=== PATIENT | male | born 1995 | race Caucasian/White ===

== ENCOUNTER 2019-02-28 11:22 | Emergency (ER) | payer MEDICAID, SELFPAY ==
[2019-02-28 11:26] VITALS: BP 138/92; PULSE 65; RESP 15; TEMP 36.4; O2SAT 97; BMI 20.9
--- NOTE | 2019-02-28 11:59 | ED.DCSUM_ITS ---
History of Present Illness Chief Complaint: Suicidal Informant: Patient, Family Onset: Month(s) Current Severity: Mild Narrative: Worsening depression intermittent suicidal thoughts increased stress at work last few days Depression on Lexapro, indicates he works at [employer] where there is been increased stress related to the high volume of visitors he was yelled out by coworkers related to the hide level of work yesterday he shot down then today he went to work again had some type of verbal altercation and then became very nervous anxious felt as if he have is having a panic attack his depression worsened and his intermittent thoughts of suicide intensified. His depression is generally controlled with Lexapro he seen by [facility] providers he is never seen a counselor never been admitted he has no history of suicidal attempt, he does not drink alcohol or use illicit drugs, he does have guns at home he lives with his who is here with him who was unaware of the intermittent suicidal thoughts but was aware of increasing stress He has no past history Past Medical History - Allergies and Home Meds Allergies/Adverse Reactions: Allergies pseudoephedrine HCl [From Sudafed] Allergy (Verified 09/24/16 19:47) Unknown RUNDIC Allergy (Uncoded 09/24/16 19:47) Unknown Primary Care Physician: Tyler Resendez MD [Primary Care Provider] - Past Medical History: - - Anxiety Smoking Status: Never smoker Review of Systems General: Denies: Chills, Fever, Sweats Eyes: Denies: Visual changes - bilaterally, Diplopia ENT: Denies: Rhinorrhea, Sore throat Cardiovascular: Denies: Chest pain, Palpitations Respiratory: Denies: Dyspnea, Cough, Dyspnea on exertion Gastrointestinal: Denies: Abdominal pain, Nausea, Vomiting, Diarrhea, Melena, Hematochezia Genitourinary: Denies: Dysuria, Hematuria, Frequency Musculoskeletal: Denies: Back pain, Extremity Pain Skin: Denies: Rash, Wounds Neurological: Denies: Headache, Weakness, Numbness Psych: Reports: Depression, Anxiety, Suicidal thoughts Physical Exam Vital Signs/Narrative: Vital Signs Temp Pulse Resp BP Pulse Ox 02/28/19 11:26 97.6 F L 65 15 138/92 H 97 General: Well nourished, Well developed, No Acute Distress Head: Normocephalic, Atraumatic Eyes: Perrl, EOMI ENT: Moist mucous membranes, No rhinorrhea Neck: Supple, Nontender Cardiovascular: Regular rate, Regular rhythm, No murmurs Respiratory: No distress, CTA bilaterally, Chest nontender Abdomen: Soft, Nontender, Nondistended, Normal bowel sounds Back: Nontender, Normal Inspection Extremities: Nontender, No edema Skin: Normal color, No rash Neurological: Alert, Oriented x3, Cranial nerves II-XII grossly intact, Normal Strength, Normal Sensation Psychological: Normal affect, Normal Mood Diagnostic/Tx/Re-eval - Medical Decision Making Given all of the above who we treated with Ativan orally screening labs and mental health evaluation the is willing to wait in the room with him until mental health services come to see him,. Mental health will determine disposition and management options Disposition pending mental health Impression final worsening depression, situational stress, intermittent suicidal thoughts ED Disposition - Plan for ED Patient: Diagnosis: Depression with suicidal ideation Referrals: Tyler Resendez MD [Primary Care Provider] -
[2019-02-28] MEDS: LORazepam 1 MG Tablet PO (12:07)
[2019-02-28 12:27] LABS: Absolute Neutrophil Count 2.9 X10^3/uL (2.0-7.7); Basophil# 0.04 X10^3/uL; Basophil% 0.8 % (0-1); Eosinophil# 0.23 X10^3/uL; Eosinophils% 4.6 % (0-5); Hematocrit 47.3 % (40-54); Hemoglobin 16.1 g/dL (13.0-16.5); Lymphocyte % 30.1 % (19-41); Mean Corpuscular Hgb 28.5 pg (27.0-32.0); Mean Corpuscular Volume 83.7 fL (80-94); Mean Platelet Vol. 10.5 fl (6.2-12.0); Monocyte# 0.31 X10^3/uL; Monocyte% 6.2 % (0-10); NRBC Flagged by Analyzer 0 % (0-5); Neutrophil # 2.88 X10^3/uL (2.7-7.7); Neutrophil % 57.9 % (47-70); Platelet Count 188 K/mm3 (150-450); RBC Distribution Width CV 11.3 % (11.6-14.6); RBC Distribution Width SD 34.3 fl (35.1-43.9); Red Blood Count 5.65 M/mm3 (4.6-6.2)
[2019-02-28 12:38] LABS: Amphetamine Urine VISTA NEGATIVE (<1000 ng/mL); Barbiturate Urine VISTA NEGATIVE (< 200 ng/mL); Benzodiazepine Urine VISTA NEGATIVE (< 200 ng/mL); Cocaine Urine VISTA NEGATIVE (< 300 ng/mL); Ecstacy Urine VISTA NEGATIVE (< 500 ng/mL); Methadone Urine VISTA NEGATIVE (< 300 ng/mL); PCP Urine VISTA NEGATIVE (< 25 ng/mL); THC Urine VISTA NEGATIVE (< 50 ng/mL); Vista UDS pH Range 5
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
--- NOTE | 2019-02-28 13:09 | ED.DEP ---
ED Disposition - Plan for ED Patient: Diagnosis: Depression with suicidal ideation Referrals: Tyler Resendez MD [STAFF PHYSICIAN] -
[2019-02-28 13:36] LABS: Anion Gap 2 (5-15); BUN 18 mg/dL (7-18); BUN/Creat Ratio 17.3 RATIO (10-20); Calcium,Total 9.7 mg/dL (8.5-10.1); Chloride 107 mmol/L (98-107); Creatinine, Serum 1.04 mg/dL (0.70-1.30); EST Glomerular Filtration Rate 93 mL/min (>60); Est Glom Filt Rate - Afr Amer 112 mL/min (>60); Glucose 83 mg/dL (74-106); Potassium 4.3 mmol/L (3.5-5.1); Sodium Level 140 mmol/L (136-145)
== END 2019-02-28 13:19 | disposition home or self-care (01) ==
LOC: ED 12:15
PROVIDERS: Emergency Provider Emergency Medicine; Family Provider Nurse Practitioner Family; PCP Nurse Practitioner Family
DX: R45.851 Suicidal ideations (principal); F32.9 Major depressive disorder, single episode, unspecified; F41.9 Anxiety disorder, unspecified; Z79.899 Other long term (current) drug therapy
CPT/HCPCS: 36415; 80048; 80307; 80320; 85025; 99284; G0480

== ENCOUNTER 2019-03-02 09:00 | Outpatient (RCR) | payer MEDICAID, SELFPAY ==
--- NOTE | 2019-03-02 09:00 | BH.COMM ---
Communication Note - Communication with Client Communication Note: Met with pt and . Completed initial paperwork and [place] [facility] Screening. Does not present as imminent danger to self. Risk is moderate. Protective factors noted. is monitoring and guns removed from the house. Counseling on reducing access to lethal means.
--- NOTE | 2019-03-02 10:36 | BH.NA_ITS ---
Physical Data - Vital Signs Temperature: 97.8 F Pulse Rate: 66 Respiratory Rate: 16 Blood Pressure: 120/66 - Height/Weight Height: 1.8 m Weight:: 70.307 kg Weight in Pounds: 155.0 lbs Current Medication Compliance - Medication Compliance Do you take your medication as prescribed?: Yes Nutritional History - Appetite Nutritional Instructions:: If client shows signs of a swallowing problem, weight change of 10 pounds or more in the last month, or is on a diabetic diet, the physician will review and request a dietitian consult, as appropriate. All unintentional weight loss will be referred to the physician for decision on need for dietitian consult. Describe your appetite:: Good Have you noticed a change in your eating habits lately?: No Functional Assessment - Sleep Pattern Describe any problems with sleeping: When asked about how he has been sleeping, client states good, and states 9-10 hours per night is his usual. - Activities Motor Activity:: Functional Sensory/Communication Assess - Communication Problems Do you have difficulty understanding what people are saying?: No What is your primary language?: [place] Zeal[place] Medical Problems/History - Pain Assessment Do you have acute or chronic pain?: No Surgical History - Surgical History Have you had any surgeries? If so, list type and date:: Yes - tonsilectomy as a child Substance Abuse - Substance Abuse Please describe substance abuse in the last 30 days:: Client denies any history or present use of drugs. Client states he drinks alcohol socially only 1-2 times per year. Mental Status Summary - Mental Status Significant Findings/Observations on Appearance and Mood:: Client is alert and oriented x 4. Client casually groomed, cooperative with assessment. Client makes fair amount of eye contact during assessment. Clients voice normal volume and rate, speech coherent. Client appears mildly anxious during assessment. Client seems to make logical associations and normal processing. Client with good attention during conversation. Client denies delusions or hallucinations. Client states although he was having SI a couple of days ago, he denies SI today. Clients gait steady. Suicide Assessment - Suicidal Ideation Are you currently or have you been suicidal in the past?: Yes Suicidal Intentional Rating Scale (SIRS): Suicidal thoughts (past) Physician Notification: If Active suicidal thoughts/Will not contract for safety is checked, contact physician and document in the Physician Notification section below. Past Psychiatric History - MH Treatment Hx Age of first mental health symptoms: Client states he was diagnosed with depression about 10 years ago, as well as anxiety. Describe (age, circumstance, etc) any past hospitalizations: Client denies past hospitalization. Current providers for mental health treatment (counselor, psychiatrist, business case analyst, etc.): Client states he does not currently have mental health treatment team. Fall Risk Assessment - Age Age: Less than 60 - Mental Status Mental Status: Willing & able to ask for assistance when needed - Physical Status Physical Status: No problems - Impairments Impairments: None - Elimination Elimination: Continent AND independent - Gait or Balance Gait or Balance: Walks independently - Hx of Falls History of falls in the past 6 months: No known history - Medications/Substances Psychotropics:: Antidepressants Medications/substances used within the past 24 hours or ordered to administer: 1-2 of the medications/substances listed above - Total Score Total Points:: 1 RN Summary of Impressions - Impressions Recommendations: Include psychiatric and medical issues, treatment planning recommendations, and discharge planning needs. Impressions: Psychiatric Issues: major depressive disorder recurrent severe without psychosis, panic attacks disorder, generalized anxiety disorder, attention deficit disorder - Level of Care How do the client's current symptoms and functional deficits support need for this level of care?: Client states he had a panic attack on 02/27/19, and then had another panic attack 02/28/19 and went to the emergency room after because it turned into a mental breakdown. Client was seen in emergency room and stated he had suicidal thoughts with plan to use gun to shoot himself. Client states today that he does not currently have suicidal thoughts and is not planning suicide attempt. Client states his took guns from house. Client states his work is a major stressor right now and led to the panic attacks. Client states when he has a panic attack, he feels irritable, shortness of breath, and emotions all over the place. Client also reports feelings of being tired and having no energy. IOP will promote gains and prevent further decompensation while providing social support and skills training.
--- NOTE | 2019-03-02 11:25 | BH.SGPN.GN ---
Behaviors/Verbalizations/Mental Status: []Client alert and oriented, casual in appearance. Eye contact fair. Motor activity appropriate. Speech within normal limits. Affect constricted, mood anxious and depressed. Thoughts linear, logical, no signs of hallucinations or delusions. Client Response/Progress/Benefit: []Pt a passive participant during discussion, providing input to discussion when elicited by therapist. Pt able to connect with the discussion reviewing three categories of skills for managing anxiety which included mind-based, body-based, and self-soothing. Listened to group brainstorm various skills within the different categories. Pt identified he is willing to try breathing and meditation to increase his relaxation skills. Pt seemed to benefit from increased awareness of healthy skills to manage anxious symptoms and identifying skills willing to practice outside treatment environment. Pt's first day in IOP. Recommended to continue IOP level of care to continue to increase healthy coping skills, identify and challenge distorted thoughts, and prevent decompensation. Narrative Note: []
[2019-03-02 11:26] VITALS: BP 120/66; PULSE 66; RESP 16; TEMP 36.6
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
--- NOTE | 2019-03-02 12:40 | BH.PSY.EVA_ITS ---
Initial Treatment Plan - Patient Information Visit Information: ADMISSION DATE: EXPECTED LOS: 4-6 weeks - Problems/Symptoms Problem #1:: Depression Symptom:: anhedonia, sadness, suicidal ideation. worthlessness, thoughts of anastasiia f-harm Problem #2:: Anxiety Symptom:: Panic attacks, rumination
--- NOTE | 2019-03-04 09:03 | BH.SGPN.GN ---
Behaviors/Verbalizations/Mental Status: []Client alert and oriented, casually dressed and groomed. Eye contact fair. Motor activity appropriate. Speech within normal limits. Affect constricted, mood depressed and anxious. Thoughts linear, logical, no signs of hallucinations or delusions. Reviewed client?s symptom tracker, no risk for suicidal ideation, plan, or intent as of 03/04/19. Client Response/Progress/Benefit: []Client responded well to session, quiet, but receptive to feedback and participating when prompted. Client reports feeling ?a little nervous? today as it is client?s second day in IOP. Client reported his mental health wins today include coming back to IOP even though he was anxious. Client stated groups of people make client anxious, so he is currently practicing ?sitting with the uncomfortable.? The group and client able to identify the benefits of sitting with uncomfortable feelings including reducing anxiety over time. Client?s second mental health win today is that he is getting his physical health taken care of that client has been ignoring. Appeared to benefit from connecting with peers and confronting anxiety-producing situations. Will continue IOP tx to prevent decompensation of anxiety and depressive symptoms as well as maintain safety.? Narrative Note: []
--- NOTE | 2019-03-04 11:15 | BH.SGPN.GN ---
Behaviors/Verbalizations/Mental Status: []Client alert and oriented, disheveled in appearance. Eye contact fair. Motor activity appropriate. Speech within normal limits. Affect constricted, mood depressed. Thoughts linear, logical, no signs of hallucinations or delusions. Client Response/Progress/Benefit: []Client was an semi-active participant in group discussion, contributing to discussion at times and listened attentively to others. Completed worksheet and willing to share with the group. Client reported believes he chapter 4? as client shared he recognizes his problems and is putting forth effort to solve the problems. Client shared to get to the next chapter he is willing to talk to someone he trusts about his problems so he can get another perspective on what might help him. Benefited from group by identifying thoughts and behaviors that have kept him stuck and developing plan to promote progress. Recognizes avoiding his problems has only made his situation worse. Will continue in IOP to increase healthy coping, challenge negative thoughts and prevent decompensation. Narrative Note: []
--- NOTE | 2019-03-07 10:13 | BH.SGPN.GN ---
Behaviors/Verbalizations/Mental Status: []Client alert and oriented, casually dressed and groomed. Eye contact fair to good. Motor activity appropriate. Speech within normal limits. Affect congruent, mood anxious, depressed. Thoughts linear, logical, no signs of hallucinations or delusions. Client Response/Progress/Benefit: [Client was attentive and actively engaged throughout. Participated in discussion of the quote and shared agreement that ?we have the choice to choose a different path?. The group worked together to identify barriers that keep one from choosing a new and healthier path to mental wellness which included; unhealthy habits, fear of failure, fear of the unknown, apathy, procrastination, lack of awareness, and negative thinking. Attentive during psychoeducation on the chapters of life, providing limited insight to distinguishing factors in each chapter, though actively listening. Reflected that in order to move to next chapter we need to get past just having the realization of how or choices are impacting mental health and begin to actively make changes. Benefited from increased awareness and education on barriers to choosing new wellness paths and chapters of life. Progress noted as client able to challenge himself to provide input at least once which is their identified goal. Will continue IOP tx to further reduce anxiety and depression, while improving client?s ability to function at his baseline.] Narrative Note: []
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
--- NOTE | 2019-03-08 10:15 | BH.SGPN.GN ---
Behaviors/Verbalizations/Mental Status: []Client alert and oriented, casually dressed and groomed. Eye contact good. Motor activity appropriate. Speech within normal limits. Affect constricted, mood anxious. Thoughts linear, logical, no signs of hallucinations or delusions. Client Response/Progress/Benefit: []Client active participant during group AEB client contributing to discussion. Client reported it is important to have a variety of social supports and indicated that ?supports help us grow and keep us grounded.? Client helped group brainstorm potential consequences of not having a support system and barriers to developing social supports, which included: feeling like a burden, poor communication, cognitive distortions, fear of rejection and judgement, being closed-minded, and being afraid to ask for help. Group identified benefits of social support as reminder to use healthy coping skills, positive reinforcement, constructive feedback, less anxiety, different perspective, less self-doubt, resources, and accountability. Client stated it is important to have more than one kind of support. Client took an active role during the group activity and was providing positive encouragement as well as open to feedback from others. Appeared to benefit from gaining awareness of barriers that keep people from seeking social support as well as identifying the benefits of increasing support. Progress noted as client is more social during the group sessions. Will continue IOP tx to prevent decompensation, improve healthy coping skills, and maintain safety. Narrative Note: []
--- NOTE | 2019-03-08 11:15 | BH.SGPN.GN ---
Behaviors/Verbalizations/Mental Status: [Pt alert and oriented, eye contact good, casually dressed, motor activity appropriate, speech normal rate and tone, mood anxious and dysthymic, congruent affect, thoughts linear and intact, no evidence of delusions or hallucinations.] Client Response/Progress/Benefit: [Client engaged and remained an active participant AEB client contributing to discussion, participating in activity, and listening to others. Client contributed to discussion about the different types of support and benefits different types of support can provide. Client worked with the group to identify strategies for improving development of new supports and better utilization of current supports. Client identified he would like to improve use of personal and professional supports and indicated that this would benefit his mental health by increasing self-esteem and reduce impact of current stressors. Client identified his first step is to identify where he can begin to seek help and take steps to reach out to identified resources. Client seemed to benefit from identifying a type of support he would like to improve upon and creating actionable steps to promote follow-through. Client to continue IOP level of care to prevent decompensation, improve self-esteem, reduce depression, and promote utilization of healthy coping skills.] Narrative Note: []
--- NOTE | 2019-03-08 14:56 | BH.MTP ---
Master Treatment Plan - Patient Information Program Physician:: Dr. 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 Description of Barriers: Pt's negative thinking, avoidance behaviors, passive thoughts of , apathy, and isolative behaviors could all be barriers to treatment. Functional Impact: Pt's mental health symptoms impacting pt's ability to complete job responsibilities at work. This has led pt to go on FMLA from work becuase unable to manage anxiety while at work. Pt's mental health symptoms also impacting relationships because has been isolating more frequently. Prior to admission pt was having suicidal thoughts with idea of using a gun to kill himself. Pt not functioning at baseline. Goal Relevant Strengths/Supports: Pt is intelligent, creative and verbalizes desire to get better. Pt's is supportive of pt getting help. - Objectives Objective #1 Stated Objective: Identify and replace 3-4 negative self-talk messages that reinforce depressive symptoms. Interventions: Therapist will help client identify distorted, negative beliefs about self and world and replace those messages with positive, affirmative messages. Discharge Criteria: Client will have achieved this goal when can identify at least 3 negative self-talk messages and replace those messages with positive, affirmative messages. Target Date: 04/08/19 Review Date: 03/30/19 Objective #2 Stated Objective: Pt will decrease depressive symptoms AEB pt?s score on the DSM 5 cross-cutting measure and improve pt?s daily functioning. Interventions: Through groups and individual therapy, pt will be provided with education on cognitive distortions, mistaken beliefs, and identifying and combating negative self-talk. Therapist will assist pt with getting back into the activities she once enjoyed as well as increasing healthy coping strategies. Discharge Criteria: Pt will have met this goal when pt?s score on the DSM 5 cross cutting measure for depression has been decreased and per pt?s report daily functioning has improved. Target Date: 04/08/19 Review Date: 03/30/19 Problem/Goal #2 - Problem/Goal #2 Stated Goal:: Client will reduce overall frequency, intensity, and duration of anxiety so that daily functioning is not impaired. Description of Barriers: Pt's negative thinking, avoidance behaviors, passive thoughts of , apathy, and isolative behaviors could all be barriers to treatment. Functional Impact: Pt's mental health symptoms impacting pt's ability to complete job responsibilities at work. This has led pt to go on FMLA from work becuase unable to manage anxiety while at work. Pt's mental health symptoms also impacting relationships because has been isolating more frequently. Prior to admission pt was having suicidal thoughts with idea of using a gun to kill himself. Pt not functioning at baseline. Goal Relevant Strengths/Supports: Pt is intelligent, creative and verbalizes desire to get better. Pt's is supportive of pt getting help. - Objectives Objective #1 Stated Objective: Client will learn and implement 2-3 calming skills to reduce overall anxiety and manage anxiety. Interventions: Therapist will teach the client calming/relaxation skills and help clients connect ways to apply skills to daily life. Discharge Criteria: Client will have achieved this goal when can verbalize at least 2 calming skills and implement those skills. Target Date: 04/08/19 Review Date: 03/30/19 Objective #2 Stated Objective: Pt will decrease anxious symptoms AEB pt?s score on the DSM 5 cross-cutting measure improve pt?s daily functioning. Interventions: Through groups and individual therapy, pt will be provided education about anxiety?s impact on body and common physiological reaction to anxiety. Therapist will teach pt appropriate breathing techniques and build healthy coping skills to manage daily anxieties. Discharge Criteria: Pt will have met this goal when pt?s score on the DSM 5 cross cutting measure for anxiety has been decreased and per pt?s report daily functioning has improved. Target Date: 04/08/19 Review Date: 03/30/19
--- NOTE | 2019-03-08 15:39 | BH.PSA ---
Development & Family of Origin - Family History Family History: Family History (Last Reviewed 04/27/19 @ 09:[address] Vj Ferreira MD) Father Asthma
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
--- NOTE | 2019-03-09 09:05 | BH.SGPN.GN ---
Behaviors/Verbalizations/Mental Status: []Client alert and oriented, casually dressed and groomed. Eye contact fair. Motor activity appropriate. Speech within normal limits. Affect congruent, mood anxious. Thoughts linear, logical, no signs of hallucinations or delusions. Reviewed client?s symptom tracker, no risk for suicidal ideation, plan, or intent as of 03/09/19. Client Response/Progress/Benefit: []Client responded well to session, attentive and engaged throughout. Client reports feeling ?optimistic? today but he is also displaying anxious behaviors such as shaking his leg and reporting acid reflex. Client reported his biggest stressor is his physical health and uncertainty about his symptoms. Client was reminded by the quality assurance lead to practice stress-reducing coping skills as anxiety can exacerbate physical health and lead to rumination. Client identified his mental health wins which included; spending time with a friend after group yesterday and opening up about client?s mental health. Client stated his friend was receptive and offered a different perspective that helped client see things in a more positive lens. Client appeared to benefit from connecting with peers and reflecting on how his supports can help client. Progress noted in client?s report of reaching out to supports. Will continue IOP tx prevent decompensation, reduce anxiety, and increase healthy coping skills. Narrative Note: []
--- NOTE | 2019-03-09 09:30 | BH.NET ---
Nursing Education/Training - Session Information Type of Session: Individual - Discussed client's TSH and Vitamin D level results with him and impact low vitamin D might have. Informed client monthly Vitamin D prescription for 3 months was sent to pharmacy. Pt voices understanding.
--- NOTE | 2019-03-09 10:27 | BH.SGPN.GN ---
Behaviors/Verbalizations/Mental Status: [Client alert and oriented, casually dressed and appropriately groomed. Eye contact good. Motor activity appropriate. Speech WNL. Affect congruent, mood euthymic, anxious. Thoughts linear, logical, no signs of hallucinations or delusions.] Client Response/Progress/Benefit: [Client active participant as evidenced by providing input throughout discussion and appeared to listen attentively to others, as well as taking notes. Client agreed that he experiences automatic thoughts and often these thoughts can be negative. Client connected with the discussion about how distorted thought patterns can reinforce mental health symptoms. Client noted that he has previously fallen into a pattern of overgeneralizing in a situation which can lead to unwillingness to ask for help or assuming the worst. Client sheared an example of this related to assuming that when one bad thing happens then more bad things are bound to happen. Client reported he recognizes cognitive distortions can lead to increased depression, increase anxiety, and impact relationships. Appeared to benefit from increasing awareness of cognitive distortions and how they can impact emotions and behaviors. Client to continue IOP to stabilize moods, improve emotional regulation, and prevent decompensation.] Narrative Note: []
--- NOTE | 2019-03-09 11:25 | BH.SGPN.GN ---
Behaviors/Verbalizations/Mental Status: []Client alert and oriented, casually dressed and fair grooming. Eye contact good. Motor activity appropriate. Speech within normal limits. Affect congruent, mood dysthymic. Thoughts linear, logical, no signs of hallucinations or delusions. Client Response/Progress/Benefit: []Client?engaged during session AEB client providing contributions throughout group session and engaging in activity. Client worked cooperatively with peers during group activity. Client acknowledged the importance of needing to have awareness and put forth the effort to challenge, reframe, and replace distorted thought patterns. Client worked cooperatively with group to challenge distorted thoughts and was attentive in learning strategies to combat distortions. Client reported a distorted thought he will practice reframing is Because I have certain physical symptoms I must have a brain tumor. Client stated he is starting to recognize he might be catastrophizing physiological symptoms to the worst case scenario which increases his anxiety. Client seemed to benefit from increased awareness of cognitive distortions and practicing reframing distorted thoughts. Client to continue IOP level of care to challenge distorted thoughts, increase healthy coping and prevent decompensation. Narrative Note: []
--- NOTE | 2019-03-11 09:00 | BH.SGPN.GN ---
Behaviors/Verbalizations/Mental Status: [] Eye contact is good. Motor activity is appropriate. Appearance is disheveled. Speech is Appropriate. Mood is anxious. Affect is congruent. Thoughts are linear and logical. No evidence of psychosis. Reviewed daily check in sheet and no reports of suicidal thoughts or intent. Client Response/Progress/Benefit: [] Pt participated at times during group discussion. Emotion for today is optimistic. Able to identify some mental health wins stating increased socialization as he went out to lunch with his adopted dad and is in-laws. More agreeable and less stressed about spending holidays with 's family. Talked briefly about his anxiety around people and how it impacts his functioning. Talked about his work responsibilities and how he can become overwhelmed while working with people. Benefited from group support, encouragement, and feedback. Will continue in IOP to prevent decompensation, maintain safety, improve functioning to return to work, and increase healthy coping. Narrative Note: []
--- NOTE | 2019-03-11 10:10 | BH.SGPN.GN ---
Behaviors/Verbalizations/Mental Status: []Client alert and oriented, casual dress and fair hygiene. Eye contact fair. Motor activity appropriate. Speech within normal limits. Affect constricted, mood dysthymic. Thoughts linear, logical, no signs of hallucinations or delusions. Client Response/Progress/Benefit: [] Client was an active participant in group discussion and activity. Attentive during psychoeducation and commenting on the quote. Client stated ?you?re never ready for change and will always find a way to push doing something difficult off?. Worked with the group to identify benefits to making changes in our lives which included: increasing resilience, setting and accomplishing goals, and seeing setbacks as a learning tool. Group then identified barriers to change or what keeps us from making changes which included: uncomfortable emotions, low motivation, lack of support, closed mindedness, high expectations, and stubbornness. Client stated fear the change will go ?bad? is additional barrier to change. Client participated along with group in activity where they identified and discussed the emotions related to change. Client was attentive during psychoeducation on the change process. Benefited from increased awareness and understating of emotions, benefits, and barriers related to change. Will continue IOP tx to prevent decompensation, continue use of healthy coping skills and challenge distorted thoughts. Narrative Note: []
--- NOTE | 2019-03-11 11:11 | BH.SGPN.GN ---
Behaviors/Verbalizations/Mental Status: []Client alert and oriented, casually dressed and groomed. Eye contact good. Motor activity appropriate. Speech within normal limits. Affect constricted, mood anxious. Thoughts linear, logical, no signs of hallucinations or delusions. Client Response/Progress/Benefit: []Client was an active participant AEB client participating during discussion and engaging in group activity. Client participated in the activity and processed emotions and barriers associated with making change. Client appeared to connect with discussion on weighing the pros and cons associated with change and benefited from learning to do so through use of decisional balance sheet. Identified he is currently in the action stage of change as client reports he is already beginning to talk with his supports and be more transparent about his feelings, but he wants to do this more often. Client able to identify the pros of being more open about his feelings which included; improved mental health, reduced stress, and reduced depression. Progress noted in client?s report of reduced isolation and less suicidal ideations. Recommended continued IOP tx to prevent decompensation, increase healthy coping skills, and reduce anxiety. Narrative Note: []
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
--- NOTE | 2019-03-14 10:12 | BH.SGPN.GN ---
Behaviors/Verbalizations/Mental Status: []Client alert and oriented, casually dressed and groomed. Eye contact good. Motor activity appropriate. Speech within normal limits. Affect constricted, mood anxious. Thoughts linear, logical, no signs of hallucinations or delusions. Client Response/Progress/Benefit: []Client receptive to session, provided input and actively listening throughout discussion on stress. Able to brainstorm with the group the positive and negative aspects of stress on physical and mental health. Client stated if one has negative thoughts about stress, it can lead to self-sabotaging behaviors. Client participated in identifying current stressors impacting mental health. Client?s current stressors included; his mother visiting, health problems, and not working. Client noted that his most significant stressor currently is feeling anxious about his mother coming to visit. Client reports belief that his stress jar is not full, but it is half full. Client stated when his stress is too high client will cry, shut down, and experience anger outbursts. Appeared to benefit from gaining awareness of own current stressors and learning about the impact stress has on overall wellbeing. Progress noted as shown by client?s reduce suicidal ideations. Recommend continued IOP tx to prevent decompensation of anxiety symptoms and to increase mood stability. Narrative Note: []
--- NOTE | 2019-03-14 11:15 | BH.SGPN.GN ---
Behaviors/Verbalizations/Mental Status: []Client alert and oriented, casually dressed and groomed. Eye contact good. Motor activity appropriate. Speech within normal limits. Affect constricted, mood dysthymic. Thoughts linear, logical, no signs of hallucinations or delusions. Client Response/Progress/Benefit: []Pt engaged in session as evidenced by pt listening attentively to others, giving ideas during activity, and providing input throughout session. Pt worked with the group to complete the challenge activity. Pt reported feeling anxious and stressed during the activity, but was able to use self-soothing and thought challenge skills to manage emotions. Pt actively listening during discussion about the 4 A's of managing stress. Identified he will focus on decrease isolative behaviors by altering his approach to coping with current stressors. Pt seemed to benefit from increased awareness of the impact of stress on mental health and increasing repertoire of stress management strategies. Pt to continue in IOP to prevent decompensation, increase utilization of healthy coping skills, and challenge distorted thoughts. Narrative Note: []
--- NOTE | 2019-03-17 09:02 | BH.SGPN.GN ---
Behaviors/Verbalizations/Mental Status: [Eye contact is good. Motor activity is appropriate. Appearance is casual, grooming appropriate. Speech is Appropriate rate and tone. Mood is anxious, euthymic. Affect is congruent. Thoughts are linear and logical. No evidence of psychosis. Reviewed daily check in sheet and pt denies any active SI, plan, or intent as of this date.] Client Response/Progress/Benefit: [Pt responded well to session, engaged throughout and open to processing with the group. Pt indicated current emotion as ?anxious? and discussed that this is due to being on FMLA from work and struggling with finances as a result. Pt indicated knowing he can ask his supports for assistance but feels guilty about doing so. Pt able to challenge this and noted insight that his supports would not offer if they didn?t want to help. He identified connecting with support provided by fellow participants and indicated willingness to reach out to [employer] as well. He did well to recognize current mental health wins as well which included challenging himself to share first in group which would typically make him anxious. Expressed this is a safe way to begin working on reducing overall social anxiety levels. Additional win identified as using deep breathing and grounding strategies to reduce anxiety during his family [place] get together. Appeared to benefit from the support and structure of group environment. Progress in self-report of improved ability to identify and successfully apply healthy coping strategies for managing anxiety. Pt recommended continued IOP tx to prevent decompensation, promote ongoing application of healthy coping skills, and further reduce mental health sx.] Narrative Note: []
--- NOTE | 2019-03-17 10:05 | BH.SGPN.GN ---
Behaviors/Verbalizations/Mental Status: []Client alert and oriented, casually dressed and groomed. Eye contact good. Motor activity appropriate. Speech within normal limits. Affect constricted, mood anxious. Thoughts linear, logical, no signs of hallucinations or delusions Client Response/Progress/Benefit: []Client responded well to session, attentive and providing to discussion at times. Client connected with the topic of crisis and identified examples of potential crisis to include loss of a loved one, relationship problems, and disasters. Client shared anything can become a crisis if a person has too many stressors in their life. Participated in the discussion of how coping with external crisis by using unhealthy coping skills could lead to personal crisis. Group identified unhealthy coping skills to include; isolation, overscheduling, eating too much, and sleeping too much. Group shared it is possible to prevent an external crisis from becoming an internal crisis, but it takes awareness of warning signs. Group identified warning signs for crisis which included; negative thoughts, crying uncontrollably, numbing, lack of motivation, and increased agitation. Client completed the personal warning signs worksheet and identified crisis warning signs to include; rapid mood changes, lack of motivation and no pleasure in interests, and isolation. Benefited from group by increasing awareness of crisis and personal warning signs. Progress noted in client?s reduce avoidance behaviors. Will continue IOP tx as client continues to struggle with daily anxiety and depressive symptoms. Narrative Note: []
--- NOTE | 2019-03-17 11:12 | BH.SGPN.GN ---
Behaviors/Verbalizations/Mental Status: []Client alert and oriented, casually dressed and groomed. Eye contact good. Motor activity appropriate. Speech within normal limits. Affect constricted, mood dysthymic. Thoughts linear, logical, no signs of hallucinations or delusions. Client Response/Progress/Benefit: []Client responded well to session as evidenced by client listening attentively to others and sharing when prompted. Client identified his warning signs for crisis and gained further awareness of his earliest warning signs. Client appeared to connect that awareness of these warning signs can prevent further crisis and help client utilize healthy coping skills to break the cycle. Client created a crisis action plan to help client better manage warning signs for crisis. Client?s plan included grounding, positive affirmations, reframing distorted thoughts, utilizing supports, setting goals, and using opposite action. Client selected tangible items for crisis survival kit that will help him remember these crisis interventions. Client appeared to benefit from creating a crisis action plan and increasing his self-awareness. Client to continue IOP to prevent decompensation, increase healthy coping and decrease isolative behaviors. Narrative Note: []
--- NOTE | 2019-03-18 10:12 | BH.MDN_ITS ---
Multi-Disciplinary Note - Note 30-min Individual Time Started:: 09:19 Date: 03/18/19 Purpose of session/treatment goals addressed:: Purpose of session was to assess pt's current symptoms and stressors. Other topics discussed: returning to work tentative plan, reviewing healthy coping skills, and processing anxiety about mom being in town. Eye Contact:: Good Motor Activity:: Appropriate Appearance:: Disheveled Speech:: Appropriate Mood:: Depressed Affect:: Constricted Thoughts:: Linear, Logical, No evidence of hallucinations/delusions noted Staff Interventions:: Therapist used open ended questions to elicit pt's current symptoms and stressors. Therapist elicited pt's thoughts about coping skills that are helpful. Therapist worked with pt to identify strategies that can help pt manage his anxiety and frustration while at work. Assisted pt with challenging negative thoughts. Provided support by using active listening and validating emotions. Client Response:: Pt reported overall he has been doing much better with imp roved mood and decreased anxiety. Pt stated he has had increased anxiety last couple of days because knowing his mom is in town for a month. Pt reported he is unsure if he will actually visit his mom because anxious it will bring back memories from past traumas. Pt stated in the past when his mom has visited she wouldn't follow through with setting up a day to meet up, which left pt feeling disappointed. Pt reported besides some anxiety related to potentially seeing his mom, pt stated his mood has overall improved. Pt attributes decreased depressive symptoms to not being at work right now and using the coping skills he has learned so far. Pt stated he gets stressed about having to go back to work because he doesn't think it is a healthy environent for him. Pt reported the expectations at work tend to be unrealistic which increases his anxiety and depression when can't perform at level desired by supervisors. With asistance pt recognizes his thought patterns while at work increase his agitation and focuses on the negative. Worked with therapist to challenge distorted thoughts. Stated feeling anxious about going back to work in two weeks. Pt connected with education about connection between thoughts, behaviors and emotions. Agrees if he challenges his negative thoughts it can improve his mood while at work and decrease agitation. Risks/Concerns:: denies current suicidal ideation, plan or intention to date. Progress Toward Goals/Plan:: Progress noted with pt reporting decrease in both depressive an anxious symptoms. Pt utilizing healthy coping skills to help manage his symptoms. Pt recommended to continue IOP to maitain gains, decrease work related anxiety and prevent decompensation. Time Stopped:: 09:48
--- NOTE | 2019-03-18 10:15 | BH.SGPN.GN ---
Behaviors/Verbalizations/Mental Status: [Client alert and oriented, casually dressed and groomed. Eye contact good. Motor activity appropriate. Speech within normal limits. Affect congruent, mood anxious, dysthymic. Thoughts linear, logical, no signs of hallucinations or delusions. ] Client Response/Progress/Benefit: [Client was an active participant AEB providing input throughout session and appearing engaged. The group discussed the quote and how the emotion anger is not good or bad, but one can respond to anger in healthy or harmful ways. Client contributed as the group worked to define anger and its causes, as well as the internal and external impacts of anger. Group identified potential consequences of unhealthy management of anger to include: losing relationships, guilt, internalizing emotions, lashing out, and worsening mental health symptoms. Client identified underlying factors of his anger which included: feeling overwhelmed, frustrated, pressure, high expectations, and self-doubt. Client indicated that getting ?snappy?, crying, narrow thinking, impulsivity, shutting down, and lashing out are common responses she has when feeling angry. Benefited from group by increasing awareness of the negative impacts of unmanaged anger and underlying factors that contribute to personal anger. Progress noted given pt increased positive engagement and improved insight into emotions. Will continue IOP tx to reduce depression, promote healthy change behaviors, and improve mood stability.] Narrative Note: []
--- NOTE | 2019-03-18 11:15 | BH.SGPN.GN ---
Behaviors/Verbalizations/Mental Status: []Client alert and oriented, casual dress, hygiene fair. Eye contact fair. Motor activity appropriate. Speech within normal limits. Affect congruent, mood euthymic. Thoughts linear, logical, no signs of hallucinations or delusions. Client Response/Progress/Benefit: []Pt active participant throughout AEB engagement in both activity and discussion potions of session. Pt did well to challenge self to complete the group activity and incorporate anger management/emotion regulation skills in order to do so. Pt stated going slow is what helped his group be successful in the activity. Pt stated he did not want to go slow because just wanted the uncomfortable emotions to go away. Pt recognized avoiding uncomfortable emotions is unhelpful. Pt worked with the group to identify the various barriers faced in the activity as well as skills used to successfully complete the task at hand without becoming dysregulated or uncontrollably angry. Brainstormed with group healthy coping skills to help manage anger which included: listening to music, changing environment, breathing, coloring, walking, exercise, and petting an animal. He appeared to benefit from brainstorming with the group potential strategies to manage anger in healthy ways. Pt identified plans to begin using physical and mental distraction as a means of coping with anger. Recommended continued IOP to improve daily functioning, promote emotion regulation, and prevent decompensation. Narrative Note: []
--- NOTE | 2019-03-21 11:15 | BH.SGPN.GN ---
Behaviors/Verbalizations/Mental Status: []Client alert and oriented, casually dressed and groomed. Eye contact fair. Motor activity appropriate. Speech within normal limits. Affect congruent, mood anxious. Thoughts linear, logical, no signs of hallucinations or delusions. Client Response/Progress/Benefit: []Client willing to participate in activity and provided input during discussion. Client did well to work with the group and actively listen as others provided suggestions/feedback. Client agreed with peers that the group?s attitude toward the activity negatively impacted their ability to succeed. Client stated that lack of communication and wanting to give up when things got difficulty negatively impacted the group?s success. Client engaged in discussion reviewing positive and negative forces impacting life and mental wellness. Client identified personal positive forces that aid in progressing toward mental health goals include: supports, healthy coping skills, being open-minded, and sharing his emotions. Client indicated personal negative forces to include: negative self-worth, depression, negative attitude, and lack of communication. Client seemed to benefit from increased awareness of personal positive and negative forces in life and impact they have on mental health and wellness. Client to continue IOP level of care to further decrease depressive symptoms and tp increase emotional regulation skills. Narrative Note: []
--- NOTE | 2019-03-21 11:15 | BH.SGPN.GN ---
Behaviors/Verbalizations/Mental Status: []Eye contact is fair. Motor activity is appropriate. Appearance is casual. Speech is Appropriate. Mood is anxious. Affect is congruent. Thoughts are linear and logical. No evidence of psychosis. Client Response/Progress/Benefit: []Pt was an engaged participant in activity as evidenced by pt providing input at times and attentively listened to others. Group worked together to come up with common negative forces in their lives which can hold them back from growth. Negative forces included: toxic relationships, negative thoughts, low motivation, and poor boundaries. Group then worked together to identify common positive forces which help us grow. Theses included: Healthy coping skills, positive support, self-care, positive self-talk and challenging negative thoughts. Pt stated positive affirmations from supports can be a positive force because can help you see positives when struggling. Pt was attentive during psychoeducation on the importance of utilizing many aspects of positive forces to help one grow. Benefited from group with increased insight and awareness on the impact of negative and positive forces on mental wellness. Narrative Note: []
--- NOTE | 2019-03-22 09:02 | BH.SGPN.GN ---
Behaviors/Verbalizations/Mental Status: []Client alert and oriented, disheveled appearance. Eye contact-staring. Motor activity appropriate. Speech within normal limits. Affect constricted, mood anxious, depressed. Thoughts linear, logical, no signs of hallucinations or delusions. Reviewed client?s symptom tracker, no risk for suicidal ideation, plan, or intent as of 03/22/19. Client Response/Progress/Benefit: []Client responded well to session, withdrawn at first, but receptive to prompting by therapist. Client reports feeling ?depressed? today. Client stated his stressor today is that he is not in a positive mindset. Client could not identify a specific trigger, but he shared coming to group today has helped client begin to challenge his mindset. Client?s mental health wins today included doing ?a lot of stuff? over the weekend and hanging out with a friend. Client receptive to feedback from peers who helped client combat distortions reinforcing depression. Appeared to benefit from challenging negative thoughts and reframing them with support from peers. Will continue IOP tx to prevent decompensation and improve mood stability. Narrative Note: []
--- NOTE | 2019-03-22 10:17 | BH.SGPN.GN ---
Behaviors/Verbalizations/Mental Status: []Eye contact is good. Motor activity is appropriate. Appearance is casual. Speech is Appropriate. Mood is dysthymic. Affect is congruent. Thoughts are linear and logical. No evidence of psychosis. Client Response/Progress/Benefit: []Participated throughout group discussions, providing input and listening actively. Engaged during psychoeducation portion reviewing fixed mindset. Providing examples throughout. Pt worked with group to identify how a fixed mindset can impact our mental health which included: decreased hope, giving up when faced with a setback, not asking for help, low self-esteem, and isolation/avoidance. Pt identified one fixed thought he has is, I?m not good enough. He identified this fixed thought makes him doubt his self-worth, reduces motivation, and leads to isolative behaviors. Recognized that this fixed thought results in maintaining symptoms of depression and has led to decreased self-care in and strained his relationship with his in the past. Benefited from group by increasing awareness of how one's mindset impacts mental health. Pt to continue IOP level of care to increase utilization of healthy coping skills, challenge distorted thoughts, and prevent decompensation. Narrative Note: []
--- NOTE | 2019-03-22 11:10 | BH.SGPN.GN ---
Behaviors/Verbalizations/Mental Status: []Client alert and oriented, casually dressed and fair grooming. Eye contact fair. Motor activity appropriate. Speech within normal limits. Affect congruent to topic being discussed, mood euthymic. Thoughts linear, logical, no signs of hallucinations or delusions. Client Response/Progress/Benefit: []Client engaged during discussion and listened attentively to peers. Client did well to apply cognitive restructuring to reframe previously identified fixed thoughts, transforming his fixed thought from previous group to a growth thought of ?I can improve my ability to drive by actually practicing.? Client stated his anxious thoughts have kept him from attempting to drive which continues to keep him stuck. Client participated as the group brainstormed strategies to promote growth-mindset thinking. Benefitted from discussing benefits of growth mindset and brainstorming strategies for prompting growth-mindset. Client displaying progress with reporting improved mood and continued use of self-care activities. Will continue IOP tx to promote gains, continue application of skills and prevent decompensation. Narrative Note: []
== END 2019-03-22 23:59 ==
LOC: BHIOP 09:00
PROVIDERS: Family Provider Family Medicine; PCP Family Medicine; Referring Provider Psychiatry & Neurology Psychiatry; Visit Provider Psychiatry & Neurology Psychiatry
DX: F33.2 Major depressive disorder, recurrent severe without psychotic features (principal); F41.0 Panic disorder [episodic paroxysmal anxiety]; F41.1 Generalized anxiety disorder; F98.8 Other specified behavioral and emotional disorders with onset usually occurring in childhood and adolescence; Z79.899 Other long term (current) drug therapy
CPT/HCPCS: 90792; H0035; H2012; H2020; T1002; 90832

== ENCOUNTER → 2019-03-08 12:54 | Outpatient (CLI) | payer MEDICAID, SELFPAY ==
[2019-02-28 11:26] VITALS: BMI 20.9
[2019-03-08 14:08] LABS: Vitamin D,25 Hydroxy 25.8 ng/mL (29.95-100.01)
[2019-03-08 14:54] LABS: Thyroid Stim Hormone (TSH) 1.42 uIU/mL (0.358-3.74)
== END ==
PROVIDERS: Family Provider Family Medicine; PCP Family Medicine; Referring Provider Psychiatry & Neurology Psychiatry; Visit Provider Psychiatry & Neurology Psychiatry
DX: F33.2 Major depressive disorder, recurrent severe without psychotic features (principal)
CPT/HCPCS: 36415; 82306; 84443

== ENCOUNTER 2019-03-24 09:00 | Outpatient (RCR) | payer MEDICAID, SELFPAY ==
[2019-03-23 01:05] VITALS: BP 120/66; PULSE 66; RESP 16; TEMP 36.6
--- NOTE | 2019-03-24 09:03 | BH.SGPN.GN ---
Behaviors/Verbalizations/Mental Status: []Client alert and oriented, casually dressed and groomed. Eye contact fair. Motor activity appropriate. Speech within normal limits. Affect congruent, mood anxious. Thoughts linear, logical, no signs of hallucinations or delusions. Client Response/Progress/Benefit: []Pt was an engaged participant in group discussion. Emotion for today is anxious. Pt initially reported he couldn't think of any mental health positives. With assistance from therapist pt identified a mental health positive was going to his sister's on [address] for a small gathering. Pt stated he didn't want to go, but use self-talk to help push himself to attend the green party. Pt reported he is glad he chose to attend the green party because had a really good time. Pt identified additional win as taking time each day to draw. Identified current stressor as going back to work next week. Pt stated he is anxious he will experience another mental breakdown while at work. With assistance pt able to recognize he is in a different state of mind now compared to when he was having problems at work. Progress noted in pt's use of healthy skills outside treatment environment. Continued IOP tx recommended to continue application of healthy coping skills, improve daily functioning so can return to work, and prevent decompensation. Narrative Note: []
--- NOTE | 2019-03-24 10:05 | BH.SGPN.GN ---
Behaviors/Verbalizations/Mental Status: []Client alert and oriented, casually dressed and groomed. Eye contact good. Motor activity appropriate. Speech within normal limits. Affect constricted, mood anxious. Thoughts linear, logical, no signs of hallucinations or delusions. Client Response/Progress/Benefit: []Client was an active participant throughout session, contributing to discussion and attentive. Commented on the quote sharing ?without goals we go downhill.? Group worked together to define goals and identify the benefits of developing goals which included: increase confidence, seeing progress, reducing black and white thinking, and sense of purpose. Client shared one sets goals with the intent to make progress and move forward. Client reported, he often becomes impatient while working towards his goals which can act as a barrier to accomplishing goals. Group also discussed short-term and long-term goals as well as the benefits of the two types. Attentive and contributing during education on developing SMART goals. Benefited from increase awareness of goal-setting methods. Will continue in IOP to further decrease anxiety and depressive symptoms. Narrative Note: []
--- NOTE | 2019-03-24 14:01 | BH.MDN ---
Multi-Disciplinary Note - Note 30-min Individual Time Started:: 11:30 Date: 03/24/19 Purpose of session/treatment goals addressed:: Purpose of session was to assess pt's current symptoms and stressors. Other topics included: creating return to work plan and radical acceptance. Eye Contact:: Fair Motor Activity:: Appropriate Appearance:: Casual Speech:: Appropriate Mood:: Anxious, Dysthymic Affect:: Constricted Thoughts:: Linear, Logical, No evidence of hallucinations/delusions noted Staff Interventions:: Therapist used open ended questions to elicit pt's current symptoms and stressors. Therapist worked with pt to create return to work plan to help manage mental health symptoms when returns to work on reduced schedule next week. Therapist provided psychoeducation about radical acceptance. Discussed applying radical acceptance in regards to pt's mother. Client Response:: Pt reported he is feeling slightly anxious about returning to work next week. Pt stated he feels a little better since problem solving last individual session about strategies to utilize during work. Pt reported when at work he will be more mindful of his thought patterns. Pt stated he now realizes the way he thinks about work can impact his mood throughout the day. Pt reported if his bosses are demanding too much from him then he will remind himself he is doing the best he can do. Pt stated prior to getting to work next week he will make sure to do a grounding technique to help reduce anxiety. Pt stated while at work he will also make sure to ground himself throughout his shift. Pt reported he is feeling more confident in his ability to return to work. Pt stated his biggest stressor is his mom being in town. Pt reported he has tried to set up a time to meet up with his mom, but she isn't able to find time to meet with him. Pt stated he continues to get disappointed by her. Pt connected with idea of radical acceptance in regards to his mother's behavior. Pt stated he recognizes his mom's behavior has not changed. Pt connected if he can radically accept that his mother is not going to change then his hopes won't be up. Pt stated he recognizes his mom continues to trauma trigger him and she hasn't shown any effort to show pt he she is trying to change. Risks/Concerns:: Pt denies current suicidal ideation, plan or intention to date. Progress Toward Goals/Plan:: Progress noted with pt reporting decreased anxiety about returning to work on a reduced schedule next week. Pt notes decreased depressive symptoms, no suicidal thoughts, and improved motivation to engage in activities. Pt continues to have anxiety due to his mom being in town. Pt seems to struggle with setting boundaries with her, which leads pt to constantly be disappointed with his mom's lack of follow through. Pt is recommended to cotninue IOP to maintain gains, improve daily functioning so can return to work, and prevent decompensation. Time Stopped:: 11:53
--- NOTE | 2019-03-28 09:03 | BH.SGPN.GN ---
Behaviors/Verbalizations/Mental Status: []Client alert and oriented, casually dressed and groomed. Eye contact good. Motor activity restless. Speech within normal limits. Affect constricted, mood euthymic, anxious. Thoughts linear, logical, no signs of hallucinations or delusions. Reviewed client?s symptom tracker, no risk for suicidal ideation, plan, or intent as of 03/28/19 Client Response/Progress/Benefit: []Client responded well to session, attentive and engaged in session. Client reports feeling ?content? today. Client shared ?I guess I?ve been more social? as client has been spending time with a friend and his sister. Client reported he is anxious about starting work tomorrow, but he has been practicing deep breathing and walking to help reduce his anxiety. Client receptive to feedback from peers on how to cope with anxiety at work. Appeared to benefit from reflecting on his reduced isolation and increased confidence in himself to manage anxiety at work. Will continue IOP to promote mood stability and decrease negative thinking. Narrative Note: []
--- NOTE | 2019-03-28 10:17 | BH.SGPN.GN ---
Behaviors/Verbalizations/Mental Status: [Client alert and oriented, casually dressed and groomed. Eye contact fair to good. Motor activity appropriate, though got up several times to use the restroom. Speech within normal limits. Affect congruent, mood anxious dysthymic. Thoughts linear, logical, no signs of hallucinations or delusions. ] Client Response/Progress/Benefit: [Client a semi-active participant AEB engagement in group activity and providing some input during discussion portion of session. Struggling with attention at times as pt got up and left the room on several occasion. Client worked with group to define resilience, sharing that for him it means ?how we respond or cope with a situation?. Client able to make connections between activity and barriers/supports to development of a resilient lifestyle. Shared that ?getting overwhelmed? by a situation can impact resilience. Client agreed with peers that one can learn to become more resilient throughout life. Client able to work with group to discuss benefits of resilience on mental health which included: increased self-confidence, increased ability to manage adversity, and increased ability to find different solutions to setbacks. Progress in willingness to work in small groups to identify benefits of the ten components to building resilience and report of improved ability to use positive self-talk when struggling with depressed mood. Recommended continued IOP tx to promote healthy change behaviors, improve boundaries and depression management, as well as prevent decompensation.] Narrative Note: []
--- NOTE | 2019-03-28 11:18 | BH.SGPN.GN ---
Behaviors/Verbalizations/Mental Status: []Client alert and oriented, casually dressed and groomed. Eye contact fair. Motor activity appropriate. Speech within normal limits. Affect congruent, mood euthymic, slightly anxious. Thoughts linear, logical, no signs of hallucinations or delusions. Client Response/Progress/Benefit: []Client engaged participant as evidenced by client providing input throughout discussion and listening attentively to peers. Client worked cooperatively with peers to identify how each resiliency component can help increase personal resiliency. Client reported he wants to work on the resiliency component of keeping things in perspective. Client stated he will work on keeping things in perspective by reminding himself at work that his supervisors sometimes expect too much of him and he needs to focus on performing at his best. Client appeared to benefit from identifying goal to improve personal resilience factors. Client to continue IOP to maintain gains, continue to challenge distorted thoughts and prevent decompensation. Narrative Note: []
--- NOTE | 2019-03-30 09:05 | BH.SGPN.GN ---
Behaviors/Verbalizations/Mental Status: []Client alert and oriented, casually dressed and groomed. Eye contact good. Motor activity appropriate. Speech within normal limits. Affect congruent, mood euthymic/anxious. Thoughts linear, logical, no signs of hallucinations or delusions. Reviewed client?s symptom tracker, no risk for suicidal ideation, plan, or intent as of 03/30/19 Client Response/Progress/Benefit: []Client responded well to session, attentive and participating in discussion. Client reports feeling nervous today as client has a job interview later this afternoon. Client shared although he is nervous, he thinks he would enjoy this job more than his current job. Client stated he has been doing well with returning to work at [employer] and shared that he has been using deep breathing and thought challenging to control his anxiety. Client reported his stressor today is that [employer] still has not changed his work schedule, but client reported he plans to give them a call again today. Appeared to benefit from reflecting on his application of coping skills which has helped client manage anxiety while at work. Will continue IOP tx to further decrease anxiety and improve mood stability. Narrative Note: []
--- NOTE | 2019-03-30 10:20 | BH.SGPN.GN ---
Behaviors/Verbalizations/Mental Status: [Client alert and oriented, casually dressed and groomed. Eye contact fair to good. Motor activity appropriate. Speech within normal limits. Affect congruent to topic being discussed, mood dysthymic. Thoughts linear, logical, no signs of hallucinations or delusions.] Client Response/Progress/Benefit: []Pt mostly active participant AEB pt providing some input during discussion and taking notes throughout. Pt able to connect with others, as well as provided insight on the negative impact of defining self by mental illness. Group identified social stigma can come from how the media, our thoughts, and upbringing portray mental illness. Pt shared that he has been hesitant to share his mental health struggles with others out of fear of judgement based on language he has heard surrounding mental health. Group identified media and society portray mental health as: dangerous, negative, unworthy, abnormal, and that it means something is wrong with you. Pt reported societal stigma made him feel he was different from others as he did not believe others also struggled with their mental health. Pt seemed to benefit from increased awareness of how societal and internal mental health stigma can impact functioning. Pt progressing with increased input in group. Pt to continue IOP level of care to continue use of healthy coping skills, reduce mental health sx severity , and prevent decompensation. Narrative Note: []
--- NOTE | 2019-03-30 11:20 | BH.SGPN.GN ---
Behaviors/Verbalizations/Mental Status: []Client alert and oriented, casually dressed and groomed. Eye contact fair. Motor activity restless. Speech within normal limits. Affect congruent to topic being discussed, mood euthymic. Thoughts linear, logical, no signs of hallucinations or delusions. Client Response/Progress/Benefit: []Client passive participant AEB pt providing limited input however appeared to actively listen to others throughout session. Engaged in activity about facts and statistics of mental illness. Group identified the benefits of addressing stigma which included: increased self-confidence, takes some of the power away from stigma, increases personal and social awareness, and increases validation. Group brainstormed strategies to combat social and perceived stigma which included: education others, no longer using negative labels about mental illness, being open about mental health, and don't reinforce stigma. Appeared to benefit from increasing awareness of strategies to combat stigma. Will continue IOP tx to increase consistent application of coping skills, successfully manage stress while at work, and prevent decompensation. Narrative Note: []
--- NOTE | 2019-03-30 11:53 | PCM.BH.PN_ITS ---
Progress Note Progress Note: History of Present Illness/Interim History: [Patient is a 23-year-old male who is seen in follow-up at the [facility]. I last saw the patient on March 02, 2019. At that time I increased his Lexapro from 10 mg to 20 mg p.o. daily. Patient feels he is doing much better. He feels he is really benefiting from the IOP program and is learning valuable skills to manage his stress. He has had no panic attacks since leaving the hospital. He returned to work yesterday part-time only and he feels he did well at work. He had no problems while working. His mood is much better and he denies any thoughts of . He has no suicidal ideation at all at this point in time. He got through the holidays well and he states that his marriage is doing well. He is also taking his vitamin D. He denies any suicidal ideation, homicidal ideation, hallucinations or delusions. He denies any significant anxiety and panic attacks.] Current Psychiatric Medications: [] Lexapro 20 mg p.o. daily (dose increased 3- 1/2 weeks ago); vitamin D2 50,000 IU p.o. weekly Mental Status Examination: [] Patient is a 23-year-old male who is casually dressed and groomed with good hygiene. He has no psychomotor agitation or retardation. He is cooperative and pleasant during the interview. His eye contact is good and his speech is normal rate and rhythm with no pressure. His mood is euthymic. His affect is full and consistent with mood. Thought process: Goal-directed and organized. Thought content: No evidence of suicidal ideation, homicidal ideation, hallucinations or delusions. No evidence of any passive thoughts of . Concentration is intact. Judgment is good. Insight is good. Impulsivity: Low. 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 He will continue on his current doses of medication. A refill prescription was sent in for his Lexapro 20 mg. He will follow-up with his outpatient psych and medical providers. He felt safe during the interview and if in any time he does not feel safe he will let us know or go to the emergency room. The risk, possible side effects, and complications of the medication were discussed with the patient and he understands and accepts these.
--- NOTE | 2019-04-01 09:05 | BH.SGPN.GN ---
Behaviors/Verbalizations/Mental Status: [] Eye contact is good. Motor activity is appropriate. Appearance is disheveled. Speech is Appropriate. Mood is depressed. Affect is flat. Thoughts are linear and logical. No evidence of psychosis. Reviewed daily check in sheet and no reports of suicidal ideations or intent. Client Response/Progress/Benefit: [] Pt participated at time during the group discussion. Emotion for today is anxious. Daily symptom tracker notes 1/5 for anxiety and 0s for the rest of the symptoms. Pt reports that yesterday was his 2nd day back to work. Identified a win as he was able to make it through the day despite physical pain and some additional stressors. Believes that he is managing his emotions well. Hopeful as he is looking for another job. Progress noted. Benefited from group support and encouragement. Will continue in IOP to prevent decompensation and transition back to full-time work. Narrative Note: []
--- NOTE | 2019-04-01 10:05 | BH.SGPN.GN ---
Behaviors/Verbalizations/Mental Status: []Client alert and oriented, casually dressed and groomed. Eye contact poor. Motor activity appropriate. Speech within normal limits. Affect constricted, mood euthymic. Thoughts linear, logical, no signs of hallucinations or delusions. Client Response/Progress/Benefit: []Client active participant as shown by client?s contribution to discussion. Client agreed with peers that self-care is important because ?it makes us feel better? which impacts one?s relationships and mental health. Client gave some examples of self-care including drawing and helped the group discuss benefits of self-care. Benefits included; improved relationships, improved patience, less stress, and increased self-worth. Client participated in the discussion of the common myths about self-care including self-care is selfish, always fun, too much effort and time, and not worth it. Client participated in the discussion and debunking of these myths. Group discussed how one must overcome negative thinking that prevents them from using self-care. Client seemed to benefit from increased awareness of the importance of self-care and challenging common myths that prevent clients from practicing self-care. Client showing progress as shown by client?s report of utilization of coping skills, but client can continue to reduce anxiety to improve daily functioning. Will continue IOP tx to promote use of healthy coping skills to further decrease anxiety. Narrative Note: []
--- NOTE | 2019-04-01 13:02 | BH.MDN_ITS ---
Multi-Disciplinary Note - Note 30-min Individual Time Started:: 11:40 Date: 04/01/19 Purpose of session/treatment goals addressed:: Purpose of session was to assess pt's current symptoms and stressors. Other topics included processing returning to work this week, reviewing healthy skills, discussing aftercare plans, and reviewing treatment progress. Eye Contact:: Good Motor Activity:: Appropriate Appearance:: Casual Speech:: Appropriate Mood:: Euthymic Affect:: Congruent Thoughts:: Linear, Logical, No evidence of hallucinations/delusions noted Staff Interventions:: Therapist utilized open ended questions to elicit pt's current symptoms. Therapist processed pt's return to work this week, eliciting what skills helped him manage symptoms. Therapist elicited pt's thoughts about treatment progress since starting IOP. Therapist discussed aftercare options with pt for after discharge from [facility]. Client Response:: Pt reported he was able to return to work two days this week. Pt shared there were times he was anxious or nervous during the work day but was able to use thought challenge and grounding tools to help him throughout day. Pt stated he also asked for help from a co-worker when he was feeling overwhelmed when short staffed. Pt reported he still isn't happy with his job, but feels better equiped to manage his stress while at work. pt notes treatment progress with improved mood, increased healthy coping skills, better able to manage mental health symptoms, no suicidal thoughts, increased happiness with life, and stable mood. Pt agreeable to call the providers provided to pt to establish appointments for aftercare prior to discharge from [facility]. Risks/Concerns:: Pt denies current suicidal ideation, plan or intention to date. Progress Toward Goals/Plan:: Progress noted with pt being able to successfully return back to work on a reduced schedule. Pt able to manage anxious symptoms while at work. Pt notes progress with improved mood, increased use of healthy coping, no suicidal thoughts, and feeling more equipped to manage stress. Pt recommended to continue IOP level of care to maintain gains and prevent decompensation. Time Stopped:: 12:00
--- NOTE | 2019-04-04 09:05 | BH.SGPN.GN ---
Behaviors/Verbalizations/Mental Status: []Client alert and oriented, casual dress, hygiene tended to. Eye contact fair. Motor activity appropriate. Speech within normal limits. Affect congruent, mood euthymic. Thoughts linear, logical, no signs of hallucinations or delusions. Reviewed client?s symptom tracker, no signs of suicidal ideation, plan, or intent as of today. Client Response/Progress/Benefit: []Patient responded well to session as evidenced by openly sharing thoughts and feelings and attentive to others. Pt stated over the weekend he hung out with a friend to watch a tv series together which he identifies as a mental health positive. Pt reported another mental health positive was spending time working on his [employer] over the weekend. Pt identified current stressor is having to go to work tomorrow and this weekend will have to return to working again. Pt stated working the weekends is the most stressful at his job because it is extremely busy. Progress noted with patient reporting mood stability and continued utilization of healthy skills. Pt to continue IOP level of care to maintain gains, continue use of healthy coping and prevent decompensation. Narrative Note: []
--- NOTE | 2019-04-04 11:21 | BH.SGPN.GN ---
Behaviors/Verbalizations/Mental Status: [Client alert and oriented, casually dressed and groomed. Eye contact fair to good. Motor activity appropriate. Speech within normal limits. Affect congruent, mood dysthymic. Thoughts linear, logical, no signs of hallucinations or delusions.] Client Response/Progress/Benefit: []Client receptive of session, engaged throughout AEB client actively listening during discussion and taking notes. Listened and processed activity with group and connected it to overcoming personal pitfalls in life. Client completed a worksheet where pt identified personal pitfalls impacting mental health progress. Identified pitfalls as: fear, loneliness, pain/health problems, anxiety, negative thoughts, doubt, and isolation. Client agreed that with awareness and use of healthy coping skills, it is possible to prevent or better manage pitfalls. Attentive during psychoeducation on strategies to overcome pitfalls. Client stated he will work on pitfall of negative thoughts by using affirmations. Benefited from identifying personal pitfalls and strategies to overcome these pitfalls, as well as support provided by group. Will continue IOP tx to reduce depression, promote healthy change behaviors, and prevent decompensation. Narrative Note: []
--- NOTE | 2019-04-06 09:04 | BH.SGPN.GN ---
Behaviors/Verbalizations/Mental Status: [Eye contact is good. Motor activity is appropriate. Appearance is casual, grooming appropriate. Speech is Appropriate rate and soft tone. Mood is euthymic. Affect is congruent. Thoughts are linear and logical. No evidence of psychosis. Reviewed daily check in sheet and pt denies any active SI, plan, or intent as of this date. ] Client Response/Progress/Benefit: []Pt responded well to session, engaged throughout and open to processing with the group. Pt indicated current emotion as ?content? and discussed that this is due to feeling he has been able to consistently manage his emotions and mental health sx the past few days. Shared that he does not currently have a stressor, though is still recovering from being sick over the weekend. Identified current mental health wins as being able to still get to group this morning despite being sick on the previous date. Additional win identified as continuing to make progress with consistently achieving his goal of drawing daily for self-care. Appeared to benefit from reflecting upon the skills he applied to successfully maintain gains made, as well as the support of the group environment. Pt progress noted per pt report of improved symptom management and application of healthy skills. Pt recommended continued IOP tx to prevent decompensation, promote ongoing application of healthy coping skills, and further reduce mental health sx severity. Narrative Note: []
--- NOTE | 2019-04-06 10:20 | BH.SGPN.GN ---
Behaviors/Verbalizations/Mental Status: []Client alert and oriented, casually dressed and groomed. Eye contact good. Motor activity appropriate. Speech within normal limits. Affect congruent, mood euthymic. Thoughts linear, logical, no signs of hallucinations or delusions. Client Response/Progress/Benefit: []Client responded well to session, listening attentively and providing examples. Participated in the group discussion to define and identify differences between internal and external conflict. Client shared coming to IOP was an internal conflict, but ?I knew I had a problem and needed help.? Client stated internal conflict can occur because of negative thoughts. Group reported the benefits of addressing conflict included personal growth, stress relief, preventing further consequences, and better relationships. Group identified and discussed consequences of not addressing conflict in healthy ways which included: resentment, damaged relationships, increased mental health symptoms, and not getting one?s needs met. Participating during psychoeducation on different conflict styles such as avoiding, accommodating, competing, and collaborative. Benefited as client was able to identify and define conflict as well as increase awareness of how conflict styles impact mental health. Progress noted as shown by client?s ability to return to work. Will continue IOP tx to promote use of healthy coping skills and further decrease intensity and duration of symptoms. Narrative Note: []
--- NOTE | 2019-04-08 10:11 | BH.SGPN.GN ---
Behaviors/Verbalizations/Mental Status: [Client alert and oriented, casually dressed and appropriately groomed. Eye contact fair to good. Motor activity appropriate. Speech within normal limits. Affect congruent, mood dysthymic. Thoughts linear, logical, no signs of hallucinations or delusions.] Client Response/Progress/Benefit: []Client was an active participant in group activity and provided input to discussion. Drawing throughout. Client able to connect with the topic of obstacles and solutions and worked with group to identify common internal and external barriers that keep people stuck. Pt identified isolating, negative self-talk, and low motivation as potential internal barriers that could prevent progress towards desired reality. Client shared his current reality as ?climbing a mountain with my past demons behind me trying to reach back out to pull me back down?. Client shared a realistic, desired reality would be feeling more capable of being able to use his skills in order to maintain progress and keep past demons behind him. Benefited from group as with assistance he was able to identify current mental health state and barriers that are impacting progress. Will continue with outpatient tx as pt is to discharge from IOP tx given gains made. Narrative Note: []
--- NOTE | 2019-04-08 11:15 | BH.SGPN.GN ---
Behaviors/Verbalizations/Mental Status: []Client alert and oriented, casual in appearance. Eye contact good. Motor activity appropriate. Speech within normal limits. Affect congruent, mood euthymic. Thoughts linear, logical, no signs of hallucinations or delusions. Client Response/Progress/Benefit: []Client was an active participant in group discussion and activity. Client stated he is comfortable with his current reality because feels like he is moving forward in life. Pt able to identify not using healthy skills, negative thinking, lack of communication with supports, and lack of motivation as obstacles that could negatively impact client's progress. Client identified challenging negative thoughts as a way he is helping himself move forward in life. Active during activity and providing ideas on how to cope with internal barriers. Client along with peers identified various obstacles during the activity and developed strategies to overcome those obstacles to wellness and desired reality. Client selected wanting to work on the barrier of negative thoughts by continuing to use opposite action and challenging thoughts. Benefited from group by identifying obstacles and solutions to maintain current reality. Client has made significant treatment progress and will discharge from [facility] today. Narrative Note: []
--- NOTE | 2019-04-08 14:54 | BH.AFTERPLAN ---
Aftercare Plan - Medications Home Medications: Home Medications Ergocalciferol (Vitamin D2) [Vitamin D2] 50,000 unit PO QWEEK 90 Days #14 cap 03/09/19 Escitalopram Oxalate [Lexapro] 20 mg PO DAILY 30 Days #30 tab 03/30/19
--- NOTE | 2019-04-08 15:53 | BH.MDN_ITS ---
Multi-Disciplinary Note - Note 30-min Individual Time Started:: 09:30 Date: 04/08/19 Purpose of session/treatment goals addressed:: Purpose of session was to identify pt's treatment progress, strategies to help pt maintain progress, and solidify aftercare plans. Eye Contact:: Good Motor Activity:: Appropriate Appearance:: Casual Speech:: Appropriate Mood:: Euthymic Affect:: Congruent Thoughts:: Linear, Logical, No evidence of hallucinations/delusions noted Staff Interventions:: Therapist used open ended questions to elicit pt's thoughts about treatment progress since starting IOP. Therapist collaborated with pt to identify strateiges and skills that can help pt maintain treatment progress. Therapist solidified aftercare plans with pt post discharge from IOP. Provided support by using active listening. Client Response:: Pt stated since starting IOP he has noticed improved mood. Pt shared he hasn't had any suicidal thoughts since starting IOP and has improved outlook on life. Pt stated he is better at managing his anxiety, especially while at work. Pt reported he has reengaged in activities he used to find enjoyable like drawing and writing. Pt shared overall decrease in isolative behaviors and feeling more stable. Pt identified strategies that can help him stay successful include: opposite action, challenging anxious thoughts, breathing exercises, being social, engaging in hobbies, and continued open communication with supports. Pt stated for follow up he will go to [facility] for both counseling and psychiatry. Risks/Concerns:: Pt denies current suicidal ideation, plan or intention to date. Progress Toward Goals/Plan:: Progress noted with pt stating improved mood, increased use of coping skills, successful return to work, and improved daily functioning. Pt is to follow up for aftercare with counseling and psychiatry at [facility]. Time Stopped:: 09:55
--- NOTE | 2019-04-08 16:54 | BH.DS ---
Discharge Summary - Demographics Date of Admission:: 03/02/19 Discharge Date: 04/08/19 - Treatment Discharge Handout: Complete Discharge Handout with client on aftercare options and continuity of care.
== END 2019-04-08 13:00 | disposition home or self-care (01) ==
LOC: BHIOP 09:00
PROVIDERS: Family Provider Family Medicine; PCP Family Medicine; Referring Provider Psychiatry & Neurology Psychiatry; Visit Provider Psychiatry & Neurology Psychiatry
DX: F33.2 Major depressive disorder, recurrent severe without psychotic features (principal); F41.1 Generalized anxiety disorder; F98.8 Other specified behavioral and emotional disorders with onset usually occurring in childhood and adolescence
CPT/HCPCS: 99213; H0035; H2012; H2020; 90832

== ENCOUNTER 2019-04-23 13:45 | Emergency (ER) | payer MEDICAID, SELFPAY ==
[2019-04-23 13:46] VITALS: BP 125/64; PULSE 77; RESP 16; TEMP 37.2; O2SAT 97; BMI 23.3
--- NOTE | 2019-04-23 14:32 | ED.DCSUM_ITS ---
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 There was no additional stressors. He has been seen by counselors in the past for the above he is never actually attempted suicide he is taking medications, he denies any other complaints his is with him at the bedside Past Medical History - Allergies and Home Meds Allergies/Adverse Reactions: Allergies pseudoephedrine HCl [From Sudafed] Allergy (Verified 04/23/19 13:50) Unknown RUNDIC Allergy (Uncoded 04/23/19 13:50) Unknown Primary Care Physician: Tyler Resendez MD [Primary Care Provider] - Past Medical History: - - Depression and prior suicidal ideation Smoking Status: Never smoker Review of Systems General: Denies: Chills, Fever, Sweats Eyes: Denies: Visual changes - bilaterally, Diplopia ENT: Denies: Rhinorrhea, Sore throat Cardiovascular: Denies: Chest pain, Palpitations Respiratory: Denies: Dyspnea, Cough, Dyspnea on exertion Gastrointestinal: Denies: Abdominal pain, Nausea, Vomiting, Diarrhea, Melena, Hematochezia Genitourinary: Denies: Dysuria, Hematuria, Frequency Musculoskeletal: Denies: Back pain, Extremity Pain Skin: Denies: Rash, Wounds Neurological: Denies: Headache, Weakness, Numbness Psych: Reports: Suicidal thoughts Physical Exam Vital Signs/Narrative: Vital Signs Temp Pulse Resp BP Pulse Ox 04/23/19 13:46 98.9 F 77 16 125/64 H 97 General: Well nourished, Well developed, No Acute Distress Head: Normocephalic, Atraumatic Eyes: Perrl, EOMI ENT: Moist mucous membranes, No rhinorrhea Neck: Supple, Nontender Cardiovascular: Regular rate, Regular rhythm, No murmurs Respiratory: No distress, CTA bilaterally, Chest nontender Abdomen: Soft, Nontender, Nondistended, Normal bowel sounds Back: Nontender, Normal Inspection Extremities: Nontender, No edema Skin: Normal color, No rash Neurological: Alert, Oriented x3, Cranial nerves II-XII grossly intact, Normal Strength, Normal Sensation Psychological: Normal affect, Normal Mood, Depressed Diagnostic/Tx/Re-eval - Medical Decision Making Given all of the above given his history his complaints we have taped in the mental health screening evaluation set of labs is will be checked, we have asked the mental health acute care team to see him for further management and disposition Disposition per mental health services Impression final Depression, suicidal ideation ED Disposition - Plan for ED Patient: Diagnosis: Suicidal ideation Instructions: Depression, SUICIDAL, 72hr HOLD Referrals: Tyler Resendez MD [Primary Care Provider] -
[2019-04-23 14:40] LABS: Absolute Lymphocyte Count 1.72 X10^3/uL (0.83-4.51); Absolute Neutrophil Count 2.9 X10^3/uL (2.0-7.7); Basophil# 0.03 X10^3/uL; Basophil% 0.6 % (0-1); Eosinophil# 0.26 X10^3/uL; Hematocrit 43.4 % (40-54); Hemoglobin 14.7 g/dL (13.0-16.5); Lymphocyte # 1.72 X10^3/ul (4.0); Lymphocyte % 32.8 % (19-41); Mean Corp Hgb Conc 33.9 g/dL (32-36); Mean Corpuscular Hgb 27.7 pg (27.0-32.0); Mean Corpuscular Volume 81.9 fL (80-94); Mean Platelet Vol. 10.2 fl (6.2-12.0); Monocyte# 0.31 X10^3/uL; Monocyte% 5.9 % (0-10); NRBC Flagged by Analyzer 0 % (0-5); Neutrophil # 2.91 X10^3/uL (2.7-7.7); Neutrophil % 55.5 % (47-70); Platelet Count 162 K/mm3 (150-450); RBC Distribution Width CV 11.8 % (11.6-14.6); RBC Distribution Width SD 35.3 fl (35.1-43.9); White Blood Count 5.2 K/mm3 (4.4-11.0)
[2019-04-23 14:49] LABS: Amphetamine Urine VISTA NEGATIVE (<1000 ng/mL); Barbiturate Urine VISTA NEGATIVE (< 200 ng/mL); Benzodiazepine Urine VISTA NEGATIVE (< 200 ng/mL); Cocaine Urine VISTA NEGATIVE (< 300 ng/mL); Ecstacy Urine VISTA NEGATIVE (< 500 ng/mL); Methadone Urine VISTA NEGATIVE (< 300 ng/mL); PCP Urine VISTA NEGATIVE (< 25 ng/mL); THC Urine VISTA NEGATIVE (< 50 ng/mL); Vista UDS pH Range 7
[2019-04-23 14:56] LABS: Anion Gap 2 (5-15); BUN 14 mg/dL (7-18); Calcium,Total 9.1 mg/dL (8.5-10.1); Chloride 107 mmol/L (98-107); EST Glomerular Filtration Rate 97 mL/min (>60); Est Glom Filt Rate - Afr Amer 118 mL/min (>60); Estimated Creatinine Clearance 113.91 ml/min; Glucose 85 mg/dL (74-106); Potassium 3.9 mmol/L (3.5-5.1); Sodium Level 140 mmol/L (136-145)
[2019-04-23 15:20] LABS: Alcohol, Blood (Medical)-Serum < 3.0 mg/dL
[2019-04-23 15:21] VITALS: RESP 17
--- NOTE | 2019-04-23 15:51 | ED.DEP ---
ED Disposition - Plan for ED Patient: Diagnosis: Suicidal ideation Instructions: Depression, SUICIDAL, 72hr HOLD Referrals: Tyler Resendez MD [Primary Care Provider] - Additional Instructions: Return for change in symptoms follow-up with your outpatient providers for the depression and the intermittent suicidal thoughts return per safety plan instructions
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
[2019-04-23 16:32] VITALS: BP 125/78; PULSE 81; RESP 16; O2SAT 98
--- NOTE | 2019-04-25 20:00 | CM.ED ---
SOCIAL WORK FOLLOW UP FOLLOW UP PHONE CALL MADE TO PATIENT. PATIENT REPORTS IS DOING OK SINCE ED VISIT. PATIENT STATES PLANS TO ATTEND COUNSELING APPOINTMENT ON THURSDAY. MAY SANCHEZ, MANAGER INTEL.
== END 2019-04-23 16:34 | disposition home or self-care (01) ==
LOC: ED 15:05
PROVIDERS: Emergency Provider Emergency Medicine; PCP Family Medicine
DX: R45.851 Suicidal ideations (principal); F32.9 Major depressive disorder, single episode, unspecified
CPT/HCPCS: 80048; 80307; 80320; 85025; 99285; G0480

== ENCOUNTER → 2019-05-24 09:11 | Outpatient (CLI) | payer MEDICAID, SELFPAY ==
[2019-04-27 08:53] VITALS: BMI 21.6
--- NOTE | 2019-05-25 08:20 | PCM.TILTTABL ---
- Summary Pre Test Resting HR: 73 Pre Test Resting BP: 113/63 Minimum Test HR: 58 Maximum Test HR: 120 Minimum Test BP: 0/0 Maximum Test BP: 118/73 Reason for Test Termination: presyncope Physician Tilt Table Report - Patient's Physicians Primary Care Physician: Tyler Resendez Indications/Diagnosis: Presyncopal episodes Procedure Comments: The patient was brought to the noninvasive lab in the thanks nonsedated state. The patient was initially placed on the tilt table and vitals obtained. Resting heart rate was 73 bpm blood pressure was 113/63 mmHg. The patient was then tilted to the 70 degree head upright tilt position. The maximum heart rate was 118 bpm with a blood pressure 120/68 mmHg no symptoms were noted. The patient was then laid down flat given sublingual nitroglycerin and the procedure repeated. The patient apparently dropped his heart rate to 59 bpm with no blood pressure recorded patient was noted to be pale and he became clammy but not unresponsive. He was then laid back down and his blood pressure recovered. EKG did not demonstrate any significant changes other than bradycardia. Summary: The above result is suggestive of a likely vasovagal syncopal episode.
[2019-05-25 08:24] VITALS: BP 0/0; BP 113/63; BP 118/73
== END ==
PROVIDERS: PCP Family Medicine; Referring Provider Internal Medicine Cardiovascular Disease; Visit Provider Internal Medicine Cardiovascular Disease
DX: R55 Syncope and collapse (principal)
CPT/HCPCS: 93660; J7040; A4216

== ENCOUNTER 2019-07-07 09:07 | Emergency (ER) | payer MEDICAID, SELFPAY ==
[2019-04-27 08:53] VITALS: BMI 21.6
[2019-07-07 09:09] VITALS: BP 133/67; PULSE 98; RESP 17; TEMP 36.9; O2SAT 98; BMI 21.7
[2019-07-07 09:18] VITALS: BP 133/67; PULSE 98; RESP 17; TEMP 36.9; O2SAT 98
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
[2019-07-07 09:38] LABS: Bacteria 0 SEEN /hpf (None Seen); Mucous, Urine 0 SEEN /hpf (<or=2+); Red Blood Cells-Urine 0 SEEN /hpf (0-5); Squamous Epithelial Cells - UA 0 SEEN /hpf (0-5); White Blood Cells 0 SEEN /hpf (0-5)
[2019-07-07 09:41] LABS: Color, Urine Yellow (Yellow); Glucose, Dipstick Normal (Normal); Ketone-Dipstick Negative (Negative); Leukocyte Esterase-Dipstick Negative /ul (Negative); Nitrite-Dipstick Negative (Negative); Occult Blood-Urine Negative /ul (Negative); Protein-Dipstick Negative (Negative); Urine Bilirubin Dipstick Negative (Negative); Urine Clarity Clear (Clear); Urine Urobilinogen Normal (Normal); Urine pH 6.5 (5.0 - 8.0)
--- NOTE | 2019-07-07 10:02 | ED.DEP ---
ED Disposition - Plan for ED Patient: Disposition: Home or Assisted Living Referrals: Andrey Lee MD [STAFF PHYSICIAN] - 1 Week if not improving Additional Instructions: You are not retaining urine you are able to empty your bladder. The bladder scan was normal. Your urinalysis is clean. The symptoms should resolve if not improving follow-up with the urologist Dr. Randal Lee.
[2019-07-07 10:15] LABS: Bedside Glucose 96 mg/dL (70-110)
== END 2019-07-07 10:10 | disposition home or self-care (01) ==
PROVIDERS: Emergency Provider Emergency Medicine; PCP Family Medicine
DX: R35.0 Frequency of micturition (principal); F41.9 Anxiety disorder, unspecified; F32.9 Major depressive disorder, single episode, unspecified
CPT/HCPCS: 81001; 82962; 99282

== ENCOUNTER 2023-04-04 17:08 | Emergency (ER) | payer MEDICAID, SELFPAY ==
[2023-04-04 17:10] VITALS: BP 130/84; PULSE 90; RESP 15; TEMP 36.4; O2SAT 98; BMI 25.7
--- NOTE | 2023-04-04 17:41 | US_ITS ---
STUDY: ABDOMINAL ULTRASOUND - RIGHT UPPER QUADRANT REASON FOR VISIT: Male, 27 years old PAIN TECHNIQUE: Ultrasound evaluation of the right upper quadrant was performed with real-time and static haile-scale imaging. TECHNICAL QUALITY: Adequate. COMPARISON: None. FINDINGS: Liver: The liver measures 16.7 cm. There is increased echogenicity consistent with fatty infiltration. The bile ducts are within normal limits. There is hepatic color flow. The direction of portal flow is hepatopetal. There is no demonstrated mass lesion. Gallbladder: Normal distended gallbladder. The gallbladder wall measures 2 mm. There is a negative sonographic White''s sign. There is no pericholecystic fluid. There are no gallstones. Common Bile Duct (C.B.D.): The common bile duct measures 3 mm. Pancreas: Normal size of the head, body and tail of the pancreas. There is normal echogenicity of the pancreas. There is no demonstrated pancreatic mass or cyst. Right Kidney: Normal size of the right kidney. The right kidney measures 10.9 cm. Normal renal cortex. The right cortex measures 1.7 cm. There is no demonstrated renal mass or cyst. There is no right hydronephrosis. US/Gallbladder IMPRESSION: Fatty infiltration of liver. Electronically Signed: William Wright MD at 19:18 EST ,
--- NOTE | 2023-04-04 17:42 | EX.ED.DYSGE1 ---
HPI History of Present Illness Chief Complaint: Confusion Informant: patient Onset/Context/Timing Onset: Days Context: Sudden Onset Timing: Intermittent and Lasts (Few seconds) Quality: Stabbing Location: Epigastric and right upper quadrant Worsened by: Leaning forward Relieved by: Nothing Narrative Narrative: Patient presents with abdominal pain, dizziness, nausea, and vomiting that has been getting worse over the past few days. Patient states his pain is over the epigastric and right upper quadrant areas. Patient states it radiates into his back. Patient states it is intermittent. Patient states it only last for a few seconds. Patient describes his pain as stabbing. Patient states it is worse when he leans forward. Patient states he has also had some intermittent mild confusion. Patient admits to a headache. Patient also admits to some urinary frequency. [facility] Medical History (Updated 04/04/23 @ 19:[address] Jose Mata DO) Attention deficit disorder Generalized anxiety disorder GERD (gastroesophageal reflux disease) Major depressive disorder, recurrent severe without psychotic features Migraine with aura Near syncope Osteochondrosis Panic attacks POTS (postural orthostatic tachycardia syndrome) Seizures Syncope Unspecified asthma, uncomplicated Home Medications buspirone 15 mg tablet 15 mg PO TID 11/14/20 [History Last Taken Unknown] albuterol sulfate 90 mcg/actuation aerosol inhaler (Ventolin HFA) 2 puff inhalation Q6H PRN bronchospasm 11/19/21 [History Last Taken Unknown] aripiprazole 2 mg tablet 2 mg PO DAILY 11/19/21 [History Last Taken Unknown] fluoxetine 20 mg capsule 20 mg PO DAILY 11/19/21 [History Last Taken Unknown] midodrine 5 mg tablet 5 mg PO TID 11/19/21 [History Last Taken Unknown] Allergy/AdvReac Type Severity Reaction Status Date / Time pseudoephedrine HCl Allergy PT UNSURE Verified 04/04/23 17:14 [From [facility] OF REACTION RUNDIC Allergy PT UNSURE Uncoded 11/19/21 10:02 OF REACTION Family History Father Asthma Surgical History History of tonsillectomy and adenoidectomy Social History Smoking Status: Never smoker alcohol intake: never substance use type: does not use caffeine: Yes Type: coffee Number of servings: 1 ROS ROS ED Constitutional Constitutional ED: Denies chills or fever(s) Eyes Eyes: Denies blurry vision or change in vision ENT ENT ED: Reports rhinorrhea; Denies sore throat Cardiovascular Cardiovascular: Denies chest pain or palpitations Respiratory/Chest Respiratory/Chest: Reports dyspnea; Denies cough Gastrointestinal Gastrointestinal: Reports abdominal pain, diarrhea, nausea and vomiting; Denies melena Genitourinary Genitourinary ED: Reports urinary frequency; Denies dysuria or hematuria Musculoskeletal Musculoskeletal: Reports back pain; Denies neck pain Integumentary Denies abscess or rash Neurologic Neurologic: Reports headache(s); Denies weakness Allergic/Immunologic Allergic/Immunologic ED: Denies mouth swelling or urticaria EXAM Physical Exam Const Vital Signs: 04/04/23 17:10 Temperature 97.5 F L Temperature Source Temporal Pulse Rate 90 Respiratory Rate 15 Blood Pressure 130/84 H Blood Pressure Mean 99 Pulse Ox 98 Oxygen Delivery Method Room Air Positive well nourished and well developed General Appearance ED: well developed and NAD; Negative for pallor HEENT Reports moist mucous membranes Eyes PERRL and EOMs intact bilaterally General Eye ED: Negative for scleral icterus Neck supple and no JVD Resp normal respiratory effort and clear to auscultation bilaterally Cardio regular rate and regular rhythm GI non-distended Palpation: soft and tender epigastric, RUQ and White's sign; Negative for guarding or rebound tenderness present Neuro oriented x3, CN's II-XII intact bilaterally and no sensory deficits noted Sensorium / Orientation: alert Motor Exam: strength 5/5 throughout Psych mental status grossly normal Skin no rashes or lesions noted General Skin Exam: Negative for jaundice or pallor MDM MDM MDM Narrative Medical decision making narrative: Differential diagnosis includes cholecystitis, cholelithiasis, peptic ulcer disease, duodenal ulcer, pancreatitis, bowel obstruction, perforation, hepatic encephalopathy, pneumonia, and urinary tract infection. Right upper quadrant ultrasound will be obtained to assess for acute cholecystitis and cholelithiasis. Chest x-ray will be obtained to assess for pneumonia. CBC will be obtained to assess for leukocytosis and anemia. Comprehensive metabolic profile will be obtained to assess for hepatic function, renal function, and electrolyte abnormality. Lipase will be obtained to assess for pancreatitis. Ammonia level will be obtained to assess for hepatic encephalopathy. Urinalysis will be obtained to assess for urinary tract infection and hematuria. Lab Data Attestation: I reviewed the patient's lab results. Lab results narrative: CBC was reviewed and was within normal limits. Comprehensive metabolic profile was reviewed and was essentially within normal limits. Total bilirubin was slightly elevated at 1.2 and ALT was only slightly elevated at 64. Lipase was reviewed and was normal at 31. Urinalysis was reviewed. There is no evidence of urinary tract infection or hematuria. Serum ammonia level was reviewed and was normal at 27. Labs: Laboratory Results - last 24 hr 04/04/23 17:52 WBC 5.9 RBC 5.62 Hgb 16.0 Hct 45.5 MCV 81.0 MCH 28.5 MCHC 35.2 RDW Std Deviation 33.4 L RDW Coeff of Radha 11.4 L Plt Count 199 MPV 10.7 Immature Gran % (Auto) 0.200 Neut % (Auto) 62.8 Lymph % (Auto) 26.4 Young % (Auto) 6.2 Eos % (Auto) 3.7 Baso % (Auto) 0.7 Absolute Neuts (auto) 3.7 Absolute Lymphs (auto) 1.57 Nucleated RBC % 0 Sodium 141 Potassium 3.8 Chloride 106 Carbon Dioxide 29.0 Anion Gap 6 BUN 14 Creatinine 1.19 Estim Creat Clear Calc 101.44 Est GFR (MDRD) Af Amer 93 Est GFR (MDRD) Non-Af 77 BUN/Creatinine Ratio 11.8 Glucose 103 Calcium 9.2 Total Bilirubin 1.20 H AST 21 ALT 64 H Alkaline Phosphatase 56 Ammonia 27.0 Total Protein 7.5 Albumin 4.2 Globulin 3.3 Albumin/Globulin Ratio 1.3 Lipase 31 Urine Color Yellow Urine Clarity Clear Urine pH 6.0 Ur Specific [place] 1.020 Urine Protein 15 H Urine Glucose (UA) Normal Urine Ketones Negative Urine Occult Blood Negative Urine Nitrite Negative Urine Bilirubin Negative Urine Urobilinogen Normal Ur Leukocyte Esterase Negative Urine RBC 0 SEEN Urine WBC 0 SEEN Ur Squamous Epith Cells 0 SEEN Urine Bacteria 0 SEEN Urine Mucus 0 SEEN Radiography Diagnostic Testing: Clinical Impression(s) from Imaging Studies Gallbladder Ultrasound 04/04/23 17:41 IMPRESSION: Fatty infiltration of liver. Electronically Signed: William Wright MD at 19:18 EST , Chest X-Ray 04/04/23 18:50 IMPRESSION: Normal x-ray examination of the chest. Electronically Signed: William Wright MD at 19:16 EST Reading Location ID and State: [facility] / [place] Tel , Service support , [place] and lateral chest x-ray was obtained. There are 2 views. On my independent interpretation, lung bashir are clear. There is normal cardiac silhouette. Bony thorax is normal. There is no acute process noted. Radiologist also interpreted the x-ray and agrees. Gallbladder ultrasound was obtained. There is fatty infiltration of the liver. There is no evidence of cholecystitis or cholelithiasis. This was interpreted by the radiologist and was also independently reviewed by myself. Treatment and Re-Evaluation :: Patient was advised of his findings. Patient was instructed to eat a bland diet. Patient was instructed to avoid fried foods, fatty foods, greasy foods. Patient was instructed to follow-up with his primary care physician in 5 to 7 days. Patient understood and was agreeable with the plan. All questions were answered. Discharge Plan Triage Chief Complaint: Confusion ED Provider: Jose Mata Dx/Rx/DC Orders Clinical Impression: Abdominal pain, right upper quadrant Instructions: ED Abdominal Pain Unkn Cause Male... Prescriptions: No Action buspirone 15 mg tablet 15 mg PO TID fluoxetine 20 mg capsule 20 mg PO DAILY Patient Comments: TAKE 1 CAPSULE BY MOUTH ONCE DAILY midodrine 5 mg tablet 5 mg PO TID aripiprazole 2 mg tablet 2 mg PO DAILY albuterol sulfate [Ventolin HFA] 90 mcg/actuation HFA aerosol inhaler 2 puff inhalation Q6H PRN (Reason: bronchospasm) Patient Comments: INHALE 2 PUFFS BY MOUTH EVERY 6 HOURS NEEDED DIRECTED Primary Care Provider: Tyler Resendez Referrals: Tyler Resendez MD [Primary Care Provider] - 5-7 Days Disposition Disposition: Home, Self Care
--- OUTSIDE RECORDS SUMMARY | 2023-04-04 17:46 | XMS RPT_ITS | CCD ---
Author Name Unknown Address [address] [place] [address] Organization [facility] Care Team Providers Care Magazine Repairer Name Role Phone Yosef Kinsey Unavailable Unavailable Yosef Israel MD Primary Care Provider Yosef Israel MD Primary Care Provider Yosef Israel MD Primary Care Provider Yosef Israel MD Primary Care Provider [phone] YOSEF ISRAEL Primary Care Unavailable JULIO HOGAN Referring Unavailable NICHELLE WARD Attending Unava ilable BALTA MAURO Attending Unavailable YOSEF ISRAEL Primary Care Unavailable YOSEF ISRAEL Primary Care Unavailable AME PÉREZ Attending Unavailable YOSEF ISRAEL Primary Care Unavailable AME PÉREZ Attending Unavailable YOSEF ISRAEL Primary Care Unavailable AME PÉREZ Attending Unavailable YOSEF ISRAEL Primary Care Unavailable AME PÉREZ Referring Unavailable YOSEF ISRAEL Primary Care Unavailable AME PÉREZ Attending Unavailable YOSEF ISRAEL Primary Care Unavailable YOSEF ISRAEL Referring Unavailable YOSEF ISRAEL Primary Care Unavailable AME PÉREZ Attending Unavailable YOSEF ISRAEL Primary Care Unavailable YOSEF ISRAEL Referring Unavailable VALERIA GORDON Referring Unavailable JULIO HOGAN Attending Unavailable YOSEF ISRAEL Primary Care Unavailable BALTA MAURO Referring Unavailable YOSEF ISRAEL Primary Care Unavailable Allergies Allergy Classification Reported Allergen(s) Allergy Type Date of Onset Reaction(s) Facility (20 sources) Brompheniramine / Pseudoephedrine; Translations: [BROMPHENIRAMINE-PS EUDOEPHEDRIN] Drug Allergy 04-07-19 06 [facility] (20 sources) Environmental: cats. dogs, horses [Other] Propensity to adverse reactions 01-14-20 08 Cough, Shortness of Breath [facility] (20 sources) Sympathomimetic Agents; Translations: [SYMPATHOMIMETIC AGENTS] Propensity to adverse reactions 03-01-20 02 [facility] Work Phone: (2 sources) OTHER; Translations: [OTHER] Propensity to adverse reactions (disorder) 01-14-20 08 [facility] Other [place] Medications Current Medications Medication Drug Class(es) Dates Sig (Normalized) Sig (Original) amoxicillin 875 mg / clavulanate 125 mg oral tablet (1 source) Penicillin-class Antibacterial Start: 02-06-2022 End: 02-11-2022 take 1 tablet by mouth twice daily amoxicillin-clav ulanic acid (AUGMENTIN) 875-125 mg per tablet Take 1 tablet by mouth twice daily for 5 days. 10 tablet 0 02/06/2022 02/11/2022 Active Completed/Discontinued Medications Medication Drug Class(es) Dates Sig (Normalized) Sig (Original) [id number] 200 actuat albuterol 0.09 mg/actuat metered dose inhaler (20 sources) beta2-Adrenergic Agonist Start: 07-11-2019 End: 11-05-2021 take 2 puff(s) by inhalation every six hours as needed albuterol HFA (PROVENTIL HFA, VENTOLIN HFA) 90 mcg/actuation inhaler Inhale 2 Puffs as instructed every 6 hours as needed. 1 Inhaler 5 11/05/2021 Active Problems Active Problems Problem Classification Problem Date Documented Da te Episodic/Chronic Abdominal hernia (2 sources) Hiatal hernia; Translations: [Diaphragmatic hernia without obstruction or gangrene] Onset: 4 Episodic Abdominal pain (1 source) Epigastric pain; Translations: [Epigastric pain] Onset: 4 Episodic Anxiety disorders (20 sources) Mixed anxiety and depressive disorder; Translations: [Anxiety disorder, unspecified] Onset: 5 Chronic Attention-deficit, conduct, and disruptive behavior disorders (20 sources) Attention-deficit hyperactivity disorder, unspecified type; Translations: [Attention deficit disorder with hyperactivity] Onset: 8 12-28-2007 Chronic Cardiac dysrhythmias (20 sources) Postural orthostatic tachycardia syndrome ; Translations: [Other specified cardiac arrhythmias] Onset: 0 06-24-2019 Chronic Esophageal disorders (20 sources) Gastroesophageal reflux disease; Translations: [Gastro-esophageal reflux disease without esophagitis] Onset: 4 01-04-2004 Chronic Esophageal disorders (2 sources) Esophageal disorders; Translations: [Gastroesophageal reflux disease with esophagitis, unspecified whether hemorrhage] Onset: 4 Gastritis and duodenitis (2 sources) Chronic superficial gastritis; Translations: [Chronic superficial gastritis without bleeding] Onset: 3 Chronic Headache; including migraine (20 sources) Migraine without aura; Translations: [Migraine without aura, not intractable, without status migrainosus] Onset: 8 01-26-2015 Chronic Immunizations and screening for infectious disease (2 sources) Contact with or exposure to other viral diseases; Translations: [Close exposure to COVID-19 virus] Episodic Intestinal infection (1 source) Viral gastroenteritis; Translations: [Viral intestinal infection, unspecified] Episodic Mood disorders (10 sources) Recurrent major depressive episodes, moderate ; Translations: [Major depressive disorder, recurrent, moderate] Onset: 3 Chronic Nausea and vomiting (4 sources) Nausea and vomiting; Translations: [Nausea with vomiting, unspecified] Onset: 3 Episodic Nutritional deficiencies (2 sources) Vitamin D deficiency; Translations: [Vitamin D deficiency, unspecified] Chronic Other bone disease and musculoskeletal deformities (20 sources) Juvenile osteochondritis; 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] Onset: 9 06-15-2008 Chronic Other diseases of kidney and ureters (2 sources) Renal impairment; Translations: [Disorder of kidney and ureter, unspecified] Episodic Other gastrointestinal disorders (4 sources) Diarrhea; Translations: [Diarrhea, unspecified] Episodic Other gastrointestinal disorders (2 sources) Altered bowel function; Translations: [Change in bowel habit] Episodic Other gastrointestinal disorders (1 source) Change in bowel habit; Translations: [Change in bowel habits] Onset: 3 Episodic Other gastrointestinal disorders (1 source) Diarrhea, unspecified; Translations: [Diarrhea, unspecified type] Onset: Episodic Other hereditary and degenerative nervous system conditions (20 sources) Tremor; Translations: [Essential tremor] Onset: 9 11-02-2008 Chronic Sprains and strains (1 source) Disorder of thoracic segment of trunk; Translations: [Strain of muscle and tendon of unspecified wall of thorax, initial encounter] 09-30-2022 Episodic Syncope (2 sources) Vasovagal syncope; Translations: [Syncope and collapse] Episodic Past or Other Problems Problem Classification Problem Date Documented Da te Episodic/Chronic Administrative/social admission (1 source) Encounter for pre-employment examination; Translations: [Encounter for pre-employment examination] Onset: 10-03-2016 10-03-2016 Episodic Headache; including migraine (20 sources) Headache; Translations: [Headache] Onset: 04-26-2008 07-24-2015 Episodic Malaise and fatigue (5 sources) Malaise and fatigue; Translations: [Other malaise] Onset: 07-14-2022 Episodic Other nervous system disorders (20 sources) Other abnormal involuntary movements; Translations: [Abnormal involuntary movements] Onset: 04-26-2008 04-26-2008 Episodic Residual codes; unclassified (20 sources) Insomnia; Translations: [Insomnia, unspecified] Onset: 07-24-2015 07-24-2015 Episodic Screening and history of mental health and substance abuse codes (7 sources) Personal history of other mental and behavioral disorders; Translations: [Personal history of other mental disorders] Onset: 05-26-2022 Episodic Results Test Name Value Interpretation Reference Range Facil ity Vital Signs Date Time Vital Sign Value Performing Clinician Facility 09-30-2022 17:23-0400 Body temperature 98.2 [degF] Cassie POLK Work Phone: [facility] 09-30-2022 17:23-0400 Body weight 91.99 kg Cassie POLK Work Phone: [facility] 09-30-2022 17:23-0400 Diastolic blood pressure 90 mm[Hg] Cassie POLK Work Phone: [facility] 09-30-2022 17:23-0400 Heart rate 80 /min Krislyn Aberegg PA Work Phone: [facility] 09-30-2022 17:23-0400 Respiratory rate 18 /min Krislyn Aberegg PA Work Phone: [facility] 09-30-2022 17:23-0400 SaO2% (BldA) [Mass fraction] 97 % Krislyn Aberegg PA Work Phone: [facility] 09-30-2022 17:23-0400 Systolic blood pressure 138 mm[Hg] Krislyn Aberegg PA Work Phone: [facility] 06-22-2022 09:13-0400 Body temperature 98.29 [degF] Capo Pendlebury SOFTWARE IMPLEMENTATION PROJECT MANAGER.GENERAL TECHNICIAN Work Phone: [facility] 06-22-2022 09:13-0400 Body [facility] 88.91 [facility] SOFTWARE IMPLEMENTATION PROJECT MANAGER.GENERAL TECHNICIAN Work Phone: [facility] 06-22-2022 09:13-0400 Diastolic blood pressure 82 mm[Hg] Capo Pendlebury SOFTWARE IMPLEMENTATION PROJECT MANAGER.GENERAL TECHNICIAN Work Phone: [facility] 06-22-2022 09:13-0400 Heart rate 109 /min Capo Pendlebury SOFTWARE IMPLEMENTATION PROJECT MANAGER.GENERAL TECHNICIAN Work Phone: [facility] 06-22-2022 09:13-0400 Respiratory rate 16 /min [facility] SOFTWARE IMPLEMENTATION PROJECT MANAGER.GENERAL TECHNICIAN Work Phone: [facility] 06-22-2022 09:13-0400 SaO2% (BldA) [Mass fraction] 97 % [facility] SOFTWARE IMPLEMENTATION PROJECT MANAGER.GENERAL TECHNICIAN Work Phone: [facility] 06-22-2022 09:13-0400 Systolic blood pressure 126 mm[Hg] Capo Pendlebury SOFTWARE IMPLEMENTATION PROJECT MANAGER.GENERAL TECHNICIAN Work Phone: [facility] 03-27-2022 12:30-0500 Diastolic blood pressure 75 mm[Hg] Valeria Gordon MD Work Phone: [facility] 03-27-2022 12:30-0500 Heart rate 79 /min Valeria Gordon MD Work Phone: [facility] 03-27-2022 12:30-0500 Respiratory rate 15 /min Valeria Gordon MD Work Phone: [facility] 03-27-2022 12:30-0500 SaO2% (BldA) [Mass fraction] 99 % Valeria Gordon MD Work Phone: [facility] 03-27-2022 12:30-0500 Systolic blood pressure 120 mm[Hg] Valeria Gordon MD Work Phone: [facility] 03-27-2022 12:09-0500 Body temperature 97.5 [degF] Valeria Gordon MD Work Phone: [facility] 03-27-2022 10:30-0500 Body height 175.3 cm Valeria Gordon MD Work Phone: [facility] 03-27-2022 10:30-0500 Body weight 89.81 kg Valeria Gordon MD Work Phone: [facility] 03-19-2022 13:26-0500 Body height 175.3 cm Julio Edison PA-C Work Phone: [facility] 03-19-2022 13:26-0500 Body temperature 98.29 [degF] Julio Edison PA-C Work Phone: [facility] 03-19-2022 13:26-0500 Body weight 89.81 kg Julio Pitman PA-C Work Phone: [facility] 03-19-2022 13:26-0500 Diastolic blood pressure 70 mm[Hg] Julio Pitman PA-C Work Phone: [facility] 03-19-2022 13:26-0500 Heart rate 116 /min Julio Pitman PA-C Work Phone: [facility] 03-19-2022 13:26-0500 Respiratory rate 14 /min Julio Edison PA-C Work Phone: [facility] 03-19-2022 13:26-0500 SaO2% (BldA) [Mass fraction] 95 % Julio Hogan PA-C Work Phone: [facility] 03-19-2022 13:26-0500 Systolic blood pressure 128 mm[Hg] Julio Hogan PA-C Work Phone: [facility] 02-10-2022 14:27-0500 Body weight 88.27 kg Yosef Israel MD Work Phone: [facility] 02-10-2022 14:27-0500 Diastolic blood pressure 80 mm[Hg] Yosef Israel MD Work Phone: [facility] 02-10-2022 14:27-0500 Heart rate 88 /min Yosef Israel MD Work Phone: [facility] 02-10-2022 14:27-0500 Respiratory rate 16 /min Yosef Israel MD Work Phone: [facility] 02-10-2022 14:27-0500 Systolic blood pressure 104 mm[Hg] Yosef Israel MD Work Phone: [facility] 11-05-2021 10:47-0400 Body weight 83.96 kg Yosef Israel MD Work Phone: [facility] 11-05-2021 10:47-0400 Diastolic blood pressure 80 mm[Hg] Yosef Israel MD Work Phone: [facility] 11-05-2021 10:47-0400 Heart rate 84 /min Yosef Israel MD Work Phone: [facility] 11-05-2021 10:47-0400 Respiratory rate 16 /min Yosef Israel MD Work Phone: [facility] 11-05-2021 10:47-0400 Systolic blood pressure 122 mm[Hg] Yosef Israel MD Work Phone: [facility] 10-08-2021 12:02-0400 Body temperature 98.29 [degF] Capo Skinner APRN.CNP Work Phone: [facility] 10-08-2021 12:02-0400 Body weight 83.01 kg Capo Lyonlayla SOFTWARE IMPLEMENTATION PROJECT MANAGER.GENERAL TECHNICIAN Work Phone: [facility] 10-08-2021 12:02-0400 Diastolic blood pressure 80 mm[Hg] Capo Skinner SOFTWARE IMPLEMENTATION PROJECT MANAGER.GENERAL TECHNICIAN Work Phone: [facility] 10-08-2021 12:02-0400 Heart rate 92 /min Capo Skinner SOFTWARE IMPLEMENTATION PROJECT MANAGER.GENERAL TECHNICIAN Work Phone: [facility] 10-08-2021 12:02-0400 Respiratory rate 16 /min Capo Skinner SOFTWARE IMPLEMENTATION PROJECT MANAGER.GENERAL TECHNICIAN Work Phone: [facility] 10-08-2021 12:02-0400 SaO2% (BldA) [Mass fraction] 98 % Capo Skinner SOFTWARE IMPLEMENTATION PROJECT MANAGER.GENERAL TECHNICIAN Work Phone: [facility] 10-08-2021 12:02-0400 Systolic blood pressure 122 mm[Hg] Capo Skinner SOFTWARE IMPLEMENTATION PROJECT MANAGER.GENERAL TECHNICIAN Work Phone: [facility] 09-22-2021 11:35-0400 Body temperature 98.01 [degF] Cee Ewing SOFTWARE IMPLEMENTATION PROJECT MANAGER.GENERAL TECHNICIAN Work Phone: [facility] 09-22-2021 11:35-0400 Body weight 83.01 kg Cee Ewing SOFTWARE IMPLEMENTATION PROJECT MANAGER.GENERAL TECHNICIAN Work Phone: [facility] 09-22-2021 11:35-0400 Diastolic blood pressure 90 mm[Hg] Cee Ewing SOFTWARE IMPLEMENTATION PROJECT MANAGER.GENERAL TECHNICIAN Work Phone: [facility] 09-22-2021 11:35-0400 Heart rate 99 /min Cee Ewing SOFTWARE IMPLEMENTATION PROJECT MANAGER.GENERAL TECHNICIAN Work Phone: [facility] 09-22-2021 11:35-0400 Respiratory rate 16 /min Cee Ewing SOFTWARE IMPLEMENTATION PROJECT MANAGER.GENERAL TECHNICIAN Work Phone: [facility] 09-22-2021 11:35-0400 SaO2% (BldA) [Mass fraction] 98 % Cee Ewing SOFTWARE IMPLEMENTATION PROJECT MANAGER.GENERAL TECHNICIAN Work Phone: [facility] 09-22-2021 11:35-0400 Systolic blood pressure 138 mm[Hg] Cee Gildardo TODD Work Phone: [facility] 08-23-2021 09:09-0400 Body weight 80.29 kg Yosef Israel MD Work Phone: [facility] 08-23-2021 09:09-0400 Diastolic blood pressure 70 mm[Hg] Yosef Israel MD Work Phone: [facility] 08-23-2021 09:09-0400 Heart rate 86 /min Yosef Israel MD Work Phone: [facility] 08-23-2021 09:09-0400 Respiratory rate 14 /min Yosef Israel MD Work Phone: [facility] 08-23-2021 09:09-0400 Systolic blood pressure 114 mm[Hg] Yosef Israel MD Work Phone: [facility] 07-30-2021 11:13-0400 Body weight 79.38 kg Yosef Israel MD Work Phone: [facility] 07-30-2021 11:13-0400 Diastolic blood pressure 80 mm[Hg] Yosef Israel MD Work Phone: [facility] 07-30-2021 11:13-0400 Heart rate 76 /min Yosef Israel MD Work Phone: [facility] 07-30-2021 11:13-0400 Respiratory rate 16 /min Yosef Israel MD Work Phone: [facility] 07-30-2021 11:13-0400 Systolic blood pressure 118 mm[Hg] Yosef Israel MD Work Phone: [facility] 07-02-2021 10:07-0400 Body weight 77.7 kg Yosef Israel MD Work Phone: [facility] 07-02-2021 10:07-0400 Diastolic blood pressure 68 mm[Hg] Yosef Israel MD Work Phone: [facility] 07-02-2021 10:07-0400 Heart rate 78 /min Yosef Israel MD Work Phone: [facility] 07-02-2021 10:07-0400 Respiratory rate 16 /min Yosef Israel MD Work Phone: [facility] 07-02-2021 10:07-0400 Systolic blood pressure 112 mm[Hg] Yosef Israel MD Work Phone: [facility] 10-03-2016 14:00-0400 BMI (Body Mass Index) 20.23 kg/m2 Yosef Kaplan TUMBLING INSTRUCTOR-C [facility] Work Phone: 10-03-2016 14:00-0400 Body Temperature 97.3 [degF] Yosef Kaplan TUMBLING INSTRUCTOR-C [facility] Work Phone: 10-03-2016 14:00-0400 BP Diastolic 60 mm[Hg] Yosef Kaplan TUMBLING INSTRUCTOR-C [facility] Work Phone: 10-03-2016 14:00-0400 BP Systolic 126 mm[Hg] Yosef Kaplan TUMBLING INSTRUCTOR-C [facility] Work Phone: 10-03-2016 14:00-0400 Height 175.26 cm Yosef Kaplan TUMBLING INSTRUCTOR-C [facility] Work Phone: 10-03-2016 14:00-0400 Pulse (Heart Rate) 76 /min Yosef Kaplan TUMBLING INSTRUCTOR-C [facility] Work Phone: 10-03-2016 14:00-0400 Respiratory Rate 16 /min Yosef Kaplan TUMBLING INSTRUCTOR-C [facility] Work Phone: 10-03-2016 14:00-0400 Weight 62.14 kg Yosef Kaplan TUMBLING INSTRUCTOR-C [facility] Work Phone: Encounters Encounter Date Encounter Type Care Provider Facility Start: 04-01-2023 End: 04-02-2023 ambulatory BALTA MAURO Facility:[facility] Start: 03-06-2023 End: 03-07-2023 ambulatory YOSEF ISRAEL Facility:[facility] Start: 11-25-2022 End: 11-25-2022 [facility] J Rajguru SOFTWARE IMPLEMENTATION PROJECT MANAGER.GENERAL TECHNICIAN Work Phone: Psychiatry Procedures Date Procedure Procedure Detail Performing Clinician Start: 11-25-2022 Follow-up visit Follow Up AME PÉREZ Start: 10-03-2016 History and physical examination, pre-employment Employment physical Yosef Kaplan TUMBLING INSTRUCTOR-C Start: 10-03-2016 End: 10-03-2016 Pre-employment PE Yosef Kaplan TUMBLING INSTRUCTOR-C Plan of Treatment Date Care Activity Detail Author Start: 08-21-2026 Urine microalbumin profile DTA P,TDAP,TD (8 - Td or Tdap) [facility] Start: 02-10-2023 COVID-19 VACCINE (2 - Booster for Michelle series) COVID-19 VACCINE (2 - Booster for Michelle series) [facility] Immunizations Immunization Date Immunization Notes Care Provider Fa len 10-03-2016 measles, mumps and rubella virus vaccine Yosef Israel MD Work Phone: [facility] 01-24-2016 influenza, injectabl e, quadrivalent, contains preservative Yosef Israel MD Work Phone: [facility] 01-26-2015 influenza, injectabl e, quadrivalent, contains preservative Yosef Israel MD Work Phone: [facility] 02-21-2009 influenza virus vaccine, unspecified formulation Yosef Israel MD Work Phone: [facility] Work Phone: 02-21-2009 novel [id number], all formulations Yosef Israel MD Work Phone: [facility] Work Phone: 12-28-2007 influenza virus vaccine, unspecified formulation Yosef Israel MD Work Phone: [facility] Work Phone: 01-13-2007 influenza virus vaccine, unspecified formulation Yosef Israel MD Work Phone: [facility] Work Phone: 01-13-2007 Meningococcal, MCV4, unspecified conjugate formulation(groups A, C, Y and W-135) Yosef Israel MD Work Phone: [facility] Work Phone: 01-13-2007 tetanus toxoid, reduced diphtheria toxoid, and acellular pertussis vaccine, adsorbed Yosef Israel MD Work Phone: [facility] Work Phone: 01-20-2006 influenza virus vaccine, unspecified formulation Yosef Israel MD Work Phone: [facility] 01-21-2005 influenza virus vaccine, unspecified formulation Yosef Israel MD Work Phone: [facility] Work Phone: 02-06-2003 influenza virus vaccine, unspecified formulation Yosef Israel MD Work Phone: [facility] Work Phone: 02-08-2001 influenza virus vaccine, unspecified formulation Yosef Israel MD Work Phone: [facility] Work Phone: 02-22-2000 influenza virus vaccine, unspecified formulation Yosef Israel MD Work Phone: [facility] Work Phone: 11-20-1999 diphtheria, tetanus toxoids and acellular pertussis vaccine Yosef Israel MD Work Phone: [facility] Work Phone: 11-20-1999 haemophilus influenz ae type b vaccine, HbOC conjugate Yosef Israel MD Work Phone: [facility] Work Phone: 11-20-1999 measles, mumps and rubella virus vaccine Yosef Israel MD Work Phone: [facility] Work Phone: 11-20-1999 poliovirus vaccine, inactivated Yosef Israel MD Work Phone: [facility] Work Phone: 01-17-1998 influenza virus vaccine, unspecified formulation Yosef Israel MD Work Phone: [facility] Work Phone: 12-28-1996 influenza virus vaccine, unspecified formulation Yosef Israel MD Work Phone: [facility] Work Phone: 02-22-1996 influenza virus vaccine, unspecified formulation Yosef Israel MD Work Phone: [facility] Work Phone: 01-19-1996 influenza virus vaccine, unspecified formulation Yosef Israel MD Work Phone: [facility] Work Phone: 12-28-1995 diphtheria, tetanus toxoids and acellular pertussis vaccine Yosef Israel MD Work Phone: [facility] Work Phone: 09-28-1995 measles, mumps and rubella virus vaccine Yosef Israel MD Work Phone: [facility] Work Phone: 04-02-1995 diphtheria, tetanus toxoids and acellular pertussis vaccine Yosef Israel MD Work Phone: [facility] Work Phone: 04-02-1995 haemophilus influenz ae type b vaccine, HbOC conjugate Yosef Israel MD Work Phone: [facility] Work Phone: 04-02-1995 hepatitis B vaccine, pediatric or pediatric/adolescent dosage Yosef Israel MD Work Phone: [facility] Work Phone: 04-02-1995 trivalent poliovirus vaccine, live, oral Yosef Israel MD Work Phone: [facility] Work Phone: 02-10-1995 diphtheria, tetanus toxoids and acellular pertussis vaccine Yosef Israel MD Work Phone: [facility] Work Phone: 02-10-1995 haemophilus influenz ae type b vaccine, HbOC conjugate Yosef Israel MD Work Phone: [facility] Work Phone: 02-10-1995 trivalent poliovirus vaccine, live, oral Yosef Israel MD Work Phone: [facility] Work Phone: 1994 diphtheria, tetanus toxoids and acellular pertussis vaccine Yosef Israel MD Work Phone: [facility] Work Phone: 1994 haemophilus influenz ae type b vaccine, HbOC conjugate Yosef Israel MD Work Phone: [facility] Work Phone: 1994 trivalent poliovirus vaccine, live, oral Yosef Israel MD Work Phone: [facility] Work Phone: 1994 hepatitis B vaccine, pediatric or pediatric/adolescent dosage Yosef Israel MD Work Phone: [facility] Work Phone: 1994 hepatitis B vaccine, pediatric or pediatric/adolescent dosage Yosef Israel MD Work Phone: [facility] Work Phone: Payers Date Payer Category Payer Unknown [id number] 2016 Medicaid [place] [employer] [place] [employer] [id number] 2016-Present [phone] [place] [id number] Medicaid [id number] 2016 Medicaid [id number] 2016 Medicaid [id number] Social History Date Type Detail Facility Start: 11-05-2021 Tobacco smoking stat [facility] Never smoked tobacco [facility] Start: 07-02-2021 End: 10-08-2021 Alcohol intake Lifetime non-drinker (finding) [facility] Start: 11-08-2020 End: 02-17-2022 History SDOH Alcohol Frequency 1 [facility] Start: 12-20-2019 End: 02-17-2022 History SDOH Social Connections Phone 2 [facility] Start: 12-20-2019 End: 02-17-2022 History SDOH Social Connections Living 3 [facility] Start: 12-20-2019 End: 02-17-2022 History SDOH Physical Activity DPW 0 [facility] Start: 12-20-2019 End: 07-29-2021 History SDOH Financial 5 [facility] Start: 12-20-2019 Education 12 [facility] Start: 12-18-2008 End: 11-05-2021 Tobacco Comment outside [facility] Start: 1995 Sex Assigned At Male C [facility] Start: 06-21-2021 End: 02-10-2022 Exposure to SARS-CoV-2 (event) Not sure [facility] Start: 07-29-2021 History SDOH Alcohol Std Drinks 98 [facility] Start: 09-12-2021 End: 09-22-2021 Exposure to SARS-CoV-2 (event) Yes [facility] Start: 10-14-2021 End: 11-25-2022 Alcohol intake Ex-drinker (finding) [facility] Start: 11-05-2021 Tobacco use and exposure Smoke less tobacco non-user [facility] Start: 02-17-2022 History SDOH Physica l Activity DPW 7 [facility] [facility] Start: 02-17-2022 End: 08-04-2022 History of Social function [facility] Start: 02-17-2022 End: 08-04-2022 Social connection and isolation panel [facility] Do you belong to any clubs or organizations such as mormonism groups, unions, fraternal or athletic groups, or school groups? No [facility] Are you now , , , , never or living with a partner? [facility] How often to you hav e a drink containing alcohol? Never [facility] How many standard dr inks containing alcohol do you have on a typical day? Patient does not drink [facility] How hard is it for y ou to pay for the very basics like food, housing, medical care, and heating Hard [facility] Do you feel stress - tense, restless, nervous, or anxious, or unable to sleep at night because your mind is troubled all the time - these days [OSQ] To some extent [facility] (I/We) worried wheth er (my/our) food would run out before (I/we) got money to buy more. Sometimes true [facility] Start: 10-04-2019 Gender identity Identifies as male gender (finding) [facility] Start: 10-04-2019 Sexual orientation Heterosexual (crescencio mendosa) [facility] Clinical Notes 11-14-2020 to 04-01-2023 Ame Pérez, SOFTWARE IMPLEMENTATION PROJECT MANAGER.GENERAL TECHNICIAN - 11/25/2022 12:56 PM EDTTelephone Encounter - Jacque Jorgensen - 10/30/2022 11:13 AM Cassie Florez PA - 09/30/2022 5:31 PM EDTPatient Instructions Note Date & Type Note Facility 04-01-2023 Note HNO ID: [id number] Author: BALTA MAURO PA-C Service: ? Author Type: Physician Fermentation Manager Type: Progress Notes Filed: 04/01/2023 13:01 Note Text: Chief Complaint Patient presents with: Abdominal Pain: and vomiting x 1 year HPI Amilcar Haile is a 27 year old male who presents here today for Above Complaints.. Patient reports chronic GI issues. For at least 1 year. Had EGD and colonoscopy in Mar that showed chronic gastritis and hiatal hernia Was given prescription for omeprazole but patient states this did not seem to help him. Reports nausea and vomiting with epigastric abdominal pain. Sometime when he bend over, he regurgs stomach contents. Reports bowel movements are mostly loose but will also have constipation. No current fevers. Past medical history, appointments, medications, allergies reviewed. Previous Medical History PAST MEDICAL HISTORY Diagnosis Date Attention deficit disorder with hyperactivity(314.01) 12/28/2007 Depression Esophageal reflux Generalized anxiety disorder Migraine with aura Seizures (HCC) Unspecified asthma(493.90) Previous Surgical History PAST SURGICAL HISTORY Procedure Laterality Date COLONOSCOPY 03/27/2022 EGD 03/27/2022 PAST SURGICAL HISTORY OF [facility] Family History FAMILY HISTORY Problem Relation Age of Onset Anxiety disorder Mother Depression Mother Asthma Father other (adhd) Father other (encephalitis) Maternal Grandfather other (ms) Maternal Grandfather other (cirrhosis) Maternal Grandfather Heart Other MOMS SIDE other (cholesterol) Other dads side Patient Allergies ALLERGIES Allergen Reactions Environmental: Cats* Cough, Shortness of Breath Rondec [Bromphenira* mom doesn't recall reaction as a baby Sympathomimetic Age* Sudafed Current Medications Current Outpatient Medications on File Prior to Visit Medication Sig desvenlafaxine ER (PRISTIQ) 50 mg 24 hr tablet Take 1 tablet by mouth once daily. omega-3 acid ethyl esters (LOVAZA) 1 gram capsule Take 1 capsule by mouth every afternoon. ARIPiprazole (ABILIFY) 5 mg tablet Take 1 tablet by mouth once daily. busPIRone (BUSPAR) 15 mg tablet Take 1 tablet by mouth three times daily. albuterol HFA (PROVENTIL HFA, VENTOLIN HFA) 90 mcg/actuation inhaler Inhale 2 Puffs as instructed every 6 hours as needed. midodrine (PROAMITINE) 5 mg tablet Take 1 tablet by mouth three times daily. SUMAtriptan (IMITREX) 50 mg tablet Take 1 tablet by mouth as directed. TAKE AT ONSET OF MIGRAINE. MAY REPEAT X 1 IF NEEDED. fluticasone (FLONASE) 50 mcg/actuation nasal spray Use 2 Sprays in each nostril once daily. Rinse mouth after use. ergocalciferol 50,000 unit capsule (VITAMIN D2, DRISDOL) Take 1 capsule by mouth one time a week. omega-3 fatty acids 1,000 mg cap Take 1 capsule by mouth once daily. omeprazole (PRILOSEC) 40 mg capsule Take 1 capsule by mouth once daily. diphenoxylate-atropine (LOMOTIL) 2.5-0.025 mg per tablet Take 1 tablet by mouth four times daily as needed for up to 30 days. No current facility-administered medications on file prior to visit. Social History Social History Tobacco Use Smoking status: Never Smokeless tobacco: Never Tobacco comments: outside Vaping Use Vaping Use: Never used Substance Use Topics Alcohol use: Not Currently Drug use: Not Currently Types: Marijuana Review of Symptoms REVIEW OF SYSTEMS See hpi EXAM: BP 110/80 (BP Site: Left Arm, BP Position: Sitting, BP Cuff Size: Large Adult) Pulse 115 Temp 36.7 ?C (98.1 ?F) Resp 18 Wt 86.2 kg (190 lb) BMI 28.06 kg/m? General Appearance: Well appearing, alert, in no acute distress, well-hydrated, well nourished.. Neck: Supple, no adenopathy; thyroid symmetric, normal size, no bruits. Lungs: Lungs clear to auscultation. No wheezing, rhonchi, rales.. Heart: RRR without murmur, gallop, or rubs. No ectopy. Abdomen: Normal abdominal exam, Abdomen soft, non-tender. Bowel sounds normal. No masses, organomegaly. Peripheral Pulses: Normal. Health Maintenance List Hepatitis C Screening Never done HIV Screening Never done Influenza Vaccine(1) due on 11/21/2022 Covid-19 Vaccine(2 - 2022-24 season) due on 11/21/2022 DTaP,Tdap,Td Vaccine(9 - Td or Tdap) due on 11/10/2030 Hepatitis B Vaccine Completed HPV Vaccine Aged Out Data reviewed ASSESSMENT/PLAN: 1. Gastroesophageal reflux disease with esophagitis, unspecified whether hemorrhage - ICD9: 530.11, ICD10: K21.00 (primary diagnosis) Will set up with gastro. Restart omeprazole. Check labs today Set up US. - CONSULT TO GASTROENTEROLOGY - COMP METABOLIC PANEL - LIPASE BLD - AMYLASE BLD - CBC + DIFF - US ABD RIGHT UPPER QUADRANT 2. Hiatal hernia - ICD9: 553.3, ICD10: K44.9 As above - CONSULT TO GASTROENTEROLOGY - COMP METABOLIC PANEL - LIPASE BLD - AMYLASE BLD - CBC + DIFF - US ABD RIGHT UPPER QUADRANT 3. Epigastric pain - ICD9: 789.06, (more content not included)... [facility] 03-06-2023 Note HNO ID: [id number] Author: Ame Pérez APRN.GENERAL TECHNICIAN Service: ? Author Type: Nurse Practitioner Type: Progress Notes Filed: 03/06/2023 2:49 PM Note Text: Patient did not log in for his virtual visit with the provider today. He did not answer his phone when he was contacted prior to the appointment time. [facility] 11-25-2022 Note HNO ID: [id number] Author: Ame Pérez APRN.GENERAL TECHNICIAN Service: ? Author Type: Nurse Practitioner Type: Progress Notes Filed: 11/25/2022 1:35 PM Note Text: PSYC FOLLOW UP - PSYCHIATRIC PROGRESS NOTE DIAGNOSIS: Vitamin D deficiency Generalized Anxiety Disorder MDD, recurrent, in partial remission Malaise and fatigue GAF: -80-71 If symptoms are present, they are transient and expectable reactions to psychosocial stressors TREATMENT PLAN: Continue Pristiq, Buspar, and Abilify at the same dose. Complete vitamin D lab work. Continue Beason 3 fatty acid supplement at the same dose. Follow up in 3 months. The effects and side effects of all the medications were reviewed in detail with the patient. He is in agreement with the treatment plan and aware to reach out with any questions, concerns, or worsening of symptoms prior to the next appointment. Patient denies any involuntary movement related side effects. CC: Follow up for psychiatric medication management. With the patient consent, visit was performed virtually. I have communicated my name and active licensure. The patient's identity and physical location were verified at the time of this visit. Either the patient or their legal agency service representative has been informed of the risks and benefits of -- and alternatives to -- treatment through a remote evaluation and consents to proceed with the evaluation remotely. HPI: Amilcar Haile is a 27 year old Male with a history of MAYKEL and MDD presenting today for follow-up. Date of last visit: 08/04/2022 Plan from last visit: Cross taper from Prozac to Pristiq due to lack of efficacy. Start Vitamin D supplement due to deficiency. Start Beason 3 fatty acid supplement to help with mood and anxiety symptoms. Continue Abilify and Buspar at the same dose. Collaborate with primary care team in patient's care. Follow up with this provider in November. Today Valdemar shares that things have been alright. He reports improvement in his overall anxiety and depression. He has tolerated the Pristiq without any side effects. He reports that he feels tired time to time. He is consistent in taking Vitamin D and Beason 3. His son has been struggling to sleep through the night due to tonsilitis. This has impacted his sleep and fatigue. He is not exercising but he reports that he is eating well. He feels that his anxiety is not getting in the way of him doing things. Mood has improved and he is feeling happy. Interval Progress: Improved Risks and benefits of the medication, including any black box warnings, were discussed with the patient. Social History: See HPI PATIENT DATA: Generalized Anxiety Disorder Scale (MAYKEL-7) MAYKEL - 7 SCORES 07/14/2022 08/04/2022 11/25/2022 MAYKEL-7 Score 19 17 6 (0-4) minimal anxiety, (5-9) mild anxiety, (10-14) moderate anxiety, (15-21) severe anxiety Patient Health Questionnaire (PHQ-9) PHQ-9 07/14/2022 08/04/2022 11/25/2022 Score 17 13 9 (0-4) minimal depression, (5-9) mild depression, (10-14) moderate depression, (15-19) moderately severe depression, (20-27) severe depression ROS: See HPI General: Negative for fever, malaise, unintentional weight loss HEENT: Negative for recent changes in vision or hearing, no nasal drainage Respiratory: Negative for cough, wheezing or SOB Cardiovascular: Negative for chest pain GI: Negative for nausea, vomiting, change in bowel habits MUSCULOSKELETAL: Negative for acute back or joint pain SKIN: Negative for rash NEURO: Negative for headaches, seizures, focal neurological deficits All other systems negative. VITAL SIGNS: BP Temp Pulse Resp SpO2 MENTAL STATUS EXAMINATION: Appearance: Appropriately groomed, appears stated age Behavior: Appropriately engaged Psychomotor: No psychomotor agitation Cognition Level of Consciousness: Awake and alert. No fluctuation in wakefulness. Orientation: Grossly oriented Memory: Intact Attention/Concentration: Good Fund of Knowledge: Able to demonstrate an awareness of current events. Mood: Euthymic Affect: Congruent to mood Speech/Language: Appropriate tone, prosody, kamran, phonetics, and syntax Thought Form: Goal-directed. No loosening of associations. Thought Content: No delusions noted or endorsed. Perceptual Disturbances: Did not appear to respond to auditory stimuli. Safety: Suicidal Ideations: No suicidal ideation, intent or plan. Homicidal Ideations: No homicidal ideation, intent or plan. Insight: Appropriate Judgment: Appropriate I spent a total of 28 minutes on the date of the service which included preparing to see the patient, [id number] patient care, completing clinical documentation, and counseling and educating the patient/family/caregiver, ordering medications/labs. Ame Pérez APRN.[facility] November 25, 2022 12:57 PM This note was partially generated using [facility] voice recognition system. Note was reviewed for accuracy. T (more content not included)... [facility] 11-25-2022 History of Present illness Narrative Images from the original note were not included. PSYC FOLLOW UP - PSYCHIATRIC PROGRESS NOTE DIAGNOSIS: Vitamin D deficiency Generalized Anxiety Disorder MDD, recurrent, in partial remission Malaise and fatigue GAF: -80-71 If symptoms are present, they are transient and expectable reactions to psychosocial stressors TREATMENT PLAN: Continue Pristiq, Buspar, and Abilify at the same dose. Complete vitamin D lab work. Continue Beason 3 fatty acid supplement at the same dose. Follow up in 3 months. The effects and side effects of all the medications were reviewed in detail with the patient. He is in agreement with the treatment plan and aware to reach out with any questions, concerns, or worsening of symptoms prior to the next appointment. Patient denies any involuntary movement related side effects. CC: Follow up for psychiatric medication management. With the patient consent, visit was performed virtually. I have communicated my name and active licensure. The patient's identity and physical location were verified at the time of this visit. Either the patient or their legal agency service representative has been informed of the risks and benefits of -- and alternatives to -- treatment through a remote evaluation and consents to proceed with the evaluation remotely. HPI: Amilcar Haile is a 27 year old Male with a history of MAYKEL and MDD presenting today for follow-up. Date of last visit: 08/04/2022 Plan from last visit: Cross taper from Prozac to Pristiq due to lack of efficacy. Start Vitamin D supplement due to deficiency. Start Beason 3 fatty acid supplement to help with mood and anxiety symptoms. Continue Abilify and Buspar at the same dose. Collaborate with primary care team in patient's care. Follow up with this provider in November. Today Valdemar shares that things have been alright. He reports improvement in his overall anxiety and depression. He has tolerated the Pristiq without any side effects. He reports that he feels tired time to time. He is consistent in taking Vitamin D and Beason 3. His son has been struggling to sleep through the night due to tonsilitis. This has impacted his sleep and fatigue. He is not exercising but he reports that he is eating well. He feels that his anxiety is not getting in the way of him doing things. Mood has improved and he is feeling happy. Interval Progress: Improved Risks and benefits of the medication, including any black box warnings, were discussed with the patient. Social History: See HPI PATIENT DATA: Generalized Anxiety Disorder Scale (MAYKEL-7) MAYKEL - 7 SCORES 07/14/2022 08/04/2022 11/25/2022 MAYKEL-7 Score 19 17 6 (0-4) minimal anxiety, (5-9) mild anxiety, (10-14) moderate anxiety, (15-21) severe anxiety Patient Health Questionnaire (PHQ-9) PHQ-9 07/14/2022 08/04/2022 11/25/2022 Score 17 13 9 (0-4) minimal depression, (5-9) mild depression, (10-14) moderate depression, (15-19) moderately severe depression, (20-27) severe depression ROS: See HPI General: Negative for fever, malaise, unintentional weight loss HEENT: Negative for recent changes in vision or hearing, no nasal drainage Respiratory: Negative for cough, wheezing or SOB Cardiovascular: Negative for chest pain GI: Negative for nausea, vomiting, change in bowel habits MUSCULOSKELETAL: Negative for acute back or joint pain SKIN: Negative for rash NEURO: Negative for headaches, seizures, focal neurological deficits All other systems negative. VITAL SIGNS: BP Temp Pulse Resp SpO2 MENTAL STATUS EXAMINATION: Appearance: Appropriately groomed, appears stated age Behavior: Appropriately engaged Psychomotor: No psychomotor agitation Cognition Level of Consciousness: Awake and alert. No fluctuation in wakefulness. Orientation: Grossly oriented Memory: Intact Attention/Concentration: Good Fund of Knowledge: Able to demonstrate an awareness of current events. Mood: Euthymic Affect: Congruent to mood Speech/Language: Appropriate tone, prosody, kamran, phonetics, and syntax Thought Form: Goal-directed. No loosening of associations. Thought Content: No delusions noted or endorsed. Perceptual Disturbances: Did not appear to respond to auditory stimuli. Safety: Suicidal Ideations: No suicidal ideation, intent or plan. Homicidal Ideations: No homicidal ideation, intent or plan. Insight: Appropriate Judgment: Appropriate I spent a total of 28 minutes on the date of the service which included preparing to see the patient, [id number] patient care, completing clinical documentation, and counseling and educating the patient/family/caregiver, ordering medications/labs. Ame Pérez APRN.GENERAL TECHNICIAN November 25, 2022 12:57 PM This note was partially generated using [facility] voice recognition system. Note was reviewed for accuracy. There may be minor misspellings or grammar miscues with [employer] voice recognition. documented in this encounter [facility] 10-30-2022 Miscellaneous Notes Past appt 11/25/22 Future appt 11/25/22 Thanks Jacque Jorgensen documented in this encounter [facility] 09-30-2022 Note HNO ID: [id number] Author: FELICITAS Isaacs Service: ? Author Type: Physician Fermentation Manager Type: Progress Notes Filed: 09/30/2022 5:41 PM Note Text: This note was created using velingoriter. Subjective Amilcar Haile is a 27 year old male. HPI 27-year-old male presents for left-sided mid back pain. Patient states that pain started this morning. Denies any fall or injury. Pain worse with movement. No urinary symptoms. He is unsure if he slept wrong. He is taken naproxen today with some improvement. No chest pain or shortness of breath. No rash. No history of thoracic issues in the past. No history of kidney issues. No other complaints. PAST MEDICAL HISTORY Diagnosis Date Attention deficit disorder with hyperactivity(314.01) 12/28/2007 Depression Esophageal reflux Generalized anxiety disorder Migraine with aura Seizures (HCC) Unspecified asthma(493.90) PAST SURGICAL HISTORY Procedure Laterality Date COLONOSCOPY 03/27/2022 EGD 03/27/2022 PAST SURGICAL HISTORY OF [facility] ALLERGIES Environmental: Cats. Dogs, Horses [Other]; Rondec [Brompheniramine-Pseudoephedrin]; and Sympathomimetic Agents MEDICATIONS ergocalciferol 50,000 unit capsule (VITAMIN D2, DRISDOL) Take 1 capsule by mouth one time a week. busPIRone (BUSPAR) 15 mg tablet Take 1 tablet by mouth three times daily. omeprazole (PRILOSEC) 40 mg capsule Take 1 capsule by mouth once daily. albuterol HFA (PROVENTIL HFA, VENTOLIN HFA) 90 mcg/actuation inhaler Inhale 2 Puffs as instructed every 6 hours as needed. midodrine (PROAMITINE) 5 mg tablet Take 1 tablet by mouth three times daily. SUMAtriptan (IMITREX) 50 mg tablet Take 1 tablet by mouth as directed. TAKE AT ONSET OF MIGRAINE. MAY REPEAT X 1 IF NEEDED. fluticasone (FLONASE) 50 mcg/actuation nasal spray Use 2 Sprays in each nostril once daily. Rinse mouth after use. methocarbamol (ROBAXIN) 500 mg tablet Take 1 tablet by mouth every 6 hours as needed (Pain) for up to 3 days. desvenlafaxine ER (PRISTIQ) 25 mg 24 hr tablet Take 1 tablet by mouth once daily for 7 days. desvenlafaxine ER (PRISTIQ) 50 mg 24 hr tablet Take 1 tablet by mouth once daily. Start after completing 7 days of Pristiq 25 mg first. ARIPiprazole (ABILIFY) 5 mg tablet Take 1 tablet by mouth once daily. omega-3 fatty acids 1,000 mg cap Take 1 capsule by mouth once daily. diphenoxylate-atropine (LOMOTIL) 2.5-0.025 mg per tablet Take 1 tablet by mouth four times daily as needed for up to 30 days. FAMILY HISTORY Problem Relation Age of Onset Anxiety disorder Mother Depression Mother Asthma Father other (adhd) Father other (encephalitis) Maternal Grandfather other (ms) Maternal Grandfather other (cirrhosis) Maternal Grandfather Heart Other MOMS SIDE other (cholesterol) Other dads side Social History Tobacco Use Smoking status: Never Smokeless tobacco: Never Tobacco comments: outside Vaping Use Vaping Use: Never used Substance Use Topics Alcohol use: Not Currently Drug use: Not Currently Types: Marijuana Review of Systems Constitutional: Negative for chills and fever. HENT: Negative for congestion and sore throat. Respiratory: Negative for cough and shortness of breath. Gastrointestinal: Negative for diarrhea and vomiting. Musculoskeletal: Positive for back pain. Objective BP 138/90 Pulse 80 Temp 36.8 ?C (98.2 ?F) (Temporal) Resp 18 Wt 92 kg (202 lb 12.8 oz) SpO2 97% BMI 29.95 kg/m? Physical Exam Vitals and nursing note reviewed. Constitutional: General: He is not in acute distress. Appearance: Normal appearance. He is not toxic-appearing. HENT: Nose: Nose normal. Mouth/Throat: Mouth: Mucous membranes are moist. Eyes: Conjunctiva/sclera: Conjunctivae normal. Cardiovascular: Rate and Rhythm: Normal rate and regular rhythm. Pulmonary: Effort: Pulmonary effort is normal. Breath sounds: Normal breath sounds. Musculoskeletal: Thoracic back: Tenderness present. No swelling or bony tenderness. Normal range of motion. Back: Comments: Tenderness over left-sided thoracic paraspinal muscles. Pain worse with movement. No rash. No CVA tenderness. No midline tenderness. No lateral or anterior rib tenderness. No abdominal tenderness. Skin: General: Skin is warm and dry. Neurological: Mental Status: He is alert. Assessment and Plan ASSESSMENT/PLAN: 1. Strain of thoracic region, initial encounter - ICD9: 847.1, ICD10: S29.019A -Suspect musculoskeletal strain, pain worse with movement and with palpation. No urinary symptoms. Low suspicion for UTI/pyelonephritis/kidney stone. -No injury. No midline or bony tenderness. Low suspicion for bony abnormality or fracture -Recommend rest, ice, NSAIDs. -Rx for Robaxin. Advised not to take this while driving. -Work note provided. -Advised if symptoms do not improve, follow-up with PCP. -If any urinary symptoms, fevers, shortness of breath, go to ER. Diagnosis (more content not included)... [facility] 09-30-2022 Note HNO ID: [id number] Author: FELICITAS Isaacs Service: ? Author Type: Physician Fermentation Manager Type: Progress Notes Filed: 09/30/2022 5:41 PM Note Text: This note was created using velingoriter. Subjective Amilcar Haile is a 27 year old male. Review of Systems Objective BP 138/90 Pulse 80 Temp 36.8 ?C (98.2 ?F) (Temporal) Resp 18 Wt 92 kg (202 lb 12.8 oz) SpO2 97% BMI 29.95 kg/m? Physical Exam Assessment and Plan Problem List Items Addressed This Visit None Visit Diagnoses Strain of thoracic region, initial encounter - Primary [facility] 09-30-2022 History of Present illness Narrative Images from the original note were not included. This note was created using NoteWriter. Subjective Amilcar Haile is a 27 year old male. HPI 27-year-old male presents for left-sided mid back pain. Patient states that pain started this morning. Denies any fall or injury. Pain worse with movement. No urinary symptoms. He is unsure if he slept wrong. He is taken naproxen today with some improvement. No chest pain or shortness of breath. No rash. No history of thoracic issues in the past. No history of kidney issues. No other complaints. PAST MEDICAL HISTORY Diagnosis Date Attention deficit disorder with hyperactivity(314.01) 12/28/2007 Depression Esophageal reflux Generalized anxiety disorder Migraine with aura Seizures (HCC) Unspecified asthma(493.90) PAST SURGICAL HISTORY Procedure Laterality Date COLONOSCOPY 03/27/2022 EGD 03/27/2022 PAST SURGICAL HISTORY OF [facility] ALLERGIES Environmental: Cats. Dogs, Horses [Other]; Rondec [Brompheniramine-Pseudoephedrin]; and Sympathomimetic Agents MEDICATIONS ergocalciferol 50,000 unit capsule (VITAMIN D2, DRISDOL) Take 1 capsule by mouth one time a week. busPIRone (BUSPAR) 15 mg tablet Take 1 tablet by mouth three times daily. omeprazole (PRILOSEC) 40 mg capsule Take 1 capsule by mouth once daily. albuterol HFA (PROVENTIL HFA, VENTOLIN HFA) 90 mcg/actuation inhaler Inhale 2 Puffs as instructed every 6 hours as needed. midodrine (PROAMITINE) 5 mg tablet Take 1 tablet by mouth three times daily. SUMAtriptan (IMITREX) 50 mg tablet Take 1 tablet by mouth as directed. TAKE AT ONSET OF MIGRAINE. MAY REPEAT X 1 IF NEEDED. fluticasone (FLONASE) 50 mcg/actuation nasal spray Use 2 Sprays in each nostril once daily. Rinse mouth after use. methocarbamol (ROBAXIN) 500 mg tablet Take 1 tablet by mouth every 6 hours as needed (Pain) for up to 3 days. desvenlafaxine ER (PRISTIQ) 25 mg 24 hr tablet Take 1 tablet by mouth once daily for 7 days. desvenlafaxine ER (PRISTIQ) 50 mg 24 hr tablet Take 1 tablet by mouth once daily. Start after completing 7 days of Pristiq 25 mg first. ARIPiprazole (ABILIFY) 5 mg tablet Take 1 tablet by mouth once daily. omega-3 fatty acids 1,000 mg cap Take 1 capsule by mouth once daily. diphenoxylate-atropine (LOMOTIL) 2.5-0.025 mg per tablet Take 1 tablet by mouth four times daily as needed for up to 30 days. FAMILY HISTORY Problem Relation Age of Onset Anxiety disorder Mother Depression Mother Asthma Father other (adhd) Father other (encephalitis) Maternal Grandfather other (ms) Maternal Grandfather other (cirrhosis) Maternal Grandfather Heart Other MOMS SIDE other (cholesterol) Other dads side Social History Tobacco Use Smoking status: Never Smokeless tobacco: Never Tobacco comments: outside Vaping Use Vaping Use: Never used Substance Use Topics Alcohol use: Not Currently Drug use: Not Currently Types: Marijuana Review of Systems Constitutional: Negative for chills and fever. HENT: Negative for congestion and sore throat. Respiratory: Negative for cough and shortness of breath. Gastrointestinal: Negative for diarrhea and vomiting. Musculoskeletal: Positive for back pain. Objective BP 138/90 Pulse 80 Temp 36.8 C (98.2 F) (Temporal) Resp 18 Wt 92 kg (202 lb 12.8 oz) SpO2 97% BMI 29.95 kg/m Physical Exam Vitals and nursing note reviewed. Constitutional: General: He is not in acute distress. Appearance: Normal appearance. He is not toxic-appearing. HENT: Nose: Nose normal. Mouth/Throat: Mouth: Mucous membranes are moist. Eyes: Conjunctiva/sclera: Conjunctivae normal. Cardiovascular: Rate and Rhythm: Normal rate and regular rhythm. Pulmonary: Effort: Pulmonary effort is normal. Breath sounds: Normal breath sounds. Musculoskeletal: Thoracic back: Tenderness present. No swelling or bony tenderness. Normal range of motion. Back: Comments: Tenderness over left-sided thoracic paraspinal muscles. Pain worse with movement. No rash. No CVA tenderness. No midline tenderness. No lateral or anterior rib tenderness. No abdominal tenderness. Skin: General: Skin is warm and dry. Neurological: Mental Status: He is alert. Assessment and Plan ASSESSMENT/PLAN: 1. Strain of thoracic region, initial encounter - ICD9: 847.1, ICD10: S29.019A -Suspect musculoskeletal strain, pain worse with movement and with palpation. No urinary symptoms. Low suspicion for UTI/pyelonephritis/kidney stone. -No injury. No midline or bony tenderness. Low suspicion for bony abnormality or fracture -Recommend rest, ice, NSAIDs. -Rx for Robaxin. Advised not to take this while driving. -Work note provided. -Advised if symptoms do not improve, follow-up with PCP. -If any urinary symptoms, fevers, shortness of breath, go to ER. Diagnosis and treatment plan were discussed and questions were answered to the patient's satisfaction. Pt acknowledged understanding of concepts and follow up plan. Specific signs and symptoms that would indicate the need for higher level of care were discussed in detail warranting prompt ER evaluation. FELICITAS Isaacs This note was created using [employer]. Subjective Amilcar Haile is a 27 year old male. Review of Systems Objective BP 138/90 Pulse 80 Temp 36.8 C (98.2 F) (Temporal) Resp 18 Wt 92 kg (202 lb 12.8 oz) SpO2 97% BMI 29.95 kg/m Physical Exam Assessment and Plan Problem List Items Addressed This Visit None Visit Diagnoses Strain of thoracic region, initial encounter - Primary documented in this encounter [facility] 09-30-2022 Instructions Cassie Lantigua PA - 09/30/2022 5:30 PM EDT Muscle relaxer as needed for pain. Do not drive while taking this medication as it may cause drowsiness. You may continue Aleve or naproxen as needed for pain. Ice the area. Follow-up with PCP if symptoms do not improve. documented in this encounter [facility] 08-04-2022 Note HNO ID: [id number] Author: Ame Pérez APRN.GENERAL TECHNICIAN Service: ? Author Type: Nurse Practitioner Type: Progress Notes Filed: 08/04/2022 10:09 PM Note Text: PSYC FOLLOW UP - PSYCHIATRIC PROGRESS NOTE DIAGNOSIS: Vitamin D deficiency Generalized Anxiety Disorder MDD, recurrent, moderate History of ADHD per patient GAF: -60-51 Moderate symptoms or moderate difficulty in social, occupational or school functioning. TREATMENT PLAN: Cross taper from Prozac to Pristiq due to lack of efficacy. Start Vitamin D supplement due to deficiency. Start Beason 3 fatty acid supplement to help with mood and anxiety symptoms. Continue Abilify and Buspar at the same dose. Collaborate with primary care team in patient's care. Follow up with this provider in November. Medication Update: Prozac 40 mg - take 1 capsule once daily for 1 week and then stop. Pristiq 25 mg ER - take 1 tablet once every morning with breakfast for 7 days and then increase the dose to 50 mg. Pristiq 50 mg ER - start after 25 mg dose is complete. Take 1 tablet once every morning with breakfast. Continue Abilify and Buspar at the same dose. Vitamin D 50, 000 units - take 1 capsule once a week for 3 months. Beason 3 fatty acid supplement 1000 mg - take 1 capsule once daily. The effects and side effects of all the medications were reviewed in detail with the patient. He is in agreement with the treatment plan and aware to reach out with any questions, concerns, or worsening of symptoms prior to the next appointment. Patient denies any involuntary movement related side effects. CC: Follow up for psychiatric medication management. With the patient consent, visit was performed virtually. I have communicated my name and active licensure. The patient's identity and physical location were verified at the time of this visit. Either the patient or their legal agency service representative has been informed of the risks and benefits of -- and alternatives to -- treatment through a remote evaluation and consents to proceed with the evaluation remotely. HPI: Amilcar Haile is a 26 year old Male with a history of MAYKEL, MDD, and ADHD presenting today for follow-up. Date of last visit: 07/14/2022 Plan from last visit: Decrease Prozac due to possible increase in fatigue and symptoms of apathy. Increase Abilify to help with mood related symptoms. Continue Buspar at the same dose. Follow up in 3 weeks. Today Valdemar shares that he is tired. His vitamin D level is low. In agreement to take a Vitamin D supplement. We also discussed incorporating Beason 3 fatty acid supplement to help with his mood, anxiety, and energy levels. He denies any changes in his physical health. He continues to struggle with anxiety and depression. Has tolerated Abilify without any side effects. Noticed a minor improvement in his mood with the increase in Abilify dose. He has not noticed any benefit from Prozac in managing his anxiety symptoms. Different treatment options were explored with the patient. He is in agreement try Pristiq. He continues to struggle with psychosocial stress regarding caring for his due to her health issues and his son. Interval Progress: Slightly improved Risks and benefits of the medication, including any black box warnings, were discussed with the patient. Social History: See HPI PATIENT DATA: Generalized Anxiety Disorder Scale (MAYKEL-7) MAYKEL - 7 SCORES 05/25/2022 07/14/2022 08/04/2022 MAYKEL-7 Score 6 19 17 (0-4) minimal anxiety, (5-9) mild anxiety, (10-14) moderate anxiety, (15-21) severe anxiety Patient Health Questionnaire (PHQ-9) PHQ-9 05/25/2022 07/14/2022 08/04/2022 Score 6 17 13 (0-4) minimal depression, (5-9) mild depression, (10-14) moderate depression, (15-19) moderately severe depression, (20-27) severe depression ROS: See HPI General: Negative for fever, malaise, unintentional weight loss HEENT: Negative for recent changes in vision or hearing, no nasal drainage Respiratory: Negative for cough, wheezing or SOB Cardiovascular: Negative for chest pain GI: Negative for nausea, vomiting, change in bowel habits MUSCULOSKELETAL: Negative for acute back or joint pain SKIN: Negative for rash NEURO: Negative for headaches, seizures, focal neurological deficits All other systems negative. VITAL SIGNS: BP Temp Pulse Resp SpO2 MENTAL STATUS EXAMINATION: Appearance: Appropriately groomed, appears stated age Behavior: Appropriately engaged Psychomotor: No psychomotor agitation Cognition Level of Consciousness: Awake and alert. No fluctuation in wakefulness. Orientation: Grossly oriented Memory: Intact Attention/Concentration: Good Fund of Knowledge: Able to demonstrate an awareness of current events. Mood: Anxious Affect: Congruent to mood Speech/Language: Appropriate tone, prosody, kamran, phonetics, and syntax Thought Form: Goal-directed. No loosening of associations. Thought Con (more content not included)... [facility] 08-04-2022 Instructions Ame Pérez APRN.CNP - 08/04/2022 4:05 PM EDT Vinay Mcmanus, It was good to talk with you today. Below is a summary of the plan that we discussed during your appointment for reference. Of course, if you have any questions or concerns do not hesitate to reach out to me via a message or call. Best, Ame Pérez APRN.CNP PLAN AND FOLLOW UP: YOU SHOULD SEEK IMMEDIATE MEDICAL ATTENTION AT THE NEAREST EMERGENCY DEPARTMENT OR BY CALLING 911, IF ANY OF THE FOLLOWING OCCURS: - New or worsening thoughts of harming yourself (suicidal thoughts) or others (homicidal thoughts) - Not feeling safe at home or worrying about your ability to remain safe at home If you are having thoughts of harming yourself or others, then you can: - Call the National Suicide Hotline at 8-355-UUAQLJC ( ) or 3-292-116-TALK (7172) - Text [facility]OPE to 120068 Medication Update: Prozac 40 mg - take 1 capsule once daily for 1 week and then stop. Pristiq 25 mg ER - take 1 tablet once every morning with breakfast for 7 days and then increase the dose to 50 mg. Pristiq 50 mg ER - start after 25 mg dose is complete. Take 1 tablet once every morning with breakfast. Continue Abilify and Buspar at the same dose. Vitamin D 50, 000 units - take 1 capsule once a week for 3 months. Beason 3 fatty acid supplement 1000 mg - take 1 capsule once daily. Next appointment: --Schedule in November. -- You may call the department appointment line at [phone] to schedule your appointment. -- Please call my nurse Ruthie at [phone] or send me a message in [email or web address] with any questions or concerns between appointments. documented in this encounter [facility] 08-04-2022 History of Present illness Narrative Images from the original note were not included. PSYC FOLLOW UP - PSYCHIATRIC PROGRESS NOTE DIAGNOSIS: Vitamin D deficiency Generalized Anxiety Disorder MDD, recurrent, moderate History of ADHD per patient GAF: -60-51 Moderate symptoms or moderate difficulty in social, occupational or school functioning. TREATMENT PLAN: Cross taper from Prozac to Pristiq due to lack of efficacy. Start Vitamin D supplement due to deficiency. Start Beason 3 fatty acid supplement to help with mood and anxiety symptoms. Continue Abilify and Buspar at the same dose. Collaborate with primary care team in patient's care. Follow up with this provider in November. Medication Update: Prozac 40 mg - take 1 capsule once daily for 1 week and then stop. Pristiq 25 mg ER - take 1 tablet once every morning with breakfast for 7 days and then increase the dose to 50 mg. Pristiq 50 mg ER - start after 25 mg dose is complete. Take 1 tablet once every morning with breakfast. Continue Abilify and Buspar at the same dose. Vitamin D 50, 000 units - take 1 capsule once a week for 3 months. Beason 3 fatty acid supplement 1000 mg - take 1 capsule once daily. The effects and side effects of all the medications were reviewed in detail with the patient. He is in agreement with the treatment plan and aware to reach out with any questions, concerns, or worsening of symptoms prior to the next appointment. Patient denies any involuntary movement related side effects. CC: Follow up for psychiatric medication management. With the patient consent, visit was performed virtually. I have communicated my name and active licensure. The patient's identity and physical location were verified at the time of this visit. Either the patient or their legal agency service representative has been informed of the risks and benefits of -- and alternatives to -- treatment through a remote evaluation and consents to proceed with the evaluation remotely. HPI: Amilcar Haile is a 26 year old Male with a history of MAYKEL, MDD, and ADHD presenting today for follow-up. Date of last visit: 07/14/2022 Plan from last visit: Decrease Prozac due to possible increase in fatigue and symptoms of apathy. Increase Abilify to help with mood related symptoms. Continue Buspar at the same dose. Follow up in 3 weeks. Today Valdemar shares that he is tired. His vitamin D level is low. In agreement to take a Vitamin D supplement. We also discussed incorporating Beason 3 fatty acid supplement to help with his mood, anxiety, and energy levels. He denies any changes in his physical health. He continues to struggle with anxiety and depression. Has tolerated Abilify without any side effects. Noticed a minor improvement in his mood with the increase in Abilify dose. He has not noticed any benefit from Prozac in managing his anxiety symptoms. Different treatment options were explored with the patient. He is in agreement try Pristiq. He continues to struggle with psychosocial stress regarding caring for his due to her health issues and his son. Interval Progress: Slightly improved Risks and benefits of the medication, including any black box warnings, were discussed with the patient. Social History: See HPI PATIENT DATA: Generalized Anxiety Disorder Scale (MAYKEL-7) MAYKEL - 7 SCORES 05/25/2022 07/14/2022 08/04/2022 MAYKEL-7 Score 6 19 17 (0-4) minimal anxiety, (5-9) mild anxiety, (10-14) moderate anxiety, (15-21) severe anxiety Patient Health Questionnaire (PHQ-9) PHQ-9 05/25/2022 07/14/2022 08/04/2022 Score 6 17 13 (0-4) minimal depression, (5-9) mild depression, (10-14) moderate depression, (15-19) moderately severe depression, (20-27) severe depression ROS: See HPI General: Negative for fever, malaise, unintentional weight loss HEENT: Negative for recent changes in vision or hearing, no nasal drainage Respiratory: Negative for cough, wheezing or SOB Cardiovascular: Negative for chest pain GI: Negative for nausea, vomiting, change in bowel habits MUSCULOSKELETAL: Negative for acute back or joint pain SKIN: Negative for rash NEURO: Negative for headaches, seizures, focal neurological deficits All other systems negative. VITAL SIGNS: BP Temp Pulse Resp SpO2 MENTAL STATUS EXAMINATION: Appearance: Appropriately groomed, appears stated age Behavior: Appropriately engaged Psychomotor: No psychomotor agitation Cognition Level of Consciousness: Awake and alert. No fluctuation in wakefulness. Orientation: Grossly oriented Memory: Intact Attention/Concentration: Good Fund of Knowledge: Able to demonstrate an awareness of current events. Mood: Anxious Affect: Congruent to mood Speech/Language: Appropriate tone, prosody, kamran, phonetics, and syntax Thought Form: Goal-directed. No loosening of associations. Thought Content: No delusions noted or endorsed. Perceptual Disturbances: Did not appear to respond to auditory stimuli. Safety: Suicidal Ideations: No suicidal ideation, intent or plan. Homicidal Ideations: No homicidal ideation, intent or plan. Insight: Appropriate Judgment: Appropriate I spent a total of 38 minutes on the date of the service which included preparing to see the patient, [id number] patient care, completing clinical documentation, and counseling and educating the patient/family/caregiver, ordering medications/labs, and communicating with other healthcare providers. Ame Pérez APRN.CNP August 04, 2022 3:37 PM This note was partially generated using [facility] voice recognition system. Note was reviewed for accuracy. There may be minor misspellings or grammar miscues with [facility] voice recognition. documented in this encounter [facility] 07-14-2022 Note HNO ID: [id number] Author: Ame Pérez APRN.CNP Service: ? Author Type: Nurse Practitioner Type: Progress Notes Filed: 07/14/2022 1:34 PM Note Text: PSYC FOLLOW UP - PSYCHIATRIC PROGRESS NOTE DIAGNOSIS: Fatigue Generalized Anxiety Disorder MDD, recurrent, moderate History of ADHD GAF: -60-51 Moderate symptoms or moderate difficulty in social, occupational or school functioning. TREATMENT PLAN: Decrease Prozac due to possible increase in fatigue and symptoms of apathy. Increase Abilify to help with mood related symptoms. Continue Buspar at the same dose. Follow up in 3 weeks. Medication Update: Prozac 40 mg - take 1 capsule once daily. Abilify 5 mg - take 1 tablet once daily. Continue Buspar at the same dose. The effects and side effects of all the medications were reviewed in detail with the patient and his . He is in agreement with the treatment plan and aware to reach out with any questions, concerns, or worsening of symptoms prior to the next appointment. He denies any involuntary movement related side effects. CC: Follow up regarding mood and anxiety With the patient consent, visit was performed virtually. I have communicated my name and active licensure. The patient's identity and physical location were verified at the time of this visit. Either the patient or their legal agency service representative has been informed of the risks and benefits of -- and alternatives to -- treatment through a remote evaluation and consents to proceed with the evaluation remotely. HPI: Amilcar Haile is a 26 year old Male with a history of MAYKEL, MDD, ADHD, and fatigue presenting today for follow-up. Date of last visit: 05/26/2022 Plan from last visit: Increase Prozac to address anxiety symptoms. Complete lab work to identify any organic causes of his fatigue. Discussed incorporating adequate protein in his diet. Continue Abilify and Buspar at the same dose. Discontinue Hydroxyzine due to lack of efficacy. Follow up in 4 to 6 weeks. Today Valdemar shares that he is okay. He has been feeling more depressed and anxious. He has not felt like doing anything. Sleeping a lot. Patient's is also present to provide collateral information. He has not been able to get the blood work completed as he forgot. He has tried a higher dose of prozac but has not noticed any improvement or worsening of symptoms. Shares that father and his girlfriend are harassing them. His has an injured ankle and son has swollen tonsil. He has been concerned about the added responsibilities. He also worries about their health. Some worsening of fatigue since the increase in Prozac dose per . Denies restlessness. His sleep is dependent on the baby's sleep and sometimes he has trouble falling asleep at night. Takes an hour nap with son and sometimes just falls asleep due to fatigue. Shares that he is eating okay but there are times when he does not have an appetite. Struggles with nausea and vomiting. Occasionally has diarrhea but no constipation. He has been eating consistently per . Has been incorporating more protein. Interval Progress: Slightly worse Risks and benefits of the medication, including any black box warnings, were discussed with the patient. Social History: See HPI PATIENT DATA: Generalized Anxiety Disorder Scale (MAYKEL-7) MAYKEL - 7 SCORES 02/24/2022 05/25/2022 07/14/2022 MAYKEL-7 Score 6 6 19 (0-4) minimal anxiety, (5-9) mild anxiety, (10-14) moderate anxiety, (15-21) severe anxiety Patient Health Questionnaire (PHQ-9) PHQ-9 02/24/2022 05/25/2022 07/14/2022 Score 4 6 17 (0-4) minimal depression, (5-9) mild depression, (10-14) moderate depression, (15-19) moderately severe depression, (20-27) severe depression ROS: See HPI General: Negative for fever, malaise, unintentional weight loss HEENT: Negative for recent changes in vision or hearing, no nasal drainage Respiratory: Negative for cough, wheezing or SOB Cardiovascular: Negative for chest pain GI: Negative for nausea, vomiting, change in bowel habits MUSCULOSKELETAL: Negative for acute back or joint pain SKIN: Negative for rash NEURO: Negative for headaches, seizures, focal neurological deficits All other systems negative. VITAL SIGNS: BP Temp Pulse Resp SpO2 MENTAL STATUS EXAMINATION: Appearance: Appropriately groomed, appears stated age Behavior: Appropriately engaged Psychomotor: No psychomotor agitation Cognition Level of Consciousness: Awake and alert. No fluctuation in wakefulness. Orientation: Grossly oriented Memory: Intact Attention/Concentration: Good Fund of Knowledge: Able to demonstrate an awareness of current events. Mood: Anxious, Depressed Affect: Congruent to mood Speech/Language: Appropriate tone, prosody, kamran, phonetics, and syntax Thought Form: Goal-directed. No loosening of associations. Thought Content: No delusions noted or endorsed. Perceptua (more content not included)... [facility] 07-14-2022 Instructions Ame Pérez APRN.CNP - 07/14/2022 1:33 PM EDT Vinay Mcmanus, It was good to talk with you today. Below is a summary of the plan that we discussed during your appointment for reference. Of course, if you have any questions or concerns do not hesitate to reach out to me via a message or call. Wale, Ame Pérez APRN.ORI PLAN AND FOLLOW UP: YOU SHOULD SEEK IMMEDIATE MEDICAL ATTENTION AT THE NEAREST EMERGENCY DEPARTMENT OR BY CALLING 911, IF ANY OF THE FOLLOWING OCCURS: - New or worsening thoughts of harming yourself (suicidal thoughts) or others (homicidal thoughts) - Not feeling safe at home or worrying about your ability to remain safe at home If you are having thoughts of harming yourself or others, then you can: - Call the National Suicide Hotline at 6-243-RLOPXNB ( ) or 6-437-107-TALK (4643) - Text [facility]OPE to 348350 Medication Update: Prozac 40 mg - take 1 capsule once daily. Abilify 5 mg - take 1 tablet once daily. Continue Buspar at the same dose. Next appointment: ThursdayAugust 04 at 3:30 pm virtual -- Please call my nurse Ruthie at [phone] or send me a message in [email or web address] with any questions or concerns between appointments. documented in this encounter [facility] 07-14-2022 History of Present illness Narrative Images from the original note were not included. PSYC FOLLOW UP - PSYCHIATRIC PROGRESS NOTE DIAGNOSIS: Fatigue Generalized Anxiety Disorder MDD, recurrent, moderate History of ADHD GAF: -60-51 Moderate symptoms or moderate difficulty in social, occupational or school functioning. TREATMENT PLAN: Decrease Prozac due to possible increase in fatigue and symptoms of apathy. Increase Abilify to help with mood related symptoms. Continue Buspar at the same dose. Follow up in 3 weeks. Medication Update: Prozac 40 mg - take 1 capsule once daily. Abilify 5 mg - take 1 tablet once daily. Continue Buspar at the same dose. The effects and side effects of all the medications were reviewed in detail with the patient and his . He is in agreement with the treatment plan and aware to reach out with any questions, concerns, or worsening of symptoms prior to the next appointment. He denies any involuntary movement related side effects. CC: Follow up regarding mood and anxiety With the patient consent, visit was performed virtually. I have communicated my name and active licensure. The patient's identity and physical location were verified at the time of this visit. Either the patient or their legal agency service representative has been informed of the risks and benefits of -- and alternatives to -- treatment through a remote evaluation and consents to proceed with the evaluation remotely. HPI: Amilcar Haile is a 26 year old Male with a history of MAYKEL, MDD, ADHD, and fatigue presenting today for follow-up. Date of last visit: 05/26/2022 Plan from last visit: Increase Prozac to address anxiety symptoms. Complete lab work to identify any organic causes of his fatigue. Discussed incorporating adequate protein in his diet. Continue Abilify and Buspar at the same dose. Discontinue Hydroxyzine due to lack of efficacy. Follow up in 4 to 6 weeks. Today Valdemar shares that he is okay. He has been feeling more depressed and anxious. He has not felt like doing anything. Sleeping a lot. Patient's is also present to provide collateral information. He has not been able to get the blood work completed as he forgot. He has tried a higher dose of prozac but has not noticed any improvement or worsening of symptoms. Shares that father and his girlfriend are harassing them. His has an injured ankle and son has swollen tonsil. He has been concerned about the added responsibilities. He also worries about their health. Some worsening of fatigue since the increase in Prozac dose per . Denies restlessness. His sleep is dependent on the baby's sleep and sometimes he has trouble falling asleep at night. Takes an hour nap with son and sometimes just falls asleep due to fatigue. Shares that he is eating okay but there are times when he does not have an appetite. Struggles with nausea and vomiting. Occasionally has diarrhea but no constipation. He has been eating consistently per . Has been incorporating more protein. Interval Progress: Slightly worse Risks and benefits of the medication, including any black box warnings, were discussed with the patient. Social History: See HPI PATIENT DATA: Generalized Anxiety Disorder Scale (MAYKEL-7) MAYKEL - 7 SCORES 02/24/2022 05/25/2022 07/14/2022 MAYKEL-7 Score 6 6 19 (0-4) minimal anxiety, (5-9) mild anxiety, (10-14) moderate anxiety, (15-21) severe anxiety Patient Health Questionnaire (PHQ-9) PHQ-9 02/24/2022 05/25/2022 07/14/2022 Score 4 6 17 (0-4) minimal depression, (5-9) mild depression, (10-14) moderate depression, (15-19) moderately severe depression, (20-27) severe depression ROS: See HPI General: Negative for fever, malaise, unintentional weight loss HEENT: Negative for recent changes in vision or hearing, no nasal drainage Respiratory: Negative for cough, wheezing or SOB Cardiovascular: Negative for chest pain GI: Negative for nausea, vomiting, change in bowel habits MUSCULOSKELETAL: Negative for acute back or joint pain SKIN: Negative for rash NEURO: Negative for headaches, seizures, focal neurological deficits All other systems negative. VITAL SIGNS: BP Temp Pulse Resp SpO2 MENTAL STATUS EXAMINATION: Appearance: Appropriately groomed, appears stated age Behavior: Appropriately engaged Psychomotor: No psychomotor agitation Cognition Level of Consciousness: Awake and alert. No fluctuation in wakefulness. Orientation: Grossly oriented Memory: Intact Attention/Concentration: Good Fund of Knowledge: Able to demonstrate an awareness of current events. Mood: Anxious, Depressed Affect: Congruent to mood Speech/Language: Appropriate tone, prosody, kamran, phonetics, and syntax Thought Form: Goal-directed. No loosening of associations. Thought Content: No delusions noted or endorsed. Perceptual Disturbances: Did not appear to respond to auditory stimuli. Safety: Suicidal Ideations: No suicidal ideation, intent or plan. Homicidal Ideations: No homicidal ideation, intent or plan. Insight: Appropriate Judgment: Appropriate I spent a total of 28 minutes on the date of the service which included preparing to see the patient, [id number] patient care, completing clinical documentation, and counseling and educating the patient/family/caregiver, ordering medications/labs. Ame Pérez APRN.CNP July 14, 2022 1:03 PM This note was partially generated using [facility] voice recognition system. Note was reviewed for accuracy. There may be minor misspellings or grammar miscues with [facility] voice recognition. documented in this encounter [facility] 06-22-2022 Note HNO ID: [id number] Author: Capo Skinner APRN.CNP Service: ? Author Type: Nurse Practitioner Type: Progress Notes Filed: 06/22/2022 9:47 AM Note Text: Subjective HPI Nontoxic-appearing male presents urgent care chief complaint nausea vomiting diarrhea. Duration of symptoms 3 days. Associated symptoms listed above. Patient states significant other and child has similar signs and symptoms. Feels like symptoms are gradually improving. Has not used any OTC medications. No pain. 2 episodes of vomiting today. Approximately 10-12 episodes of vomiting yesterday. 1 episode of loose stool. No blood in vomit or stool. Denies any fever body aches chills cough chest pain shortness of breath or rashes. Past medical history prescription medication use allergies reviewed. .Patient presents with: Vomiting: With diarrhea x 3 days PAST MEDICAL HISTORY Diagnosis Date Attention deficit disorder with hyperactivity(314.01) 12/28/2007 Depression Esophageal reflux Generalized anxiety disorder Migraine with aura Seizures (HCC) Unspecified asthma(493.90) PAST SURGICAL HISTORY Procedure Laterality Date COLONOSCOPY 03/27/2022 EGD 03/27/2022 PAST SURGICAL HISTORY OF TANDA ALLERGIES Environmental: Cats. Dogs, Horses [Other]; Rondec [Brompheniramine-Pseudoephedrin]; and Sympathomimetic Agents MEDICATIONS FLUoxetine (PROZAC) 40 mg capsule Take 1 capsule by mouth once daily. Take with 20 mg dose. FLUoxetine (PROZAC) 20 mg capsule Take 1 capsule by mouth once daily. ARIPiprazole (ABILIFY) 2 mg tablet Take 1 tablet by mouth once daily. busPIRone (BUSPAR) 15 mg tablet Take 1 tablet by mouth three times daily. omeprazole (PRILOSEC) 40 mg capsule Take 1 capsule by mouth once daily. albuterol HFA (PROVENTIL HFA, VENTOLIN HFA) 90 mcg/actuation inhaler Inhale 2 Puffs as instructed every 6 hours as needed. midodrine (PROAMITINE) 5 mg tablet Take 1 tablet by mouth three times daily. SUMAtriptan (IMITREX) 50 mg tablet Take 1 tablet by mouth as directed. TAKE AT ONSET OF MIGRAINE. MAY REPEAT X 1 IF NEEDED. fluticasone (FLONASE) 50 mcg/actuation nasal spray Use 2 Sprays in each nostril once daily. Rinse mouth after use. diphenoxylate-atropine (LOMOTIL) 2.5-0.025 mg per tablet Take 1 tablet by mouth four times daily as needed for up to 30 days. FAMILY HISTORY Problem Relation Age of Onset Anxiety disorder Mother Depression Mother Asthma Father other (adhd) Father other (encephalitis) Maternal Grandfather other (ms) Maternal Grandfather other (cirrhosis) Maternal Grandfather Heart Other MOMS SIDE other (cholesterol) Other dads side Social History Tobacco Use Smoking status: Never Smokeless tobacco: Never Tobacco comments: outside Vaping Use Vaping Use: Never used Substance Use Topics Alcohol use: Not Currently Drug use: Not Currently Types: Marijuana BP 126/82 Pulse 109 Temp 36.8 ?C (98.3 ?F) Resp 16 Wt 88.9 kg (196 lb) SpO2 97% BMI 28.94 kg/m? Hr 86 Review of Systems Constitutional: Negative for chills, fever and malaise/fatigue. HENT: Negative for congestion, ear discharge, ear pain, sinus pain and sore throat. Eyes: Negative for blurred vision, pain, discharge and redness. Respiratory: Negative for cough, hemoptysis, sputum production, shortness of breath, wheezing and stridor. Cardiovascular: Negative for chest pain. Gastrointestinal: Positive for abdominal pain, diarrhea, nausea and vomiting. Musculoskeletal: Negative for myalgias. Skin: Negative for itching and rash. Neurological: Negative for dizziness and headaches. Objective Physical Exam Constitutional: General: He is not in acute distress. Appearance: He is not diaphoretic. HENT: Head: Normocephalic. Nose: Nose normal. Mouth/Throat: Mouth: Mucous membranes are moist. Pharynx: Oropharynx is clear. No oropharyngeal exudate or posterior oropharyngeal erythema. Eyes: Conjunctiva/sclera: Conjunctivae normal. Pupils: Pupils are equal, round, and reactive to light. Cardiovascular: Rate and Rhythm: Normal rate and regular rhythm. Heart sounds: Normal heart sounds. Pulmonary: Effort: Pulmonary effort is normal. No tachypnea, accessory muscle usage or respiratory distress. Breath sounds: Normal breath sounds. No stridor. No wheezing, rhonchi or rales. Abdominal: Palpations: Abdomen is soft. Tenderness: There is no abdominal tenderness. There is no right CVA tenderness, left CVA tenderness, guarding or rebound. Musculoskeletal: Cervical back: Normal range of motion and neck supple. No rigidity or tenderness. Lymphadenopathy: Cervical: No cervical adenopathy. Skin: General: Skin is warm and dry. Neurological: Mental Status: He is alert and oriented to person, place, and time. ASSESSMENT/PLAN: 1. Viral gastroenteritis - ICD9: 008.8, ICD10: A08.4 No evidence of acute abdomen. Hemodynamically stable. Symptoms are gradually improv (more content not included)... [facility] 06-22-2022 Instructions Capo Skinner APRN.[facility] - 06/22/2022 9:33 AM EDT GASTROENTERITIS DESCRIPTION: Irritation and infection of the digestive tract that can often cause sudden and sometimes violent upsets. Gastroenteritis may be confused with spastic colitis. It affects all ages but is most severe in young children (1 to 5 years) and adults over 60. FREQUENT SIGNS AND SYMPTOMS: -Nausea that sometimes causes vomiting. -Diarrhea that ranges from 2 or 3 loose stools to many watery stools. -Abdominal cramps, pain or tenderness. -Appetite loss. -Fever. -Weakness. CAUSES: -A variety of viruses, bacteria or parasites that have contaminated food or water. -Food poisoning. -Use of harsh laxatives. -Change in bacteria that normally live in the intestinal tract. -Chemical toxins in certain plants, seafood, or contaminated food. -Heavy metal poisoning. RISK INCREASES WITH: -Adults over 60. -Newborns and infants. -Improper diet. -Excess alcohol consumption. -Use of drugs, such as aspirin, nonsteroidal anti-inflammatories, antibiotics, laxatives, cortisone or caffeine. -Travel to foreign countries. PREVENTIVE MEASURES: -Wash hands frequently if you or someone around you has gastroenteritis. -Avoid as many causes and risks mentioned above as possible. -Take care with food preparation. TREATMENT: GENERAL MEASURES: -Diagnostic tests may include laboratory studies of blood and stool. -Treatment is usually supportive (rest, fluids). -Mild cases are usually treated at home. -It is not necessary to isolate persons with gastroenteritis. -Hospitalization, if dehydration is severe. MEDICATIONS: -Medicine is usually not necessary. If gastroenteritis is severe or prolonged, you may be prescribed antinausea and antidiarrheal medication. -Certain bacteria and parasites may require specific antibiotic treatment. ACTIVITY: Rest in bed until nausea, vomiting, diarrhea and fever are gone. DIET: -Suck ice chips or drink small amounts of clear fluids frequently. -After diarrhea and vomiting stop, drink small amounts of clear liquids, such as tea, flat nic alicia or lemon-venetie soda, broth and gelatin. -If liquids are tolerated for 12 hours, eat small amounts of soft foods, such as cooked cereal, rice, eggs, custard, baked potato and yogurt. -If soft food is tolerated for 2 - 3 days, gradually return to a normal diet. Avoid alcohol, spicy food (pizza, spaghetti, onions), gravy raw vegetables, raw fruit, salad dressing, cream soup, coffee and milk for several days. NOTIFY OFFICE: -Symptoms of gastroenteritis persist longer than 2 days. -The following occur during treatment: Mucus or blood in the stool. Fever of 101 degrees F (38.3 degrees C) or higher. Abdominal swelling. Severe pain in the abdomen or rectum especially pain that begins in the center and moves to the lower right side. -Vomiting and diarrhea recur after treatment. -Signs of dehydration, such as dry mouth, wrinkled skin, excess thirst or decreased urination, develop. documented in this encounter [facility] 06-22-2022 History of Present illness Narrative Subjective HPI Nontoxic-appearing male presents urgent care chief complaint nausea vomiting diarrhea. Duration of symptoms 3 days. Associated symptoms listed above. Patient states significant other and child has similar signs and symptoms. Feels like symptoms are gradually improving. Has not used any OTC medications. No pain. 2 episodes of vomiting today. Approximately 10-12 episodes of vomiting yesterday. 1 episode of loose stool. No blood in vomit or stool. Denies any fever body aches chills cough chest pain shortness of breath or rashes. Past medical history prescription medication use allergies reviewed. .Patient presents with: Vomiting: With diarrhea x 3 days PAST MEDICAL HISTORY Diagnosis Date Attention deficit disorder with hyperactivity(314.01) 12/28/2007 Depression Esophageal reflux Generalized anxiety disorder Migraine with aura Seizures (HCC) Unspecified asthma(493.90) PAST SURGICAL HISTORY Procedure Laterality Date COLONOSCOPY 03/27/2022 EGD 03/27/2022 PAST SURGICAL HISTORY OF T&A ALLERGIES Environmental: Cats. Dogs, Horses [Other]; Rondec [Brompheniramine-Pseudoephedrin]; and Sympathomimetic Agents MEDICATIONS FLUoxetine (PROZAC) 40 mg capsule Take 1 capsule by mouth once daily. Take with 20 mg dose. FLUoxetine (PROZAC) 20 mg capsule Take 1 capsule by mouth once daily. ARIPiprazole (ABILIFY) 2 mg tablet Take 1 tablet by mouth once daily. busPIRone (BUSPAR) 15 mg tablet Take 1 tablet by mouth three times daily. omeprazole (PRILOSEC) 40 mg capsule Take 1 capsule by mouth once daily. albuterol HFA (PROVENTIL HFA, VENTOLIN HFA) 90 mcg/actuation inhaler Inhale 2 Puffs as instructed every 6 hours as needed. midodrine (PROAMITINE) 5 mg tablet Take 1 tablet by mouth three times daily. SUMAtriptan (IMITREX) 50 mg tablet Take 1 tablet by mouth as directed. TAKE AT ONSET OF MIGRAINE. MAY REPEAT X 1 IF NEEDED. fluticasone (FLONASE) 50 mcg/actuation nasal spray Use 2 Sprays in each nostril once daily. Rinse mouth after use. diphenoxylate-atropine (LOMOTIL) 2.5-0.025 mg per tablet Take 1 tablet by mouth four times daily as needed for up to 30 days. FAMILY HISTORY Problem Relation Age of Onset Anxiety disorder Mother Depression Mother Asthma Father other (adhd) Father other (encephalitis) Maternal Grandfather other (ms) Maternal Grandfather other (cirrhosis) Maternal Grandfather Heart Other MOMS SIDE other (cholesterol) Other dads side Social History Tobacco Use Smoking status: Never Smokeless tobacco: Never Tobacco comments: outside Vaping Use Vaping Use: Never used Substance Use Topics Alcohol use: Not Currently Drug use: Not Currently Types: Marijuana BP 126/82 Pulse 109 Temp 36.8 C (98.3 F) Resp 16 Wt 88.9 kg (196 lb) SpO2 97% BMI 28.94 kg/m Hr 86 Review of Systems Constitutional: Negative for chills, fever and malaise/fatigue. HENT: Negative for congestion, ear discharge, ear pain, sinus pain and sore throat. Eyes: Negative for blurred vision, pain, discharge and redness. Respiratory: Negative for cough, hemoptysis, sputum production, shortness of breath, wheezing and stridor. Cardiovascular: Negative for chest pain. Gastrointestinal: Positive for abdominal pain, diarrhea, nausea and vomiting. Musculoskeletal: Negative for myalgias. Skin: Negative for itching and rash. Neurological: Negative for dizziness and headaches. Objective Physical Exam Constitutional: General: He is not in acute distress. Appearance: He is not diaphoretic. HENT: Head: Normocephalic. Nose: Nose normal. Mouth/Throat: Mouth: Mucous membranes are moist. Pharynx: Oropharynx is clear. No oropharyngeal exudate or posterior oropharyngeal erythema. Eyes: Conjunctiva/sclera: Conjunctivae normal. Pupils: Pupils are equal, round, and reactive to light. Cardiovascular: Rate and Rhythm: Normal rate and regular rhythm. Heart sounds: Normal heart sounds. Pulmonary: Effort: Pulmonary effort is normal. No tachypnea, accessory muscle usage or respiratory distress. Breath sounds: Normal breath sounds. No stridor. No wheezing, rhonchi or rales. Abdominal: Palpations: Abdomen is soft. Tenderness: There is no abdominal tenderness. There is no right CVA tenderness, left CVA tenderness, guarding or rebound. Musculoskeletal: Cervical back: Normal range of motion and neck supple. No rigidity or tenderness. Lymphadenopathy: Cervical: No cervical adenopathy. Skin: General: Skin is warm and dry. Neurological: Mental Status: He is alert and oriented to person, place, and time. ASSESSMENT/PLAN: 1. Viral gastroenteritis - ICD9: 008.8, ICD10: A08.4 No evidence of acute abdomen. Hemodynamically stable. Symptoms are gradually improving. No evidence of bacterial infection. No evidence of dehydration. Tolerating p.o. fluids and food. Patient was educated on supportive therapies. Patient will follow up with primary care provider as needed. Patient was instructed to immediately proceed to emergency room for any new, worsening, or symptoms lasting longer than anticipated. The patient's clinical presentation is otherwise unremarkable at this time. Based on exam and clinical finding, the patient is stable for discharge. Plan of care was discussed with patient. Patient verbalizes understanding and agrees to plan of care. This note was generated using [facility] software. It may contain errors in wording, punctuation, or spelling. Capo Skinner APRN.ORI documented in this encounter [facility] 05-26-2022 Note HNO ID: [id number] Author: Ame Pérez APRN.CNP Service: ? Author Type: Nurse Practitioner Type: Progress Notes Filed: 05/30/2022 10:03 PM Note Text: PSYC FOLLOW UP - PSYCHIATRIC PROGRESS NOTE DIAGNOSIS: Fatigue Generalized Anxiety Disorder MDD, recurrent, in partial remission History of ADHD GAF: -60-51 Moderate symptoms or moderate difficulty in social, occupational or school functioning. TREATMENT PLAN: Increase Prozac to address anxiety symptoms. Complete lab work to identify any organic causes of his fatigue. Discussed incorporating adequate protein in his diet. Continue Abilify and Buspar at the same dose. Discontinue Hydroxyzine due to lack of efficacy. Follow up in 4 to 6 weeks. Medication Update: Prozac 40 mg - take 1 capsule once daily; take with 20 mg dose. Prozac 20 mg - take 1 capsule once daily; take with 40 mg dose. Continue Buspar and Abilify at the same dose. The effects and side effects of all his medications were reviewed in detail with the patient. He denies any involuntary movement related side effects. Patient is in agreement with the treatment plan and aware to reach out with any questions, concerns, or worsening of symptoms prior to the next appointment. CC: Follow up regarding mood and anxiety With the patient consent, visit was performed virtually. I have communicated my name and active licensure. The patient's identity and physical location were verified at the time of this visit. Either the patient or their legal agency service representative has been informed of the risks and benefits of -- and alternatives to -- treatment through a remote evaluation and consents to proceed with the evaluation remotely. HPI: Amilcar Haile is a 26 year old Male with a history of MAYKEL, ADHD,and MDD presenting today for follow-up. Date of last visit: 02/24/2022 Plan from last visit: Continue Prozac, Abilify and Buspar at the same dose. Consider decrease in Prozac if GI symptoms don't improve. Patient has a history of struggle with GI symptoms and does not think that they became worse with Prozac. Does not wish to change dose at this time. Follow up in 2 to 3 months. Today Valdemar shares that he continues to struggle with GI issues. He has been diagnosed with hiatal hernia. He has been prescribed medications but they have not helped. He has noticed some improvement in his diarrhea. Continues to struggle with anxiety at times but denies feelings of depression. He feels that anxiety episodes are triggered out of the blue. He has worries related to his who has been struggling with health issues. He experiences a tightening in his chest. He does have a history of asthma but this feeling is not as severe. He is asking about an as needed medication as he has noticed a lack of efficacy with Vistaril even at 50 mg dose. He is not using any substances currently. He is concerned about fatigue. His son is going through some ear problems and will be getting some ear tubes. He is 20 minutes. He is not sleeping well through the night. Interval Progress: Slightly improved Risks and benefits of the medication, including any black box warnings, were discussed with the patient. Social History: See HPI PATIENT DATA: Generalized Anxiety Disorder Scale (MAYKEL-7) MAYKEL - 7 SCORES 01/17/2022 02/24/2022 05/25/2022 MAYKEL-7 Score 6 6 6 (0-4) minimal anxiety, (5-9) mild anxiety, (10-14) moderate anxiety, (15-21) severe anxiety Patient Health Questionnaire (PHQ-9) PHQ-9 01/17/2022 02/24/2022 05/25/2022 Score 6 4 6 (0-4) minimal depression, (5-9) mild depression, (10-14) moderate depression, (15-19) moderately severe depression, (20-27) severe depression ROS: See HPI General: Negative for fever, malaise, unintentional weight loss HEENT: Negative for recent changes in vision or hearing, no nasal drainage Respiratory: Negative for cough, wheezing or SOB Cardiovascular: Negative for chest pain GI: Negative for nausea, vomiting, change in bowel habits MUSCULOSKELETAL: Negative for acute back or joint pain SKIN: Negative for rash NEURO: Negative for headaches, seizures, focal neurological deficits All other systems negative. VITAL SIGNS: BP Temp Pulse Resp SpO2 MENTAL STATUS EXAMINATION: Appearance: Appropriately groomed, appears stated age Behavior: Appropriately engaged Psychomotor: No psychomotor agitation Cognition Level of Consciousness: Awake and alert. No fluctuation in wakefulness. Orientation: Grossly oriented Memory: Intact Attention/Concentration: Good Fund of Knowledge: Able to demonstrate an awareness of current events. Mood: Anxious Affect: Congruent to mood Speech/Language: Appropriate tone, prosody, kamran, phonetics, and syntax Thought Form: Goal-directed. No loosening of associations. Thought Content: No delusions noted or endorsed. Perceptual Disturbances: Did not appear to respond to auditory stimuli. Safety: Nina (more content not included)... [facility] 05-26-2022 Instructions Ame Pérez APRN.[facility] - 05/26/2022 11:06 AM EST Vinay Mcmanus, It was good to talk with you today. Below is a summary of the plan that we discussed during your appointment for reference. Of course, if you have any questions or concerns do not hesitate to reach out to me via a message or call. Ame Echevarria APRN.CNP PLAN AND FOLLOW UP: YOU SHOULD SEEK IMMEDIATE MEDICAL ATTENTION AT THE NEAREST EMERGENCY DEPARTMENT OR BY CALLING 911, IF ANY OF THE FOLLOWING OCCURS: - New or worsening thoughts of harming yourself (suicidal thoughts) or others (homicidal thoughts) - Not feeling safe at home or worrying about your ability to remain safe at home If you are having thoughts of harming yourself or others, then you can: - Call the National Suicide Hotline at 7-400-YJYNPMB ( ) or 1-007-427-TALK (5164) - Text 4UDWK to 934958 Medication Update: Prozac 40 mg - take 1 capsule once daily; take with 20 mg dose. Prozac 20 mg - take 1 capsule once daily; take with 40 mg dose. Continue Buspar and Abilify at the same dose. Lab work: Complete lab work prior to the next visit. Other: Work on tracking your anxiety symptoms. Next appointment: --Schedule in 4 to 6 weeks or sooner if needed -- You may call the department appointment line at [phone] to schedule your appointment. -- Please call my nurse Ruthie at [phone] or send me a message in [email or web address] with any questions or concerns between appointments. documented in this encounter [facility] 05-26-2022 History of Present illness Narrative Images from the original note were not included. PSYC FOLLOW UP - PSYCHIATRIC PROGRESS NOTE DIAGNOSIS: Fatigue Generalized Anxiety Disorder MDD, recurrent, in partial remission History of ADHD GAF: -60-51 Moderate symptoms or moderate difficulty in social, occupational or school functioning. TREATMENT PLAN: Increase Prozac to address anxiety symptoms. Complete lab work to identify any organic causes of his fatigue. Discussed incorporating adequate protein in his diet. Continue Abilify and Buspar at the same dose. Discontinue Hydroxyzine due to lack of efficacy. Follow up in 4 to 6 weeks. Medication Update: Prozac 40 mg - take 1 capsule once daily; take with 20 mg dose. Prozac 20 mg - take 1 capsule once daily; take with 40 mg dose. Continue Buspar and Abilify at the same dose. The effects and side effects of all his medications were reviewed in detail with the patient. He denies any involuntary movement related side effects. Patient is in agreement with the treatment plan and aware to reach out with any questions, concerns, or worsening of symptoms prior to the next appointment. CC: Follow up regarding mood and anxiety With the patient consent, visit was performed virtually. I have communicated my name and active licensure. The patient's identity and physical location were verified at the time of this visit. Either the patient or their legal agency service representative has been informed of the risks and benefits of -- and alternatives to -- treatment through a remote evaluation and consents to proceed with the evaluation remotely. HPI: Amilcar Haile is a 26 year old Male with a history of MAYKEL, ADHD,and MDD presenting today for follow-up. Date of last visit: 02/24/2022 Plan from last visit: Continue Prozac, Abilify and Buspar at the same dose. Consider decrease in Prozac if GI symptoms don't improve. Patient has a history of struggle with GI symptoms and does not think that they became worse with Prozac. Does not wish to change dose at this time. Follow up in 2 to 3 months. Today Valdemar shares that he continues to struggle with GI issues. He has been diagnosed with hiatal hernia. He has been prescribed medications but they have not helped. He has noticed some improvement in his diarrhea. Continues to struggle with anxiety at times but denies feelings of depression. He feels that anxiety episodes are triggered out of the blue. He has worries related to his who has been struggling with health issues. He experiences a tightening in his chest. He does have a history of asthma but this feeling is not as severe. He is asking about an as needed medication as he has noticed a lack of efficacy with Vistaril even at 50 mg dose. He is not using any substances currently. He is concerned about fatigue. His son is going through some ear problems and will be getting some ear tubes. He is 20 minutes. He is not sleeping well through the night. Interval Progress: Slightly improved Risks and benefits of the medication, including any black box warnings, were discussed with the patient. Social History: See HPI PATIENT DATA: Generalized Anxiety Disorder Scale (MAYKEL-7) MAYKEL - 7 SCORES 01/17/2022 02/24/2022 05/25/2022 MAYKEL-7 Score 6 6 6 (0-4) minimal anxiety, (5-9) mild anxiety, (10-14) moderate anxiety, (15-21) severe anxiety Patient Health Questionnaire (PHQ-9) PHQ-9 01/17/2022 02/24/2022 05/25/2022 Score 6 4 6 (0-4) minimal depression, (5-9) mild depression, (10-14) moderate depression, (15-19) moderately severe depression, (20-27) severe depression ROS: See HPI General: Negative for fever, malaise, unintentional weight loss HEENT: Negative for recent changes in vision or hearing, no nasal drainage Respiratory: Negative for cough, wheezing or SOB Cardiovascular: Negative for chest pain GI: Negative for nausea, vomiting, change in bowel habits MUSCULOSKELETAL: Negative for acute back or joint pain SKIN: Negative for rash NEURO: Negative for headaches, seizures, focal neurological deficits All other systems negative. VITAL SIGNS: BP Temp Pulse Resp SpO2 MENTAL STATUS EXAMINATION: Appearance: Appropriately groomed, appears stated age Behavior: Appropriately engaged Psychomotor: No psychomotor agitation Cognition Level of Consciousness: Awake and alert. No fluctuation in wakefulness. Orientation: Grossly oriented Memory: Intact Attention/Concentration: Good Fund of Knowledge: Able to demonstrate an awareness of current events. Mood: Anxious Affect: Congruent to mood Speech/Language: Appropriate tone, prosody, kamran, phonetics, and syntax Thought Form: Goal-directed. No loosening of associations. Thought Content: No delusions noted or endorsed. Perceptual Disturbances: Did not appear to respond to auditory stimuli. Safety: Suicidal Ideations: No suicidal ideation, intent or plan. Homicidal Ideations: No homicidal ideation, intent or plan. Insight: Appropriate Judgment: Appropriate I spent a total of 38 minutes on the date of the service which included preparing to see the patient, [id number] patient care, completing clinical documentation, and counseling and educating the patient/family/caregiver, ordering medications/labs. Ame Pérez APRN.[facility] May 26, 2022 10:28 AM This note was partially generated using [facility] voice recognition system. Note was reviewed for accuracy. There may be minor misspellings or grammar miscues with [facility] voice recognition. documented in this encounter [facility] 04-04-2022 Note HNO ID: [id number] Author: Julio Hogan PA-C Service: ? Author Type: Physician Fermentation Manager Type: Progress Notes Filed: 04/10/2022 4:03 PM Note Text: In lieu of an in-person visit due to COVID-19 concerns, a distance health visit was performed on the patient. Patient is aware that I am not fully able to assess symptoms and do a full physical examination including vital signs assessment at this time. Patient consents to this encounter. FOLLOW UP VISIT - ENDOSCOPY NAME: Amilcar Lu [facility] NO.: [id number] DATE OF SERVICE: 04/04/2022 : 1995 REFERRING PHYSICIAN: Yosef Israel MD Amilcar is a patient I am following with Dr. Gordon for change in bowel habits, nausea and diarrhea. Dr. Gordon performed upper and lower endoscopy on 03/27/22. The patient was found to have a small hiatal hernia with small sliding component, minimally irregular GE junction, and hemorrhoids. Colon appeared normal. Random biopsies were taken based on patient complaints. Pathology demonstrated: FINAL DIAGNOSIS A. Duodenum, second portion, biopsy: - Duodenal mucosa with no significant histopathologic changes. B. Stomach, antrum, biopsy: - Mild chronic gastritis. C. Esophagogastric junction, biopsy: - Squamous mucosa with features suggestive of reflux esophagitis. D. Colon, random biopsy: - Colonic mucosa with no significant histopathologic changes. The patient notes no new complaints since the procedure. Bowel habits have been getting more regular. Assessment IMPRESSION: mild chronic gastritis, GERD with esophagitis. Small hiatal hernia PLAN: The operative findings and pathology report were reviewed with the patient, and the patient has had the opportunity to ask questions and have questions answered. If the patient notes any problems or changes in bowel function, the patient should contact me immediately. Otherwise I recommend follow up endoscopy as per normal screening guidelines Reviewed dietary and lifestyle modifications for GERD and gastritis. Recommend continuing PPI for another 1-2 months Recommend fiber, fluids, probiotic Patient verbalized understanding of all above and agreed with the plan Diagnoses: (K29.30) Chronic superficial gastritis without bleeding (primary encounter diagnosis) (K44.9) Hiatal hernia (K21.00) Gastroesophageal reflux disease with esophagitis without hemorrhage I spent a total of 22 minutes on the date of the service which included preparing to see the patient, completing clinical documentation, obtaining and/or reviewing separately obtained history, counseling and educating the patient/family/caregiver, ordering medications, tests, or procedures, communicating with other HCPs (not separately reported), and independently interpreting results (not separately reported). Julio Hogan PA-C [facility] 04-04-2022 History of Present illness Narrative In lieu of an in-person visit due to COVID-19 concerns, a distance health visit was performed on the patient. Patient is aware that I am not fully able to assess symptoms and do a full physical examination including vital signs assessment at this time. Patient consents to this encounter. FOLLOW UP VISIT - ENDOSCOPY NAME: Amilcar Lu [facility] NO.: [id number] DATE OF SERVICE: 04/04/2022 : 1995 REFERRING PHYSICIAN: Yosef Israel MD Amilcar is a patient I am following with Dr. Gordon for change in bowel habits, nausea and diarrhea. Dr. Gordon performed upper and lower endoscopy on 03/27/22. The patient was found to have a small hiatal hernia with small sliding component, minimally irregular GE junction, and hemorrhoids. Colon appeared normal. Random biopsies were taken based on patient complaints. Pathology demonstrated: FINAL DIAGNOSIS A. Duodenum, second portion, biopsy: - Duodenal mucosa with no significant histopathologic changes. B. Stomach, antrum, biopsy: - Mild chronic gastritis. C. Esophagogastric junction, biopsy: - Squamous mucosa with features suggestive of reflux esophagitis. D. Colon, random biopsy: - Colonic mucosa with no significant histopathologic changes. The patient notes no new complaints since the procedure. Bowel habits have been getting more regular. Assessment IMPRESSION: mild chronic gastritis, GERD with esophagitis. Small hiatal hernia PLAN: The operative findings and pathology report were reviewed with the patient, and the patient has had the opportunity to ask questions and have questions answered. If the patient notes any problems or changes in bowel function, the patient should contact me immediately. Otherwise I recommend follow up endoscopy as per normal screening guidelines Reviewed dietary and lifestyle modifications for GERD and gastritis. Recommend continuing PPI for another 1-2 months Recommend fiber, fluids, probiotic Patient verbalized understanding of all above and agreed with the plan Diagnoses: (K29.30) Chronic superficial gastritis without bleeding (primary encounter diagnosis) (K44.9) Hiatal hernia (K21.00) Gastroesophageal reflux disease with esophagitis without hemorrhage I spent a total of 22 minutes on the date of the service which included preparing to see the patient, completing clinical documentation, obtaining and/or reviewing separately obtained history, counseling and educating the patient/family/caregiver, ordering medications, tests, or procedures, communicating with other HCPs (not separately reported), and independently interpreting results (not separately reported). Julio Hogan PA-C documented in this encounter [facility] 03-28-2022 Miscellaneous Notes Patient called stating since colonoscopy 03/27/22 he is experiencing bleeding from site, pain rating 5. Advised patient that symptoms experienced are normal post colonoscopy. Advised patient to continue to drink water, move/walk to relieve pain. Advised patient bleeding is normal due to multiple specimens taken, if patient starts to experience blood clots or bleeding after Thursday or if symptoms worsen to visit an ED. Patient verbalized understanding, no further questions. Marilynn Singh LPN documented in this encounter [facility] 03-27-2022 Nurse Note Other: Nurse called and spoke with patient. Patient states he has redness and bleeding in anal area and complains of pain 3/10. Patient states he did call Dr. Gordon's office and was told this is normal. Patient does have a post-op visit scheduled in a week. Instructed patient if symptoms become worse to contact Dr. Gordon's office or go to the emergency room. Patient verbalized understanding. Patient education completed. Patient ready for procedure. documented in this encounter [facility] 03-27-2022 Surgical operation note [facility] - Operative Report - AMILCAR Singh : 1995 AGE: 26. SEX: M PATIENT TYPE: O HOSP SVC: LOCATION: ATTENDING PHYSICIAN: Nichelle Ward MD CSN NUMBER: [id number] DATE OF SURGERY/PROCEDURE: 03/27/2022 INCISION/PROCEDURE START TIME: 1135 INCISION CLOSE/PROCEDURE END TIME: 1204 PREOPERATIVE DIAGNOSIS: Diarrhea and nausea and upper abdominal bloating. POSTOPERATIVE DIAGNOSIS: Diarrhea, nausea, upper abdominal bloating, small hiatal hernia with sliding component and hemorrhoids. SURGEON: Valeria Gordon MD PROOF LOAD MECHANIC: No Additional Staff SURGERY/PROCEDURE: Esophagogastroduodenoscopy with biopsies and colonoscopy with biopsies. ANESTHESIA: Monitored anesthesia care LOCATION: [facility]. INDICATIONS: Amilcar Haile is a 26-year-old male, who presents with complaints of diarrhea, nausea, abdominal bloating. The patient therefore presents for upper and lower endoscopy. He has been counseled of the risks of procedure including, but not limited to infection, bleeding, perforation, GI tract requiring emergency surgery, injury to any internal organs, complications of anesthesia, inability to complete the procedure, etc. The patient understands and agrees to proceed. DESCRIPTION OF PROCEDURE: After informed consent was given, the patient brought to the endoscopy suite. Appropriate time-out protocol was done in the preprocedure area as well as in the endoscopy suite. Patient was then given IV anesthesia by the anesthesia provider. The patient's posterior pharynx was sprayed with local anesthetic. A bite block was placed. The upper endoscope was lubricated and carefully inserted in the patient's mouth and advanced into the esophagus. It was then advanced down the stomach, past the pylorus into the first and then the second portion of the duodenum. There was no evidence of any masses, polyps, or lesions in the duodenum. Because of the patient's complaint, mucosal biopsies were taken using cold grasper forceps of the second portion of the duodenum. The endoscope was retracted back into the stomach. There was no evidence of any masses, polyps, or lesions noted in the entire stomach. Because of the patient's complaint, mucosal biopsies were taken of the antrum of the stomach using cold grasper forceps. The endoscope was retracted back into the esophagus. The patient was noted to have a small hiatal hernia with a small sliding component. The GE junction appeared minimally irregular. Because of the patient's complaint, mucosal biopsies were taken using cold grasper forceps. The remainder of the esophagus appeared normal. The endoscope was removed intact. The patient tolerated this portion of procedure well. The next procedure performed was colonoscopy. The colonoscope was lubricated and carefully inserted in patient's anus and advanced into the rectum. It was then advanced into the sigmoid colon, then the left colon, past the splenic flexure into transverse colon, past the hepatic flexure down the right colon to the cecum. The cecum was identified by transillumination, confluence of teniae coli, identification of ileocecal valve, appendiceal orifice, and external palpation. At this level, the colonoscope was slowly retracted back and entire colonic mucosal surface was examined. The colon cleansing preparation was fair. There were still retained fecal contents in the colon, which required copious lavage and aspiration to clear the colonic noguera adequately. Because of the patient's complaint, random mucosal biopsies using cold grasper forceps were taken throughout the colon. There was no evidence of any masses, polyps, lesions in the right colon. There was no evidence of any masses, polyps, or lesions in the transverse colon. There was no evidence of any masses, polyps, or lesions in the left colon. There was no evidence of any masses, polyps, or lesions in the sigmoid colon. There was no evidence of any masses or polyps in the rectum. Retroflexed view in the rectum revealed minimal hemorrhoidal changes, and no active bleeding or inflammation. The endoscope was removed intact. Digital examination of the anal canal revealed no palpable masses. The patient tolerated the procedure well, was brought to recovery room in stable condition. COMPLICATIONS: None. ESTIMATED BLOOD LOSS: Minimal. SPECIMENS: Mucosal biopsies of the following, second portion of duodenum, antrum of stomach, GE junction, and entire random colon. Valeria Gordon MD [id number] /[id number] BRIEF OPERATIVE NOTE SURGERY DATE: 03/27/2022 Incision/Procedure Start Time: 11:35 cecal intubation time: 11:52 Incision Close/Procedure End Time: 12:04 Surgeon(s)/Proceduralist(s) and Fermentation Manager(s): Evan Procedures: EGD with biopsies Colonoscopy with biopsies Anesthesia: MAC Findings: normal EGD except small hiatal hernia with sliding component, hemorrhoids Estimated Blood Loss: minimal Specimens: mucosal biopsies of the following - second portion of duodenum, antrum of stomach, GE junction, random colon (entire) Complications: None Preop Diagnosis: diarrhea, nausea Postop Diagnosis: same, diarrhea, nausea SIGNATURE: Valeria Gordon MD PATIENT NAME: Amilcar Haile DATE: March 27, 2022 TIME: 12:06 PM Acct: [id number] documented in this encounter [facility] 03-27-2022 Note HNO ID: [id number] Author: Madonna Horowitz RN Service: Nursing Author Type: Registered Nurse Type: Nursing Progress Note Filed: 03/27/2022 10:35 AM Note Text: Patient education completed. Patient ready for procedure. [facility] 03-27-2022 History and physical note UPDATED HISTORY AND PHYSICAL EXAMINATION SERVICE DATE: 03/27/2022 SERVICE TIME: 11:17 PHYSICAL EXAM MUST BE COMPLETED ON ADMISSION The History and Physical (completed in the past 30 days) has been reviewed and the patient has been examined. The contents accurately reflect the patient's condition with the following additions or revisions since the H&P was completed. Examination indicates no changes. This H&P can be found in the Electronic Medical Record. SIGNATURE: Valeria Gordon MD PATIENT NAME: Amilcar Haile DATE: March 27, 2022 TIME: 11:17 AM Source Note - Valeria Gordon MD - 03/27/2022 11:00 AM EST HISTORY AND PHYSICAL Amilcar Haile 1995 REFERRING PHYSICIAN: Julio Hogan PA-C CHIEF COMPLAINT: No chief complaint on file. HPI: The patient is a 26 year old male presents for EGD and colonoscopy. He complains of diarrhea and upper abdominal cramping. Has nausea. PAST MEDICAL HISTORY Diagnosis Date Attention deficit disorder with hyperactivity(314.01) 12/28/2007 Depression Esophageal reflux Generalized anxiety disorder Migraine with aura Seizures (HCC) Unspecified asthma(493.90) PAST SURGICAL HISTORY Procedure Laterality Date PAST SURGICAL HISTORY OF T&A Current Outpatient Medications Medication Sig FLUoxetine (PROZAC) 40 mg capsule Take 1 capsule by mouth once daily. ARIPiprazole (ABILIFY) 2 mg tablet Take 1 tablet by mouth once daily. busPIRone (BUSPAR) 15 mg tablet Take 1 tablet by mouth three times daily. midodrine (PROAMITINE) 5 mg tablet Take 1 tablet by mouth three times daily. diphenoxylate-atropine (LOMOTIL) 2.5-0.025 mg per tablet Take 1 tablet by mouth four times daily as needed for up to 30 days. albuterol HFA (PROVENTIL HFA, VENTOLIN HFA) 90 mcg/actuation inhaler Inhale 2 Puffs as instructed every 6 hours as needed. hydrOXYzine pamoate (VISTARIL) 25 mg capsule Take 1 capsule by mouth three times daily as needed. SUMAtriptan (IMITREX) 50 mg tablet Take 1 tablet by mouth as directed. TAKE AT ONSET OF MIGRAINE. MAY REPEAT X 1 IF NEEDED. fluticasone (FLONASE) 50 mcg/actuation nasal spray Use 2 Sprays in each nostril once daily. Rinse mouth after use. ALLERGIES: Environmental: Cats. Dogs, Horses [Other]; Rondec [Brompheniramine-Pseudoephedrin]; and Sympathomimetic Agents PERSONAL HISTORY: Social History Tobacco Use Smoking status: Never Smokeless tobacco: Never Tobacco comments: outside Vaping Use Vaping Use: Never used Substance Use Topics Alcohol use: Not Currently Drug use: Not Currently Types: Marijuana FAMILY HISTORY: FAMILY HISTORY Problem Relation Age of Onset Anxiety disorder Mother Depression Mother Asthma Father other (adhd) Father other (encephalitis) Maternal Grandfather other (ms) Maternal Grandfather other (cirrhosis) Maternal Grandfather Heart Other MOMS SIDE other (cholesterol) Other dads side REVIEW OF SYSTEMS: General - denies fevers HEENT - denies trauma/infections Resp - denies coughing up blood, denies breathing difficulties Cardiac - denies chest pain GI - denies abdominal pain, denies blood in stools, denies vomiting up of blood - denies blood in urine Endocrine - denies diabetes Psych - denies hallucinations PHYSICAL EXAMINATION: General: The patient is 26 year old male, well nourished, well hydrated in no acute distress. The patient is oriented to time, place, and person. VITALS: Blood pressure 127/80, pulse 76, temperature 36.6 C (97.9 F), temperature source Temporal, resp. rate 13, height 175.3 cm (5' 9 ), weight 89.8 kg (198 lb), SpO2 97 %. Body mass index is 29.24 kg/m . General - WD/WN WM in no apparent distress, alert and oriented Head - Normocephalic. EOM intact with sclera clear. Mouth with mucus membranes moist. Neck - supple with no jugular venous distention noted. Trachea is midline. Lungs - clear to auscultation. Normal breath sounds. No rales/rhonchi/wheezing noted. Heart - normal heart sounds. No rubs/clicks/murmurs noted. Regular rate. Abdomen - soft and benign. Extremities - no pitting edema noted. Skin - Normal skin integrity. Neurological - non focal Psych - calm and appropriate Impression: diarrhea, nausea, crampy abdominal pain Discussion/Plan/Recommendations: I have discussed the above with the patient. I have offered colonoscopy and EGD, possible biopsies I have explained the procedure to the patient. I have counseled the patient as to the risks of the procedure, including but not limited to: infection, bleeding, injury to any intrabdominal organs such as liver/spleen, perforation of the GI tract, inability to complete the procedure, complications of anesthesia, etc. - the patient understands. The patient wishes to proceed. I have answered all questions to the patient s satisfaction and the patient has no further questions. Valeria Gordon MD HISTORY AND PHYSICAL Amilcar Haile 1995 REFERRING PHYSICIAN: Julio Hogan PA-C CHIEF COMPLAINT: No chief complaint on file. HPI: The patient is a 26 year old male presents for EGD and colonoscopy. He complains of diarrhea and upper abdominal cramping. Has nausea. PAST MEDICAL HISTORY Diagnosis Date Attention deficit disorder with hyperactivity(314.01) 12/28/2007 Depression Esophageal reflux Generalized anxiety disorder Migraine with aura Seizures (HCC) Unspecified asthma(493.90) PAST SURGICAL HISTORY Procedure Laterality Date PAST SURGICAL HISTORY OF T&A Current Outpatient Medications Medication Sig FLUoxetine (PROZAC) 40 mg capsule Take 1 capsule by mouth once daily. ARIPiprazole (ABILIFY) 2 mg tablet Take 1 tablet by mouth once daily. busPIRone (BUSPAR) 15 mg tablet Take 1 tablet by mouth three times daily. midodrine (PROAMITINE) 5 mg tablet Take 1 tablet by mouth three times daily. diphenoxylate-atropine (LOMOTIL) 2.5-0.025 mg per tablet Take 1 tablet by mouth four times daily as needed for up to 30 days. albuterol HFA (PROVENTIL HFA, VENTOLIN HFA) 90 mcg/actuation inhaler Inhale 2 Puffs as instructed every 6 hours as needed. hydrOXYzine pamoate (VISTARIL) 25 mg capsule Take 1 capsule by mouth three times daily as needed. SUMAtriptan (IMITREX) 50 mg tablet Take 1 tablet by mouth as directed. TAKE AT ONSET OF MIGRAINE. MAY REPEAT X 1 IF NEEDED. fluticasone (FLONASE) 50 mcg/actuation nasal spray Use 2 Sprays in each nostril once daily. Rinse mouth after use. ALLERGIES: Environmental: Cats. Dogs, Horses [Other]; Rondec [Brompheniramine-Pseudoephedrin]; and Sympathomimetic Agents PERSONAL HISTORY: Social History Tobacco Use Smoking status: Never Smokeless tobacco: Never Tobacco comments: outside Vaping Use Vaping Use: Never used Substance Use Topics Alcohol use: Not Currently Drug use: Not Currently Types: Marijuana FAMILY HISTORY: FAMILY HISTORY Problem Relation Age of Onset Anxiety disorder Mother Depression Mother Asthma Father other (adhd) Father other (encephalitis) Maternal Grandfather other (ms) Maternal Grandfather other (cirrhosis) Maternal Grandfather Heart Other MOMS SIDE other (cholesterol) Other dads side REVIEW OF SYSTEMS: General - denies fevers HEENT - denies trauma/infections Resp - denies coughing up blood, denies breathing difficulties Cardiac - denies chest pain GI - denies abdominal pain, denies blood in stools, denies vomiting up of blood - denies blood in urine Endocrine - denies diabetes Psych - denies hallucinations PHYSICAL EXAMINATION: General: The patient is 26 year old male, well nourished, well hydrated in no acute distress. The patient is oriented to time, place, and person. VITALS: Blood pressure 127/80, pulse 76, temperature 36.6 C (97.9 F), temperature source Temporal, resp. rate 13, height 175.3 cm (5' 9 ), weight 89.8 kg (198 lb), SpO2 97 %. Body mass index is 29.24 kg/m . General - WD/WN WM in no apparent distress, alert and oriented Head - Normocephalic. EOM intact with sclera clear. Mouth with mucus membranes moist. Neck - supple with no jugular venous distention noted. Trachea is midline. Lungs - clear to auscultation. Normal breath sounds. No rales/rhonchi/wheezing noted. Heart - normal heart sounds. No rubs/clicks/murmurs noted. Regular rate. Abdomen - soft and benign. Extremities - no pitting edema noted. Skin - Normal skin integrity. Neurological - non focal Psych - calm and appropriate Impression: diarrhea, nausea, crampy abdominal pain Discussion/Plan/Recommendations: I have discussed the above with the patient. I have offered colonoscopy and EGD, possible biopsies I have explained the procedure to the patient. I have counseled the patient as to the risks of the procedure, including but not limited to: infection, bleeding, injury to any intrabdominal organs such as liver/spleen, perforation of the GI tract, inability to complete the procedure, complications of anesthesia, etc. - the patient understands. The patient wishes to proceed. I have answered all questions to the patient s satisfaction and the patient has no further questions. Valeria Gordon MD documented in this encounter [facility] 03-19-2022 History of Present illness Narrative HISTORY AND PHYSICAL Amilcar Haile 1995 REFERRING PHYSICIAN: Yosef Israel MD CHIEF COMPLAINT: Consult HPI: The patient is a 26 year old male referred for endoscopy. Amilcar notes a 1-month history of diarrhea and abdominal cramping. Notes intermittent formed stools but mostly loose. Patient also complains of recent nausea. Notes family history of bowel issues -states father has had problems, unsure what type but denies FH of cancer. Denies history of tobacco use. Denies recent travel, antibiotic use or sick contacts. Patient's past medical history is significant for POTS. Amilcar has not undergone prior endoscopy. PAST MEDICAL HISTORY Diagnosis Date Attention deficit disorder with hyperactivity(314.01) 12/28/2007 Depression Esophageal reflux Generalized anxiety disorder Migraine with aura Seizures (HCC) Unspecified asthma(493.90) PAST SURGICAL HISTORY Procedure Laterality Date PAST SURGICAL HISTORY OF T&A Current Outpatient Medications Medication Sig FLUoxetine (PROZAC) 40 mg capsule Take 1 capsule by mouth once daily. ARIPiprazole (ABILIFY) 2 mg tablet Take 1 tablet by mouth once daily. busPIRone (BUSPAR) 15 mg tablet Take 1 tablet by mouth three times daily. albuterol HFA (PROVENTIL HFA, VENTOLIN HFA) 90 mcg/actuation inhaler Inhale 2 Puffs as instructed every 6 hours as needed. midodrine (PROAMITINE) 5 mg tablet Take 1 tablet by mouth three times daily. hydrOXYzine pamoate (VISTARIL) 25 mg capsule Take 1 capsule by mouth three times daily as needed. SUMAtriptan (IMITREX) 50 mg tablet Take 1 tablet by mouth as directed. TAKE AT ONSET OF MIGRAINE. MAY REPEAT X 1 IF NEEDED. fluticasone (FLONASE) 50 mcg/actuation nasal spray Use 2 Sprays in each nostril once daily. Rinse mouth after use. diphenoxylate-atropine (LOMOTIL) 2.5-0.025 mg per tablet Take 1 tablet by mouth four times daily as needed for up to 30 days. No current facility-administered medications for this visit. ALLERGIES: Environmental: Cats. Dogs, Horses [Other]; Rondec [Brompheniramine-Pseudoephedrin]; and Sympathomimetic Agents PERSONAL HISTORY: Social History Tobacco Use Smoking status: Never Smokeless tobacco: Never Tobacco comments: outside Vaping Use Vaping Use: Never used Substance Use Topics Alcohol use: Not Currently Drug use: Not Currently Types: Marijuana FAMILY HISTORY: FAMILY HISTORY Problem Relation Age of Onset Anxiety disorder Mother Depression Mother Asthma Father other (adhd) Father other (encephalitis) Maternal Grandfather other (ms) Maternal Grandfather other (cirrhosis) Maternal Grandfather Heart Other MOMS SIDE other (cholesterol) Other dads side REVIEW OF SYMPTOMS: The review of systems data was entered by the nurse and reviewed by ar Nursing Notes: Cary David LPN 03/19/2022 1:38 PM Signed REVIEW OF SYSTEMS: General: The patient denies fatigue, denies weight loss, denies weight gain, denies feeling hot, and denies feelings of cold. Eyes: The patient denies glaucoma, denies eye injury/surgery, wears glasses. Ear/Nose/Throat: The patient NOTES allergies, denies hayfever, denies ear infections, and denies bloody noses. Cardiovascular: The patient denies chest pain, denies heart disease, denies high blood pressure,denies cardiac stent, denies prior heart attack, denies irregular heart beat, denies high cholesterol, denies poor circulation, denies heart failure, other cardiac issues, NOTES other heart problems, denies claudication, denies cold feet, denies peripheral arterial stent. Respiratory: The patient denies tuberculosis, denies pneumonia, denies frequent cough, denies pulmonary embolism, denies shortness of breath, NOTES other lung problems, and denies coughing up blood. Gastrointestinal: The patient denies difficulty swallowing, NOTES acid reflux, denies ulcers, denies vomiting, denies jaundice/hepatitis, denies gallbladder problems, denies black or tarry stools, denies hemorrhoids, NOTES bleeding from rectum, denies diverticulitis, denies constipation, NOTES diarrhea, denies loss of stool control, and denies hernias. Kidney/Bladder: The patient denies kidney stones, denies urine infections, and denies bloody urine. Skin: The patient denies a history of skin cancer, denies bleeding/changing moles, and denies a history of skin rash. Neurologic: The patient NOTES a history of epilepsy/convulsions/seizures, NOTES headaches, denies head/spinal injuries, and denies stroke/TIA. Psychiatric: The patient NOTES psychiatric medications, NOTES depression, and denies voices, denies substance abuse. Endocrine: The patient denies thyroid disorders, denies diabetes, and denies hormonal problems. Hematologic: The patient denies a history of bruising, denies bleeding, and denies anemia, denies blood clots. Infections: The patient denies a history of measles and mumps, denies rheumatic fever, and denies sexually transmitted diseases. Musculoskeletal: The patient denies back pain/injury, denies back problems, denies sciatica, denies knee/foot trouble, denies arthritis, or denies gout. When was patient's last Mammogram screening? N/A Last Colonoscopy: None Cary David LPN I have confirmed and edited as necessary, the PFSH and ROS obtained by others. Julio Hogan PA-C PHYSICAL EXAMINATION: General: The patient is 26 year old male, well nourished, well hydrated in no acute distress. The patient is oriented to time, place, and person. VITALS: Blood pressure 128/70, pulse 116, temperature 36.8 C (98.3 F), temperature source Temporal, resp. rate 14, height 175.3 cm (5' 9 ), weight 89.8 kg (198 lb), SpO2 95 %. Body mass index is 29.24 kg/m . HEENT: Normal cephalic, ataumatic, pupils are equally round, sclera are anicteric, mucous membranes are moist, oropharynx is clear. Neck has no masses, asymmetry or lymphadenopathy. Respiratory: Clear to auscultation and percussion. Normal respiratory excursion and pattern. Cardiac: Examination is regular rate and rhythm. Normal S1/S2 Abdominal exam: Soft, nontender, with no palpable masses. No hepatosplenomegaly. No palpable hernias. Extremities: no clubbing, cyanosis or edema. No adenopathy. LABORATORY VALUES: As Noted RADIOLOGIC STUDIES: As Noted Assessment IMPRESSION: diarrhea, nausea PLAN: I have reviewed my findings with the surgeon. Will plan for upper and lower endoscopy. We discussed the risks and benefits of the planned endoscopy. I have informed the patient that complications can occur including failure to complete the endoscopy and perforation. The patient had the opportunity to ask questions concerning the planned endoscopy. My staff has also explained the procedure to the patient in understandable terms and has given the patient printed material concerning the procedure. The patient freely consents to surgery. The patient was offered a surgery/procedure at a [facility] facility. I have counseled the patient regarding the risk of exposure to and/or potential harm posed by the COVID-19 virus with having a surgery/procedure at this time versus the risk of delaying the surgery/procedure. It is not possible to know either the risk of delaying the surgery or procedure or chance of getting an infection with perfect accuracy, but a joint decision was made between the patient and myself to proceed at this time with endoscopy. I plan to use Golytely bowel preparation We will plan for Monitored Anesthetic Care. Diagnoses: (R19.7) Diarrhea, unspecified type (primary encounter diagnosis) (R19.4) Change in bowel habits (R11.0) Nausea Consultation requested by Dr. Israel for an opinion regarding diarrhea. My final recommendations will be communicated back to the requesting physician by way of shared Medical record or letter to requesting physician via US mail. Julio Hogan PA-C documented in this encounter [facility] 03-19-2022 Nurse Note REVIEW OF SYSTEMS: General: The patient denies fatigue, denies weight loss, denies weight gain, denies feeling hot, and denies feelings of cold. Eyes: The patient denies glaucoma, denies eye injury/surgery, wears glasses. Ear/Nose/Throat: The patient NOTES allergies, denies hayfever, denies ear infections, and denies bloody noses. Cardiovascular: The patient denies chest pain, denies heart disease, denies high blood pressure,denies cardiac stent, denies prior heart attack, denies irregular heart beat, denies high cholesterol, denies poor circulation, denies heart failure, other cardiac issues, NOTES other heart problems, denies claudication, denies cold feet, denies peripheral arterial stent. Respiratory: The patient denies tuberculosis, denies pneumonia, denies frequent cough, denies pulmonary embolism, denies shortness of breath, NOTES other lung problems, and denies coughing up blood. Gastrointestinal: The patient denies difficulty swallowing, NOTES acid reflux, denies ulcers, denies vomiting, denies jaundice/hepatitis, denies gallbladder problems, denies black or tarry stools, denies hemorrhoids, NOTES bleeding from rectum, denies diverticulitis, denies constipation, NOTES diarrhea, denies loss of stool control, and denies hernias. Kidney/Bladder: The patient denies kidney stones, denies urine infections, and denies bloody urine. Skin: The patient denies a history of skin cancer, denies bleeding/changing moles, and denies a history of skin rash. Neurologic: The patient NOTES a history of epilepsy/convulsions/seizures, NOTES headaches, denies head/spinal injuries, and denies stroke/TIA. Psychiatric: The patient NOTES psychiatric medications, NOTES depression, and denies voices, denies substance abuse. Endocrine: The patient denies thyroid disorders, denies diabetes, and denies hormonal problems. Hematologic: The patient denies a history of bruising, denies bleeding, and denies anemia, denies blood clots. Infections: The patient denies a history of measles and mumps, denies rheumatic fever, and denies sexually transmitted diseases. Musculoskeletal: The patient denies back pain/injury, denies back problems, denies sciatica, denies knee/foot trouble, denies arthritis, or denies gout. When was patient's last Mammogram screening? N/A Last Colonoscopy: None Cary David LPN documented in this encounter [facility] 02-24-2022 History of Present illness Narrative Images from the original note were not included. PSYC FOLLOW UP - PSYCHIATRIC PROGRESS NOTE DIAGNOSIS: Generalized Anxiety Disorder MDD, recurrent, in partial remission History of ADHD GAF: -60-51 Moderate symptoms or moderate difficulty in social, occupational or school functioning. TREATMENT PLAN: Continue Prozac, Abilify and Buspar at the same dose. Consider decrease in Prozac if GI symptoms don't improve. Patient has a history of struggle with GI symptoms and does not think that they became worse with Prozac. Does not wish to change dose at this time. Follow up in 2 to 3 months. The effects and side effects of all the medications were reviewed in detail with the patient. He denies any involuntary movement related side effects. Patient is in agreement with the treatment plan and aware to reach out with any questions, concerns, or worsening of symptoms prior to the next appointment. CC: Follow up regarding mood and anxiety. With the patient consent, visit was performed virtually. HPI: Amilcar Haile is a 26 year old Male with a history of MAYKEL and MDD presenting today for follow-up. Date of last visit: 01/17/2022 Plan from last visit: Increase Prozac to address his anxiety symptoms. Continue Abilify and Buspar at the same dose. Order monitoring lab work at the next appointment. Follow up in 4 to 6 weeks. Today Valdemar shares that he has been okay. Things have been stressful. His 's surgery went okay. Reports increase in Prozac to be helpful. It has helped with depression and anxiety. He is not utilizing the hydroxyzine as it has not been helpful. Denies any side effects from the Prozac increase. He continues to struggle with intermittent anxiety. Feels it is triggered by stress. Has worries related to his 's surgery and her not feeling better yet. His son is doing well but not sleeping well at night. He is getting over a double ear infection and getting molars coming in. He has been struggling with severe diarrhea. They are trying to see what is causing it. His diet has not changed. This has been going on for a month. He experiences stomach cramps. Unsure if he has a family history of any GI issues. Interval Progress: Slightly improved Risks and benefits of the medication, including any black box warnings, were discussed with the patient. Social History: See HPI PATIENT DATA: Generalized Anxiety Disorder Scale (MAYKEL-7) MAYKEL - 7 SCORES 11/10/2021 01/17/2022 02/24/2022 MAYKEL-7 Score 5 6 6 (0-4) minimal anxiety, (5-9) mild anxiety, (10-14) moderate anxiety, (15-21) severe anxiety Patient Health Questionnaire (PHQ-9) PHQ-9 11/10/2021 01/17/2022 02/24/2022 Score 2 6 4 (0-4) minimal depression, (5-9) mild depression, (10-14) moderate depression, (15-19) moderately severe depression, (20-27) severe depression ROS: See HPI General: Negative for fever, malaise, unintentional weight loss HEENT: Negative for recent changes in vision or hearing, no nasal drainage Respiratory: Negative for cough, wheezing or SOB Cardiovascular: Negative for chest pain GI: Negative for nausea, vomiting,see HPI MUSCULOSKELETAL: Negative for acute back or joint pain SKIN: Negative for rash NEURO: Negative for headaches, seizures, focal neurological deficits All other systems negative. VITAL SIGNS: BP Temp Pulse Resp SpO2 MENTAL STATUS EXAMINATION: Appearance: Appropriately groomed, appears stated age Behavior: Appropriately engaged Psychomotor: No psychomotor agitation Cognition Level of Consciousness: Awake and alert. No fluctuation in wakefulness. Orientation: Grossly oriented Memory: Intact Attention/Concentration: Good Fund of Knowledge: Able to demonstrate an awareness of current events. Mood: Anxious Affect: Congruent to mood Speech/Language: Appropriate tone, prosody, kamran, phonetics, and syntax Thought Form: Goal-directed. No loosening of associations. Thought Content: No delusions noted or endorsed. Perceptual Disturbances: Did not appear to respond to auditory stimuli. Safety: Suicidal Ideations: No suicidal ideation, intent or plan. Homicidal Ideations: No homicidal ideation, intent or plan. Insight: Appropriate Judgment: Appropriate I spent a total of 28 minutes on the date of the service which included preparing to see the patient, [id number] patient care, completing clinical documentation, and counseling and educating the patient/family/caregiver, ordering medications/labs. Ame Pérez [email or web address] February 24, 2022 4:41 PM This note was partially generated using [facility] voice recognition system. Note was reviewed for accuracy. There may be minor misspellings or grammar miscues with [facility] voice recognition. documented in this encounter [facility] 02-24-2022 Miscellaneous Notes TC to pt, notified of provider response. He verbalized understanding. Graeme Larsen LPN Recheck bmp in one week. Push fluids. If not back to normal by end of week, will have to see surgery or gi for the diarrhea. Let me know how doing by Thursday. Still has diarrhea, but is improving. Has some cramping, but overall is improving. Is making sure he is staying hydrated. Renee Salazar Ma Labs are ok except that kidney function is improving but still low for someone his age. May still indicate dehydration. Stool studies are negative. How feeling? documented in this encounter [facility] 02-19-2022 Miscellaneous Notes Patient returned call and went over results, notes from Dr Garcia with understanding. TC patient, unable to leave message due to mailbox being full. Will try back later. Jessika Trevizo RN Labs show he appears mildly dehydrated. Push fluids and recheck bmp this week documented in this encounter [facility] 02-17-2022 History of Present illness Narrative No chief complaint on file. HPI:This Team Access Model visit is a phone encounter. It required patient-provider interaction for the medical decision making as documented below. Patient was offered a virtual/telemedicine appointment in lieu of an office visit due to recommendations to reduce patient exposure to COVID-19. Patient is aware of limitations of performing the visit without a face to face visit in the office setting and agrees. Has frequent bm's over the last three weeks. Can happen as much as once an hour. Stools are watery. No abd pain. Had a few dark stools but has used some peptol bismol. - No recent tarry or bloody stools. No fever. Mild nausea but has some chonic nasal drainage. No vomiting. No med changes. No family hx of recent gi issues. No travel hx of antibiotic usage. Does eat a lot of dairy. MEDICATIONS: ALLERGIES: ALLERGIES Allergen Reactions Environmental: Cats* Cough, Shortness of Breath Rondec [Bromphenira* mom doesn't recall reaction as a baby Sympathomimetic Age* Sudafed PAST MEDICAL HISTORY Diagnosis Date Attention deficit disorder with hyperactivity(314.01) 12/28/2007 Esophageal reflux Migraine with aura Seizures (HCC) Unspecified asthma(493.90) PAST SURGICAL HISTORY Procedure Laterality Date PAST SURGICAL HISTORY OF T&A FAMILY HISTORY Problem Relation Age of Onset Anxiety disorder Mother Depression Mother Asthma Father other (adhd) Father other (encephalitis) Maternal Grandfather other (ms) Maternal Grandfather other (cirrhosis) Maternal Grandfather Heart Other MOMS SIDE other (cholesterol) Other dads side Social History Tobacco Use Smoking status: Never Smokeless tobacco: Never Tobacco comments: outside Vaping Use Vaping Use: Never used Substance Use Topics Alcohol use: Not Currently Drug use: Never Reviewed current medications, allergies, past medical history, surgical history, family history and social history today. REVIEW OF SYSTEMS All other reviewed and negative other than HPI. HEALTH MAINTENANCE: Discussed covid 19 safety and recommendations if patient should become ill. Reviewed health maintenance issues today and recommended the following in detail. There are no preventive care reminders to display for this patient. VITALS: There were no vitals taken for this visit. Last 4 Encounter Wt Readings: Date: Wt: 02/10/2022 88.3 kg (194 lb 9.6 oz) 02/06/2022 88.5 kg (195 lb) 11/05/2021 84 kg (185 lb 1.6 oz) 10/08/2021 83 kg (183 lb) PHYSICAL EXAMINATION: Patient is alert and oriented during visit. Answers appropriately. ASSESSMENT/PLAN: 1. Diarrhea, unspecified type - ICD9: 787.91, ICD10: R19.7 - limit dairy. Red flags for re-assessment reviewed with patient in detail. - consider gi/surgery work up - CBC + DIFF - BASIC METABOLIC PNL - C. DIFFICILE PCR - CRYPTOSPORIDIUM AND GIARDIA ANTIGENS BY EIA - ENTERIC BACTERIAL PANEL BY PCR - FECAL LACTOFERRIN/LEUKOCYTES - FECAL OCCULT BLOOD TEST Cesario Garcia MD I spent 13 minutes in the visit, with more than 50% of the total [id number] time of the visit in counseling / coordination of care. documented in this encounter [facility] 02-10-2022 Instructions Licha [facility] Ma - 02/10/2022 2:41 PM EST Update office if diarrhea is not improving with use of Lomotil. documented in this encounter [facility] 02-10-2022 History of Present illness Narrative Chief Complaint Patient presents with: Diarrhea HPI Amilcar Haile is a 26 year old male who presents here today for an acute visit. Pt scheduled via [facility] for ongoing diarrhea symptoms for almost 2 weeks. Pt recently seen [facility] 02/06[facility]22 for vomiting, stomach ache, sinus pressure, congestion and drainage that was causing him to gag for the past 10 days. Pt was dx with rhinosinusitis and treated with Augmentin 875 mg bid for 5 days. Continues to still have diarrhea over the past two weeks. He thought this was related to food poisoning. Thought he was improving, but notes last week it started to get loose again. States when he went into [facility] it was for diarrhea, but they treated him for his sinuses. He has one more dosage of Augmentin left. Denies this helping his diarrhea or sinuses. Notes some stomach cramping, stomach upset and nausea. Reports some episodes of vomiting, but feels this is related to his sinuses. Most recently vomited this morning. Denies having a cough. At times he will have to go to the bathroom every half hour but this varies. States that his appetite is okay and he eats alright. Notes he believes he can see mucous in his bowels. Does note some bright red blood but feels this is related to having hemorrhoids now. Has used Pepto-Bismol and anti-diarrheal medication with no relief. Denies needing to get up at night to have BM. has a bad cough, but they feel this is related to getting a Pneumonia shot recently. HM - Declines Covid vaccine. Declines Flu shot. Past medical history, appointments, medications, allergies reviewed. Previous Medical History PAST MEDICAL HISTORY Diagnosis Date Attention deficit disorder with hyperactivity(314.01) 12/28/2007 Esophageal reflux Migraine with aura Seizures (HCC) Unspecified asthma(493.90) Previous Surgical History PAST SURGICAL HISTORY Procedure Laterality Date PAST SURGICAL HISTORY OF T&A Family History FAMILY HISTORY Problem Relation Age of Onset Anxiety disorder Mother Depression Mother Asthma Father other (adhd) Father other (encephalitis) Maternal Grandfather other (ms) Maternal Grandfather other (cirrhosis) Maternal Grandfather Heart Other MOMS SIDE other (cholesterol) Other dads side Patient Allergies ALLERGIES Allergen Reactions Environmental: Cats* Cough, Shortness of Breath Rondec [Bromphenira* mom doesn't recall reaction as a baby Sympathomimetic Age* Sudafed Current Medications Current Outpatient Medications on File Prior to Visit Medication Sig amoxicillin-clavulanic acid (AUGMENTIN) 875-125 mg per tablet Take 1 tablet by mouth twice daily for 5 days. FLUoxetine (PROZAC) 40 mg capsule Take 1 capsule by mouth once daily. ARIPiprazole (ABILIFY) 2 mg tablet Take 1 tablet by mouth once daily. busPIRone (BUSPAR) 15 mg tablet Take 1 tablet by mouth three times daily. albuterol HFA (PROVENTIL HFA, VENTOLIN HFA) 90 mcg/actuation inhaler Inhale 2 Puffs as instructed every 6 hours as needed. midodrine (PROAMITINE) 5 mg tablet Take 1 tablet by mouth three times daily. hydrOXYzine pamoate (VISTARIL) 25 mg capsule Take 1 capsule by mouth three times daily as needed. SUMAtriptan (IMITREX) 50 mg tablet Take 1 tablet by mouth as directed. TAKE AT ONSET OF MIGRAINE. MAY REPEAT X 1 IF NEEDED. fluticasone (FLONASE) 50 mcg/actuation nasal spray Use 2 Sprays in each nostril once daily. Rinse mouth after use. No current facility-administered medications on file prior to visit. Social History Social History Tobacco Use Smoking status: Never Smokeless tobacco: Never Tobacco comments: outside Vaping Use Vaping Use: Never used Substance Use Topics Alcohol use: Not Currently Drug use: Never EXAM: BP 104/80 (BP Site: Left Arm, BP Position: Sitting, BP Cuff Size: Regular Adult) Pulse 88 Resp 16 Wt 88.3 kg (194 lb 9.6 oz) BMI 26.39 kg/m General Appearance: Well appearing, alert, in no acute distress, well-hydrated, well nourished.. Lungs: Lungs clear to auscultation. No wheezing, rhonchi, rales.. Heart: RRR without murmur, gallop, or rubs. No ectopy. Abdomen: Normal abdominal exam, Abdomen soft, non-tender. Bowel sounds normal. No masses, organomegaly. Health Maintenance List COVID-19 VACCINE(2 - Booster for Michelle series) due on 12/22/2020 INFLUENZA(1) due on 11/21/2021 HEPATITIS C SCREENING due on 11/05/2022 HIV SCREENING due on 11/05/2022 DTAP,TDAP,TD(8 - Td or Tdap) due on 08/21/2026 HEPATITIS B Completed Data reviewed Epic ASSESSMENT/PLAN: 1. Diarrhea, unspecified type - ICD9: 787.91, ICD10: R19.7 (primary diagnosis) - Rx of Lomotil to see if this helps diarrhea symptoms - DIPHENOXYLATE-ATROPINE 2.5 MG-0.025 MG TABLET 2. Nausea and vomiting, unspecified vomiting type - ICD9: 787.01, ICD10: R11.2 - As noted above. - DIPHENOXYLATE-ATROPINE 2.5 MG-0.025 MG TABLET Pt to update office by Thursday if not improving. I agree with the Chief Complaint, ROS, and Past Histories independently gathered by the clinical work station support specialist and the remaining scribed note accurately describes my personal service to the patient. Medical Decision Making: Problems: Low: Acute, uncomplicated illness or injury Risk: Moderate: Drug management Medical Decision Making Level: 3 - Low Yosef Israel MD The documentation for this note was completed by Licha Greene Ma acting as scribe for Yosef Israel MD. February 10, 2022 2:38 PM. Licha Greene Ma documented in this encounter [facility] 01-17-2022 Instructions Ame Pérez APRN.GENERAL TECHNICIAN - 01/17/2022 10:55 AM EDT Vinay Mcmanus, It was good to talk with you today. Below is a summary of the plan that we discussed during your appointment for reference. Of course, if you have any questions or concerns do not hesitate to reach out to me via a message or call. Best, Ame Pérez APRN.CNP PLAN AND FOLLOW UP: YOU SHOULD SEEK IMMEDIATE MEDICAL ATTENTION AT THE NEAREST EMERGENCY DEPARTMENT OR BY CALLING 911, IF ANY OF THE FOLLOWING OCCURS: - New or worsening thoughts of harming yourself (suicidal thoughts) or others (homicidal thoughts) - Not feeling safe at home or worrying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 tachycardia syndrome)- Primary Tachycardia, unspecified Anxiety and depression Dysthymic disorder [facility] Diagnosis Anxiety and depression Dysthymic disorder [facility] Diagnosis MAYKEL (generalized anxiety disorder)- Primary Generalized anxiety disorder Recurrent major depressive disorder, in partial remission (HCC) History of ADHD Personal history of other mental disorder [facility] Diagnosis MAYKEL (generalized anxiety disorder)- Primary Generalized anxiety disorder Recurrent major depressive disorder, in partial remission (HCC) [facility] Diagnosis Diarrhea, unspecified type- Primary Nausea and vomiting, unspecified vomiting type [facility] Diagnosis Diarrhea, unspecified type- Primary [facility] Diagnosis Renal insufficiency- Primary Unspecified disorder of kidney and ureter [facility] Diagnosis MAYKEL (generalized anxiety disorder)- Primary Generalized anxiety disorder Recurrent major depressive disorder, in partial remission (HCC) History of ADHD Personal history of other mental disorder [facility] Diagnosis Gastroesophageal reflux disease, unspecified whether esophagitis present- Primary Change in bowel habits Other symptoms involving digestive system Diarrhea, unspecified type Nausea Nausea alone [facility] Diagnosis Diarrhea, unspecified type- Primary Change in bowel habits Other symptoms involving digestive system Nausea Nausea alone [facility] Diagnosis Chronic superficial gastritis without bleeding- Primary Atrophic 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 Hiatal hernia Diaphragmatic hernia without mention of obstruction or gangrene Gastroesophageal reflux disease with esophagitis without hemorrhage [facility] Diagnosis Malaise and fatigue- Primary Other malaise and fatigue MAYKEL (generalized anxiety disorder) Generalized anxiety disorder Recurrent major depressive disorder, in partial remission (HCC) History of ADHD Personal history of other mental disorder [facility] Diagnosis Viral gastroenteritis- Primary Intestinal infection due to other organism, not elsewhere classified [facility] Diagnosis Malaise and fatigue- Primary Other malaise and fatigue MAYKEL (generalized anxiety disorder) Generalized anxiety disorder Major depressive disorder, recurrent episode, moderate (HCC) Major depressive disorder, recurrent episode, moderate History of ADHD Personal history of other mental disorder documented in this encounter [facility] note* Diagnosis Vitamin D deficiency- Primary Unspecified vitamin D deficiency MAYKEL (generalized anxiety disorder) Generalized anxiety disorder Major depressive disorder, recurrent episode, moderate (HCC) Major depressive disorder, recurrent episode, moderate History of ADHD Personal history of other mental disorder [facility] Diagnosis Strain of thoracic region, initial encounter- Primary documented in this encounter [facility] note* Diagnosis Vitamin D deficiency- Primary Unspecified vitamin D deficiency MAYKEL (generalized anxiety disorder) Generalized anxiety disorder Recurrent major depressive disorder, in partial remission (HCC) Malaise and fatigue Other malaise and fatigue documented in this encounter [facility] for referral (narrative)* Outpatient Procedure (Routine) - Closed Specialty Diagnoses / Procedures Referred By Contac t Referred To Contact [facility] Diagnoses Change in bowel habits Diarrhea, unspecified type Nausea Procedures COLONOSCOPY DIAGNOSTIC COLONOSCOPY FLX DX W/COLLJ SPEC WHEN PFRMD Julio Hogan PA-C [address] [place] [id number] [facility] [address] [place] [id number] Referral ID Status Reason Start Date Expiration Date V isits Requested Visits Authorized [id number] Closed Auto-Generate d Referral 03/19/2022 03/19/2023 1 1 * Outpatient Procedure (Routine) - Closed Specialty Diagnoses / Procedures Referred By Contac t Referred To Contact [facility] Diagnoses Change in bowel habits Diarrhea, unspecified type Nausea Procedures EGD DIAGNOSTIC ESOPHAGOGASTRODUODENOSC OPY TRANSORAL DIAGNOSTIC Julio Hogan PA-C [address] [place] [address] [facility] [address] [place] [phone] Referral ID Status Reason Start Date Expiration Date V isits Requested Visits Authorized [id number] Closed Auto-Generate d Referral 03/19/2022 03/19/2023 1 1 [facility] for visit Narrative* Outpatient Procedure (Routine) - Closed Specialty Diagnoses / Procedures Referred By David kay Referred To Contact [facility] Diagnoses Change in bowel habits Diarrhea, unspecified type Nausea Procedures COLONOSCOPY DIAGNOSTIC COLONOSCOPY FLX DX W/COLLJ SPEC WHEN PFRMD Julio Hogan PA-C [address] [place] [address] [facility] [address] [place] [address] Referral ID Status Reason Start Date Expiration Date V isits Requested Visits Authorized [id number] Closed Auto-Generate d Referral 03/19/2022 03/19/2023 1 1 [facility] Concerns Infection Onset Date Last Indicated Resolved Time COVID-19 Rule-Out 03/31/2021 03/31/2021 04/01/2021 4:06 AM EST Infection Onset Date Last Indicated Resolved Time COVID-19 Rule-Out 09/22/2021 09/22/2021 Reason for Referral Specialty Diagnoses / Procedures Referred By David kay Referred To Contact Yosef Israel MD [address] [place] [address] Referral ID Status Reason Start Date Expiration Date Visits Re quested Visits Authorized [id number] Closed 1 1 Medications Administered Section Inactive Administered Medications - up to 3 most recent administrations Medication Order MAR Action Action Date Dose Rate Site benzocaine 20 % mucosal spray (HURRICAINE ONE) MUCOUS MEMBRANE (TOPICAL MOUTH & THROAT), ONCE, 1 dose, On Kirsten 03/27/22 at 1200, Intraprocedure Given 03/27/2022 11:32 AM EST lactated ringers iv infusion 75 mL/hr, INTRAVENOUS, CONTINUOUS, Starting on Kirsten 03/27/22 at 1030, Until Kirsten 03/27/22 at 1306, Preprocedure New Bag/Syringe/Lluvia le 03/27/2022 10:28 AM EST 75 mL/hr 75 mL/hr Hand, Left Summary Purpose Family History No Family History Records FoundNo Family History Records Found Advance Directives No Advanced Directives Records FoundNo Advanced Directives Records Found Additional Source Comments Source Comments (unrecognize d section and content) In the event this informatio n is protected by the Federal Confidentiality of Alcohol and Drug Abuse Patient Records regulations: The Federal rules restrict any use of the information to criminally investigate or prosecute any alcohol or drug abuse patient.[facility] event this information is protected by the Federal Confidentiality of Alcohol and Drug Abuse Patient Records regulations: The Federal rules restrict any use of the information to criminally investigate or prosecute any alcohol or drug abuse patient.[facility] the event this information is protected by the Federal Confidentiality of Alcohol and Drug Abuse Patient Records regulations: The Federal rules restrict any use of the information to criminally investigate or prosecute any alcohol or drug abuse patient.[facility] the event this information is protected by the Federal Confidentiality of Alcohol and Drug Abuse Patient Records regulations: The Federal rules restrict any use of the information to criminally investigate or prosecute any alcohol or drug abuse patient.[facility] the event this information is protected by the Federal Confidentiality of Alcohol and Drug Abuse Patient Records regulations: The Federal rules restrict any use of the information to criminally investigate or prosecute any alcohol or drug abuse patient.[facility] the event this information is protected by the Federal Confidentiality of Alcohol and Drug Abuse Patient Records regulations: The Federal rules restrict any use of the information to criminally investigate or prosecute any alcohol or drug abuse patient.[facility] the event this information is protected by the Federal Confidentiality of Alcohol and Drug Abuse Patient Records regulations: The Federal rules restrict any use of the information to criminally investigate or prosecute any alcohol or drug abuse patient.[facility] the event this information is protected by the Federal Confidentiality of Alcohol and Drug Abuse Patient Records regulations: The Federal rules restrict any use of the information to criminally investigate or prosecute any alcohol or drug abuse patient.[facility] the event this information is protected by the Federal Confidentiality of Alcohol and Drug Abuse Patient Records regulations: The Federal rules restrict any use of the information to criminally investigate or prosecute any alcohol or drug abuse patient.[facility] the event this information is protected by the Federal Confidentiality of Alcohol and Drug Abuse Patient Records regulations: The Federal rules restrict any use of the information to criminally investigate or prosecute any alcohol or drug abuse patient.[facility] the event this information is protected by the Federal Confidentiality of Alcohol and Drug Abuse Patient Records regulations: The Federal rules restrict any use of the information to criminally investigate or prosecute any alcohol or drug abuse patient.[facility] the event this information is protected by the Federal Confidentiality of Alcohol and Drug Abuse Patient Records regulations: The Federal rules restrict any use of the information to criminally investigate or prosecute any alcohol or drug abuse patient.[facility] the event this information is protected by the Federal Confidentiality of Alcohol and Drug Abuse Patient Records regulations: The Federal rules restrict any use of the information to criminally investigate or prosecute any alcohol or drug abuse patient.[facility] the event this information is protected by the Federal Confidentiality of Alcohol and Drug Abuse Patient Records regulations: The Federal rules restrict any use of the information to criminally investigate or prosecute any alcohol or drug abuse patient.[facility] the event this information is protected by the Federal Confidentiality of Alcohol and Drug Abuse Patient Records regulations: The Federal rules restrict any use of the information to criminally investigate or prosecute any alcohol or drug abuse patient.[facility]In the event this information is protected by the Federal Confidentiality of Alcohol and Drug Abuse Patient Records regulations: The Federal rules restrict any use of the information to criminally investigate or prosecute any alcohol or drug abuse patient.[facility]In the event this information is protected by the Federal Confidentiality of Alcohol and Drug Abuse Patient Records regulations: The Federal rules restrict any use of the information to criminally investigate or prosecute any alcohol or drug abuse patient.[facility] the event this information is protected by the Federal Confidentiality of Alcohol and Drug Abuse Patient Records regulations: The Federal rules restrict any use of the information to criminally investigate or prosecute any alcohol or drug abuse patient.[facility] the event this information is protected by the Federal Confidentiality of Alcohol and Drug Abuse Patient Records regulations: The Federal rules restrict any use of the information to criminally investigate or prosecute any alcohol or drug abuse patient.[facility] the event this information is protected by the Federal Confidentiality of Alcohol and Drug Abuse Patient Records regulations: The Federal rules restrict any use of the information to criminally investigate or prosecute any alcohol or drug abuse patient.[facility]In the event this information is protected by the Federal Confidentiality of Alcohol and Drug Abuse Patient Records regulations: The Federal rules restrict any use of the information to criminally investigate or prosecute any alcohol or drug abuse patient.[facility] the event this information is protected by the Federal Confidentiality of Alcohol and Drug Abuse Patient Records regulations: The Federal rules restrict any use of the information to criminally investigate or prosecute any alcohol or drug abuse patient.[facility]In the event this information is protected by the Federal Confidentiality of Alcohol and Drug Abuse Patient Records regulations: The Federal rules restrict any use of the information to criminally investigate or prosecute any alcohol or drug abuse patient.[facility] the event this information is protected by the Federal Confidentiality of Alcohol and Drug Abuse Patient Records regulations: The Federal rules restrict any use of the information to criminally investigate or prosecute any alcohol or drug abuse patient.[facility]In the event this information is protected by the Federal Confidentiality of Alcohol and Drug Abuse Patient Records regulations: The Federal rules restrict any use of the information to criminally investigate or prosecute any alcohol or drug abuse patient.[facility]In the event this information is protected by the Federal Confidentiality of Alcohol and Drug Abuse Patient Records regulations: The Federal rules restrict any use of the information to criminally investigate or prosecute any alcohol or drug abuse patient.[facility]In the event this information is protected by the Federal Confidentiality of Alcohol and Drug Abuse Patient Records regulations: The Federal rules restrict any use of the information to criminally investigate or prosecute any alcohol or drug abuse patient.[facility]In the event this information is protected by the Federal Confidentiality of Alcohol and Drug Abuse Patient Records regulations: The Federal rules restrict any use of the information to criminally investigate or prosecute any alcohol or drug abuse patient.[facility]In the event this information is protected by the Federal Confidentiality of Alcohol and Drug Abuse Patient Records regulations: The Federal rules restrict any use of the information to criminally investigate or prosecute any alcohol or drug abuse patient.[facility]In the event this information is protected by the Federal Confidentiality of Alcohol and Drug Abuse Patient Records regulations: The Federal rules restrict any use of the information to criminally investigate or prosecute any alcohol or drug abuse patient.[facility]In the event this information is protected by the Federal Confidentiality of Alcohol and Drug Abuse Patient Records regulations: The Federal rules restrict any use of the information to criminally investigate or prosecute any alcohol or drug abuse patient.[facility] HospitalIn the event this information is protected by the Federal Confidentiality of Alcohol and Drug Abuse Patient Records regulations: The Federal rules restrict any use of the information to criminally investigate or prosecute any alcohol or drug abuse patient.[facility] HospitalIn the event this information is protected by the Federal Confidentiality of Alcohol and Drug Abuse Patient Records regulations: The Federal rules restrict any use of the information to criminally investigate or prosecute any alcohol or drug abuse patient.[facility] HospitalIn the event this information is protected by the Federal Confidentiality of Alcohol and Drug Abuse Patient Records regulations: The Federal rules restrict any use of the information to criminally investigate or prosecute any alcohol or drug abuse patient.[facility] HospitalIn the event this information is protected by the Federal Confidentiality of Alcohol and Drug Abuse Patient Records regulations: The Federal rules restrict any use of the information to criminally investigate or prosecute any alcohol or drug abuse patient.[facility] Reason for Visit (unrecogniz ed section and content) Specialty Diagnoses / Procedures Referred By David kay Referred To Contact Psychiatry / ADULT PSYCHIATRY Diagnoses 4 TO 6 WEEK FOLLO WUP Procedures VIDEO PSYC/PSYL Yosef Camacho MD [address] [place] [address] Ame Pérez, SOFTWARE IMPLEMENTATION PROJECT MANAGER.[facility] [address] [place] [address] Referral ID Status Reason Start Date Expiration Date V isits Requested Visits Authorized [id number] Pending Review 02/24/2022 05/25/2022 1 1 Reason Comments Palpitations Reason Comments Medication side effects Reason Comments F/U 1 month Reason Comments Depression Reason Comments Consult Initial SW Pt Outr each Reason Comments Consult SW Pt Calling Reason Comments Consult SW Assessment Virt [facility] Specialty Diagnoses / Procedures Referred By David kay Referred To Contact Psychiatry / ADULT PSYCHOLOGY Diagnoses 1st eval Procedures VIDEO PSYC/PSYL Yosef Bravo MD [address] [place] [address] JillianMichael sotelo CODING SPEC [address] [place] [address] Referral ID Status Reason Start Date Expiration Date V isits Requested Visits Authorized [id number] Authorized 03/23/2021 03/22/2022 99 99 Reason Comments Covid19 Concern 12 month old son krystle horn positive yesterday Reason Comments Letter For Service Dog Reason Comments Nasal Congestion drainage, cough, hea dache and vomiting x today Reason Comments New Patient Evaluation Reason Onset Date Comments Refill Request 10/22/2021 Reason Comments F/U 3 Month Reason Onset Date Comments Refill Request 11/10/2021 Reason Comments Follow Up Anxiety Depression Reason Comments Received Outside Medical Records Records - [facility] Reason Onset Date Comments Refill Request 12/09/2021 Reason Comments Diarrhea Reason Comments Acute Visit Reason Comments Results Reason Onset Date Comments Refill Request 03/17/2022 Reason Comments Patient Update Experiencing symptom s from colonoscopy Reason Comments Consult Specialty Diagnoses / Procedures Referred By Contac t Referred To Contact Psychiatry / ADULT PSYCHIATRY Diagnoses 2 TO 3 MONTH FOLLOW UP Procedures VIDEO PSYC/PSYL EST Yosef Israel MD [address] [place] [address] Ame Pérez, SOFTWARE IMPLEMENTATION PROJECT MANAGER.GENERAL TECHNICIAN [address] [place] [address] Referral ID Status Reason Start Date Expiration Date V isits Requested Visits Authorized [id number] Pending Review 05/05/2022 08/03/2022 1 1 Reason Comments Vomiting With diarrhea x 3 da ys Specialty Diagnoses / Procedures Referred By Contac t Referred To Contact Psychiatry / ADULT PSYCHIATRY Diagnoses 4 TO 6 WEEK FOLLOW UP Procedures VIDEO PSYC/PSYL EST Yosef Israel MD [address] [place] [address] Ame Pérez, SOFTWARE IMPLEMENTATION PROJECT MANAGER.GENERAL TECHNICIAN [address] [place] [address] Referral ID Status Reason Start Date Expiration Date V isits Requested Visits Authorized [id number] Pending Review 07/14/2022 10/12/2022 1 1 Reason Comments Back Pain Pt reported (LT) mid dle back pain, denied injury, onset AM. Reason Comments Refill Request Care Teams (unrecognized sec tion and content) Magazine Repairer Relationship Specialty Start Date End Date Yosef Israel MD [address] [place] [address] PCP - General Family Practice 04/20/14 Magazine Repairer Relationship Specialty Start Date End Date Yosef Israel MD [address] [place] [address] PCP - General Family Practice 04/20/14 Magazine Repairer Relationship Specialty Start Date End Date Yosef Israel MD [address] [facility] [place] [address] PCP - General Family Practice 04/20/14 Magazine Repairer Relationship Specialty Start Date End Date Yosef Israel MD [address] [facility] [place] [place] [address] PCP - General Family Practice 04/20/14 Magazine Repairer Relationship Specialty Start Date End Date Yosef Israel MD [address] [facility] [place] [address] PCP - General Family Practice 04/20/14 Magazine Repairer Relationship Specialty Start Date End Date Yosef Israel MD [address] [place] [address], [place] [address] PCP - General Family Practice 04/20/14 Magazine Repairer Relationship Specialty Start Date End Date Yosef Israel MD [address] [facility] [place] [address] PCP - General Family Practice 04/20/14 Magazine Repairer Relationship Specialty Start Date End Date Yosef Israel MD [facility] [place] [address] PCP - General Family Practice 04/20/14 Magazine Repairer Relationship Specialty Start Date End Date Yosef Israel MD [address] [facility] [place] [address] PCP - General Family Practice 04/20/14 Magazine Repairer Relationship Specialty Start Date End Date Yosef Israel MD [facility] [place] [place] [address] PCP - General Family Practice 04/20/14 Magazine Repairer Relationship Specialty Start Date End Date Yosef Israel MD [address] [facility] [place] [place] [address] PCP - General Family Medicine 04/20/14 Magazine Repairer Relationship Specialty Start Date End Date Yosef Israel MD [address] [facility] [place] [place] [address] PCP - General Family Medicine 04/20/14 Magazine Repairer Relationship Specialty Start Date End Date Yosef Israel MD [address] [facility] [place] [address] PCP - General Family Medicine 04/20/14 Magazine Repairer Relationship Specialty Start Date End Date Yosef Israel MD [facility] [place] [address] PCP - General Family Medicine 04/20/14 Magazine Repairer Relationship Specialty Start Date End Date Yosef Israel MD [facility] [place] [address] PCP - General Family Medicine 04/20/14 Magazine Repairer Relationship Specialty Start Date End Date Yosef Israel MD [facility] [place] [address] PCP - General Family Medicine 04/20/14 Magazine Repairer Relationship Specialty Start Date End Date Yosef Israel MD [facility] [place] [place] [address] PCP - General Family Medicine 04/20/14 Magazine Repairer Relationship Specialty Start Date End Date Yosef Israel MD [address] [facility] [place] [address] PCP - General Family Medicine 04/20/14 Magazine Repairer Relationship Specialty Start Date End Date Yosef Israel MD [address] [facility] [place] [address] PCP - General Family Medicine 1/29/15 Magazine Repairer Relationship Specialty Start Date End Date Yosef Israel MD [address] [place], [place] [id number] PCP - General [facility] 04/20/14 Magazine Repairer Relationship Specialty Start Date End Date Yosef Israel MD [address] [place], [place] [id number] PCP - General [facility] 04/20/14 Magazine Repairer Relationship Specialty Start Date End Date Yosef Israel MD [address] [facility], [place] [id number] PCP - [facility] 04/20/14 Magazine Repairer Relationship Specialty Start Date End Date Yosef Israel MD [address] [place], [place] [id number] PCP - [facility] 04/20/14 (unrecognized sect ion and content) No Status Records FoundNo Status Records Found INFORMATION SOURCE (unrecogn ized section and content) DATE CREATED AUTHOR AUTHOR'S ORGANIZ ATION 04/02/2023 [facility] FOR RECORDS PERTAINING TO PATIENTS WHO ARE OR HAVE BEEN ENROLLED IN A CHEMICAL DEPENDENCY/SUBSTANCEABUSE PROGRAM, SOME INFORMATION MAY BE OMITTED. This clinical summary was aggregated from multiple sources. Caution should be exercised in using it in the provision of clinical care. This summary normalizes information from multiple sources, and as a consequence, information in this document may materially change the coding, format and clinical context of patient data. In addition, data may be omitted in some cases. CLINICAL DECISIONS SHOULD BE BASED ON THE PRIMARY CLINICAL RECORDS. [employer] provides no warranty or guarantee of the accuracy or completeness of information in this document.
[2023-04-04] MEDS: 0.9% Normal Saline (1000mL) 1,000 ML 1000 ML IV (17:51)
[2023-04-04 18:03] LABS: Bacteria 0 SEEN /hpf (None Seen); Mucous, Urine 0 SEEN /hpf (<or=2+); Red Blood Cells-Urine 0 SEEN /hpf (0-5); Squamous Epithelial Cells - UA 0 SEEN /hpf (0-5); White Blood Cells 0 SEEN /hpf (0-5)
[2023-04-04 18:05] LABS: Absolute Lymphocyte Count 1.57 X10^3/uL (0.83-4.51); Absolute Neutrophil Count 3.7 X10^3/uL (2.0-7.7); Basophil# 0.04 X10^3/uL; Basophil% 0.7 % (0-1); Eosinophil# 0.22 X10^3/uL; Eosinophils% 3.7 % (0-5); Hematocrit 45.5 % (40-54); Lymphocyte # 1.57 X10^3/ul (0.83-4.51); Lymphocyte % 26.4 % (19-41); Mean Corp Hgb Conc 35.2 g/dL (32-36); Mean Corpuscular Hgb 28.5 pg (27.0-32.0); Mean Platelet Vol. 10.7 fl (6.2-12.0); Monocyte# 0.37 X10^3/uL; Monocyte% 6.2 % (0-10); NRBC Flagged by Analyzer 0 % (0-5); Neutrophil # 3.73 X10^3/uL (2.7-7.7); Neutrophil % 62.8 % (47-70); Platelet Count 199 K/mm3 (150-450); RBC Distribution Width CV 11.4 % (11.6-14.6); RBC Distribution Width SD 33.4 fl (35.1-43.9); Red Blood Count 5.62 M/mm3 (4.6-6.2); White Blood Count 5.9 K/mm3 (4.4-11.0)
[2023-04-04 18:14] LABS: Color, Urine Yellow (Yellow); Glucose, Dipstick Normal (Normal); Ketone-Dipstick Negative (Negative); Leukocyte Esterase-Dipstick Negative /ul (Negative); Nitrite-Dipstick Negative (Negative); Occult Blood-Urine Negative /ul (Negative); Protein-Dipstick 15 mg/dl (Negative); Urine Bilirubin Dipstick Negative (Negative); Urine Clarity Clear (Clear); Urine Urobilinogen Normal (Normal)
[2023-04-04 18:25] LABS: ALB/GLOB Ratio 1.3 RATIO (0.9-2.4); AST(SGOT) 21 U/L (15-37); Alanine Aminotransfer ALT/SGPT 64 U/L (16-61); Albumin, Serum 4.2 g/dL (3.2-5.0); Alkaline Phosphatase 56 U/L (45-117); Anion Gap 6 (5-15); BUN 14 mg/dL (7-18); BUN/Creat Ratio 11.8 RATIO (10-20); Calcium,Total 9.2 mg/dL (8.5-10.1); Chloride 106 mmol/L (98-107); Creatinine, Serum 1.19 mg/dL (0.70-1.30); EST Glomerular Filtration Rate 77 mL/min (>60); Est Glom Filt Rate - Afr Amer 93 mL/min (>60); Estimated Creatinine Clearance 101.44 ml/min; Globulin 3.3 g/dL (2.2-4.2); Glucose 103 mg/dL (74-106); Lipase 31 U/L (13-75); Potassium 3.8 mmol/L (3.5-5.1); Protein, Total 7.5 g/dL (6.4-8.2); Sodium Level 141 mmol/L (136-145)
--- NOTE | 2023-04-04 18:50 | RAD_ITS ---
STUDY: X-RAY CHEST REASON FOR EXAM: Male, 27 years old. Dyspnea TECHNIQUE: PA and lateral views of the chest. COMPARISON: None. FINDINGS: The lungs are clear and expanded. There is no demonstrated pleural abnormality. Normal size heart. Normal mediastinum and arnie. Normal visualized pulmonary arteries. Normal visualized aortic arch and descending thoracic aorta. Normal visualized thoracic spine. Normal visualized ribs, clavicles, and shoulders. There is no demonstrated abnormality of the visualized soft tissue structures of the upper abdomen. RAD/Chest PA and Lateral IMPRESSION: Normal x-ray examination of the chest. Electronically Signed: William Wright MD at 19:16 EST ,
== END 2023-04-04 19:54 | disposition home or self-care (01) ==
PROVIDERS: Emergency Provider Emergency Medicine; PCP Family Medicine; Visit Provider Emergency Medicine
DX: R41.0 Disorientation, unspecified (principal); R10.11 Right upper quadrant pain; F41.1 Generalized anxiety disorder; F32.9 Major depressive disorder, single episode, unspecified; K21.9 Gastro-esophageal reflux disease without esophagitis; Z79.899 Other long term (current) drug therapy
CPT/HCPCS: 71046; 76705; 80053; 81001; 82140; 83690; 85025; 99284; J7030

== ENCOUNTER 2023-09-24 00:58 | Emergency (ER) | payer MEDICAID, SELFPAY ==
[2023-09-24 01:00] VITALS: BP 140/84; PULSE 87; RESP 18; TEMP 523.8; TEMP 974.8; O2SAT 98; BMI 25.4
[2023-09-24 01:04] VITALS: BP 140/84; PULSE 86; RESP 18; TEMP 36.6; O2SAT 99
--- NOTE | 2023-09-24 01:12 | EKG12_ITS ---
Test Reason : CHEST OTHER Blood Pressure : / mmHG Vent. Rate : 082 BPM Atrial Rate : 082 BPM P-R Int : 140 ms QRS Dur : 086 ms QT Int : 376 ms P-R-T Axes : 033 078 058 degrees QTc Int : 439 ms Normal sinus rhythm with sinus arrhythmia Normal ECG Confirmed by KERI DOHERTY, RISHI ([id number]), communications editor JULIO REYEZ ([id number]) on 09/25/2023 9:34:38 AM Referred By: Confirmed By:RISHI SAAVEDRA MD
--- NOTE | 2023-09-24 01:20 | EDS_ITS ---
HPI History of Present Illness Chief Complaint: Chest Other Informant: patient Onset/Context/Timing Onset: Hours (10) Activity at onset: gradual and onset Timing: Continuous Quality: Positive for Tightness Location: Substernal Current Severity: Mild Maximum Severity: Mild Worsened By: Nothing Relieved By: Nothing (Tried albuterol inhaler) Associated Symptoms: Positive for Dyspnea and Cough; Negative for Nausea, Vomiting, Diaphoresis, Fever, Lightheadedness or Palpitations Narrative Narrative: 27-year-old male has been having chest tightness and shortness of breath all day since early this afternoon. Has a history of asthma that is mild and does not flareup very often so we cannot tell if it is his asthma or not, he denies any obvious wheezing has had a minor cough. No fevers or chills or production/sputum. He tried his albuterol inhaler couple times but it did not help anything and it has persisted so he presents for evaluation. He denies any leg pain or swelling. No pleuritic discomfort. No recent long travel/immobilization/surgery or hospitalization. No history of DVT or PE. Denies any hemoptysis. [facility] Medical History (Updated 09/24/23 @ 02:[address] Rigoberto Fournier MD) POTS (postural orthostatic tachycardia syndrome) Syncope Near syncope Unspecified asthma, uncomplicated Seizures Migraine with aura GERD (gastroesophageal reflux disease) Osteochondrosis Attention deficit disorder Generalized anxiety disorder Panic attacks Major depressive disorder, recurrent severe without psychotic features Home Medications ?Medication ?Instructions ?Recorded ?Last Taken ?Type buspirone 15 mg tablet 15 mg PO TID 11/14/20 Unknown History albuterol sulfate 90 mcg/actuation 2 puff inhalation Q6H PRN 11/19/21 Unknown History aerosol inhaler (Ventolin HFA) bronchospasm midodrine 5 mg tablet 5 mg PO TID 11/19/21 Unknown History aripiprazole 5 mg tablet 5 mg PO DAILY 09/24/23 Unknown History brexpiprazole 1 mg tablet (Rexulti) 1 mg PO DAILY 09/24/23 Unknown History desvenlafaxine succinate 50 mg 50 mg PO DAILY 09/24/23 Unknown History tablet,extended release 24 hr ergocalciferol (vitamin D2) 1,250 1,250 mcg PO QWEEK 09/24/23 Unknown History mcg (50,000 unit) capsule lorazepam 0.5 mg tablet 0.5 mg PO BID PRN PRN anxiety 09/24/23 Unknown History attack omega-3 acid ethyl esters 1 gram 2 cap PO DAILY 09/24/23 Unknown History capsule omeprazole 40 mg capsule,delayed 40 mg PO DAILY 09/24/23 Unknown History release prednisone 20 mg tablet 40 mg (2 x 20 mg) PO DAILY #8 09/24/23 Unknown Rx TABLETS Allergy/AdvReac Type Severity Reaction Status Date / Time pseudoephedrine HCl (From Allergy PT UNSURE Verified 09/24/23 01:09 Sudafed) OF REACTION RUNDIC Allergy PT UNSURE Uncoded 11/19/21 10:02 OF REACTION Family History Father Asthma Surgical History History of tonsillectomy and adenoidectomy Social History Smoking Status: Never smoker alcohol intake: never substance use type: does not use caffeine: Yes Type: coffee Number of servings: 1 ROS ROS ED Constitutional Constitutional ED: Denies chills or fever(s) Eyes Eyes: Denies change in vision or diplopia ENT ENT ED: Denies rhinorrhea or sore throat Cardiovascular Cardiovascular: Reports as per HPI and chest pain; Denies palpitations Respiratory/Chest Respiratory/Chest: Reports cough and dyspnea; Denies sputum Gastrointestinal Gastrointestinal: Denies abdominal pain, diarrhea, nausea or vomiting Genitourinary Genitourinary ED: Denies dysuria or hematuria Musculoskeletal Musculoskeletal: Denies back pain or neck pain Integumentary Denies abscess or rash Neurologic Neurologic: Denies headache(s), paresthesias or weakness Psychiatric Psychiatric: Denies suicidal thoughts EXAM Physical Exam Const Vital Signs: 09/24/23 01:00 09/24/23 01:04 09/24/23 01:04 Temperature 974.8 F H 97.8 F Temperature Source Oral Oral Pulse Rate 87 86 Respiratory Rate 18 18 Respiratory Pattern Normal Blood Pressure 140/84 H 140/84 H Blood Pressure Mean 102 102 Pulse Ox 98 99 Oxygen Delivery Method Room Air Room Air 09/24/23 01:25 Temperature Temperature Source Pulse Rate 76 Respiratory Rate 15 Respiratory Pattern Blood Pressure Blood Pressure Mean Pulse Ox Oxygen Delivery Method Positive well nourished and well developed General Appearance ED: well developed and NAD HEENT Reports moist mucous membranes normocephalic and atraumatic Eyes PERRL and EOMs intact bilaterally Neck full ROM, no lymphadenopathy, supple and no JVD Resp normal respiratory effort and clear to auscultation bilaterally Cardio regular rate, regular rhythm and no murmurs Rate: Negative for tachycardic GI non-tender and non-distended Auscultation: normoactive bowel sounds Palpation: soft Back/Spine no CVA tenderness General Back: other FROM Extremity normal to inspection General Extremety ED: Negative for edema, pulses abnormal or tenderness General Extremity: Negative for edema or pulses abnormal Neuro oriented x3, CN's II-XII intact bilaterally and no sensory deficits noted Sensorium / Orientation: awake and alert Motor Exam: strength 5/5 throughout Psych mental status grossly normal Skin no rashes or lesions noted and no wounds Heart Score History: Slightly/Non-Suspicious ECG: Normal Age: </= 45 years Risk Factors: No Risk Factors Troponin: </= Normal Limit Score: 0 MDM MDM MDM Narrative Medical decision making narrative: Patient's PERC score is 0, ruling out PE as etiology for the symptoms without need for further emergent workup. And considering cardiopulmonary etiologies including asthma, I obtained labs with a troponin and EKG, all normal. With a single troponin of less than 3 after 10 hours of continuous discomfort I do not think I need another/second measurement. Furthermore two-view chest x-ray my interpretation negative for pneumonia radiology was in agreement. I treated him empirically with an albuterol nebulizer treatment, he said it helped. He is doing well and I think reasonable to treat him for asthma given the situation. Will give him a dose of prednisone here as well as a few more days worth as a prescription he is comfortable with that overall plan and he has an albuterol inhaler at home. Lab Data Attestation: I reviewed the patient's lab results. Labs: Laboratory Results - last 24 hr 09/24/23 01:30 Sodium 140 Potassium 3.4 L Chloride 105 Carbon Dioxide 27.0 Anion Gap 8 BUN 18 Creatinine 1.29 Estim Creat Clear Calc 93.57 Est GFR (MDRD) Af Amer 85 Est GFR (MDRD) Non-Af 70 BUN/Creatinine Ratio 14.0 Glucose 97 Calcium 9.7 Troponin I High Sens < 3 L Radiography Diagnostic Testing: Clinical Impression(s) from Imaging Studies Chest X-Ray 09/24/23 01:43 IMPRESSION: No radiographic evidence of acute cardiopulmonary disease. Electronically Signed: Henna Lambert MD at 2:02 EDT , Rhythm Strip Rhythm Strip: Sinus Rhythm Rate: 85 Ectopy: None EKG Initial EKG: Attestation: I personally reviewed and interpreted this EKG as follows: Interpretation: Sinus Rhythm and No Acute Injury Pattern Comments: Normal EKG Discharge Plan Triage Chief Complaint: Chest Other ED Provider: Rigoberto Fournier Dx/Rx/DC Orders Clinical Impression: Acute asthma exacerbation Instructions: Asthma Action Plan Prescriptions: New prednisone 20 mg tablet 40 mg PO DAILY Qty: 8 0RF No Action buspirone 15 mg tablet 15 mg PO TID midodrine 5 mg tablet 5 mg PO TID albuterol sulfate [Ventolin HFA] 90 mcg/actuation HFA aerosol inhaler 2 puff inhalation Q6H PRN (Reason: bronchospasm) Patient Comments: INHALE 2 PUFFS BY MOUTH EVERY 6 HOURS NEEDED DIRECTED aripiprazole 5 mg tablet 5 mg PO DAILY Rexulti 1 mg tablet 1 mg PO DAILY desvenlafaxine succinate 50 mg tablet extended release 24 hr 50 mg PO DAILY omeprazole 40 mg capsule,delayed release(DR/EC) 40 mg PO DAILY lorazepam 0.5 mg tablet 0.5 mg PO BID PRN PRN (Reason: anxiety attack) ergocalciferol (vitamin D2) 1,250 mcg (50,000 unit) capsule 1,250 mcg PO QWEEK omega-3 acid ethyl esters 1 gram capsule 2 cap PO DAILY Primary Care Provider: Tyler Resendez Referrals: Tyler Resendez MD [Primary Care Provider] - 3-5 Days if not improving Activity Restrictions/Additional Instructions: Start prednisone prescription morning of 09/25/2023 since she received an initial dose in the emergency department. Take prednisone until the prescription is completely gone, which is 4 days total in addition to the dose she received in the ED. Use your albuterol inhaler as needed for symptoms. Print Language: Namibian Disposition Disposition: Home, Self Care
[2023-09-24] MEDS: Albuterol 2.5 MG/3 ML VIAL.NEB. INHALATION (01:22)
[2023-09-24 01:25] VITALS: PULSE 76; RESP 15
--- NOTE | 2023-09-24 01:43 | RAD_ITS ---
INDICATION: chest pain/sob EXAMINATION/TECHNIQUE: X-RAY - XR Chest 2 Views COMPARISON: No relevant prior comparison study available FINDINGS: LINES/DEVICES: None. LUNGS: No consolidation, edema or effusion. No pneumothorax. MEDIASTINUM AND CARDIOVASCULAR STRUCTURES: Cardiac silhouette not enlarged. Central airways and mediastinal contour are unremarkable. BONES AND SOFT TISSUES: Unremarkable. RAD/Chest PA and Lateral IMPRESSION: No radiographic evidence of acute cardiopulmonary disease. Electronically Signed: Henna Lambert MD at 2:02 EDT ,
[2023-09-24 02:12] LABS: Absolute Lymphocyte Count 2.42 X10^3/uL (0.83-4.51); Absolute Neutrophil Count 3.3 X10^3/uL (2.0-7.7); Basophil# 0.03 X10^3/uL; Basophil% 0.5 % (0-1); Eosinophil# 0.18 X10^3/uL; Eosinophils% 2.8 % (0-5); Hematocrit 44.8 % (40-54); Hemoglobin 15.4 g/dL (13.0-16.5); Lymphocyte # 2.42 X10^3/ul (0.83-4.51); Lymphocyte % 37.8 % (19-41); Mean Corp Hgb Conc 34.4 g/dL (32-36); Mean Corpuscular Hgb 27.8 pg (27.0-32.0); Mean Corpuscular Volume 80.9 fL (80-94); Mean Platelet Vol. 10.7 fl (6.2-12.0); Monocyte# 0.45 X10^3/uL; NRBC Flagged by Analyzer 0 % (0-5); Neutrophil # 3.29 X10^3/uL (2.7-7.7); Neutrophil % 51.3 % (47-70); Platelet Count 197 K/mm3 (150-450); RBC Distribution Width CV 11.4 % (11.6-14.6); RBC Distribution Width SD 33.2 fl (35.1-43.9); Red Blood Count 5.54 M/mm3 (4.6-6.2); White Blood Count 6.4 K/mm3 (4.4-11.0)
[2023-09-24 02:17] LABS: Anion Gap 8 (5-15); BUN 18 mg/dL (7-18); Calcium,Total 9.7 mg/dL (8.5-10.1); Chloride 105 mmol/L (98-107); Creatinine, Serum 1.29 mg/dL (0.70-1.30); EST Glomerular Filtration Rate 70 mL/min (>60); Est Glom Filt Rate - Afr Amer 85 mL/min (>60); Estimated Creatinine Clearance 93.57 ml/min; Glucose 97 mg/dL (74-106); Potassium 3.4 mmol/L (3.5-5.1); Sodium Level 140 mmol/L (136-145); Troponin-I HS < 3 pg/mL (3.0-78.0)
[2023-09-24] MEDS: predniSONE 20 MG Tablet 40 MG PO (02:34)
[2023-09-24 02:40] VITALS: BP 142/80; PULSE 78; RESP 16; TEMP 36.6; O2SAT 97
== END 2023-09-24 02:41 | disposition home or self-care (01) ==
PROVIDERS: Emergency Provider Emergency Medicine; PCP Family Medicine; Visit Provider Emergency Medicine
DX: J45.901 Unspecified asthma with (acute) exacerbation (principal); K21.9 Gastro-esophageal reflux disease without esophagitis; F98.8 Other specified behavioral and emotional disorders with onset usually occurring in childhood and adolescence; F32.A Depression, unspecified
CPT/HCPCS: 71046; 80048; 84484; 85025; 87631; 93005; 94640; 99284

== ENCOUNTER 2024-05-20 14:22 | Emergency (ER) | payer MEDICAID, SELFPAY ==
[2024-05-20 14:23] VITALS: BP 141/83; PULSE 87; RESP 18; TEMP 37; O2SAT 99; BMI 26.6
--- NOTE | 2024-05-20 15:15 | EX.ED.VIS.HA ---
HPI History of Present Illness Chief Complaint: Headache Informant: patient Onset/Context/Timing Onset: Today Context: Gradual Timing: Continuous Quality -Headache: Positive for Sharp Location: Top and back of his head Worsened by: Bright lights and sounds Relieved by: Closing his eyes Associated Symptoms/Injury Associated Symptoms: Positive for Nausea and Photophobia; Negative for Fever, Vomiting, Sore Throat, Sinus Pressure, Numbness, Tingling, Preceding Aura, Visual Changes, Blurred Vision or Visual Loss Injury - RAMOS: Negative for Direct Trauma Narrative Narrative: Patient presents with a headache that began today when he woke up. Patient states it is mainly over the top and back of his head. Patient describes the pain as sharp. Patient states it is worse with light and sound. Patient states it gets somewhat better when he closes his eye. Patient admits to some nausea but denies any vomiting. Patient denies any fevers but admits to some subjective chills. Patient states pain radiates into his neck. Patient denies any visual changes or scotoma. Patient denies any paresthesias or weakness. [facility] Medical History (Updated 05/20/24 @ 17:[address] Jose Mata, DO) POTS (postural orthostatic tachycardia syndrome) Syncope Near syncope Unspecified asthma, uncomplicated Seizures Migraine with aura GERD (gastroesophageal reflux disease) Osteochondrosis Attention deficit disorder Generalized anxiety disorder Panic attacks Major depressive disorder, recurrent severe without psychotic features Home Medications ?Medication ?Instructions ?Recorded ?Last Taken ?Type buspirone 15 mg tablet 15 mg PO TID 11/14/20 Unknown History albuterol sulfate 90 mcg/actuation 2 puff inhalation Q6H PRN 11/19/21 Unknown History aerosol inhaler (Ventolin HFA) bronchospasm midodrine 5 mg tablet 5 mg PO TID 11/19/21 Unknown History aripiprazole 5 mg tablet 5 mg PO DAILY 09/24/23 Unknown History brexpiprazole 1 mg tablet (Rexulti) 1 mg PO DAILY 09/24/23 Unknown History desvenlafaxine succinate 50 mg 50 mg PO DAILY 09/24/23 Unknown History tablet,extended release 24 hr ergocalciferol (vitamin D2) 1,250 1,250 mcg PO QWEEK 09/24/23 Unknown History mcg (50,000 unit) capsule lorazepam 0.5 mg tablet 0.5 mg PO BID PRN PRN anxiety 09/24/23 Unknown History attack omega-3 acid ethyl esters 1 gram 2 cap PO DAILY 09/24/23 Unknown History capsule omeprazole 40 mg capsule,delayed 40 mg PO DAILY 09/24/23 Unknown History release prednisone 20 mg tablet 40 mg (2 x 20 mg) PO DAILY #8 09/24/23 Unknown Rx TABLETS Allergy/AdvReac Type Severity Reaction Status Date / Time pseudoephedrine HCl (From Allergy PT UNSURE Verified 09/24/23 01:09 Sudafed) OF REACTION RUNDIC Allergy PT UNSURE Uncoded 11/19/21 10:02 OF REACTION Family History Father Asthma Surgical History History of tonsillectomy and adenoidectomy Social History Smoking Status: Never smoker alcohol intake: never substance use type: does not use caffeine: Yes Type: coffee Number of servings: 1 ROS ROS ED Constitutional Constitutional ED: Reports chills; Denies fever(s) Eyes Eyes: Denies blurry vision or change in vision ENT ENT ED: Denies rhinorrhea or sore throat Cardiovascular Cardiovascular: Denies chest pain or palpitations Respiratory/Chest Respiratory/Chest: Denies cough or dyspnea Gastrointestinal Gastrointestinal: Reports nausea; Denies vomiting Genitourinary Genitourinary ED: Denies dysuria or hematuria Musculoskeletal Musculoskeletal: Reports neck pain; Denies back pain Integumentary Denies abscess or rash Neurologic Neurologic: Reports headache(s); Denies weakness Allergic/Immunologic Allergic/Immunologic ED: Denies mouth swelling or urticaria EXAM Physical Exam Const Vital Signs: 05/20/24 14:23 05/20/24 16:23 Temperature 98.6 F Temperature Source Temporal Pulse Rate 87 Respiratory Rate 18 18 Blood Pressure 141/83 H Blood Pressure Mean 102 Pulse Ox 99 Oxygen Delivery Method Room Air Positive well nourished and well developed General Appearance ED: well developed and NAD HEENT Reports normocephalic and moist mucous membranes atraumatic Neck supple and no JVD Resp normal respiratory effort and clear to auscultation bilaterally Cardio regular rate and regular rhythm GI non-tender and non-distended Palpation: soft Extremity normal to inspection and full ROM General Extremety ED: Negative for edema or tenderness General Extremity: Negative for edema Neuro oriented x3, CN's II-XII intact bilaterally and no sensory deficits noted Timpson Coma Scale: document GCS findings Spontaneous Obeys Commands Oriented 15 Sensorium / Orientation: awake and alert Speech: speech normal Motor Exam: strength 5/5 throughout Psych mental status grossly normal MDM MDM MDM Narrative Medical decision making narrative: Patient was advised that this is most likely a migraine headache. Patient was given IV fluids, Reglan, and Benadryl. Treatment and Re-Evaluation Narrative: Patient was feeling better on reevaluation. Patient was given a dose of Toradol. Patient was instructed to rest in a dark quiet room. Patient was instructed to follow-up with his primary care physician in 5 to 7 days. Patient understood and was agreeable with the plan. All questions were answered. Discharge Plan Triage Chief Complaint: Headache ED Provider: Jose Mata Dx/Rx/DC Orders Clinical Impression: Headache, migraine, Elevated blood pressure reading without diagnosis of hypertension Instructions: ED, Migraine (Classical) Prescriptions: No Action buspirone 15 mg tablet 15 mg PO TID midodrine 5 mg tablet 5 mg PO TID albuterol sulfate [Ventolin HFA] 90 mcg/actuation HFA aerosol inhaler 2 puff inhalation Q6H PRN (Reason: bronchospasm) Patient Comments: INHALE 2 PUFFS BY MOUTH EVERY 6 HOURS NEEDED DIRECTED aripiprazole 5 mg tablet 5 mg PO DAILY Rexulti 1 mg tablet 1 mg PO DAILY desvenlafaxine succinate 50 mg tablet extended release 24 hr 50 mg PO DAILY omeprazole 40 mg capsule,delayed release(DR/EC) 40 mg PO DAILY lorazepam 0.5 mg tablet 0.5 mg PO BID PRN PRN (Reason: anxiety attack) ergocalciferol (vitamin D2) 1,250 mcg (50,000 unit) capsule 1,250 mcg PO QWEEK omega-3 acid ethyl esters 1 gram capsule 2 cap PO DAILY prednisone 20 mg tablet 40 mg PO DAILY Qty: 8 0RF Primary Care Provider: Tyler Resendez Referrals: Tyler Resendez MD [Primary Care Provider] - 5-7 Days Print Language: Bulgarian Disposition Disposition: Home, Self Care
[2024-05-20] MEDS: Metoclopramide 10 MG/2 ML Vial IV (16:16)
[2024-05-20] MEDS: 0.9% Normal Saline (1000mL) 1,000 ML 999 ML IV (16:16)
[2024-05-20] MEDS: DiphenhydrAMINE 50 MG/ML Syringe 25 MG IV (16:16)
[2024-05-20 16:23] VITALS: RESP 18
[2024-05-20] MEDS: Ketorolac 30 MG/ML Syringe IV (17:41)
[2024-05-20 17:46] VITALS: BP 142/100; PULSE 79; RESP 14; TEMP 36.6; O2SAT 100
== END 2024-05-20 17:46 | disposition home or self-care (01) ==
PROVIDERS: Emergency Provider Emergency Medicine; PCP Family Medicine; Visit Provider Emergency Medicine
DX: G43.909 Migraine, unspecified, not intractable, without status migrainosus (principal); R03.0 Elevated blood-pressure reading, without diagnosis of hypertension; K21.9 Gastro-esophageal reflux disease without esophagitis
CPT/HCPCS: 96361; 96374; 96375; 99282; A4216

== ENCOUNTER 2024-09-18 15:33 | Emergency (ER) | payer MEDICAID, SELFPAY ==
[2024-09-18 15:34] VITALS: BP 155/92; PULSE 94; RESP 16; TEMP 36.1; O2SAT 97; BMI 27.8
--- NOTE | 2024-09-18 15:47 | EDS_ITS ---
HPI History of Present Illness Chief Complaint: Headache Informant: patient Onset/Context/Timing Onset: Days (5) Context: Sudden Timing: Intermittent Quality -Headache: Positive for Other (Pulsating, stabbing) Location: Right parietal area Worsened by: Nothing Relieved by: Nothing Associated Symptoms/Injury Associated Symptoms: Positive for Nausea; Negative for Fever, Vomiting, Sore Throat, Sinus Pressure, Numbness, Tingling, Preceding Aura, Visual Changes, Blurred Vision, Photophobia or Visual Loss Injury - RAMOS: Negative for Direct Trauma or Fall Narrative Narrative: Patient presents with a right-sided headache that has been intermittent over the last 5 days. Patient states the pain is mainly over the right side of his head. Patient describes as pulsating and stabbing. Patient states it comes and goes. Patient states this is different than previous headaches. Patient states nothing makes it worse and nothing makes it better. Patient admits to some nausea but denies any vomiting. Patient admits to some scotoma. Patient denies any numbness or tingling. Patient denies any other visual changes. Patient denies any trauma or injury. [facility] Medical History (Updated 09/18/24 @ 18:[address] Jose Mata, DO) POTS (postural orthostatic tachycardia syndrome) Syncope Near syncope Unspecified asthma, uncomplicated Seizures Migraine with aura GERD (gastroesophageal reflux disease) Osteochondrosis Attention deficit disorder Generalized anxiety disorder Panic attacks Major depressive disorder, recurrent severe without psychotic features Home Medications ?Medication ?Instructions ?Recorded ?Last Taken ?Type buspirone 15 mg tablet 15 mg PO TID 11/14/20 Unknow n History albuterol sulfate 90 mcg/actuation 2 puff inhalation Q 6H PRN 11/19/21 Unknown History aerosol inhaler (Ventolin HFA) bronchospasm midodrine 5 mg tablet 5 mg PO TID 11/19/21 Unknown History aripiprazole 5 mg tablet 5 mg PO DAILY 09/24/23 Unkno wn History brexpiprazole 1 mg tablet (Rexulti) 1 mg PO DAILY 07/14 Unknown History desvenlafaxine succinate 50 mg 50 mg PO DAILY 09/24/23 Unknown History tablet,extended release 24 hr ergocalciferol (vitamin D2) 1,250 1,250 mcg PO QWEEK 0 09/24/23 Unknown History mcg (50,000 unit) capsule lorazepam 0.5 mg tablet 0.5 mg PO BID PRN PRN anxiet y 09/24/23 Unknown History attack omega-3 acid ethyl esters 1 gram 2 cap PO DAILY Unknown History capsule omeprazole 40 mg capsule,delayed 40 mg PO DAILY Unknown History release prednisone 20 mg tablet 40 mg (2 x 20 mg) PO DAILY # 8 09/24/23 Unknown Rx TABLETS Allergy/AdvReac Type Severity Reaction Status Date / Time pseudoephedrine HCl (From Allergy PT UNSURE Verified 09/18/24 15:33 Sudafed) OF REACTION RUNDIC Allergy PT UNSURE Uncoded 11/19/21 10:02 OF REACTION Family History Father Asthma Surgical History History of tonsillectomy and adenoidectomy Social History Smoking Status: Never smoker alcohol intake: never substance use type: does not use caffeine: Yes Type: coffee Number of servings: 1 ROS ROS ED Constitutional Constitutional ED: Reports chills; Denies fever(s) Eyes Eyes: Denies blurry vision or change in vision ENT ENT ED: Denies rhinorrhea or sore throat Cardiovascular Cardiovascular: Denies chest pain or palpitations Respiratory/Chest Respiratory/Chest: Denies cough or dyspnea Gastrointestinal Gastrointestinal: Reports nausea; Denies vomiting Genitourinary Genitourinary ED: Denies dysuria or hematuria Musculoskeletal Musculoskeletal: Denies back pain or neck pain Integumentary Denies abscess or rash Neurologic Neurologic: Reports headache(s); Denies weakness Allergic/Immunologic Allergic/Immunologic ED: Denies mouth swelling or urticaria EXAM Physical Exam Const Vital Signs: 09/18/24 15:34 09/18/24 17:33 Temperature 96.9 F L Temperature Source Temporal Pulse Rate 94 79 Respiratory Rate 16 16 Blood Pressure 155/92 H Blood Pressure Mean 113 Pulse Ox 97 98 Oxygen Delivery Method Room Air Positive well nourished and well developed General Appearance ED: well developed and NAD HEENT Reports normocephalic and moist mucous membranes atraumatic; Negative for temporal artery tenderness Eyes PERRL and EOMs intact bilaterally Neck supple, no meningeal signs and no JVD Resp normal respiratory effort and clear to auscultation bilaterally Cardio regular rate and regular rhythm GI non-tender and non-distended Palpation: soft Extremity normal to inspection and full ROM Neuro oriented x3, CN's II-XII intact bilaterally and no sensory deficits noted [place] Coma Scale: document GCS findings Spontaneous Obeys Commands Oriented 15 Sensorium / Orientation: awake and alert Speech: speech normal Motor Exam: strength 5/5 throughout Psych mental status grossly normal MDM MDM MDM Narrative Medical decision making narrative: Differential diagnosis includes migraine headache, tension headache, intracranial bleeding, and viral illness. CT scan of the brain will be obtained to assess for intracranial bleeding. CBC will be obtained to assess for leukocytosis and anemia. Basic metabolic profile will be obtained to assess for electrolyte abnormality and renal function. COVID-19, influenza, and RSV PCR will be obtained to assess for viral illness. Lab Data Attestation: I reviewed the patient's lab results. Lab results narrative: CBC was reviewed and was within normal limits. Basic metabolic profile was reviewed. Creatinine was slightly elevated at 1.22. The remainder is within normal limits. COVID-19 PCR was reviewed and was negative. Influenza PCR was reviewed and was negative for influenza A and influenza B. RSV PCR was reviewed and was negative. Labs: Laboratory Results - last 24 hr 09/18/24 16:02 WBC 6.8 RBC 5.54 Hgb 15.7 Hct 44.7 MCV 80.7 MCH 28.3 MCHC 35.1 RDW Std Deviation 33.2 L RDW Coeff of Radha 11.5 L Plt Count 196 MPV 10.3 Immature Gran % (Auto) 0.100 Neut % (Auto) 58.0 Lymph % (Auto) 29.5 [place] % (Auto) 7.5 Eos % (Auto) 4.3 Baso % (Auto) 0.6 Absolute Neuts (auto) 3.9 Absolute Lymphs (auto) 2.00 Nucleated RBC % 0 Sodium 139 Potassium 4.0 Chloride 102 Carbon Dioxide 26.0 Anion Gap 11 BUN 14 Creatinine 1.22 H Estim Creat Clear Calc 105.91 Est GFR (MDRD) Non-Af 82 BUN/Creatinine Ratio 11.1 Glucose 113 H Calcium 9.3 Radiography Diagnostic Testing: Clinical Impression(s) from Imaging Studies Brain CT 09/18/24 15:54 IMPRESSION: No acute intracranial process. Reading Location: [facility] CT scan of the brain was obtained. There is no acute intracranial abnormality. This was interpreted by the radiologist and was also independently reviewed by myself. Treatment and Re-Evaluation Narrative: Patient was given IV fluids, Reglan, and Benadryl. Patient had minimal relief with this. Patient was given a dose of Toradol, Imitrex, and Decadron. Patient was feeling better after this. Patient feels like he can be discharged home. Patient was instructed to rest in a dark quiet room. Patient was instructed to follow-up with his primary care physician in 5 to 7 days. Patient understood and was agreeable with the plan. All questions were answered. Discharge Plan Triage Chief Complaint: Headache ED Provider: Jose Mata Dx/Rx/DC Orders Clinical Impression: Headache Instructions: ED Headache Unspecified Prescriptions: No Action buspirone 15 mg tablet 15 mg PO TID midodrine 5 mg tablet 5 mg PO TID albuterol sulfate [Ventolin HFA] 90 mcg/actuation HFA aerosol inhaler 2 puff inhalation Q6H PRN (Reason: bronchospasm) Patient Comments: INHALE 2 PUFFS BY MOUTH EVERY 6 HOURS NEEDED DIRECTED aripiprazole 5 mg tablet 5 mg PO DAILY Rexulti 1 mg tablet 1 mg PO DAILY desvenlafaxine succinate 50 mg tablet extended release 24 hr 50 mg PO DAILY omeprazole 40 mg capsule,delayed release(DR/EC) 40 mg PO DAILY lorazepam 0.5 mg tablet 0.5 mg PO BID PRN PRN (Reason: anxiety attack) ergocalciferol (vitamin D2) 1,250 mcg (50,000 unit) capsule 1,250 mcg PO QWEEK omega-3 acid ethyl esters 1 gram capsule 2 cap PO DAILY prednisone 20 mg tablet 40 mg PO DAILY Qty: 8 0RF Primary Care Provider: Tyler Resendez Referrals: Tyler Resendez MD [Primary Care Provider] - 3-5 Days Print Language: Ukrainian Disposition Disposition: Home, Self Care
--- NOTE | 2024-09-18 15:54 | CT_ITS ---
PROCEDURE: BRAIN/HEAD WITHOUT CONTRAST 09/18/2024 REASON FOR EXAM: PAIN TECHNIQUE: BRAIN/HEAD WITHOUT CONTRAST Coronal and Sagittal reconstruction series were provided. One or more dose reduction techniques were used (e.g., Automated exposure control, adjustment of the mA and/or kV according to patient size, use of iterative reconstruction technique. RADIATION DOSE SUMMARY: DLP: 745 mGycm COMPARISON: None FINDINGS: There is no acute infarct, intracranial hemorrhage, or mass effect. There is no hydrocephalus or significant midline shift. No acute, depressed calvarial fractures. No large scalp hematomas. Retention cyst within the right maxillary sinus. CT/Brain/Head without Contrast IMPRESSION: No acute intracranial process. Reading Location: [id number]
[2024-09-18] MEDS: 0.9% Normal Saline (1000mL) 1,000 ML 999 ML IV (16:04)
[2024-09-18] MEDS: Metoclopramide 10 MG/2 ML Vial IV (16:04)
[2024-09-18] MEDS: DiphenhydrAMINE 50 MG/ML Syringe 25 MG IV (16:04)
--- OUTSIDE RECORDS SUMMARY | 2024-09-18 16:04 | XMS RPT_ITS | CCD ---
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 Name Role Phone Yosef Kinsey Unavailable Unavailable Yosef Resendez MD Primary Care Provider Yosef Resendez MD Primary Care Provider Yosef Resendez MD Primary Care Provider Yosef Resendez MD Primary Care Provider YOSEF RESENDEZ Primary Care Unavailable ANNABELLA NEFF Referring Unavailable ARIANA WARD Attending Unava ilYosef Osei MD Primary Care Provider [place] BOILER ERECTOR.Ligia REHMAN Unavailable George BOILER ERECTOR.Anirudh REHMAN Unavailable Elderronny, Yosef Primary Care Unavailable Rigoberto Fournier Attending Unavailable Elderbrock, Yosef Primary Care Unavailable Jose Mata Attending Unavailable [place] BOILER ERECTOR.Ligia REHMAN Unavailable Unavail able [place] BOILER ERECTOR.Garry REHMANley Unavailable ELDERBROCK, YOSEF Primary Care Unavailable ELDERBROCK, YOSEF Primary Care Unavailable LIGIA KUHN Attending Unavailable ELDERBROCK, YOSEF Primary Care Unavailable ISHA BECKETT Referring Unavailable ELDERBROCK, YOSEF Attending Unavailable ELDERBROCK, YOSEF Primary Care Unavailable ELDERBROCK, YOSEF Primary Care Unavailable ELDERBROCK, YOSEF Primary Care Unavailable ISHA BECKETT Referring Unavailable ISHA BECKETT Attending Unavailable ELDERBROCK, YOSEF Primary Care Unavailable SELF Referring Unavailable ISHA BECKETT Attending Unavailable ELDERBROCK, YOSEF Primary Care Unavailable ELDERBROCK, YOSEF Primary Care Unavailable ELDERBROCK, YOSEF Referring Unavailable RAJGURU, ISHA J Attending [facility] Referring Unavailable [facility], YOSEF Primary Care Unavailable [facility], YOSEF Primary Care Unavailable RAJGURU, ISHA J Referring Unavailable [facility] Primary Care Unavailable RAJGURU, ISHA J Referring Unavailable RAJGURU, ISHA J Attending Unavailable [facility], YOSEF Primary Care Unavailable ANIRUDH PAIGE Attending Unavailable [facility], YOSEF Attending Unavailable SELF Referring Unavailable [facility], YOSEF Primary Care Unavailable [facility], YOSEF Primary Care Unavailable RAJGURU, ISHA J Referring Unavailable RAJGURU, ISHA J Attending Unavailable [facility], YOSEF Primary Care Unavailable RAJGURU, ISHA J Referring Unavailable RAJGURU, ISHA J Attending Unavailable [facility], YOSEF Primary Care Unavailable RAJGURU, ISHA J Referring Unavailable RAJGURU, ISHA J Attending Unavailable Allergies Allergy Classification Reported Allergen(s) Allergy Type Date of Onset Reaction(s) Facility (20 sources) Brompheniramine / Pseudoephedrine; Translations: [BROMPHENIRAMINE-PS EUDOEPHEDRIN] Drug Allergy 04-07-19 06 [facility] (20 sources) Environmental: cats. dogs, horses [Other] Propensity to adverse reactions 01-14-20 08 Cough, Shortness of Breath [facility] (20 sources) Sympathomimetic Agents; Translations: [SYMPATHOMIMETIC AGENTS] Propensity to adverse reactions 03-01-20 02 [facility] Work Phone: (1 source) OTHER; Translations: [OTHER] Propensity to adverse reactions (disorder) 01-14-20 08 [facility] Other [place] (1 source) Pseudoephedrine Drug Allergy 09-24-19 24 [facility] (1 source) RUNDIC; Translations: [RUNDIC] Propensity to adverse reactions (disorder) 11-20-19 22 [facility] Medications Current Medications Medication Drug Class(es) Dates Sig (Normalized) Sig (Original) [id number] 200 actuat albuterol 0.09 mg/actuat metered dose inhaler (20 sources) beta2-Adrenergic Agonist Start: 07-11-2019 End: 11-05-2021 take 2 puff(s) by inhalation every six hours as needed albuterol HFA (PROVENTIL HFA, VENTOLIN HFA) 90 mcg/actuation inhaler Inhale 2 Puffs as instructed every 6 hours as needed. 1 Inhaler 5 11/05/2021 Active Comment on above: Inhale 2 Puffs as in structed every 6 hours as needed. amoxicillin 875 mg / clavulanate 125 mg oral tablet (1 source) Penicillin-class Antibacterial Start: 02-06-2022 End: 02-11-2022 take 1 tablet by mouth twice daily amoxicillin-clavul anic acid (AUGMENTIN) 875-125 mg per tablet Take 1 tablet by mouth twice daily for 5 days. 10 tablet 0 02/06/2022 02/11/2022 Active Comment on above: Take 1 tablet by aquiles th twice daily for 5 days. ARIPiprazole 5 mg oral tablet (20 sources) Atypical Antipsychotic Start: 07-14-2022 End: 07-09-2023 take 1 tablet by mouth once daily ARIPiprazole (ABILIFY) 5 mg tablet Take 1 tablet by mouth once daily. 90 tablet 0 04/10/2023 05/14/2023 Discontinued (Side Effects) Start: 04-09-2021 End: 07-14-2022 take 1 tablet by mouth once daily ARIPiprazole (ABILIFY) 2 mg tablet Take 1 tablet by mouth once daily. 30 tablet 5 05/26/2022 07/14/2022 Discontinued Comment on above: Take 1 tablet by aquiles once daily. azithromycin 250 mg oral tablet (2 sources) Macrolide Antimicrobial Start: 02-23-20 End: 02-28-20 azithromycin (ZITHROMAX Z-GRECIA) 250 mg tablet Indications: Bacterial sinusitis , Bronchitis Take 2 tablets day one, then, 1 tablet daily until gone. 6 tablet 02/23/2024 02/28/2024 Active benzonatate 100 mg oral capsule (6 sources) Non-narcotic Antitussive Start: 02-21-20 End: 03-02-20 take 2 capsules by mouth three times daily as needed benzonatate (TESSALON PERLE) 100 mg capsule Indications: Viral URI with cough Take 2 capsules by mouth three times a day as needed for up to 10 days. 60 capsule 02/21/2024 03/02/2024 Active brexpiprazole 1 mg oral tablet (20 sources) Atypical Antipsychotic Start: 11-19-19 End: 07-27-20 25 take 1 tablet by mouth once daily at bedtime brexpiprazole (REXULTI) 1 mg tablet Take 1 tablet by mouth daily at bedtime. 90 tablet 07/18/2024 10/16/2024 Active Start: 06-26-2023 End: 10-22-2023 take 1 tablet by mouth once daily brexpiprazole (REXULTI) 1 mg tablet Take 1 tablet by mouth once daily. 30 tablet 1 06/26/2023 10/22/2023 Discontinued (Course of therapy completed) Start: 05-14-2023 End: 06-28-2023 take 1 tablet by mouth once daily brexpiprazole (REXULTI) 0.5 mg tablet Take 1 tablet by mouth once daily. 30 tablet 05/14/2023 05/29/2023 Discontinued Comment on above: Take 1 tablet by aquiles th once daily. busPIRone hydrochloride 30 mg oral tablet (20 sources) Start: 07-18-2024 End: 09-16-2024 take 1 tablet by mouth twice daily busPIRone 30 mg tablet Take 1 tablet by mouth two times a day. 60 tablet 1 07/18/2024 09/16/2024 Active Start: 04-09-2021 End: 07-24-2024 take 1 tablet by mouth three times daily busPIRone (BUSPAR) 15 mg tablet Take 1 tablet by mouth three times a day. 270 tablet 04/25/2024 07/24/2024 Active Start: 07-13-2020 End: 09-07-2020 take 1 tablet by mouth three times daily busPIRone (BUSPAR) 10 mg tablet Indications: Anxiety and depression Take 1 tablet by mouth three times daily. 90 tablet 5 07/13/2020 09/07/2020 Discontinued Comment on above: Take 1 tablet by aquiles th three times daily. Take 1 tablet by aquiles th three times a day. 24 hr desvenlafaxine succinate 50 mg extended release oral tablet (20 sources) Serotonin and Norepinephrine Reuptake Inhibitor Start: End: take 1 tablet by mouth once daily desvenlafaxine ER (PRISTIQ) 50 mg 24 hr tablet Indications: CHARLES (generalized anxiety disorder) Take 1 tablet by mouth once daily. 90 tablet 07/18/2024 01/14/2025 Active Start: 05-29-2023 End: 08-25-2023 take 1 tablet by mouth once daily desvenlafaxine ER (PRISTIQ) 50 mg 24 hr tablet Take 1 tablet by mouth once daily. 30 tablet 1 05/29/2023 06/26/2023 Discontinued Start: 04-10-2023 End: 07-09-2023 take 1 tablet by mouth once daily desvenlafaxine ER (PRISTIQ) 100 mg 24 hr tablet Take 1 tablet by mouth once daily. 90 tablet 04/10/2023 05/29/2023 Discontinued Start: 10-31-2022 End: 03-09-2023 take 1 tablet by mouth once daily desvenlafaxine ER (PRISTIQ) 50 mg 24 hr tablet Take 1 tablet by mouth once daily. 90 tablet 0 11/25/2022 03/09/2023 Discontinued Start: 08-04-2022 End: 11-25-2022 take 1 tablet by mouth once daily desvenlafaxine ER (PRISTIQ) 25 mg 24 hr tablet Take 1 tablet by mouth once daily for 7 days. 7 tablet 0 08/04/2022 11/25/2022 Discontinued (Course of therapy completed) Start: 08-04-2022 End: 09-03-2022 take 1 tablet by mouth once daily desvenlafaxine ER (PRISTIQ) 50 mg 24 hr tablet Take 1 tablet by mouth once daily. Start after completing 7 days of Pristiq 25 mg first. 30 tablet 2 08/04/2022 Active Comment on above: Take 1 tablet by aquiles once daily for 7 days. Take 1 tablet by aquiles once daily. Start after completing 7 days of Pristiq 25 mg first. TAKE 1 TABLET BY AQUILES TH ONCE DAILY. START AFTER COMPLETING 7 DAYS OF 25MG FIRST. Take 1 tablet by aquiles once daily. dextromethorphan hydrobromide 2 mg/ml / guaiFENesin 20 mg/ml oral solution (2 sources) Uncompetitive I-wvrjfz-O-aspartate Receptor Antagonist, Sigma-1 Agonist Start: End: take 5 mL by mouth three times daily as needed guaiFENesin-dextromet horphan (ROBITUSSIN DM) 100-10 mg/5 mL syrup Indications: Viral URI with cough Take 5 mL by mouth three times a day as needed for up to 7 days. 105 mL 04/09/2024 04/16/2024 Active doxycycline hyclate 100 mg oral tablet (1 source) Tetracycline-class Drug Start: End: take 1 tablet by mouth twice daily doxycycline (VIBRA-TABS) 100 mg tablet Indications: Bacterial sinusitis , Bronchitis Take 1 tablet by mouth two times a day for 10 days. 20 tablet 02/29/2024 03/10/2024 Active ergocalciferol 1.25 mg oral capsule (20 sources) Provitamin D2 Compound Start: 025 End: take 1 capsule by mouth every week ergocalciferol 50,000 unit capsule (VITAMIN D2, DRISDOL) Take 1 capsule by mouth one time a week. 12 capsule 04/25/2024 Active Start: 08-04-2022 End: 02-15-2024 take 1 capsule by mouth every week ergocalciferol 50,000 unit capsule (VITAMIN D2, DRISDOL) Take 1 capsule by mouth one time a week. 12 capsule 04/13/2023 02/15/2024 Discontinued (Course of therapy completed) Comment on above: Take 1 capsule by [facility] one time a week. fluticasone propionate 0.05 mg/actuat metered dose nasal spray (20 sources) Corticosteroid Start: End: take 2 spray(s) by mouth once daily fluticasone (FLONASE) 50 mcg/actuation nasal spray Indications: Viral URI with cough Use 2 Sprays in each nostril once daily for 7 days. Rinse mouth after use. 1 Each 04/09/2024 04/16/2024 Active Start: 03-03-2019 End: 11-23-2023 take 2 spray(s) by mouth once daily fluticasone (FLONASE) 50 mcg/actuation nasal spray Indications: Mild intermittent asthma, uncomplicated Use 2 Sprays in each nostril once daily. Rinse mouth after use. 1 Bottle 5 03/03/2019 11/23/2023 Discontinued (Course of therapy completed) Comment on above: Use 2 Sprays in each nostril once daily. Rinse mouth after use. LORazepam 0.5 mg oral tablet (20 sources) Benzodiazepine Start: End: take 1 tablet by mouth twice daily as needed for anxiety LORazepam (ATIVAN) 0.5 mg Indications: CHARLES (generalized anxiety disorder) Take 1 tablet by mouth two times a day as needed (severe anxiety symptoms) for up to 30 days. 15 tablet 07/18/2024 08/17/2024 Active Start: 04-25-2024 End: 05-25-2024 take 1 tablet by mouth twice daily as needed for anxiety LORazepam (ATIVAN) 0.5 mg Indications: CHARLES (generalized anxiety disorder) Take 1 tablet by mouth two times a day as needed (severe anxiety symptoms) for up to 30 days. 15 tablet 04/25/2024 05/25/2024 Active Start: 02-15-2024 End: 03-16-2024 take 1 tablet by mouth twice daily as needed for anxiety LORazepam (ATIVAN) 0.5 mg Indications: CHARLES (generalized anxiety disorder) Take 1 tablet by mouth two times a day as needed (severe anxiety symptoms) for up to 30 days. 15 tablet 1 02/15/2024 03/16/2024 Active Start: 11-06-2023 End: 12-19-2023 take 1 tablet by mouth twice daily as needed for anxiety LORazepam (ATIVAN) 0.5 mg Indications: CHARLES (generalized anxiety disorder) Take 1 tablet by mouth two times a day as needed (severe anxiety symptoms) for up to 30 days. 15 tablet 1 11/19/2023 12/19/2023 Active Start: 05-14-2023 End: 07-26-2023 take 1 tablet by mouth twice daily as needed for anxiety LORazepam (ATIVAN) 0.5 mg Indications: CHARLES (generalized anxiety disorder) Take 1 tablet by mouth two times a day as needed (severe anxiety symptoms) for up to 30 days. 15 tablet 0 06/26/2023 07/26/2023 Active Comment on above: Take 1 tablet by aquiles th two times a day as needed (severe anxiety symptoms) for up to 30 days. meloxicam 15 mg oral tablet (7 sources) Nonsteroidal Anti-inflammatory Drug Start: 06-22-19 take 1 tablet by mouth once daily meloxicam (MOBIC) 15 mg tablet Indications: Left hip pain , Chronic pain of left knee Take 1 tablet by mouth once daily. 30 tablet 1 06/21/2024 Active methocarbamol 500 mg oral tablet (1 source) Muscle Relaxant Start: 10-01-19 End: 10-04-19 take 1 tablet by mouth every six hours as needed methocarbamol (ROBAXIN) 500 mg tablet Take 1 tablet by mouth every 6 hours as needed (Pain) for up to 3 days. 12 tablet 0 09/30/2022 10/03/2022 Active Comment on above: Take 1 tablet by aquiles th every 6 hours as needed (Pain) for up to 3 days. midodrine hydrochloride 5 mg oral tablet (20 sources) alpha-Adrenergic Agonist Start: 07-31-19 End: 07-26-19 take 1 tablet by mouth three times daily midodrine (PROAMITINE) 5 mg tablet Indications: Dizziness , POTS (postural orthostatic tachycardia syndrome) Take 1 tablet by mouth three times a day. 90 tablet 5 07/25/2024 Active Start: 07-02-2021 End: 07-30-2021 take 1 tablet by mouth three times daily midodrine (PROAMATINE) 2.5 mg tablet Take 1 tablet by mouth three times daily. 90 tablet 1 07/02/2021 07/30/2021 Discontinued Comment on above: Take 1 tablet by aquiles th three times daily. Take 1 tablet by aquiles th three times a day. omega-3 fatty acids 1,000 mg cap (20 sources) Start: 08-29-2024 End: 09-28-2024 take 2 capsules by mouth once daily omega-3 fatty acids 1,000 mg cap Take 2 capsules by mouth once daily. 60 capsule 08/29/2024 09/28/2024 Active Start: 07-25-2024 End: 08-29-2024 take 2 capsules by mouth once daily omega-3 fatty acids 1,000 mg cap Take 2 capsules by mouth once daily. 30 capsule 1 07/25/2024 08/29/2024 Discontinued Start: 07-25-2024 End: 08-24-2024 take 2 capsules by mouth once daily omega-3 fatty acids 1,000 mg cap Take 2 capsules by mouth once daily. 30 capsule 1 07/25/2024 08/24/2024 Active Start: 06-20-2024 End: 07-25-2024 take 2 capsules by mouth once daily omega-3 fatty acids 1,000 mg cap Take 2 capsules by mouth once daily. 30 capsule 1 06/20/2024 07/25/2024 Discontinued Start: 06-20-2024 End: 07-20-2024 take 2 capsules by mouth once daily omega-3 fatty acids 1,000 mg cap Take 2 capsules by mouth once daily. 30 capsule 1 06/20/2024 07/20/2024 Active Start: 05-16-2024 End: 06-20-2024 take 2 capsules by mouth once daily omega-3 fatty acids 1,000 mg cap Take 2 capsules by mouth once daily. 30 capsule 1 05/16/2024 06/20/2024 Discontinued Start: 05-16-2024 End: 06-15-2024 take 2 capsules by mouth once daily omega-3 fatty acids 1,000 mg cap Take 2 capsules by mouth once daily. 30 capsule 1 05/16/2024 06/15/2024 Active Start: 04-25-2024 End: 05-16-2024 take 1 capsule by mouth once daily omega-3 fatty acids 1,000 mg cap Take 1 capsule by mouth once daily. 30 capsule 1 04/25/2024 05/16/2024 Discontinued Start: 04-25-2024 End: 06-24-2024 take 1 capsule by mouth once daily omega-3 fatty acids 1,000 mg cap Take 1 capsule by mouth once daily. 30 capsule 1 04/25/2024 06/24/2024 Active Start: 04-29-2023 End: 05-05-2023 take 2 capsules by mouth once daily omega-3 fatty acids 1,000 mg cap Take 2 capsules by mouth once daily. 180 capsule 0 04/29/2023 05/05/2023 Discontinued (Duplicate Entry) Start: 04-29-2023 End: 07-28-2023 take 2 capsules by mouth once daily omega-3 fatty acids 1,000 mg cap Take 2 capsules by mouth once daily. 180 capsule 0 04/29/2023 07/28/2023 Active Start: 04-10-2023 End: 04-29-2023 take 2 capsules by mouth once daily omega-3 fatty acids 1,000 mg cap Take 2 capsules by mouth once daily. 180 capsule 0 04/10/2023 04/29/2023 Discontinued Start: 08-04-2022 End: 04-10-2023 take 1 capsule by mouth once daily omega-3 fatty acids 1,000 mg cap Take 1 capsule by mouth once daily. 30 capsule 4 08/04/2022 04/10/2023 Discontinued Start: 08-04-2022 take 1 capsule by mo uth once daily omega-3 fatty acids 1,000 mg cap Take 1 capsule by mouth once daily. 30 capsule 4 08/04/2022 Active Start: 08-04-2022 End: 09-03-2022 take 1 capsule by mouth once daily omega-3 fatty acids 1,000 mg cap Take 1 capsule by mouth once daily. 30 capsule 4 08/04/2022 09/03/2022 Active Comment on above: Take 1 capsule by mo uth once daily. Take 2 capsules by m outh once daily. omeprazole 40 mg delayed release oral capsule (20 sources) Proton Pump Inhibitor Start: 04-04-19 End: 11-02-19 take 1 capsule by mouth once daily omeprazole (PRILOSEC) 40 mg capsule Take 1 capsule by mouth once daily. 30 capsule 5 05/05/2024 11/01/2024 Active Comment on above: Take 1 capsule by mo uth once daily. ondansetron 4 mg disintegrating oral tablet (20 sources) Serotonin-3 Receptor Antagonist Start: 04-10-19 End: 04-11-19 25 take 1 tablet by mouth every six hours as needed for nausea ondansetron orally disintegrating (ZOFRAN ODT) 4 mg disintegrating tablet Indications: Nausea vomiting and diarrhea , Norovirus Take 1 tablet by mouth every 6 hours as needed for nausea/vomiting. 30 tablet 3 04/11/2024 Active Comment on above: Take 1 tablet by aquiles th every 6 hours as needed for nausea/vomiting. SUMAtriptan 50 mg oral tablet (20 sources) Serotonin-1b and Serotonin-1d Receptor Agonist Start: 06-04-19 22 SUMAtriptan (IMITREX) 50 mg tablet Indications: Migraine without aura and without status migrainosus, not intractable Take 1 tablet by mouth as directed. TAKE AT ONSET OF MIGRAINE. MAY REPEAT X 1 IF NEEDED. 9 tablet 3 06/03/2021 Active Comment on above: Take 1 tablet by aquiles th as directed. TAKE AT ONSET OF MIGRAINE. MAY REPEAT X 1 IF NEEDED. Completed/Discontinued Medications Medication Drug Class(es) Dates Sig (Normalized) Sig (Original) atropine sulfate 0.025 mg / diphenoxylate hydrochloride 2.5 mg oral tablet (18 sources) Anticholinergic, Cholinergic Muscarinic Antagonist, Antidiarrheal Start: 02-10-2022 End: 05-05-2023 take 1 tablet by mouth four times daily as needed diphenoxylate-atr opine (LOMOTIL) 2.5-0.025 mg per tablet Indications: Diarrhea, unspecified type , Nausea and vomiting, unspecified vomiting type Take 1 tablet by mouth four times daily as needed for up to 30 days. 15 tablet 1 02/10/2022 05/05/2023 Discontinued (Discontinued by Patient) Comment on above: Take 1 tablet by [facility] four times daily as needed for up to 30 days. bifidobacterium infantis 4 mg oral capsule (20 sources) Start: 05-05-2023 End: 06-21-2024 take 1 capsule by mouth once daily ALIGN 4 mg cap Indications: Loose stools Take 1 capsule by mouth once daily 42 capsule 08/10/2023 06/21/2024 Discontinued (Course of therapy completed) Comment on above: Take 1 capsule by [facility] once daily. bisacodyl 5 mg delayed release oral tablet (20 sources) Stimulant Laxative Start: 05-22-2023 End: 06-21-2024 bisacodyl EC (DULCOLAX, BISACODYL,) 5 mg EC tablet Indications: Elevated fecal calprotectin , Loose stools Refer to bowel prep instructions. 4 tablet 05/22/2023 06/21/2024 Discontinued (Course of therapy completed) Comment on above: Refer to bowel prep instructions. ESCITALOPRAM OXALATE TABS (2 sources) Serotonin Reuptake Inhibitor Start: 10-03-2016 LEXAPRO TABS take as directed ESCITALOPRAM OXALATE TABS [id number] Yosef Kaplan [employer]LE [employer]EVEL[employer]ACHINE-C FLUoxetine 40 mg oral capsule (20 sources) Serotonin Reuptake Inhibitor Start: 05-26-2022 End: 07-14-2022 take 1 capsule by mouth once daily FLUoxetine (PROZAC) 20 mg capsule Take 1 capsule by mouth once daily. 30 capsule 2 05/26/2022 07/14/2022 Discontinued (Course of therapy completed) Start: 01-17-2022 End: 10-12-2022 take 1 capsule by mouth once daily FLUoxetine (PROZAC) 40 mg capsule Take 1 capsule by mouth once daily. 90 capsule 0 07/14/2022 08/04/2022 Discontinued (Course of therapy completed) Start: 10-14-2021 End: 01-17-2022 take 1 capsule by mouth once daily FLUoxetine (PROZAC) 20 mg capsule Take 1 capsule by mouth once daily. 30 capsule 0 12/09/2021 01/17/2022 Discontinued Comment on above: Take 1 capsule by mo uth once daily. Take 1 capsule by mo uth once daily. Take with 20 mg dose. hydrOXYzine pamoate 25 mg oral capsule (20 sources) Antihistamine Start: 08-24-19 End: 05-27-19 take 1 capsule by mouth every eight hours as needed hydrOXYzine pamoate (VISTARIL) 25 mg capsule Take 1 capsule by mouth three times daily as needed. 30 capsule 2 08/23/2021 05/26/2022 Discontinued (Lack of Efficacy) Comment on above: Take 1 capsule by mo uth three times daily as needed. omega-3 acid ethyl esters (prison) 1000 mg oral capsule (20 sources) Start: 04-02-19 End: 04-25-19 omega-3 acid ethyl esters (LOVAZA) 1 gram capsule TAKE 1 CAPSULE BY MOUTH ONCE DAILY IN THE AFTERNOON 30 capsule 04/02/2023 04/25/2024 Discontinued Start: 02-04-2023 End: 03-09-2023 omega-3 acid ethyl esters (L OVAZA) 1 gram capsule Take 1 capsule by mouth once daily 30 capsule 0 02/04/2023 03/09/2023 Discontinued Comment on above: Take 1 capsule by mo uth once daily TAKE 1 CAPSULE BY MO UTH ONCE DAILY IN THE AFTERNOON polyethylene glycol 3350 04278 mg powder for oral solution (20 sources) Osmotic Laxative Start: End: polyethylene glycol 3350 (MIRALAX) 17 gram/dose powder Indications: Elevated fecal calprotectin , Loose stools Refer to bowel prep instructions. 238 g 05/22/2023 02/15/2024 Discontinued (Course of therapy completed) Comment on above: Refer to bowel prep instructions. polyethylene glycol 3350 [id number] mg / potassium chloride 2970 mg / sodium bicarbonate 6740 mg / sodium chloride 5860 mg / sodium sulfate 44844 mg powder for oral solution (1 source) Osmotic Laxative Start: End: peg 3350-Electrolytes (GOLYTELY) 236-22.74-6.74 -5.86 gram suspension Take 4,000 mL by mouth one time only for 1 dose. 1 Each 0 03/19/2022 03/19/2022 Comment on above: Take 4,000 mL by aquiles one time only for 1 dose. psyllium 6000 mg powder for oral suspension (20 sources) Start: End: take 1 dose by mouth once daily psyllium husk (KONSYL) 6 gram pwpk packet Indications: Loose stools Take 1 Packet by mouth once daily. 30 Each 2 05/05/2023 06/21/2024 Discontinued (Course of therapy completed) Comment on above: Take 1 Packet by aquiles once daily. sucralfate 1000 mg oral tablet (20 sources) Aluminum Complex Start: End: take 1 tablet by mouth at bedtime sucralfate (CARAFATE) 1 gram tablet Indications: Nausea vomiting and diarrhea , Gastroesophageal reflux disease with esophagitis, unspecified whether hemorrhage , Epigastric pain , Generalized abdominal pain Take 1 tablet by mouth before meals and at bedtime. 120 tablet 2 04/10/2023 02/15/2024 Discontinued (Discontinued by Patient) Comment on above: Take 1 tablet by aquiles before meals and at bedtime. 24 hr venlafaxine 37.5 mg extended release oral capsule (20 sources) Serotonin and Norepinephrine Reuptake Inhibitor Start: End: take 1 capsule by mouth once daily venlafaxine ER (EFFEXOR XR) 37.5 mg 24 hr capsule Indications: Anxiety and depression Take 1 capsule by mouth once daily. 90 capsule 1 09/09/2021 10/14/2021 Discontinued (Lack of Efficacy) Start: 06-10-2021 End: 08-01-2021 take 1 capsule by mouth once daily venlafaxine ER (EFFEXOR XR) 37.5 mg 24 hr capsule Indications: Anxiety and depression Take 1 capsule by mouth once daily. 90 capsule 0 07/02/2021 Active Start: 04-01-2021 End: 11-05-2021 take 1 capsule by mouth once daily venlafaxine ER (EFFEXOR XR) 75 mg 24 hr capsule Indications: Anxiety and depression Take 1 capsule by mouth once daily. 30 capsule 3 07/02/2021 11/05/2021 Discontinued Start: 07-09-2020 End: 10-14-2021 take 1 capsule by mouth once daily venlafaxine ER (EFFEXOR XR) 150 mg 24 hr capsule Indications: Anxiety and depression Take 1 capsule by mouth once daily. 30 capsule 5 07/09/2020 10/14/2021 Discontinued (Side Effects) Comment on above: Take 1 capsule by mo uth once daily. Take 1 capsule by mo uth once daily Problems Active Problems Problem Classification Problem Date Documented Da te Episodic/Chronic Adjustment disorders (1 source) Grief finding; Translations: [Adjustment disorder with depressed mood] 04-25-2024 Chronic Administrative/social admission (5 sources) Encounter for pre-employment examination;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 Facility: [facility] Address: [address] [place] [address] Performed By: #### 2 4323-8 ####[facility] MILLTOWNCLIA [id number] [place] [address] [place]#### 93000-7 ####[facility]ORATORYCLIA [id number] [address] [place] MILLWNCLIA [id number] [place] [address] [place] CO2 [Moles/Vol] 25 mmol/L Normal 22-30 [facility] Comment on above: Order Comment: Speci men Type: BLOOD SPECIMENOrdering Facility: [facility] Address: [address] [place] [address] Performed By: #### 2 4323-8 ####[facility] MILLTOWNCLIA [id number] [place] [address] [place]#### 47773-7 ####[facility]ATORYCLIA [id number] [address] [facility] MILLTOWNCLIA [id number] [place] [address] [place] Creatinine [Mass/Vol] 1.10 mg/dL Normal 0.73-1.22 [facility] Comment on above: Order Comment: Speci men Type: BLOOD SPECIMENOrdering Facility: [facility] Address: [address] [place] [address] Performed By: #### 2 4323-8 ####[facility] MILLTOWNCLIA [id number] [place] [address] [place]#### 07229-8 ####[facility]ATORYCLIA [id number] [address] [id number] [place] [address] [place] Creatinine and Glomerular filtration rate.predicted panel (S/P/Bld) 93 mL/min/1.73m??? Normal >=60 [facility] Comment on above: Order Comment: Seymour ventura Type: BLOOD SPECIMENOrdering Facility: [facility] Address: [address] [place] [address] Result Comment: Sera mated Glomerular Filtration Rate (eGFR) is calculated using the 2020 CKD-EPI creatinine equation. This equation utilizes serum creatinine, sex, and age as parameters. The creatinine assay has traceable calibration to isotope dilution-mass spectrometry. Refer to KDIGO guidelines for clinical interpretation. In patients with unstable renal function, e.g. those with acute kidney injury, the eGFR may not accurately reflect actual GFR. Performed By: #### 2 4323-8 ####[facility] [id number] [address] STATES OF [place]#### 47797-5 ####[facility] HOSPITALIA [id number] [address] [id number] [place] [address] [place] Glucose [Mass/Vol] 105 mg/dL High 74-99 [facility] Comment on above: Order Comment: Seymour ventura Type: BLOOD SPECIMENOrdering Facility: [facility] Address: [address] [place] [address] Result Comment: The [place] Diabetes Association (ADA) provides guidance for cutoff values for fasting glucose and random glucose. The ADA defines fasting as no caloric intake for at least 8 hours. Fasting plasma glucose results between 100 to 125 mg/dL indicate increased risk for diabetes (prediabetes). Fasting plasma glucose results greater than or equal to 126 mg/dL meet the criteria for diagnosis of diabetes. In the absence of unequivocal hyperglycemia, results should be confirmed by repeat testing. In a patient with classic symptoms of hyperglycemia or hyperglycemic crisis, random plasma glucose results greater than or equal to 200 mg/dL meet the criteria for diagnosis of diabetes. Reference: Standards of Medical Care in Diabetes 2016, [place] Diabetes Association. Diabetes Care. 2016.39(Suppl 1). Performed By: #### 2 4323-8 ####[facility] MILLTOWNCLIA [id number] [place] [address] [place]#### 81718-4 ####[facility] LABORATORYCLIA [id number] [address] [id number] [place] [address] [place] Potassium [Moles/Vol] 4.4 mmol/L Normal 3.7-5.1 [facility] Comment on above: Order Comment: Speci men Type: BLOOD SPECIMENOrdering Facility: [facility] Address: [address] [place] [address] Performed By: #### 2 4323-8 ####[facility]CL[facility] [id number] [address] [place]#### 27637-6 ####[facility] LABORATORYCLIA [id number] [address]WIALIA [id number] [place] [address] [place] Protein [Mass/Vol] 7.7 g/dL Normal 6.3-8.0 [facility] Comment on above: Order Comment: Speci men Type: BLOOD SPECIMENOrdering Facility: [facility] Address: [address] [place] [address] Performed By: #### 2 4323-8 ####[facility] MILLTOWNCLIA [id number] [place] [address] [place]#### 44742-3 ####[facility]ATORYCLIA [id number] [address] STATES [facility] [id number] [place] [address] [place] Sodium [Moles/Vol] 138 mmol/L Normal 136-144 [facility] Comment on above: Order Comment: Speci men Type: BLOOD SPECIMENOrdering Facility: [facility] Address: [address] [place] [address] Performed By: #### 2 4323-8 ####[facility]ENTER[facility] [id number] [place] [address] [place]#### 67479-7 ####[facility]ATORYCLIA [id number] [address] STATES OF [facility] [id number] [place] [address] [place] Urea nitrogen [Mass/Vol] 14 mg/dL Normal 9-24 [facility] Comment on above: Order Comment: Speci men Type: BLOOD SPECIMENOrdering Facility: [facility] Address: [address] [place] [address] Performed By: #### 2 4323-8 ####[facility] [id number] [place] [address] [place]#### 91062-5 ####[facility]ATORYCLIA [id number] [place] [address] [place] [facility]ABROW[facility] [id number] [place] [address] [place] Lipid 1996 panelon 5 Cholesterol [Mass/Vol] 194 mg/dL Normal <200 [facility] Comment on above: Order Comment: Speci men Type: BLOOD SPECIMENOrdering Facility: [facility] Address: [address] [place] [address] Result Comment: <200 mg/dL, Desirable 200-239 mg/dL, Borderline high >239 mg/dL, High Performed By: #### 2 4323-8 ####[facility] MILLTOWNCLIA [id number] [address] OF [place]#### 27754-4 ####[facility]ATORYCLIA [id number] [address]WNCL[address] [id number] [address] Cholesterol in HDL [Mass/Vol] 49 mg/dL Normal >39 [facility] Comment on above: Order Comment: Speci men Type: BLOOD SPECIMENOrdering Facility: [facility] Address: [address] [place] [address] Result Comment: 40-5 9 mg/dL, Acceptable >59 mg/dL, High: Negative risk factor for coronary heart disease <40 mg/dL, Low: Positive risk factor for coronary heart disease Performed By: #### 2 4323-8 ####[facility]CL[facility] [id number] [address] OF [place]#### 85925-0 ####[facility]ATORYCLIA [id number] [address]CLIA [id number] [address] [place] Cholesterol in LDL [Mass/Vol] 124 mg/dL High <100 [facility] Comment on above: Order Comment: Speci men Type: BLOOD SPECIMENOrdering Facility: [facility] Address: [address] [place] [address] Result Comment: <100 mg/dL, Optimal 100-129 mg/dL, Near optimal/above optimal 130-159 mg/dL, Borderline high 160-189 mg/dL, High >189 mg/dL, Very high Secondary prevention optimal LDL Cholesterol levels are recommended to be < 70 mg/dL Performed By: #### 2 4323-8 ####[facility] MILLTOWNCLIA [id number] [address] [place]#### 98083-2 ####[facility] LABORATORYCLIA [id number] [address]CLIA [id number] [address] [place] Cholesterol in LDL/Cholesterol in HDL [Mass ratio] 2.53 {ratio} Normal <2.54 [facility] Comment on above: Order Comment: Speci men Type: BLOOD SPECIMENOrdering Facility: [facility] Address: [address] [place] [address] Result Comment: Refe sofía: 1. National Cholesterol Education Program ATP III Guideline At-A-Glance Quick Desk Reference: National Heart, Lung, and Blood [place]. National Institutes of Health. 2001: NIH Publication No. 01-3305. 2. An International Atherosclerosis Society position paper: global recommendations for the management of dyslipidemia: executive summary, Atherosclerosis. 2014: 232(2):410-413. Performed By: #### 2 4323-8 ####[facility]CL[facility] [id number] [address] OF [place]#### 41312-0 ####[facility]ORATORYCLIA [id number] [address] [facility]ERT[facility] CITY HOSPITALTOWNCLIA [id number] [place] [address] [place] Cholesterol in VLDL [Mass/Vol] 21 mg/dL Normal <30 [facility] Comment on above: Order Comment: Speci men Type: BLOOD SPECIMENOrdering Facility: [facility] Address: [address] [place] [address] Performed By: #### 2 4323-8 ####[facility] MILLTOWNCLIA [id number] [address] [place]#### 55701-6 ####[facility] LABORATORYCLIA [id number] [address] [id number] [address] [place] Cholesterol non HDL [Mass/Vol] 145 mg/dL High <130 [facility] Comment on above: Order Comment: Speci men Type: BLOOD SPECIMENOrdering Facility: [facility] Address: [address] [place] [address] Result Comment: <130 mg/dL, Optimal 130-159 mg/dL, Near optimal/above optimal 160-189 mg/dL, Borderline high 190-219 mg/dL, High >219 mg/dL, Very high Secondary prevention optimal non HDL Cholesterol levels are recommended to be <100 mg/dL Performed By: #### 2 4323-8 ####[facility] [id number] [address] OF [place]#### 74850-5 ####[facility] LABORATORYCLIA [id number] [address] [id number] [address] STATES [facility] Cholesterol.total/Cho lesterol in HDL [Mass ratio] 3.96 {ratio} Normal <5.10 [facility] Comment on above: Order Comment: Speci men Type: BLOOD SPECIMENOrdering Facility: [facility] Address: [address] [place] [address] Performed By: #### 2 4323-8 ####[facility] [id number] [address] OF [place]#### 26693-5 ####[facility] LABORATORYCLIA [id number] [address] OF [facility] [id number] [place] [address] [place] FASTING TIME 12 hrs Normal [facility] Comment on above: Order Comment: Speci men Type: BLOOD SPECIMENOrdering Facility: [facility] Address: [address] [place] [address] Performed By: #### 2 4323-8 ####[facility] HOSPITALLIA [id number] [place] [address] [place]#### 09882-8 ####[facility]ATORYCLIA [id number] [address] [id number] [place] [address] [place] Triglyceride [Mass/Vol] 106 mg/dL Normal <150 [facility] Comment on above: Order Comment: Speci men Type: BLOOD SPECIMENOrdering Facility: [facility] Address: [address] [place] [address] Result Comment: <150 mg/dL, Normal 150-199 mg/dL, Borderline high 200-499 mg/dL, High >499 mg/dL, Very high Performed By: #### 2 4323-8 ####[facility] [id number] [place] [address] [place]#### 98054-9 ####[facility]ATORYCLIA [id number] [address] [id number] [place] [address] [place] TOXICOLOGY SCREEN, ROUTINE U RINEon 05-23-2024 Amphetamines Confirm (U) [Mass/Vol] Negative Normal Negative [facility] Comment on above: Order Comment: Speci men Type: URINE SPECIMENOrdering Facility: [facility] Address: [address] [place] [address] Result Comment: Cuto ff threshold at 1000 ng/mL. Performed By: #### U TOX2 ####[facility]ORATORYCLIA [id number] [place] [address] [place] BARBITURATES, URINE Negative Normal Negative [facility] Comment on above: Order Comment: Speci men Type: URINE SPECIMENOrdering Facility: [facility] Address: [address] [place] [address] Result Comment: Cuto ff threshold at 200 ng/mL. Performed By: #### U TOX2 ####[facility]ATORYCLIA [id number] [place] [address] [place] BENZODIAZEPINES, UR Positive Abnormal Negative [facility] Comment on above: Order Comment: Speci men Type: URINE SPECIMENOrdering Facility: [facility] Address: [address] [place] [address] Result Comment: Cuto ff threshold at 200 ng/mL. Performed By: #### U TOX2 ####[facility]ATORYCLIA [id number] [place] [address] [place] Cannabinoids Screen Ql (U) Negative Normal Negative [facility] Comment on above: Order Comment: Speci men Type: URINE SPECIMENOrdering Facility: [facility] Address: [address] [place] [address] Result Comment: Cuto ff threshold at 50 ng/mL. Performed By: #### U TOX2 ####[facility] LABORATORYCLIA [id number] [place] [address] [place] Cocaine Ql (U) Negative Normal Negative [facility] Comment on above: Order Comment: Speci men Type: URINE SPECIMENOrdering Facility: [facility] Address: [address] [place] [address] Result Comment: Cuto ff threshold at 300 ng/mL. Performed By: #### U TOX2 ####[facility]ATORYCLIA [id number] [place] [address] [place] Ethanol (U) [Mass/Vol] <11 Normal <11 [facility] Comment on above: Order Comment: Speci men Type: URINE SPECIMENOrdering Facility: [facility] Address: [address] [place] [address] Performed By: #### U TOX2 ####[facility]ATORYCLIA [id number] [address] OF [facility] Opiates Screen Ql (U) Negative Normal Negative [facility] Comment on above: Order Comment: Speci men Type: URINE SPECIMENOrdering Facility: [facility] Address: [address] [place] [address] Result Comment: Cuto ff threshold at 300 ng/mL. Performed By: #### U TOX2 ####[facility]ATORYCLIA [id number] [address] OF [place] oxyCODONE cutoff Screen (U) [Mass/Vol] Negative Normal Negative [facility] Comment on above: Order Comment: Speci men Type: URINE SPECIMENOrdering Facility: [facility] Address: [address] [place] [address] Performed By: #### U TOX2 ####[facility] LABORATORYCLIA [id number] [address] STATES OF [place] Phencyclidine Ql (U) Negative Normal Negative [facility] Comment on above: Order Comment: Speci men Type: URINE SPECIMENOrdering Facility: [facility] Address: [address] [place] [address] Result Comment: Cuto ff threshold at 25 ng/mL. Performed By: #### U TOX2 ####[facility] LABORATORYCLIA [id number] [address] [place] Emergency Department Summary on 05-20-2024 Emergency Department Summary [facility] Medical Records Department [address] [place] [address] Emergency Department Summary 05/20/24 MR#: [id number] Acct: [id number] Name: AMILCAR ODONNELL Rep #: [id number] : 1995 28 From: Jose Mata DO PCP: Dr. Yosef Resendez MD Status:DEP ER Location: ED HPI History of Present Illness Chief Complaint: Headache Informant: patient Onset/Context/Timing Onset: Today Context: Gradual Timing: Continuous Quality -Headache: Positive for Sharp Location: Top and back of his head Worsened by: Bright lights and sounds Relieved by: Closing his eyes Associated Symptoms/Injury Associated Symptoms: Positive for Nausea and Photophobia; Negative for Fever, Vomiting, Sore Throat, Sinus Pressure, Numbness, Tingling, Preceding Aura, Visual Changes, Blurred Vision or Visual Loss Injury - RAMOS: Negative for Direct Trauma Narrative Narrative: Patient presents with a headache that began today when he woke up. Patient states it is mainly over the top and back of his head. Patient describes the pain as sharp. Patient states it is worse with light and sound. Patient states it gets somewhat better when he closes his eye. Patient admits to some nausea but denies any vomiting. Patient denies any fevers but admits to some subjective chills. Patient states pain radiates into his neck. Patient denies any visual changes or scotoma. Patient denies any paresthesias or weakness. [facility] Medical History (Updated 05/20/24 @ 17:[address] Jose Mata, DO) POTS (postural orthostatic tachycardia syndrome) Syncope Near syncope Unspecified asthma, uncomplicated Seizures Migraine with aura GERD (gastroesophageal reflux disease) Osteochondrosis Attention deficit disorder Generalized anxiety disorder Panic attacks Major depressive disorder, recurrent severe without psychotic features Home Medications ???Medication ???Instructions ???Recorded ???Last Taken ???Type buspirone 15 mg tablet 15 mg PO TID 11/14/20 Unknown Hist ory albuterol sulfate 90 mcg/actuation 2 puff inhalation Q6H PRN Unknown History aerosol inhaler (Ventolin HFA) bronchospasm midodrine 5 mg tablet 5 mg PO TID 11/19/21 Unknown Histo ry aripiprazole 5 mg tablet 5 mg PO DAILY 09/24/23 Unknown His tory brexpiprazole 1 mg tablet (Rexulti) 1 mg PO DAILY 09/24/23 Unknown History desvenlafaxine succinate 50 mg 50 mg PO DAILY 09/24/23 Unknown Hi story tablet,extended release 24 hr ergocalciferol (vitamin D2) 1,250 1,250 mcg PO QWEEK 09/24/23 Unkno wn History mcg (50,000 unit) capsule lorazepam 0.5 mg tablet 0.5 mg PO BID PRN PRN anxiety 07/14 Unknown History attack omega-3 acid ethyl esters 1 gram 2 cap PO DAILY 09/24/23 Unknown Hi story capsule omeprazole 40 mg capsule,delayed 40 mg PO DAILY 09/24/23 Unknown Hi story release prednisone 20 mg tablet 40 mg (2 x 20 mg) PO DAILY #8 07/14 Unknown Rx TABLETS Allergy/AdvReac Type Severity Reaction Status Date / Time pseudoephedrine HCl (From Allergy PT UNSURE Verified 09/24/23 01:09 Sudafed) OF REACTION RUNDIC Allergy PT UNSURE Uncoded 11/19/21 10:02 OF REACTION Family History Father Asthma Surgical History History of tonsillectomy and adenoidectomy Social History Smoking Status: Never smoker alcohol intake: never substance use type: does not use caffeine: Yes Type: coffee Number of servings: 1 ROS ROS ED Constitutional Constitutional ED: Reports chills; Denies fever(s) Eyes Eyes: Denies blurry vision or change in vision ENT ENT ED: Denies rhinorrhea or sore throat Cardiovascular Cardiovascular: Denies chest pain or palpitations Respiratory/Chest Respiratory/Chest: Denies cough or dyspnea Gastrointestinal Gastrointestinal: Reports nausea; Denies vomiting Genitourinary Genitourinary ED: Denies dysuria or hematuria Musculoskeletal Musculoskeletal: Reports neck pain; Denies back pain Integumentary Denies abscess or rash Neurologic Neurologic: Reports headache(s); Denies weakness Allergic/Immunologic Allergic/Immunologic ED: Denies mouth swelling or urticaria EXAM Physical Exam Const Vital Signs: 05/20/24 14:23 05/20/24 16:23 Temperature 98.6 F Temperature Source Temporal Pulse Rate 87 Respiratory Rate 18 18 Blood Pressure 141/83 H Blood Pressure Mean 102 Pulse Ox 99 Oxygen Delivery Method Room Air Positive well nourished and well developed General Appearance ED: well developed and NAD HEENT Reports normocephalic and moist mucous membranes atraumatic Neck supple and no JVD Resp normal respiratory effort and nelda (more content not included)... [facility] Office Visit (FAMPWS ) AMILCAR ODONNELL ([id number]) 1995 M Date Time Provider Department 04/11/24 11:40 AM ANIRUDH PAIGE FAMPWS During your visit today, we recorded the following information about you: Temperature Pulse Respiration Blood pressure 98.2 degrees 92/minute 18/minute 131/95 Weight 89.4 kg [facility]h Paige [facility]N.[facility] 04/11/2024 11:49 AM Signed Chief Complaint Patient presents with: Head Congestion: With RAMOS, fatigue, vomiting since HPI Amilcar Odonnell is a 28 year old male who presents here today for Above Complaints. Patient is here for headache, fatigue, vomiting. Present since . He went to express care 2 days ago. Was told that he has a viral illness. Denies any ear pain, cough. Throat is sore in the morning but not at present time. He has a continued headache, extreme fatigue. He estimates 4-5 emesis daily. He has nausea. He has diarrhea but only having occasional episodes. Patient has had periods of chills, feeling warm. Afebrile today. Has been able to eat and drink but cannot keep anything down. Did admit to eating [employer] prior to our encounter today. Past medical history, appointments, medications, allergies reviewed. EXAM: BP 131/95 Pulse 92 Temp 36.8 ?C (98.2 ?F) Resp 18 Wt 89.4 kg (197 lb) SpO2 98% BMI 26.72 kg/m? General Appearance: Well appearing, alert, in no acute distress, well-hydrated, well nourished.. Head: Normocephalic, no masses, lesions, tenderness or abnormalities. Eyes: Anicteric sclera. Pupils are equally round and reactive to light. Extraocular movements are intact. . Ears: External ears normal, canals clear. Nose/Sinuses: Nares normal, septum midline, mucosa normal, no drainage or sinus tenderness. Oropharynx: Lips, mucosa, and tongue normal, teeth and gums normal, oropharynx normal. Neck: Supple, no adenopathy Lungs: Lungs clear to auscultation. No wheezing, rhonchi, rales.. Heart: RRR without murmur, gallop, or rubs. No ectopy. Abdomen: Normal abdominal exam, Positive findings: tenderness mild epigastric. ASSESSMENT/PLAN: 1. Norovirus - ICD9: 008.63, ICD10: A08.11 (primary diagnosis) -Symptoms are consistent with norovirus or a similar gastrointestinal viral illness. Discussed with patient this will need to run its course. I encourage plenty of hydration, brat diet, use Zofran as needed. Avoid antidiarrheals. Wash hands with soap and water. - ONDANSETRON 4 MG DISINTEGRATING TABLET 2. Nausea vomiting and diarrhea - ICD9: 787.91, 787.01, ICD10: R11.2, R19.7 - see #1 - ONDANSETRON 4 MG DISINTEGRATING TABLET Anirudh Paige APRN.ORI This note was partly generated using [employer] voice recognition dictation and may contain some misspelled or inaccurate words missed on review. Allergies As of Date: 04/11/2024 Noted Allergy Reaction RYAN (BROMPHENIRAMINE-PSEUDOEPH*0 04/07/2005 Comments: mom doesn't recall reaction as a baby SYMPATHOMIMETIC AGENTS 03/01/2002 Comments: Sudafed Date Reviewed: 04/11/2024 Reviewed by: Jennifer Zhou LPN - Fully Assessed Reason for Visit: Head Congestion [234] Cmt: With RAMOS, fatigue, vomiting since Primary Visit Diagnosis:Norovirus [A08.11] Other Visit Diagnosis:Nausea vomiting and diarrhea [R11.2, R19.7] Order(s):ondansetron orally disintegrating (ZOFRAN ODT) 4 mg disintegrating tabletTake 1 tablet by mouth every 6 hours as needed for nausea/vomiting.Disp: 30 tabletRfl: 3 Prescriptions as of 04/11/2024 - ondansetron orally disintegrating (ZOFRAN ODT) 4 mg disintegrating tablet Take 1 tablet by mouth every 6 hours as needed for nausea/vomiting. - guaiFENesin-dextromethorphan (ROBITUSSIN DM) 100-10 mg/5 mL syrup Take 5 mL by mouth three times a day as needed for up to 7 days. - fluticasone (FLONASE) 50 mcg/actuation nasal spray Use 2 Sprays in each nostril once daily for 7 days. Rinse mouth after use. - desvenlafaxine ER (PRISTIQ) 50 mg 24 hr tablet Take 1 tablet by mouth once daily. - busPIRone (BUSPAR) 15 mg tablet Take 1 tablet by mouth three times a day. - brexpiprazole (REXULTI) 1 mg tablet Take 1 tablet by mouth once daily. - omeprazole (PRILOSEC) 40 mg capsule Take 1 capsule by mouth once daily. - ALIGN 4 mg cap Take 1 capsule by mouth once daily - midodrine (PROAMITINE) 5 mg tablet Take 1 tablet by mouth three times a day. - bisacodyl EC (DULCOLAX, BISACODYL,) 5 mg EC tablet Refer to bowel prep instructions. - psyllium husk (KONSYL) 6 gram pwpk packet Take 1 Packet by mouth once daily. - omega-3 acid ethyl esters (LOVAZA) 1 gram capsule TAKE 1 CAPSULE BY MOUTH ONCE DAILY IN THE AFTERNOON - albuterol HFA (PROVENTIL HFA, VENTOLIN HFA) 90 mcg/actuation inhaler Inhale 2 Puffs as instructed every 6 hours as needed. - SUMAtriptan (IMITREX) 50 mg tablet Take 1 tablet by mouth as directed. TAKE AT ONSET OF MIGRAINE. MAY REPEAT X 1 IF NEEDED. (more content not included)... Normal [facility] CNOVon 04-09-2024 CNOV Office Visit ([facility] ) AMILCAR ODONNELL ([id number]) 1995 M Date Time Provider Department 04/09/24 1:30 PM MICHELA WEEKS [facility] During your visit today, we recorded the following information about you: Temperature Pulse Respiration Blood pressure 98.1 degrees 94/minute 16/minute 139/94 Weight 88.5 kg Michela Weeks APRN.FRUIT DUMPER 04/09/2024 2:40 PM Signed Subjective Pt is a 28 y/o male who presents with sore throat, nasal congestion and vomiting x 3 days. Pt is taking care of son who has similar symptoms. Pt has no reports of fever. During visit, unable to visualize bilateral TM's due to impacted cerumen. Bilateral ear lavage/irrigation was successfully performed by nursing staff during visit. HPI Review of Systems Constitutional: Positive for malaise/fatigue. HENT: Positive for congestion, ear pain and sore throat. Respiratory: Positive for cough, sputum production and shortness of breath. Gastrointestinal: Positive for nausea and vomiting. Neurological: Positive for headaches. BP 139/94 Pulse 94 Temp 36.7 ?C (98.1 ?F) (Oral) Resp 16 Wt 88.5 kg (195 lb 1.7 oz) SpO2 97% BMI 26.46 kg/m? PAST MEDICAL HISTORY Diagnosis Date Attention deficit disorder with hyperactivity(314.01) 12/28/2007 Depression Esophageal reflux Generalized anxiety disorder GERD (gastroesophageal reflux disease) Migraine with aura POTS (postural orthostatic tachycardia syndrome) Seizures (HCC) Unspecified asthma(493.90) PAST SURGICAL HISTORY Procedure Laterality Date COLONOSCOPY 03/27/2022 COLONOSCOPY SCREENING 06/15/2023 Normal EGD 03/27/2022 EGD 05/25/2023 GERD PAST SURGICAL HISTORY OF TANDA ALLERGIES Rondec [Brompheniramine-Pseudoephed rin] and Sympathomimetic Agents MEDICATIONS desvenlafaxine ER (PRISTIQ) 50 mg 24 hr tablet Take 1 tablet by mouth once daily. busPIRone (BUSPAR) 15 mg tablet Take 1 tablet by mouth three times a day. brexpiprazole (REXULTI) 1 mg tablet Take 1 tablet by mouth once daily. omeprazole (PRILOSEC) 40 mg capsule Take 1 capsule by mouth once daily. ALIGN 4 mg cap Take 1 capsule by mouth once daily midodrine (PROAMITINE) 5 mg tablet Take 1 tablet by mouth three times a day. bisacodyl EC (DULCOLAX, BISACODYL,) 5 mg EC tablet Refer to bowel prep instructions. psyllium husk (KONSYL) 6 gram pwpk packet Take 1 Packet by mouth once daily. ondansetron orally disintegrating (ZOFRAN ODT) 4 mg disintegrating tablet Take 1 tablet by mouth every 6 hours as needed for nausea/vomiting. omega-3 acid ethyl esters (LOVAZA) 1 gram capsule TAKE 1 CAPSULE BY MOUTH ONCE DAILY IN THE AFTERNOON albuterol HFA (PROVENTIL HFA, VENTOLIN HFA) 90 mcg/actuation inhaler Inhale 2 Puffs as instructed every 6 hours as needed. SUMAtriptan (IMITREX) 50 mg tablet Take 1 tablet by mouth as directed. TAKE AT ONSET OF MIGRAINE. MAY REPEAT X 1 IF NEEDED. guaiFENesin-dextromethorphan (ROBITUSSIN DM) 100-10 mg/5 mL syrup Take 5 mL by mouth three times a day as needed for up to 7 days. fluticasone (FLONASE) 50 mcg/actuation nasal spray Use 2 Sprays in each nostril once daily for 7 days. Rinse mouth after use. FAMILY HISTORY Problem Relation Age of Onset Anxiety disorder Mother Depression Mother Asthma Father other (adhd) Father other (encephalitis) Maternal Grandfather other (ms) Maternal Grandfather other (cirrhosis) Maternal Grandfather Heart Other MOMS SIDE other (cholesterol) Other dads side Colon Cancer No Family History Social History Tobacco Use Smoking status: Never Smokeless tobacco: Never Tobacco comments: outside Vaping Use Vaping status: Never Used Substance Use Topics Alcohol use: Not Currently Drug use: Not Currently Types: Marijuana Objective Physical Exam Constitutional: General: He is awake. Appearance: Normal appearance. HENT: Head: Normocephalic. Right Ear: Tympanic membrane and ear canal normal. Left Ear: Tympanic membrane and ear canal normal. Ears: Comments: Impacted cerumen bilaterally, cleared with ear lavage/irrigation. Nose: Nasal tenderness, congestion and rhinorrhea present. Rhinorrhea is clear. Right Turbinates: Enlarged and swollen. Left Turbinates: Enlarged and swollen. Comments: Bilateral erythematous and swollen turbinates Mouth/Throat: Mouth: Mucous membranes are moist. Pharynx: Oropharynx is clear. Eyes: Conjunctiva/sclera: Conjunctivae normal. Cardiovascular: Rate and Rhythm: Normal rate and regular rhythm. Heart sounds: Normal heart sounds. Pulmonary: Effort: Pulmonary effort is normal. Breath sounds: Normal breath sounds. Neurological: Mental Status: He is alert. ASSESSMENT/PLAN: 1. Viral URI with cough - ICD9: 465.9, ICD10: J06.9 (primary diagnosis) - Discussed viral etiology and rationale for treatment. - Symptomatic treatment with prn analgesia - Supportive care wi (more content not included)... Normal [facility] CNOVon 02-29-2024 CNOV Office Visit ([facility] ) AMILCAR ODONNELL ([id number]) 1995 M Date Time Provider Department 02/29/24 1:[address] [facility] During your visit today, we recorded the following information about you: Pulse Blood pressure Weight Height 105/minute 120/75 86.2 kg 1.829 m Ligia Kuhn APRN.FRUIT DUMPER 02/29/2024 9:10 PM Signed This is a 28 year old male who presents today with: Patient presents with: Head Congestion HISTORY OF PRESENT ILLNESS: Amilcar Odonnell is a 28 year old male. Patient presents with: Head Congestion Here in the office for ongoing sinus symptoms. Saw PCP on 02/23/2024, treated with Z-Grecia for sinusitis and bronchitis.Still having on going sinus congestion and productive cough. Yellow sinus drainage and chest mucus. Taking cold and cough medication as needed. Denies any fever or chills. PAST MEDICAL HISTORY: PAST MEDICAL HISTORY Diagnosis Date Attention deficit disorder with hyperactivity(314.01) 12/28/2007 Depression Esophageal reflux Generalized anxiety disorder GERD (gastroesophageal reflux disease) Migraine with aura POTS (postural orthostatic tachycardia syndrome) Seizures (HCC) Unspecified asthma(493.90) PAST SURGICAL HISTORY Procedure Laterality Date COLONOSCOPY 03/27/2022 COLONOSCOPY SCREENING 06/15/2023 Normal EGD 03/27/2022 EGD 05/25/2023 GERD PAST SURGICAL HISTORY OF TANDA ALLERGIES Rondec [Brompheniramine-Pseudoephed rin] and Sympathomimetic Agents MEDICATIONS Current Outpatient Medications Medication Sig benzonatate (TESSALON PERLE) 100 mg capsule Take 2 capsules by mouth three times a day as needed for up to 10 days. desvenlafaxine ER (PRISTIQ) 50 mg 24 hr tablet Take 1 tablet by mouth once daily. busPIRone (BUSPAR) 15 mg tablet Take 1 tablet by mouth three times a day. brexpiprazole (REXULTI) 1 mg tablet Take 1 tablet by mouth once daily. LORazepam (ATIVAN) 0.5 mg Take 1 tablet by mouth two times a day as needed (severe anxiety symptoms) for up to 30 days. omeprazole (PRILOSEC) 40 mg capsule Take 1 capsule by mouth once daily. ALIGN 4 mg cap Take 1 capsule by mouth once daily midodrine (PROAMITINE) 5 mg tablet Take 1 tablet by mouth three times a day. bisacodyl EC (DULCOLAX, BISACODYL,) 5 mg EC tablet Refer to bowel prep instructions. psyllium husk (KONSYL) 6 gram pwpk packet Take 1 Packet by mouth once daily. ondansetron orally disintegrating (ZOFRAN ODT) 4 mg disintegrating tablet Take 1 tablet by mouth every 6 hours as needed for nausea/vomiting. omega-3 acid ethyl esters (LOVAZA) 1 gram capsule TAKE 1 CAPSULE BY MOUTH ONCE DAILY IN THE AFTERNOON albuterol HFA (PROVENTIL HFA, VENTOLIN HFA) 90 mcg/actuation inhaler Inhale 2 Puffs as instructed every 6 hours as needed. SUMAtriptan (IMITREX) 50 mg tablet Take 1 tablet by mouth as directed. TAKE AT ONSET OF MIGRAINE. MAY REPEAT X 1 IF NEEDED. No current facility-administered medications for this visit. FAMILY HISTORY Problem Relation Age of Onset Anxiety disorder Mother Depression Mother Asthma Father other (adhd) Father other (encephalitis) Maternal Grandfather other (ms) Maternal Grandfather other (cirrhosis) Maternal Grandfather Heart Other MOMS SIDE other (cholesterol) Other dads side Colon Cancer No Family History Social History Tobacco Use Smoking status: Never Smokeless tobacco: Never Tobacco comments: outside Vaping Use Vaping status: Never Used Substance Use Topics Alcohol use: Not Currently Drug use: Not Currently Types: Marijuana REVIEW OF SYSTEMS GENERAL: No weight loss, malaise or fevers/chills HEENT: + Sinus Congestion NECK: Negative for lumps, goiter, pain and significant neck swelling RESPIRATORY: + Cough CARDIOVASCULAR: Negative for chest pain, leg swelling, orthopnea, or palpitations GI: No nausea, vomiting, or diarrhea/constipation. No hematochezia/melena. No heartburn or reflux symptoms. : No history of dysuria, frequency or incontinence MUSCULOSKELETAL: Negative for joint pain or swelling. SKIN: Negative for lesions, rash, and itching ENDOCRINE: Negative for cold or heat intolerance, polyuria, polydipsia and goiter NEURO: No history of headaches, syncope, paralysis, seizures or tremors MOOD: Negative for depression, anxiety, or suicidal ideation. EXAM: BP 120/75 Pulse 105 Ht 182.9 cm (6') Wt 86.2 kg (190 lb) BMI 25.77 kg/m? PHYSICAL EXAM: General Appearance: Well appearing, alert, in no acute distress, well-hydrated, well nourished.. Skin: Skin color, texture, turgor normal, no suspicious rashes or lesions. Head: Normocephalic, no masses, lesions, tenderness or abnormalities. Eyes: Anicteric sclera. Extraocular movements are intact. . Ears: External ears normal, canals clear. Cerumen Impaction noted, unable to visualize TM's. Nose/Sinuses: Positive findings: mucosa erythematous and s (more content not included)... Normal [facility] 25(OH)D3 [facility] 2023 25-hydroxyvitamin D3 [Mass/Vol] 23.2 ng/mL Low 31.0-80.0 [facility] Comment on above: Order Comment: Speci men Type: BLOOD SPECIMENOrdering Facility: [facility] Address: [address] [place] [address] Performed By: #### 1 989-3 ####[facility] LABCLIA [id number] [place] [address] [place] Moises 02-26-2024 CNPN Telephone (FAMPWS) AMILCAR ODONNELL ([id number]) 1995 M Date Time Provider Department 02/26/24 YOSEF RESENDEZ During your visit today, we recorded the following information about you: Isadora Michel LPN 02/26/2024 9:05 AM Signed Pt calling for a work excuse. He was seen in the office 02-23-24. Pt is asking for the excuse to be from 02-24-24 thru today 02-26-24 and return to work on Thursday02-29-24. 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 KURTIS Kumar Ashley, APRN.FRUIT DUMPER 02/26/2024 9:52 AM Signed Can you please call the patient back and let him know that his letter is ready for pickup. This will be at the front edger. Thank you. Ligia Kuhn APRN.Trenton Martines LPN 02/26/2024 10:01 AM Signed Patient notified of letter to picket labor union, verbalizes understanding of instructions. Allergies As of Date: 02/26/2024 Noted Allergy Reaction RYAN (BROMPHENIRAMINE-PSEUDOEPH*0 04/07/2005 Comments: mom doesn't recall reaction as a baby SYMPATHOMIMETIC AGENTS 03/01/2002 Comments: Sudafed Date Reviewed: 02/23/2024 Reviewed by: Jocelin Mcleod MA - Fully Assessed Reason for Visit: Letter [264] Prescriptions as of 02/26/2024 - azithromycin (ZITHROMAX Z-GRECIA) 250 mg tablet Take 2 tablets day one, then, 1 tablet daily until gone. - benzonatate (TESSALON PERLE) 100 mg capsule Take 2 capsules by mouth three times a day as needed for up to 10 days. - desvenlafaxine ER (PRISTIQ) 50 mg 24 hr tablet Take 1 tablet by mouth once daily. - busPIRone (BUSPAR) 15 mg tablet Take 1 tablet by mouth three times a day. - brexpiprazole (REXULTI) 1 mg tablet Take 1 tablet by mouth once daily. - LORazepam (ATIVAN) 0.5 mg Take 1 tablet by mouth two times a day as needed (severe anxiety symptoms) for up to 30 days. - omeprazole (PRILOSEC) 40 mg capsule Take 1 capsule by mouth once daily. - ALIGN 4 mg cap Take 1 capsule by mouth once daily - midodrine (PROAMITINE) 5 mg tablet Take 1 tablet by mouth three times a day. - bisacodyl EC (DULCOLAX, BISACODYL,) 5 mg EC tablet Refer to bowel prep instructions. - psyllium husk (KONSYL) 6 gram pwpk packet Take 1 Packet by mouth once daily. - ondansetron orally disintegrating (ZOFRAN ODT) 4 mg disintegrating tablet Take 1 tablet by mouth every 6 hours as needed for nausea/vomiting. - omega-3 acid ethyl esters (LOVAZA) 1 gram capsule TAKE 1 CAPSULE BY MOUTH ONCE DAILY IN THE AFTERNOON - albuterol HFA (PROVENTIL HFA, VENTOLIN HFA) 90 mcg/actuation inhaler Inhale 2 Puffs as instructed every 6 hours as needed. - SUMAtriptan (IMITREX) 50 mg tablet Take 1 tablet by mouth as directed. TAKE AT ONSET OF MIGRAINE. MAY REPEAT X 1 IF NEEDED. Meds Comments as of 11/01/2019: an Problem List As Of Date 02/26/2024 Noted Resolved ESOPHAGEAL REFLUX [K21.9] 01/04/2004 Attention deficit disorder with hyperactivity(3*12/28/2007 11/19/2023 Migraine without aura [G43.009] 03/09/2008 Headache [R51] 04/26/2008 Abnormal involuntary movements(781.0) [R25.8, R*04/26/2008 11/19/2023 JUV OSTEOCHONDROSIS NEC [M92.8] 06/15/2008 TREMOR NEC [G25.0, G25.2] 11/02/2008 Anxiety and depression [F41.9, F32.A] 10/27/2014 Insomnia [G47.00] 07/24/2015 POTS (postural orthostatic tachycardia syndrome*06/24/2019 Hiatal hernia [K44.9] 04/01/2023 Letter Text Encounter Status:Closed by TRENTON HERNANDEZ on 02/26/24 Normal [facility] Comprehensive metabolic 2000 panelon 02-26-2024 Albumin [Mass/Vol] 4.5 g/dL Normal 3.9-4.9 [facility] Comment on above: Order Comment: Speci men Type: BLOOD SPECIMENOrdering Facility: [facility] Address: [address] [place] [address] Performed By: #### 2 4323-8, 86116-5 ####[facility] LABCLIA [id number] [place] [address] [place] ALP [Catalytic activity/Vol] 66 U/L Normal 38-113 [facility] Comment on above: Order Comment: Speci men Type: BLOOD SPECIMENOrdering Facility: [facility] Address: [address] [place] [address] Performed By: #### 2 4323-8, 74161-3 ####[facility] LABCLIA [id number] [place] [address] [place] ALT [Catalytic activity/Vol] 79 U/L High 10-54 [facility] Comment on above: Order Comment: Speci men Type: BLOOD SPECIMENOrdering Facility: [facility] Address: [address] [place] [address] Performed By: #### 2 4323-8, 24207-0 ####[facility] LABCLIA [id number] [place] [address] [place] Anion gap [Moles/Vol] 9 mmol/L Normal 8-15 [facility] Comment on above: Order Comment: Speci men Type: BLOOD SPECIMENOrdering Facility: [facility] Address: [address] [place] [address] Performed By: #### 2 4323-8, 86071-6 ####[facility] LABCLIA [id number] [place] [id number] [place] AST [Catalytic activity/Vol] 39 U/L Normal 14-40 [facility] Comment on above: Order Comment: Speci men Type: BLOOD SPECIMENOrdering Facility: [facility] Address: [address] [place] [address] Performed By: #### 2 4323-8, 41007-9 ####[facility] LABCLIA [id number] [place] [address] [place] Bilirubin [Mass/Vol] 0.9 mg/dL Normal 0.2-1.3 [facility] Comment on above: Order Comment: Speci men Type: BLOOD SPECIMENOrdering Facility: [facility] Address: [address] [place] [address] Performed By: #### 2 4323-8, 73988-0 ####[facility] LABCLIA [id number] [place] [address] [place] Calcium [Mass/Vol] 9.8 mg/dL Normal 8.5-10.2 [facility] Comment on above: Order Comment: Speci men Type: BLOOD SPECIMENOrdering Facility: [facility] Address: [address] [place] [address] Performed By: #### 2 4323-8, 38083-6 ####[facility] LABCLIA [id number] [place] [address] [place] Chloride [Moles/Vol] 102 mmol/L Normal 98-107 [facility] Comment on above: Order Comment: Speci men Type: BLOOD SPECIMENOrdering Facility: [facility] Address: [address] [place] [address] Performed By: #### 2 4323-8, 35641-4 ####[facility] LABCLIA [id number] [place] [address] [place] CO2 [Moles/Vol] 29 mmol/L Normal 22-30 [facility] Comment on above: Order Comment: Speci men Type: BLOOD SPECIMENOrdering Facility: [facility] Address: [address] [place] [address] Performed By: #### 2 4323-8, 94802-8 ####[facility] LABIA [id number] [place] [id number] [place] Creatinine [Mass/Vol] 1.10 mg/dL Normal 0.73-1.22 [facility] Comment on above: Order Comment: Seymour men Type: BLOOD SPECIMENOrdering Facility: [facility] Address: [address] [place] [address] Performed By: #### 2 4323-8, 77485-1 ####[facility] [id number] [place] [address] [place] Creatinine and Glomerular filtration rate.predicted panel (S/P/Bld) 93 mL/min/1.73m??? Normal >=60 [facility] Comment on above: Order Comment: Seymour ventura Type: BLOOD SPECIMENOrdering Facility: [facility] Address: [address] [place] [address] Result Comment: Sera mated Glomerular Filtration Rate (eGFR) is calculated using the 2020 CKD-EPI creatinine equation. This equation utilizes serum creatinine, sex, and age as parameters. The creatinine assay has traceable calibration to isotope dilution-mass spectrometry. Refer to KDIGO guidelines for clinical interpretation. In patients with unstable renal function, e.g. those with acute kidney injury, the eGFR may not accurately reflect actual GFR. Performed By: #### 2 4323-8, 15302-5 ####[facility] [id number] [place] [id number] [place] Glucose [Mass/Vol] 101 mg/dL High 74-99 [facility] Comment on above: Order Comment: Seymour ventura Type: BLOOD SPECIMENOrdering Facility: [facility] Address: [address] [place] [address] Result Comment: The [place] [employer] (ADA) provides guidance for cutoff values for fasting glucose and random glucose. The ADA defines fasting as no caloric intake for at least 8 hours. Fasting plasma glucose results between 100 to 125 mg/dL indicate increased risk for diabetes (prediabetes). Fasting plasma glucose results greater than or equal to 126 mg/dL meet the criteria for diagnosis of diabetes. In the absence of unequivocal hyperglycemia, results should be confirmed by repeat testing. In a patient with classic symptoms of hyperglycemia or hyperglycemic crisis, random plasma glucose results greater than or equal to 200 mg/dL meet the criteria for diagnosis of diabetes. Reference: Standards of Medical Care in Diabetes 2016, [place] [employer]. Diabetes Care. 2016.39(Suppl 1). Performed By: #### 2 4323-8, 75467-9 ####[facility] LABCLIA [id number] [address] [address] [place] Potassium [Moles/Vol] 4.2 mmol/L Normal 3.7-5.1 [facility] Comment on above: Order Comment: Speci men Type: BLOOD SPECIMENOrdering Facility: [facility] Address: [address] [place] [address] Performed By: #### 2 4328, ####[facility] LABIA [id number] [address] [address] [place] Protein [Mass/Vol] 7.7 g/dL Normal 6.3-8.0 [facility] Comment on above: Order Comment: Speci men Type: BLOOD SPECIMENOrdering Facility: [facility] Address: [address] [place], [place] [address] Performed By: #### 2 4328, ####[facility] LABCLIA [id number] [address] [address] [place] Sodium [Moles/Vol] 140 mmol/L Normal 136-144 [facility] Comment on above: Order Comment: Speci men Type: BLOOD SPECIMENOrdering Facility: [facility] Address: [address] [place] [address] Performed By: #### 2 4323-8, ####[facility] LABIA [id number] [address] [address] [place] Urea nitrogen [Mass/Vol] 15 mg/dL Normal 9-24 [facility] Comment on above: Order Comment: Seymour ventura Type: BLOOD SPECIMENOrdering Facility: [facility] Address: [address] [place] [address] Performed By: #### 2 4323-8, 79225-5 ####[facility] LABCLIA [id number] [place] [address] [place] HbA1c (Bld)on 02-26-2024 Average glucose Estimated from glycated hemoglobin (Bld) [Mass/Vol] 103 mg/dL Normal [facility] Comment on above: Order Comment: Seymour ventura Type: BLOOD SPECIMENOrdering Facility: [facility] Address: [address] [place] [address] Result Comment: eAG: (Estimated average glucose) is a calculated value from HgbA1c and is publications sales representative of the average blood glucose level in the last 2-3 month period. Performed By: #### 5 5454-3 ####[facility] LABCLIA [id number] [place] [address] [place] HbA1c (Bld) [Mass fraction] 5.2 % Normal 4.3-5.6 [facility] Comment on above: Order Comment: Seymour ventura Type: BLOOD SPECIMENOrdering Facility: [facility] Address: [address] [place] [address] Result Comment: Amer [place] Diabetes Association guidelines indicate that patients with HgbA1c in the range 5.7-6.4% are at increased risk for development of diabetes, and intervention by lifestyle modification may be beneficial. HgbA1c greater or equal to 6.5% is considered diagnostic of diabetes. Performed By: #### 5 5454-3 ####[facility] LABCLIA [id number] [place] [id number] [place] Lipid 1996 panelon 4 Cholesterol [Mass/Vol] 181 mg/dL Normal <200 [facility] Comment on above: Order Comment: Seymour men Type: BLOOD SPECIMENOrdering Facility: [facility] Address: [address] [place] [address] Result Comment: <200 mg/dL, Desirable 200-239 mg/dL, Borderline high >239 mg/dL, High Performed By: #### 2 4323-8, 56914-8 ####[facility] LABCLIA [id number] [place] [address] [place] Cholesterol in HDL [Mass/Vol] 38 mg/dL Low >39 [facility] Comment on above: Order Comment: Speci men Type: BLOOD SPECIMENOrdering Facility: [facility] Address: [address] [place] [address] Result Comment: 40-5 9 mg/dL, Acceptable >59 mg/dL, High: Negative risk factor for coronary heart disease <40 mg/dL, Low: Positive risk factor for coronary heart disease Performed By: #### 2 4323-8, 68778-7 ####[facility] LABCLIA [id number] [place] [address] [place] Cholesterol in LDL [Mass/Vol] 105 mg/dL High <100 [facility] Comment on above: Order Comment: Speci men Type: BLOOD SPECIMENOrdering Facility: [facility] Address: [address] [place] [address] Result Comment: <100 mg/dL, Optimal 100-129 mg/dL, Near optimal/above optimal 130-159 mg/dL, Borderline high 160-189 mg/dL, High >189 mg/dL, Very high Secondary prevention optimal LDL Cholesterol levels are recommended to be < 70 mg/dL Performed By: #### 2 4323-8, 89673-8 ####[facility] LABCLIA [id number] [place] [address] [place] Cholesterol in LDL/Cholesterol in HDL [Mass ratio] 2.76 {ratio} High <2.54 [facility] Comment on above: Order Comment: Speci men Type: BLOOD SPECIMENOrdering Facility: [facility] Address: [address] [place] [address] Result Comment: Refe rence: 1. National Cholesterol Education Program ATP III Guideline At-A-Glance Quick Desk Reference: National Heart, Lung, and Blood [place]. National Institutes of Health. 2001: NIH Publication No. 01-3305. 2. An International Atherosclerosis Society position paper: global recommendations for the management of dyslipidemia: executive summary, Atherosclerosis. 2014: 232(2):410-413. Performed By: #### 2 4323-8, 74101-3 ####[facility] LABCLIA [id number] [place] [address] [place] Cholesterol in VLDL [Mass/Vol] 38 mg/dL High <30 [facility] Comment on above: Order Comment: Speci men Type: BLOOD SPECIMENOrdering Facility: [facility] Address: [address] [place] [address] Performed By: #### 2 4323-8, 01501-2 ####[facility] LABCLIA [id number] [place] [address] [place] Cholesterol non HDL [Mass/Vol] 143 mg/dL High <130 [facility] Comment on above: Order Comment: Speci men Type: BLOOD SPECIMENOrdering Facility: [facility] Address: [address] [place] [address] Result Comment: <130 mg/dL, Optimal 130-159 mg/dL, Near optimal/above optimal 160-189 mg/dL, Borderline high 190-219 mg/dL, High >219 mg/dL, Very high Secondary prevention optimal non HDL Cholesterol levels are recommended to be <100 mg/dL Performed By: #### 2 4323-8, 53474-9 ####[facility] LABIA [id number] [place] [address] [place] Cholesterol.total/Cho lesterol in HDL [Mass ratio] 4.76 {ratio} Normal <5.10 [facility] Comment on above: Order Comment: Speci men Type: BLOOD SPECIMENOrdering Facility: [facility] Address: [address] [place] [address] Performed By: #### 2 4323-8, 83034-3 ####[facility] LABCLIA [id number] [place] [address] [place] FASTING TIME 12 hrs Normal [facility] Comment on above: Order Comment: Speci men Type: BLOOD SPECIMENOrdering Facility: [facility] Address: [address] [place] [address] Performed By: #### 2 4323-8, 50300-9 ####[facility] LABCLIA [id number] [place] [address] [place] Triglyceride [Mass/Vol] 191 mg/dL High <150 [facility] Comment on above: Order Comment: Speci men Type: BLOOD SPECIMENOrdering Facility: [facility] Address: [address] [place] [address] Result Comment: <150 mg/dL, Normal 150-199 mg/dL, Borderline high 200-499 mg/dL, High >499 mg/dL, Very high Performed By: #### 2 4323-8, 41929-6 ####[facility] LABCLIA [id number] [place] [address] [place] PHOSPHATIDYLETHANOL (PETH)on 02-26-2024 EER PETH See Note Normal [facility] Comment on above: Order Comment: Speci men Type: BLOOD SPECIMENOrdering Facility: [facility] Address: [address] [place] [address] Result Comment: Auth orized individuals can access the [facility] Enhanced Report using the following link: [email or web address] Performed By: #### P ETH ####[facility] [id number] [place] [address] PETH 16:0/18.2 (PLPETH) <10 Normal [facility] Comment on above: Order Comment: Speci men Type: BLOOD SPECIMENOrdering Facility: [facility] Address: [address] [place] [address] Result Comment: Refe rence ranges are not well established. Performed By: #### P ETH ####[facility] [id number] [place] [address] PETH 16:0/18:1 (POPETH) <10 Normal [facility] Comment on above: Order Comment: Speci men Type: BLOOD SPECIMENOrdering Facility: [facility] Address: [address] [place] [address] Result Comment: PEth 16:0/18:1 (POPEth) Less than 10 ng/mL............Not detected Less than 20 ng/mL............Abstinence or light alcohol consumption 20 - 200 ng/mL................Moderate alcohol consumption Greater than 200 ng/mL........Heavy alcohol consumption or chronic alcohol use (Reference: Alin Garcia and Omar Hodges 2018 J. Forensic Sci) Performed By: #### P ETH ####[facility] [id number] [place] [address] PETH INTERPRETATION See Comment Normal [facility] Comment on above: Order Comment: Speci men Type: BLOOD SPECIMENOrdering Facility: [facility] Address: [address] [place] [address] Result Comment: Phos phatidylethanol (PEth) is a group of phospholipids formed in the presence of ethanol, phospholipase D and phosphatidylcholine. PEth is known to be a direct alcohol biomarker. The predominant PEth homologues are PEth 16:0/18:1 (POPEth) and PEth 16:0/18:2 (PLPEth), which account for 37-46% and 26-28% of the total PEth homologues, respectively. PEth is incorporated into the phospholipid membrane of red blood cells and has a general half-life of 4-10 days and a window of detection of 2-4 weeks. However, the window of detection is longer in individuals who chronically or excessively consume alcohol. The limit of quantification is 10 ng/mL. Serial monitoring of PEth may be helpful in monitoring alcohol abstinence over time. PEth results should be interpreted in the context of the patient's clinical and behavioral history. Patients with advanced liver disease may have falsely elevated PEth concentrations (Rehana DUNN et al 2018, Alcoholism Clinical & Experimental Research). This test was developed and its performance characteristics determined by [employer] It has not been cleared or approved by the U.S. Food and Drug Administration. This test was performed in a CLIA-certified laboratory and is intended for clinical purposes. Performed By: [employer] [address] [place] [address] Toll Ticket Clerk: Michael Cunha MD, PhD CLIA Number: [id number] Performed By: #### P ETH ####[facility] [id number] [place] [address] CNOVon 02-23-2024 CNOV Office Visit (FAMPWS ) AMILCAR ODONNELL ([id number]) 1995 M Date Time Provider Department 02/23/24 3:20 PM YOSEF RESENDEZ FAMPWS During your visit today, we recorded the following information about you: Temperature Pulse Respiration Blood pressure 97.9 degrees 88/minute 16/minute 120/74 Weight 86.6 kg Yosef Resendez MD 02/23/2024 5:35 PM Signed Chief Complaint Patient presents with: Follow Up: UC for viral URI and cough HPI Amilcar Odonnell is a 28 year old male who presents here today for UC follow up. Declined flu and covid vaccines. Pt was UC on 02/21/24 for viral URI with cough. His sx included at that time sore throat, cough, nasal congestion and drainage that started 2 days prior. No chest pains, chills, ear pain, RAMOS, myalgia, no fever,SOB or wheezing. He did have have some vomiting due to the post nasal drainage. Did not try to take any OTC medications to tx symptoms. Pt was given Tessallon perles for the cough and advised to continue with symptomatic treatment. Pt states he is not feeling better, thinks his sx are worse. He still has sore throat, congestion, coughing, green yellow drainage, some SOB and wheezing. Has been using OTC Vicks Severe Cold. Tessalon perles are not helping. Did not test for COVID, no one else in home ill. Whole family had Covid 2 months ago. Pt given work note excusing him today. Advised if unable to work tomorrow to call office and we can give him another letter. Past medical history, appointments, medications, allergies reviewed. Previous Medical History PAST MEDICAL HISTORY Diagnosis Date Attention deficit disorder with hyperactivity(314.01) 12/28/2007 Depression Esophageal reflux Generalized anxiety disorder GERD (gastroesophageal reflux disease) Migraine with aura POTS (postural orthostatic tachycardia syndrome) Seizures (HCC) Unspecified asthma(493.90) Previous Surgical History PAST SURGICAL HISTORY Procedure Laterality Date COLONOSCOPY 03/27/2022 COLONOSCOPY SCREENING 06/15/2023 Normal EGD 03/27/2022 EGD 05/25/2023 GERD PAST SURGICAL HISTORY OF TANDA Family History FAMILY HISTORY Problem Relation Age of Onset Anxiety disorder Mother Depression Mother Asthma Father other (adhd) Father other (encephalitis) Maternal Grandfather other (ms) Maternal Grandfather other (cirrhosis) Maternal Grandfather Heart Other MOMS SIDE other (cholesterol) Other dads side Colon Cancer No Family History Patient Allergies ALLERGIES Allergen Reactions Rondec [Bromphenira* mom doesn't recall reaction as a baby Sympathomimetic Age* Sudafed Current Medications Current Outpatient Medications on File Prior to Visit Medication Sig benzonatate (TESSALON PERLE) 100 mg capsule Take 2 capsules by mouth three times a day as needed for up to 10 days. desvenlafaxine ER (PRISTIQ) 50 mg 24 hr tablet Take 1 tablet by mouth once daily. busPIRone (BUSPAR) 15 mg tablet Take 1 tablet by mouth three times a day. brexpiprazole (REXULTI) 1 mg tablet Take 1 tablet by mouth once daily. LORazepam (ATIVAN) 0.5 mg Take 1 tablet by mouth two times a day as needed (severe anxiety symptoms) for up to 30 days. omeprazole (PRILOSEC) 40 mg capsule Take 1 capsule by mouth once daily. ALIGN 4 mg cap Take 1 capsule by mouth once daily midodrine (PROAMITINE) 5 mg tablet Take 1 tablet by mouth three times a day. bisacodyl EC (DULCOLAX, BISACODYL,) 5 mg EC tablet Refer to bowel prep instructions. psyllium husk (KONSYL) 6 gram pwpk packet Take 1 Packet by mouth once daily. ondansetron orally disintegrating (ZOFRAN ODT) 4 mg disintegrating tablet Take 1 tablet by mouth every 6 hours as needed for nausea/vomiting. omega-3 acid ethyl esters (LOVAZA) 1 gram capsule TAKE 1 CAPSULE BY MOUTH ONCE DAILY IN THE AFTERNOON albuterol HFA (PROVENTIL HFA, VENTOLIN HFA) 90 mcg/actuation inhaler Inhale 2 Puffs as instructed every 6 hours as needed. SUMAtriptan (IMITREX) 50 mg tablet Take 1 tablet by mouth as directed. TAKE AT ONSET OF MIGRAINE. MAY REPEAT X 1 IF NEEDED. No current facility-administered medications on file prior to visit. Social History Social History Tobacco Use Smoking status: Never Smokeless tobacco: Never Tobacco comments: outside Vaping Use Vaping status: Never Used Substance Use Topics Alcohol use: Not Currently Drug use: Not Currently Types: Marijuana EXAM: BP 120/74 Pulse 88 Temp 36.6 ?C (97.9 ?F) (Tympanic) Resp 16 Wt 86.6 kg (190 lb 14.7 oz) BMI 25.89 kg/m? General Appearance: mildly ill, congested, coughing. Ears: External ears normal, canals clear. Neck: Supple, no adenopathy; thyroid symmetric, normal size, no bruits. Lungs: Lungs clear to auscultation. No wheezing, rhonchi, rales.. Heart: RRR without murmur, gallop, or rubs. No ectopy. Health Maintenance List Hepatitis C Screening (more content not included)... Normal [facility] CNOVon 02-21-2024 CNOV Office Visit (UCWSTR ) AMILCAR ODONNELL ([id number]) 1995 M Date Time Provider Department 02/21/24 11:45 AM [facility] During your visit today, we recorded the following information about you: Temperature Pulse Respiration Blood pressure 97.9 degrees 103/minute 16/minute 120/72 Weight 85.9 kg Michela Weeks APRN.FRUIT DUMPER 02/21/2024 12:08 PM Signed Subjective Cough Associated symptoms include sore throat. Pertinent negatives include no chest pain, no chills, no ear pain, no headaches, no myalgias, no shortness of breath and no wheezing. Amilcar Odonnell is a 28 year old male who presents with cough, nasal congestion and drainage, sore throat, for the past 2 days. He has not had a fever. He denies shortness of breath. He has had a lot of post nasal drainage which made him vomit a few times. He has not taken any medication at home for symptoms. Review of Systems Constitutional: Negative for chills, fever and malaise/fatigue. HENT: Positive for congestion and sore throat. Negative for ear pain. Respiratory: Positive for cough and sputum production. Negative for shortness of breath and wheezing. Cardiovascular: Negative for chest pain. Gastrointestinal: Positive for vomiting (due to PND). Negative for diarrhea and nausea. Musculoskeletal: Negative for myalgias. Neurological: Negative for headaches. BP 120/72 Pulse 103 Temp 36.6 ?C (97.9 ?F) (Left Tympanic) Resp 16 Wt 85.9 kg (189 lb 6 oz) SpO2 97% BMI 25.68 kg/m? PAST MEDICAL HISTORY Diagnosis Date Attention deficit disorder with hyperactivity(314.01) 12/28/2007 Depression Esophageal reflux Generalized anxiety disorder GERD (gastroesophageal reflux disease) Migraine with aura POTS (postural orthostatic tachycardia syndrome) Seizures (HCC) Unspecified asthma(493.90) PAST SURGICAL HISTORY Procedure Laterality Date COLONOSCOPY 03/27/2022 COLONOSCOPY SCREENING 06/15/2023 Normal EGD 03/27/2022 EGD 05/25/2023 GERD PAST SURGICAL HISTORY OF TANDA ALLERGIES Rondec [Brompheniramine-Pseudoephed rin] and Sympathomimetic Agents MEDICATIONS desvenlafaxine ER (PRISTIQ) 50 mg 24 hr tablet Take 1 tablet by mouth once daily. busPIRone (BUSPAR) 15 mg tablet Take 1 tablet by mouth three times a day. brexpiprazole (REXULTI) 1 mg tablet Take 1 tablet by mouth once daily. LORazepam (ATIVAN) 0.5 mg Take 1 tablet by mouth two times a day as needed (severe anxiety symptoms) for up to 30 days. omeprazole (PRILOSEC) 40 mg capsule Take 1 capsule by mouth once daily. ALIGN 4 mg cap Take 1 capsule by mouth once daily midodrine (PROAMITINE) 5 mg tablet Take 1 tablet by mouth three times a day. bisacodyl EC (DULCOLAX, BISACODYL,) 5 mg EC tablet Refer to bowel prep instructions. psyllium husk (KONSYL) 6 gram pwpk packet Take 1 Packet by mouth once daily. ondansetron orally disintegrating (ZOFRAN ODT) 4 mg disintegrating tablet Take 1 tablet by mouth every 6 hours as needed for nausea/vomiting. omega-3 acid ethyl esters (LOVAZA) 1 gram capsule TAKE 1 CAPSULE BY MOUTH ONCE DAILY IN THE AFTERNOON albuterol HFA (PROVENTIL HFA, VENTOLIN HFA) 90 mcg/actuation inhaler Inhale 2 Puffs as instructed every 6 hours as needed. SUMAtriptan (IMITREX) 50 mg tablet Take 1 tablet by mouth as directed. TAKE AT ONSET OF MIGRAINE. MAY REPEAT X 1 IF NEEDED. benzonatate (TESSALON PERLE) 100 mg capsule Take 2 capsules by mouth three times a day as needed for up to 10 days. FAMILY HISTORY Problem Relation Age of Onset Anxiety disorder Mother Depression Mother Asthma Father other (adhd) Father other (encephalitis) Maternal Grandfather other (ms) Maternal Grandfather other (cirrhosis) Maternal Grandfather Heart Other MOMS SIDE other (cholesterol) Other dads side Colon Cancer No Family History Social History Tobacco Use Smoking status: Never Smokeless tobacco: Never Tobacco comments: outside Vaping Use Vaping status: Never Used Substance Use Topics Alcohol use: Not Currently Drug use: Not Currently Types: Marijuana Objective Physical Exam Vitals and nursing note reviewed. Constitutional: General: He is not in acute distress. Appearance: Normal appearance. HENT: Right Ear: Tympanic membrane, ear canal and external ear normal. Left Ear: Tympanic membrane, ear canal and external ear normal. Nose: Congestion and rhinorrhea present. Mouth/Throat: Mouth: Mucous membranes are moist. Pharynx: Oropharynx is clear. Uvula midline. No oropharyngeal exudate or posterior oropharyngeal erythema. Cardiovascular: Rate and Rhythm: Normal rate and regular rhythm. Heart sounds: Normal heart sounds. Pulmonary: Effort: Pulmonary effort is normal. No respiratory distress. Breath sounds: Normal breath sounds. No wheezing or rales. Musculoskeletal: Cervical back: Neck supple. Lymphadenopathy: (more content not included)... Normal [facility] CNOVon 11-23-2023 CNOV Office Visit (WSTR ) AMILCAR ODONNELL ([id number]) 1995 M Date Time Provider Department 11/23/23 11:30 AM PADMINI AMBRIZ [facility] During your visit today, we recorded the following information about you: Temperature Pulse Respiration Blood pressure 97.4 degrees 96/minute 16/minute 126/68 Weight 81.8 kg Padmini Ambriz PA-C 11/23/2023 11:47 AM Signed How to Manage Common Symptoms Associated with [...] Stay well hydrated. Gargle with salt water - mix ? teaspoon salt with 1 cup of warm [...] that are severe or concerning to you. Padmini Ambriz PA-C 11/23/2023 11:56 AM Signed Subjective Amilcar Odonnell is a 28 year old male with a past medical history of migraine and POTS syndrome who [facility] for evaluation of cough, nasal congestion, nausea, and vomiting x 1 week. Patient states that his was seen here yesterday and tested positive for COVID-19. He states that he was advised to come in to be tested as well. Review of Systems Constitutional: Negative for chills, diaphoresis and fever. HENT: Positive for congestion. Negative for ear pain and sore throat. Eyes: Negative for discharge and redness. Respiratory: Positive for cough. Negative for shortness of breath. Gastrointestinal: Positive for nausea and vomiting. Skin: Negative for rash. Neurological: Negative for weakness and headaches. All other systems reviewed and are negative. Objective BP 126/68 Pulse 96 Temp 36.3 ?C (97.4 ?F) (more content not included)... Normal [facility] COVID AND INFLUENZA A/B AND RSV PCR, ROUTINEon 11-23-2023 SARS-CoV-2 (COVID-19) RNA KIRIT+probe Ql (Unsp spec) SARS-COV-2 (AGENT OF COVID-19) RNA: Not detected INFLUENZA A RNA: Not detected INFLUENZA B RNA: Not detected RESPIRATORY SYNCYTIAL VIRUS (RSV) RNA: Not detected Normal [facility] Comment on above: Performed By: #### C VFLRS ####[facility] LABCLIA [id number] [place] [address] [place] Moises 11-06-2023 CNPN Telephone (PSWSTR) AMILCAR ODONNELL ([id number]) 1995 M Date Time Provider Department 11/06/23 ISHA BECKETT PSWSTR During your visit today, we recorded the following information about you: Marcelo Massiel Marzena 11/06/2023 10:47 AM Signed Patient was calling with medication issue as he must of picked up medication on 10/27 from pharmacy and missed placed it , so he was advised to return to the pharmacy and explain this and will have to pay out of pocket. He is also requesting a refill on his Ativan. Isha Beckett, BOILER ERECTOR.FRUIT DUMPER 11/06/2023 2:15 PM Signed Please notify patient that both medications have been sent to the pharmacy. Pristiq may be expensive if he has to pay out of pocket. Ask him to use good rx coupon to bring down the cost. He could also try calling the insurance company and see if they will make an exception this one time since he lost the medication. Constance De MA 11/06/2023 2:20 PM Signed Tried calling patient earlier pss called office and I advised patient to tell pharmacy what happened which will put claim directly into insurance to see if they can re-bill if not aware to do good rx card Constance De MA Allergies As of Date: 11/06/2023 Noted Allergy Reaction RONDEC (BROMPHENIRAMINE-PSEUDOEPH*0 04/07/2005 Comments: mom doesn't recall reaction as a baby SYMPATHOMIMETIC AGENTS 03/01/2002 Comments: Sudafed Date Reviewed: 06/26/2023 Reviewed by: Ruthie Jordan LPN - Fully Assessed Reason for Visit: Patient Update [1234] Visit Diagnosis:CHARLES (generalized anxiety disorder) [F41.1] Order(s):LORazepam (ATIVAN) 0.5 mgTake 1 tablet by mouth two times a day as needed (severe anxiety symptoms) for up to 30 days.Disp: 15 tabletRfl: 0 desvenlafaxine ER (PRISTIQ) 50 mg 24 hr tabletTake 1 tablet by mouth once daily.Disp: 90 tabletRfl: 1 Prescriptions as of 11/06/2023 - LORazepam (ATIVAN) 0.5 mg Take 1 tablet by mouth two times a day as needed (severe anxiety symptoms) for up to 30 days. - desvenlafaxine ER (PRISTIQ) 50 mg 24 hr tablet Take 1 tablet by mouth once daily. - omeprazole (PRILOSEC) 40 mg capsule Take 1 capsule by mouth once daily. - ALIGN 4 mg cap Take 1 capsule by mouth once daily - midodrine (PROAMITINE) 5 mg tablet Take 1 tablet by mouth three times a day. - busPIRone (BUSPAR) 15 mg tablet Take 1 tablet by mouth three times a day. - polyethylene glycol 3350 (MIRALAX) 17 gram/dose powder Refer to bowel prep instructions. - bisacodyl EC (DULCOLAX, BISACODYL,) 5 mg EC tablet Refer to bowel prep instructions. - psyllium husk (KONSYL) 6 gram pwpk packet Take 1 Packet by mouth once daily. - ergocalciferol 50,000 unit capsule (VITAMIN D2, DRISDOL) Take 1 capsule by mouth one time a week. - sucralfate (CARAFATE) 1 gram tablet Take 1 tablet by mouth before meals and at bedtime. - ondansetron orally disintegrating (ZOFRAN ODT) 4 mg disintegrating tablet Take 1 tablet by mouth every 6 hours as needed for nausea/vomiting. - omega-3 acid ethyl esters (LOVAZA) 1 gram capsule TAKE 1 CAPSULE BY MOUTH ONCE DAILY IN THE AFTERNOON - albuterol HFA (PROVENTIL HFA, VENTOLIN HFA) 90 mcg/actuation inhaler Inhale 2 Puffs as instructed every 6 hours as needed. - SUMAtriptan (IMITREX) 50 mg tablet Take 1 tablet by mouth as directed. TAKE AT ONSET OF MIGRAINE. MAY REPEAT X 1 IF NEEDED. - fluticasone (FLONASE) 50 mcg/actuation nasal spray Use 2 Sprays in each nostril once daily. Rinse mouth after use. Facility-Administered Medications as of 11/06/2023 - lidocaine (PF) 10 mg/mL (1 %) 1-2 mg injection (XYLOCAINE) - lidocaine (PF) 10 mg/mL (1 %) 1-2 mg injection (XYLOCAINE) - lidocaine (PF) 10 mg/mL (1 %) 1-2 mg injection (XYLOCAINE) - lactated ringers iv infusion Meds Comments as of 11/01/2019: an Problem List As Of Date 11/06/2023 Noted Resolved ESOPHAGEAL REFLUX [K21.9] 01/04/2004 ATTN DEFICIT W HYPERACT [F90.9] 12/28/2007 Migraine without aura [G43.009] 03/09/2008 Headache [R51] 04/26/2008 ABN INVOLUN MOVEMENT NEC [R25.8, R25.9] 04/26/2008 JUV OSTEOCHONDROSIS NEC [M92.8] 06/15/2008 TREMOR NEC [G25.0, G25.2] 11/02/2008 Anxiety and depression [F41.9, F32.A] 10/27/2014 Insomnia [G47.00] 07/24/2015 POTS (postural orthostatic tachycardia syndrome*06/24/2019 Hiatal hernia [K44.9] 04/01/2023 Prescriptions ordered this encounter Disp Refills Start End LORAZEPAM 0.5 MG TABLET 15 t* 0 11/06/2023 12/06/2023 Route: ORAL Sig: Take 1 tablet by mouth two times a day as needed (severe anxiety symptoms) for up to 30 days. DESVENLAFAXINE SUCCINATE ER 50 MG TA* 90 t* 1 11/06/2023 05/04/2024 Route: ORAL Sig: Take 1 tablet by mouth once daily. Medications Discontinued During This Encounter Prescriptions - desvenlafaxine ER (PRISTIQ) 50 mg 24 hr tablet (Discontinued) Take 1 tablet by mouth once daily. - LORazepam (ATIVAN) 0.5 mg (Discontinued) Take (more content not included)... Normal [facility] 12 Lead EKGon 2023 12 Lead EKG [facility] Cardiovascular Services [address] [place] [address] 12 Lead EKG 09/24/23 0122 MR#: [id number] Acct: [id number] Name: AMILCAR ODONNELL Rep #: [id number] : 1995 27 From: Vj Ferreira MD Attending Dr: Status: DEP ER Ordering Dr: Rigoberto Fournier MD Date: 09/24/23 Location: ED Sex: M C Admitted: Test Reason : CHEST OTHER Blood Pressure : / mmHG Vent. Rate : 082 BPM Atrial Rate : 082 BPM P-R Int : 140 ms QRS Dur : 086 ms QT Int : 376 ms P-R-T Axes : 033 078 058 degrees QTc Int : 439 ms Normal sinus rhythm with sinus arrhythmia Normal ECG Confirmed by KERI DOHERTY, VJ ([id number]), non linear editor ANNABELLA REYEZ ([id number]) on 09/25/2023 9:34:38 AM Referred By: Confirmed By:VJ FERREIRA MD 09/25/2334 Date Vj Ferreira MD CC: Dr. Rigoberto Fournier MD; Dr. Yosef Resendez MD Signed Normal [facility] Basic Metabolic Profile (BMP )on 2023 BUN/CRE 14.0 RATIO Normal 10-20 [facility] Comment on above: Order Comment: 'TROP ' Serial specimen #1, #2 or #3: 1 Performed By: #### L 500.2500, L100.0100, L501.4020 #### [facility] [address] [place], [address] CA,Total 9.7 mg/dL Normal 8.5-10.1 [facility] Comment on above: Order Comment: 'TROP ' Serial specimen #1, #2 or #3: 1 Performed By: #### L 500.2500, L100.0100, L501.4020 #### [facility] [address] [place], [address] Chloride [Moles/Vol] 105 mmol/L Normal 98-107 [facility] Comment on above: Order Comment: 'TROP ' Serial specimen #1, #2 or #3: 1 Performed By: #### L 500.2500, L100.0100, L501.4020 #### [facility] [address] [place], [address] CO2 [Moles/Vol] 27.0 mmol/L Normal 21.0-32.0 [facility] Comment on above: Order Comment: 'TROP ' Serial specimen #1, #2 or #3: 1 Performed By: #### L 500.2500, L100.0100, L501.4020 #### [facility] [address] [place], [address] Creatinine [Mass/Vol] 1.29 mg/dL Normal 0.70-1.30 [facility] Comment on above: Order Comment: 'TROP ' Serial specimen #1, #2 or #3: 1 Result Comment: The validity of the calculated GFR GFRAA in patients over 70 years has not been determined. Clinical correlation is essential. Performed By: #### L 500.2500, L100.0100, L501.4020 #### [facility] [address] [place], [address] ECRCL 93.57 ml/min Normal [facility] Comment on above: Order Comment: 'TROP ' Serial specimen #1, #2 or #3: 1 Performed By: #### L 500.2500, L100.0100, L501.4020 #### [facility] [address] [place], [address] EST GFR - AA 85 mL/min Normal >60 [facility] Comment on above: Order Comment: 'TROP ' Serial specimen #1, #2 or #3: 1 Result Comment: Afri can Turkmen GFR Calc Performed By: #### L 500.2500, L100.0100, L501.4020 #### [facility] [address] [place], [address] GAP 8 Normal 5-15 [facility] Comment on above: Order Comment: 'TROP ' Serial specimen #1, #2 or #3: 1 Performed By: #### L 500.2500, L100.0100, L501.4020 #### [facility] [address] [place], [address] GFR/1.73 sq M.predicted among non-blacks MDRD (S/P/Bld) [Vol rate/Area] 70 mL/min/{1.73_m2} Normal >60 [facility] Comment on above: Order Comment: 'TROP ' Serial specimen #1, #2 or #3: 1 Result Comment: Non- GFR Calc Performed By: #### L 500.2500, L100.0100, L501.4020 #### [facility] [address] [place], [address] Glucose [Mass/Vol] 97 mg/dL Normal 74-106 [facility] Comment on above: Order Comment: 'TROP ' Serial specimen #1, #2 or #3: 1 Performed By: #### L 500.2500, L100.0100, L501.4020 #### [facility] [address] [place], [address] Potassium [Moles/Vol] 3.4 mmol/L Low 3.5-5.1 [facility] Comment on above: Order Comment: 'TROP ' Serial specimen #1, #2 or #3: 1 Performed By: #### L 500.2500, L100.0100, L501.4020 #### [facility] [address] [place], [address] Sodium [Moles/Vol] 140 mmol/L Normal 136-145 [facility] Comment on above: Order Comment: 'TROP ' Serial specimen #1, #2 or #3: 1 Performed By: #### L 500.2500, L100.0100, L501.4020 #### [facility] [address] [place], [address] Urea nitrogen [Mass/Vol] 18 mg/dL Normal 7-18 [facility] Comment on above: Order Comment: 'TROP ' Serial specimen #1, #2 or #3: 1 Performed By: #### L 500.2500, L100.0100, L501.4020 #### [facility] [address] [place], [address] CBC W/Diff, Automatedon 07-0 4-2023 Absolute Lymph 2.42 X10 3/uL Normal 0.83-4.51 [facility] Comment on above: Performed By: #### L 500.2500, L100.0100, L501.4020 #### [facility] [address] [place], [address] Absolute Neut 3.3 X10 3/uL Normal 2.0-7.7 [facility] Comment on above: Performed By: #### L 500.2500, L100.0100, L501.4020 #### [facility] [address] [place], [address] Basophils/100 WBC (Bld) 0.5 % Normal 0-1 [facility] Comment on above: Performed By: #### L 500.2500, L100.0100, L501.4020 #### [facility] [address] [place], [address] Eosinophils/100 WBC (Bld) 2.8 % Normal 0-5 [facility] Comment on above: Performed By: #### L 500.2500, L100.0100, L501.4020 #### [facility] [address] [place], [address] Erythrocyte distribution width (RBC) [Ratio] 11.4 % Low 11.6-14.6 [facility] Comment on above: Performed By: #### L 500.2500, L100.0100, L501.4020 #### [facility] [address] [place], [address] Hematocrit (Bld) [Volume fraction] 44.8 % Normal 40-54 [facility] Comment on above: Performed By: #### L 500.2500, L100.0100, L501.4020 #### [facility] [address] [place], [address] Hemoglobin (Bld) [Mass/Vol] 15.4 g/dL Normal 13.0-16.5 [facility] Comment on above: Performed By: #### L 500.2500, L100.0100, L501.4020 #### [facility] [address] [place], [address] IG% 0.600 Normal 0.0-0.9 [facility] Comment on above: Result Comment: IG% - Immature Granulocytes (promyelocytes, myelocytes and metamyelocytes) > 1% indicates that a LEFT SHIFT is Present. Performed By: #### L 500.2500, L100.0100, L501.4020 #### [facility] [address] [place], [address] Lymphocytes/100 WBC (Bld) 37.8 % Normal 19-41 [facility] Comment on above: Performed By: #### L 500.2500, L100.0100, L501.4020 #### [facility] [address] [place], [address] MCH (RBC) [Entitic mass] 27.8 pg Normal 27.0-32.0 [facility] Comment on above: Performed By: #### L 500.2500, L100.0100, L501.4020 #### [facility] [address] [place], [address] MCHC (RBC) [Mass/Vol] 34.4 g/dL Normal 32-36 [facility] Comment on above: Performed By: #### L 500.2500, L100.0100, L501.4020 #### [facility] [address] [place], [address] MCV (RBC) [Entitic vol] 80.9 fL Normal 80-94 [facility] Comment on above: Performed By: #### L 500.2500, L100.0100, L501.4020 #### [facility] [address] [place], [address] Monocytes/100 WBC (Bld) 7.0 % Normal 0-10 [facility] Comment on above: Performed By: #### L 500.2500, L100.0100, L501.4020 #### [facility] [address] [place], [address] Neutrophils/100 WBC (Bld) 51.3 % Normal 47-70 [facility] Comment on above: Performed By: #### L 500.2500, L100.0100, L501.4020 #### [facility] [address] [place], [address] Nucleated RBC (Bld) [#/Vol] 0 10*3/uL Normal 0-5 [facility] Comment on above: Performed By: #### L 500.2500, L100.0100, L501.4020 #### [facility] [address] [place], [address] Platelet mean volume (Bld) [Entitic vol] 10.7 fL Normal 6.2-12.0 [facility] Comment on above: Performed By: #### L 500.2500, L100.0100, L501.4020 #### [facility] [address] [place], [address] Platelets (Bld) [#/Vol] 197 10*3/uL Normal 150-450 [facility] Comment on above: Performed By: #### L 500.2500, L100.0100, L501.4020 #### [facility] [address] [place], [address] RBC (Bld) [#/Vol] 5.54 10*6/uL Normal 4.6-6.2 [facility] Comment on above: Performed By: #### L 500.2500, L100.0100, L501.4020 #### [facility] [address], [address] RDW SD 33.2 fl Low 35.1-43.9 [facility] Comment on above: Performed By: #### L 500.2500, L100.0100, L501.4020 #### [facility] [address] [place], [address] WBC (Bld) [#/Vol] 6.4 10*3/uL Normal 4.4-11.0 [facility] Comment on above: Performed By: #### L 500.2500, L100.0100, L501.4020 #### [facility] [address] [place], [address] Chest PA and Lateralon 09-23 Chest PA and Lateral [facility] Imaging Services [address] [place] [address] Chest PA and Lateral MR#: [id number] Acct: [id number] Name: AMILCAR ODONNELL Rep #: [id number] : 1995 M 27 From: Henna Bonner PCP: Dr. Yosef Resendez MD Status: [facility] Study: Chest PA and Lateral Date of Exam: 09/24/23 Exam# [id number] Ordering Dr: Rigoberto Fournier MD :[id number] INDICATION: chest pain/sob EXAMINATION/TECHNIQUE: X-RAY - XR Chest 2 Views COMPARISON: No relevant prior comparison study available FINDINGS: LINES/DEVICES: None. LUNGS: No consolidation, edema or effusion. No pneumothorax. MEDIASTINUM AND CARDIOVASCULAR STRUCTURES: Cardiac silhouette not enlarged. Central airways and mediastinal contour are unremarkable. BONES AND SOFT TISSUES: Unremarkable. RAD/Chest PA and Lateral IMPRESSION: No radiographic evidence of acute cardiopulmonary disease. Electronically Signed: Henna Lambert MD at 2:02 EDT Reading Location ID and State: [facility] / [place] Tel , Service support , CC: Dr. Rigoberto Fournier MD; Dr. Yosef Resendez MD Intervention Specialist: Signed Normal [facility] Emergency Department Summary on 2023 Emergency Department Summary [facility] Medical Records Department [address] [place] [address] Emergency Department Summary 09/24/23 MR#: [id number] Acct: [id number] Name: AMILCAR ODONNELL Rep #: [id number] : 1995 27 From: Rigoberto Fournier MD PCP: Dr. Yosef Resendez MD Status:REG ER Location: ED HPI History of Present Illness Chief Complaint: Chest Other Informant: patient Onset/Context/Timing Onset: Hours (10) Activity at onset: gradual and onset Timing: Continuous Quality: Positive for Tightness Location: Substernal Current Severity: Mild Maximum Severity: Mild Worsened By: Nothing Relieved By: Nothing (Tried albuterol inhaler) Associated Symptoms: Positive for Dyspnea and Cough; Negative for Nausea, Vomiting, Diaphoresis, Fever, Lightheadedness or Palpitations Narrative Narrative: 27-year-old male has been having chest tightness and shortness of breath all day since early this afternoon. Has a history of asthma that is mild and does not flareup very often so we cannot tell if it is his asthma or not, he denies any obvious wheezing has had a minor cough. No fevers or chills or production/sputum. He tried his albuterol inhaler couple times but it did not help anything and it has persisted so he presents for evaluation. He denies any leg pain or swelling. No pleuritic discomfort. No recent long travel/immobilization/surger y or hospitalization. No history of DVT or PE. Denies any hemoptysis. [facility] Medical History (Updated 09/24/23 @ 02:[address] Rigoberto Fournier MD) POTS (postural orthostatic tachycardia syndrome) Syncope Near syncope Unspecified asthma, uncomplicated Seizures Migraine with aura GERD (gastroesophageal reflux disease) Osteochondrosis Attention deficit disorder Generalized anxiety disorder Panic attacks Major depressive disorder, recurrent severe without psychotic features Home Medications ???Medication ???Instructions ???Recorded ???Last Taken ???Type buspirone 15 mg tablet 15 mg PO TID 11/14/20 Unknown History albuterol sulfate 90 mcg/actuation 2 puff inhalation Q6H PRN 11/19/21 Unknown History aerosol inhaler (Ventolin HFA) bronchospasm midodrine 5 mg tablet 5 mg PO TID 11/19/21 Unknown History aripiprazole 5 mg tablet 5 mg PO DAILY 09/24/23 Unknown History brexpiprazole 1 mg tablet (Rexulti) 1 mg PO DAILY 09/24/23 Unknown History desvenlafaxine succinate 50 mg 50 mg PO DAILY 09/24/23 Unknown History tablet,extended release 24 hr ergocalciferol (vitamin D2) 1,250 1,250 mcg PO QWEEK 09/24/23 Unknown History mcg (50,000 unit) capsule lorazepam 0.5 mg tablet 0.5 mg PO BID PRN PRN anxiety 09/24/23 Unknown History attack omega-3 acid ethyl esters 1 gram 2 cap PO DAILY 09/24/23 Unknown History capsule omeprazole 40 mg capsule,delayed 40 mg PO DAILY 09/24/23 Unknown History release prednisone 20 mg tablet 40 mg (2 x 20 mg) PO DAILY #8 09/24/23 Unknown Rx TABLETS Allergy/AdvReac Type Severity Reaction Status Date / Time pseudoephedrine HCl (From Allergy PT UNSURE Verified 09/24/23 01:09 Sudafed) OF REACTION RUNDIC Allergy PT UNSURE Uncoded 11/19/21 10:02 OF REACTION Family History Father Asthma Surgical History History of tonsillectomy and adenoidectomy Social History Smoking Status: Never smoker alcohol intake: never substance use type: does not use caffeine: Yes Type: coffee Number of servings: 1 ROS ROS ED Constitutional Constitutional ED: Denies chills or fever(s) Eyes Eyes: Denies change in vision or diplopia ENT ENT ED: Denies rhinorrhea or sore throat Cardiovascular Cardiovascular: Reports as per HPI and chest pain; Denies palpitations Respiratory/Chest Respiratory/Chest: Reports cough and dyspnea; Denies sputum Gastrointestinal Gastrointestinal: Denies abdominal pain, diarrhea, nausea or vomiting Genitourinary Genitourinary ED: Denies dysuria or hematuria Musculoskeletal Musculoskeletal: Denies back pain or neck pain Integumentary Denies abscess or rash Neurologic Neurologic: Denies headache(s), paresthesias or weakness Psychiatric Psychiatric: Denies suicidal thoughts EXAM Physical Exam Const Vital Signs: 09/24/23 01:00 09/24/23 01:04 09/24/23 01:04 Temperature 974.8 F H 97.8 F Temperature Source Oral Oral Pulse Rate 87 86 Respiratory Rate 18 18 Respiratory Pattern Normal Blood Pressure 140/84 H 140/84 H Blood Pressure Mean 102 102 Pulse Ox 98 99 Oxygen Delivery Method Room Air Room Air 09/24/23 01:25 Temperature Temperature Source Pulse Rate 76 Respiratory Rate 15 Respiratory Pattern Blood Pressure Bl (more content not included)... Normal [facility] L501.4020on 2023 TROPONIN-I HS < 3 Low 3.0-78.0 [facility] Comment on above: Order Comment: 'TROP ' Serial specimen #1, #2 or #3: 1 Result Comment: Shawn haynes Note: New Test Units and Gender Specific Reference Ranges. For more information see Policy Stat Procedure [place] High Sensitivity Troponin (TNIH) and attachments. Performed By: #### L 500.2500, L100.0100, L501.4020 #### [facility] [address] [place], [address] M100.678on 2023 M100.678 SARS-CoV-2 (COVID 19 ) Negative INFLUENZA A Negative INFLUENZA B Negative RSV PCR Negative Normal [facility] Comment on above: Performed By: #### M 100.678 #### [facility] [address] [place], [address] SURGICAL PATHOLOGYOrdered By : Amor Jordan on 06-18-2023 Case Report Surgical Pathology R eport Case: [id number] Authorizing Provider: Quyen Martinez MD Collected: 06/15/2023 02:23 PM Ordering Location: Ambulatory Surgery Received: 06/16/2023 03:47 PM Pathologist: Amor Jordan MD Specimens: A) - TERMINAL ILEUM BIOPSY, R/O Inflammation B) - COLON RIGHT BIOPSY, R/O Inflammation C) - COLON LEFT BIOPSY, R/O Inflammation [facility] Work Phone: FINAL DIAGNOSIS [id number] NVxhbnNp XVMlmPFcL1AnrmzyWZbuZG0aJY8h pEvkvPBgsCYuELOqTjMfc8qjc802 xCTpn0jfUKUJtyjrlKv1uLcjM48y q2E3JzdsC29dzYAxBHK3HMApUPBl nASlBWHiUYN7IPPtiLEdM0cfARHe DU3ndakfAUmpLVkpOWOjuTS0LKOv qITuR2LwDDAyQFicUTIpkgq7PwCs Qy2izPTqsSfoLHlmYPWnFLQtORdv TTCoMlEePT4mXKQuqs6mizNdVIol JOPdZPVkcD0qy8f4MCNbvyVkPUro ZZFmUB91A67xLWW8sFJhPV2bEJGz C80oFioaSX64SRPcrCmumK0wzPTg WTBhz1MmWIzqdXmnKOBtiagiOOOu Zq6oSNMwS3n2OVVbaL2zTFUtzQ3n k7k5ORGsaoCxCWTrtA9nlOUwiBZf b5LwMZbeuNhiyy0pv5aqphnbqJSt yfUdbZB2iG3ev0clEzHcVh0qeh9m dCp8yM7kaCUwCDRjikQHXvFbLASs qMNrh4vbggmeZhsygPV1JcweBISm PMLGd9jhuqtuTH34K69dQNM3oHFj OO8xJWExA91eInpeVF96FSWkgQin dO7iwKZfUESfy0CsCNkroFhqVWMv cn0= [facility] Work Phone: Gross Description k0qhvFZzRTOitQPNPGT5 HWLaPG5f zKxweIo5gQkrSBWbkdA8aRQlGZsy b8arEHH3o8jtksOABqfwQCTyHU3s WCvhEGVuZP6sFdAjAOLuXiPuVYMm kSCtluUmVkNlSRTpmFFqyDV6OENm LR0edosdOVleITrxYAGqlrX8CRCi zMTrC5HoSXTmLB5uxbsvFTY9OYWA LltoLe1qdHRnpFgxWfDaCfMzBWSu LUFwHXXuz5tdocFOjeymmWc5kE9H NOEhL5XySV6Tf0fqWXJkmFLlTIM3 HPdys2msWBlgNTH7CHDiZKKaKUIu PD0RSiVgRQO8RaPsWWbeCcI6EUi2 FJAUEYZlADMkQGLjIXMlOZj3WGxm XFxuaCBcXHQgMSBcXGZsIFxcbmN9 v3orRJCyxFDsNMC9RLsvf0kuKUbv CWX1VIIgXdXgOWUxTH3EPoEdQOI5 YbYgEBmhYfQ1BMc2PCIUOrSvWaVo PEo7DVG2KEAeHWz0RSa3FFmUBcFz JyXuJQHrRAN2HjG8QRKoNjNyGLDv HmMgSCTiEIUiPVyuqMKoPP8deSzu HCRoCO0BGDRhLHkdOPByDaVeWJ5t LHZVVAoGDZblQIrYKS2yOpxQVHRK FFf9kdIfKZIsrbLXHijiHAHnDF0W LBDsGNoqWBh2dyRaXXIfLkMkVTQs D47dn2NJq4ZoWV2BDWr6czHfojgq NVNpCZYlqSPVf3YiACTBDzejcaDn UKHpC3JibhTlXLpfOKKwnq8jnQjg FMWtRDDyyAk3jKLnEVHgfVCmBGAn b3UixNBlYWMmg8T3ULQzx5D5YDSs C0gxZAijaJaxHdL7gxYrGqbfjRTz YvWsfSGvFuJoT39cUEBtcSOteBmk j3FiaYx6vQRfLXvfAY7oIUYwQHVf NLS9KP1XKvbdlGzwBxAmfGQyWyC6 FAUbyBLkLGX5IF8nfUztWIDzKIw3 GTqrJGBjV1YuM2ZzVFiaAgNsIEjm UXNhAMEkCFprSCKaK4DEMKJrOMsp MFC3ARJgIBs0XIb4DO6XCaZkRUL1 VIWaCrbrABItRBr5SJuqZQ5YIXYj EQG1NQO5DXxjMYC3CoM3DFxicWZs YIrao4UzLvYgRMVvOCexqpX4HRHw hpHon9DeBJSrPGJfR4gsAlIxTLSJ EoduqkUrOAGnUTPHKG5FQVCWV8gB LMPTN8XEUGbgMYVdPAwqoLCxOLTV ClxwbGFpblxsdHJjaFxmczIyXGVw jGBUOPJ1UQ5iKBBQPkzmsCFiNCPb g2ZlSAsopIqjXZFhOcJyu7WxGNfp cGljWHNhMzAgDQpcZnMyMCBSZWNl xCOyEWWetuUts9PdFMdybyLzsxHz bUUtyQkatHAymCowS0VsFX1iJFTz nvqoc32zfGC1jJHdnQTdZUlxnkEy LBReydiiiA4lJD0oKAaiMC0hJLzl IM6qCCNzOwPKw0VdlQw6POQ4Zi3z uVXlFQWxwhDvdsNpC8Peb2E1pMAx DEumRHFtO41ge5LYx7Tli8yfeMpx v3LlhYOxYS3yzEFrFE4Sy2ydTXZn uPVjSNP1EOnxi9jjWHxfNAB7SPTu WhNmAPOaEU3TMfKwCYN0SuIfWRky BjQ4ANj3CWURNsOuLtFwAFr0DDZ9 ErClGAj1DUt9TMiUVsWgVoEvBLMt ZkR6TzX3BUFgBuGpNCZjDvMvTFYb ATDqAEecvFYvBS2ncPuhOWQzGZZf BFC1UEQfwHKVs9NoZKIdQQjuDfUl XpBWRjYZK5dHKrUWMFZLWNZMY4EL WVxwYXIgDQpccGFyZCANClxwbGFp blxsdHJjaFxmczIyXGVwaWNOZXN0 KC3uTQNJPnaahMAdSIJzf0QoSUae cGljWHNiMzAgDQpcZnMyMCBSZWNl yYBvYDLjddKoo6HhMOhehkGrxaVq uKgaMNNnBOEnwpSgUvJ3SO6qMBPe LjLkxKerg6GcESPqQ0FdI7A4gG5o QCZaAEAuNRH6MGLgSrJ3MSUwHMCd hH3mYS33FNadoTTlzIMztPF8BKMo fF0fj42uIANph3YkdIBzBdBikSSk EV6PKPYholJlgLAjsIBvHX5SQXXt swIFLdkgs5RrZUT8CC4alfF3aH8n YGTljsXnlw4rGNUmuRZRtUY6LDxp cpFaP2lsulgfGAO2APEsTUN1J9pb KPOQwfGcJJMNxCP3AVuzdsPqRL3L UHK4IDm7JNNgrvNDHqprGDYgUNtQ YTEoENYwQ2amXtPlEJHrBeTsYkq0 YXOVHGjqMZFbULlxf0YiNUajrVqx PLLvIcJpDPmdLSPxJ50tv2VYx1Vf f6oemXqzq7BafTXuPS30PGMflBMs ULQ0LE2bmGboTSIyMZjjgASfMOGO LmtfswMkXI0ZuF== [facility] Work Phone: Performing Lab g7pghKUjKSYowANhFiRj MDAwXGFu g4hvVZKcoEQiKiZrHrYaBmIcUmua qTZaZRAnNaPdt3vmh616tESmu5kv SVOfLvR8eQMnSLYnpFHmD158SXSl LVzvu4kpm2MkWMRilRZdl8E1JLKT ywuooBp8fSecR80xx3R8YzbyI9gq NADzOXRqX4FiMZ5iHMUeEsn2YQM4 BUL2SEMxYNMhF3RuZD9cIRHuyBKp ZPx1m0wxjHonXTBqIQR2g3puFNfn isZhXD1pcp3ssXg0y5mlspFfHHWx DQQkkOSXUVUyL2YcaKvdGc6awSk7 kOcuRbjmZVE6Sau9TE3zwc05mcv2 mRlqBAYnpxjjRsB9ATfrWDNevkbg YZa4DAwfSUHtqND0RCGsrRVmF5Qy XPjtVH2uhxd3SQK6BQxlIANkLiZ4 OOLyrRDxICEsdCfxBWpmd482OMW8 LuRdAM9bD0Lrs4V6xY3wrNJoCARr lNYrNnXgTEKkvs6fjPVuQHzsj3Rh QUQ9ybQ7yLZrtGMtMMMzSN80Cojn f1EiBntvz2LcQ84yzWK6SLnjx3cm MQ7sTwJ0jrVhIXcpo0hwlX4xPaX7 HEooSV5wXG3pKMFbiC5jejenSHJk MuFuzbzzTLYwuYrxacMsRz7odUvr WKN2EFujL6bdrQ6zWdM4VXueT5gu wI6hDQt0ZFsczAE0GLSugY2eXF6q kckbn5yoOKinZHznPXZjkhY1amGi CXOmpQQwB7DpfR2iNIFhAE3jkkis p6trKDU6QXdvFRMvUWZ7ScZrYUUe e7Hvmnz5IkYmj1HytIIdXQngV69g t933CZLcwlElE7gfqFRycaojwWSc wqcdQEpclyK1UBQhFNRcYJcrROOk XGZzMjJcbGFuZzEwMzNcaGljaFxm QYdpHaIcSWIyQLyvJ3xbHyFmBkDy VoRDtBVelv6foHijYXyutJFnjQHj nJH9hP0rILOqpwPvkh3iKZLrcYPF xVE6YFgzrqVoT2endkyvYAV1MCAg HGI0U8oaMPJEmdPqUAQfUPFtsBNo JYTKXYM1EWJ5OGInOFJHRWLeNQW5 AVE0TRMrQUMpmEQnKEOmhnlcHUPs RGIbGYagVXKmGWQzSrVgnQlpsP8i ZnBdIpVcVzwkOD4gAKEcU3vspVXx UGEuRTLbJ3tfOlPwbQ8tcQlaSXeg ZjJcZnMyMlxsdHJjaCBMYWJvcmF0 n7Z8NOsyeAJqibccULvpseWjLRpk dhzwHVPcKYyaK4iyMmEiAGYqcVic URaej1VnTADtFYWxLiYlFOnhGZP1 d5U7EVisoDQehmXXZbLZGF1rhOOt zzgwYR1LExejFMD7 [facility] Work Phone: [facility] Work Phone: Flexible sigmoidoscopy study on 06-15-2023 [facility] Gastrointestinal Endoscopy Patient Name: Amilcar Odonnell Procedure Date: 06/15/2023 1:58 PM Date of : 1995 Admit Type: Outpatient Age: 27 Room: [facility] Gender: Male Note Status: Finalized Attending MD: Quyen Martinez MD, [id number] Procedure: Colonoscopy Indications: Chronic diarrhea Providers: Quyen Martinez MD Patient Profile: Refer to note in patient chart for documentation of history and physical. Last Colonoscopy: 1 year ago. Referring Physician: Ana Rodriguez (pa) (Referring MD) Medicines: Monitored Anesthesia Care Complications: No immediate complications. Requesting Provider: Procedure: Pre-Anesthesia Assessment: - Prior to the procedure, a History and Physical was performed, and patient medications and allergies were reviewed. The patient's tolerance of previous anesthesia was also reviewed. The risks and benefits of the procedure and the sedation options and risks were discussed with the patient. All questions were answered, and informed consent was obtained. Prior Anticoagulants: The patient has taken no anticoagulant or antiplatelet agents. ASA Grade Assessment: See anesthesia record. After reviewing the risks and benefits, the patient was deemed in satisfactory condition to undergo the procedure. After I obtained informed consent, the scope was passed under direct vision. Throughout the procedure, the patient's blood pressure, pulse, and oxygen saturations were monitored continuously. The Colonoscope was introduced through the anus and advanced to the terminal ileum. I was present and participated during the entire procedure, including non-amaya portions, and during the administration and monitoring of Moderate Sedation. The colonoscopy was performed without difficulty. The patient tolerated the procedure well. The quality of the bowel preparation was excellent. The ileocecal valve, appendiceal orifice, and rectum were photographed. Moderate Sedation: MAC anesthesia was administered by the anesthesia team. Findings: The perianal and digital rectal examinations were normal. The colon (entire examined portion) appeared normal. Biopsies for histology were taken with a cold forceps from the right colon and left colon for evaluation of microscopic colitis. The terminal ileum appeared normal. Biopsies were taken with a cold forceps for histology. Impression: - The entire examined colon is normal. Biopsied. - The examined portion of the ileum was normal. Biopsied. Recommendation: - Patient has a contact number available for emergencies. The signs and symptoms of potential delayed complications were discussed with the patient. Return to normal activities tomorrow. Written discharge instructions were provided to the patient. - Resume previous diet. - Continue present medications. - Repeat colonoscopy at age 44 for screening purposes. - Return to referring physician as previously scheduled. Procedure Code(s): --- Professional --- 05878, Colonoscopy, flexible; with biopsy, single or multiple CPT copyright 2020 [employer]. All rights reserved. The codes documented in this report are preliminary and upon senior economist review may be revised to meet current compliance requirements. Attending Participation: I personally performed the entire procedure. Scope In: 2:16:31 PM Scope Out: 2:26:41 PM MD Quyen Small MD 06/15/2023 2:34:03 PM This report has been signed electronically by Quyen Martinez MD Number of Addenda: 0 Note Initiated On: 06/15/2023 1:58 PM Estimated Blood Loss: Estimated blood loss was minimal (more content not included)... PROVATION [facility] Rad[facility] Study observation (narrative) [facility] SURGICAL PATHOLOGYOrdered By : Aries Ortega on 05-26-2023 Case Report Surgical Pathology R eport Case: [id number] Authorizing Provider: Alvaro Hale MD Collected: 05/25/2023 08:22 AM Ordering Location: Ambulatory Surgery Received: 05/25/2023 07:37 PM Pathologist: Aries Ortega MD Specimen: ESOPHAGOGASTRIC JUNCTION BIOPSY [facility] FINAL DIAGNOSIS e6hqwFYoORNwmEJhEEBx NVxhbnNp ZDCfjJHaR4GjyogvQGqcKO3hRS8k sSvyoXVpeBTmHEIgScKhn4ete578 wGUhf8neYJGYunmmlJw5eFueM68g n2W3NsfjW94kfVPvENM1CYLwCLEn iQEtGCNtBQC6AGEytLTxK5awQCBf BA0waicxTXkhAPeoSCEshKB9BHKt pKEmY9LvFCFmDPtvXMAjzmu2QvYv Gd9rdXOmfFcqACeiCYCqEZJmTFro NILjTrCaRX1nGSNgc9LrZQmwZ9Qh zALyCeLkmZ4vcPsvfnbzLqwksCT4 ZrlsLITwTW3sDOMnLEVQMDYasOq5 WSQtbYWbkL42akQnpLDvv3DbBN5r IGluZmxhbWVkIGNhcmRpYWMgbXVj l4DeQnflJWWeJB8vBZTeVVVJH6O3 pUAaOXJwsC25ioTkrXl3oYPgpJWq AOXxy8eop4MgpUpiQJs4iZK9prD2 YGBhf8pgc9RoiIaqFTowYJSnk1ip Y9acJLxuE0bchM62TSIvYdhnqOLd GlbfNNMdUF5nMGOxWTMIafVijwre WY0lJPPxDhRxsoMcn5QknvCuUR5c gIRymOQluZXuc1UiZXibqKyjn3ty LlxwYXJ9 [facility] Description o8tnrJQpUEPwdITQYFM1 SIDgCX3i mViidYf4mWptQXFsfeA4tFFtSAww r1iiMLL1c3ytvuBURcftHDYhXG2j RUgsYSAiOB6hCtUwGFQzMbZoRLSw mQAfudSgDbHoOIAnvFKsbDD4ZFWx FF9eccetPEbgAHnyZREszoU9MBNn wAGxQ2CiWSXnDF4kttneGNI4FVYQ NvakOx5prWEvdRpyXpLgVjQnKHYe AGGjHZYag8sddsBClnxbqRl6bS5T VFFsS3ChYZ6Xw8hgTJJhsMDnGJA6 IUvnh0khJMgxRET8XJGtVGHhSBEj EN5TIpVgKVI3NQz7UbCnLfT9MMw6 LSGJTTRkCRYmOoF8IeiqYDv0DNuj XFxuaCBcXHQgMSBcXGZsIFxcbmN9 o9kyMZNzyDKtCAY7OCrcz4fnOTyc OTB1BMUtPxVmWCIrQO9LIbYrQCV8 CAc1JeNwBhT5MKt1QQSKExNuAyJi OYv2YEU7ILNuFQn0VFr5NGtVCrUy PqUmYTH0LXZ1UkF7MJFmZHVzYDJe ObLkTULwHDBkFArbfZHhJI4voNxh PVYgTC6CZOWdCApfZQMpToKfAW2f XFPHWBmLB05RSHAJGhhUAWuEZrLK NB3DXEAEP7TBKXlvjVNoaAsdYHVn DQpccGFyZCANClxwbGFpblxsdHJj nWnnanDwBNSmzJCIQXW1YC3zVWWR ClxsdHJwYXIgDQpcZnMyMCBSZWNl bAMuBLNwdqPit9AkLZqptqFmjbEx ciDivIioH9Jdj8FfaANbNKoeyEEy NFLhh5W8GLBdh9I6YVCcCPPzsKBb cjgbCD32YPgfFJ2oUKrgBC3vVSYa KuGJm7EutZy9DEU7Wd0vqVYkSZWr blGizwQwX2Mlg0Q7aXEnXBwgXHNr XAlwCGWgbiUYBkvzMIJuSEcUwn6g jiWciFCvcU7whXbsziJxIXWwg5Kn XDHdYTRgJ2jwejJrSS0dNMJwnK7d YywgOTUwMCBFdWNsaWQgQXZlLiwg U5grfzFjRK1vPCWHRRY1ZEW9CGcy RANxXKnwmUBiTP9ZZ5nrSUZyV4zc JAcqHoKaVOT5XqY1AYJDWI8eoIJr GB5GDMJtsbZLCpfmVDWsKYVhjNTM k3MlNNEAAmtzpJgmHcNccFPlEsM0 RKWkwIRxCSO1GL4bfYjgWBIjV3Fy A0KcujE1VXOtwzWLHbzrCFNpVN1W XGZzMjIgDQp9 [facility] q8ggnOYmWNVceRCvIvFm MDAwXGFu h1cnIZUwaQEeFsSnNiGmIzUvGfii nJLiGHUmDlXyu4tpv328pWWza0gl VRQbZeH6fOHjWLTwvNTtK305FSVc VYcck3lln4IuTHVckEGdi3F1LRLW fmumxCm8eAkoJ28lz3E8NtpoH5dc LJFqDHHzJ5ImAD4kGGUyHvt5BQG1 MXS7JZLjAVBvO6StMT7hCDCdzLBz VUl5t0bqdTniYTGcRGD5j1plLNgo jhIcDU6sfm3swCz0f6jczjFzWETj PYCtkLDJZDHtO3IotTelBl0ipMn4 xFtbKxocJOX6Mbr5KD6xso10ukc7 kFvsJBUvagwsDrS5YGplAHHnyjfk VUn6HBhgZXRauYI7DNRwgHBpE9Ru DRQsCC6poyh3ZFQ9SUilAVPkBhV4 GZWpbEOaLZYmzGljXDuqi116BQF5 BvBnNJ7zI9Vgc2S9yS6vdCYgVNOn jZMeQnKjPKJuls4aySVwZQabh5Dl FNF1uzG7uDTvqNXrPXTiLT81Zqtw i8OmQzohm6EnU16gnIR4CHyun4zo TF4jOzG7pmScJQypt9aquF4pRpM7 CLauYS2zPZ1mCWRgyD2ujozoIGKl CyRgsqyrJEGmyCcqdkDkBo0sjHxd NUS2QLneV3skoG7cFzD8HIgxW6ko vQ9nJOa5CKzdhBS2NOSxeE4oOL7u jjjng4gwPVzrRMkwJJMrxrF9apY2 OMTsxCNiP4SxsQ7mBGKdBC1yrwcg r1rlZZN0RTytFXGoLWI9UlCvBWNt c3Hbocj8GfOjp9LodDUhIRkiY35d v596FVRbprMvB8znzUOdttevdBIj rgdoVQfyvgM3ZBHbSARfZOzrZPNo XGZzMjJcbGFuZzEwMzNcaGljaFxm CRweTtZqDQKnRBfnB9boLyJnUhBm LbKRgDDbpb6fcGpePLhuwSTezEQa pUH2dH9wKXKclnSgvg9jAMXhoLJW wJP6JGoqxkRxO7dzotieQUoqlSbv ynUgiUFDa3WuhMRoyCxtHyq8KLLO CRcbtTDaEFLWYSenPSC4DbjuhTWz QAVzYFYNEBX5MNOuNCOiXCQEVTrP AvMjKdEzJqW5HVCdZIPvqaktTDDv gFDsFExrxMBykglwECvqtxD3YOCr YWluXGYxXGZzMjJcbGFuZzEwMzNc zDwaaNkxRHltRqKbKWRzZHetQ8mg ThUaV4ObOGDzTkJzqLQrT5hoYXEe t0RtiX8gnZUpbXaqsP5jNxRxXvCh SzxeDS2rAIUlH4fxaXWhXPFkBTDy B4qbMfPovD3rhUypJCykagKeYHIs inXgvN2rQmFLmETwggQPDvUEm1S2 RNBtFD7jJU2hnGDwbA== [facility] EGD Study observation Narrat camille 05-25-2023 [facility] Patient Name: Amilcar Odonnell Procedure Date: 05/25/2023 7:48 AM Date of : 1995 Admit Type: Outpatient Age: 27 Room: [place] [address] Gender: Male Note Status: Finalized Attending MD: Alvaro Hale MD, [id number] Procedure: Upper GI endoscopy Indications: Follow-up of reflux esophagitis Providers: Alvaro Hale MD Patient Profile: Refer to note in patient chart for documentation of history and physical. Referring Physician: Ana Rodriguez (pa) (Referring MD) Medicines: Monitored Anesthesia Care Complications: No immediate complications. Requesting Provider: Procedure: Pre-Anesthesia Assessment: - Prior to the procedure, a History and Physical was performed, and patient medications and allergies were reviewed. The patient's tolerance of previous anesthesia was also reviewed. The risks and benefits of the procedure and the sedation options and risks were discussed with the patient. All questions were answered, and informed consent was obtained. Prior Anticoagulants: The patient has taken no anticoagulant or antiplatelet agents. ASA Grade Assessment: II - A patient with mild systemic disease. After reviewing the risks and benefits, the patient was deemed in satisfactory condition to undergo the procedure. After obtaining informed consent, the endoscope was passed under direct vision. Throughout the procedure, the patient's blood pressure, pulse, and oxygen saturations were monitored continuously. The Endoscope was introduced through the mouth, and advanced to the second part of duodenum. I was present and participated during the entire procedure, including non-amaya portions, and during the administration and monitoring of Moderate Sedation. The upper GI endoscopy was accomplished without difficulty. The patient tolerated the procedure well. Moderate Sedation: MAC anesthesia was administered by the anesthesia team. Findings: The Z-line was irregular and was found 40 cm from the incisors. Biopsies were taken with a cold forceps for histology. Verification of patient identification for the specimen was done. Estimated blood loss was minimal. Impression: - Z-line irregular, 40 cm from the incisors. Biopsied. Recommendation: - Patient has a contact number available for emergencies. The signs and symptoms of potential delayed complications were discussed with the patient. Return to normal activities tomorrow. Written discharge instructions were provided to the patient. - Resume previous diet. - Continue present medications. - Await pathology results. - Return to GI clinic as previously scheduled. Procedure Code(s): --- Professional --- 30614, Esophagogastroduodenoscopy, flexible, transoral; with biopsy, single or multiple CPT copyright 2020 [employer]. All rights reserved. The codes documented in this report are preliminary and upon senior economist review may be revised to meet current compliance requirements. Attending Participation: I personally performed the entire procedure. Scope In: 8:15:21 AM Scope Out: 8:18:28 AM MD Alvaro Middleton MD 05/25/2023 8:21:36 AM This report has been signed electronically by Alvaro Hale MD Number of Addenda: 0 Note Initiated On: 05/25/2023 7:48 AM Estimated Blood Loss: Estimated blood loss was minimal. PROVATION [facility] Study observation (narrative) [facility] XR Esophagus Views W contras t Tenzin 05-19-2023 [facility] AMYLASE BLDon 05-11-2023 Amylase [Catalytic activity/Vol] 51 U/L 30 - 104 U/L [facility] CBC W Auto Differential pane l (Bld)on 05-11-2023 Basophils (Bld) [#/Vol] 0.04 10*3/uL <0.11 k/uL [facility] Basophils/100 WBC (Bld) 0.7 % [facility] Differential cell count method Nom (Bld) Auto [facility] Eosinophils (Bld) [#/Vol] 0.23 10*3/uL <0.46 k/uL [facility] Eosinophils/100 WBC (Bld) 3.8 % [facility] Erythrocyte distribution width (RBC) [Ratio] 11.3 % Low 11.5 - 15.0 % [facility] Hematocrit (Bld) [Volume fraction] 46.9 % 39.0 - 51.0 % [facility] Hemoglobin (Bld) [Mass/Vol] 16.5 g/dL 13.0 - 17.0 g/dL [facility] Immature granulocytes (Bld) [#/Vol] <0.10 k/uL [facility] Immature granulocytes/100 WBC (Bld) 0.0 % [facility] Lymphocytes (Bld) [#/Vol] 1.94 10*3/uL 1.00 - 4.00 k/uL [facility] Lymphocytes/100 WBC (Bld) 31.6 % [facility] MCH (RBC) [Entitic mass] 28.2 pg 26.0 - 34.0 pg [facility] MCHC (RBC) [Mass/Vol] 35.2 g/dL 30.5 - 36.0 g/dL [facility] MCV (RBC) [Entitic vol] 80.2 fL 80.0 - 100.0 fL [facility] Monocytes (Bld) [#/Vol] 0.41 10*3/uL <0.87 k/uL [facility] Monocytes/100 WBC (Bld) 6.7 % [facility] Neutrophils (Bld) [#/Vol] 3.51 10*3/uL 1.45 - 7.50 k/uL [facility] Neutrophils/100 WBC (Bld) 57.2 % [facility] Nucleated RBC (Bld) [#/Vol] <0.01 k/uL [facility] Nucleated RBC/100 WBC (Bld) [Ratio] 0.0 /100 WBC [facility] Platelet mean volume (Bld) [Entitic vol] 10.5 fL 9.0 - 12.7 fL [facility] Platelets (Bld) [#/Vol] 188 10*3/uL 150 - 400 k/uL [facility] RBC (Bld) [#/Vol] 5.85 10*6/uL 4.20 - 6.0 0 m/uL [facility] WBC (Bld) [#/Vol] 6.13 10*3/uL 3.70 - 11.00 k/uL [facility] Comprehensive metabolic 2000 panelon 05-11-2023 Albumin [Mass/Vol] 4.9 g/dL 3.9 - 4.9 g/dL [facility] ALP [Catalytic activity/Vol] 54 U/L 38 - 113 U/L [facility] ALT [Catalytic activity/Vol] 33 U/L 10 - 54 U/L [facility] Anion gap [Moles/Vol] 8 mmol/L Low 9 - 18 mmol/L [facility] AST [Catalytic activity/Vol] 17 U/L 14 - 40 U/L [facility] Bilirubin [Mass/Vol] 0.9 mg/dL 0.2 - 1 .3 mg/dL [facility] Calcium [Mass/Vol] 9.6 mg/dL 8.5 - 10. 2 mg/dL [facility] Chloride [Moles/Vol] 102 mmol/L 97 - 10 5 mmol/L [facility] CO2 [Moles/Vol] 29 mmol/L 22 - 30 mmol/L [facility] Creatinine [Mass/Vol] 1.24 mg/dL High 0.73 - 1.22 mg/dL [facility] Estimated Glomerular Filtration Rate 81 mL/min/1.73m >=60 mL/min/1.73 m [facility] Glucose [Mass/Vol] 97 mg/dL 74 - 99 mg/dL [facility] Potassium [Moles/Vol] 4.3 mmol/L 3.7 - 5.1 mmol/L [facility] Protein [Mass/Vol] 7.2 g/dL 6.3 - 8.0 g/dL [facility] Sodium [Moles/Vol] 139 mmol/L 136 - 144 mmol/L [facility] Urea nitrogen [Mass/Vol] 15 mg/dL 9 - 24 mg/dL [facility] LIPASE BLDon 05-11-2023 Lipase [Catalytic activity/Vol] 27 U/L 16 - 61 U/L [facility] NURSING PROGon 03-28-2022 NURSING PROG HNO ID: [id number] Author: Madonna Horowitz RN Service: Nursing Author Type: Registered Nurse Type: Nursing Progress Note Filed: 03/28/2022 10:43 AM Note Text: Other: Nurse called and spoke with patient. Patient states he has redness and bleeding in anal area and complains of pain /. Patient states he did call Dr. Gordon's office and was told this is normal. Patient does have a post-op visit scheduled in a week. Instructed patient if symptoms become worse to contact Dr. Gordon's office or go to the emergency room. Patient verbalized understanding. Normal [facility] OPERATIVE NOon 03-28-2022 OPERATIVE NO HNO ID: [id number] Author: Valeria Gordon MD Service: General Surgery Author Type: Physician Type: Operative Report Filed: 03/28/2022 11:16 AM Note Text: [facility] - Operative Report - [place] : 1995 AGE: 26. SEX: M PATIENT [place] [facility] [place]: ATTENDING PHYSICIAN: Ariana Ward MD CSN NUMBER: [id number] DATE OF SURGERY/PROCEDURE: 03/27/2022 INCISION/PROCEDURE START TIME: 1135 INCISION CLOSE/PROCEDURE END TIME: 1204 PREOPERATIVE DIAGNOSIS: Diarrhea and nausea and upper abdominal bloating. POSTOPERATIVE DIAGNOSIS: Diarrhea, nausea, upper abdominal bloating, small hiatal hernia with sliding component and hemorrhoids. SURGEON: Valeria Gordon MD CABIN FURNISHINGS INSTALLER: No Additional Staff SURGERY/PROCEDURE: Esophagogastroduodenoscopy with biopsies and colonoscopy with biopsies. ANESTHESIA: Monitored anesthesia care LOCATION: [facility]. INDICATIONS: Amilcar Odonnell is a 26-year-old male, who presents with [...] and entire random colon. Valeria Gordon MD LW:[id number] /[id number] Normal [facility] ANES POSTPROC EVALon 023 ANES POSTPROC EVAL HNO ID: [id number] Author: Ariana Ward MD Service: Anesthesiology Author Type: Physician Type: Anesthesia Postprocedure Evaluation Filed: 03/27/2022 12:13 PM Note Text: POST ANESTHESIA EVALUATION NOTE : 1995 Procedure Summary Date: 03/27/22 Room / Location: SURGERY Anesthesia Start: 1129 Anesthesia Stop: Procedures: EGD DIAGNOSTIC COLONOSCOPY DIAGNOSTIC Diagnosis: Change in bowel habits Diarrhea, unspecified type Nausea Scheduled Providers: Valeria Gordon MD; Ariana Ward MD Responsible Provider: Ariana Ward MD Anesthesia Type: MAC ASA Status: 2 Anesthesia Type: MAC Last Vitals Vitals Value Taken Time BP 98/57 03/27/22 1212 Temp 97.5 03/27/22 1212 Pulse 77 03/27/22 1212 Resp 15 03/27/22 1212 SpO2 99 03/27/22 1212 Post Anesthesia Patient Status Patient Evaluation: bedside. Anticipated Disposition: phase 2 then home. Neurological Status: aware and responsive. Pulmonary Status: breathing comfortably on room air Airway Control: returned to baseline unsupported. Cardiovascular Status: stable. Pain Management: clinically adequate Postoperative Hydration: acceptable. Intraoperative Events: no significant anesthesia events Post Operative Nausea/Vomiting Status: no significant post operative nausea or vomiting Recommendation: continue current plan of care. Anesthesia Observations No Documentation SIGNATURE: Ariana Ward MD PATIENT NAME: Amilcar Odonnell DATE: March 27, 2022 TIME: 12:12 PM CSN: [id number] [facility] ANES PRE-OPon 03-27-2022 ANES PRE-OP HNO ID: [id number] Author: Ariana Ward MD Service: Anesthesiology Author Type: Physician Type: Anesthesia Preprocedure Evaluation Filed: 03/27/2022 11:24 AM Note Text: ANESTHESIOLOGY DAY OF SURGERY NOTE : 1995 Procedure Information Date/Time: 03/27/22 1100 Scheduled providers: Valeria Gordon MD; Ariana Ward MD Procedures: EGD DIAGNOSTIC COLONOSCOPY DIAGNOSTIC Location: SURGERY Estimated body mass index is 29.24 kg/m? as calculated from the following: Height as of this encounter: 175.3 cm (5' 9). Weight as of this encounter: 89.8 kg (198 lb). Most recent hematocrit and potassium results: Hematocrit 43.8 02/18/2022 Potassium 4.6 02/20/2022 Relevant Problems CARDIO (+) Migraine without aura GI (+) Esophageal reflux NEURO-PSYCH (+) Headache (+) Migraine without aura Other (+) Other juvenile osteochondrosis I - PHYSICAL EVALUATION AIRWAY Patient intubated: No. Tracheostomy tube not present Mallampati: I. TM distance: >3 FB. Neck ROM: full ROM without neurological symptoms. Mouth opening: adequate. Short neck: no. Thick neck: no Haro present: yes DENTAL Dental findings: missing tooth/teeth. Additional comments: Missing many upper lower left and right. Additional exam findings: yes. PULMONARY Normal pulmonary observations. II - ANESTHESIA PLAN ASA Score: 2 Anesthetic Plan: MAC The patient is not a current smoker. NPO Status: adequate Beta Amando Monitoring Plan Monitoring plan: standard ASA. Post Procedure Analgesic Plan Postoperative analgesic plan: parenteral or oral opioids. Informed Consent Anesthetic risks, benefits, alternatives, personnel and consent discussed: yes. Patient / Responsible Republican agrees to proceed: yes Patient / Surrogate agrees to blood products: Yes DNR status not reviewed with patient and/or family prior to surgery. Significant changes in the patient condition since the History and Physical, not otherwise documented in primary service progress note: no. Potential Anesthesia issues that may suggest increased risk of complications or contraindication to planned procedure: none. Vitals Value Taken Time BP 127/80 03/27/22 1030 Pulse 76 03/27/22 1030 Resp 13 03/27/22 1030 Temp 36.6 ?C (97.9 ?F) 03/27/22 1030 SpO2 97 % 03/27/22 1030 Outpatient Medications as of 03/27/2022 Medication Sig - FLUoxetine (PROZAC) 40 mg capsule Take 1 capsule by mouth once daily. - ARIPiprazole (ABILIFY) 2 mg tablet Take 1 tablet by mouth once daily. - busPIRone (BUSPAR) 15 mg tablet Take 1 tablet by mouth three times daily. - midodrine (PROAMITINE) 5 mg tablet Take 1 tablet by mouth three times daily. - diphenoxylate-atropine (LOMOTIL) 2.5-0.025 mg per tablet Take 1 tablet by mouth four times daily as needed for up to 30 days. - albuterol HFA (PROVENTIL HFA, VENTOLIN HFA) 90 mcg/actuation inhaler Inhale 2 Puffs as instructed every 6 hours as needed. - hydrOXYzine pamoate (VISTARIL) 25 mg capsule Take 1 capsule by mouth three times daily as needed. - SUMAtriptan (IMITREX) 50 mg tablet Take 1 tablet by mouth as directed. TAKE AT ONSET OF MIGRAINE. MAY REPEAT X 1 IF NEEDED. - fluticasone (FLONASE) 50 mcg/actuation nasal spray Use 2 Sprays in each nostril once daily. Rinse mouth after use. Facility-Administered Medications as of 03/27/2022 Medication Dose Route Frequency - lactated ringers iv infusion 75 mL/hr INTRAVENOUS CONTINUOUS I have interviewed and examined the patient. I have reviewed the medical record and/or the pre-anesthesia evaluation, pertinent labs, and test results. This contains updated information obtained within 48 hours of Surgery/Procedure. SIGNATURE: Arinaa Ward MD PATIENT NAME: Amilcar Odonnell DATE: March 27, 2022 TIME: 11:23 AM CSN: [id number] [facility] BRIEF OP NOTon 03-27-2022 BRIEF OP NOT HNO ID: [id number] Author: Valeria Gordon MD Service: General Surgery Author Type: Physician Type: Brief Op Note Filed: 03/27/2022 12:09 PM Note Text: BRIEF OPERATIVE NOTE SURGERY DATE: 03/27/2022 Incision/Procedure Start Time: 11:35 cecal intubation time: 11:52 Incision Close/Procedure End Time: 12:04 Surgeon(s)/Proceduralist(s) and Agricultural Technical Officer(s): Evan Procedures: EGD with biopsies Colonoscopy with biopsies Anesthesia: MAC Findings: normal EGD except small hiatal hernia with sliding component, hemorrhoids Estimated Blood Loss: minimal Specimens: mucosal biopsies of the following - second portion of duodenum, antrum of stomach, GE junction, random colon (entire) Complications: None Preop Diagnosis: diarrhea, nausea Postop Diagnosis: same, diarrhea, nausea SIGNATURE: Valeria Gordon MD PATIENT NAME: Amilcar Odonnell DATE: March 27, 2022 TIME: 12:06 PM Acct: [id number] [facility] HISTORY PHYSICALon HISTORY PHYSICAL HNO ID: [id number] Author: Valeria Gordon MD Service: General Surgery Author Type: Physician Type: HANDP Filed: 03/27/2022 11:16 AM Note Text: HISTORY AND PHYSICAL Amilcar Odonnell 1995 REFERRING PHYSICIAN: Annabella Neff PA-C CHIEF COMPLAINT: No chief complaint on [...] Procedure Laterality Date PAST SURGICAL HISTORY OF TANDA Current Outpatient Medications Medication Sig FLUoxetine (PROZAC) [...] ALLERGIES: Environmental: Cats. Dogs, Horses [Other]; Rondec [Brompheniramine-Pseudoephed rin]; and Sympathomimetic Agents PERSONAL HISTORY: Social History [...] Blood pressure 127/80, pulse 76, temperature 36.6 ?C (97.9 ?F), temperature source Temporal, resp. rate 13, height 175.3 cm (5' 9), weight 89.8 kg (198 lb), SpO2 97 %. Body mass index is 29.24 kg/m?. General - WD/WN WM in no apparent [...] appropriate Impression: diarrhea, nausea, crampy abdominal pain Discussion/Plan/Recommendati ons: I have discussed the above with the [...] I have answered all questions to the patient?s satisfaction and the patient has no further questions. _ Valeria Gordon MD Normal [facility] SURGICAL PATHOLOGYon 023 CASE REPORT Normal [facility] Comment on above: Order Comment: Speci men Type: TISSUE SPECIMEN Ordering Facility: [facility] Address: [address] [place] [phone] Result Comment: Surg ica Pathology Report Case: [id number] Authorizing Provider: Valeria Gordon MD Collected: 03/27/2022 11:39 AM Ordering Location: [facility] SURGERY Received: 03/28/2022 10:22 AM Pathologist: Delfin Conrad MD Specimens: A) - DUODENUM BIOPSY, 2nd portion B) - ANTRUM (STOMACH) BIOPSY C) - ESOPHAGOGASTRIC JUNCTION BIOPSY D) - COLON BIOPSY, random mucosal Performed By: #### S #### [facility] CLIA [id number] [address] [place] [address] FINAL DIAGNOSIS Normal [facility] Comment on above: Order Comment: Speci men Type: TISSUE SPECIMEN Ordering Facility: [facility] Address: [address] [place] [address] Result Comment: A. D uodenum, second portion, biopsy: - Duodenal mucosa with no significant histopathologic changes. B. Stomach, antrum, biopsy: - Mild chronic gastritis. C. Esophagogastric junction, biopsy: - Squamous mucosa with features suggestive of reflux esophagitis. D. Colon, random biopsy: - Colonic mucosa with no significant histopathologic changes. Performed By: #### S #### [facility] CLIA [id number] [address] [place] [address] FINAL PERFORMING LAB Normal [facility] Comment on above: Order Comment: Speci men Type: TISSUE SPECIMEN Ordering Facility: [facility] Address: [address] [place] [address] Result Comment: Diag nostic interpretation performed at [facility], [address] [place] [address] CLIA# [id number] Toll Ticket Clerk: Jose Collado M.D. Performed By: #### S #### [facility] CLIA [id number] [address] GROSS DESCRIPTION Normal [facility] Comment on above: Order Comment: Speci men Type: TISSUE SPECIMEN Ordering Facility: [facility] Address: [address] [place] [address] Result Comment: A. D UODENUM BIOPSY A. Received in formalin labeled duodenum biopsy second portion are multiple us soft segments of tissue aggregating to 0.5 x 0.3 x 0.1 cm. The specimens are totally submitted in formalin in 1 cassette. B. ANTRUM (STOMACH) BIOPSY B. Received in formalin labeled antrum stomach biopsy are multiple us soft segments of tissue aggregating to 0.3 x 0.2 x 0.1 cm. The specimens are totally submitted in formalin in one cassette. C. ESOPHAGOGASTRIC JUNCTION BIOPSY C. Received in formalin labeled esophagogastric junction biopsy are multiple white soft segments of tissue aggregating to 0.4 x 0.3 x 0.1 cm. The specimens are totally submitted in formalin in 1 cassette. D. COLON BIOPSY D. Received in formalin labeled random colon mucosal biopsy are multiple us soft segments of tissue aggregating to 0.9 x 0.5 x 0.1 cm. The specimens are totally submitted in formalin in 1 cassette. Gross examination performed at [facility], [address] [place] [address] KVB March 28, 2022 11:03 AM Performed By: #### S #### [facility] CLIA [id number] [address] OF [place] XR Hand - right PA and Later al and Obliqueon 07-30-2020 IMPRESSION: Negative Intervention Specialist: PSCB Transcribe Date/Time: Jul 30 2020 3:28P Dictated by : MATTI BENAVIDES MD This examination was interpreted and the report reviewed and electronically signed by: MATTI BENAVIDES MD on Jul 30 2020 3:29PM [facility] DIVISION OF RADIOLOGY * * *Final Report* * * DATE OF EXAM: Jul 30 2020 3:23PM [id number] - XR HAND 3V PA/LAT/OBL RT / PROCEDURE REASON: Hand pain, right * * * * Physician Interpretation * * * * PROCEDURE: Right hand INDICATION: Hand pain, right .pt states punched a wall 2 days ago pain in distal 3rd MC TECHNIQUE: XR HAND 3V PA/LAT/OBL RT COMPARISON: None FINDINGS: No fractures or dislocations are seen. The bones, joint spaces and soft tissues are unremarkable. DIVISION OF RADIOLOGY Provider, [facility] - 07/30/2020 * * *Final Report* * * DATE OF EXAM: Jul 30 2020 3:23PM WOX [id number] - XR HAND 3V PA/LAT/OBL RT / PROCEDURE REASON: Hand pain, right * * * * Physician Interpretation * * * * PROCEDURE: Right hand INDICATION: Hand pain, right .pt states punched a wall 2 days ago pain in distal 3rd MC TECHNIQUE: XR HAND 3V PA/LAT/OBL RT COMPARISON: None FINDINGS: No fractures or dislocations are seen. The bones, joint spaces and soft tissues are unremarkable. IMPRESSION IMPRESSION: Negative Intervention Specialist: PSCB Transcribe Date/Time: Jul 30 2020 3:28P Dictated by : MATTI BENAVIDES MD This examination was interpreted and the report reviewed and electronically signed by: MATTI BENAVIDES MD on Jul 30 2020 3:29PM EST [facility] Radiology Study observation (narrative) [facility] XR Hand - right PA and Later al and ObliqueOrdered By: Ccf Provider on 07-30-2020 [facility] Office Visit: Physicalon Fall risk assessment No [facility] Work Phone: [phone] Protein mass conc Done [facility] Work Phone: [phone] Tobacco smoking status NHIS Never [facility] Work Phone: [phone] Tobacco smoking status WIIS Never smoker [facility] Work Phone: [phone] Vital Signs Date Time Vital Sign Value Performing Clinician Facility 06-21-2024 10:02-0400 Body mass index (BMI) [Ratio] 26.94 kg/m2 Yosef Resendez MD Work Phone: [facility] 06-21-2024 10:02-0400 Body weight 90.1 kg Yosef Resendez MD Work Phone: [facility] 06-21-2024 10:02-0400 Diastolic blood pressure 72 mm[Hg] Yosef Resendez MD Work Phone: [facility] 06-21-2024 10:02-0400 Heart rate 76 /min Yosef Resendez MD Work Phone: [facility] 06-21-2024 10:02-0400 Respiratory rate 16 /min Yosef Resendez MD Work Phone: [facility] 06-21-2024 10:02-0400 Systolic blood pressure 110 mm[Hg] Yosef Resendez MD Work Phone: [facility] 04-11-2024 11:17-0500 Body mass index (BMI) [Ratio] 26.72 kg/m2 Anirudh Paige APRN.FRUIT DUMPER Work Phone: [facility] 04-11-2024 11:17-0500 Body temperature 98.2 [degF] Anirudh Paige BOILER ERECTOR.FRUIT DUMPER Work Phone: [facility] 04-11-2024 11:17-0500 Body weight 89.36 kg Anirudh Paige APRN.FRUIT DUMPER Work Phone: [facility] 04-11-2024 11:17-0500 Diastolic blood pressure 95 mm[Hg] Anirudh Paige APRN.FRUIT DUMPER Work Phone: [facility] 04-11-2024 11:17-0500 Heart rate 92 /min Anirudh Paige APRN.FRUIT DUMPER Work Phone: [facility] 04-11-2024 11:17-0500 Respiratory rate 18 /min Anirudh Paige APRN.FRUIT DUMPER Work Phone: [facility] 04-11-2024 11:17-0500 SaO2% (BldA) [Mass fraction] 98 % Anirudh Paige APRN.FRUIT DUMPER Work Phone: [facility] 04-11-2024 11:17-0500 Systolic blood pressure 131 mm[Hg] Anirudh Paige APRN.FRUIT DUMPER Work Phone: [facility] 04-09-2024 13:30-0500 Body mass index (BMI) [Ratio] 26.46 kg/m2 Michela Weeks APRN.FRUIT DUMPER Work Phone: [facility] 04-09-2024 13:30-0500 Body temperature 98.1 [degF] Michela Weeks APRN.FRUIT DUMPER Work Phone: [facility] 01-18-2025 13:30-0500 Body weight 88.5 kg Michela Praisler-Wood BOILER ERECTOR.FRUIT DUMPER Work Phone: [facility] 04-09-2024 13:30-0500 Diastolic blood pressure 94 mm[Hg] Michela Praisler-Wood BOILER ERECTOR.FRUIT DUMPER Work Phone: [facility] 04-09-2024 13:30-0500 Heart rate 94 /min Michela Praisler-Wood BOILER ERECTOR.FRUIT DUMPER Work Phone: [facility] 04-09-2024 13:30-0500 Respiratory rate 16 /min Michela Praisler-Wood BOILER ERECTOR.FRUIT DUMPER Work Phone: [facility] 04-09-2024 13:30-0500 SaO2% (BldA) [Mass fraction] 97 % Michela Praisler-Wood BOILER ERECTOR.FRUIT DUMPER Work Phone: [facility] 04-09-2024 13:30-0500 Systolic blood pressure 139 mm[Hg] Michela Praisler-Wood BOILER ERECTOR.FRUIT DUMPER Work Phone: [facility] 02-29-2024 12:52-0500 Body height 182.9 cm Ligia Tannhof BOILER ERECTOR.FRUIT DUMPER Work Phone: [facility] 02-29-2024 12:52-0500 Body mass index (BMI) [Ratio] 25.77 kg/m2 Ligia Tannhof BOILER ERECTOR.FRUIT DUMPER Work Phone: [facility] 02-29-2024 12:52-0500 Body weight 86.18 kg Ligia Tannhof BOILER ERECTOR.FRUIT DUMPER Work Phone: [facility] 02-29-2024 12:52-0500 Diastolic blood pressure 75 mm[Hg] Ligia Tannhof BOILER ERECTOR.FRUIT DUMPER Work Phone: [facility] 02-29-2024 12:52-0500 Heart rate 105 /min Ligia Tannhof BOILER ERECTOR.FRUIT DUMPER Work Phone: [facility] 02-29-2024 12:52-0500 Systolic blood pressure 120 mm[Hg] Ligia Tannhof BOILER ERECTOR.FRUIT DUMPER Work Phone: [facility] 02-23-2024 15:16-0500 Body mass index (BMI) [Ratio] 25.89 kg/m2 Yosef Resendez MD Work Phone: [facility] 02-23-2024 15:16-0500 Body temperature 97.9 [degF] Yosef Resendez MD Work Phone: [facility] 02-23-2024 15:16-0500 Body weight 86.6 kg oYsef Resendez MD Work Phone: [facility] 02-23-2024 15:16-0500 Diastolic blood pressure 74 mm[Hg] Yosef Resendez MD Work Phone: [facility] 02-23-2024 15:16-0500 Heart rate 88 /min Yosef Resendez MD Work Phone: [facility] 02-23-2024 15:16-0500 Respiratory rate 16 /min Yosef Resendez MD Work Phone: [facility] 02-23-2024 15:16-0500 Systolic blood pressure 120 mm[Hg] Yosef Resendez MD Work Phone: [facility] 02-21-2024 11:47-0500 Body mass index (BMI) [Ratio] 25.68 kg/m2 Michela Praisler-Wood BOILER ERECTOR.FRUIT DUMPER Work Phone: [facility] 02-21-2024 11:47-0500 Body temperature 97.9 [degF] Michela Praisler-Wood BOILER ERECTOR.FRUIT DUMPER Work Phone: [facility] 02-21-2024 11:47-0500 Body weight 85.9 kg Michela Praisler-Wood BOILER ERECTOR.FRUIT DUMPER Work Phone: [facility] 02-21-2024 11:47-0500 Diastolic blood pressure 72 mm[Hg] Michela Praisler-Wood BOILER ERECTOR.FRUIT DUMPER Work Phone: [facility] 02-21-2024 11:47-0500 Heart rate 103 /min Michela Praisler-Wood BOILER ERECTOR.FRUIT DUMPER Work Phone: [facility] 02-21-2024 11:47-0500 Respiratory rate 16 /min Michela Praisler-Wood BOILER ERECTOR.FRUIT DUMPER Work Phone: [facility] 02-21-2024 11:47-0500 SaO2% (BldA) [Mass fraction] 97 % Michela Praisler-Wood BOILER ERECTOR.FRUIT DUMPER Work Phone: [facility] 02-21-2024 11:47-0500 Systolic blood pressure 120 mm[Hg] Michela Praisler-Wood BOILER ERECTOR.FRUIT DUMPER Work Phone: [facility] 11-23-2023 11:36-0400 Body mass index (BMI) [Ratio] 24.46 kg/m2 Padmini Wormald PA-C Work Phone: [facility] 11-23-2023 11:36-0400 Body temperature 97.39 [degF] Padmini Wormald PA-C Work Phone: [facility] 11-23-2023 11:36-0400 Body weight 81.8 kg Padmini Wormald PA-C Work Phone: [facility] 11-23-2023 11:36-0400 Diastolic blood pressure 68 mm[Hg] Padmini Wormald PA-C Work Phone: [facility] 11-23-2023 11:36-0400 Heart rate 96 /min Padmini Wormald PA-C Work Phone: [facility] 11-23-2023 11:36-0400 Respiratory rate 16 /min Padmini Wormald PA-C Work Phone: [facility] 11-23-2023 11:36-0400 SaO2% (BldA) [Mass fraction] 98 % Padmini Wormald PA-C Work Phone: [facility] 11-23-2023 11:36-0400 Systolic blood pressure 126 mm[Hg] Padmini Wormald PA-C Work Phone: [facility] 06-15-2023 14:54-0400 Diastolic blood pressure 64 mm[Hg] Quyen Martinez MD Work Phone: [facility] 06-15-2023 14:54-0400 Heart rate 59 /min Quyen Martinez MD Work Phone: [facility] 06-15-2023 14:54-0400 Respiratory rate 20 /min Quyen Martinez MD Work Phone: [facility] 06-15-2023 14:54-0400 SaO2% (BldA) [Mass fraction] 99 % Quyen Martinez MD Work Phone: [facility] 06-15-2023 14:54-0400 Systolic blood pressure 109 mm[Hg] Quyen Martinez MD Work Phone: [facility] 06-15-2023 14:31-0400 Body temperature 97.59 [degF] Quyen Martinez MD Work Phone: [facility] 06-15-2023 13:50-0400 Body height 182.9 cm Quyen Martinez MD Work Phone: [facility] 06-15-2023 13:50-0400 Body mass index (BMI) [Ratio] 25.77 kg/m2 Quyen Martinez MD Work Phone: [facility] 06-15-2023 13:50-0400 Body weight 86.18 kg Quyen Martinez MD Work Phone: [facility] 05-25-2023 08:43-0500 Diastolic blood pressure 56 mm[Hg] Alvaro Hale MD Work Phone: [facility] 05-25-2023 08:43-0500 Heart rate 63 /min Alvaro Hale MD Work Phone: [facility] 05-25-2023 08:43-0500 Respiratory rate 16 /min Alvaro Hale MD Work Phone: [facility] 05-25-2023 08:43-0500 SaO2% (BldA) [Mass fraction] 99 % Alvaro Hale MD Work Phone: [facility] 05-25-2023 08:43-0500 Systolic blood pressure 100 mm[Hg] Alvaro Hale MD Work Phone: [facility] 05-25-2023 08:28-0500 Body temperature 97 [degF] Alvaro Hale MD Work Phone: [facility] 05-25-2023 07:37-0500 Body height 182.9 cm Alvaro Hale MD Work Phone: [facility] 05-25-2023 07:37-0500 Body mass index (BMI) [Ratio] 27.12 kg/m2 Alvaro Hale MD Work Phone: [facility] 05-25-2023 07:37-0500 Body weight 90.72 kg Alvaro Hale MD Work Phone: [facility] 05-11-2023 10:15-0500 Body weight 84.82 kg Ligia Kuhn BOILER ERECTOR.FRUIT DUMPER Work Phone: [facility] 05-11-2023 10:15-0500 Diastolic blood pressure 84 mm[Hg] Ligia Caif BOILER ERECTOR.FRUIT DUMPER Work Phone: [facility] 05-11-2023 10:15-0500 Heart rate 91 /min Ligia Arnoldhof BOILER ERECTOR.FRUIT DUMPER Work Phone: [facility] 05-11-2023 10:15-0500 Respiratory rate 16 /min Ligia Arnoldhof BOILER ERECTOR.FRUIT DUMPER Work Phone: [facility] 05-11-2023 10:15-0500 SaO2% (BldA) [Mass fraction] 96 % Ligia Arnoldhof BOILER ERECTOR.FRUIT DUMPER Work Phone: [facility] 05-11-2023 10:15-0500 Systolic blood pressure 110 mm[Hg] Ligia Arnoldhof BOILER ERECTOR.FRUIT DUMPER Work Phone: [facility] 05-05-2023 14:59-0500 Body height 175.3 cm Ana Kalka PA-C Work Phone: [facility] 05-05-2023 14:59-0500 Body weight 84.82 kg Ana Kalka PA-C Work Phone: [facility] 05-05-2023 14:59-0500 Diastolic blood pressure 78 mm[Hg] Ana Kalka PA-C Work Phone: [facility] 05-05-2023 14:59-0500 Heart rate 93 /min Ana Kalka PA-C Work Phone: [facility] 05-05-2023 14:59-0500 Systolic blood pressure 120 mm[Hg] Ana Kalka PA-C Work Phone: [facility] 09-30-2022 17:23-0400 Body temperature 98.2 [degF] Krislyn Aberegg PA Work Phone: [facility] 09-30-2022 17:23-0400 Body weight 91.99 kg Krislyn Aberegg PA Work Phone: [facility] 09-30-2022 17:23-0400 Diastolic blood pressure 90 mm[Hg] Krislyn Aberegg PA Work Phone: [facility] 09-30-2022 17:23-0400 Heart rate 80 /min Krislyn Aberegg PA Work Phone: [facility] 09-30-2022 17:23-0400 Respiratory rate 18 /min Krislyn Aberegg PA Work Phone: [facility] 09-30-2022 17:23-0400 SaO2% (BldA) [Mass fraction] 97 % Krislyn Aberegg PA Work Phone: [facility] 09-30-2022 17:23-0400 Systolic blood pressure 138 mm[Hg] Krislyn Aberegg PA Work Phone: [facility] 06-22-2022 09:13-0400 Body temperature 98.29 [degF] [facility] BOILER ERECTOR.FRUIT DUMPER Work Phone: [facility] 06-22-2022 09:13-0400 Body weight 88.91 kg [facility] BOILER ERECTOR.FRUIT DUMPER Work Phone: [facility] 06-22-2022 09:13-0400 Diastolic blood pressure 82 mm[Hg] [facility] E[facility].FRUIT DUMPER Work Phone: [facility] 06-22-2022 09:13-0400 Heart rate 109 /min [facility] BOIL[facility] ERECT[facility].FRUIT DUMPER Work Phone: [facility] 06-22-2022 09:13-0400 Respiratory rate 16 /min [facility] BOILER ERECTOR.FRUIT DUMPER Work Phone: [facility] 06-22-2022 09:13-0400 SaO2% (BldA) [Mass fraction] 97 % [facility] BOILER ERECTOR.FRUIT DUMPER Work Phone: [facility] 06-22-2022 09:13-0400 Systolic blood pressure 126 mm[Hg] [facility] BOILER ERECTOR.FRUIT DUMPER Work Phone: [facility] 03-27-2022 12:30-0500 Diastolic blood pressure 75 mm[Hg] Valeria Gordon MD Work Phone: [facility] 03-27-2022 12:30-0500 Heart rate 79 /min Valeria Gordon MD Work Phone: [facility] 03-27-2022 12:30-0500 Respiratory rate 15 /min Valeria Gordon MD Work Phone: [facility] 03-27-2022 12:30-0500 SaO2% (BldA) [Mass fraction] 99 % Valeria Gordon MD Work Phone: [facility] 03-27-2022 12:30-0500 Systolic blood pressure 120 mm[Hg] Valeria Gordon MD Work Phone: [facility] 03-27-2022 12:09-0500 Body temperature 97.5 [degF] Valeria Gordon MD Work Phone: [facility] 03-27-2022 10:30-0500 Body height 175.3 cm Vaelria Gordon MD Work Phone: [facility] 03-27-2022 10:30-0500 Body weight 89.81 kg Valeria Gordon MD Work Phone: [facility] 03-19-2022 13:26-0500 Body height 175.3 cm Annabella [place] PA-C Work Phone: [facility] 03-19-2022 13:-0500 Body temperature 98.29 [degF] Annabella [place] PA-C Work Phone: [facility] 03-19-2022 13:26-0500 Body weight 89.81 kg Annabella Edison PA-C Work Phone: [facility] 03-19-2022 13:26-0500 Diastolic blood pressure 70 mm[Hg] Annabella Edison PA-C Work Phone: [facility] 03-19-2022 13:26-0500 Heart rate 116 /min Annabella [place] PA-C Work Phone: [facility] 03-19-2022 13:26-0500 Respiratory rate 14 /min Annabella [place] PA-C Work Phone: [facility] 03-19-2022 13:26-0500 SaO2% (BldA) [Mass fraction] 95 % Annabella [place] PA-C Work Phone: [facility] 03-19-2022 13:26-0500 Systolic blood pressure 128 mm[Hg] Annabella Edison PA-C Work Phone: [facility] 02-10-2022 14:27-0500 Body weight 88.27 kg Yosef Resendez MD Work Phone: [facility] 02-10-2022 14:27-0500 Diastolic blood pressure 80 mm[Hg] Yosef Resendez MD Work Phone: [facility] 02-10-2022 14:27-0500 Heart rate 88 /min Yosfe Resendez MD Work Phone: [facility] 02-10-2022 14:27-0500 Respiratory rate 16 /min Yosef Resendez MD Work Phone: [facility] 02-10-2022 14:27-0500 Systolic blood pressure 104 mm[Hg] Yosef Resendez MD Work Phone: [facility] 11-05-2021 10:47-0400 Body weight 83.96 kg Yosef Resendez MD Work Phone: [facility] 11-05-2021 10:47-0400 Diastolic blood pressure 80 mm[Hg] Yosef Resendez MD Work Phone: [facility] 11-05-2021 10:47-0400 Heart rate 84 /min Yosef Resendez MD Work Phone: [facility] 11-05-2021 10:47-0400 Respiratory rate 16 /min Yosef Resendez MD Work Phone: [facility] 11-05-2021 10:47-0400 Systolic blood pressure 122 mm[Hg] Yosef Resendez MD Work Phone: [facility] 10-08-2021 12:02-0400 Body temperature 98.29 [degF] Capo P[place]lebury BOILER ERECTOR.FRUIT DUMPER Work Phone: [facility] 10-08-2021 12:02-0400 Body weight 83.01 kg Capo [place] BOILER ERECTOR.FRUIT DUMPER Work Phone: [facility] 10-08-2021 12:02-0400 Diastolic blood pressure 80 mm[Hg] Capo [place] BOILER ERECTOR.FRUIT DUMPER Work Phone: [facility] 10-08-2021 12:02-0400 Heart rate 92 /min Capo [place] BOILER ERECTOR.FRUIT DUMPER Work Phone: [facility] 10-08-2021 12:02-0400 Respiratory rate 16 /min Capo [place] BOILER ERECTOR.FRUIT DUMPER Work Phone: [facility] 10-08-2021 12:02-0400 SaO2% (BldA) [Mass fraction] 98 % Capo Skinner APRN.FRUIT DUMPER Work Phone: [facility] 10-08-2021 12:02-0400 Systolic blood pressure 122 mm[Hg] Capo Skinner APRN.FRUIT DUMPER Work Phone: [facility] 09-22-2021 11:35-0400 Body temperature 98.01 [degF] Cee Ewing APRN.FRUIT DUMPER Work Phone: [facility] 09-22-2021 11:35-0400 Body weight 83.01 kg Cee Ewing APRN.FRUIT DUMPER Work Phone: [facility] 09-22-2021 11:35-0400 Diastolic blood pressure 90 mm[Hg] Cee Ewing APRN.FRUIT DUMPER Work Phone: [facility] 09-22-2021 11:35-0400 Heart rate 99 /min Cee Ewing APRN.FRUIT DUMPER Work Phone: [facility] 09-22-2021 11:35-0400 Respiratory rate 16 /min Cee Ewing APRN.FRUIT DUMPER Work Phone: [facility] 09-22-2021 11:35-0400 SaO2% (BldA) [Mass fraction] 98 % Cee Ewing APRN.FRUIT DUMPER Work Phone: [facility] 09-22-2021 11:35-0400 Systolic blood pressure 138 mm[Hg] Cee Ewing APRN.FRUIT DUMPER Work Phone: [facility] 08-23-2021 09:09-0400 Body weight 80.29 kg Yosef Resendez MD Work Phone: [facility] 08-23-2021 09:09-0400 Diastolic blood pressure 70 mm[Hg] Yosef Resendez MD Work Phone: [facility] 08-23-2021 09:09-0400 Heart rate 86 /min Yosef Resendez MD Work Phone: [facility] 08-23-2021 09:09-0400 Respiratory rate 14 /min Yosef Resendez MD Work Phone: [facility] 08-23-2021 09:09-0400 Systolic blood pressure 114 mm[Hg] Yosef Resendez MD Work Phone: [facility] 07-30-2021 11:13-0400 Body weight 79.38 kg Yosef Resendez MD Work Phone: [facility] 07-30-2021 11:13-0400 Diastolic blood pressure 80 mm[Hg] Yosef Resendez MD Work Phone: [facility] 07-30-2021 11:13-0400 Heart rate 76 /min Yosef Resendez MD Work Phone: [facility] 07-30-2021 11:13-0400 Respiratory rate 16 /min Yosef Resendez MD Work Phone: [facility] 07-30-2021 11:13-0400 Systolic blood pressure 118 mm[Hg] Yosef Resendez MD Work Phone: [facility] 07-02-2021 10:07-0400 Body weight 77.7 kg Yosef Resendez MD Work Phone: [facility] 07-02-2021 10:07-0400 Diastolic blood pressure 68 mm[Hg] Yosef Resendez MD Work Phone: [facility] 07-02-2021 10:07-0400 Heart rate 78 /min Yosef Resendez MD Work Phone: [facility] 07-02-2021 10:07-0400 Respiratory rate 16 /min Yosef Resendez MD Work Phone: [facility] 07-02-2021 10:07-0400 Systolic blood pressure 112 mm[Hg] Yosef Resendez MD Work Phone: [facility] 10-03-2016 14:00-0400 BMI (Body Mass Index) 20.23 kg/m2 [facility] Work Phone: 10-03-2016 14:00-0400 Body Temperature 97.3 [degF] Yosef Kaplan SOLE LEVELER MACHINE-C [facility] Work Phone: 10-03-2016 14:00-0400 BP Diastolic 60 mm[Hg] Yosef Kaplan SOLE LEVELER MACHINE-C [facility] Work Phone: 10-03-2016 14:00-0400 BP Systolic 126 mm[Hg] Yosef Kaplan SOLE LEVELER MACHINE-C [facility] Work Phone: 10-03-2016 14:00-0400 Height 175.26 cm Yosef Kaplan SOLE LEVELER MACHINE-C [facility] Work Phone: 10-03-2016 14:00-0400 Pulse (Heart Rate) 76 /min Yosef Kaplan SOLE LEVELER MACHINE-C [facility] Work Phone: 10-03-2016 14:00-0400 Respiratory Rate 16 /min Yosef Kaplan SOLE LEVELER MACHINE-C [facility] Work Phone: 10-03-2016 14:00-0400 Weight 62.14 kg Yosef Kaplan SOLE LEVELER MACHINE-C [facility] Work Phone: Encounters Encounter Date Encounter Type Care Provider Facility Start: 08-29-2024 End: 08-29-2024 Refill Isha Beckett APRN.CNP Work Phone: Psychiatry Comment on above: Refill Request Start: 07-25-2024 End: 07-25-2024 Refill Yosef Resendez MD Work Phone: [address] [place] [address] Comment on above: Refill Request Start: 07-18-2024 End: 07-18-2024 ambulatory YOSEF RESENDEZ Facility:[facility] Start: 07-07-2024 End: 07-08-2024 Telephone encounter Yosef Resendez MD Work Phone: [facility] [place] Comment on above: Forms ([employer] Technician stephanie guillory) Start: 06-27-2024 End: 07-01-2024 Follow-up encounter Yosef Resendez MD Work Phone: [facility] Start: 06-21-2024 End: 06-21-2024 Subsequent hospital visit by physician Car [facility] Work Phone: Radiology Comment on above: Left hip pain [M25.5 52] Start: 06-21-2024 End: 06-21-2024 ambulatory [facility] Facility:[facility] Start: 06-21-2024 End: 06-21-2024 Office outpatient visit 15 minutes Yosef Resendez MD Work Phone: [facility] [place] Comment on above: Left hip pain (Prima ry Dx); Chronic pain of left knee Start: 06-20-2024 End: 06-20-2024 [facility] Facility:[facility] Start: 06-20-2024 End: 06-20-[address] [facility] Isha Beckett APRN.FRUIT DUMPER Work Phone: Psychiatry Comment on above: Recurrent major depr essive disorder, in partial remission (Primary Dx); CHARLES (generalized anxiety disorder); Encounter for long-term (current) use of medications; Psychosocial stressors; History of ADHD Start: 05-23-2024 End: 05-23-2024 Follow-up encounter Isha Beckett APRN.FRUIT DUMPER Work Phone: Psychiatry Start: 05-23-2024 End: 05-23-2024 [facility] Facility:[facility] Start: 05-20-2024 End: 05-20-2024 Emergency department patient visit [facility] Facility:[facility] Start: 05-16-2024 End: 05-16-2024 ambulatory [facility] Facility:[facility] Start: 05-16-2024 End: 05-16-[address] [facility] Isha Beckett BOILER ERECTOR.FRUIT DUMPER Work Phone: Psychiatry Comment on above: Recurrent major depr essive disorder, in partial remission (HCC) (Primary Dx); CHARLES (generalized anxiety disorder); Encounter for long-term (current) use of medications; Vitamin D deficiency; Psychosocial stressors; Elevated liver enzymes; Elevated fasting lipid profile Start: 05-04-2024 End: 05-05-2024 Refill Yosef Resendez MD Work Phone: [facility] [place] Comment on above: Refill Request Start: 04-25-2024 End: 04-25-2024 [facility] Facility:[facility] Start: 04-25-2024 End: 04-25-[address] [facility] Isha Beckett APRN.FRUIT DUMPER Work Phone: Psychiatry Comment on above: Encounter for long-t erm (current) use of medications (Primary Dx); Major depressive disorder, recurrent episode, moderate (HCC); CHARLES (generalized anxiety disorder); Vitamin D deficiency; Grief reaction; Psychosocial stressors; Elevated liver enzymes; Elevated fasting lipid profile Start: 04-11-2024 End: 04-11-2024 Office outpatient visit 15 minutes Anirudh Paige APRN.FRUIT DUMPER Work Phone: [facility] [place] Comment on above: Norovirus (Primary D x); Nausea vomiting and diarrhea Start: 04-11-2024 End: 04-11-2024 [facility] Facility:[facility] Start: 04-09-2024 End: 04-09-2024 [facility] Facility:[facility] Start: 04-09-2024 End: 04-09-2024 Office outpatient visit 15 minutes Michela Weeks APRN.FRUIT DUMPER [facility] Phone[facility] Comment on above: Viral URI with cough (Primary Dx); Bilateral impacted cerumen Start: 02-29-2024 End: 02-29-2024 E-mail encounter from caregiver Phuong Ewing MA [facility] [place] Start: 02-29-2024 End: 02-29-2024 Patient encounter procedure Phuong Ewing MA [facility] [place] Comment on above: Appointment Bacterial sinusitis (Primary Dx); Bronchitis; Bilateral impacted cerumen Start: 02-29-2024 End: 02-29-2024 [facility] Facility:[facility] Start: 02-26-2024 End: 02-26-2024 Telephone encounter Yosef Resendez MD Work Phone: [facility] [place] Comment on above: Letter Start: 02-26-2024 End: 02-26-2024 [facility] Facility:[facility] Start: 02-23-2024 End: 02-23-2024 [facility] Facility:[facility] Start: 02-23-2024 End: 02-23-2024 Patient encounter procedure Yosef Resendez MD Work Phone: [facility] [place] Comment on above: Bacterial sinusitis (Primary Dx); Bronchitis Start: 02-21-2024 End: 02-21-2024 [facility] Facility:[facility] Start: 02-21-2024 End: 02-21-2024 Patient encounter procedure Michela Weeks APRN.CNP Work Phone: [facility] Comment on above: Viral URI with cough (Primary Dx) Start: 02-15-2024 End: 02-15-2024 [facility] Facility:[facility] Start: 02-15-2024 End: 02-15-[address] [facility] Isha Beckett APRN.FRUIT DUMPER Work Phone: Psychiatry Comment on above: CHARLES (generalized anx iety disorder) (Primary Dx); Encounter for long-term (current) use of medications; Vitamin D deficiency; Recurrent major depressive disorder, in partial remission (HCC); Psychosocial stressors Start: 11-24-2023 End: 11-24-2023 ambulatory Miesha Zhang APRN.FRUIT DUMPER Work Phone: [facility] Comment on above: RESULTS Start: 11-24-2023 End: 11-24-2023 E-mail encounter from caregiver Miesha Zhang APRN.FRUIT DUMPER Work Phone: [facility] Start: 11-23-2023 End: 11-23-2023 [facility] Facility:[facility] Start: 11-23-2023 End: 11-23-2023 Patient encounter procedure Padmini Ambriz PA-C Work Phone: [facility] Comment on above: Suspected COVID-19 v irus infection (Primary Dx); Acute cough; Nasal congestion; Nausea and vomiting, unspecified vomiting type; Exposure to COVID-19 virus Start: 11-19-2023 End: 11-19-[address] [facility] Isha Beckett APRN.FRUIT DUMPER Work Phone: Psychiatry Comment on above: Major depressive dis order, recurrent episode, moderate (HCC) (Primary Dx); CHARLES (generalized anxiety disorder); Vitamin D deficiency; History of ADHD Start: 11-06-2023 Telephone encounter Isha mon APRN.ORI Work Phone: Psychiatry Comment on above: Patient Update Start: 10-30-2023 Refill Ligia Kuhn APRN.FRUIT DUMPER Work Phone: [facility] Comment on above: Refill Request Start: 10-22-2023 End: 10-22-2023 ambulatory Isha Beckett APRN.FRUIT DUMPER Work Phone: Psychiatry Comment on above: future appt Vitamin D deficiency (Primary Dx); CHARLES (generalized anxiety disorder); Recurrent major depressive disorder, in partial remission (HCC) Start: 10-22-2023 E-mail encounter fro m caregiver Isha Beckett APRN.FRUIT DUMPER Work Phone: Psychiatry Start: 10-22-2023 End: 10-22-2023 Telemedicine consultation with patient Isha Sujatha Beckett APRN.FRUIT DUMPER Work Phone: Psychiatry Start: 10-03-2023 Refill Isha iverson APRN.[facility] Work Phone: Psychiatry Comment on above: Refill Request Start: 09-29-2023 Refill Isha iverson APRN.FRUIT DUMPER Work Phone: [facility] Comment on above: Refill Request Start: 2023 End: 2023 Emergency department patient visit Yosef Howeberthoud Facility:[facility] Start: 08-10-2023 Refill Ana Rodriguez PA-C Work Phone: [facility] Comment on above: Refill Request Start: 08-10-2023 Refill Ana Rodriguez PA-C Work Phone: [facility] Comment on above: Refill Request Start: 07-26-2023 [facility]ill [facility]aster [facility] Comment on above: Refill Request Start: 07-07-2023 Telephone encounter Yosef hickey MD Work Phone: [facility] [place] Comment on above: Letter Start: 06-26-2023 End: 06-26-2023 [facility] Isha Beckett BOILER ERECTOR.FRUIT DUMPER Work Phone: Psychiatry Comment on above: Major depressive dis order, recurrent episode, moderate (HCC) (Primary Dx); CHARLES (generalized anxiety disorder) Start: 06-15-2023 End: 06-15-2023 Subsequent hospital visit by physician Quyen Martinez MD Work Phone: Ambulatory Surgery Comment on above: Elevated fecal calpr otectin [R19.5] Start: 06-08-2023 ambulatory Quyen marshall MD Work Phone: Ambulatory Surgery Start: 05-29-2023 End: 05-29-2023 [facility] Isha Beckett BOILER ERECTOR.FRUIT DUMPER Work Phone: Psychiatry Comment on above: CHRALES (generalized anx iety disorder) (Primary Dx); Major depressive disorder, recurrent episode, moderate (HCC); Vitamin D deficiency Start: 05-25-2023 End: 05-25-2023 Subsequent hospital visit by physician Alvaro Hale MD Work Phone: Ambulatory Surgery Comment on above: Gastroesophageal ref lux disease with esophagitis without hemorrhage [K21.00] Start: 05-22-2023 ambulatory Ana Rodriguez PA-C Work Phone: [facility] Comment on above: High Calprotectin Start: 05-20-2023 Telephone encounter Ligia rangel BOILER ERECTOR.FRUIT DUMPER Work Phone: [facility] [place] Comment on above: Results (Stool ) Start: 05-19-2023 End: 05-19-2023 Subsequent hospital visit by physician Gi/Gu 1 [facility] Comment on above: Pharyngeal dysphagia [R13.13] Start: 05-14-2023 End: 05-14-2023 [facility] Isha Beckett APRN.FRUIT DUMPER Work Phone: Psychiatry Comment on above: CHARLES (generalized anx iety disorder) (Primary Dx); Major depressive disorder, recurrent episode, moderate (HCC); Vitamin D deficiency; Psychogenic vomiting with nausea Start: 05-13-2023 Telephone encounter Ligia rangel APRN.FRUIT DUMPER Work Phone: [facility] [place] Comment on above: Results (Labs ) Start: 05-11-2023 End: 05-11-2023 Patient encounter procedure Ligia Kuhn APRN.FRUIT DUMPER Work Phone: [facility] [place] Comment on above: Diarrhea, unspecifie d type (Primary Dx); POTS (postural orthostatic tachycardia syndrome) Start: 05-08-2023 End: 05-08-2023 Patient encounter procedure Isha Beckett APRN.FRUIT DUMPER Work Phone: Psychiatry Comment on above: APPOINTMENT CANCELLE D (Primary Dx) Start: 05-08-2023 End: 05-08-2023 Telemedicine consultation with patient Isha Beckett APRN.FRUIT DUMPER Work Phone: [facility] [place] Start: 05-05-2023 End: 05-05-2023 Patient encounter procedure Ana Rodriguez PA-C Work Phone: [facility] Comment on above: Gastroesophageal ref lux disease with esophagitis without hemorrhage (Primary Dx); Pharyngeal dysphagia; Loose stools Start: 04-29-2023 Refill Isha iverson APRN.FRUIT DUMPER Work Phone: Psychiatry Comment on above: Refill Request Start: 03-06-2023 Refill Isha iverson BOILER ERECTOR.FRUIT DUMPER Work Phone: Psychiatry Comment on above: Refill Request; Refi ll Request Start: 11-25-2022 End: 11-25-2022 [facility] Isha Beckett APRN.FRUIT DUMPER Work Phone: Psychiatry Comment on above: Vitamin D deficiency (Primary Dx); CHARLES (generalized anxiety disorder); Recurrent major depressive disorder, in partial remission (HCC); Malaise and fatigue Start: 10-30-2022 Refill Isha iverson BOILER ERECTOR.FRUIT DUMPER Work Phone: Psychiatry Comment on above: Refill Request Start: 09-30-2022 End: 09-30-2022 Patient encounter procedure Cassie POLK Work Phone: [facility] Comment on above: Strain of thoracic r egion, initial encounter (Primary Dx) Start: 08-04-2022 End: 08-04-2022 [facility] Jostinbridgett MALDONADO.[facility] Work Phone: Psychiatry Comment on above: Vitamin D deficiency (Primary Dx); CHARLES (generalized anxiety disorder); Major depressive disorder, recurrent episode, moderate (HCC); History of ADHD Start: 07-14-2022 End: 07-14-2022 [facility] Beto MALDONADO.[facility] Work Phone: Psychiatry Comment on above: Malaise and fatigue (Primary Dx); CHARLES (generalized anxiety disorder); Major depressive disorder, recurrent episode, moderate (HCC); History of ADHD Start: 06-22-2022 End: 06-22-2022 Office outpatient visit 15 minutes Capo Skinner APRN.[facility] Work Phone: [facility] Comment on above: Viral gastroenteriti s (Primary Dx) Start: 05-26-2022 End: 05-26-2022 [facility] Jostinbridgett MALDONADO.[facility] Work Phone: Psychiatry Comment on above: Malaise and fatigue (Primary Dx); CHARLES (generalized anxiety disorder); Recurrent major depressive disorder, in partial remission (HCC); History of ADHD Start: 04-04-2022 End: 04-04-2022 ambulatory Annabella Neff PA-C Work Phone: General Surgery Comment on above: Chronic superficial gastritis without bleeding (Primary Dx); Hiatal hernia; Gastroesophageal reflux disease with esophagitis without hemorrhage Start: 04-04-2022 End: 04-04-2022 Telemedicine consultation with patient Annabella Neff PA-C Work Phone: [facility] Start: 03-28-2022 Telephone encounter Valeria Ashley MD Work Phone: General Surgery Comment on above: Patient Update (Expe riencing symptoms from colonoscopy) Start: 03-27-2022 ambulatory YOSEF Leyva ity:[facility] Start: 03-27-2022 End: 03-27-2022 Subsequent hospital visit by physician Valeria Gordon MD Work Phone: LD SURGERY Comment on above: Change in bowel habi ts [R19.4] Start: 03-19-2022 End: 03-19-2022 Patient encounter procedure Annabella Neff PA-C Work Phone: General Surgery Comment on above: Diarrhea, unspecifie d type (Primary Dx); Change in bowel habits; Nausea Start: 03-17-2022 Refill Isha iverson BOILER ERECTOR.FRUIT DUMPER Work Phone: Psychiatry Comment on above: Refill Request Start: 02-24-2022 End: 02-24-[address] [facility] Isha Beckett BOILER ERECTOR.FRUIT DUMPER Work Phone: Psychiatry Comment on above: CHARLES (generalized anx iety disorder) (Primary Dx); Recurrent major depressive disorder, in partial remission (HCC); History of ADHD Start: 02-21-2022 Telephone encounter Cesario Garcia MD Work Phone: [facility] [place] Comment on above: Results Start: 02-19-2022 Telephone encounter Cesario Garcia MD Work Phone: [facility] [place] Comment on above: Results Start: 02-17-2022 End: 02-17-2022 ambulatory Cesario Garcia MD Work Phone: [facility] [place] Comment on above: Diarrhea, unspecifie d type (Primary Dx) Start: 02-17-2022 End: 02-17-2022 Telemedicine consultation with patient Cesario Garcia MD Work Phone: [facility] [place] Start: 02-10-2022 End: 02-10-2022 Patient encounter procedure Yosef Resendez MD Work Phone: [facility] [place] Comment on above: Diarrhea, unspecifie d type (Primary Dx); Nausea and vomiting, unspecified vomiting type Start: 01-17-2022 End: 01-17-[address] [facility] Isha Solares Beto BOILER ERECTOR.FRUIT DUMPER Work Phone: Psychiatry Comment on above: CHARLES (generalized anx iety disorder) (Primary Dx); Recurrent major depressive disorder, in partial remission (HCC) Start: 12-09-2021 Refill Isha Solares Usha u BOILER ERECTOR.FRUIT DUMPER Work Phone: Psychiatry Comment on above: Refill Request Start: 11-20-2021 Telephone encounter Avila Villanueva DO Work Phone: Cardiology Comment on above: Received Outside [facility] Records (Records - [facility]) Start: 11-11-2021 End: 11-11-[address] [facility] Isha Solares Beto BOILER ERECTOR.FRUIT DUMPER Work Phone: Psychiatry Comment on above: CHARLES (generalized anx iety disorder) (Primary Dx); Recurrent major depressive disorder, in partial remission (HCC); History of ADHD Start: 11-10-2021 Refill Yosef lancaster MD Work Phone: [facility] Comment on above: Refill Request Start: 11-05-2021 End: 11-05-2021 Patient encounter procedure Yosef Resendez MD Work Phone: [facility] Comment on above: POTS (postural ortho static tachycardia syndrome) (Primary Dx); Anxiety and depression Start: 10-22-2021 Refill Yosef lancaster MD Work Phone: [facility] Comment on above: Refill Request Start: 10-14-2021 End: 10-14-[address] [facility] Isha Beckett BOILER ERECTOR.FRUIT DUMPER Work Phone: Psychiatry Comment on above: Major depressive dis order, recurrent episode, moderate (HCC) (Primary Dx); CHARLES (generalized anxiety disorder); History of ADHD Start: 10-08-2021 End: 10-08-2021 Patient encounter procedure Capo Skinner BOILER ERECTOR.FRUIT DUMPER Work Phone: [facility] Comment on above: Suspected COVID-19 v irus infection (Primary Dx) Start: 09-25-2021 Telephone encounter Yosef hickey MD Work Phone: [facility] [place] Comment on above: Letter (For Service Dog) Start: 09-22-2021 End: 09-22-2021 Patient encounter procedure Cee Ewing FRUIT DUMPER Work Phone: [facility] Comment on above: Close exposure to [place] VID-19 virus (Primary Dx) Start: 09-16-2021 End: 09-16-2021 Patient encounter procedure Michael Tylerl CARPET MEASURER Work Phone: Psychology Comment on above: Anxiety, mild (Prima ry Dx); Moderate episode of recurrent major depressive disorder (HCC) Start: 08-29-2021 Telephone encounter Michael Na ll CARPET MEASURER Work Phone: Psychology Comment on above: Consult ([facility] Pt Arnulfo ling) Start: 08-23-2021 Telephone encounter Michael Huerta ll CARPET MEASURER Work Phone: Psychology Comment on above: Consult (Initial [facility] Pt Outreach) Start: 08-23-2021 End: 08-23-2021 Patient encounter procedure Yosef Resendez MD Work Phone: [facility] [place] Comment on above: Anxiety and depressi on (Primary Dx); Panic disorder Start: 07-30-2021 End: 07-30-2021 Patient encounter procedure Yosef Resendez MD Work Phone: [facility] [place] Comment on above: Vasovagal syncope (P rimary Dx); Anxiety and depression; Panic disorder Start: 07-02-2021 End: 07-02-2021 Patient encounter procedure Yosef Resendez MD Work Phone: [facility] [place] Comment on above: Vasovagal syncope (P rimary Dx); Anxiety and depression Start: 11-14-2020 Telephone encounter Yosef hickey MD Work Phone: [facility] [place] Comment on above: Medication side effe cts Start: 07-30-2020 End: 07-30-2020 Subsequent hospital visit by physician Xr [facility] [place] Work Phone: Radiology Comment on above: Hand pain, right [M7 9.641] Procedures Date Procedure Procedure Detail Performing Clinician Start: 06-21-2024 Radex hip unilateral with pelvis 2-3 views Yosef Resendez MD Work Phone: Start: 05-16-2024 Follow-up visit Follow Up ISHA J BETO Start: 06-15-2023 Level iv surg pathology gross&microscopic exam Quyen Martinez MD Work Phone: Start: 06-15-2023 Colonoscopy flx dx w/collj spec when pfrmd Ana Rodriguez PA-Thad Work Phone: Start: 05-25-2023 Level iv surg pathology gross&microscopic exam Alvaro Hale MD Work Phone: Start: 05-25-2023 Esophagogastroduodenoscopy transoral diagnostic Ana POLK-Thad Work Phone: Start: 05-19-2023 Radiologic exam esophagus single contrast study Ana POLK-Thad Work Phone: Start: 07-30-2020 Radex hand minimum 3 views Jose Sundaral BOILER ERECTOR.FRUIT DUMPER Work Phone: Start: 10-03-2016 History and physical examination, pre-employment 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 Start: 10-03-2016 End: 10-03-2016 Pre-employment PE Yosef Franco Eusebio 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 Psychiatry [address] [place] [address] Isha Beckett, BOILER ERECTOR.FRUIT DUMPER [address] [place] [address] Psychiatry Start: 09-19-2024 Influenza vaccination Influenza Vaccine (#1) [facility] Comment on above: Postponed from 11/22/2023 (Declined at t his time) Start: 07-18-2024 End: 07-18-2024 ambulatory 07/18/2024 9:30 AM EDT [facility] Psychiatry [address] [place] [address] Isha Beckett, BOILER ERECTOR.FRUIT DUMPER [address] [place] [address] Psychiatry Start: 06-20-2024 End: 06-20-2024 Follow-up encounter 06/20/2024 9:30 AM EDT [facility] Psychiatry [address] [place] [address] Isha Beckett, BOILER ERECTOR.FRUIT DUMPER [address] [place] [address] 4-6 week follow up Psychiatry Comment on above: 4-6 week follow up Start: 05-16-2024 End: 05-16-2024 Follow-up encounter 05/16/2024 9:30 AM EST [facility] Psychiatry [address] [place] [address] Isha Beckett, BOILER ERECTOR.FRUIT DUMPER [address] [place] [address] 3 month follow up Psychiatry Comment on above: 3 month follow up Start: 04-25-2024 End: 07-25-2024 Comprehensive metabolic 2000 panel - Serum or Plasma COMPREHENSIVE METABOLIC PANEL Lab Routine Encounter for long-term (current) use of medications Expected: 04/25/2024, Expires: 07/25/2024 [facility] Work Phone: Comment on above: Expected: 04/25/2024, Expires: Start: 04-25-2024 End: 07-25-2024 Lipid 1996 panel - Serum or Plasma LIPID PANEL BASIC Lab Routine Encounter for long-term (current) use of medications Expected: 04/25/2024, Expires: 07/25/2024 [facility] Comment on above: Expected: 04/25/2024, Expires: Start: 04-25-2024 End: 07-25-2024 TOXICOLOGY SCREEN, ROUTINE URINE TOXICOLOGY SCREEN, ROUTINE URINE Lab Routine Encounter for long-term (current) use of medications Expected: 04/25/2024, Expires: 07/25/2024 [facility] Comment on above: Expected: 04/25/2024, Expires: Start: 04-25-2024 End: 04-25-2024 Follow-up encounter Psychiatry Comment on above: follow up 6 mo Start: 04-10-2024 Covid-19 Vaccine () Covid-19 Vaccine () [facility] Comment on above: Postponed from 11/21/2022 (Declined at t his time) Start: 04-10-2024 Hepatitis C screening Hepatitis C Screening [facility] Comment on above: Postponed from 2012 (Declined at t his time) Start: 04-10-2024 HIV screening HIV Screening [facility] Comment on above: Postponed from 2012 (Declined at t his time) Start: 02-15-2024 End: 05-16-2024 25-hydroxyvitamin D3 [Mass/volume] in Serum or Plasma VITAMIN D 25 HYDROXY Lab Routine Vitamin D deficiency Expected: 02/15/2024, Expires: 05/16/2024 [facility] Work Phone: Comment on above: Expected: 02/15/2024, Expires: Start: 02-15-2024 End: 05-16-2024 Comprehensive metabolic 2000 panel - Serum or Plasma COMPREHENSIVE METABOLIC PANEL Lab Routine Encounter for long-term (current) use of medications Expected: 02/15/2024, Expires: 05/16/2024 [facility] Comment on above: Expected: 02/15/2024, Expires: Start: 02-15-2024 End: 05-16-2024 Hemoglobin A1c in Blood HEMOGLOBIN A1C Lab Routine Encounter for long-term (current) use of medications Expected: 02/15/2024, Expires: 05/16/2024 [facility] Comment on above: Expected: 02/15/2024, Expires: Start: 02-15-2024 End: 05-16-2024 Lipid 1996 panel - Serum or Plasma LIPID PANEL BASIC Lab Routine Encounter for long-term (current) use of medications Expected: 02/15/2024, Expires: 05/16/2024 [facility] Comment on above: Expected: 02/15/2024, Expires: Start: 02-15-2024 End: 05-16-2024 PHOSPHATIDYLETHANOL (PETH) PHOSPHATIDYLETHANOL (PETH) Lab Routine Encounter for long-term (current) use of medications Expected: 02/15/2024, Expires: 05/16/2024 [facility] Comment on above: Expected: 02/15/2024, Expires: Start: 02-15-2024 End: 05-16-2024 TOXICOLOGY SCREEN, ROUTINE URINE TOXICOLOGY SCREEN, ROUTINE URINE Lab Routine Encounter for long-term (current) use of medications Expected: 02/15/2024, Expires: 05/16/2024 [facility] Comment on above: Expected: 02/15/2024, Expires: Start: 01-29-2024 End: 01-29-2024 Follow-up encounter 01/29/2024 2:00 PM [facility] Psychiatry [address] [place] [id number] Isha Beckett, BOILER ERECTOR.FRUIT DUMPER [address] [place] [id number] follow up Psychiatry Comment on above: follow up Start: 01-25-2024 End: 01-25-2024 Follow-up encounter 01/25/2024 10:30 AM EST [facility] [address] [place] [phone] Isha Beckett, BOILER ERECTOR.FRUIT DUMPER [address] [place] [id number] follow up Psychiatry Comment on above: follow up Start: 11-22-2023 Covid-19 Vaccine () Covid-19 Vaccine () [facility] Start: 11-22-2023 Covid-19 Vaccine () Covid-19 Vaccine () [facility] Start: 11-22-2023 Influenza vaccination [facility] Start: 11-19-2023 End: 11-19-2023 ambulatory 11/19/2023 9:30 AM EDT [facility] Psychiatry [address] [place] [address] Isha Beckett, BOILER ERECTOR.FRUIT DUMPER [address] [place] [address] discuss possible medication changes Psychiatry Comment on above: discuss possible medication changes Start: 10-22-2023 End: 01-21-2024 25-hydroxyvitamin D3 [Mass/volume] in Serum or Plasma VITAMIN D 25 HYDROXY Lab Routine Vitamin D deficiency Expected: 10/22/2023, Expires: 01/21/2024 [facility] Work Phone: Comment on above: Expected: 10/22/2023, Expires: Start: 10-22-2023 End: 10-22-2023 Follow-up encounter 10/22/2023 9:30 AM EDT [facility] Psychiatry [address] [place] [address] Isha Beckett, BOILER ERECTOR.FRUIT DUMPER [address] [place] [address] FOLLOW UP Psychiatry Comment on above: FOLLOW UP Start: 09-20-2023 [facility]enza [facility] Comment on above: Postponed from 11/21/2022 (Declined at t his time) Start: 09-08-2023 End: 09-08-2023 Patient encounter procedure 09/08/2023 10:55 AM EDT Office Visit Gastroenterology [facility] [address] [place] [address] Ana Rodriguez PA-C [address] [place] [address] Follow up office visit after egd, pharyngeal dysphagia,gerd [facility] Comment on above: Follow up office visit after egd, pharyn geal dysphagia,gerd Start: 02-10-2023 COVID-19 VACCINE (2 - Booster for Michelle series) COVID-19 VACCINE (2 - Booster for Michelle series) [facility] Comment on above: Postponed from 12/22/2020 (Declined at t his time) Start: 11-25-2022 End: 01-25-2023 25-hydroxyvitamin D3 [Mass/volume] in Serum or Plasma VITAMIN D 25 HYDROXY Lab Routine Vitamin D deficiency Expected: 11/25/2022, Expires: 01/25/2023 [facility] Work Phone: Comment on above: Expected: 11/25/2022, Expires: Start: 11-21-2022 Influenza vaccination [facility] Start: 11-05-2022 HEPATITIS C SCREENING HEPATITIS C SCREENING [facility] Comment on above: Postponed from 2012 (Declined at t his time) Start: 11-05-2022 HIV SCREENING HIV SCREENING [facility] Comment on above: Postponed from 2012 (Declined at t his time) Start: 09-19-2022 Influenza vaccination INFLUENZA (#1) [facility] Comment on above: Postponed from 11/21/2021 (Declined at t his time) Start: 05-26-2022 End: 07-26-2022 25-hydroxyvitamin D3 [Mass/volume] in Serum or Plasma VITAMIN D 25 HYDROXY Lab Routine Malaise and fatigue Expected: 05/26/2022, Expires: 07/26/2022 [facility] Work Phone: Comment on above: Expected: 05/26/2022, Expires: 3 Start: 05-26-2022 End: 07-26-2022 Cobalamin (Vitamin B12) [Mass/volume] in Serum or Plasma VITAMIN B12 BLOOD Lab Routine Malaise and fatigue Expected: 05/26/2022, Expires: 07/26/2022 [facility] Work Phone: Comment on above: Expected: 05/26/2022, Expires: 3 Start: 05-26-2022 End: 07-26-2022 Thyrotropin [Units/volume] in Serum or Plasma TSH BLD Lab Routine Malaise and fatigue Expected: 05/26/2022, Expires: 07/26/2022 [facility] Work Phone: Comment on above: Expected: 05/26/2022, Expires: 3 Start: 02-24-2022 End: 04-26-2022 Basic metabolic 2000 panel - Serum or Plasma BASIC METABOLIC PNL Lab Routine Renal insufficiency Expected: 02/24/2022, Expires: 04/26/2022 [facility] Work Phone: Comment on above: Expected: 02/24/2022, Expires: 3 Start: 02-19-2022 End: 04-21-2022 Basic metabolic 2000 panel - Serum or Plasma BASIC METABOLIC PNL Lab Routine Renal insufficiency Expected: 02/19/2022, Expires: 04/21/2022 [facility] Work Phone: Comment on above: Expected: 02/19/2022, Expires: 3 Start: 02-17-2022 End: 04-19-2022 Basic metabolic 2000 panel - Serum or Plasma BASIC METABOLIC PNL Lab Routine Diarrhea, unspecified type Expected: 02/17/2022, Expires: 04/19/2022 [facility] Work Phone: Comment on above: Expected: 02/17/2022, Expires: 3 Start: 02-17-2022 End: 04-19-2022 CBC W Auto Differential panel - Blood CBC + DIFF Lab Routine Diarrhea, unspecified type Expected: 02/17/2022, Expires: 04/19/2022 [facility] Work Phone: Comment on above: Expected: 02/17/2022, Expires: 3 Start: 11-21-2021 Influenza vaccination [facility] Start: 09-22-2021 End: 10-06-2021 Influenza virus A and B RNA and SARS-CoV-2 (COVID-19) N gene panel - Respiratory specimen by KIRIT with probe detection COVID WITH FLUA+B, ROUTINE Microbiology Routine Close exposure to COVID-19 virus Expected: 09/22/2021, Expires: 10/06/2021 [facility] Work Phone: Comment on above: Expected: 09/22/2021, Expires: 2 Start: 07-09-2021 HEPATITIS C SCREENING HEPATITIS C SCREENING [facility] Comment on above: Postponed from 2012 (Declined at t his time) Start: 07-09-2021 HIV SCREENING HIV SCREENING [facility] Comment on above: Postponed from 2012 (Declined at t his time) Start: 12-22-2020 COVID-19 VACCINE (2 - Booster for Michelle series) COVID-19 VACCINE (2 - Booster for Michelle series) [facility] Start: 10-03-2016 End: 10-03-2016 Appointment Appointment [facility] Work Phone: Start: 2012 HEPATITIS C SCREENING HEPATITIS C SCREENING [facility] Start: 2012 Hepatitis C screening Hepatitis C Screening [facility] Start: 2012 HIV SCREENING HIV SCREENING [facility] Start: 2012 HIV screening HIV Screening [facility] Start: 2008 PEDS TO ADULT TRANSITION ANNUAL ASSESSMENT PEDS TO ADULT TRANSITION ANNUAL ASSESSMENT [facility] Start: 2006 PEDS TO ADULT TRANSITION INITIAL DISCUSSION PEDS TO ADULT TRANSITION INITIAL DISCUSSION [facility] Start: 2005 HPV VACCINE (1 - Male 2-dose series) HPV VACCINE (1 - Male 2-dose series) [facility] Calprotectin [Mass/m ass] in Stool CALPROTECTIN,FECAL Lab Routine Diarrhea, unspecified type Ordered: 05/11/2023 [facility] Work Phone: Comment on above: Ordered: 05/11/2023 Clostridioides diffi cile toxin genes [Presence] in Stool by KIRIT with probe detection C. DIFFICILE PCR Lab Routine Diarrhea, unspecified type Ordered: 02/17/2022 [facility] Work Phone: Comment on above: Ordered: 02/17/2022 Clostridioides diffi cile toxin genes [Presence] in Stool by KIRIT with probe detection C. DIFFICILE PCR Lab Routine Diarrhea, unspecified type Ordered: 05/11/2023 [facility] Work Phone: Comment on above: Ordered: 05/11/2023 End: 03-27-2022 COLONOSCOPY DIAGNOSTIC COLONOSCOPY DIAGNOSTIC Endoscopy Routine Change in bowel habits Diarrhea, unspecified type Nausea 1 Occurrences starting 03/27/2022 until 03/27/2022 [facility] Work Phone: Comment on above: 1 Occurrences starting 03/27/2022 until 03/27/2022 COVID & INFLUENZA A/ B & RSV PCR, ROUTINE COVID & INFLUENZA A/B & RSV PCR, ROUTINE Microbiology Routine Acute cough Nasal congestion Nausea and vomiting, unspecified vomiting type Exposure to COVID-19 virus 11/23/2023 11:48 AM EDT [facility] Work Phone: End: 03-27-2022 EGD DIAGNOSTIC EGD DIAGNOSTIC Endoscopy Routine Change in bowel habits Diarrhea, unspecified type Nausea 1 Occurrences starting 03/27/2022 until 03/27/2022 [facility] Work Phone: Comment on above: 1 Occurrences starting 03/27/2022 until 03/27/2022 End: 05-05-2024 EGD DIAGNOSTIC EGD DIAGNOSTIC Endoscopy Routine Gastroesophageal reflux disease with esophagitis without hemorrhage 1 Occurrences starting 05/05/2023 until 05/05/2024 [facility] Work Phone: Comment on above: 1 Occurrences starting 05/05/2023 until 05/05/2024 ENTERIC BACTERIAL PA BEAN BY PCR ENTERIC BACTERIAL PANEL BY PCR Lab Routine Diarrhea, unspecified type Ordered: 02/17/2022 [facility] Work Phone: Comment on above: Ordered: 02/17/2022 ENTERIC BACTERIAL PA BEAN BY PCR ENTERIC BACTERIAL PANEL BY PCR Lab Routine Diarrhea, unspecified type Ordered: 05/11/2023 [facility] Work Phone: Comment on above: Ordered: 05/11/2023 FECAL LACTOFERRIN/LEUKOCYTES FECAL LACTOFERRIN/LEUKOCYTES Lab Routine Diarrhea, unspecified type Ordered: 02/17/2022 [facility] Work Phone: Comment on above: Ordered: 02/17/2022 End: 05-21-2024 Flexible sigmoidoscopy study COLONOSCOPY DIAGNOSTIC Endoscopy Routine Elevated fecal calprotectin Loose stools 1 Occurrences starting 05/22/2023 until 05/21/2024 [facility] Work Phone: Comment on above: 1 Occurrences starting 05/22/2023 until 05/21/2024 Giardia lamblia+Cryptosporidium sp Ag [Presence] in Stool by Immunoassay CRYPTOSPORIDIUM AND GIARDIA ANTIGENS BY EIA Microbiology Routine Diarrhea, unspecified type Ordered: 02/17/2022 [facility] Work Phone: Comment on above: Ordered: 02/17/2022 Hemoglobin.gastroint estin al.lower [Presence] in Stool by Immunoassay FECAL OCCULT BLOOD TEST Lab Routine Diarrhea, unspecified type Ordered: 02/17/2022 [facility] Work Phone: Comment on above: Ordered: 02/17/2022 Influenza virus A an d B RNA and SARS-CoV-2 (COVID-19) N gene panel - Respiratory specimen by KIRIT with probe detection COVID WITH FLUA+B, ROUTINE Microbiology Routine Suspected COVID-19 virus infection Ordered: 10/08/2021 [facility] Work Phone: Comment on above: Ordered: 10/08/2021 Ova and parasites identified in Unspecified specimen by Light microscopy OVA + PARA MICROSCOPIC Microbiology Routine Diarrhea, unspecified type Ordered: 05/11/2023 [facility] Work Phone: Comment on above: Ordered: 05/11/2023 Removal impacted cer umen irrigation/lvg unilat AMBULATORY EAR LAVAGE/IRRIGATION Procedures Routine Bilateral impacted cerumen Ordered: 04/09/2024 [facility] Work Phone: Comment on above: Ordered: 04/09/2024 SURGICAL PATHOLOGY [facility] Work Phone: Comment on above: Release Upon Ordering for 1 Occurrences starting 03/27/2022, 1 completed End: 06-03-2024 XR Esophagus Views W contrast PO XR ESOPHAGRAM Radiology Routine Pharyngeal dysphagia 1 Occurrences starting 05/05/2023 until 06/03/2024 [facility] Work Phone: Comment on above: 1 Occurrences starting 05/05/2023 until 06/03/2024 [facility] Immunizations Immunization Date Immunization Notes Care Provider Meena guadalupe 11-10-2020 tetanus toxoid, reduced diphtheria toxoid, and acellular pertussis vaccine, adsorbed Isha Rajguru BOILER ERECTOR.FRUIT DUMPER Work Phone: [facility] 03-25-2019 influenza virus vaccine, unspecified formulation Isha Rajguru BOILER E[employer]OR.[employer] Work Phone: [facility] 10-03-2016 measles, mumps and rubella virus vaccine Yosef Resendez MD Work Phone: [facility] 01-24-2016 influenza, injectabl e, quadrivalent, contains preservative Yosef Resendez MD Work Phone: [facility] 01-26-2015 influenza, injectabl e, quadrivalent, contains preservative Yosef Resendez MD Work Phone: [facility] 02-21-2009 influenza virus vaccine, unspecified formulation Yosef Resendez MD Work Phone: [facility] Work Phone: 02-21-2009 novel [id number], all formulations Yosef Resendez MD Work Phone: [facility] Work Phone: 12-28-2007 influenza virus vaccine, unspecified formulation Yosef Resendez MD Work Phone: [facility] Work Phone: 01-13-2007 influenza virus vaccine, unspecified formulation Yosef Resendez MD Work Phone: [facility] Work Phone: 01-13-2007 Meningococcal, MCV4, unspecified conjugate formulation(groups A, C, Y and W-135) Yosef Resendez MD Work Phone: [facility] Work Phone: 01-13-2007 tetanus toxoid, reduced diphtheria toxoid, and acellular pertussis vaccine, adsorbed Yosef Resendez MD Work Phone: [facility] Work Phone: 01-20-2006 influenza virus vaccine, unspecified formulation Yosef Resendez MD Work Phone: [facility] 01-21-2005 influenza virus vaccine, unspecified formulation Yosef Resendez MD Work Phone: [facility] Work Phone: 02-06-2003 influenza virus vaccine, unspecified formulation Yosef Resendez MD Work Phone: [facility] Work Phone: 02-08-2001 influenza virus vaccine, unspecified formulation Yosef Resendez MD Work Phone: [facility] Work Phone: 02-22-2000 influenza virus vaccine, unspecified formulation Yosef Resendez MD Work Phone: [facility] Work Phone: 11-20-1999 diphtheria, tetanus toxoids and acellular pertussis vaccine Yosef Resendez MD Work Phone: [facility] Work Phone: 11-20-1999 haemophilus influenz ae type b vaccine, HbOC conjugate Yosef Resendez MD Work Phone: [facility] Work Phone: 11-20-1999 measles, mumps and rubella virus vaccine Yosef Resendez MD Work Phone: [facility] Work Phone: 11-20-1999 poliovirus vaccine, inactivated Yosef Resendez MD Work Phone: [facility] Work Phone: 01-17-1998 influenza virus vaccine, unspecified formulation Yosef Resendez MD Work Phone: [facility] Work Phone: 12-28-1996 influenza virus vaccine, unspecified formulation Yosef Resendez MD Work Phone: [facility] Work Phone: 02-22-1996 influenza virus vaccine, unspecified formulation Yosef Resendez MD Work Phone: [facility] Work Phone: 01-19-1996 influenza virus vaccine, unspecified formulation Yosef Resendez MD Work Phone: [facility] Work Phone: 12-28-1995 diphtheria, tetanus toxoids and acellular pertussis vaccine Yosef Resendez MD Work Phone: [facility] Work Phone: 09-28-1995 measles, mumps and rubella virus vaccine Yosef Resendez MD Work Phone: [facility] Work Phone: 04-02-1995 diphtheria, tetanus toxoids and acellular pertussis vaccine Yosef Resendez MD Work Phone: [facility] Work Phone: 04-02-1995 haemophilus influenz ae type b vaccine, HbOC conjugate Yosef Resendez MD Work Phone: [facility] Work Phone: 04-02-1995 hepatitis B vaccine, pediatric or pediatric/adolescent dosage Yosef Resendez MD Work Phone: [facility] Work Phone: 04-02-1995 trivalent poliovirus vaccine, live, oral Yosef Resendez MD Work Phone: [facility] Work Phone: 02-10-1995 diphtheria, tetanus toxoids and acellular pertussis vaccine Yosef Resendez MD Work Phone: [facility] Work Phone: 02-10-1995 haemophilus influenz ae type b vaccine, HbOC conjugate Yosef Resendez MD Work Phone: [facility] Work Phone: 02-10-1995 trivalent poliovirus vaccine, live, oral Yosef Resendez MD Work Phone: [facility] Work Phone: 1994 diphtheria, tetanus toxoids and acellular pertussis vaccine Yosef Resendez MD Work Phone: [facility] Work Phone: 1994 haemophilus influenz ae type b vaccine, HbOC conjugate Yosef Resendez MD Work Phone: [facility] Work Phone: 1994 trivalent poliovirus vaccine, live, oral Yosef Resendez MD Work Phone: [facility] Work Phone: 1994 hepatitis B vaccine, pediatric or pediatric/adolescent dosage Yosef Resendez MD Work Phone: [facility] Work Phone: 1994 hepatitis B vaccine, pediatric or pediatric/adolescent dosage Yosef Resendez MD Work Phone: [facility] Work Phone: Payers Date Payer Category Payer Self-pay 2021 Unknown [id number] 2016 Medicaid [employer] [facility] MEDICAID [id number] 2016-Present [phone] [address] [place] [address] Medicaid [id number] 2016 Medicaid [id number] 2016 Medicaid [id number] Unknown [id number] Unknown [id number] Social History Date Type Detail Facility Start: 03-19-2017 End: 11-05-2021 Tobacco smoking status NHIS Never smoked tobacco [facility] Start: 07-02-2021 End: 10-08-2021 Alcohol intake Lifetime non-drinker (finding) [facility] Start: 11-08-2020 End: 02-17-2022 History SDOH Alcohol Frequency 1 [facility] Start: 12-20-2019 End: 02-17-2022 History SDOH Social Connections Phone 2 [facility] Start: 12-20-2019 End: 02-17-2022 History SDOH Social Connections Living 3 [facility] Start: 12-20-2019 End: 02-17-2022 History SDOH Physical Activity DPW 0 [facility] Start: 12-20-2019 End: 07-29-2021 History SDOH Financial 5 [facility] Start: 12-20-2019 Education 12 [facility] Start: 12-18-2008 End: 11-05-2021 Tobacco Comment outside [facility] Start: 1994 Sex Assigned At Male C [facility] Start: 06-30-2020 End: 02-10-2022 Exposure to SARS-CoV-2 (event) Not sure [facility] Start: 07-29-2021 History SDOH Alcohol Std Drinks 98 [facility] Start: 09-12-2021 End: 09-22-2021 Exposure to SARS-CoV-2 (event) Yes [facility] Start: 10-14-2021 End: 06-21-2024 Alcohol intake Ex-drinker (finding) [facility] Start: 03-19-2017 End: 11-05-2021 Tobacco use and exposure Smokeless tobacco non-user [facility] Start: 02-17-2022 History SDOH Physica l Activity DPW 7 [facility] Start: 02-17-2022 End: 08-04-2022 History of Social function [facility] Start: 02-17-2022 End: 08-04-2022 Social connection and isolation panel [facility] Do you belong to any clubs or organizations such as advent groups, unions, fraternal or athletic groups, or school groups? No [facility] Are you now , , , , never or living with a partner? [facility] How often to you hav e a drink containing alcohol? Never [facility] How many standard dr inks containing alcohol do you have on a typical day? Patient does not drink [facility] How hard is it for y ou to pay for the very basics like food, housing, medical care, and heating Hard [facility] Do you feel stress - tense, restless, nervous, or anxious, or unable to sleep at night because your mind is troubled all the time - these days [OSQ] To some extent [facility] (I/We) worried wheth er (my/our) food would run out before (I/we) got money to buy more. Sometimes true [facility] Start: 10-04-2019 Gender identity Identifies as male gender (finding) [facility] Start: 10-04-2019 Sexual orientation Heterosexual (crescencio mendosa) [facility] Start: 07-30-2020 Alcoholic beverage intake Not Asked [facility] (I/We) worried wheth er (my/our) food would run out before (I/we) got money to buy more. Never true [facility] Functional Status Date Assessment Result Facility 10-27-2014 Are you deaf, or do you have serious difficulty hearing No 10/27/2014 10:06 AM Jocelin Campuzano MA No [facility] 10-27-2014 Are you blind, or do you have serious difficulty seeing, even when wearing glasses No 10/27/2014 10:06 AM EDT Jocelin Mcleod MA No [facility] 10-27-2014 Do you have serious difficulty walking or climbing stairs No 10/27/2014 10:06 AM EDT Jocelin Mcleod MA No [facility] 10-27-2014 Do you have difficul ty dressing or bathing No 10/27/2014 10:06 AM EDT Jocelin Mcleod MA No [facility] 10-27-2014 Because of a physica l, mental, or emotional condition, do you have difficulty doing errands alone such as visiting a physician's office or shopping No 10/27/2014 10:06 AM EDT Jocelin Mcleod MA No [facility] Mental Status Date Assessment Result Facility 10-27-2014 Because of a physica l, mental, or emotional condition, do you have serious difficulty concentrating, remembering, or making decisions No 10/27/2014 10:06 AM EDT Jocelin Mcleod MA [facility] Clinical Notes 07-30-2020 to 08-29-2024 Telephone Encounter - Daxa Thompson - 08/29/2024 12:19 PM EDTTelephone Encounter - Daxa Thompson - 08/29/2024 12:19 PM EDTTelephone Encounter - Daxa Thompson - 07/25/2024 2:35 PM EDT Note Date & Type Note Facility 08-29-2024 Telephone encounter Note Last: 07/18/24 TREATMENT PLAN: 1. 1. CHARLES (generalized anxiety disorder) (F41.1) Improvement noted with current Buspirone regimen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 back of his leg to his knee and will wrap around to the front of his thigh. This pain is more of a sharp pain. Pain is intermittent since Thursday. States that movement seems to flare this up. Stands for 8 hours a day at work, and when the work day is over his pain is increased. Pain seems to improve with rest. Pain currently rated a 2/10. Pain when increased is a 5-6/10. Has taken Tylenol and Ibuprofen. Past medical history, appointments, medications, allergies reviewed. Previous Medical History PAST MEDICAL HISTORY Diagnosis Date Attention deficit disorder with hyperactivity(314.01) 12/28/2007 Depression Esophageal reflux Generalized anxiety disorder GERD (gastroesophageal reflux disease) Migraine with aura POTS (postural orthostatic tachycardia syndrome) Seizures (HCC) Unspecified asthma(493.90) Previous Surgical History PAST SURGICAL HISTORY Procedure Laterality Date COLONOSCOPY 03/27/2022 COLONOSCOPY SCREENING 06/15/2023 Normal EGD 03/27/2022 EGD 05/25/2023 GERD PAST SURGICAL HISTORY OF TANDA Family History FAMILY HISTORY Problem Relation Age of Onset Anxiety disorder Mother Depression Mother Asthma Father other (adhd) Father other (encephalitis) Maternal Grandfather other (ms) Maternal Grandfather other (cirrhosis) Maternal Grandfather Heart Other MOMS SIDE other (cholesterol) Other dads side Colon Cancer No Family History Patient Allergies ALLERGIES Allergen Reactions Rondec [Bromphenira* mom doesn't recall reaction as a baby Sympathomimetic Age* Sudafed Current Medications Current Outpatient Medications on File Prior to Visit Medication Sig LORazepam (ATIVAN) 0.5 mg Take 1 tablet by mouth two times a day as needed (severe anxiety symptoms) for up to 30 days. omega-3 fatty acids 1,000 mg cap Take 2 capsules by mouth once daily. brexpiprazole (REXULTI) 1 mg tablet Take 1 tablet by mouth once daily. omeprazole (PRILOSEC) 40 mg capsule Take 1 capsule by mouth once daily. busPIRone (BUSPAR) 15 mg tablet Take 1 tablet by mouth three times a day. desvenlafaxine ER (PRISTIQ) 50 mg 24 hr tablet Take 1 tablet by mouth once daily. ergocalciferol 50,000 unit capsule (VITAMIN D2, DRISDOL) Take 1 capsule by mouth one time a week. ondansetron orally disintegrating (ZOFRAN ODT) 4 mg disintegrating tablet Take 1 tablet by mouth every 6 hours as needed for nausea/vomiting. ALIGN 4 mg cap Take 1 capsule by mouth once daily midodrine (PROAMITINE) 5 mg tablet Take 1 tablet by mouth three times a day. bisacodyl EC (DULCOLAX, BISACODYL,) 5 mg EC tablet Refer to bowel prep instructions. psyllium husk (KONSYL) 6 gram pwpk packet Take 1 Packet by mouth once daily. albuterol HFA (PROVENTIL HFA, VENTOLIN HFA) 90 mcg/actuation inhaler Inhale 2 Puffs as instructed every 6 hours as needed. SUMAtriptan (IMITREX) 50 mg tablet Take 1 tablet by mouth as directed. TAKE AT ONSET OF MIGRAINE. MAY REPEAT X 1 IF NEEDED. No current facility-administered medications on file prior to visit. Social History Social History Tobacco Use Smoking status: Never Smokeless tobacco: Never Tobacco comments: outside Vaping Use Vaping status: Never Used Substance Use Topics Alcohol use: Not Currently Drug use: Not Currently Types: Marijuana EXAM: BP 110/72 (BP Site: Left Arm, BP Position: Sitting, BP Cuff Size: Regular Adult) Pulse 76 Resp 16 Wt 90.1 kg (198 lb 10.2 oz) BMI 26.94 kg/m? General Appearance: Well appearing, alert, in no acute distress, well-hydrated, well nourished.. Left hip: good ROM, some pain with ext rotation Left knee: no ses=welling, good ROM, no tenderness. Health Maintenance List Hepatitis C Screening Never done HIV Screening Never done Influenza Vaccine(1) due on 09/19/2024 Covid-19 Vaccine(2 - season) due on 02/22/2025 DTaP,Tdap,Td Vaccine(9 - Td or Tdap) due on 11/10/2030 Hepatitis B Vaccine Completed Data reviewed None ASSESSMENT/PLAN: 1. Left hip pain - ICD9: 719.45, ICD10: M25.552 (primary diagnosis) - XR HIP GENERAL 3V PELV/AP/LAT LEFT - MELOXICAM 15 MG TABLET 2. Chronic pain of left knee - ICD9: 719.46, 338.29, ICD10: M25.562, G89.29 - XR KNEE GENERAL 4V AP BOTH/PA (more content not included)... [facility] 06-21-2024 Instructions Isha Beckett, ERICA.FRUIT DUMPER - 06/21/2024 12:15 AM EDT TREATMENT PLAN: Take 15 mg of the Buspar in the morning and 30 mg (2 tablets of 15 mg) prior to going to work to see if that helps you address the increased anxiety related to work stress. Continue Pristiq 50 mg every morning to manage anxiety and mood symptoms. Consider increase in Pristiq at the next visit if patient continue to experience anxiety related to work. Continue Rexulti 1 mg once daily to address depressive symptoms. Continue Sumrall 3 fatty acid and Vitamin D supplement at the same dose. Will recheck Vitamin D at the next visit. Utilize Ativan 0.5 mg as needed to manage severe episodes of anxiety. Follow up in 4 weeks as scheduled. For those experiencing a suicidal crisis: --call the National Suicide Prevention Lifeline at 912 (723-140-0119) --text the Crisis Text Line (text HOME to 453228) --call 911 and let them know you are having a mental health crisis or go to your nearest Emergency Room for stabilization. --You can also call Mobile Crisis at [phone]. -- You may call the department appointment line at [phone] to schedule your appointment. -- Please call my nurse at [phone] or send me a message in [employer] with any questions or concerns between appointments. documented in this encounter [facility] 06-20-2024 Note HNO ID: [id number] Author: ISHA BECKETT APRN.CNP Service: ? Author Type: Nurse Practitioner Type: Progress Notes Filed: 06/21/2024 00:15 Note Text: FOLLOW UP - PSYCHIATRIC PROGRESS NOTE PATIENT: Amilcar Odonnell DATE: June 20, 2024 Visit Type: Virtual Visit utilizing two-way audio and video for at least a portion of the visit. Consent for virtual visit obtained verbally. Confidentiality limitations with virtual visits reviewed with the patient and guardian, if present, who have accepted the risk verbally prior to proceeding with encounter. I have communicated my name and active licensure. The patient's identity and physical location were verified at the time of this visit. Either the patient or their legal publications sales representative has been informed of the risks and benefits of -- and alternatives to -- treatment through a remote evaluation and consents to proceed with the evaluation remotely. All information is from Patient report except when noted. This evaluation is NOT intended for forensic, disability or child custody purposes. CC: Presenting today for follow up regarding psychiatric medication management. HPI: Treatment Plan from Last Visit on 05/16/2024: TREATMENT PLAN: Complete fasting monitoring lab work due to elevation in liver enzymes noted. Continue Rexulti at the same dose of 1 mg to address mood and anxiety symptoms. Continue Buspar at the same dose of 15 mg three times daily to help with anxiety symptoms consistently. Increase Sumrall 3 fatty acid supplement to 2000 mg to help with anxiety, mood, and energy levels. Continue Vitamin D supplement at the same dose and recheck levels in 3 months. Continue Pristiq at the same dose of 50 mg to address mood and anxiety symptoms. Follow up in 4 to 6 weeks. Today Amilcar shares that I am okay. Reviewed lab results and they were WNL. Has tolerated the increase in Sumrall 3 fatty acid but continues to struggle with anxiety. Discussed work related stress. This has increased his over all anxiety. They are short staffed. He tries to listen to music to help manage the anxiety. Has talked to management about increased stress. They have not shared what support they will be providing Valdemar. Continues to take Buspar 3 times a day. Takes it in the morning and before going to work and at night. Discussed taking 15 mg in the morning and 30 mg prior to going to work and none at bedtime. Valdemar shares that he does not have any difficulty sleeping at night. Doesn't note any symptoms of anxiety as night as he is so tired. Has needed to use the Ativan more this past month. Did request a refill this month. Discussed increasing the Pristiq next visit if patient is not able to manage anxiety symptoms related to work better. Has been consistent in taking the Vitamin D supplement. Interval Progress: Slightly worse PATIENT DATA: Generalized Anxiety Disorder Scale (CHARLES-7) 04/25/2024 05/16/2024 06/20/2024 CHARLES - 7 SCORES Score 16 6 12 (0-4) minimal anxiety, (5-9) mild anxiety, (10-14) moderate anxiety, (15-21) severe anxiety Patient Health Questionnaire (PHQ-9) 04/25/2024 05/16/2024 06/20/2024 PHQ-9 Score 13 6 7 (0-4) minimal depression, (5-9) mild depression, (10-14) moderate depression, (15-19) moderately severe depression, (20-27) severe depression PAST MEDICAL HISTORY Diagnosis Date Attention deficit disorder with hyperactivity(314.01) 12/28/2007 Depression Esophageal reflux Generalized anxiety disorder GERD (gastroesophageal reflux disease) Migraine with aura POTS (postural orthostatic tachycardia syndrome) Seizures (HCC) Unspecified asthma(493.90) PAST SURGICAL HISTORY Procedure Laterality Date COLONOSCOPY 03/27/2022 COLONOSCOPY SCREENING 06/15/2023 Normal EGD 03/27/2022 EGD 05/25/2023 GERD PAST SURGICAL HISTORY OF TANDA ALLERGIES Allergen Reactions Rondec [Bromphenira* mom doesn't recall reaction as a baby Sympathomimetic Age* Sudafed Current Outpatient Medications on File Prior to Visit Medication Sig brexpiprazole (REXULTI) 1 mg tablet Take 1 tablet by mouth once daily. omega-3 fatty acids 1,000 mg cap Take 2 capsules by mouth once daily. omeprazole (PRILOSEC) 40 mg capsule Take 1 capsule by mouth once daily. busPIRone (BUSPAR) 15 mg tablet Take 1 tablet by mouth three times a day. desvenlafaxine ER (PRISTIQ) 50 mg 24 hr tablet Take 1 tablet by mouth once daily. ergocalciferol 50,000 unit capsule (VITAMIN D2, DRISDOL) Take 1 capsule by mouth one time a week. ondansetron orally disintegrating (ZOFRAN ODT) 4 mg disintegrating tablet Take 1 tablet by mouth every 6 hours as needed for nausea/vomiting. ALIGN 4 mg cap Take 1 capsule by mouth once daily midodrine (PROAMITINE) 5 mg tablet Take 1 tablet by mouth three times a day. bisacodyl EC (DULCOLAX, BISACODYL,) 5 mg EC tablet Refer to bowel prep instructions. psyllium husk (KONSYL) 6 gram pwpk packet Take 1 (more content not included)... [facility] 06-20-2024 History of Present illness Narrative Images from the original note were not included. FOLLOW UP - PSYCHIATRIC PROGRESS NOTE PATIENT: Amilcar Odonnell DATE: June 20, 2024 Visit Type: Virtual Visit utilizing two-way audio and video for at least a portion of the visit. Consent for virtual visit obtained verbally. Confidentiality limitations with virtual visits reviewed with the patient and guardian, if present, who have accepted the risk verbally prior to proceeding with encounter. I have communicated my name and active licensure. The patient's identity and physical location were verified at the time of this visit. Either the patient or their legal publications sales representative has been informed of the risks and benefits of -- and alternatives to -- treatment through a remote evaluation and consents to proceed with the evaluation remotely. All information is from Patient report except when noted. This evaluation is NOT intended for forensic, disability or child custody purposes. CC: Presenting today for follow up regarding psychiatric medication management. HPI: Treatment Plan from Last Visit on 05/16/2024: TREATMENT PLAN: Complete fasting monitoring lab work due to elevation in liver enzymes noted. Continue Rexulti at the same dose of 1 mg to address mood and anxiety symptoms. Continue Buspar at the same dose of 15 mg three times daily to help with anxiety symptoms consistently. Increase Sumrall 3 fatty acid supplement to 2000 mg to help with anxiety, mood, and energy levels. Continue Vitamin D supplement at the same dose and recheck levels in 3 months. Continue Pristiq at the same dose of 50 mg to address mood and anxiety symptoms. Follow up in 4 to 6 weeks. Today Amilcar shares that I am okay. Reviewed lab results and they were WNL. Has tolerated the increase in Sumrall 3 fatty acid but continues to struggle with anxiety. Discussed work related stress. This has increased his over all anxiety. They are short staffed. He tries to listen to music to help manage the anxiety. Has talked to management about increased stress. They have not shared what support they will be providing Valdemar. Continues to take Buspar 3 times a day. Takes it in the morning and before going to work and at night. Discussed taking 15 mg in the morning and 30 mg prior to going to work and none at bedtime. Valdemar shares that he does not have any difficulty sleeping at night. Doesn't note any symptoms of anxiety as night as he is so tired. Has needed to use the Ativan more this past month. Did request a refill this month. Discussed increasing the Pristiq next visit if patient is not able to manage anxiety symptoms related to work better. Has been consistent in taking the Vitamin D supplement. Interval Progress: Slightly worse PATIENT DATA: Generalized Anxiety Disorder Scale (CHARLES-7) 04/25/2024 05/16/2024 06/20/2024 CHARLES - 7 SCORES Score 16 6 12 (0-4) minimal anxiety, (5-9) mild anxiety, (10-14) moderate anxiety, (15-21) severe anxiety Patient Health Questionnaire (PHQ-9) 04/25/2024 05/16/2024 06/20/2024 PHQ-9 Score 13 6 7 (0-4) minimal depression, (5-9) mild depression, (10-14) moderate depression, (15-19) moderately severe depression, (20-27) severe depression PAST MEDICAL HISTORY Diagnosis Date Attention deficit disorder with hyperactivity(314.01) 12/28/2007 Depression Esophageal reflux Generalized anxiety disorder GERD (gastroesophageal reflux disease) Migraine with aura POTS (postural orthostatic tachycardia syndrome) Seizures (HCC) Unspecified asthma(493.90) PAST SURGICAL HISTORY Procedure Laterality Date COLONOSCOPY 03/27/2022 COLONOSCOPY SCREENING 06/15/2023 Normal EGD 03/27/2022 EGD 05/25/2023 GERD PAST SURGICAL HISTORY OF T&A ALLERGIES Allergen Reactions Rondec [Bromphenira* mom doesn't recall reaction as a baby Sympathomimetic Age* Sudafed Current Outpatient Medications on File Prior to Visit Medication Sig brexpiprazole (REXULTI) 1 mg tablet Take 1 tablet by mouth once daily. omega-3 fatty acids 1,000 mg cap Take 2 capsules by mouth once daily. omeprazole (PRILOSEC) 40 mg capsule Take 1 capsule by mouth once daily. busPIRone (BUSPAR) 15 mg tablet Take 1 tablet by mouth three times a day. desvenlafaxine ER (PRISTIQ) 50 mg 24 hr tablet Take 1 tablet by mouth once daily. ergocalciferol 50,000 unit capsule (VITAMIN D2, DRISDOL) Take 1 capsule by mouth one time a week. ondansetron orally disintegrating (ZOFRAN ODT) 4 mg disintegrating tablet Take 1 tablet by mouth every 6 hours as needed for nausea/vomiting. ALIGN 4 mg cap Take 1 capsule by mouth once daily midodrine (PROAMITINE) 5 mg tablet Take 1 tablet by mouth three times a day. bisacodyl EC (DULCOLAX, BISACODYL,) 5 mg EC tablet Refer to bowel prep instructions. psyllium husk (KONSYL) 6 gram pwpk packet Take 1 Packet by mouth once daily. albuterol HFA (PROVENTIL HFA, VENTOLIN HFA) 90 mcg/actuation inhaler Inhale 2 Puffs as instructed every 6 hours as needed. SUMAtriptan (IMITREX) 50 mg tablet Take 1 tablet by mouth as directed. TAKE AT ONSET OF MIGRAINE. MAY REPEAT X 1 IF NEEDED. No current facility-administered medications on file prior to visit. ROS: See HPI PFSH: See HPI VITAL SIGNS: There were no vitals filed for this visit. Last 3 Encounter BP Readings: Date: BP: 04/11/2024 131/95 04/09/2024 139/94 02/29/2024 120/75 MENTAL STATUS EXAMINATION: Appearance: Casually dressed and groomed Behavior: Behaves appropriately during the encounter Social relatedness: Withdrawn Speech/Language: The patient demonstrates appropriate tone, prosody, kamran, phonetics, and syntax Mood: concerned Affect: Full and appropriate to topic Orientation: Person, Place, Time and Situation Associations: Intact and linear Hallucinations: None Delusions: None Suicidal Ideation: No suicidal ideation, intent or plan. Homicidal Ideation: No homicidal ideation, intent or plan. Insight: Appropriate Judgment: Appropriate DATA REVIEWED: Psychiatric scales, Electronic medical record, Labs, and The PDMP report was reviewed and found to be appropriate without any signs of misuse or diversion. DIAGNOSIS: Recurrent major depressive disorder, in partial remission (primary encounter diagnosis) Charles (generalized anxiety disorder) Encounter for long-term (current) use of medications Psychosocial stressors History of adhd GAF: -60-51 Moderate symptoms or moderate difficulty in social, occupational or school functioning. TREATMENT PLAN: Take 15 mg of the Buspar in the morning and 30 mg (2 tablets of 15 mg) prior to going to work to see if that helps you address the increased anxiety related to work stress. Continue Pristiq 50 mg every morning to manage anxiety and mood symptoms. Consider increase in Pristiq at the next visit if patient continue to experience anxiety related to work. Continue Rexulti 1 mg once daily to address depressive symptoms. Continue Sumrall 3 fatty acid and Vitamin D supplement at the same dose. Will recheck Vitamin D at the next visit. Utilize Ativan 0.5 mg as needed to manage severe episodes of anxiety. Follow up in 4 weeks as scheduled. MEDICATION CHANGES: Prescriptions given Patient denies any involuntary movement related side effects. See above. Risks and benefits of the medication, including any black box warnings, were discussed with the patient. Patient is aware to reach out with any questions, concerns, or worsening of symptoms prior to the next appointment. Patient educated on risks of substance use in combination with medications and advised that any substance use along with medications may alter their effectiveness. Follow Up: See Treatment Plan Medical Decision Making: Problems: Moderate: 1+ chronic illnesses with change and 2+ stable chronic illnesses Data: Unique source(s) for external note(s) reviewed: 3+ Unique test result(s) reviewed: 3+ Independent interpretation of test from other physician/QHCP Risk: Moderate: Moderate risk from testing/treatment and Drug management Medical Decision Making Level: 4 - Moderate ADD ON PSYCHOTHERAPY CODE : No SIGNATURE: Isha Beckett APRN.CNP PATIENT NAME: Amilcar Odonnell DATE: June 20, 2024 TIME: 9:30 AM documented in this encounter [facility] 05-16-2024 Instructions Isha Beckett APRN.CNP - 05/16/2024 10:29 AM EST TREATMENT PLAN: Complete fasting monitoring lab work due to elevation in liver enzymes noted. Continue Rexulti at the same dose of 1 mg to address mood and anxiety symptoms. Continue Buspar at the same dose of 15 mg three times daily to help with anxiety symptoms consistently. Increase Sumrall 3 fatty acid supplement to 2000 mg to help with anxiety, mood, and energy levels. Continue Vitamin D supplement at the same dose and recheck levels in 3 months. Continue Pristiq at the same dose of 50 mg to address mood and anxiety symptoms. Follow up in 4 to 6 weeks. For those experiencing a suicidal crisis: --call the National Suicide Prevention Lifeline at 988 (161.223.3485) --text the Crisis Text Line (text HOME to 735647) --call 911 and let them know you are having a mental health crisis or go to your nearest Emergency Room for stabilization. --You can also call Mobile Crisis at [phone]. -- You may call the department appointment line at [phone] to schedule your appointment. -- Please call my nurse at [phone] or send me a message in [employer] with any questions or concerns between appointments. documented in this encounter [facility] 05-16-2024 Note HNO ID: [id number] Author: ISHA BECKETT APRN.CNP Service: ? Author Type: Nurse Practitioner Type: Progress Notes Filed: 05/16/2024 10:30 Note Text: FOLLOW UP - PSYCHIATRIC PROGRESS NOTE PATIENT: Amilcar Odonnell DATE: May 16, 2024 Visit Type: Virtual Visit utilizing two-way audio and video for at least a portion of the visit. Consent for virtual visit obtained verbally. Confidentiality limitations with virtual visits reviewed with the patient and guardian, if present, who have accepted the risk verbally prior to proceeding with encounter. I have communicated my name and active licensure. The patient's identity and physical location were verified at the time of this visit. Either the patient or their legal publications sales representative has been informed of the risks and benefits of -- and alternatives to -- treatment through a remote evaluation and consents to proceed with the evaluation remotely. All information is from Patient report except when noted. This evaluation is NOT intended for forensic, disability or child custody purposes. CC: Presenting today for follow up regarding psychiatric medication management. HPI: Treatment Plan from Last Visit on 04/25/2024: TREATMENT PLAN: Start Vitamin D supplement 50,000 units once every week for the next 12 weeks. We will check your levels after that. Continue Pristiq and Buspar at the same dose to address anxiety symptoms. Continue Rexulti at the same dose to manage depressive symptoms. Utilize Ativan as needed to manage severe or breakthrough symptoms of anxiety. Complete urine lab work for monitoring purposes. Complete CMP and Lipid lab work due to elevation noted in liver enzymes and lipids in comparison to past labs. Restart Sumrall 3 fatty acids 1000 mg capsule to help with his mood and anxiety symptoms. Follow up in 4 to 6 weeks or sooner if needed. Discussed checking with work's HR if he qualifies for FMLA. Today Amilcar shares that I am doing alright. Has been able to restart Vitamin D. Denies any side effects from that or Sumrall 3 fatty acid supplement. Has been coping better with the loss of his pet compared to earlier this month. Improvement noted in both the CHARLES-7 and PHQ-9 scores. Has only needed to utilize his Ativan 2 times since last visit. Did not request a refill at this time. Shares that it has been a busy couple weeks. Forgot about the lab work. Aware that it is fasting and we are monitoring the elevation in liver enzymes. Denies any side effects from his medications. Working normal hours at work now. Has not checked with work's HR if he qualities for FMLA. Denies any concerns with his sleep or appetite currently. Shares that sometimes he is still feeling more tired. Mostly at night, around 5 to 6 pm. Verbalizes that his body is just catching up from a busy week as this fatigue is more noticeable on weekends. Interval Progress: Slightly improved PATIENT DATA: Generalized Anxiety Disorder Scale (CHARLES-7) 02/15/2024 04/25/2024 05/16/2024 CHARLES - 7 SCORES Score 7 16 6 (0-4) minimal anxiety, (5-9) mild anxiety, (10-14) moderate anxiety, (15-21) severe anxiety Patient Health Questionnaire (PHQ-9) 02/15/2024 04/25/2024 05/16/2024 PHQ-9 Score 7 13 6 (0-4) minimal depression, (5-9) mild depression, (10-14) moderate depression, (15-19) moderately severe depression, (20-27) severe depression PAST MEDICAL HISTORY Diagnosis Date Attention deficit disorder with hyperactivity(314.01) 12/28/2007 Depression Esophageal reflux Generalized anxiety disorder GERD (gastroesophageal reflux disease) Migraine with aura POTS (postural orthostatic tachycardia syndrome) Seizures (HCC) Unspecified asthma(493.90) PAST SURGICAL HISTORY Procedure Laterality Date COLONOSCOPY 03/27/2022 COLONOSCOPY SCREENING 06/15/2023 Normal EGD 03/27/2022 EGD 05/25/2023 GERD PAST SURGICAL HISTORY OF TANDA ALLERGIES Allergen Reactions Rondec [Bromphenira* mom doesn't recall reaction as a baby Sympathomimetic Age* Sudafed Current Outpatient Medications on File Prior to Visit Medication Sig omeprazole (PRILOSEC) 40 mg capsule Take 1 capsule by mouth once daily. brexpiprazole (REXULTI) 1 mg tablet Take 1 tablet by mouth once daily. busPIRone (BUSPAR) 15 mg tablet Take 1 tablet by mouth three times a day. desvenlafaxine ER (PRISTIQ) 50 mg 24 hr tablet Take 1 tablet by mouth once daily. ergocalciferol 50,000 unit capsule (VITAMIN D2, DRISDOL) Take 1 capsule by mouth one time a week. omega-3 fatty acids 1,000 mg cap Take 1 capsule by mouth once daily. LORazepam (ATIVAN) 0.5 mg Take 1 tablet by mouth two times a day as needed (severe anxiety symptoms) for up to 30 days. ondansetron orally disintegrating (ZOFRAN ODT) 4 mg disintegrating tablet Take 1 tablet by mouth every 6 hours as needed for nausea/vomiting. ALIGN 4 mg cap Take 1 capsule by mouth once daily midodrine (PROAMITINE) (more content not included)... [facility] 05-16-2024 History of Present illness Narrative Images from the original note were not included. FOLLOW UP - PSYCHIATRIC PROGRESS NOTE PATIENT: Amilcar Odonnell DATE: May 16, 2024 Visit Type: Virtual Visit utilizing two-way audio and video for at least a portion of the visit. Consent for virtual visit obtained verbally. Confidentiality limitations with virtual visits reviewed with the patient and guardian, if present, who have accepted the risk verbally prior to proceeding with encounter. I have communicated my name and active licensure. The patient's identity and physical location were verified at the time of this visit. Either the patient or their legal publications sales representative has been informed of the risks and benefits of -- and alternatives to -- treatment through a remote evaluation and consents to proceed with the evaluation remotely. All information is from Patient report except when noted. This evaluation is NOT intended for forensic, disability or child custody purposes. CC: Presenting today for follow up regarding psychiatric medication management. HPI: Treatment Plan from Last Visit on 04/25/2024: TREATMENT PLAN: Start Vitamin D supplement 50,000 units once every week for the next 12 weeks. We will check your levels after that. Continue Pristiq and Buspar at the same dose to address anxiety symptoms. Continue Rexulti at the same dose to manage depressive symptoms. Utilize Ativan as needed to manage severe or breakthrough symptoms of anxiety. Complete urine lab work for monitoring purposes. Complete CMP and Lipid lab work due to elevation noted in liver enzymes and lipids in comparison to past labs. Restart Sumrall 3 fatty acids 1000 mg capsule to help with his mood and anxiety symptoms. Follow up in 4 to 6 weeks or sooner if needed. Discussed checking with work's HR if he qualifies for FMLA. Today Amilcar shares that I am doing alright. Has been able to restart Vitamin D. Denies any side effects from that or Sumrall 3 fatty acid supplement. Has been coping better with the loss of his pet compared to earlier this month. Improvement noted in both the CHARLES-7 and PHQ-9 scores. Has only needed to utilize his Ativan 2 times since last visit. Did not request a refill at this time. Shares that it has been a busy couple weeks. Forgot about the lab work. Aware that it is fasting and we are monitoring the elevation in liver enzymes. Denies any side effects from his medications. Working normal hours at work now. Has not checked with work's HR if he qualities for FMLA. Denies any concerns with his sleep or appetite currently. Shares that sometimes he is still feeling more tired. Mostly at night, around 5 to 6 pm. Verbalizes that his body is just catching up from a busy week as this fatigue is more noticeable on weekends. Interval Progress: Slightly improved PATIENT DATA: Generalized Anxiety Disorder Scale (CHARLES-7) 02/15/2024 04/25/2024 05/16/2024 CHARLES - 7 SCORES Score 7 16 6 (0-4) minimal anxiety, (5-9) mild anxiety, (10-14) moderate anxiety, (15-21) severe anxiety Patient Health Questionnaire (PHQ-9) 02/15/2024 04/25/2024 05/16/2024 PHQ-9 Score 7 13 6 (0-4) minimal depression, (5-9) mild depression, (10-14) moderate depression, (15-19) moderately severe depression, (20-27) severe depression PAST MEDICAL HISTORY Diagnosis Date Attention deficit disorder with hyperactivity(314.01) 12/28/2007 Depression Esophageal reflux Generalized anxiety disorder GERD (gastroesophageal reflux disease) Migraine with aura POTS (postural orthostatic tachycardia syndrome) Seizures (HCC) Unspecified asthma(493.90) PAST SURGICAL HISTORY Procedure Laterality Date COLONOSCOPY 03/27/2022 COLONOSCOPY SCREENING 06/15/2023 Normal EGD 03/27/2022 EGD 05/25/2023 GERD PAST SURGICAL HISTORY OF T&A ALLERGIES Allergen Reactions Rondec [Bromphenira* mom doesn't recall reaction as a baby Sympathomimetic Age* Sudafed Current Outpatient Medications on File Prior to Visit Medication Sig omeprazole (PRILOSEC) 40 mg capsule Take 1 capsule by mouth once daily. brexpiprazole (REXULTI) 1 mg tablet Take 1 tablet by mouth once daily. busPIRone (BUSPAR) 15 mg tablet Take 1 tablet by mouth three times a day. desvenlafaxine ER (PRISTIQ) 50 mg 24 hr tablet Take 1 tablet by mouth once daily. ergocalciferol 50,000 unit capsule (VITAMIN D2, DRISDOL) Take 1 capsule by mouth one time a week. omega-3 fatty acids 1,000 mg cap Take 1 capsule by mouth once daily. LORazepam (ATIVAN) 0.5 mg Take 1 tablet by mouth two times a day as needed (severe anxiety symptoms) for up to 30 days. ondansetron orally disintegrating (ZOFRAN ODT) 4 mg disintegrating tablet Take 1 tablet by mouth every 6 hours as needed for nausea/vomiting. ALIGN 4 mg cap Take 1 capsule by mouth once daily midodrine (PROAMITINE) 5 mg tablet Take 1 tablet by mouth three times a day. bisacodyl EC (DULCOLAX, BISACODYL,) 5 mg EC tablet Refer to bowel prep instructions. psyllium husk (KONSYL) 6 gram pwpk packet Take 1 Packet by mouth once daily. albuterol HFA (PROVENTIL HFA, VENTOLIN HFA) 90 mcg/actuation inhaler Inhale 2 Puffs as instructed every 6 hours as needed. SUMAtriptan (IMITREX) 50 mg tablet Take 1 tablet by mouth as directed. TAKE AT ONSET OF MIGRAINE. MAY REPEAT X 1 IF NEEDED. No current facility-administered medications on file prior to visit. ROS: See HPI PFSH: See HPI VITAL SIGNS: There were no vitals filed for this visit. Last 3 Encounter BP Readings: Date: BP: 04/11/2024 131/95 04/09/2024 139/94 02/29/2024 120/75 MENTAL STATUS EXAMINATION: Appearance: Casually dressed, well groomed Behavior: Behaves appropriately during the encounter Social relatedness: Euthymic Speech/Language: The patient demonstrates appropriate tone, prosody, kamran, phonetics, and syntax Mood: euthymic Affect: Full and appropriate to topic Orientation: Person, Place, Time and Situation Associations: Intact and linear Hallucinations: None Delusions: None Suicidal Ideation: No suicidal ideation, intent or plan. Homicidal Ideation: No homicidal ideation, intent or plan. Insight: Appropriate Judgment: Appropriate DATA REVIEWED: Psychiatric scales, Electronic medical record, Labs, and The PDMP report was reviewed and found to be appropriate without any signs of misuse or diversion. DIAGNOSIS: Recurrent major depressive disorder, in partial remission (hcc) (primary encounter diagnosis) Charles (generalized anxiety disorder) Encounter for long-term (current) use of medications Vitamin d deficiency Psychosocial stressors Elevated liver enzymes Elevated fasting lipid profile GAF: -80-71 If symptoms are present, they are transient and expectable reactions to psychosocial stressors TREATMENT PLAN: Complete fasting monitoring lab work due to elevation in liver enzymes noted. Continue Rexulti at the same dose of 1 mg to address mood and anxiety symptoms. Continue Buspar at the same dose of 15 mg three times daily to help with anxiety symptoms consistently. Increase Sumrall 3 fatty acid supplement to 2000 mg to help with anxiety, mood, and energy levels. Continue Vitamin D supplement at the same dose and recheck levels in 3 months. Continue Pristiq at the same dose of 50 mg to address mood and anxiety symptoms. Follow up in 4 to 6 weeks. MEDICATION CHANGES: Prescriptions given See above. Patient denies any involuntary movement related side effects. Risks and benefits of the medication, including any black box warnings, were discussed with the patient. Patient is aware to reach out with any questions, concerns, or worsening of symptoms prior to the next appointment. Patient educated on risks of substance use in combination with medications and advised that any substance use along with medications may alter their effectiveness. Follow Up: See Treatment Plan Medical Decision Making: Problems: Moderate: 2+ stable chronic illnesses Data: Unique source(s) for external note(s) reviewed: 3+ Unique test result(s) reviewed: 3+ Unique test(s) ordered: 1 Independent interpretation of test from other physician/QHCP Risk: Moderate: Moderate risk from testing/treatment and Drug management Medical Decision Making Level: 4 - Moderate ADD ON PSYCHOTHERAPY CODE : No SIGNATURE: Isha Beckett APRN.CNP PATIENT NAME: Amilcar Odonnell DATE: May 16, 2024 TIME: 9:31 AM documented in this encounter [facility] 05-05-2024 Telephone encounter Note Prescription Refill Information The patient has been identified by name and date of : Yes Caregiver verified no other encounters exist for this prescription request: Yes Caregiver confirmed with patient/requestor that no other refills are due, in the near future, with this provider at this time: Yes The last office visit in the department: 04/11/24 Does the patient have a future office visit with this provider/department: No My chart message sent Requested Prescriptions Pending Prescriptions Disp Refills omeprazole (PRILOSEC) 40 mg capsule 30 capsule 0 Sig: Take 1 capsule by mouth once daily. Trenton Hernandez LPN May 05, 2024 6:48 AM [facility] 05-05-2024 Miscellaneous Notes Prescription Refill Information The patient has been identified by name and date of : Yes Caregiver verified no other encounters exist for this prescription request: Yes Caregiver confirmed with patient/requestor that no other refills are due, in the near future, with this provider at this time: Yes The last office visit in the department: 04/11/24 Does the patient have a future office visit with this provider/department: No My chart message sent Requested Prescriptions Pending Prescriptions Disp Refills omeprazole (PRILOSEC) 40 mg capsule 30 capsule 0 Sig: Take 1 capsule by mouth once daily. Trenton Hernandez LPN May 05, 2024 6:48 AM documented in this encounter [facility] 04-25-2024 Instructions Isha Beckett, BOILER ERECTOR.[facility] - 04/25/2024 10:01 AM EST TREATMENT PLAN: Start Vitamin D supplement 50,000 units once every week for the next 12 weeks. We will check your levels after that. Continue Pristiq and Buspar at the same dose to address anxiety symptoms. Continue Rexulti at the same dose to manage depressive symptoms. Utilize Ativan as needed to manage severe or breakthrough symptoms of anxiety. Complete urine lab work for monitoring purposes. Complete CMP and Lipid lab work due to elevation noted in liver enzymes and lipids in comparison to past labs. Restart Sumrall 3 fatty acids 1000 mg capsule to help with his mood and anxiety symptoms. Follow up in 4 to 6 weeks or sooner if needed. Discussed checking with work's HR if he qualifies for FMLA. For those experiencing a suicidal crisis: --call the National Suicide Prevention Lifeline at 751 (307-163-6720) --text the Crisis Text Line (text HOME to 250138) --call 911 and let them know you are having a mental health crisis or go to your nearest Emergency Room for stabilization. --You can also call Mobile Crisis at [phone]. -- You may call the department appointment line at [phone] to schedule your appointment. -- Please call my nurse at [phone] or send me a message in [employer] with any questions or concerns between appointments. documented in this encounter [facility] 04-25-2024 Note HNO ID: [id number] Author: ISHA BECKETT APRN.CNP Service: ? Author Type: Nurse Practitioner Type: Progress Notes Filed: 04/25/2024 10:04 Note Text: FOLLOW UP - PSYCHIATRIC PROGRESS NOTE PATIENT: Amilcar Odonnell DATE: April 25, 2024 Visit Type: Virtual Visit utilizing two-way audio and video for at least a portion of the visit. Consent for virtual visit obtained verbally. Confidentiality limitations with virtual visits reviewed with the patient and guardian, if present, who have accepted the risk verbally prior to proceeding with encounter. I have communicated my name and active licensure. The patient's identity and physical location were verified at the time of this visit. Either the patient or their legal publications sales representative has been informed of the risks and benefits of -- and alternatives to -- treatment through a remote evaluation and consents to proceed with the evaluation remotely. All information is from Patient report except when noted. This evaluation is NOT intended for forensic, disability or child custody purposes. CC: Presenting today for follow up regarding psychiatric medication management. HPI: Treatment Plan from Last Visit on 02/15/2024: TREATMENT PLAN: Continue Rexulti at the same dose to address depressive symptoms. Continue Buspar and Pristiq at the same dose to help manage anxiety symptoms. Utilize Ativan as needed to manage severe anxiety episodes. Complete Vitamin D lab work due to history of deficiency. Complete fasting monitoring lab work due to the current combination of his psychiatric medications. Follow up in 3 months or sooner if needed. Today Amilcar shares that he is doing okay. Reviewed the lab work. Did notice elevated Cholesterol levels. Liver enzymes were slightly elevated. Vitamin D is low and he is in agreement with starting a supplement. Has not been taking any supplements such as multi-vitamin and omega 3 fatty acid supplement. His dog who was 15 years old recently. They had to put the dog down due to tumors 2 weeks ago. Shares that this is why his PHQ-9 and CHARLES-7 scores are high. Is more irritable at work. Has not been able to take time away. Has been grieving by talking to his and some friends. He has been feeling more tired. He is not having trouble sleeping. Feels that the depression is related to dog's loss. Interval Progress: Worse PATIENT DATA: Generalized Anxiety Disorder Scale (CHARLES-7) 10/22/2023 02/15/2024 04/25/2024 CHARLES - 7 SCORES Score 6 7 16 (0-4) minimal anxiety, (5-9) mild anxiety, (10-14) moderate anxiety, (15-21) severe anxiety Patient Health Questionnaire (PHQ-9) 11/19/2023 02/15/2024 04/25/2024 PHQ-9 Score 7 7 13 (0-4) minimal depression, (5-9) mild depression, (10-14) moderate depression, (15-19) moderately severe depression, (20-27) severe depression PAST MEDICAL HISTORY Diagnosis Date Attention deficit disorder with hyperactivity(314.01) 12/28/2007 Depression Esophageal reflux Generalized anxiety disorder GERD (gastroesophageal reflux disease) Migraine with aura POTS (postural orthostatic tachycardia syndrome) Seizures (HCC) Unspecified asthma(493.90) PAST SURGICAL HISTORY Procedure Laterality Date COLONOSCOPY 03/27/2022 COLONOSCOPY SCREENING 06/15/2023 Normal EGD 03/27/2022 EGD 05/25/2023 GERD PAST SURGICAL HISTORY OF [facility] ALLERGIES Allergen Reactions Rondec [Bromphenira* mom doesn't recall reaction as a baby Sympathomimetic Age* Sudafed Current Outpatient Medications on File Prior to Visit Medication Sig ondansetron orally disintegrating (ZOFRAN ODT) 4 mg disintegrating tablet Take 1 tablet by mouth every 6 hours as needed for nausea/vomiting. desvenlafaxine ER (PRISTIQ) 50 mg 24 hr tablet Take 1 tablet by mouth once daily. busPIRone (BUSPAR) 15 mg tablet Take 1 tablet by mouth three times a day. brexpiprazole (REXULTI) 1 mg tablet Take 1 tablet by mouth once daily. omeprazole (PRILOSEC) 40 mg capsule Take 1 capsule by mouth once daily. ALIGN 4 mg cap Take 1 capsule by mouth once daily midodrine (PROAMITINE) 5 mg tablet Take 1 tablet by mouth three times a day. bisacodyl EC (DULCOLAX, BISACODYL,) 5 mg EC tablet Refer to bowel prep instructions. psyllium husk (KONSYL) 6 gram pwpk packet Take 1 Packet by mouth once daily. omega-3 acid ethyl esters (LOVAZA) 1 gram capsule TAKE 1 CAPSULE BY MOUTH ONCE DAILY IN THE AFTERNOON albuterol HFA (PROVENTIL HFA, VENTOLIN HFA) 90 mcg/actuation inhaler Inhale 2 Puffs as instructed every 6 hours as needed. SUMAtriptan (IMITREX) 50 mg tablet Take 1 tablet by mouth as directed. TAKE AT ONSET OF MIGRAINE. MAY REPEAT X 1 IF NEEDED. No current facility-administered medications on file prior to visit. ROS: See HPI PFSH: See HPI VITAL SIGNS: There were no vitals filed for this visit. Last 3 Encounter BP Readings: Date: BP: 04/11/2024 131/95 04/09/2024 139/9 (more content not included)... [facility] 04-25-2024 History of Present illness Narrative Images from the original note were not included. FOLLOW UP - PSYCHIATRIC PROGRESS NOTE PATIENT: Amilcar Odonnell DATE: April 25, 2024 Visit Type: Virtual Visit utilizing two-way audio and video for at least a portion of the visit. Consent for virtual visit obtained verbally. Confidentiality limitations with virtual visits reviewed with the patient and guardian, if present, who have accepted the risk verbally prior to proceeding with encounter. I have communicated my name and active licensure. The patient's identity and physical location were verified at the time of this visit. Either the patient or their legal publications sales representative has been informed of the risks and benefits of -- and alternatives to -- treatment through a remote evaluation and consents to proceed with the evaluation remotely. All information is from Patient report except when noted. This evaluation is NOT intended for forensic, disability or child custody purposes. CC: Presenting today for follow up regarding psychiatric medication management. HPI: Treatment Plan from Last Visit on 02/15/2024: TREATMENT PLAN: Continue Rexulti at the same dose to address depressive symptoms. Continue Buspar and Pristiq at the same dose to help manage anxiety symptoms. Utilize Ativan as needed to manage severe anxiety episodes. Complete Vitamin D lab work due to history of deficiency. Complete fasting monitoring lab work due to the current combination of his psychiatric medications. Follow up in 3 months or sooner if needed. Today Amilcar shares that he is doing okay. Reviewed the lab work. Did notice elevated Cholesterol levels. Liver enzymes were slightly elevated. Vitamin D is low and he is in agreement with starting a supplement. Has not been taking any supplements such as multi-vitamin and omega 3 fatty acid supplement. His dog who was 15 years old recently. They had to put the dog down due to tumors 2 weeks ago. Shares that this is why his PHQ-9 and CHARLES-7 scores are high. Is more irritable at work. Has not been able to take time away. Has been grieving by talking to his and some friends. He has been feeling more tired. He is not having trouble sleeping. Feels that the depression is related to dog's loss. Interval Progress: Worse PATIENT DATA: Generalized Anxiety Disorder Scale (CHARLES-7) 10/22/2023 02/15/2024 04/25/2024 CHARLES - 7 SCORES Score 6 7 16 (0-4) minimal anxiety, (5-9) mild anxiety, (10-14) moderate anxiety, (15-21) severe anxiety Patient Health Questionnaire (PHQ-9) 11/19/2023 02/15/2024 04/25/2024 PHQ-9 Score 7 7 13 (0-4) minimal depression, (5-9) mild depression, (10-14) moderate depression, (15-19) moderately severe depression, (20-27) severe depression PAST MEDICAL HISTORY Diagnosis Date Attention deficit disorder with hyperactivity(314.01) 12/28/2007 Depression Esophageal reflux Generalized anxiety disorder GERD (gastroesophageal reflux disease) Migraine with aura POTS (postural orthostatic tachycardia syndrome) Seizures (HCC) Unspecified asthma(493.90) PAST SURGICAL HISTORY Procedure Laterality Date COLONOSCOPY 03/27/2022 COLONOSCOPY SCREENING 06/15/2023 Normal EGD 03/27/2022 EGD 05/25/2023 GERD PAST SURGICAL HISTORY OF T&A ALLERGIES Allergen Reactions Rondec [Bromphenira* mom doesn't recall reaction as a baby Sympathomimetic Age* Sudafed Current Outpatient Medications on File Prior to Visit Medication Sig ondansetron orally disintegrating (ZOFRAN ODT) 4 mg disintegrating tablet Take 1 tablet by mouth every 6 hours as needed for nausea/vomiting. desvenlafaxine ER (PRISTIQ) 50 mg 24 hr tablet Take 1 tablet by mouth once daily. busPIRone (BUSPAR) 15 mg tablet Take 1 tablet by mouth three times a day. brexpiprazole (REXULTI) 1 mg tablet Take 1 tablet by mouth once daily. omeprazole (PRILOSEC) 40 mg capsule Take 1 capsule by mouth once daily. ALIGN 4 mg cap Take 1 capsule by mouth once daily midodrine (PROAMITINE) 5 mg tablet Take 1 tablet by mouth three times a day. bisacodyl EC (DULCOLAX, BISACODYL,) 5 mg EC tablet Refer to bowel prep instructions. psyllium husk (KONSYL) 6 gram pwpk packet Take 1 Packet by mouth once daily. omega-3 acid ethyl esters (LOVAZA) 1 gram capsule TAKE 1 CAPSULE BY MOUTH ONCE DAILY IN THE AFTERNOON albuterol HFA (PROVENTIL HFA, VENTOLIN HFA) 90 mcg/actuation inhaler Inhale 2 Puffs as instructed every 6 hours as needed. SUMAtriptan (IMITREX) 50 mg tablet Take 1 tablet by mouth as directed. TAKE AT ONSET OF MIGRAINE. MAY REPEAT X 1 IF NEEDED. No current facility-administered medications on file prior to visit. ROS: See HPI PFSH: See HPI VITAL SIGNS: There were no vitals filed for this visit. Last 3 Encounter BP Readings: Date: BP: 04/11/2024 131/95 04/09/2024 139/94 02/29/2024 120/75 MENTAL STATUS EXAMINATION: Appearance: Casually dressed, well groomed Behavior: Behaves appropriately during the encounter Social relatedness: sad Speech/Language: The patient demonstrates appropriate tone, prosody, kamran, phonetics, and syntax Mood: sad Affect: Flat and blunted Orientation: Person, Place, Time and Situation Associations: Intact and linear Hallucinations: None Delusions: None Suicidal Ideation: No suicidal ideation, intent or plan. Homicidal Ideation: No homicidal ideation, intent or plan. Insight: Appropriate Judgment: Appropriate DATA REVIEWED: Psychiatric scales, Electronic medical record, Labs, and The PDMP report was reviewed and found to be appropriate without any signs of misuse or diversion. DIAGNOSIS: Major depressive disorder, recurrent episode, moderate (hcc) Charles (generalized anxiety disorder) Encounter for long-term (current) use of medications (primary encounter diagnosis) Vitamin d deficiency Grief reaction Psychosocial stressors Elevated liver enzymes Elevated fasting lipid profile GAF: -60-51 Moderate symptoms or moderate difficulty in social, occupational or school functioning. TREATMENT PLAN: Start Vitamin D supplement 50,000 units once every week for the next 12 weeks. We will check your levels after that. Continue Pristiq and Buspar at the same dose to address anxiety symptoms. Continue Rexulti at the same dose to manage depressive symptoms. Utilize Ativan as needed to manage severe or breakthrough symptoms of anxiety. Complete urine lab work for monitoring purposes. Complete CMP and Lipid lab work due to elevation noted in liver enzymes and lipids in comparison to past labs. Restart Sumrall 3 fatty acids 1000 mg capsule to help with his mood and anxiety symptoms. Follow up in 4 to 6 weeks or sooner if needed. Discussed checking with work's HR if he qualifies for FMLA. MEDICATION CHANGES: Prescriptions given See above. Patient denies any involuntary movement related side effects. Risks and benefits of the medication, including any black box warnings, were discussed with the patient. Patient is aware to reach out with any questions, concerns, or worsening of symptoms prior to the next appointment. Patient educated on risks of substance use in combination with medications and advised that any substance use along with medications may alter their effectiveness. Follow Up: See Treatment Plan Medical Decision Making: Problems: Moderate: 2+ stable chronic illnesses High: Chronic illness with severe change Data: Unique source(s) for external note(s) reviewed: 3+ Unique test result(s) reviewed: 3+ Unique test(s) ordered: 2 Independent interpretation of test from other physician/QHCP Risk: High: High risk from testing/treatment and Drug therapy requiring intensive monitoring Medical Decision Making Level: 5 - High ADD ON PSYCHOTHERAPY CODE : No SIGNATURE: Isha Beckett APRN.CNP PATIENT NAME: Amilcar Odonnell DATE: April 25, 2024 TIME: 9:41 AM documented in this encounter [facility] 04-11-2024 History of Present illness Narrative Chief Complaint Patient presents with: Head Congestion: With RAMOS, fatigue, vomiting since HPI Amilcar Odonnell is a 28 year old male who presents here today for Above Complaints. Patient is here for headache, fatigue, vomiting. Present since . [facility]. Was told that he has a viral illness. Denies any ear pain, cough. Throat is sore in the morning but not at present time. He has a continued headache, extreme fatigue. He estimates 4-5 emesis daily. He has nausea. He has diarrhea but only having occasional episodes. Patient has had periods of chills, feeling warm. Afebrile today. Has been able to eat and drink but cannot keep anything down. Did admit to eating [employer] prior to our encounter today. Past medical history, appointments, medications, allergies reviewed. EXAM: BP 131/95 Pulse 92 Temp 36.8 C (98.2 F) Resp 18 Wt 89.4 kg (197 lb) SpO2 98% BMI 26.72 kg/m General Appearance: Well appearing, alert, in no acute distress, well-hydrated, well nourished.. Head: Normocephalic, no masses, lesions, tenderness or abnormalities. Eyes: Anicteric sclera. Pupils are equally round and reactive to light. Extraocular movements are intact. . Ears: External ears normal, canals clear. Nose/Sinuses: Nares normal, septum midline, mucosa normal, no drainage or sinus tenderness. Oropharynx: Lips, mucosa, and tongue normal, teeth and gums normal, oropharynx normal. Neck: Supple, no adenopathy Lungs: Lungs clear to auscultation. No wheezing, rhonchi, rales.. Heart: RRR without murmur, gallop, or rubs. No ectopy. Abdomen: Normal abdominal exam, Positive findings: tenderness mild epigastric. ASSESSMENT/PLAN: 1. Norovirus - ICD9: 008.63, ICD10: A08.11 (primary diagnosis) -Symptoms are consistent with norovirus or a similar gastrointestinal viral illness. Discussed with patient this will need to run its course. I encourage plenty of hydration, brat diet, use Zofran as needed. Avoid antidiarrheals. Wash hands with soap and water. - ONDANSETRON 4 MG DISINTEGRATING TABLET 2. Nausea vomiting and diarrhea - ICD9: 787.91, 787.01, ICD10: R11.2, R19.7 - see #1 - ONDANSETRON 4 MG DISINTEGRATING TABLET Anirudh Paige APRN.CNP This note was partly generated using [employer] voice recognition dictation and may contain some misspelled or inaccurate words missed on review. documented in this encounter [facility] 04-11-2024 Note HNO ID: [id number] Author: ANIRUDH PAIGE APRN.ORI Service: ? Author Type: Nurse Practitioner Type: Progress Notes Filed: 04/11/2024 11:49 Note Text: Chief Complaint Patient presents with: Head Congestion: With RAMOS, fatigue, vomiting since HPI Amilcar Odonnell is a 28 year old male who presents here today for Above Complaints. Patient is here for headache, fatigue, vomiting. Present since . He went to the [facility] ago. Was told that he has a viral illness. Denies any ear pain, cough. Throat is sore in the morning but not at present time. He has a continued headache, extreme fatigue. He estimates 4-5 emesis daily. He has nausea. He has diarrhea but only having occasional episodes. Patient has had periods of chills, feeling warm. Afebrile today. Has been able to eat and drink but cannot keep anything down. Did admit to eating [employer] prior to our encounter today. Past medical history, appointments, medications, allergies reviewed. EXAM: BP 131/95 Pulse 92 Temp 36.8 ?C (98.2 ?F) Resp 18 Wt 89.4 kg (197 lb) SpO2 98% BMI 26.72 kg/m? General Appearance: Well appearing, alert, in no acute distress, well-hydrated, well nourished.. Head: Normocephalic, no masses, lesions, tenderness or abnormalities. Eyes: Anicteric sclera. Pupils are equally round and reactive to light. Extraocular movements are intact. . Ears: External ears normal, canals clear. Nose/Sinuses: Nares normal, septum midline, mucosa normal, no drainage or sinus tenderness. Oropharynx: Lips, mucosa, and tongue normal, teeth and gums normal, oropharynx normal. Neck: Supple, no adenopathy Lungs: Lungs clear to auscultation. No wheezing, rhonchi, rales.. Heart: RRR without murmur, gallop, or rubs. No ectopy. Abdomen: Normal abdominal exam, Positive findings: tenderness mild epigastric. ASSESSMENT/PLAN: 1. Norovirus - ICD9: 008.63, ICD10: A08.11 (primary diagnosis) -Symptoms are consistent with norovirus or a similar gastrointestinal viral illness. Discussed with patient this will need to run its course. I encourage plenty of hydration, brat diet, use Zofran as needed. Avoid antidiarrheals. Wash hands with soap and water. - ONDANSETRON 4 MG DISINTEGRATING TABLET 2. Nausea vomiting and diarrhea - ICD9: 787.91, 787.01, ICD10: R11.2, R19.7 - see #1 - ONDANSETRON 4 MG DISINTEGRATING TABLET Anirudh Paige APRN.FRUIT DUMPER This note was partly generated using [employer] voice recognition dictation and may contain some misspelled or inaccurate words missed on review. [facility] 04-09-2024 Instructions Juana Garcia - 04/09/2024 2:33 PM EST ASSESSMENT/PLAN: 1. Viral URI with cough - ICD9: 465.9, ICD10: J06.9 (primary diagnosis) - Discussed viral etiology and rationale for treatment. - Symptomatic treatment with prn analgesia - Supportive care with fluids and rest - discussed viral testing for COVID, influenza and RSV at visit, pt was not interested at this time - DEXTROMETHORPHAN-GUAIFENESIN 10 MG-100 MG/5 ML ORAL SYRUP - FLUTICASONE PROPIONATE 50 MCG/ACTUATION NASAL SPRAY,SUSPENSION 2. Bilateral impacted cerumen - ICD9: 380.4, ICD10: H61.23 - AMBULATORY EAR LAVAGE/IRRIGATION RESPIRATORY INFECTION GENERAL INFORMATION: An upper respiratory tract infection, or cold, is a viral infection of the airway passages. It can be caused by any one of almost 200 different viruses. Common symptoms include a runny or stuffy nose, sneezing, watery eyes, sore throat, cough, and slight fever. Colds are contagious, especially during the first 3 or 4 days and cannot be cured by antibiotics. They are spread by coughs, sneezes, and direct contact, especially [id number]. A respiratory tract infection usually clears up in a few days, but some people may be sick for a week or two. INSTRUCTIONS: 1. Be careful not to blow your nose too hard because this may cause a nosebleed. 2. Use a cool-mist humidifier (vaporizer) to increase air moisture. This will make it easier for you to breathe. Do not use hot steam. 3. Rest as much as possible and get plenty of sleep. 4. Wash your hands often, especially after you blow your nose. Cover your mouth and nose with a tissue when you sneeze or cough. 5. Drink plenty of clear fluids (8 glasses a day) such as water, fruit juice, tea, clear soups, and carbonated beverages. CONTACT YOUR DOCTOR IF : 1. Your fever lasts more than 3 days. 2. You have a sore throat that gets worse or you see white or yellow spots in your throat. 3. Your cough gets worse or lasts more than 10 days. 4. You develop a rash anywhere on your skin. 5. You have an earache or a headache. 6. You have thick greenish or yellowish discharge from your nose. RETURN IMMEDIATELY IF: 1. You cough up thick yellow, green, haile, or bloody sputum. 2. You have difficulty breathing, pain in your chest, or your skin or nails look haile or blue. 3. You have shaking chills or a temperature over 102 F (39 C). documented in this encounter [facility] 04-09-2024 Note HNO ID: [id number] Author: MICHELA WEEKS APRN.FRUIT DUMPER Service: ? Author Type: Nurse Practitioner Type: Progress Notes Filed: 04/09/2024 14:40 Note Text: Subjective Pt is a 28 y/o male who presents with sore throat, nasal congestion and vomiting x 3 days. Pt is taking care of son who has similar symptoms. Pt has no reports of fever. During visit, unable to visualize bilateral TM's due to impacted cerumen. Bilateral ear lavage/irrigation was successfully performed by nursing staff during visit. HPI Review of Systems Constitutional: Positive for malaise/fatigue. HENT: Positive for congestion, ear pain and sore throat. Respiratory: Positive for cough, sputum production and shortness of breath. Gastrointestinal: Positive for nausea and vomiting. Neurological: Positive for headaches. BP 139/94 Pulse 94 Temp 36.7 ?C (98.1 ?F) (Oral) Resp 16 Wt 88.5 kg (195 lb 1.7 oz) SpO2 97% BMI 26.46 kg/m? PAST MEDICAL HISTORY Diagnosis Date Attention deficit disorder with hyperactivity(314.01) 12/28/2007 Depression Esophageal reflux Generalized anxiety disorder GERD (gastroesophageal reflux disease) Migraine with aura POTS (postural orthostatic tachycardia syndrome) Seizures (HCC) Unspecified asthma(493.90) PAST SURGICAL HISTORY Procedure Laterality Date COLONOSCOPY 03/27/2022 COLONOSCOPY SCREENING 06/15/2023 Normal EGD 03/27/2022 EGD 05/25/2023 GERD PAST SURGICAL HISTORY OF TANDA ALLERGIES Rondec [Brompheniramine-Pseudoephedrin] and Sympathomimetic Agents MEDICATIONS desvenlafaxine ER (PRISTIQ) 50 mg 24 hr tablet Take 1 tablet by mouth once daily. busPIRone (BUSPAR) 15 mg tablet Take 1 tablet by mouth three times a day. brexpiprazole (REXULTI) 1 mg tablet Take 1 tablet by mouth once daily. omeprazole (PRILOSEC) 40 mg capsule Take 1 capsule by mouth once daily. ALIGN 4 mg cap Take 1 capsule by mouth once daily midodrine (PROAMITINE) 5 mg tablet Take 1 tablet by mouth three times a day. bisacodyl EC (DULCOLAX, BISACODYL,) 5 mg EC tablet Refer to bowel prep instructions. psyllium husk (KONSYL) 6 gram pwpk packet Take 1 Packet by mouth once daily. ondansetron orally disintegrating (ZOFRAN ODT) 4 mg disintegrating tablet Take 1 tablet by mouth every 6 hours as needed for nausea/vomiting. omega-3 acid ethyl esters (LOVAZA) 1 gram capsule TAKE 1 CAPSULE BY MOUTH ONCE DAILY IN THE AFTERNOON albuterol HFA (PROVENTIL HFA, VENTOLIN HFA) 90 mcg/actuation inhaler Inhale 2 Puffs as instructed every 6 hours as needed. SUMAtriptan (IMITREX) 50 mg tablet Take 1 tablet by mouth as directed. TAKE AT ONSET OF MIGRAINE. MAY REPEAT X 1 IF NEEDED. guaiFENesin-dextromethorphan (ROBITUSSIN DM) 100-10 mg/5 mL syrup Take 5 mL by mouth three times a day as needed for up to 7 days. fluticasone (FLONASE) 50 mcg/actuation nasal spray Use 2 Sprays in each nostril once daily for 7 days. Rinse mouth after use. FAMILY HISTORY Problem Relation Age of Onset Anxiety disorder Mother Depression Mother Asthma Father other (adhd) Father other (encephalitis) Maternal Grandfather other (ms) Maternal Grandfather other (cirrhosis) Maternal Grandfather Heart Other MOMS SIDE other (cholesterol) Other dads side Colon Cancer No Family History Social History Tobacco Use Smoking status: Never Smokeless tobacco: Never Tobacco comments: outside Vaping Use Vaping status: Never Used Substance Use Topics Alcohol use: Not Currently Drug use: Not Currently Types: Marijuana Objective Physical Exam Constitutional: General: He is awake. Appearance: Normal appearance. HENT: Head: Normocephalic. Right Ear: Tympanic membrane and ear canal normal. Left Ear: Tympanic membrane and ear canal normal. Ears: Comments: Impacted cerumen bilaterally, cleared with ear lavage/irrigation. Nose: Nasal tenderness, congestion and rhinorrhea present. Rhinorrhea is clear. Right Turbinates: Enlarged and swollen. Left Turbinates: Enlarged and swollen. Comments: Bilateral erythematous and swollen turbinates Mouth/Throat: Mouth: Mucous membranes are moist. Pharynx: Oropharynx is clear. Eyes: Conjunctiva/sclera: Conjunctivae normal. Cardiovascular: Rate and Rhythm: Normal rate and regular rhythm. Heart sounds: Normal heart sounds. Pulmonary: Effort: Pulmonary effort is normal. Breath sounds: Normal breath sounds. Neurological: Mental Status: He is alert. ASSESSMENT/PLAN: 1. Viral URI with cough - ICD9: 465.9, ICD10: J06.9 (primary diagnosis) - Discussed viral etiology and rationale for treatment. - Symptomatic treatment with prn analgesia - Supportive care with fluids and rest - discussed viral testing for COVID, influenza and RSV at visit, pt was not interested at this time - DEXTROMETHORPHAN-GUAIFENESIN 10 MG-100 MG/5 ML ORAL SYRUP - FLUTICASONE PROPIONATE 50 MCG/ACTUATION NASAL SPRAY,SUSPENSION 2. Bilateral impacted cerumen - ICD9: 380. (more content not included)... [facility] 04-09-2024 History of Present illness Narrative Subjective Pt is a 28 y/o male who presents with sore throat, nasal congestion and vomiting x 3 days. Pt is taking care of son who has similar symptoms. Pt has no reports of fever. During visit, unable to visualize bilateral TM's due to impacted cerumen. Bilateral ear lavage/irrigation was successfully performed by nursing staff during visit. HPI Review of Systems Constitutional: Positive for malaise/fatigue. HENT: Positive for congestion, ear pain and sore throat. Respiratory: Positive for cough, sputum production and shortness of breath. Gastrointestinal: Positive for nausea and vomiting. Neurological: Positive for headaches. BP 139/94 Pulse 94 Temp 36.7 C (98.1 F) (Oral) Resp 16 Wt 88.5 kg (195 lb 1.7 oz) SpO2 97% BMI 26.46 kg/m PAST MEDICAL HISTORY Diagnosis Date Attention deficit disorder with hyperactivity(314.01) 12/28/2007 Depression Esophageal reflux Generalized anxiety disorder GERD (gastroesophageal reflux disease) Migraine with aura POTS (postural orthostatic tachycardia syndrome) Seizures (HCC) Unspecified asthma(493.90) PAST SURGICAL HISTORY Procedure Laterality Date COLONOSCOPY 03/27/2022 COLONOSCOPY SCREENING 06/15/2023 Normal EGD 03/27/2022 EGD 05/25/2023 GERD PAST SURGICAL HISTORY OF T&A ALLERGIES Rondec [Brompheniramine-Pseudoephedrin] and Sympathomimetic Agents MEDICATIONS desvenlafaxine ER (PRISTIQ) 50 mg 24 hr tablet Take 1 tablet by mouth once daily. busPIRone (BUSPAR) 15 mg tablet Take 1 tablet by mouth three times a day. brexpiprazole (REXULTI) 1 mg tablet Take 1 tablet by mouth once daily. omeprazole (PRILOSEC) 40 mg capsule Take 1 capsule by mouth once daily. ALIGN 4 mg cap Take 1 capsule by mouth once daily midodrine (PROAMITINE) 5 mg tablet Take 1 tablet by mouth three times a day. bisacodyl EC (DULCOLAX, BISACODYL,) 5 mg EC tablet Refer to bowel prep instructions. psyllium husk (KONSYL) 6 gram pwpk packet Take 1 Packet by mouth once daily. ondansetron orally disintegrating (ZOFRAN ODT) 4 mg disintegrating tablet Take 1 tablet by mouth every 6 hours as needed for nausea/vomiting. omega-3 acid ethyl esters (LOVAZA) 1 gram capsule TAKE 1 CAPSULE BY MOUTH ONCE DAILY IN THE AFTERNOON albuterol HFA (PROVENTIL HFA, VENTOLIN HFA) 90 mcg/actuation inhaler Inhale 2 Puffs as instructed every 6 hours as needed. SUMAtriptan (IMITREX) 50 mg tablet Take 1 tablet by mouth as directed. TAKE AT ONSET OF MIGRAINE. MAY REPEAT X 1 IF NEEDED. guaiFENesin-dextromethorphan (ROBITUSSIN DM) 100-10 mg/5 mL syrup Take 5 mL by mouth three times a day as needed for up to 7 days. fluticasone (FLONASE) 50 mcg/actuation nasal spray Use 2 Sprays in each nostril once daily for 7 days. Rinse mouth after use. FAMILY HISTORY Problem Relation Age of Onset Anxiety disorder Mother Depression Mother Asthma Father other (adhd) Father other (encephalitis) Maternal Grandfather other (ms) Maternal Grandfather other (cirrhosis) Maternal Grandfather Heart Other MOMS SIDE other (cholesterol) Other dads side Colon Cancer No Family History Social History Tobacco Use Smoking status: Never Smokeless tobacco: Never Tobacco comments: outside Vaping Use Vaping status: Never Used Substance Use Topics Alcohol use: Not Currently Drug use: Not Currently Types: Marijuana Objective Physical Exam Constitutional: General: He is awake. Appearance: Normal appearance. HENT: Head: Normocephalic. Right Ear: Tympanic membrane and ear canal normal. Left Ear: Tympanic membrane and ear canal normal. Ears: Comments: Impacted cerumen bilaterally, cleared with ear lavage/irrigation. Nose: Nasal tenderness, congestion and rhinorrhea present. Rhinorrhea is clear. Right Turbinates: Enlarged and swollen. Left Turbinates: Enlarged and swollen. Comments: Bilateral erythematous and swollen turbinates Mouth/Throat: Mouth: Mucous membranes are moist. Pharynx: Oropharynx is clear. Eyes: Conjunctiva/sclera: Conjunctivae normal. Cardiovascular: Rate and Rhythm: Normal rate and regular rhythm. Heart sounds: Normal heart sounds. Pulmonary: Effort: Pulmonary effort is normal. Breath sounds: Normal breath sounds. Neurological: Mental Status: He is alert. ASSESSMENT/PLAN: 1. Viral URI with cough - ICD9: 465.9, ICD10: J06.9 (primary diagnosis) - Discussed viral etiology and rationale for treatment. - Symptomatic treatment with prn analgesia - Supportive care with fluids and rest - discussed viral testing for COVID, influenza and RSV at visit, pt was not interested at this time - DEXTROMETHORPHAN-GUAIFENESIN 10 MG-100 MG/5 ML ORAL SYRUP - FLUTICASONE PROPIONATE 50 MCG/ACTUATION NASAL SPRAY,SUSPENSION 2. Bilateral impacted cerumen - ICD9: 380.4, ICD10: H61.23 Cerumen removed via irrigation by DISINTEGRATOR, patient tolerated procedure well. Post procedure bilateral ear canals clear and TMs well visualized with bony landmarks intact and no sign of inflammation/infection. - AMBULATORY EAR LAVAGE/IRRIGATION Juana Garcia TEACHING PROVIDER (Physician/PA/BOILER ERECTOR) NOTE OF PERSONAL INVOLVEMENT IN CARE: I have personally seen and examined the patient and performed the medical decision-making components. I have reviewed the Advanced Practice Registered Nurse (BOILER ERECTOR) Student's documentation and verified the findings in the note as written. Any additions or changes are noted in bold/italics. Signature: Michela Weeks Date: 04/09/2024 Time: 2:39 PM documented in this encounter [facility] 02-29-2024 Instructions Ligia Kuhn APRN.ORI - 02/29/2024 1:33 PM EST Start Doxycycline, take with food Continue supportive care at home Stay well hydrated May use OTC cold and cough medications. Follow up if no improvement. documented in this encounter [facility] 02-29-2024 History of Present illness Narrative This is a 28 year old male who presents today with: Patient presents with: Head Congestion HISTORY OF PRESENT ILLNESS: Amilcar Odonnell is a 28 year old male. Patient presents with: Head Congestion Here in the office for ongoing sinus symptoms. Saw PCP on 02/23/2024, treated with Z-Grecia for sinusitis and bronchitis.Still having on going sinus congestion and productive cough. Yellow sinus drainage and chest mucus. Taking cold and cough medication as needed. Denies any fever or chills. PAST MEDICAL HISTORY: PAST MEDICAL HISTORY Diagnosis Date Attention deficit disorder with hyperactivity(314.01) 12/28/2007 Depression Esophageal reflux Generalized anxiety disorder GERD (gastroesophageal reflux disease) Migraine with aura POTS (postural orthostatic tachycardia syndrome) Seizures (HCC) Unspecified asthma(493.90) PAST SURGICAL HISTORY Procedure Laterality Date COLONOSCOPY 03/27/2022 COLONOSCOPY SCREENING 06/15/2023 Normal EGD 03/27/2022 EGD 05/25/2023 GERD PAST SURGICAL HISTORY OF T&A ALLERGIES Rondec [Brompheniramine-Pseudoephedrin] and Sympathomimetic Agents MEDICATIONS Current Outpatient Medications Medication Sig benzonatate (TESSALON PERLE) 100 mg capsule Take 2 capsules by mouth three times a day as needed for up to 10 days. desvenlafaxine ER (PRISTIQ) 50 mg 24 hr tablet Take 1 tablet by mouth once daily. busPIRone (BUSPAR) 15 mg tablet Take 1 tablet by mouth three times a day. brexpiprazole (REXULTI) 1 mg tablet Take 1 tablet by mouth once daily. LORazepam (ATIVAN) 0.5 mg Take 1 tablet by mouth two times a day as needed (severe anxiety symptoms) for up to 30 days. omeprazole (PRILOSEC) 40 mg capsule Take 1 capsule by mouth once daily. ALIGN 4 mg cap Take 1 capsule by mouth once daily midodrine (PROAMITINE) 5 mg tablet Take 1 tablet by mouth three times a day. bisacodyl EC (DULCOLAX, BISACODYL,) 5 mg EC tablet Refer to bowel prep instructions. psyllium husk (KONSYL) 6 gram pwpk packet Take 1 Packet by mouth once daily. ondansetron orally disintegrating (ZOFRAN ODT) 4 mg disintegrating tablet Take 1 tablet by mouth every 6 hours as needed for nausea/vomiting. omega-3 acid ethyl esters (LOVAZA) 1 gram capsule TAKE 1 CAPSULE BY MOUTH ONCE DAILY IN THE AFTERNOON albuterol HFA (PROVENTIL HFA, VENTOLIN HFA) 90 mcg/actuation inhaler Inhale 2 Puffs as instructed every 6 hours as needed. SUMAtriptan (IMITREX) 50 mg tablet Take 1 tablet by mouth as directed. TAKE AT ONSET OF MIGRAINE. MAY REPEAT X 1 IF NEEDED. No current facility-administered medications for this visit. FAMILY HISTORY Problem Relation Age of Onset Anxiety disorder Mother Depression Mother Asthma Father other (adhd) Father other (encephalitis) Maternal Grandfather other (ms) Maternal Grandfather other (cirrhosis) Maternal Grandfather Heart Other MOMS SIDE other (cholesterol) Other dads side Colon Cancer No Family History Social History Tobacco Use Smoking status: Never Smokeless tobacco: Never Tobacco comments: outside Vaping Use Vaping status: Never Used Substance Use Topics Alcohol use: Not Currently Drug use: Not Currently Types: Marijuana REVIEW OF SYSTEMS GENERAL: No weight loss, malaise or fevers/chills HEENT: + Sinus Congestion NECK: Negative for lumps, goiter, pain and significant neck swelling RESPIRATORY: + Cough CARDIOVASCULAR: Negative for chest pain, leg swelling, orthopnea, or palpitations GI: No nausea, vomiting, or diarrhea/constipation. No hematochezia/melena. No heartburn or reflux symptoms. : No history of dysuria, frequency or incontinence MUSCULOSKELETAL: Negative for joint pain or swelling. SKIN: Negative for lesions, rash, and itching ENDOCRINE: Negative for cold or heat intolerance, polyuria, polydipsia and goiter NEURO: No history of headaches, syncope, paralysis, seizures or tremors MOOD: Negative for depression, anxiety, or suicidal ideation. EXAM: BP 120/75 Pulse 105 Ht 182.9 cm (6') Wt 86.2 kg (190 lb) BMI 25.77 kg/m PHYSICAL EXAM: General Appearance: Well appearing, alert, in no acute distress, well-hydrated, well nourished.. Skin: Skin color, texture, turgor normal, no suspicious rashes or lesions. Head: Normocephalic, no masses, lesions, tenderness or abnormalities. Eyes: Anicteric sclera. Extraocular movements are intact. . Ears: External ears normal, canals clear. Cerumen Impaction noted, unable to visualize TM's. Nose/Sinuses: Positive findings: mucosa erythematous and swollen. Maxillary sinus tenderness with palpitations. Oropharynx: Lips, mucosa, and tongue normal, teeth and gums normal, oropharynx normal. Neck: Supple, no adenopathy; thyroid symmetric, normal size, no bruits. Lungs: Lungs clear to auscultation. No wheezing, rhonchi, rales. Cough. Heart: RRR without murmur, gallop, or rubs. No ectopy. Extremities: No deformities, edema, skin discoloration, clubbing or cyanosis. Good capillary refill. Peripheral Pulses: Normal, Capillary refill <2secs, strong peripheral pulses, Pulses palpable. Neurologic: Gait normal. Sensation grossly intact. ASSESSMENT/PLAN: 1. Bacterial sinusitis - ICD9: 473.9, 041.9, ICD10: J32.9, B96.89 (primary diagnosis) - Will begin treatment with Doxycycline - Continue supportive care at home - May use OTC cold and cough medication as needed. - DOXYCYCLINE HYCLATE 100 MG TABLET 2. Bronchitis - ICD9: 490, ICD10: J40 - Same plan as #1. 3. Bilateral impacted cerumen - ICD9: 380.4, ICD10: H61.23 - May use OTC debrox. Follow up if no improvement. Discussed treatment plan and patient voices understanding. Patient's questions answered appropriately. Medications and potential side effects were discussed and patient voices understanding. Ligia Kuhn APRN.ORI This note was partially generated using [employer] voice recognition system. Note was reviewed for accuracy. There may be minor misspellings or grammar miscues with [employer] voice recognition. documented in this encounter [facility] 02-29-2024 Note HNO ID: [id number] Author: LIGIA KUHN APRN.ORI Service: ? Author Type: Nurse Practitioner Type: Progress Notes Filed: 02/29/2024 21:10 Note Text: This is a 28 year old male who presents today with: Patient presents with: Head Congestion HISTORY OF PRESENT ILLNESS: Amilcar Odonnell is a 28 year old male. Patient presents with: Head Congestion Here in the office for ongoing sinus symptoms. Saw PCP on 02/23/2024, treated with Z-Grecia for sinusitis and bronchitis.Still having on going sinus congestion and productive cough. Yellow sinus drainage and chest mucus. Taking cold and cough medication as needed. Denies any fever or chills. PAST MEDICAL HISTORY: PAST MEDICAL HISTORY Diagnosis Date Attention deficit disorder with hyperactivity(314.01) 12/28/2007 Depression Esophageal reflux Generalized anxiety disorder GERD (gastroesophageal reflux disease) Migraine with aura POTS (postural orthostatic tachycardia syndrome) Seizures (HCC) Unspecified asthma(493.90) PAST SURGICAL HISTORY Procedure Laterality Date COLONOSCOPY 03/27/2022 COLONOSCOPY SCREENING 06/15/2023 Normal EGD 03/27/2022 EGD 05/25/2023 GERD PAST SURGICAL HISTORY OF TANDA ALLERGIES Rondec [Brompheniramine-Pseudoephedrin] and Sympathomimetic Agents MEDICATIONS Current Outpatient Medications Medication Sig benzonatate (TESSALON PERLE) 100 mg capsule Take 2 capsules by mouth three times a day as needed for up to 10 days. desvenlafaxine ER (PRISTIQ) 50 mg 24 hr tablet Take 1 tablet by mouth once daily. busPIRone (BUSPAR) 15 mg tablet Take 1 tablet by mouth three times a day. brexpiprazole (REXULTI) 1 mg tablet Take 1 tablet by mouth once daily. LORazepam (ATIVAN) 0.5 mg Take 1 tablet by mouth two times a day as needed (severe anxiety symptoms) for up to 30 days. omeprazole (PRILOSEC) 40 mg capsule Take 1 capsule by mouth once daily. ALIGN 4 mg cap Take 1 capsule by mouth once daily midodrine (PROAMITINE) 5 mg tablet Take 1 tablet by mouth three times a day. bisacodyl EC (DULCOLAX, BISACODYL,) 5 mg EC tablet Refer to bowel prep instructions. psyllium husk (KONSYL) 6 gram pwpk packet Take 1 Packet by mouth once daily. ondansetron orally disintegrating (ZOFRAN ODT) 4 mg disintegrating tablet Take 1 tablet by mouth every 6 hours as needed for nausea/vomiting. omega-3 acid ethyl esters (LOVAZA) 1 gram capsule TAKE 1 CAPSULE BY MOUTH ONCE DAILY IN THE AFTERNOON albuterol HFA (PROVENTIL HFA, VENTOLIN HFA) 90 mcg/actuation inhaler Inhale 2 Puffs as instructed every 6 hours as needed. SUMAtriptan (IMITREX) 50 mg tablet Take 1 tablet by mouth as directed. TAKE AT ONSET OF MIGRAINE. MAY REPEAT X 1 IF NEEDED. No current facility-administered medications for this visit. FAMILY HISTORY Problem Relation Age of Onset Anxiety disorder Mother Depression Mother Asthma Father other (adhd) Father other (encephalitis) Maternal Grandfather other (ms) Maternal Grandfather other (cirrhosis) Maternal Grandfather Heart Other MOMS SIDE other (cholesterol) Other dads side Colon Cancer No Family History Social History Tobacco Use Smoking status: Never Smokeless tobacco: Never Tobacco comments: outside Vaping Use Vaping status: Never Used Substance Use Topics Alcohol use: Not Currently Drug use: Not Currently Types: Marijuana REVIEW OF SYSTEMS GENERAL: No weight loss, malaise or fevers/chills HEENT: + Sinus Congestion NECK: Negative for lumps, goiter, pain and significant neck swelling RESPIRATORY: + Cough CARDIOVASCULAR: Negative for chest pain, leg swelling, orthopnea, or palpitations GI: No nausea, vomiting, or diarrhea/constipation. No hematochezia/melena. No heartburn or reflux symptoms. : No history of dysuria, frequency or incontinence MUSCULOSKELETAL: Negative for joint pain or swelling. SKIN: Negative for lesions, rash, and itching ENDOCRINE: Negative for cold or heat intolerance, polyuria, polydipsia and goiter NEURO: No history of headaches, syncope, paralysis, seizures or tremors MOOD: Negative for depression, anxiety, or suicidal ideation. EXAM: BP 120/75 Pulse 105 Ht 182.9 cm (6') Wt 86.2 kg (190 lb) BMI 25.77 kg/m? PHYSICAL EXAM: General Appearance: Well appearing, alert, in no acute distress, well-hydrated, well nourished.. Skin: Skin color, texture, turgor normal, no suspicious rashes or lesions. Head: Normocephalic, no masses, lesions, tenderness or abnormalities. Eyes: Anicteric sclera. Extraocular movements are intact. . Ears: External ears normal, canals clear. Cerumen Impaction noted, unable to visualize TM's. Nose/Sinuses: Positive findings: mucosa erythematous and swollen. Maxillary sinus tenderness with palpitations. Oropharynx: Lips, mucosa, and tongue normal, teeth and gums normal, oropharynx normal. Neck: Supple, no adenopathy; thyroid symmetric, normal size, no bruits. Lungs: Lungs clear to auscultatio (more content not included)... [facility] 02-26-2024 Telephone encounter Note Patient notified of letter to picket labor union, verbalizes understanding of instructions. [facility] 02-26-2024 Miscellaneous Notes Patient notified of letter to picket labor union, verbalizes understanding of instructions. Can you please call the patient back and let him know that his letter is ready for pickup. This will be at the front edger. Thank you. Ligia Kuhn APRN.FRUIT DUMPER Pt calling for a work excuse. He was seen in the office 02-23-24. Pt is asking for the excuse to be from 02-24-24 thru today 02-26-24 and return to work on Thursday02-29-24. 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 Isadora Michel LPN documented in this encounter [facility] 02-26-2024 Telephone encounter Note Can you please call the patient back and let him know that his letter is ready for pickup. This will be at the front edger. Thank you. Ligia Kuhn APRN.FRUIT DUMPER [facility] 02-26-2024 Telephone encounter Note Pt calling for a work excuse. He was seen in the office 02-23-24. Pt is asking for the excuse to be from 02-24-24 thru today 02-26-24 and return to work on Thursday02-29-24. 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 Isadora Michel LPN [facility] 02-23-2024 History of Present illness Narrative Chief Complaint Patient presents with: Follow Up: UC for viral URI and cough HPI Amilcar Odonnell is a 28 year old male who presents here today for UC follow up. Declined flu and covid vaccines. Pt was UC on 02/21/24 for viral URI with cough. His sx included at that time sore throat, cough, nasal congestion and drainage that started 2 days prior. No chest pains, chills, ear pain, RAMOS, myalgia, no fever,SOB or wheezing. He did have have some vomiting due to the post nasal drainage. Did not try to take any OTC medications to tx symptoms. Pt was given Tessallon perles for the cough and advised to continue with symptomatic treatment. Pt states he is not feeling better, thinks his sx are worse. He still has sore throat, congestion, coughing, green yellow drainage, some SOB and wheezing. Has been using OTC Vicks Severe Cold. Tessalon perles are not helping. Did not test for COVID, no one else in home ill. Whole family had Covid 2 months ago. Pt given work note excusing him today. Advised if unable to work tomorrow to call office and we can give him another letter. Past medical history, appointments, medications, allergies reviewed. Previous Medical History PAST MEDICAL HISTORY Diagnosis Date Attention deficit disorder with hyperactivity(314.01) 12/28/2007 Depression Esophageal reflux Generalized anxiety disorder GERD (gastroesophageal reflux disease) Migraine with aura POTS (postural orthostatic tachycardia syndrome) Seizures (HCC) Unspecified asthma(493.90) Previous Surgical History PAST SURGICAL HISTORY Procedure Laterality Date COLONOSCOPY 03/27/2022 COLONOSCOPY SCREENING 06/15/2023 Normal EGD 03/27/2022 EGD 05/25/2023 GERD PAST SURGICAL HISTORY OF T&A Family History FAMILY HISTORY Problem Relation Age of Onset Anxiety disorder Mother Depression Mother Asthma Father other (adhd) Father other (encephalitis) Maternal Grandfather other (ms) Maternal Grandfather other (cirrhosis) Maternal Grandfather Heart Other MOMS SIDE other (cholesterol) Other dads side Colon Cancer No Family History Patient Allergies ALLERGIES Allergen Reactions Rondec [Bromphenira* mom doesn't recall reaction as a baby Sympathomimetic Age* Sudafed Current Medications Current Outpatient Medications on File Prior to Visit Medication Sig benzonatate (TESSALON PERLE) 100 mg capsule Take 2 capsules by mouth three times a day as needed for up to 10 days. desvenlafaxine ER (PRISTIQ) 50 mg 24 hr tablet Take 1 tablet by mouth once daily. busPIRone (BUSPAR) 15 mg tablet Take 1 tablet by mouth three times a day. brexpiprazole (REXULTI) 1 mg tablet Take 1 tablet by mouth once daily. LORazepam (ATIVAN) 0.5 mg Take 1 tablet by mouth two times a day as needed (severe anxiety symptoms) for up to 30 days. omeprazole (PRILOSEC) 40 mg capsule Take 1 capsule by mouth once daily. ALIGN 4 mg cap Take 1 capsule by mouth once daily midodrine (PROAMITINE) 5 mg tablet Take 1 tablet by mouth three times a day. bisacodyl EC (DULCOLAX, BISACODYL,) 5 mg EC tablet Refer to bowel prep instructions. psyllium husk (KONSYL) 6 gram pwpk packet Take 1 Packet by mouth once daily. ondansetron orally disintegrating (ZOFRAN ODT) 4 mg disintegrating tablet Take 1 tablet by mouth every 6 hours as needed for nausea/vomiting. omega-3 acid ethyl esters (LOVAZA) 1 gram capsule TAKE 1 CAPSULE BY MOUTH ONCE DAILY IN THE AFTERNOON albuterol HFA (PROVENTIL HFA, VENTOLIN HFA) 90 mcg/actuation inhaler Inhale 2 Puffs as instructed every 6 hours as needed. SUMAtriptan (IMITREX) 50 mg tablet Take 1 tablet by mouth as directed. TAKE AT ONSET OF MIGRAINE. MAY REPEAT X 1 IF NEEDED. No current facility-administered medications on file prior to visit. Social History Social History Tobacco Use Smoking status: Never Smokeless tobacco: Never Tobacco comments: outside Vaping Use Vaping status: Never Used Substance Use Topics Alcohol use: Not Currently Drug use: Not Currently Types: Marijuana EXAM: BP 120/74 Pulse 88 Temp 36.6 C (97.9 F) (Tympanic) Resp 16 Wt 86.6 kg (190 lb 14.7 oz) BMI 25.89 kg/m General Appearance: mildly ill, congested, coughing. Ears: External ears normal, canals clear. Neck: Supple, no adenopathy; thyroid symmetric, normal size, no bruits. Lungs: Lungs clear to auscultation. No wheezing, rhonchi, rales.. Heart: RRR without murmur, gallop, or rubs. No ectopy. Health Maintenance List Hepatitis C Screening due on 04/10/2024 HIV Screening due on 04/10/2024 Influenza Vaccine(1) due on 09/19/2024 Covid-19 Vaccine(2 - season) due on 02/22/2025 DTaP,Tdap,Td Vaccine(9 - Td or Tdap) due on 11/10/2030 Hepatitis B Vaccine Completed HPV Vaccine Aged Out Data reviewed none ASSESSMENT/PLAN: 1. Bacterial sinusitis - ICD9: 473.9, 041.9, ICD10: J32.9, B96.89 (primary diagnosis) - AZITHROMYCIN 250 MG TABLET 2. Bronchitis - ICD9: 490, ICD10: J40 - AZITHROMYCIN 250 MG TABLET Follow up prn I agree with the Chief Complaint, ROS, and Past Histories independently gathered by the clinical ground crewman aircraft support and the remaining scribed note accurately describes my personal service to the patient. Medical Decision Making: Problems: Low: Acute, uncomplicated illness or injury Risk: Moderate: Drug management Medical Decision Making Level: 3 - Low Yosef Resendez MD The documentation for this note was completed by Jocelin Mcleod MA acting as scribe for Yosef Resendez MD. February 23, 2024 3:21 PM. Jocelin Mcleod MA documented in this encounter [facility] 02-23-2024 Note HNO ID: [id number] Author: YOSEF RESENDEZ MD Service: ? Author Type: Physician Type: Progress Notes Filed: 02/23/2024 17:35 Note Text: Chief Complaint Patient presents with: Follow Up: UC for viral URI and cough HPI Amilcar Odonnell is a 28 year old male who presents here today for UC follow up. Declined flu and covid vaccines. Pt was UC on 02/21/24 for viral URI with cough. His sx included at that time sore throat, cough, nasal congestion and drainage that started 2 days prior. No chest pains, chills, ear pain, RAMOS, myalgia, no fever,SOB or wheezing. He did have have some vomiting due to the post nasal drainage. Did not try to take any OTC medications to tx symptoms. Pt was given Tessallon perles for the cough and advised to continue with symptomatic treatment. Pt states he is not feeling better, thinks his sx are worse. He still has sore throat, congestion, coughing, green yellow drainage, some SOB and wheezing. Has been using OTC Vicks Severe Cold. Tessalon perles are not helping. Did not test for COVID, no one else in home ill. Whole family had Covid 2 months ago. Pt given work note excusing him today. Advised if unable to work tomorrow to call office and we can give him another letter. Past medical history, appointments, medications, allergies reviewed. Previous Medical History PAST MEDICAL HISTORY Diagnosis Date Attention deficit disorder with hyperactivity(314.01) 12/28/2007 Depression Esophageal reflux Generalized anxiety disorder GERD (gastroesophageal reflux disease) Migraine with aura POTS (postural orthostatic tachycardia syndrome) Seizures (HCC) Unspecified asthma(493.90) Previous Surgical History PAST SURGICAL HISTORY Procedure Laterality Date COLONOSCOPY 03/27/2022 COLONOSCOPY SCREENING 06/15/2023 Normal EGD 03/27/2022 EGD 05/25/2023 GERD PAST SURGICAL HISTORY OF [facility] Family History FAMILY HISTORY Problem Relation Age of Onset Anxiety disorder Mother Depression Mother Asthma Father other (adhd) Father other (encephalitis) Maternal Grandfather other (ms) Maternal Grandfather other (cirrhosis) Maternal Grandfather Heart Other MOMS SIDE other (cholesterol) Other dads side Colon Cancer No Family History Patient Allergies ALLERGIES Allergen Reactions Rondec [Bromphenira* mom doesn't recall reaction as a baby Sympathomimetic Age* Sudafed Current Medications Current Outpatient Medications on File Prior to Visit Medication Sig benzonatate (TESSALON PERLE) 100 mg capsule Take 2 capsules by mouth three times a day as needed for up to 10 days. desvenlafaxine ER (PRISTIQ) 50 mg 24 hr tablet Take 1 tablet by mouth once daily. busPIRone (BUSPAR) 15 mg tablet Take 1 tablet by mouth three times a day. brexpiprazole (REXULTI) 1 mg tablet Take 1 tablet by mouth once daily. LORazepam (ATIVAN) 0.5 mg Take 1 tablet by mouth two times a day as needed (severe anxiety symptoms) for up to 30 days. omeprazole (PRILOSEC) 40 mg capsule Take 1 capsule by mouth once daily. ALIGN 4 mg cap Take 1 capsule by mouth once daily midodrine (PROAMITINE) 5 mg tablet Take 1 tablet by mouth three times a day. bisacodyl EC (DULCOLAX, BISACODYL,) 5 mg EC tablet Refer to bowel prep instructions. psyllium husk (KONSYL) 6 gram pwpk packet Take 1 Packet by mouth once daily. ondansetron orally disintegrating (ZOFRAN ODT) 4 mg disintegrating tablet Take 1 tablet by mouth every 6 hours as needed for nausea/vomiting. omega-3 acid ethyl esters (LOVAZA) 1 gram capsule TAKE 1 CAPSULE BY MOUTH ONCE DAILY IN THE AFTERNOON albuterol HFA (PROVENTIL HFA, VENTOLIN HFA) 90 mcg/actuation inhaler Inhale 2 Puffs as instructed every 6 hours as needed. SUMAtriptan (IMITREX) 50 mg tablet Take 1 tablet by mouth as directed. TAKE AT ONSET OF MIGRAINE. MAY REPEAT X 1 IF NEEDED. No current facility-administered medications on file prior to visit. Social History Social History Tobacco Use Smoking status: Never Smokeless tobacco: Never Tobacco comments: outside Vaping Use Vaping status: Never Used Substance Use Topics Alcohol use: Not Currently Drug use: Not Currently Types: Marijuana EXAM: BP 120/74 Pulse 88 Temp 36.6 ?C (97.9 ?F) (Tympanic) Resp 16 Wt 86.6 kg (190 lb 14.7 oz) BMI 25.89 kg/m? General Appearance: mildly ill, congested, coughing. Ears: External ears normal, canals clear. Neck: Supple, no adenopathy; thyroid symmetric, normal size, no bruits. Lungs: Lungs clear to auscultation. No wheezing, rhonchi, rales.. Heart: RRR without murmur, gallop, or rubs. No ectopy. Health Maintenance List Hepatitis C Screening due on 04/10/2024 HIV Screening due on 04/10/2024 Influenza Vaccine(1) due on 09/19/2024 Covid-19 Vaccine(2 - season) due on 02/22/2025 DTaP,Tdap,Td Vaccine(9 - Td or Tdap) due on 11/10/2030 Hepatitis B Vaccine Completed HPV Vaccine Aged Out Data reviewed none ASSESSMENT/PLAN: (more content not included)... [facility] 02-21-2024 Instructions Michela Weeks APRN.ORI - 02/21/2024 12:07 PM EST ASSESSMENT/PLAN: 1. Viral URI with cough - ICD9: 465.9, ICD10: J06.9 - Discussed viral etiology and rationale for treatment. - Symptomatic treatment with prn analgesia - Supportive care with fluids and rest - BENZONATATE 100 MG CAPSULE - Follow-up with your PCP in 3-5 days if symptoms have not improved or sooner if symptoms worsen - Discussed red flags and need for immediate medical evaluation if any occur. - Discussed supportive care treatment with fluids, rest and analgesia. - Discussed expected course of illness Michela Weeks APRN.FRUIT DUMPER Treatment for Viral Upper Respiratory Tract Infections Your body will kill off the virus by itself. Additionally, you can prime your body's immune system. This may help you get better more quickly. Drink lots of fluids Make sure you are eating well Get plenty of rest We do not have any medications that kill off these viruses. Antibiotics are used to treat bacterial infections; however, they are not active against viral infections. There are some things that might help you feel better, though. Vaporizers, humidifiers, hot showers, and hot fluids help open respiratory and sinus passages Cotton Nasal [place] may offer relief of nasal and head congestion Ayad's Vapor Rub may relieve congestion Tylenol and Advil help control fevers and headaches Salt water gargles help relieve sore throats Chloraceptic spray or throat lozenges may also help relieve sore throat symptoms Occasionally, viral infections turn into something more serious. You should see your doctor or return to the Urgent Care if: You have fevers for longer than five days You have fevers above 102 degrees You are still sick after 10 days You have shortness of breath or wheezing After several days you are getting worse rather than better documented in this encounter [facility] 02-21-2024 Note HNO ID: [id number] Author: MICHELA WEEKS APRN.FRUIT DUMPER Service: ? Author Type: Nurse Practitioner Type: Progress Notes Filed: 02/21/2024 12:08 Note Text: Subjective Cough Associated symptoms include sore throat. Pertinent negatives include no chest pain, no chills, no ear pain, no headaches, no myalgias, no shortness of breath and no wheezing. Amilcar Odonnell is a 28 year old male who presents with cough, nasal congestion and drainage, sore throat, for the past 2 days. He has not had a fever. He denies shortness of breath. He has had a lot of post nasal drainage which made him vomit a few times. He has not taken any medication at home for symptoms. Review of Systems Constitutional: Negative for chills, fever and malaise/fatigue. HENT: Positive for congestion and sore throat. Negative for ear pain. Respiratory: Positive for cough and sputum production. Negative for shortness of breath and wheezing. Cardiovascular: Negative for chest pain. Gastrointestinal: Positive for vomiting (due to PND). Negative for diarrhea and nausea. Musculoskeletal: Negative for myalgias. Neurological: Negative for headaches. BP 120/72 Pulse 103 Temp 36.6 ?C (97.9 ?F) (Left Tympanic) Resp 16 Wt 85.9 kg (189 lb 6 oz) SpO2 97% BMI 25.68 kg/m? PAST MEDICAL HISTORY Diagnosis Date Attention deficit disorder with hyperactivity(314.01) 12/28/2007 Depression Esophageal reflux Generalized anxiety disorder GERD (gastroesophageal reflux disease) Migraine with aura POTS (postural orthostatic tachycardia syndrome) Seizures (HCC) Unspecified asthma(493.90) PAST SURGICAL HISTORY Procedure Laterality Date COLONOSCOPY 03/27/2022 COLONOSCOPY SCREENING 06/15/2023 Normal EGD 03/27/2022 EGD 05/25/2023 GERD PAST SURGICAL HISTORY OF [facility] ALLERGIES Rondec [Brompheniramine-Pseudoephedrin] and Sympathomimetic Agents MEDICATIONS desvenlafaxine ER (PRISTIQ) 50 mg 24 hr tablet Take 1 tablet by mouth once daily. busPIRone (BUSPAR) 15 mg tablet Take 1 tablet by mouth three times a day. brexpiprazole (REXULTI) 1 mg tablet Take 1 tablet by mouth once daily. LORazepam (ATIVAN) 0.5 mg Take 1 tablet by mouth two times a day as needed (severe anxiety symptoms) for up to 30 days. omeprazole (PRILOSEC) 40 mg capsule Take 1 capsule by mouth once daily. ALIGN 4 mg cap Take 1 capsule by mouth once daily midodrine (PROAMITINE) 5 mg tablet Take 1 tablet by mouth three times a day. bisacodyl EC (DULCOLAX, BISACODYL,) 5 mg EC tablet Refer to bowel prep instructions. psyllium husk (KONSYL) 6 gram pwpk packet Take 1 Packet by mouth once daily. ondansetron orally disintegrating (ZOFRAN ODT) 4 mg disintegrating tablet Take 1 tablet by mouth every 6 hours as needed for nausea/vomiting. omega-3 acid ethyl esters (LOVAZA) 1 gram capsule TAKE 1 CAPSULE BY MOUTH ONCE DAILY IN THE AFTERNOON albuterol HFA (PROVENTIL HFA, VENTOLIN HFA) 90 mcg/actuation inhaler Inhale 2 Puffs as instructed every 6 hours as needed. SUMAtriptan (IMITREX) 50 mg tablet Take 1 tablet by mouth as directed. TAKE AT ONSET OF MIGRAINE. MAY REPEAT X 1 IF NEEDED. benzonatate (TESSALON PERLE) 100 mg capsule Take 2 capsules by mouth three times a day as needed for up to 10 days. FAMILY HISTORY Problem Relation Age of Onset Anxiety disorder Mother Depression Mother Asthma Father other (adhd) Father other (encephalitis) Maternal Grandfather other (ms) Maternal Grandfather other (cirrhosis) Maternal Grandfather Heart Other MOMS SIDE other (cholesterol) Other dads side Colon Cancer No Family History Social History Tobacco Use Smoking status: Never Smokeless tobacco: Never Tobacco comments: outside Vaping Use Vaping status: Never Used Substance Use Topics Alcohol use: Not Currently Drug use: Not Currently Types: Marijuana Objective Physical Exam Vitals and nursing note reviewed. Constitutional: General: He is not in acute distress. Appearance: Normal appearance. HENT: Right Ear: Tympanic membrane, ear canal and external ear normal. Left Ear: Tympanic membrane, ear canal and external ear normal. Nose: Congestion and rhinorrhea present. Mouth/Throat: Mouth: Mucous membranes are moist. Pharynx: Oropharynx is clear. Uvula midline. No oropharyngeal exudate or posterior oropharyngeal erythema. Cardiovascular: Rate and Rhythm: Normal rate and regular rhythm. Heart sounds: Normal heart sounds. Pulmonary: Effort: Pulmonary effort is normal. No respiratory distress. Breath sounds: Normal breath sounds. No wheezing or rales. Musculoskeletal: Cervical back: Neck supple. Lymphadenopathy: Cervical: No cervical adenopathy. Skin: General: Skin is warm and dry. Findings: No erythema or rash. Neurological: Mental Status: He is alert. ASSESSMENT/PLAN: 1. Viral URI with cough - ICD9: 465.9, ICD10: J06.9 - Discussed viral etiology and rationale for treatment. - Symptom (more content not included)... [facility] 02-21-2024 History of Present illness Narrative Subjective Cough Associated symptoms include sore throat. Pertinent negatives include no chest pain, no chills, no ear pain, no headaches, no myalgias, no shortness of breath and no wheezing. Amilcar Odonnell is a 28 year old male who presents with cough, nasal congestion and drainage, sore throat, for the past 2 days. He has not had a fever. He denies shortness of breath. He has had a lot of post nasal drainage which made him vomit a few times. He has not taken any medication at home for symptoms. Review of Systems Constitutional: Negative for chills, fever and malaise/fatigue. HENT: Positive for congestion and sore throat. Negative for ear pain. Respiratory: Positive for cough and sputum production. Negative for shortness of breath and wheezing. Cardiovascular: Negative for chest pain. Gastrointestinal: Positive for vomiting (due to PND). Negative for diarrhea and nausea. Musculoskeletal: Negative for myalgias. Neurological: Negative for headaches. BP 120/72 Pulse 103 Temp 36.6 C (97.9 F) (Left Tympanic) Resp 16 Wt 85.9 kg (189 lb 6 oz) SpO2 97% BMI 25.68 kg/m PAST MEDICAL HISTORY Diagnosis Date Attention deficit disorder with hyperactivity(314.01) 12/28/2007 Depression Esophageal reflux Generalized anxiety disorder GERD (gastroesophageal reflux disease) Migraine with aura POTS (postural orthostatic tachycardia syndrome) Seizures (HCC) Unspecified asthma(493.90) PAST SURGICAL HISTORY Procedure Laterality Date COLONOSCOPY 03/27/2022 COLONOSCOPY SCREENING 06/15/2023 Normal EGD 03/27/2022 EGD 05/25/2023 GERD PAST SURGICAL HISTORY OF [facility] ALLERGIES Rondec [Brompheniramine-Pseudoephedrin] and Sympathomimetic Agents MEDICATIONS desvenlafaxine ER (PRISTIQ) 50 mg 24 hr tablet Take 1 tablet by mouth once daily. busPIRone (BUSPAR) 15 mg tablet Take 1 tablet by mouth three times a day. brexpiprazole (REXULTI) 1 mg tablet Take 1 tablet by mouth once daily. LORazepam (ATIVAN) 0.5 mg Take 1 tablet by mouth two times a day as needed (severe anxiety symptoms) for up to 30 days. omeprazole (PRILOSEC) 40 mg capsule Take 1 capsule by mouth once daily. ALIGN 4 mg cap Take 1 capsule by mouth once daily midodrine (PROAMITINE) 5 mg tablet Take 1 tablet by mouth three times a day. bisacodyl EC (DULCOLAX, BISACODYL,) 5 mg EC tablet Refer to bowel prep instructions. psyllium husk (KONSYL) 6 gram pwpk packet Take 1 Packet by mouth once daily. ondansetron orally disintegrating (ZOFRAN ODT) 4 mg disintegrating tablet Take 1 tablet by mouth every 6 hours as needed for nausea/vomiting. omega-3 acid ethyl esters (LOVAZA) 1 gram capsule TAKE 1 CAPSULE BY MOUTH ONCE DAILY IN THE AFTERNOON albuterol HFA (PROVENTIL HFA, VENTOLIN HFA) 90 mcg/actuation inhaler Inhale 2 Puffs as instructed every 6 hours as needed. SUMAtriptan (IMITREX) 50 mg tablet Take 1 tablet by mouth as directed. TAKE AT ONSET OF MIGRAINE. MAY REPEAT X 1 IF NEEDED. benzonatate (TESSALON PERLE) 100 mg capsule Take 2 capsules by mouth three times a day as needed for up to 10 days. FAMILY HISTORY Problem Relation Age of Onset Anxiety disorder Mother Depression Mother Asthma Father other (adhd) Father other (encephalitis) Maternal Grandfather other (ms) Maternal Grandfather other (cirrhosis) Maternal Grandfather Heart Other MOMS SIDE other (cholesterol) Other dads side Colon Cancer No Family History Social History Tobacco Use Smoking status: Never Smokeless tobacco: Never Tobacco comments: outside Vaping Use Vaping status: Never Used Substance Use Topics Alcohol use: Not Currently Drug use: Not Currently Types: Marijuana Objective Physical Exam Vitals and nursing note reviewed. Constitutional: General: He is not in acute distress. Appearance: Normal appearance. HENT: Right Ear: Tympanic membrane, ear canal and external ear normal. Left Ear: Tympanic membrane, ear canal and external ear normal. Nose: Congestion and rhinorrhea present. Mouth/Throat: Mouth: Mucous membranes are moist. Pharynx: Oropharynx is clear. Uvula midline. No oropharyngeal exudate or posterior oropharyngeal erythema. Cardiovascular: Rate and Rhythm: Normal rate and regular rhythm. Heart sounds: Normal heart sounds. Pulmonary: Effort: Pulmonary effort is normal. No respiratory distress. Breath sounds: Normal breath sounds. No wheezing or rales. Musculoskeletal: Cervical back: Neck supple. Lymphadenopathy: Cervical: No cervical adenopathy. Skin: General: Skin is warm and dry. Findings: No erythema or rash. Neurological: Mental Status: He is alert. ASSESSMENT/PLAN: 1. Viral URI with cough - ICD9: 465.9, ICD10: J06.9 - Discussed viral etiology and rationale for treatment. - Symptomatic treatment with prn analgesia - Supportive care with fluids and rest - BENZONATATE 100 MG CAPSULE - Follow-up with your PCP in 3-5 days if symptoms have not improved or sooner if symptoms worsen - Discussed red flags and need for immediate medical evaluation if any occur. - Discussed supportive care treatment with fluids, rest and analgesia. - Discussed expected course of illness Michela Weeks APRN.FRUIT DUMPER documented in this encounter [facility] 02-15-2024 Instructions Isha Beckett APRN.ORI - 02/15/2024 1:50 PM EST TREATMENT PLAN: Continue Rexulti at the same dose to address depressive symptoms. Continue Buspar and Pristiq at the same dose to help manage anxiety symptoms. Utilize Ativan as needed to manage severe anxiety episodes. Complete Vitamin D lab work due to history of deficiency. Complete fasting monitoring lab work due to the current combination of his psychiatric medications. Follow up in 3 months or sooner if needed. For those experiencing a suicidal crisis: --call the National Suicide Prevention Lifeline at 988 (877-689-8566) --text the Crisis Text Line (text HOME to 428496) --call 911 and let them know you are having a mental health crisis or go to your nearest Emergency Room for stabilization. --You can also call Mobile Crisis at [phone]. -- You may call the department appointment line at [phone] to schedule your appointment. -- Please call my nurse at [phone] or send me a message in [employer] with any questions or concerns between appointments. documented in this encounter [facility] 02-15-2024 Note HNO ID: [id number] Author: ISHA BECKETT APRN.ORI Service: ? Author Type: Nurse Practitioner Type: Progress Notes Filed: 02/15/2024 13:50 Note Text: FOLLOW UP - PSYCHIATRIC PROGRESS NOTE PATIENT: Amilcar Odonnell DATE: February 15, 2024 Visit Type: Virtual Visit utilizing two-way audio and video for at least a portion of the visit. Consent for virtual visit obtained verbally. Confidentiality limitations with virtual visits reviewed with the patient and guardian, if present, who have accepted the risk verbally prior to proceeding with encounter. I have communicated my name and active licensure. The patient's identity and physical location were verified at the time of this visit. Either the patient or their legal publications sales representative has been informed of the risks and benefits of -- and alternatives to -- treatment through a remote evaluation and consents to proceed with the evaluation remotely. All information is from Patient report except when noted. This evaluation is NOT intended for forensic, disability or child custody purposes. CC: Presenting today for follow up regarding psychiatric medication management. HPI: Treatment Plan from Last Visit on 11/19/2023: TREATMENT PLAN: Restart Rexulti 1 mg to see if that address patient's concerns regarding his depression and anxiety manifesting in irritability. Continue Pristiq at the same dose. Utilize Ativan as needed to manage severe episodes of anxiety. Complete Vitamin D lab work due to history of vitamin D deficiency. Today Amilcar shares that he totally forget to complete the vitamin D lab work. Does have a history of deficiency. He has been consistent in taking the Rexulti. Denies any side effects from Rexulti. A couple days a week, he might still notice some episodes of irritability. Unsure of any particular triggers to this. But the irritability lasts a couple minutes and he is able to cope with it. He is working 10 hour days for 6 days a week. This is their busy season and it ends around March. They are short staffed though and he feels that he is going to have to work these extra hours till April. He has been having to take Ativan once a week to manage anxiety symptoms at work. He is out of the medication. It does help when he takes it. Requested a refill at this appointment. He is able to sleep 7 to 8 hours at night. Continues to struggle with GI issues. Mostly struggling with diarrhea. He is eating consistently. Does eat lunch at work. He has been taking Midodrine to address his POTS symptoms. Continues to take Pristiq and Buspar consistently. Patient hopes that the increase in anxiety is situational and will resolve in a few months. Does not wish to make any medication adjustments at this time. Interval Progress: Slightly worse due to work related stress PATIENT DATA: Generalized Anxiety Disorder Scale (CHARLES-7) 06/26/2023 10/22/2023 02/15/2024 CHARLES - 7 SCORES Score 15 6 7 (0-4) minimal anxiety, (5-9) mild anxiety, (10-14) moderate anxiety, (15-21) severe anxiety Patient Health Questionnaire (PHQ-9) 10/22/2023 11/19/2023 02/15/2024 PHQ-9 Score 7 7 7 (0-4) minimal depression, (5-9) mild depression, (10-14) moderate depression, (15-19) moderately severe depression, (20-27) severe depression PAST MEDICAL HISTORY Diagnosis Date Attention deficit disorder with hyperactivity(314.01) 12/28/2007 Depression Esophageal reflux Generalized anxiety disorder GERD (gastroesophageal reflux disease) Migraine with aura POTS (postural orthostatic tachycardia syndrome) Seizures (HCC) Unspecified asthma(493.90) PAST SURGICAL HISTORY Procedure Laterality Date COLONOSCOPY 03/27/2022 COLONOSCOPY SCREENING 06/15/2023 Normal EGD 03/27/2022 EGD 05/25/2023 GERD PAST SURGICAL HISTORY OF TANDA ALLERGIES Allergen Reactions Rondec [Bromphenira* mom doesn't recall reaction as a baby Sympathomimetic Age* Sudafed Current Outpatient Medications on File Prior to Visit Medication Sig brexpiprazole (REXULTI) 1 mg tablet Take 1 tablet by mouth once daily. desvenlafaxine ER (PRISTIQ) 50 mg 24 hr tablet Take 1 tablet by mouth once daily. omeprazole (PRILOSEC) 40 mg capsule Take 1 capsule by mouth once daily. ALIGN 4 mg cap Take 1 capsule by mouth once daily midodrine (PROAMITINE) 5 mg tablet Take 1 tablet by mouth three times a day. busPIRone (BUSPAR) 15 mg tablet Take 1 tablet by mouth three times a day. polyethylene glycol 3350 (MIRALAX) 17 gram/dose powder Refer to bowel prep instructions. (Patient not taking: Reported on 10/22/2023) bisacodyl EC (DULCOLAX, BISACODYL,) 5 mg EC tablet Refer to bowel prep instructions. psyllium husk (KONSYL) 6 gram pwpk packet Take 1 Packet by mouth once daily. ergocalciferol 50,000 unit capsule (VITAMIN D2, DRISDOL) Take 1 capsule by mouth one time a week. sucralfate (CARAFATE) 1 gram tablet Take 1 tablet by mouth before meals and a (more content not included)... [facility] 02-15-2024 History of Present illness Narrative Images from the original note were not included. FOLLOW UP - PSYCHIATRIC PROGRESS NOTE PATIENT: Amilcar Odonnell DATE: February 15, 2024 Visit Type: Virtual Visit utilizing two-way audio and video for at least a portion of the visit. Consent for virtual visit obtained verbally. Confidentiality limitations with virtual visits reviewed with the patient and guardian, if present, who have accepted the risk verbally prior to proceeding with encounter. I have communicated my name and active licensure. The patient's identity and physical location were verified at the time of this visit. Either the patient or their legal publications sales representative has been informed of the risks and benefits of -- and alternatives to -- treatment through a remote evaluation and consents to proceed with the evaluation remotely. All information is from Patient report except when noted. This evaluation is NOT intended for forensic, disability or child custody purposes. CC: Presenting today for follow up regarding psychiatric medication management. HPI: Treatment Plan from Last Visit on 11/19/2023: TREATMENT PLAN: Restart Rexulti 1 mg to see if that address patient's concerns regarding his depression and anxiety manifesting in irritability. Continue Pristiq at the same dose. Utilize Ativan as needed to manage severe episodes of anxiety. Complete Vitamin D lab work due to history of vitamin D deficiency. Today Amilcar shares that he totally forget to complete the vitamin D lab work. Does have a history of deficiency. He has been consistent in taking the Rexulti. Denies any side effects from Rexulti. A couple days a week, he might still notice some episodes of irritability. Unsure of any particular triggers to this. But the irritability lasts a couple minutes and he is able to cope with it. He is working 10 hour days for 6 days a week. This is their busy season and it ends around March. They are short staffed though and he feels that he is going to have to work these extra hours till April. He has been having to take Ativan once a week to manage anxiety symptoms at work. He is out of the medication. It does help when he takes it. Requested a refill at this appointment. He is able to sleep 7 to 8 hours at night. Continues to struggle with GI issues. Mostly struggling with diarrhea. He is eating consistently. Does eat lunch at work. He has been taking Midodrine to address his POTS symptoms. Continues to take Pristiq and Buspar consistently. Patient hopes that the increase in anxiety is situational and will resolve in a few months. Does not wish to make any medication adjustments at this time. Interval Progress: Slightly worse due to work related stress PATIENT DATA: Generalized Anxiety Disorder Scale (CHARLES-7) 06/26/2023 10/22/2023 02/15/2024 CHARLES - 7 SCORES Score 15 6 7 (0-4) minimal anxiety, (5-9) mild anxiety, (10-14) moderate anxiety, (15-21) severe anxiety Patient Health Questionnaire (PHQ-9) 10/22/2023 11/19/2023 02/15/2024 PHQ-9 Score 7 7 7 (0-4) minimal depression, (5-9) mild depression, (10-14) moderate depression, (15-19) moderately severe depression, (20-27) severe depression PAST MEDICAL HISTORY Diagnosis Date Attention deficit disorder with hyperactivity(314.01) 12/28/2007 Depression Esophageal reflux Generalized anxiety disorder GERD (gastroesophageal reflux disease) Migraine with aura POTS (postural orthostatic tachycardia syndrome) Seizures (HCC) Unspecified asthma(493.90) PAST SURGICAL HISTORY Procedure Laterality Date COLONOSCOPY 03/27/2022 COLONOSCOPY SCREENING 06/15/2023 Normal EGD 03/27/2022 EGD 05/25/2023 GERD PAST SURGICAL HISTORY OF T&A ALLERGIES Allergen Reactions Rondec [Bromphenira* mom doesn't recall reaction as a baby Sympathomimetic Age* Sudafed Current Outpatient Medications on File Prior to Visit Medication Sig brexpiprazole (REXULTI) 1 mg tablet Take 1 tablet by mouth once daily. desvenlafaxine ER (PRISTIQ) 50 mg 24 hr tablet Take 1 tablet by mouth once daily. omeprazole (PRILOSEC) 40 mg capsule Take 1 capsule by mouth once daily. ALIGN 4 mg cap Take 1 capsule by mouth once daily midodrine (PROAMITINE) 5 mg tablet Take 1 tablet by mouth three times a day. busPIRone (BUSPAR) 15 mg tablet Take 1 tablet by mouth three times a day. polyethylene glycol 3350 (MIRALAX) 17 gram/dose powder Refer to bowel prep instructions. (Patient not taking: Reported on 10/22/2023) bisacodyl EC (DULCOLAX, BISACODYL,) 5 mg EC tablet Refer to bowel prep instructions. psyllium husk (KONSYL) 6 gram pwpk packet Take 1 Packet by mouth once daily. ergocalciferol 50,000 unit capsule (VITAMIN D2, DRISDOL) Take 1 capsule by mouth one time a week. sucralfate (CARAFATE) 1 gram tablet Take 1 tablet by mouth before meals and at bedtime. ondansetron orally disintegrating (ZOFRAN ODT) 4 mg disintegrating tablet Take 1 tablet by mouth every 6 hours as needed for nausea/vomiting. omega-3 acid ethyl esters (LOVAZA) 1 gram capsule TAKE 1 CAPSULE BY MOUTH ONCE DAILY IN THE AFTERNOON albuterol HFA (PROVENTIL HFA, VENTOLIN HFA) 90 mcg/actuation inhaler Inhale 2 Puffs as instructed every 6 hours as needed. SUMAtriptan (IMITREX) 50 mg tablet Take 1 tablet by mouth as directed. TAKE AT ONSET OF MIGRAINE. MAY REPEAT X 1 IF NEEDED. No current facility-administered medications on file prior to visit. ROS: See HPI PFSH: See HPI VITAL SIGNS: There were no vitals filed for this visit. Last 3 Encounter BP Readings: Date: BP: 11/23/2023 126/68 06/15/2023 115/77 06/15/2023 109/64 MENTAL STATUS EXAMINATION: Appearance: Casually dressed and groomed Behavior: Behaves appropriately during the encounter Social relatedness: Euthymic Speech/Language: The patient demonstrates appropriate tone, prosody, kamran, phonetics, and syntax Mood: euthymic Affect: Full and appropriate to topic Orientation: Person, Place, Time and Situation Associations: Intact and linear Hallucinations: None Delusions: None Suicidal Ideation: No suicidal ideation, intent or plan. Homicidal Ideation: No homicidal ideation, intent or plan. Insight: Appropriate Judgment: Appropriate DATA REVIEWED: Psychiatric scales, Electronic medical record, Labs, and The PDMP report was reviewed and found to be appropriate without any signs of misuse or diversion. DIAGNOSIS: Charles (generalized anxiety disorder) (primary encounter diagnosis) Encounter for long-term (current) use of medications Vitamin d deficiency Recurrent major depressive disorder, in partial remission (hcc) Psychosocial stressors GAF: -70-61 Some mild symptoms or some difficulty in social, occupational, or school functioning, but generally functioning pretty well. TREATMENT PLAN: Continue Rexulti at the same dose to address depressive symptoms. Continue Buspar and Pristiq at the same dose to help manage anxiety symptoms. Utilize Ativan as needed to manage severe anxiety episodes. Complete Vitamin D lab work due to history of deficiency. Complete fasting monitoring lab work due to the current combination of his psychiatric medications. Follow up in 3 months or sooner if needed. MEDICATION CHANGES: Current medication regimen unchanged. Prescriptions given Patient denies any involuntary movement related side effects. Risks and benefits of the medication, including any black box warnings, were discussed with the patient. Patient is aware to reach out with any questions, concerns, or worsening of symptoms prior to the next appointment. Patient educated on risks of substance use in combination with medications and advised that any substance use along with medications may alter their effectiveness. Follow Up: See Treatment Plan Medical Decision Making: Problems: Moderate: 1+ chronic illnesses with change and 2+ stable chronic illnesses Data: Unique source(s) for external note(s) reviewed: 3+ Unique test result(s) reviewed: 3+ Unique test(s) ordered: 3+ Independent interpretation of test from other physician/QHCP Risk: Moderate: Moderate risk from testing/treatment and Drug management Medical Decision Making Level: 4 - Moderate ADD ON PSYCHOTHERAPY CODE : No SIGNATURE: Isha Beckett APRN.CNP PATIENT NAME: Amilcar Odonnell DATE: February 15, 2024 TIME: 9:04 AM documented in this encounter [facility] 11-24-2023 Telephone encounter Note See Buckrahul message sent [facility] Work Phone: 11-24-2023 Miscellaneous Notes See Buckrahul message sent documented in this encounter [facility] 11-23-2023 Note HNO ID: [id number] Author: PADMINI AMBRIZ PA-C Service: ? Author Type: Physician Agricultural Technical Officer Type: Progress Notes Filed: 11/23/2023 11:56 Note Text: Subjective Amilcar Odonnell is a 28 year old male with a past medical history of migraine and POTS syndrome who presents to express care today for evaluation of cough, nasal congestion, nausea, and vomiting x 1 week. Patient states that his was seen here yesterday and tested positive for COVID-19. He states that he was advised to come in to be tested as well. Review of Systems Constitutional: Negative for chills, diaphoresis and fever. HENT: Positive for congestion. Negative for ear pain and sore throat. Eyes: Negative for discharge and redness. Respiratory: Positive for cough. Negative for shortness of breath. Gastrointestinal: Positive for nausea and vomiting. Skin: Negative for rash. Neurological: Negative for weakness and headaches. All other systems reviewed and are negative. Objective BP 126/68 Pulse 96 Temp 36.3 ?C (97.4 ?F) Resp 16 Wt 81.8 kg (180 lb 5.4 oz) SpO2 98% BMI 24.46 kg/m? Physical Exam Vitals reviewed. Constitutional: General: He is not in acute distress. Appearance: Normal appearance. He is normal weight. He is not ill-appearing or toxic-appearing. Comments: The patient appears to be non-toxic, in no acute distress, and resting comfortably on the table. HENT: Head: Normocephalic and atraumatic. Right Ear: There is impacted cerumen. Left Ear: There is impacted cerumen. Mouth/Throat: Mouth: Mucous membranes are moist. Pharynx: Oropharynx is clear. No oropharyngeal exudate or posterior oropharyngeal erythema. Eyes: Extraocular Movements: Extraocular movements intact. Cardiovascular: Rate and Rhythm: Normal rate and regular rhythm. Heart sounds: Normal heart sounds. No murmur heard. No friction rub. No gallop. Pulmonary: Effort: Pulmonary effort is normal. No respiratory distress. Breath sounds: Normal breath sounds. No wheezing. Musculoskeletal: General: Normal range of motion. Cervical back: Normal range of motion. Skin: General: Skin is warm and dry. Findings: No erythema or rash. Neurological: General: No focal deficit present. Mental Status: He is alert and oriented to person, place, and time. Mental status is at baseline. Psychiatric: Mood and Affect: Mood normal. Behavior: Behavior normal. Thought Content: Thought content normal. Assessment and Plan Suspect patient's symptoms are due to COVID-19 as his tested positive for COVID-19 yesterday. Patient also tested for COVID-19, influenza, and RSV. Advised to continue supportive care at home including ibuprofen and Tylenol and follow-up with primary care as needed. ASSESSMENT/PLAN: 1. Suspected COVID-19 virus infection - ICD9: V01.79, ICD10: Z20.822 (primary diagnosis) 2. Acute cough - ICD9: 786.2, ICD10: R05.1 - COVID AND INFLUENZA A/B AND RSV PCR, ROUTINE 3. Nasal congestion - ICD9: 478.19, ICD10: R09.81 - COVID AND INFLUENZA A/B AND RSV PCR, ROUTINE 4. Nausea and vomiting, unspecified vomiting type - ICD9: 787.01, ICD10: R11.2 - COVID AND INFLUENZA A/B AND RSV PCR, ROUTINE 5. Exposure to COVID-19 virus - ICD9: V01.79, ICD10: Z20.822 - COVID AND INFLUENZA A/B AND RSV PCR, ROUTINE Medical Decision Making: Problems: Low: Acute, uncomplicated illness or injury Risk: Minimal: Minimal risk from testing/treatment Moderate: Drug management Medical Decision Making Level: 3 - Low I spent a total of 20 minutes on the date of the service which included preparing to see the patient, [id number] patient care, completing clinical documentation, performing a medically appropriate examination, counseling and educating the patient/family/caregiver, and ordering medications, tests, or procedures. Padmini Ambriz PA-C [facility] 11-23-2023 History of Present illness Narrative Subjective Amilcar Odonnell is a 28 year old male with a past medical history of migraine and POTS syndrome who [facility] for evaluation of cough, nasal congestion, nausea, and vomiting x 1 week. Patient states that his was seen here yesterday and tested positive for COVID-19. He states that he was advised to come in to be tested as well. Review of Systems Constitutional: Negative for chills, diaphoresis and fever. HENT: Positive for congestion. Negative for ear pain and sore throat. Eyes: Negative for discharge and redness. Respiratory: Positive for cough. Negative for shortness of breath. Gastrointestinal: Positive for nausea and vomiting. Skin: Negative for rash. Neurological: Negative for weakness and headaches. All other systems reviewed and are negative. Objective BP 126/68 Pulse 96 Temp 36.3 C (97.4 F) Resp 16 Wt 81.8 kg (180 lb 5.4 oz) SpO2 98% BMI 24.46 kg/m Physical Exam Vitals reviewed. Constitutional: General: He is not in acute distress. Appearance: Normal appearance. He is normal weight. He is not ill-appearing or toxic-appearing. Comments: The patient appears to be non-toxic, in no acute distress, and resting comfortably on the table. HENT: Head: Normocephalic and atraumatic. Right Ear: There is impacted cerumen. Left Ear: There is impacted cerumen. Mouth/Throat: Mouth: Mucous membranes are moist. Pharynx: Oropharynx is clear. No oropharyngeal exudate or posterior oropharyngeal erythema. Eyes: Extraocular Movements: Extraocular movements intact. Cardiovascular: Rate and Rhythm: Normal rate and regular rhythm. Heart sounds: Normal heart sounds. No murmur heard. No friction rub. No gallop. Pulmonary: Effort: Pulmonary effort is normal. No respiratory distress. Breath sounds: Normal breath sounds. No wheezing. Musculoskeletal: General: Normal range of motion. Cervical back: Normal range of motion. Skin: General: Skin is warm and dry. Findings: No erythema or rash. Neurological: General: No focal deficit present. Mental Status: He is alert and oriented to person, place, and time. Mental status is at baseline. Psychiatric: Mood and Affect: Mood normal. Behavior: Behavior normal. Thought Content: Thought content normal. Assessment and Plan Suspect patient's symptoms are due to COVID-19 as his tested positive for COVID-19 yesterday. Patient also tested for COVID-19, influenza, and RSV. Advised to continue supportive care at home including ibuprofen and Tylenol and follow-up with primary care as needed. ASSESSMENT/PLAN: 1. Suspected COVID-19 virus infection - ICD9: V01.79, ICD10: Z20.822 (primary diagnosis) 2. Acute cough - ICD9: 786.2, ICD10: R05.1 - COVID & INFLUENZA A/B & RSV PCR, ROUTINE 3. Nasal congestion - ICD9: 478.19, ICD10: R09.81 - COVID & INFLUENZA A/B & RSV PCR, ROUTINE 4. Nausea and vomiting, unspecified vomiting type - ICD9: 787.01, ICD10: R11.2 - COVID & INFLUENZA A/B & RSV PCR, ROUTINE 5. Exposure to COVID-19 virus - ICD9: V01.79, ICD10: Z20.822 - COVID & INFLUENZA A/B & RSV PCR, ROUTINE Medical Decision Making: Problems: Low: Acute, uncomplicated illness or injury Risk: Minimal: Minimal risk from testing/treatment Moderate: Drug management Medical Decision Making Level: 3 - Low I spent a total of 20 minutes on the date of the service which included preparing to see the patient, [id number] patient care, completing clinical documentation, performing a medically appropriate examination, counseling and educating the patient/family/caregiver, and ordering medications, tests, or procedures. Padmini Ambriz PA-C documented in this encounter [facility] 11-23-2023 Instructions Padmini Ambriz PA-C - 11/23/2023 11:47 AM EDT How to Manage Common Symptoms Associated [...] Stay well hydrated. Gargle with salt water - mix teaspoon salt with 1 cup of [...] concerning to you. documented in this encounter [facility] 11-19-2023 Instructions Isha Beckett APRN.CNP - 11/19/2023 10:06 AM EDT Vinay Mcmanus, It was good to talk with you today. Below is a summary of the plan that we discussed during your appointment for reference. Of course, if you have any questions or concerns do not hesitate to reach out to me via a message or call. Wale, Isha Beckett APRN.CNP PLAN AND FOLLOW UP: Restart Rexulti 1 mg to see if that address patient's concerns regarding his depression and anxiety manifesting in irritability. Continue Pristiq at the same dose. Utilize Ativan as needed to manage severe episodes of anxiety. Complete Vitamin D lab work due to history of vitamin D deficiency. For those experiencing a suicidal crisis: --call the National Suicide Prevention Lifeline at 988 (576-374-1803) --text the Crisis Text Line (text HOME to 939493) --call 911 and let them know you are having a mental health crisis or go to your nearest Emergency Room for stabilization. --You can also call Mobile Crisis at [phone]. Next appointment: --Schedule in 2 months or sooner if needed -- You may call the department appointment line at [phone] to schedule your appointment. -- Please call my nurse at [phone] or send me a message in [employer] with any questions or concerns between appointments. documented in this encounter [facility] 11-19-2023 Note HNO ID: [id number] Author: ISHA BECKETT APRN.CNP Service: ? Author Type: Nurse Practitioner Type: Progress Notes Filed: 11/19/2023 10:07 Note Text: FOLLOW UP - PSYCHIATRIC PROGRESS NOTE PATIENT: Amilcar Odonnell DATE: November 19, 2023 Visit Type: Virtual Visit utilizing two-way audio and video for at least a portion of the visit. Consent for virtual visit obtained verbally. Confidentiality limitations with virtual visits reviewed with the patient and guardian, if present, who have accepted the risk verbally prior to proceeding with encounter. I have communicated my name and active licensure. The patient's identity and physical location were verified at the time of this visit. Either the patient or their legal publications sales representative has been informed of the risks and benefits of -- and alternatives to -- treatment through a remote evaluation and consents to proceed with the evaluation remotely. All information is from Patient report except when noted. This evaluation is NOT intended for forensic, disability or child custody purposes. CC: Presenting today for follow up regarding psychiatric medication management. HPI: Treatment Plan from Last Visit on 10/22/2023: Discontinue Rexulti as patient stopped taking this medication 1 month ago as not been concerned about worsening of his mood related symptoms. Continue Pristiq at the current dose. Has not utilized Ativan in the last few months and did not request a refill at this time. Complete Vitamin D lab work due to history of deficiency recently. Consider transfer back to primary care team if patient continues to report remission from his symptoms at the next appointment. Today Amilcar shares that its been a little rough. Shares that he has started to notice more irritability in his behavior. Has not been doing well being off the Rexulti. Patient's is also present and shares that patient has been more anxious. Continues to utilize Pristiq and denies any side effects related to that. Did have a situation where he lost his Ativan prescription. Has not been able to get a refill even though this provider sent a refill to the pharmacy 2 weeks ago. Discussed ways of managing that with patient and . Denies any side effects from the Rexulti. Patient and are in agreement to restart the Rexulti. Discussed the importance of staying consistent on taking medications and scheduling appointment. Encouraged patient to reach out to either myself or their primary care team for help if they are not able to get their prescriptions. Interval Progress: Slightly worse PATIENT DATA: Generalized Anxiety Disorder Scale (CHARLES-7) 05/29/2023 06/26/2023 10/22/2023 CHARLES - 7 SCORES Score 9 15 6 (0-4) minimal anxiety, (5-9) mild anxiety, (10-14) moderate anxiety, (15-21) severe anxiety Patient Health Questionnaire (PHQ-9) 06/26/2023 10/22/2023 11/19/2023 PHQ-9 Score 14 7 7 (0-4) minimal depression, (5-9) mild depression, (10-14) moderate depression, (15-19) moderately severe depression, (20-27) severe depression PAST MEDICAL HISTORY 12/28/2007: Attention deficit disorder with hyperactivity(314.01) No date: Depression No date: Esophageal reflux No date: Generalized anxiety disorder No date: GERD (gastroesophageal reflux disease) No date: Migraine with aura No date: POTS (postural orthostatic tachycardia syndrome) No date: Seizures (HCC) No date: Unspecified asthma(493.90) PAST SURGICAL HISTORY 03/27/2022: COLONOSCOPY 06/15/2023: COLONOSCOPY SCREENING Comment: Normal 03/27/2022: EGD 05/25/2023: EGD Comment: GERD No date: PAST SURGICAL HISTORY OF Comment: TANDA ALLERGIES Allergen Reactions Rondec [Bromphenira* mom doesn't recall reaction as a baby Sympathomimetic Age* Sudafed Current Outpatient Medications on File Prior to Visit Medication Sig LORazepam (ATIVAN) 0.5 mg Take 1 tablet by mouth two times a day as needed (severe anxiety symptoms) for up to 30 days. desvenlafaxine ER (PRISTIQ) 50 mg 24 hr tablet Take 1 tablet by mouth once daily. omeprazole (PRILOSEC) 40 mg capsule Take 1 capsule by mouth once daily. ALIGN 4 mg cap Take 1 capsule by mouth once daily midodrine (PROAMITINE) 5 mg tablet Take 1 tablet by mouth three times a day. busPIRone (BUSPAR) 15 mg tablet Take 1 tablet by mouth three times a day. polyethylene glycol 3350 (MIRALAX) 17 gram/dose powder Refer to bowel prep instructions. (Patient not taking: Reported on 10/22/2023) bisacodyl EC (DULCOLAX, BISACODYL,) 5 mg EC tablet Refer to bowel prep instructions. psyllium husk (KONSYL) 6 gram pwpk packet Take 1 Packet by mouth once daily. ergocalciferol 50,000 unit capsule (VITAMIN D2, DRISDOL) Take 1 capsule by mouth one time a week. sucralfate (CARAFATE) 1 gram tablet Take 1 tablet by mouth before meals and at bedtime. ondansetron orally disintegrating (ZOFRAN ODT) 4 mg disintegrating tablet Take 1 tablet by mouth ev (more content not included)... [facility] 11-19-2023 History of Present illness Narrative Images from the original note were not included. FOLLOW UP - PSYCHIATRIC PROGRESS NOTE PATIENT: Amilcar Odonnell DATE: November 19, 2023 Visit Type: Virtual Visit utilizing two-way audio and video for at least a portion of the visit. Consent for virtual visit obtained verbally. Confidentiality limitations with virtual visits reviewed with the patient and guardian, if present, who have accepted the risk verbally prior to proceeding with encounter. I have communicated my name and active licensure. The patient's identity and physical location were verified at the time of this visit. Either the patient or their legal publications sales representative has been informed of the risks and benefits of -- and alternatives to -- treatment through a remote evaluation and consents to proceed with the evaluation remotely. All information is from Patient report except when noted. This evaluation is NOT intended for forensic, disability or child custody purposes. CC: Presenting today for follow up regarding psychiatric medication management. HPI: Treatment Plan from Last Visit on 10/22/2023: Discontinue Rexulti as patient stopped taking this medication 1 month ago as not been concerned about worsening of his mood related symptoms. Continue Pristiq at the current dose. Has not utilized Ativan in the last few months and did not request a refill at this time. Complete Vitamin D lab work due to history of deficiency recently. Consider transfer back to primary care team if patient continues to report remission from his symptoms at the next appointment. Today Amilcar shares that its been a little rough. Shares that he has started to notice more irritability in his behavior. Has not been doing well being off the Rexulti. Patient's is also present and shares that patient has been more anxious. Continues to utilize Pristiq and denies any side effects related to that. Did have a situation where he lost his Ativan prescription. Has not been able to get a refill even though this provider sent a refill to the pharmacy 2 weeks ago. Discussed ways of managing that with patient and . Denies any side effects from the Rexulti. Patient and are in agreement to restart the Rexulti. Discussed the importance of staying consistent on taking medications and scheduling appointment. Encouraged patient to reach out to either myself or their primary care team for help if they are not able to get their prescriptions. Interval Progress: Slightly worse PATIENT DATA: Generalized Anxiety Disorder Scale (CHARLES-7) 05/29/2023 06/26/2023 10/22/2023 CHARLES - 7 SCORES Score 9 15 6 (0-4) minimal anxiety, (5-9) mild anxiety, (10-14) moderate anxiety, (15-21) severe anxiety Patient Health Questionnaire (PHQ-9) 06/26/2023 10/22/2023 11/19/2023 PHQ-9 Score 14 7 7 (0-4) minimal depression, (5-9) mild depression, (10-14) moderate depression, (15-19) moderately severe depression, (20-27) severe depression PAST MEDICAL HISTORY 12/28/2007: Attention deficit disorder with hyperactivity(314.01) No date: Depression No date: Esophageal reflux No date: Generalized anxiety disorder No date: GERD (gastroesophageal reflux disease) No date: Migraine with aura No date: POTS (postural orthostatic tachycardia syndrome) No date: Seizures (HCC) No date: Unspecified asthma(493.90) PAST SURGICAL HISTORY 03/27/2022: COLONOSCOPY 06/15/2023: COLONOSCOPY SCREENING Comment: Normal 03/27/2022: EGD 05/25/2023: EGD Comment: GERD No date: PAST SURGICAL HISTORY OF Comment: T&A ALLERGIES Allergen Reactions Rondec [Bromphenira* mom doesn't recall reaction as a baby Sympathomimetic Age* Sudafed Current Outpatient Medications on File Prior to Visit Medication Sig LORazepam (ATIVAN) 0.5 mg Take 1 tablet by mouth two times a day as needed (severe anxiety symptoms) for up to 30 days. desvenlafaxine ER (PRISTIQ) 50 mg 24 hr tablet Take 1 tablet by mouth once daily. omeprazole (PRILOSEC) 40 mg capsule Take 1 capsule by mouth once daily. ALIGN 4 mg cap Take 1 capsule by mouth once daily midodrine (PROAMITINE) 5 mg tablet Take 1 tablet by mouth three times a day. busPIRone (BUSPAR) 15 mg tablet Take 1 tablet by mouth three times a day. polyethylene glycol 3350 (MIRALAX) 17 gram/dose powder Refer to bowel prep instructions. (Patient not taking: Reported on 10/22/2023) bisacodyl EC (DULCOLAX, BISACODYL,) 5 mg EC tablet Refer to bowel prep instructions. psyllium husk (KONSYL) 6 gram pwpk packet Take 1 Packet by mouth once daily. ergocalciferol 50,000 unit capsule (VITAMIN D2, DRISDOL) Take 1 capsule by mouth one time a week. sucralfate (CARAFATE) 1 gram tablet Take 1 tablet by mouth before meals and at bedtime. ondansetron orally disintegrating (ZOFRAN ODT) 4 mg disintegrating tablet Take 1 tablet by mouth every 6 hours as needed for nausea/vomiting. omega-3 acid ethyl esters (LOVAZA) 1 gram capsule TAKE 1 CAPSULE BY MOUTH ONCE DAILY IN THE AFTERNOON albuterol HFA (PROVENTIL HFA, VENTOLIN HFA) 90 mcg/actuation inhaler Inhale 2 Puffs as instructed every 6 hours as needed. SUMAtriptan (IMITREX) 50 mg tablet Take 1 tablet by mouth as directed. TAKE AT ONSET OF MIGRAINE. MAY REPEAT X 1 IF NEEDED. fluticasone (FLONASE) 50 mcg/actuation nasal spray Use 2 Sprays in each nostril once daily. Rinse mouth after use. (Patient not taking: Reported on 10/22/2023) Current Facility-Administered Medications on File Prior to Visit Medication lidocaine (PF) 10 mg/mL (1 %) 1-2 mg injection (XYLOCAINE) lidocaine (PF) 10 mg/mL (1 %) 1-2 mg injection (XYLOCAINE) lidocaine (PF) 10 mg/mL (1 %) 1-2 mg injection (XYLOCAINE) lactated ringers iv infusion ROS: See HPI PFSH: See HPI VITAL SIGNS: There were no vitals filed for this visit. Last 3 Encounter BP Readings: Date: BP: 06/15/2023 115/77 06/15/2023 109/64 05/25/2023 108/74 MENTAL STATUS EXAMINATION: Appearance: casually dressed and groomed Behavior: shy which is baseline for the patient Social relatedness: anxious Speech/Language: The patient demonstrates appropriate tone, prosody, kamran, phonetics, and syntax Mood: sad and anxious Affect: Full and appropriate to topic Orientation: Person, Place, Time and Situation Associations: Intact and linear Hallucinations: None Delusions: None Suicidal Ideation: No suicidal ideation, intent or plan. Homicidal Ideation: No homicidal ideation, intent or plan. Insight: Appropriate Judgment: Appropriate DATA REVIEWED: Psychiatric scales, Electronic medical record, Labs, and PDMP report. The PDMP report was reviewed and found to be appropriate without any signs of misuse or diversion. DIAGNOSIS: Major depressive disorder, recurrent episode, moderate (hcc) (primary encounter diagnosis) Charles (generalized anxiety disorder) Vitamin d deficiency History of adhd GAF: -60-51 Moderate symptoms or moderate difficulty in social, occupational or school functioning. TREATMENT PLAN: Restart Rexulti 1 mg to see if that address patient's concerns regarding his depression and anxiety manifesting in irritability. Continue Pristiq at the same dose. Utilize Ativan as needed to manage severe episodes of anxiety. Complete Vitamin D lab work due to history of vitamin D deficiency. MEDICATION CHANGES: See above Risks and benefits of the medication, including any black box warnings, were discussed with the patient. Patient is aware to reach out with any questions, concerns, or worsening of symptoms prior to the next appointment. Patient educated on risks of substance use in combination with medications and advised that any substance use along with medications may alter their effectiveness. Follow Up: 2 months I spent a total of 30 minutes on the date of the service which included preparing to see the patient, [id number] patient care, completing clinical documentation, and counseling and educating the patient/family/caregiver, ordering medications/labs, and communication with other health care providers. ADD ON PSYCHOTHERAPY CODE : No SIGNATURE: Isha Beckett APRN.CNP PATIENT NAME: Amilcar Odonnell DATE: November 19, 2023 TIME: 9:30 AM documented in this encounter [facility] 11-06-2023 Telephone encounter Note Tried calling patient earlier pss called office and I advised patient to tell pharmacy what happened which will put claim directly into insurance to see if they can re-bill if not aware to do good rx card Constance De MA [facility] 11-06-2023 Miscellaneous Notes Tried calling patient earlier pss called office and I advised patient to tell pharmacy what happened which will put claim directly into insurance to see if they can re-bill if not aware to do good rx card Constance De MA Please notify patient that both medications have been sent to the pharmacy. Pristiq may be expensive if he has to pay out of pocket. Ask him to use good rx coupon to bring down the cost. He could also try calling the insurance company and see if they will make an exception this one time since he lost the medication. Patient was calling with medication issue as he must of picked up medication on 10/27 from pharmacy and missed placed it , so he was advised to return to the pharmacy and explain this and will have to pay out of pocket. He is also requesting a refill on his Ativan. documented in this encounter [facility] 11-06-2023 Telephone encounter Note Please notify patient that both medications have been sent to the pharmacy. Pristiq may be expensive if he has to pay out of pocket. Ask him to use good rx coupon to bring down the cost. He could also try calling the insurance company and see if they will make an exception this one time since he lost the medication. [facility] 11-06-2023 Telephone encounter Note Patient was calling with medication issue as he must of picked up medication on 10/27 from pharmacy and missed placed it , so he was advised to return to the pharmacy and explain this and will have to pay out of pocket. He is also requesting a refill on his Ativan. [facility] 10-30-2023 Telephone encounter Note OK to refill as ordered Yosef Resendez MD [facility] 10-30-2023 Miscellaneous Notes OK to refill as ordered Yosef Resendez MD Prescription Refill Information The patient has been identified by name and date of : Yes Caregiver verified no other encounters exist for this prescription request: Yes Caregiver confirmed with patient/requestor that no other refills are due, in the near future, with this provider at this time: Yes The last office visit in the department: 05/11/2023 Does the patient have a future office visit with this provider/department: No Requested Prescriptions Pending Prescriptions Disp Refills omeprazole (PRILOSEC) 40 mg capsule 30 capsule 2 Sig: Take 1 capsule by mouth once daily. Jennifer Zhou LPN October 30, 2023 9:48 AM documented in this encounter [facility] 10-30-2023 Telephone encounter Note Prescription Refill Information The patient has been identified by name and date of : Yes Caregiver verified no other encounters exist for this prescription request: Yes Caregiver confirmed with patient/requestor that no other refills are due, in the near future, with this provider at this time: Yes The last office visit in the department: 05/11/2023 Does the patient have a future office visit with this provider/department: No Requested Prescriptions Pending Prescriptions Disp Refills omeprazole (PRILOSEC) 40 mg capsule 30 capsule 2 Sig: Take 1 capsule by mouth once daily. Jennifer Zhou LPN October 30, 2023 9:48 AM [facility] 10-22-2023 Note HNO ID: [id number] Author: ISHA BECKETT APRN.FRUIT DUMPER Service: ? Author Type: Nurse Practitioner Type: Progress Notes Filed: 11/03/2023 00:12 Note Text: FOLLOW UP - PSYCHIATRIC PROGRESS NOTE PATIENT: Amilcar Odonnell DATE: October 22, 2023 Visit Type: Virtual Visit utilizing two-way audio and video for at least a portion of the visit. Consent for virtual visit obtained verbally. Confidentiality limitations with virtual visits reviewed with the patient and guardian, if present, who have accepted the risk verbally prior to proceeding with encounter. I have communicated my name and active licensure. The patient's identity and physical location were verified at the time of this visit. Either the patient or their legal publications sales representative has been informed of the risks and benefits of -- and alternatives to -- treatment through a remote evaluation and consents to proceed with the evaluation remotely. All information is from Patient report except when noted. This evaluation is NOT intended for forensic, disability or child custody purposes. Some elements were copied from the previous note which have been updated where appropriate and reflect current decision making from today October 22, 2023. CC: Presenting today for follow up regarding psychiatric medication management. HPI: Treatment Plan from Last Visit on 06/26/2023: 1. Increase Rexulti to address depressive symptoms. 2. Continue Buspar and Pristiq at the same dose. 3. Utilize Ativan as needed to manage anxiety symptoms. 4. Reach out to primary care to schedule a follow up appointment regarding continued diarrhea and vomiting concerns. Today Amilcar shares that he ran out of the BizArkulti for the past month. I have been so busy with work that I haven't thought about my mood. He has gotten a new job and has been working a lot of hours. 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 Shares that sleep and mood are alright now. Son has not been sleeping well for the last week due to a sinus infection. This has impacted his sleep. Continues to take Pristiq and denies side effects from it. His GI symptoms have improved. No longer vomiting but does have some diarrhea concerns consistently. Has not been able to follow with GI yet. Interval Progress: Improved PATIENT DATA: Generalized Anxiety Disorder Scale (CHARLES-7) 05/29/2023 06/26/2023 10/22/2023 CHARLES - 7 SCORES Score 9 15 6 (0-4) minimal anxiety, (5-9) mild anxiety, (10-14) moderate anxiety, (15-21) severe anxiety Patient Health Questionnaire (PHQ-9) 05/29/2023 06/26/2023 10/22/2023 PHQ-9 Score 8 14 7 (0-4) minimal depression, (5-9) mild depression, (10-14) moderate depression, (15-19) moderately severe depression, (20-27) severe depression PAST MEDICAL HISTORY 12/28/2007: Attention deficit disorder with hyperactivity(314.01) No date: Depression No date: Esophageal reflux No date: Generalized anxiety disorder No date: GERD (gastroesophageal reflux disease) No date: Migraine with aura No date: POTS (postural orthostatic tachycardia syndrome) No date: Seizures (HCC) No date: Unspecified asthma(493.90) PAST SURGICAL HISTORY 03/27/2022: COLONOSCOPY 06/15/2023: COLONOSCOPY SCREENING Comment: Normal 03/27/2022: EGD 05/25/2023: EGD Comment: GERD No date: PAST SURGICAL HISTORY OF Comment: TANDA ALLERGIES Allergen Reactions Rondec [Bromphenira* mom doesn't recall reaction as a baby Sympathomimetic Age* Sudafed Current Outpatient Medications on File Prior to Visit Medication Sig desvenlafaxine ER (PRISTIQ) 50 mg 24 hr tablet Take 1 tablet by mouth once daily. midodrine (PROAMITINE) 5 mg tablet Take 1 tablet by mouth three times a day. omeprazole (PRILOSEC) 40 mg capsule Take 1 capsule by mouth once daily. busPIRone (BUSPAR) 15 mg tablet Take 1 tablet by mouth three times a day. psyllium husk (KONSYL) 6 gram pwpk packet Take 1 Packet by mouth once daily. sucralfate (CARAFATE) 1 gram tablet Take 1 tablet by mouth before meals and at bedtime. ondansetron orally disintegrating (ZOFRAN ODT) 4 mg disintegrating tablet Take 1 tablet by mouth every 6 hours as needed for nausea/vomiting. omega-3 acid ethyl esters (LOVAZA) 1 gram capsule TAKE 1 CAPSULE BY MOUTH ONCE DAILY IN THE AFTERNOON albuterol HFA (PROVENTIL HFA, VENTOLIN HFA) 90 mcg/actuation inhaler Inhale 2 Puffs as instructed every 6 hours as needed. SUMAtriptan (IMITREX) 50 mg tablet Take 1 tablet by mouth as directed. TAKE AT ONSET OF MIGRAINE. MAY REPEAT X 1 IF NEEDED. ALIGN 4 mg cap Take 1 capsule by mouth once daily brexpiprazole (REXULTI) 1 mg tablet Take 1 tablet by mouth once daily. polyethylene glycol 3350 (MIRALAX) 17 gram/dose powder Refer to bowel prep instructions. (Patient not taking: Reported on 10/22/2023) bisacodyl EC (DULCOLAX, BISACODYL,) 5 mg EC tablet Refer to bowel prep instructions. ergocalciferol 50,000 unit c (more content not included)... [facility] 10-22-2023 History of Present illness Narrative Images from the original note were not included. FOLLOW UP - PSYCHIATRIC PROGRESS NOTE PATIENT: Amilcar Odonnell DATE: October 22, 2023 Visit Type: Virtual Visit utilizing two-way audio and video for at least a portion of the visit. Consent for virtual visit obtained verbally. Confidentiality limitations with virtual visits reviewed with the patient and guardian, if present, who have accepted the risk verbally prior to proceeding with encounter. I have communicated my name and active licensure. The patient's identity and physical location were verified at the time of this visit. Either the patient or their legal publications sales representative has been informed of the risks and benefits of -- and alternatives to -- treatment through a remote evaluation and consents to proceed with the evaluation remotely. All information is from Patient report except when noted. This evaluation is NOT intended for forensic, disability or child custody purposes. Some elements were copied from the previous note which have been updated where appropriate and reflect current decision making from today October 22, 2023. CC: Presenting today for follow up regarding psychiatric medication management. HPI: Treatment Plan from Last Visit on 06/26/2023: 1. Increase Rexulti to address depressive symptoms. 2. Continue Buspar and Pristiq at the same dose. 3. Utilize Ativan as needed to manage anxiety symptoms. 4. Reach out to primary care to schedule a follow up appointment regarding continued diarrhea and vomiting concerns. Today Amilcar shares that he ran out of the BizArkulti for the past month. I have been so busy with work that I haven't thought about my mood. He has gotten a new job and has been working a lot of hours. 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 Shares that sleep and mood are alright now. Son has not been sleeping well for the last week due to a sinus infection. This has impacted his sleep. Continues to take Pristiq and denies side effects from it. His GI symptoms have improved. No longer vomiting but does have some diarrhea concerns consistently. Has not been able to follow with GI yet. Interval Progress: Improved PATIENT DATA: Generalized Anxiety Disorder Scale (CHARLES-7) 05/29/2023 06/26/2023 10/22/2023 CHARLES - 7 SCORES Score 9 15 6 (0-4) minimal anxiety, (5-9) mild anxiety, (10-14) moderate anxiety, (15-21) severe anxiety Patient Health Questionnaire (PHQ-9) 05/29/2023 06/26/2023 10/22/2023 PHQ-9 Score 8 14 7 (0-4) minimal depression, (5-9) mild depression, (10-14) moderate depression, (15-19) moderately severe depression, (20-27) severe depression PAST MEDICAL HISTORY 12/28/2007: Attention deficit disorder with hyperactivity(314.01) No date: Depression No date: Esophageal reflux No date: Generalized anxiety disorder No date: GERD (gastroesophageal reflux disease) No date: Migraine with aura No date: POTS (postural orthostatic tachycardia syndrome) No date: Seizures (HCC) No date: Unspecified asthma(493.90) PAST SURGICAL HISTORY 03/27/2022: COLONOSCOPY 06/15/2023: COLONOSCOPY SCREENING Comment: Normal 03/27/2022: EGD 05/25/2023: EGD Comment: GERD No date: PAST SURGICAL HISTORY OF Comment: T&A ALLERGIES Allergen Reactions Rondec [Bromphenira* mom doesn't recall reaction as a baby Sympathomimetic Age* Sudafed Current Outpatient Medications on File Prior to Visit Medication Sig desvenlafaxine ER (PRISTIQ) 50 mg 24 hr tablet Take 1 tablet by mouth once daily. midodrine (PROAMITINE) 5 mg tablet Take 1 tablet by mouth three times a day. omeprazole (PRILOSEC) 40 mg capsule Take 1 capsule by mouth once daily. busPIRone (BUSPAR) 15 mg tablet Take 1 tablet by mouth three times a day. psyllium husk (KONSYL) 6 gram pwpk packet Take 1 Packet by mouth once daily. sucralfate (CARAFATE) 1 gram tablet Take 1 tablet by mouth before meals and at bedtime. ondansetron orally disintegrating (ZOFRAN ODT) 4 mg disintegrating tablet Take 1 tablet by mouth every 6 hours as needed for nausea/vomiting. omega-3 acid ethyl esters (LOVAZA) 1 gram capsule TAKE 1 CAPSULE BY MOUTH ONCE DAILY IN THE AFTERNOON albuterol HFA (PROVENTIL HFA, VENTOLIN HFA) 90 mcg/actuation inhaler Inhale 2 Puffs as instructed every 6 hours as needed. SUMAtriptan (IMITREX) 50 mg tablet Take 1 tablet by mouth as directed. TAKE AT ONSET OF MIGRAINE. MAY REPEAT X 1 IF NEEDED. ALIGN 4 mg cap Take 1 capsule by mouth once daily brexpiprazole (REXULTI) 1 mg tablet Take 1 tablet by mouth once daily. polyethylene glycol 3350 (MIRALAX) 17 gram/dose powder Refer to bowel prep instructions. (Patient not taking: Reported on 10/22/2023) bisacodyl EC (DULCOLAX, BISACODYL,) 5 mg EC tablet Refer to bowel prep instructions. ergocalciferol 50,000 unit capsule (VITAMIN D2, DRISDOL) Take 1 capsule by mouth one time a week. fluticasone (FLONASE) 50 mcg/actuation nasal spray Use 2 Sprays in each nostril once daily. Rinse mouth after use. (Patient not taking: Reported on 10/22/2023) Current Facility-Administered Medications on File Prior to Visit Medication lidocaine (PF) 10 mg/mL (1 %) 1-2 mg injection (XYLOCAINE) lidocaine (PF) 10 mg/mL (1 %) 1-2 mg injection (XYLOCAINE) lidocaine (PF) 10 mg/mL (1 %) 1-2 mg injection (XYLOCAINE) lactated ringers iv infusion ROS: See HPI PFSH: See HPI VITAL SIGNS: There were no vitals filed for this visit. Last 3 Encounter BP Readings: Date: BP: 06/15/2023 115/77 06/15/2023 109/64 05/25/2023 108/74 MENTAL STATUS EXAMINATION: Appearance: Well dressed, well groomed Behavior: Behaves appropriately during the encounter Social relatedness: Euthymic Speech/Language: The patient demonstrates appropriate tone, prosody, kamran, phonetics, and syntax Mood: euthymic Affect: Full and appropriate to topic Orientation: Person, Place, Time and Situation Associations: Intact and linear Hallucinations: None Delusions: None Suicidal Ideation: No suicidal ideation, intent or plan. Homicidal Ideation: No homicidal ideation, intent or plan. Insight: Appropriate Judgment: Appropriate DATA REVIEWED: Psychiatric scales, Electronic medical record, Labs, and PDMP report. PDMP website checked and validated. All prescriptions have been APPROPRIATELY filled. No suspicious activity was identified. 10/22/2023 by Isha Beckett APRN.[employer]ER DIAGNOSIS: Charles (generalized anxiety disorder) Recurrent major depressive disorder, in partial remission (hcc) Vitamin d deficiency (primary encounter diagnosis) GAF: -80-71 If symptoms are present, they are transient and expectable reactions to psychosocial stressors TREATMENT PLAN: Discontinue Rexulti as patient stopped taking this medication 1 month ago as not been concerned about worsening of his mood related symptoms. Continue Pristiq at the current dose. Has not utilized Ativan in the last few months and did not request a refill at this time. Complete Vitamin D lab work due to history of deficiency recently. Consider transfer back to primary care team if patient continues to report remission from his symptoms at the next appointment. MEDICATION CHANGES: See above Risks and benefits of the medication, including any black box warnings, were discussed with the patient. Patient is aware to reach out with any questions, concerns, or worsening of symptoms prior to the next appointment. Patient educated on risks of substance use in combination with medications and advised that any substance use along with medications may alter their effectiveness. Follow Up: 6 months I spent a total of 32 minutes on the date of the service which included preparing to see the patient, [id number] patient care, completing clinical documentation, and counseling and educating the patient/family/caregiver, ordering medications/labs. ADD ON PSYCHOTHERAPY CODE : No SIGNATURE: Isha Beckett APRN.CNP PATIENT NAME: Amilcar Odonnell DATE: October 22, 2023 TIME: 9:43 AM documented in this encounter [facility] 09-29-2023 Telephone encounter Note Attempted to call patient phone was off and voicemail full. Spoke to and asked for patient to call office back. Please see message below can schedule virtually Constance De MA [facility] 09-29-2023 Miscellaneous Notes Attempted to call patient phone was off and voicemail full. Spoke to and asked for patient to call office back. Please see message below can schedule virtually Constance De MA Needs to schedule a follow up visit. Refills will be provided based on when the visit is scheduled to ensure that he has enough medications till the appointment. Prescription Refill Information The patient has been identified by name and date of : Yes Caregiver verified no other encounters exist for this prescription request: Yes Caregiver confirmed with patient/requestor that no other refills are due, in the near future, with this provider at this time: Yes The last office visit in the department: 06/26/23 Does the patient have a future office visit with this provider/department: No Requested Prescriptions Pending Prescriptions Disp Refills brexpiprazole (REXULTI) 1 mg tablet 30 tablet 1 Sig: Take 1 tablet by mouth once daily. Lina Adams September 29, 2023 11:36 AM documented in this encounter [facility] 09-29-2023 Telephone encounter Note Needs to schedule a follow up visit. Refills will be provided based on when the visit is scheduled to ensure that he has enough medications till the appointment. [facility] 09-29-2023 Telephone encounter Note Prescription Refill Information The patient has been identified by name and date of : Yes Caregiver verified no other encounters exist for this prescription request: Yes Caregiver confirmed with patient/requestor that no other refills are due, in the near future, with this provider at this time: Yes The last office visit in the department: 06/26/23 Does the patient have a future office visit with this provider/department: No Requested Prescriptions Pending Prescriptions Disp Refills brexpiprazole (REXULTI) 1 mg tablet 30 tablet 1 Sig: Take 1 tablet by mouth once daily. Lina Adams September 29, 2023 11:36 AM [facility] 08-10-2023 Telephone encounter Note Patient phones requesting refills as follows: Requested Prescriptions Pending Prescriptions Disp Refills ALIGN 4 mg cap [Pharmacy Med Name: Align 4 MG Oral Capsule] 42 capsule 0 Sig: Take 1 capsule by mouth once daily Please review and advise. Karen Chris MA [facility] 08-10-2023 Miscellaneous Notes Patient phones requesting refills as follows: Requested Prescriptions Pending Prescriptions Disp Refills ALIGN 4 mg cap [Pharmacy Med Name: Align 4 MG Oral Capsule] 42 capsule 0 Sig: Take 1 capsule by mouth once daily Please review and advise. Karen Chris MA documented in this encounter [facility] 07-27-2023 Telephone encounter Note The following approved medication requests have been transmitted electronically. Requested Prescriptions Pending Prescriptions Disp Refills omeprazole (PRILOSEC) 40 mg capsule 30 capsule 2 Sig: Take 1 capsule by mouth once daily. Ligia Kuhn APRN.CNP [facility] 07-27-2023 Miscellaneous Notes The following approved medication requests have been transmitted electronically. Requested Prescriptions Pending Prescriptions Disp Refills omeprazole (PRILOSEC) 40 mg capsule 30 capsule 2 Sig: Take 1 capsule by mouth once daily. Ligia Kuhn APRN.FRUIT [employer]ER Patient has been identified by name and date of : Yes, Provider Yosef Resendez MD Date July 27, 2023 Time 8:41 AM Patient phones for refill(s): Requested Prescriptions Pending Prescriptions Disp Refills omeprazole (PRILOSEC) 40 mg capsule 30 capsule 2 Sig: Take 1 capsule by mouth once daily. Date of last office visit in primary care: 05/11/2023 Date of next office visit in primary care: none Please advise. Thank you. Jocelin Mcleod MA. documented in this encounter [facility] 07-27-2023 Telephone encounter Note Patient has been identified by name and date of : Yes, Provider Yosef Resendez MD Date July 27, 2023 Time 8:41 AM Patient phones for refill(s): Requested Prescriptions Pending Prescriptions Disp Refills omeprazole (PRILOSEC) 40 mg capsule 30 capsule 2 Sig: Take 1 capsule by mouth once daily. Date of last office visit in primary care: 05/11/2023 Date of next office visit in primary care: none Please advise. Thank you. Jocelin Mcleod MA. [facility] 07-27-2023 Telephone encounter Note The following approved medication requests have been transmitted electronically. Requested Prescriptions Pending Prescriptions Disp Refills midodrine (PROAMITINE) 5 mg tablet 90 tablet 5 Sig: Take 1 tablet by mouth three times a day. Ligia Kuhn APRN.CNP [facility] 07-27-2023 Miscellaneous Notes The following approved medication requests have been transmitted electronically. Requested Prescriptions Pending Prescriptions Disp Refills midodrine (PROAMITINE) 5 mg tablet 90 tablet 5 Sig: Take 1 tablet by mouth three times a day. Ligia Kuhn APRN.FRUIT [employer]ER Patient has been identified by name and date of : Yes, Provider Yosef Resendez MD Date July 27, 2023 Time 8:36 AM Patient phones for refill(s): Requested Prescriptions Pending Prescriptions Disp Refills midodrine (PROAMITINE) 5 mg tablet 90 tablet 5 Sig: Take 1 tablet by mouth three times a day. Date of last office visit in primary care: 05/11/2023 Date of next office visit in primary care: none Please advise. Thank you. Jocelin Mcleod MA. documented in this encounter [facility] 07-27-2023 Telephone encounter Note Patient has been identified by name and date of : Yes, Provider Yosef Resendez MD Date July 27, 2023 Time 8:36 AM Patient phones for refill(s): Requested Prescriptions Pending Prescriptions Disp Refills midodrine (PROAMITINE) 5 mg tablet 90 tablet 5 Sig: Take 1 tablet by mouth three times a day. Date of last office visit in primary care: 05/11/2023 Date of next office visit in primary care: none Please advise. Thank you. Jocelin Mcleod MA. [facility] 07-08-2023 Miscellaneous Notes Patient notified and voiced his understanding. Attempted to contact pt but was unable to LM due to VM being full. Will try calling pt again. If pt returns call please make him aware letter was completed and faxed in as requested to number below. Licha Samuel MA Letter printed Yosef Resendez MD Patient calls and states that he is starting a new job at [employer]. Patient states that work is needing a letter that patient can work without restrictions due to postural orthostatic tachycardia syndrome. Patient asking if letter can be faxed to [facility] [phone]. Patient states that letter must contain provider's name, title, signature, date, facility, and contact information. Please review and advise, Jessika Trevizo RN documented in this encounter [facility] 06-26-2023 History of Present illness Narrative FOLLOW UP - PSYCHIATRIC PROGRESS NOTE Visit Type:Virtual Visit utilizing two-way audio and video for at least a portion of the visit. Consent for virtual visit obtained verbally. Confidentiality limitations with virtual visits reviewed with the patient and guardian, if present, who have accepted the risk verbally prior to proceeding with encounter. I have communicated my name and active licensure. The patient's identity and physical location were verified at the time of this visit. Either the patient or their legal publications sales representative has been informed of the risks and benefits of -- and alternatives to -- treatment through a remote evaluation and consents to proceed with the evaluation remotely. Reason for Visit: Outpatient follow-up and safety monitoring of previously prescribed psychiatric medication, psychotherapy or other treatment CC: Follow up after decrease in Prisitq dose. HPI: Treatment Plan from last visit on 05/29/2023: 1. Decrease Pristiq to see if it improves his muscle twitching if its is from serotonin overload. 2. Continue Rexulti and Buspar at the same dose. 3. Continue utilizing Ativan as needed to manage overwhelming episodes of anxiety. 4. Overall improvement in both anxiety and depression scores since last visit. Consider a slight increase in Rexulti at the next appointment if patient is tolerating the medication well without other side effects. Today Valdemar shares that today he has been doing okay. He has been feeling more depressed lately. Has stress in his life but sometimes there is no trigger to decreased mood. He has been crying more. He does not feel like doing anything. Feels tired a lot. Reports passive thoughts of not wanting to be here anymore. A few days ago they were happening almost every day. There has not been any muscle twitching since we lowered the dose of Pristiq. He has been feeling more anxious also. Takes Ativan 0.5 mg once every few days. He has been struggling with diarrhea and vomiting. His colonoscopy results were WNL. He has been told to ask about his gall bladder due to his symptoms. Does not have a visit scheduled with his primary care provider yet. Risks and benefits of the medication, including any black box warnings, were discussed with the patient. Interval Progress: Slightly worse PATIENT DATA: Generalized Anxiety Disorder Scale (CHARLES-7) 05/14/2023 05/29/2023 06/26/2023 CHARLES - 7 SCORES Score 17 9 15 (0-4) minimal anxiety, (5-9) mild anxiety, (10-14) moderate anxiety, (15-21) severe anxiety Patient Health Questionnaire (PHQ-9) 05/14/2023 05/29/2023 06/26/2023 PHQ-9 Score 14 8 14 (0-4) minimal depression, (5-9) mild depression, (10-14) moderate depression, (15-19) moderately severe depression, (20-27) severe depression PROMIS Global Health 05/25/2022 11/25/2022 04/10/2023 PROMIS Global Health - (T-Scores - the mean of general population = 50. Five points is a clinically meaningful difference.) Physical T-Score 50.8 50.8 47.7 47.7 Mental T-Score 41.1 38.8 36.3 36.3 PAST MEDICAL HISTORY Diagnosis Date Attention deficit disorder with hyperactivity(314.01) 12/28/2007 Depression Esophageal reflux Generalized anxiety disorder GERD (gastroesophageal reflux disease) Migraine with aura POTS (postural orthostatic tachycardia syndrome) Seizures (HCC) Unspecified asthma(493.90) PAST SURGICAL HISTORY Procedure Laterality Date COLONOSCOPY 03/27/2022 COLONOSCOPY SCREENING 06/15/2023 Normal EGD 03/27/2022 PAST SURGICAL HISTORY OF T&A Current Outpatient Medications Medication Sig Dispense Refill brexpiprazole (REXULTI) 0.5 mg tablet Take 1 tablet by mouth once daily. 30 tablet 0 desvenlafaxine ER (PRISTIQ) 50 mg 24 hr tablet Take 1 tablet by mouth once daily. 30 tablet 1 polyethylene glycol 3350 (MIRALAX) 17 gram/dose powder Refer to bowel prep instructions. 238 g 0 bisacodyl EC (DULCOLAX, BISACODYL,) 5 mg EC tablet Refer to bowel prep instructions. 4 tablet 0 Bifidobacterium Infantis (ALIGN) 4 mg cap Take 1 capsule by mouth once daily. 42 capsule 1 psyllium husk (KONSYL) 6 gram pwpk packet Take 1 Packet by mouth once daily. 30 Each 2 ergocalciferol 50,000 unit capsule (VITAMIN D2, DRISDOL) Take 1 capsule by mouth one time a week. 12 capsule 0 busPIRone (BUSPAR) 15 mg tablet Take 1 tablet by mouth three times a day. 90 tablet 5 midodrine (PROAMITINE) 5 mg tablet Take 1 tablet by mouth three times a day. 90 tablet 5 sucralfate (CARAFATE) 1 gram tablet Take 1 tablet by mouth before meals and at bedtime. 120 tablet 2 ondansetron orally disintegrating (ZOFRAN ODT) 4 mg disintegrating tablet Take 1 tablet by mouth every 6 hours as needed for nausea/vomiting. 30 tablet 3 omega-3 acid ethyl esters (LOVAZA) 1 gram capsule TAKE 1 CAPSULE BY MOUTH ONCE DAILY IN THE AFTERNOON 30 capsule 0 omeprazole (PRILOSEC) 40 mg capsule Take 1 capsule by mouth once daily. 30 capsule 2 albuterol HFA (PROVENTIL HFA, VENTOLIN HFA) 90 mcg/actuation inhaler Inhale 2 Puffs as instructed every 6 hours as needed. 1 Inhaler 5 SUMAtriptan (IMITREX) 50 mg tablet Take 1 tablet by mouth as directed. TAKE AT ONSET OF MIGRAINE. MAY REPEAT X 1 IF NEEDED. 9 tablet 3 fluticasone (FLONASE) 50 mcg/actuation nasal spray Use 2 Sprays in each nostril once daily. Rinse mouth after use. 1 Bottle 5 No current facility-administered medications for this visit. Facility-Administered Medications Ordered in Other Visits Medication Dose Route Frequency Provider Last Rate Last Admin lidocaine (PF) 10 mg/mL (1 %) 1-2 mg injection (XYLOCAINE) 0.1-0.2 mL INTRADERMAL PRN Quyen Martinez MD lidocaine (PF) 10 mg/mL (1 %) 1-2 mg injection (XYLOCAINE) 0.1-0.2 mL INTRADERMAL PRN Quyen Martinez MD lidocaine (PF) 10 mg/mL (1 %) 1-2 mg injection (XYLOCAINE) 0.1-0.2 mL INTRADERMAL PRN Alvaro Hale MD lactated ringers iv infusion 30 mL/hr INTRAVENOUS CONTINUOUS Alvaro Hale MD ROS: See HPI PFSH: See HPI VITAL SIGNS: There were no vitals filed for this visit. MENTAL STATUS EXAM: CONSTITUTIONAL: Casually dressed ORIENTATION: Person, Place, Time and Situation MEMORY: Recent intact, Remote intact, Immediate intact CONCENTRATION: Variable MOOD: depressed and anxious AFFECT: Full and appropriate to topic SPEECH : Clear & distinct LANGUAGE : Normal ASSOCIATIONS: Intact THOUGHT PROCESS : Logical, Coherent, and Rational PROGRESSION : There was no evidence of disturbance in thought perception or progression. FUND OF KNOWLEDGE : Appropriate and Adequate SUICIDE: None HOMICIDE: None DATA REVIEWED: Psychiatric scales, Labs, Electronic medical record, and Magnetic Locater notes DIAGNOSIS: PRIMARY: MDD, recurrent, moderate Secondary : Generalized Anxiety Disorder Other : none GAF: -60-51 Moderate symptoms or moderate difficulty in social, occupational or school functioning. TREATMENT PLAN: 1. Increase Rexulti to address depressive symptoms. 2. Continue Buspar and Pristiq at the same dose. 3. Utilize Ativan as needed to manage anxiety symptoms. 4. Reach out to primary care to schedule a follow up appointment regarding continued diarrhea and vomiting concerns. MEDICATION CHANGES: - Rexulti increased to 1 mg. Patient denies any involuntary movement related side effects. PDMP report was reviewed and found to be appropriate without any signs of misuse or diversion. Follow Up: 4 to 6 weeks I spent a total of 36 minutes on the date of the service which included preparing to see the patient, [id number] patient care, completing clinical documentation, obtaining and/or reviewing separately obtained history, counseling and educating the patient/family/caregiver, ordering medications, tests, or procedures, communicating with other HCPs (not separately reported), independently interpreting results (not separately reported), and communicating results to the patient/family/caregiver. ADD ON PSYCHOTHERAPY CODE : No SIGNATURE: Isha Beckett APRN.ORI PATIENT NAME: Amilcar Odonnell DATE: June 26, 2023 TIME: 10:09 AM documented in this encounter [facility] 06-15-2023 Nurse Note Physician at bedside to speak with patient [facility] 06-15-2023 Nurse Note Physician at bedside to speak with patient documented in this encounter [facility] 06-15-2023 Note Formatting of this n ote might be different from the original. The patient received a copy of Colonoscopy discharge instructions that contain information for how to contact the physician who performed the procedure and when to seek medical care. [facility] 06-15-2023 Miscellaneous Notes The patient received a copy of Colonoscopy discharge instructions that contain information for how to contact the physician who performed the procedure and when to seek medical care. Mylicon 5cc/1000cc sterile water instilled through scope. documented in this encounter [facility] 06-15-2023 History and physical note Endoscopy pre-operative H&P H&P completed prior to the start time of the procedure. IMPRESSION AND PLAN HPI: This is a 27 year old male. For colonoscopy for chronic diarrhea. Pertinent Review of Systems: GI: See HPI All other reviewed and negative other than HPI. PAST MEDICAL HISTORY: PAST MEDICAL HISTORY Diagnosis Date Attention deficit disorder with hyperactivity(314.01) 12/28/2007 Depression Esophageal reflux Generalized anxiety disorder GERD (gastroesophageal reflux disease) Migraine with aura POTS (postural orthostatic tachycardia syndrome) Seizures (HCC) Unspecified asthma(493.90) PAST SURGICAL HISTORY: PAST SURGICAL HISTORY Procedure Laterality Date COLONOSCOPY 03/27/2022 EGD 03/27/2022 PAST SURGICAL HISTORY OF T&A OBJECTIVE: PHYSICAL EXAM: VITALS: BP 117/70 Pulse 68 Temp 36.6 C (97.9 F) (Temporal) Resp 16 Ht 182.9 cm (6') Wt 86.2 kg (190 lb) SpO2 98% BMI 25.77 kg/m General appearance: A&Ox3 Respiratory: Normal chest expansion. No audible wheezes. CVS: No shortness of breath, no extremity edema. Regular pulse. Plan: OK to proceed with endoscopy. SIGNATURE: Quyen Martinez MD PATIENT NAME: Amilcar Odonnell [facility] Work Phone: 06-15-2023 History and physical note Endoscopy pre-operative H&P H&P completed prior to the start time of the procedure. IMPRESSION AND PLAN HPI: This is a 27 year old male. For colonoscopy for chronic diarrhea. Pertinent Review of Systems: GI: See HPI All other reviewed and negative other than HPI. PAST MEDICAL HISTORY: PAST MEDICAL HISTORY Diagnosis Date Attention deficit disorder with hyperactivity(314.01) 12/28/2007 Depression Esophageal reflux Generalized anxiety disorder GERD (gastroesophageal reflux disease) Migraine with aura POTS (postural orthostatic tachycardia syndrome) Seizures (HCC) Unspecified asthma(493.90) PAST SURGICAL HISTORY: PAST SURGICAL HISTORY Procedure Laterality Date COLONOSCOPY 03/27/2022 EGD 03/27/2022 PAST SURGICAL HISTORY OF T&A OBJECTIVE: PHYSICAL EXAM: VITALS: BP 117/70 Pulse 68 Temp 36.6 C (97.9 F) (Temporal) Resp 16 Ht 182.9 cm (6') Wt 86.2 kg (190 lb) SpO2 98% BMI 25.77 kg/m General appearance: A&Ox3 Respiratory: Normal chest expansion. No audible wheezes. CVS: No shortness of breath, no extremity edema. Regular pulse. Plan: OK to proceed with endoscopy. SIGNATURE: Quyen Martinez MD PATIENT NAME: Amilcar Odonnell documented in this encounter [facility] 06-15-2023 Nurse procedure note Mylicon 5cc/1000cc sterile water instilled through scope. [facility] 05-29-2023 History of Present illness Narrative FOLLOW UP - PSYCHIATRIC PROGRESS NOTE Visit Type:Virtual Visit utilizing two-way audio and video for at least a portion of the visit. Consent for virtual visit obtained verbally. Confidentiality limitations with virtual visits reviewed with the patient and guardian, if present, who have accepted the risk verbally prior to proceeding with encounter. I have communicated my name and active licensure. The patient's identity and physical location were verified at the time of this visit. Either the patient or their legal publications sales representative has been informed of the risks and benefits of -- and alternatives to -- treatment through a remote evaluation and consents to proceed with the evaluation remotely. Reason for Visit: Outpatient follow-up and safety monitoring of previously prescribed psychiatric medication, psychotherapy or other treatment CC: Follow up after starting Rexulti HPI: Treatment Plan From Last Appointment on 05/29/2023: 1. Stop Abilify due to side effects. 2. Start Rexulti to address depressive symptoms. 3. Continue Pristiq and Buspar at the same dose. 4. Utilize Ativan as needed to manage severe episodes of anxiety. 5. Utilize Zofran as prescribed by PCP to manage nausea and worsening nausea due to anxiety. Today Valdemar shares that I have been alright. Has noticed that medication changes have been helpful. Shares that he has noticed muscle twitching in his back. The twitching does go away occasionally. Denies stiffness. Has noticed some sweating during the day. Denies any new confusion. has not noticed him twitching. Has been struggling with diarrhea. Some GI concerns are being evaluated currently. Has only used the Ativan once or twice a day since last visit. Noticed he got slightly sleepy. Did help him when he took it last time he was feeling anxious and overwhelmed. Shares that he was struggling with more depressive symptoms last night. He was tired and had work. Had long hours at work. Was missing his family. Risks and benefits of the medication, including any black box warnings, were discussed with the patient. Interval Progress: Slightly improved PATIENT DATA: Generalized Anxiety Disorder Scale (CHARLES-7) CHARLES - 7 SCORES 04/10/2023 05/14/2023 05/29/2023 CHARLES-7 Score 16 17 9 (0-4) minimal anxiety, (5-9) mild anxiety, (10-14) moderate anxiety, (15-21) severe anxiety Patient Health Questionnaire (PHQ-9) PHQ-9 04/10/2023 05/14/2023 05/29/2023 Score 14 14 8 (0-4) minimal depression, (5-9) mild depression, (10-14) moderate depression, (15-19) moderately severe depression, (20-27) severe depression PROMIS Global Health PROMIS Global Health - (T-Scores - the mean of general population = 50. Five points is a clinically meaningful difference.) 11/25/2022 04/10/2023 04/10/2023 Physical T-Score 50.8 47.7 47.7 Mental T-Score 38.8 36.3 36.3 PAST MEDICAL HISTORY Diagnosis Date Attention deficit disorder with hyperactivity(314.01) 12/28/2007 Depression Esophageal reflux Generalized anxiety disorder GERD (gastroesophageal reflux disease) Migraine with aura POTS (postural orthostatic tachycardia syndrome) Seizures (HCC) Unspecified asthma(493.90) PAST SURGICAL HISTORY Procedure Laterality Date COLONOSCOPY 03/27/2022 EGD 03/27/2022 PAST SURGICAL HISTORY OF T&A Current Outpatient Medications Medication Sig Dispense Refill polyethylene glycol 3350 (MIRALAX) 17 gram/dose powder Refer to bowel prep instructions. 238 g 0 bisacodyl EC (DULCOLAX, BISACODYL,) 5 mg EC tablet Refer to bowel prep instructions. 4 tablet 0 LORazepam (ATIVAN) 0.5 mg Take 1 tablet by mouth two times a day as needed (severe anxiety symptoms) for up to 30 days. 15 tablet 0 brexpiprazole (REXULTI) 0.5 mg tablet Take 1 tablet by mouth once daily. 30 tablet 0 Bifidobacterium Infantis (ALIGN) 4 mg cap Take 1 capsule by mouth once daily. 42 capsule 1 psyllium husk (KONSYL) 6 gram pwpk packet Take 1 Packet by mouth once daily. 30 Each 2 ergocalciferol 50,000 unit capsule (VITAMIN D2, DRISDOL) Take 1 capsule by mouth one time a week. 12 capsule 0 desvenlafaxine ER (PRISTIQ) 100 mg 24 hr tablet Take 1 tablet by mouth once daily. 90 tablet 0 busPIRone (BUSPAR) 15 mg tablet Take 1 tablet by mouth three times a day. 90 tablet 5 midodrine (PROAMITINE) 5 mg tablet Take 1 tablet by mouth three times a day. 90 tablet 5 sucralfate (CARAFATE) 1 gram tablet Take 1 tablet by mouth before meals and at bedtime. 120 tablet 2 ondansetron orally disintegrating (ZOFRAN ODT) 4 mg disintegrating tablet Take 1 tablet by mouth every 6 hours as needed for nausea/vomiting. 30 tablet 3 omega-3 acid ethyl esters (LOVAZA) 1 gram capsule TAKE 1 CAPSULE BY MOUTH ONCE DAILY IN THE AFTERNOON 30 capsule 0 omeprazole (PRILOSEC) 40 mg capsule Take 1 capsule by mouth once daily. 30 capsule 2 albuterol HFA (PROVENTIL HFA, VENTOLIN HFA) 90 mcg/actuation inhaler Inhale 2 Puffs as instructed every 6 hours as needed. 1 Inhaler 5 SUMAtriptan (IMITREX) 50 mg tablet Take 1 tablet by mouth as directed. TAKE AT ONSET OF MIGRAINE. MAY REPEAT X 1 IF NEEDED. 9 tablet 3 fluticasone (FLONASE) 50 mcg/actuation nasal spray Use 2 Sprays in each nostril once daily. Rinse mouth after use. 1 Bottle 5 No current facility-administered medications for this visit. Facility-Administered Medications Ordered in Other Visits Medication Dose Route Frequency Provider Last Rate Last Admin lidocaine (PF) 10 mg/mL (1 %) 1-2 mg injection (XYLOCAINE) 0.1-0.2 mL INTRADERMAL PRN Alvaro Hale MD lactated ringers iv infusion 30 mL/hr INTRAVENOUS CONTINUOUS Alvaro Hale MD ROS: See HPI PFSH: See HPI VITAL SIGNS: There were no vitals filed for this visit. MENTAL STATUS EXAM: CONSTITUTIONAL: Casually dressed ORIENTATION: Person, Place, Time and Situation MEMORY: Recent intact, Remote intact, Immediate intact CONCENTRATION: Normal MOOD: sad depressed AFFECT: Blunted and Flat SPEECH : Clear & distinct LANGUAGE : Normal ASSOCIATIONS: Intact THOUGHT PROCESS : Logical, Coherent, and Rational PROGRESSION : There was no evidence of disturbance in thought perception or progression. FUND OF KNOWLEDGE : Appropriate and Adequate SUICIDE: None HOMICIDE: None DATA REVIEWED: Psychiatric scales and Electronic medical record DIAGNOSIS: Generalized Anxiety Disorder MDD, recurrent, moderate Vitamin D deficiency GAF: -60-51 Moderate symptoms or moderate difficulty in social, occupational or school functioning. TREATMENT PLAN: 1. Decrease Pristiq to see if it improves his muscle twitching if its is from serotonin overload. 2. Continue Rexulti and Buspar at the same dose. 3. Continue utilizing Ativan as needed to manage overwhelming episodes of anxiety. 4. Overall improvement in both anxiety and depression scores since last visit. Consider a slight increase in Rexulti at the next appointment if patient is tolerating the medication well without other side effects. MEDICATION CHANGES: Pristiq decreased to 50 mg XR. PDMP report was reviewed and found to be appropriate without any signs of misuse or diversion. Patient did not need a refill for Ativan at this time. Follow Up: 4 weeks or sooner if needed I spent a total of 38 minutes on the date of the service which included preparing to see the patient, [id number] patient care, completing clinical documentation, obtaining and/or reviewing separately obtained history, counseling and educating the patient/family/caregiver, ordering medications, tests, or procedures, communicating with other HCPs (not separately reported), independently interpreting results (not separately reported), and communicating results to the patient/family/caregiver. ADD ON PSYCHOTHERAPY CODE : No SIGNATURE: Isha Beckett APRN.CNP PATIENT NAME: Amilcar Odonnell DATE: May 29, 2023 TIME: 8:41 AM documented in this encounter [facility] 05-25-2023 Nurse Note Physician at bedside. [facility] 05-25-2023 Nurse Note Physician at bedside. Discharge instructions given and patient voices understanding. All questions answered. documented in this encounter [facility] 05-25-2023 Nurse Note Discharge instructions given and patient voices understanding. All questions answered. [facility] 05-25-2023 Anesthesiology Preoperative evaluation and management note HISTORY AND PHYSICAL Amilcar Odonnell, 27 year old male Current history and physical on file: Yes Is a new History and Physical required for today's visit? No Indication for procedure: GERD PROCEDURE(S) SCHEDULED FOR: EGD (Esophagogastroduodenoscopy) with or without biopsies, removal of polyps or lesions, dilation ( any means), treatment of bleeding ( any means), Barrx treatment of Ivan's Esophagus, image tube placement or cryo therapy treatment based on clinical findings. BASELINE BEHAVIOR: Calm BASELINE ORIENTATION: A & O x3 All medications and allergies reviewed: Yes Skin Assessment: Warm dry mucus membranes pink Airway/Respiratory Assessment: Airway: visualization of the uvula- Yes Mouth: opening greater than 2 fingerbreadths- Yes Neck: full range of motion- Yes Breath sounds clear/equal- Yes Cardiac Assessment: Regular rate and rhythm without murmur Abdominal Assessment: Abdomen soft, non-tender, no masses or organomegaly. Sedation Plan: Moderate Additional Comments: None Alvaro Hale MD [facility] Work Phone: 05-25-2023 Miscellaneous Notes HISTORY AND PHYSICAL Amilcar Odonnell, 27 year old male Current history and physical on file: Yes Is a new History and Physical required for today's visit? No Indication for procedure: GERD PROCEDURE(S) SCHEDULED FOR: EGD (Esophagogastroduodenoscopy) with or without biopsies, removal of polyps or lesions, dilation ( any means), treatment of bleeding ( any means), Barrx treatment of Ivan's Esophagus, image tube placement or cryo therapy treatment based on clinical findings. BASELINE BEHAVIOR: Calm BASELINE ORIENTATION: A & O x3 All medications and allergies reviewed: Yes Skin Assessment: Warm dry mucus membranes pink Airway/Respiratory Assessment: Airway: visualization of the uvula- Yes Mouth: opening greater than 2 fingerbreadths- Yes Neck: full range of motion- Yes Breath sounds clear/equal- Yes Cardiac Assessment: Regular rate and rhythm without murmur Abdominal Assessment: Abdomen soft, non-tender, no masses or organomegaly. Sedation Plan: Moderate Additional Comments: None Alvaro Hale MD documented in this encounter [facility] 05-22-2023 Miscellaneous Notes Addended by: ANA RODRIGUEZ on: 05/22/2023 10:49 AM Modules accepted: Orders documented in this encounter [facility] 05-22-2023 Instructions Ana Rodriguez PA-C - 05/22/2023 10:46 AM EST Images from the original note were not included. Bowel Preparation Instructions for: Miralax-Gatorade Preparations IF YOU DO NOT FOLLOW THESE DIRECTIONS, YOUR COLONOSCOPY WILL BE CANCELLED. Amaya Instructions: Your bowel must be empty so that your doctor can clearly view your colon. Follow all of the instructions in this handout EXACTLY as they are written. Do NOT eat any solid food the ENTIRE day before your colonoscopy. Buy your bowel preparation at least 5 days before your colonoscopy. Four (4) Dulcolax laxative tablets containing 5mg of bisacodyl each (NOT Dulcolax stool softener) One (1) 8.3oz. bottle Miralax (238 grams) or generic equivalent 2 x 32oz. Bottles of Gatorade (NOT RED) Diabetic Patients: Use G2 (Gatorade 2) TRANSPORTATION on the Day of Your Exam A responsible adult MUST be present with you at Check In prior to your colonoscopy and REMAIN in the endoscopy area until you are discharged. You are NOT ALLOWED to drive, take a taxi or bus, or leave the Endoscopy Center ALONE. If you do not have a responsible trackless trolley driver (family member or friend) with you to take you home, your exam cannot be done with sedation and will be cancelled. Please bring a list of all of your current medications, including any [id number] medications with you. Medications If you take insulin, diabetic medications or blood thinners such as Coumadin (warfarin), Plavix (clopidogrel), Ticlid (ticlopidine hydrochloride), Agrylin (anagrelide), Xarelto (Rivaroxaban), Pradaxa (Dabigatran), Eliquis (Apixaban), and Effient (Prasugrel). You MUST call the doctors who orders those medicines for instructions on altering the dosage before your colonoscopy. All other medications should be taken the day of the exam with a sip of water including ASPIRIN. Five (5) Days Before Your Colonoscopy Do NOT take medicines that stop diarrhea - such as Imodium, Kaopectate, or Pepto Bismol. Do NOT take fiber supplements - such as Metamucil, Citrucel, or Perdiem. Do NOT take products that contain iron - such as multi-vitamins (the label lists what is in the products). Three (3) Days Before Your Colonoscopy Do NOT eat high-fiber foods - such as popcorn, beans, seeds (flax, sunflower, quinoa), multigrain bread, nuts, salad/vegetables, or fresh and dried fruit. 1 Bowel Preparation Instructions for: Miralax-Gatorade Preparations One (1) Day Before Your Colonoscopy Only drink clear liquids the ENTIRE DAY before your colonoscopy. Do NOT eat any solid foods. Drink at least 8 ounces of clear liquids every hour after waking up. The clear liquids you can drink include: Clear Liquid (NO RED LIQUIDS) DO NOT DRINK Gatorade, Pedialyte or Powerade Clear broth or bouillon Coffee or tea (no milk or non-dairy creamer) Carbonated and non-carbonated soft drinks Danyel-Aid or other fruit flavored drinks Strained fruit juices (no pulp) Jell-O, popsicles, hard candy Water Alcohol Milk or non-dairy creamers Noodles or vegetables in soup Juice with pulp Liquid you cannot see through Do not use tobacco/vaping products Mix 1/2 of Miralax bottle (119 grams) in each 32 ounces of Gatorade bottle until dissolved. Keep cool in the refrigerator. DO NOT ADD ICE. The bowel preparation solution will be consumed in two parts. Part 1 5:00 PM - Evening before your colonoscopy Take 4 Dulcolax tablets. 6 PM - Evening before your colonoscopy Drink 32 oz. of the mixed solution. Drink an 8 oz. glass of bowel preparation every 15 minutes for a total of 4 glasses. Fifteen (15) minutes later, drink an 8 oz. glass of of clear liquids every 15 minutes for a total of 2 glasses. You may continue to drink clear liquids till midnight. Part 2 On the day of your colonoscopy you may drink clear liquids up to (three) 3 hours prior to procedure. 4 1/2 hours before your colonoscopy Take another 32 oz. bottle of mixed solution. Drink an 8 oz. glass of bowel prep every 15 minutes for a total of 4 glasses. Fifteen (15) minutes later, drink an 8 oz. glass of clear liquids every 15 minutes for a total of 2 glasses. You may continue to drink clear liquids up to (three) 3 hours before your exam. 2 02/2019 documented in this encounter [facility] 05-20-2023 Miscellaneous Notes Pt notified of results/provider instructions. He verbalized understanding. Graeme Larsen LPN Can you please call the patient and let him know that I reviewed his stool testing results. Stool was negative for parasites, bacteria, or C. difficile. However calprotectin was elevated, this can be a sign of inflammation. I would recommend that he discuss this with his environmental control administrator at next follow-up. Please let me know if he has any questions. Thank you. Ligia Kuhn APRN.FRUIT DUMPER documented in this encounter [facility] 05-19-2023 History of Present illness Narrative Radiology Service Progress Note PATIENT NAME: Amilcar Odonnell DATE OF SERVICE: May 19, 2023 TIME: 10:51 AM PATIENT IDENTITY VERIFICATION COMPLETED USING TWO (2) IDENTIFIERS: Name and Date of confirmed by patient verbally. FALL SCREENING: Has the patient had 2 falls in the last year or 1 fall with injury or currently using an Ambulatory Assistive Device (Walker, Cane, Wheelchair, Crutches, etc.)? No PATIENT GENDER DATA: Male PATIENT RELEVANT IMPLANT DATA REVIEWED: Not Applicable PATIENT PRESENTS WITH AN IMPLANTABLE OR ATTACHED TEAMCENTER CONSULTANT: No RADIOLOGY DEPARTMENT: General X-ray: Exam(s) Completed: GI/ Procedure(s): Esophogram with barium contrast PERIPHERAL IV DATA: Not applicable SIGNED BY: RT Tyrone(R) May 19, 2023 10:51 AM documented in this encounter [facility] 05-14-2023 Instructions Isha Beckett APRN.CNP - 05/14/2023 8:36 AM EST Vinay Mcmanus, It was good to talk with you today. Below is a summary of the plan that we discussed during your appointment for reference. Of course, if you have any questions or concerns do not hesitate to reach out to me via a message or call. Wale, Isha Beckett APRN.CNP PLAN AND FOLLOW UP: YOU SHOULD [...] - Call the National Suicide Hotline at 558 - Text 4HOPE to 849 Medications: Continue: Pristiq and Buspar at the same dose. Continue Weekly Vitamin D. Start: Rexulti 0.5 mg - take 1 tablet once daily. Stop: Abilify Use Ativan 0.5 mg up to two times daily if needed for increased feelings of anxiety. Use Zofran to manage nausea related to worsening anxiety Next appointment: --Schedule in 2 weeks or sooner if needed -- You may call the department appointment line at [phone] to schedule your appointment. -- Please call my nurse Ruthie at [phone] or send me a message in [employer] with any questions or concerns between appointments. documented in this encounter [facility] 05-14-2023 History of Present illness Narrative FOLLOW UP - PSYCHIATRIC PROGRESS NOTE Visit Type:Virtual Visit utilizing two-way audio and video for at least a portion of the visit. Consent for virtual visit obtained verbally. Confidentiality limitations with virtual visits reviewed with the patient and guardian, if present, who have accepted the risk verbally prior to proceeding with encounter. I have communicated my name and active licensure. The patient's identity and physical location were verified at the time of this visit. Either the patient or their legal publications sales representative has been informed of the risks and benefits of -- and alternatives to -- treatment through a remote evaluation and consents to proceed with the evaluation remotely. Reason for Visit: Outpatient follow-up and safety monitoring of previously prescribed psychiatric medication, psychotherapy or other treatment CC: Follow up after increase in Pristiq HPI: Treatment plan from last visit on 04/10/2023: 1. Increase Pristiq to address mood and anxiety symptoms. 2. Complete Vitamin D lab work due to history of deficiency and current complaints of fatigue and low moods. 3. Continue Buspar and Abilify at the same dose. 4. Increase Sumrall 3 fatty acid supplement to a higher dose to help with mood and anxiety symptoms. Today Valdemar shares that I am doing okay I guess. Shares that he has been more depressed and anxious lately. Concerned about finances. The finances are worse than they have ever been. was present and shares that he has been throwing up when he gets very anxious. He threw up at work and was sent home. His hours got cut at work. He has been looking for a new job. Has Zofran prescribed and encouraged to use it as needed for nausea before it gets worse His is sick and unable to work. She care of their young son. Has been concerned about side effects related to Abilify. He has noticed a swaying. Twitching in his back. Leg has been bouncing more. Does not feel that it has been as helpful with his depression. In agreement to try Rexulti instead. He has an endoscopy scheduled for the 24 of May. Denies any changes in his appetite. Has been struggling with diarrhea. He is sleeping 8 to 9 hours at night. He has still feels tired in the afternoon. Shares that his dizziness has been okay. Takes the midodrine for his POTS. That has helped significantly. He had a fall 2 days ago. He got up too fast and then fell on the floor. Denies any injuries. Denies any nicotine, marijuana, or alcohol use. Has utilized Ativan in the past without any side effects. Consistent in taking Pristiq and Buspar. Denies any side effects there. Risks and benefits of the medication, including any black box warnings, were discussed with the patient. Interval Progress: Worse PATIENT DATA: Generalized Anxiety Disorder Scale (CHARLES-7) CHARLES - 7 SCORES 11/25/2022 04/10/2023 05/14/2023 CHARLES-7 Score 6 16 17 (0-4) minimal anxiety, (5-9) mild anxiety, (10-14) moderate anxiety, (15-21) severe anxiety Patient Health Questionnaire (PHQ-9) PHQ-9 11/25/2022 04/10/2023 05/14/2023 Score 9 14 14 (0-4) minimal depression, (5-9) mild depression, (10-14) moderate depression, (15-19) moderately severe depression, (20-27) severe depression PROMIS Global Health PROMIS Global Health - (T-Scores - the mean of general population = 50. Five points is a clinically meaningful difference.) 11/25/2022 04/10/2023 04/10/2023 Physical T-Score 50.8 47.7 47.7 Mental T-Score 38.8 36.3 36.3 PAST MEDICAL HISTORY Diagnosis Date Attention deficit disorder with hyperactivity(314.01) 12/28/2007 Depression Esophageal reflux Generalized anxiety disorder GERD (gastroesophageal reflux disease) Migraine with aura POTS (postural orthostatic tachycardia syndrome) Seizures (HCC) Unspecified asthma(493.90) PAST SURGICAL HISTORY Procedure Laterality Date COLONOSCOPY 03/27/2022 EGD 03/27/2022 PAST SURGICAL HISTORY OF T&A Current Outpatient Medications Medication Sig Dispense Refill Bifidobacterium Infantis (ALIGN) 4 mg cap Take 1 capsule by mouth once daily. 42 capsule 1 psyllium husk (KONSYL) 6 gram pwpk packet Take 1 Packet by mouth once daily. 30 Each 2 ergocalciferol 50,000 unit capsule (VITAMIN D2, DRISDOL) Take 1 capsule by mouth one time a week. 12 capsule 0 desvenlafaxine ER (PRISTIQ) 100 mg 24 hr tablet Take 1 tablet by mouth once daily. 90 tablet 0 ARIPiprazole (ABILIFY) 5 mg tablet Take 1 tablet by mouth once daily. 90 tablet 0 busPIRone (BUSPAR) 15 mg tablet Take 1 tablet by mouth three times a day. 90 tablet 5 midodrine (PROAMITINE) 5 mg tablet Take 1 tablet by mouth three times a day. 90 tablet 5 sucralfate (CARAFATE) 1 gram tablet Take 1 tablet by mouth before meals and at bedtime. 120 tablet 2 ondansetron orally disintegrating (ZOFRAN ODT) 4 mg disintegrating tablet Take 1 tablet by mouth every 6 hours as needed for nausea/vomiting. 30 tablet 3 omega-3 acid ethyl esters (LOVAZA) 1 gram capsule TAKE 1 CAPSULE BY MOUTH ONCE DAILY IN THE AFTERNOON 30 capsule 0 omeprazole (PRILOSEC) 40 mg capsule Take 1 capsule by mouth once daily. 30 capsule 2 albuterol HFA (PROVENTIL HFA, VENTOLIN HFA) 90 mcg/actuation inhaler Inhale 2 Puffs as instructed every 6 hours as needed. 1 Inhaler 5 SUMAtriptan (IMITREX) 50 mg tablet Take 1 tablet by mouth as directed. TAKE AT ONSET OF MIGRAINE. MAY REPEAT X 1 IF NEEDED. 9 tablet 3 fluticasone (FLONASE) 50 mcg/actuation nasal spray Use 2 Sprays in each nostril once daily. Rinse mouth after use. 1 Bottle 5 No current facility-administered medications for this visit. ROS: See HPI PFSH: See HPI VITAL SIGNS: There were no vitals filed for this visit. MENTAL STATUS EXAM: CONSTITUTIONAL: Casually dressed ORIENTATION: Person, Place, Time and Situation MEMORY: Recent intact, Remote intact, Immediate intact CONCENTRATION: Normal MOOD: sad AFFECT: Full and appropriate to topic SPEECH : Clear & distinct LANGUAGE : Normal ASSOCIATIONS: Intact THOUGHT PROCESS : Logical, Coherent, and Rational PROGRESSION : There was no evidence of disturbance in thought perception or progression. FUND OF KNOWLEDGE : Appropriate and Adequate SUICIDE: None HOMICIDE: None DATA REVIEWED: Psychiatric scales, Labs, Electronic medical record, and Magnetic Locater notes DIAGNOSIS: Generalized anxiety Disorder MDD, recurrent, moderate Vitamin D deficiency Psychogenic Nausea and Vomiting - related to worsening anxiety GAF: -60-51 Moderate symptoms or moderate difficulty in social, occupational or school functioning. TREATMENT PLAN: 1. Stop Abilify due to side effects. 2. Start Rexulti to address depressive symptoms. 3. Continue Pristiq and Buspar at the same dose. 4. Utilize Ativan as needed to manage severe episodes of anxiety. 5. Utilize Zofran as prescribed by PCP to manage nausea and worsening nausea due to anxiety. MEDICATION CHANGES: - Stop Abilify - Start Rexulti 0.5 mg once daily. - Start Ativan 0.5 mg PRN PDMP report was reviewed and found to be appropriate without any signs of misuse or diversion. Follow Up: 2 weeks I spent a total of 38 minutes on the date of the service which included preparing to see the patient, [id number] patient care, completing clinical documentation, obtaining and/or reviewing separately obtained history, counseling and educating the patient/family/caregiver, ordering medications, tests, or procedures, communicating with other HCPs (not separately reported), independently interpreting results (not separately reported), and communicating results to the patient/family/caregiver. ADD ON PSYCHOTHERAPY CODE : No SIGNATURE: Isha Beckett APRN.CNP PATIENT NAME: Amilcar Odonnell DATE: May 14, 2023 TIME: 8:00 AM documented in this encounter [facility] 05-13-2023 Miscellaneous Notes Spoke with pt and information listed below given. Pt verbalizes understanding. Isadora Michel LPN Can you please call the patient and let him know I reviewed his lab results. Labs are all relatively normal. Stool testing is pending. keep upcoming appoint with gastroenterology. Please let me know if he has any questions. Thank you. Ligia Kuhn APRN.CNP documented in this encounter [facility] 05-11-2023 Instructions Ligia Kuhn APRN.CNP - 05/11/2023 10:34 AM EST Get labs completed Complete stool testing Recommend eating a bland diet and stay well hydrated May keep a food log with any associated symptoms Keep up coming appointments with GI Follow up pending test results or sooner as needed. Check with pharmacy with prescriptions documented in this encounter [facility] 05-11-2023 History of Present illness Narrative This is a 27 year old male who presents today with: Patient presents with: Follow Up: Stomach meds HISTORY OF PRESENT ILLNESS: Amilcar Odonnell is a 27 year old male. Patient presents with: Follow Up: Stomach meds 1 month follow up. Has been taking Carafate, has had mild improvement. Had evaluation with GI in [place]. Given RX for for psyllium husk and probiotic. Needs to get from pharmacy. Will be having EDG , then will have follow up. Had an episode of vomiting over the weekend. Refers his anxiety has been high, has follow up with psychiatry this week. Has been trying to watch diet. Having on going diarrhea, up to 4 times daily. No heartburn but mild upper abdominal pain. No blood in the vomit or stool. Refers that stool does have a foul smell and at times and mucus. Pt went to [facility] ER on 04/04/23 Had EGD/Colonoscopy done on 03/27/22. POTS - taking Midodrine 5 mg 1 tab po TID. Dizziness has improved with medication. PAST MEDICAL HISTORY: PAST MEDICAL HISTORY Diagnosis Date Attention deficit disorder with hyperactivity(314.01) 12/28/2007 Depression Esophageal reflux Generalized anxiety disorder GERD (gastroesophageal reflux disease) Migraine with aura POTS (postural orthostatic tachycardia syndrome) Seizures (HCC) Unspecified asthma(493.90) PAST SURGICAL HISTORY Procedure Laterality Date COLONOSCOPY 03/27/2022 EGD 03/27/2022 PAST SURGICAL HISTORY OF T&A ALLERGIES Rondec [Brompheniramine-Pseudoephedrin] and Sympathomimetic Agents MEDICATIONS Current Outpatient Medications Medication Sig Bifidobacterium Infantis (ALIGN) 4 mg cap Take 1 capsule by mouth once daily. psyllium husk (KONSYL) 6 gram pwpk packet Take 1 Packet by mouth once daily. ergocalciferol 50,000 unit capsule (VITAMIN D2, DRISDOL) Take 1 capsule by mouth one time a week. desvenlafaxine ER (PRISTIQ) 100 mg 24 hr tablet Take 1 tablet by mouth once daily. ARIPiprazole (ABILIFY) 5 mg tablet Take 1 tablet by mouth once daily. busPIRone (BUSPAR) 15 mg tablet Take 1 tablet by mouth three times a day. midodrine (PROAMITINE) 5 mg tablet Take 1 tablet by mouth three times a day. sucralfate (CARAFATE) 1 gram tablet Take 1 tablet by mouth before meals and at bedtime. ondansetron orally disintegrating (ZOFRAN ODT) 4 mg disintegrating tablet Take 1 tablet by mouth every 6 hours as needed for nausea/vomiting. omega-3 acid ethyl esters (LOVAZA) 1 gram capsule TAKE 1 CAPSULE BY MOUTH ONCE DAILY IN THE AFTERNOON omeprazole (PRILOSEC) 40 mg capsule Take 1 capsule by mouth once daily. albuterol HFA (PROVENTIL HFA, VENTOLIN HFA) 90 mcg/actuation inhaler Inhale 2 Puffs as instructed every 6 hours as needed. SUMAtriptan (IMITREX) 50 mg tablet Take 1 tablet by mouth as directed. TAKE AT ONSET OF MIGRAINE. MAY REPEAT X 1 IF NEEDED. fluticasone (FLONASE) 50 mcg/actuation nasal spray Use 2 Sprays in each nostril once daily. Rinse mouth after use. No current facility-administered medications for this visit. FAMILY HISTORY Problem Relation Age of Onset Anxiety disorder Mother Depression Mother Asthma Father other (adhd) Father other (encephalitis) Maternal Grandfather other (ms) Maternal Grandfather other (cirrhosis) Maternal Grandfather Heart Other MOMS SIDE other (cholesterol) Other dads side Colon Cancer No Family History Social History Tobacco Use Smoking status: Never Smokeless tobacco: Never Tobacco comments: outside Vaping Use Vaping Use: Never used Substance Use Topics Alcohol use: Not Currently Drug use: Not Currently Types: Marijuana REVIEW OF SYSTEMS GENERAL: No weight loss, malaise or fevers/chills HEENT: Negative for frequent or significant headaches, No changes in hearing or vision. NECK: Negative for lumps, goiter, pain and significant neck swelling RESPIRATORY: Negative for cough, hemoptysis, wheezing, dyspnea or shortness of breath CARDIOVASCULAR: Negative for chest pain, leg swelling, orthopnea, or palpitations GI: + Diarrhea, Vomiting, diarrhea, Abdominal pain. : No history of dysuria, frequency or incontinence MUSCULOSKELETAL: Negative for joint pain or swelling. SKIN: Negative for lesions, rash, and itching ENDOCRINE: Negative for cold or heat intolerance, polyuria, polydipsia and goiter NEURO: No history of headaches, syncope, paralysis, seizures or tremors MOOD: Negative for depression, anxiety, or suicidal ideation. EXAM: BP 110/84 Pulse 91 Resp 16 Wt 84.8 kg (187 lb) SpO2 96% BMI 27.62 kg/m PHYSICAL EXAM: General Appearance: Well appearing, alert, in no acute distress, well-hydrated, well nourished. Skin: Skin color, texture, turgor normal, no suspicious rashes or lesions. Head: Normocephalic, no masses, lesions, tenderness or abnormalities. Eyes: Anicteric sclera. Extraocular movements are intact. Lungs: Lungs clear to auscultation. No wheezing, rhonchi, rales. Heart: RRR without murmur, gallop, or rubs. No ectopy. Abdomen: Abdomen soft, non-tender. Bowel sounds normal. No masses, organomegaly. Extremities: No deformities, edema, skin discoloration, clubbing or cyanosis. Good capillary refill. Peripheral Pulses: Normal, Capillary refill <2secs, strong peripheral pulses, Pulses palpable. Neurologic: Gait normal. Sensation grossly intact. ASSESSMENT/PLAN: 1. Diarrhea, unspecified type - ICD9: 787.91, ICD10: R19.7 (primary diagnosis) - Get labs and stool testing completed - Instructed to start probiotic and psyllium husk that was ordered by GI. - Stay well-hydrated, recommend a bland diet. - May keep a food journal with any associated symptoms. - Keep scheduled appointment for EGD. - OVA + PARA MICROSCOPIC - C. DIFFICILE PCR - ENTERIC BACTERIAL PANEL BY PCR - CALPROTECTIN,FECAL - CBC + DIFF - COMP METABOLIC PANEL - LIPASE BLD - AMYLASE BLD 2. POTS (postural orthostatic tachycardia syndrome) - ICD9: 427.89, ICD10: G90.A - Improving, continue to take current medication. Follow-up pending test results or sooner as needed. Discussed treatment plan and patient voices understanding. Patient's questions answered appropriately. Medications and potential side effects were discussed and patient voices understanding. Ligia Kuhn APRN.ORI This note was partially generated using [employer] recognition system. Note was reviewed for accuracy. There may be minor misspellings or grammar miscues with [employer] voice recognition. documented in this encounter [facility] 05-08-2023 History of Present illness Narrative Right before the appointment, patient requested to reschedule the appointment as he forgot about the visit and was not home. documented in this encounter [facility] 05-05-2023 Instructions Ana Rodriguez PA-C - 05/05/2023 3:16 PM EST Images from the original note were not included. - Start Align - Drink around 64 oz water daily - Start daily fibers Gastroesophageal Reflux Disease (GERD) Heartburn is a burning sensation in the center of your chest that often occurs after you eat, bend over, exercise, and sometimes at night when you are lying down. Approximately one in 10 adults has heartburn at least once a week and one in three monthly. Some women experience heartburn almost daily as a result of increased pressure on the abdomen and hormonal changes. Despite its name, heartburn has nothing to do with your heart. Heartburn symptoms indicate a condition called gastroesophageal reflux disease, or GERD. This fact sheet offers some tips on how to relieve heartburn caused by this condition. What is GERD? When you swallow, food passes down your throat and through your esophagus to your stomach. A muscle called the lower esophageal sphincter controls the opening between the esophagus and the stomach. The muscle remains tightly closed except when you swallow food. When this muscle fails to close, the acid-containing contents of the stomach can travel back up into the esophagus. This backward movement is called reflux. When stomach acid enters the lower part of the esophagus, it can produce a burning sensation, commonly referred to as heartburn. Several factors might explain why this reflux action occurs and might offer some clues for relief. The most important are: The position of your body after eating (An upright posture helps prevent reflux.) The size of the meal (Smaller meals reduce reflux.) The nature of foods you consume (Certain substances that irritate the esophagus or weaken the sphincter can cause reflux.) How is GERD treated? To treat GERD, we recommend the following: Raise the head of your bed by six inches to allow gravity to help keep the stomach's contents in the stomach. (Do not use piles of pillows because this puts your body into a bent position that actually aggravates the condition by increasing pressure on the abdomen.) Eat meals at least three to four hours before lying down, and avoid bedtime snacks. Eat moderate portions of food and smaller meals. Maintain a healthy weight to eliminate unnecessary intra-abdominal pressure caused by extra pounds. Limit consumption of fatty foods, chocolate, peppermint, coffee, tea, yousif, and alcohol - all of which relax the lower esophageal sphincter. Also, avoid tomatoes and citrus fruits or juices, which contribute additional acid that can irritate the esophagus. Give up smoking, which also relaxes the lower esophageal sphincter. Wear loose belts and clothing. What if my GERD and heartburn persist? Many people will get relief from heartburn, and the pressure that goes with esophageal reflux, by following the tips above. Wrbh-ubb-gbfrgxe liquid antacids can also help in treating occasional heartburn. If your symptoms persist, do not respond to treatment, or occur often, you need to see a doctor for testing and treatment. A visual examination of the esophagus, known as an endoscopy, might be necessary. Sometimes this test shows that the lining of the esophagus is severely inflamed and irritated by stomach acid. This condition, known as esophagitis, might lead to bleeding and difficulty in swallowing. Medical treatment for this condition might be necessary. This usually involves blocking acid production in the stomach. Aasx-zbp-udirdql medicines, such as Tums , Rolaids , Maalox , Zantac , Tagamet , Prilosec, ,Pepcid , and Axid , can generally relieve esophageal reflux symptoms. Patients with more severe symptoms or those who have been using antacids for more than two weeks should contact their doctors, who can prescribe medicines to control or eliminate acid, such as H2-receptor antagonists and proton pump inhibitors. Only a few people need surgery to correct the disorder. documented in this encounter [facility] 05-05-2023 History of Present illness Narrative CHIEF COMPLAINT: Patient presents with: GERD HPI: Amilcar Odonnell is a 27 year old male who presents for GERD. Admits to chronic GERD sx for the past year. Feels as though sx have worsened in the past 3 mos. On Prilosec 40 mg daily, carafate QID since 03/2023 per PCP with minimal improvement. Pharyngeal dysphagia with pills. One episode of emesis per day. NSAID usage of 1x per week. Bms are multiple per day, formed to loose consistency, no blood/black coloring. Has tried probiotics with minimal relief. Under increased stress, follows with Psychiatry. Denies unintentional weight loss, current abd pain, EtOH, marijuanna. RUQ US 03/2023 Fatty liver EGD/Colon 03/2022 FINAL DIAGNOSIS A. Duodenum, second portion, biopsy: - Duodenal mucosa with no significant histopathologic changes. B. Stomach, antrum, biopsy: - Mild chronic gastritis. C. Esophagogastric junction, biopsy: - Squamous mucosa with features suggestive of reflux esophagitis. D. Colon, random biopsy: - Colonic mucosa with no significant histopathologic changes. Component Latest Ref Rng & Units 04/01/2023 WBC 3.70 - 11.00 k/uL 6.00 RBC 4.20 - 6.00 m/uL 6.20 (H) Hemoglobin 13.0 - 17.0 g/dL 17.1 (H) Hematocrit 39.0 - 51.0 % 51.0 MCV 80.0 - 100.0 fL 82.3 MCH 26.0 - 34.0 pg 27.6 MCHC 30.5 - 36.0 g/dL 33.5 RDW-CV 11.5 - 15.0 % 11.4 (L) Platelet Count 150 - 400 k/uL 218 MPV 9.0 - 12.7 fL 11.2 Neut% % 58.7 Abs Neut (ANC) 1.45 - 7.50 k/uL 3.52 Lymph% % 28.8 Abs Lymph 1.00 - 4.00 k/uL 1.73 Emery% % 6.8 Abs Emery <0.87 k/uL 0.41 Eosin% % 4.5 Abs Eosin <0.46 k/uL 0.27 Baso% % 1.0 Abs Baso <0.11 k/uL 0.06 Immature Gran % % 0.2 IMMATURE GRANS (ABS) <0.10 k/uL <0.03 NRBC /100 WBC 0.0 Absolute nRBC <0.01 k/uL <0.01 DTYPE Auto Protein, Total 6.3 - 8.0 g/dL 7.5 Albumin 3.9 - 4.9 g/dL 4.8 Calcium 8.5 - 10.2 mg/dL 10.1 Bilirubin, Total 0.2 - 1.3 mg/dL 1.0 Alkaline Phosphatase 38 - 113 U/L 59 AST 14 - 40 U/L 27 ALT 10 - 54 U/L 59 (H) Glucose 74 - 99 mg/dL 73 (L) BUN 9 - 24 mg/dL 11 Creatinine 0.73 - 1.22 mg/dL 1.17 Sodium 136 - 144 mmol/L 141 Potassium 3.7 - 5.1 mmol/L 3.9 Chloride 97 - 105 mmol/L 102 CO2 22 - 30 mmol/L 27 Anion Gap 9 - 18 mmol/L 12 eGFR >=60 mL/min/1.73m 87 Lipase 16 - 61 U/L 44 Amylase 30 - 104 U/L 59 Record Review: [facility] / Outside records reviewed. PAST MEDICAL HISTORY Diagnosis Date Attention deficit disorder with hyperactivity(314.01) 12/28/2007 Depression Esophageal reflux Generalized anxiety disorder GERD (gastroesophageal reflux disease) Migraine with aura POTS (postural orthostatic tachycardia syndrome) Seizures (HCC) Unspecified asthma(493.90) PAST SURGICAL HISTORY Procedure Laterality Date COLONOSCOPY 03/27/2022 EGD 03/27/2022 PAST SURGICAL HISTORY OF T&A Allergies: ALLERGIES Allergen Reactions Rondec [Bromphenira* mom doesn't recall reaction as a baby Sympathomimetic Age* Sudafed Medications: ergocalciferol 50,000 unit capsule (VITAMIN D2, DRISDOL) Take 1 capsule by mouth one time a week. desvenlafaxine ER (PRISTIQ) 100 mg 24 hr tablet Take 1 tablet by mouth once daily. ARIPiprazole (ABILIFY) 5 mg tablet Take 1 tablet by mouth once daily. busPIRone (BUSPAR) 15 mg tablet Take 1 tablet by mouth three times a day. midodrine (PROAMITINE) 5 mg tablet Take 1 tablet by mouth three times a day. sucralfate (CARAFATE) 1 gram tablet Take 1 tablet by mouth before meals and at bedtime. ondansetron orally disintegrating (ZOFRAN ODT) 4 mg disintegrating tablet Take 1 tablet by mouth every 6 hours as needed for nausea/vomiting. omega-3 acid ethyl esters (LOVAZA) 1 gram capsule TAKE 1 CAPSULE BY MOUTH ONCE DAILY IN THE AFTERNOON omeprazole (PRILOSEC) 40 mg capsule Take 1 capsule by mouth once daily. albuterol HFA (PROVENTIL HFA, VENTOLIN HFA) 90 mcg/actuation inhaler Inhale 2 Puffs as instructed every 6 hours as needed. fluticasone (FLONASE) 50 mcg/actuation nasal spray Use 2 Sprays in each nostril once daily. Rinse mouth after use. omega-3 fatty acids 1,000 mg cap Take 2 capsules by mouth once daily. diphenoxylate-atropine (LOMOTIL) 2.5-0.025 mg per tablet Take 1 tablet by mouth four times daily as needed for up to 30 days. SUMAtriptan (IMITREX) 50 mg tablet Take 1 tablet by mouth as directed. TAKE AT ONSET OF MIGRAINE. MAY REPEAT X 1 IF NEEDED. FAMILY HISTORY Problem Relation Age of Onset Anxiety disorder Mother Depression Mother Asthma Father other (adhd) Father other (encephalitis) Maternal Grandfather other (ms) Maternal Grandfather other (cirrhosis) Maternal Grandfather Heart Other MOMS SIDE other (cholesterol) Other dads side Colon Cancer No Family History Employer And Job Title: None on file Years Of Education Completed: Not specified Marital Status: Social History Tobacco Use Smoking status: Never Smokeless tobacco: Never Tobacco comments: outside Vaping Use Vaping Use: Never used Substance Use Topics Alcohol use: Not Currently Drug use: Not Currently Types: Marijuana Review of Systems: Review of Systems Gastrointestinal: Positive for abdominal pain, diarrhea, nausea and vomiting. Gas All other systems reviewed and are negative. Are you taking any blood thinners? No Physical Examination: BP 120/78 Pulse 93 Ht 175.3 cm (5' 9) Wt 84.8 kg (187 lb) BMI 27.62 kg/m Physical Exam Constitutional: General: He is not in acute distress. Appearance: Normal appearance. He is normal weight. He is not ill-appearing, toxic-appearing or diaphoretic. HENT: Head: Normocephalic and atraumatic. Nose: Nose normal. Eyes: General: No scleral icterus. Right eye: No discharge. Left eye: No discharge. Extraocular Movements: Extraocular movements intact. Conjunctiva/sclera: Conjunctivae normal. Pupils: Pupils are equal, round, and reactive to light. Cardiovascular: Rate and Rhythm: Normal rate and regular rhythm. Pulses: Normal pulses. Heart sounds: Normal heart sounds. No murmur heard. No friction rub. No gallop. Pulmonary: Effort: No respiratory distress. Breath sounds: Normal breath sounds. No stridor. No wheezing, rhonchi or rales. Chest: Chest wall: No tenderness. Abdominal: General: Abdomen is flat. Bowel sounds are normal. There is no distension. Palpations: Abdomen is soft. There is no mass. Tenderness: There is no abdominal tenderness. There is no right CVA tenderness, left CVA tenderness, guarding or rebound. Hernia: No hernia is present. Musculoskeletal: General: Normal range of motion. Cervical back: Normal range of motion and neck supple. Skin: General: Skin is warm and dry. Neurological: General: No focal deficit present. Mental Status: He is alert and oriented to person, place, and time. Psychiatric: Mood and Affect: Mood normal. Behavior: Behavior normal. Assessment/Plan (K21.00) Gastroesophageal reflux disease with esophagitis without hemorrhage (primary encounter diagnosis) (R13.13) Pharyngeal dysphagia (R19.5) Loose stools 1. Gastroesophageal reflux disease with esophagitis without hemorrhage - EGD DIAGNOSTIC; Future - Continue Prilosec 40 mg daily, carafate QID for now - Discussed GERD precautions and provided edu handout - Due to worsened sx, advised repeat EGD to reassess GERD, h/o reflux esophagitis on last exam 2022 2. Pharyngeal dysphagia - XR ESOPHAGRAM; Future 3. Loose stools - Bifidobacterium Infantis (ALIGN) 4 mg cap; Take 1 capsule by mouth once daily. Dispense: 42 capsule; Refill: 1 - psyllium husk (KONSYL) 6 gram pwpk packet; Take 1 Packet by mouth once daily. Dispense: 30 Each; Refill: 2 - Normal colon w/ random bxs 03/2022, normal duodenal bxs 03/2022 - Start Align, Konsyl - Continue plenty of water/fluid intake I spent a total of 20 minutes on the date of the service which included preparing to see the patient, [id number] patient care, completing clinical documentation, obtaining and/or reviewing separately obtained history, performing a medically appropriate examination, counseling and educating the patient/family/caregiver, ordering medications, tests, or procedures, communicating with other HCPs (not separately reported), independently interpreting results (not separately reported), communicating results to the patient/family/caregiver, and care coordination (not separately reported). Ana Rodriguez PA-C May 05, 2023 3:20 PM documented in this encounter [facility] 04-29-2023 Miscellaneous Notes Patient has been identified by name and date of : Yes, Provider Isha Beckett CNP Date 04/29/23 Time 8:30 am Patient phones for refill(s): Requested Prescriptions Pending Prescriptions Disp Refills omega-3 fatty acids 1,000 mg cap 180 capsule 0 Sig: Take 2 capsules by mouth once daily. Date of last office visit : 04/10/23 Date of next office visit : 05/08/2023 Thank you. Isadora Michel LPN. documented in this encounter [facility] 11-25-2022 History of Present illness Narrative Images [...] dose. Complete vitamin D lab work. Continue Sumrall 3 fatty acid supplement at the same [...] visit. Either the patient or their legal publications sales representative has been informed of the risks and benefits of -- and alternatives to -- treatment through a remote evaluation and consents to proceed with the evaluation remotely. HPI: Amilcar Odonnell is a 27 year old Male with a history of CHARLES and MDD presenting today for follow-up. Date of last visit: 08/04/2022 Plan from last visit: Cross taper from Prozac to Pristiq due to lack of efficacy. Start Vitamin D supplement due to deficiency. Start Sumrall 3 fatty acid supplement to help with [...] is consistent in taking Vitamin D and Sumrall 3. His son has been struggling to [...] HPI PATIENT DATA: Generalized Anxiety Disorder Scale (CHARLES-7) CHARLES - 7 SCORES 07/14/2022 08/04/2022 11/25/2022 CHARLES-7 Score 19 17 6 (0-4) minimal anxiety, [...] which included preparing to see the patient, [id number] patient care, completing clinical documentation, and counseling and educating the patient/family/caregiver, ordering medications/labs. Isha Beckett APRN.ORI November 25, 2022 12:57 PM This note was partially generated using [employer] voice recognition system. Note was reviewed for accuracy. There may be minor misspellings or grammar miscues with [employer] voice recognition. documented in this encounter [facility] 10-30-2022 Miscellaneous Notes Past appt 11/25/22 Future appt 11/25/22 Thanks Jacque Jorgensen documented in this encounter [facility] 09-30-2022 History of Present illness Narrative Images from the original note were not included. This note was created using [employer]. Subjective Amilcar Odonnell is a 27 year old male. HPI [...] FELICITAS Isaacs This note was created using [employer]. Subjective Amilcar Odonnell is a 27 year old male. Review of Systems Objective BP 138/90 Pulse 80 Temp 36.8 C (98.2 F) (Temporal) Resp 18 Wt 92 kg (202 lb 12.8 oz) SpO2 97% BMI 29.95 kg/m Physical Exam Assessment and Plan Problem List Items Addressed This Visit None Visit Diagnoses Strain of thoracic region, initial encounter - Primary documented in this encounter [facility] 09-30-2022 Instructions Cassie Lantigua PA - 09/30/2022 5:30 PM EDT Muscle relaxer as needed for pain. Do not drive while taking this medication as it may cause drowsiness. You may continue Aleve or naproxen as needed for pain. Ice the area. Follow-up with PCP if symptoms do not improve. documented in this encounter [facility] 08-04-2022 Rishabh Beckett APRN.CNP - 08/04/2022 4:05 PM EDT Vinay Mcmanus, It was good to talk with you today. Below is a summary of the plan that we discussed during your appointment for reference. Of course, if you have any questions or concerns do not hesitate to reach out to me via a message or call. Wale, Isha Beckett APRN.CNP PLAN AND FOLLOW UP: YOU SHOULD [...] - Call the National Suicide Hotline at 8-962-HRQLKAQ ( ) or 2-290-660-TALK (5382) - Text 4HOPE to 205131 Medication Update: Prozac 40 mg - take [...] capsule once a week for 3 months. Sumrall 3 fatty acid supplement 1000 mg - take 1 capsule once daily. Next appointment: --Schedule in November. -- You may call the department appointment line at [phone] to schedule your appointment. -- Please call my nurse Ruthie at [phone] or send me a message in [employer] with any questions or concerns between appointments. documented in this encounter [facility] 08-04-2022 History of Present illness Narrative Images [...] Vitamin D supplement due to deficiency. Start Sumrall 3 fatty acid supplement to help with [...] capsule once a week for 3 months. Sumrall 3 fatty acid supplement 1000 mg - [...] visit. Either the patient or their legal publications sales representative has been informed of the risks and benefits of -- and alternatives to -- treatment through a remote evaluation and consents to proceed with the evaluation remotely. HPI: Amilcar Odonnell is a 26 year old Male with a history of CHARLES, MDD, and ADHD presenting today for follow-up. [...] Vitamin D supplement. We also discussed incorporating Sumrall 3 fatty acid supplement to help with [...] HPI PATIENT DATA: Generalized Anxiety Disorder Scale (CHARLES-7) CHARLES - 7 SCORES 05/25/2022 07/14/2022 08/04/2022 CHARLES-7 Score 6 19 17 (0-4) minimal anxiety, [...] which included preparing to see the patient, [id number] patient care, completing clinical documentation, and counseling and educating the patient/family/caregiver, ordering medications/labs, and communicating with other healthcare providers. Isha Beckett APRN.[facility] August 04, 2022 3:37 PM This note was partially generated using [employer] voice recognition system. Note was reviewed for accuracy. There may be minor misspellings or grammar miscues with [employer] voice recognition. documented in this encounter [facility] 07-14-2022 Instructions Isha Beckett APRN.CNP - 07/14/2022 1:33 PM EDT Vinay Mcmanus, It was good to talk with you today. Below is a summary of the plan that we discussed during your appointment for reference. Of course, if you have any questions or concerns do not hesitate to reach out to me via a message or call. Best, Isha Beckett APRN.CNP PLAN AND FOLLOW UP: YOU SHOULD [...] - Call the National Suicide Hotline at 4-491-ZLPWMME ( ) or 8-920-469-TALK (3856) - Text 4HAXG to 784171 Medication Update: Prozac 40 mg - take 1 capsule once daily. Abilify 5 mg - take 1 tablet once daily. Continue Buspar at the same dose. Next appointment: ThursdayAugust 04 at 3:30 pm virtual -- Please call my nurse Ruthie at [phone] or send me a message in [employer] with any questions or concerns between appointments. documented in this encounter [facility] 07-14-2022 History of Present illness Narrative Images [...] visit. Either the patient or their legal publications sales representative has been informed of the risks and benefits of -- and alternatives to -- treatment through a remote evaluation and consents to proceed with the evaluation remotely. HPI: Amilcar Odonnell is a 26 year old Male with a history of CHARLES, MDD, ADHD, and fatigue presenting today for [...] HPI PATIENT DATA: Generalized Anxiety Disorder Scale (CHARLES-7) CHARLES - 7 SCORES 02/24/2022 05/25/2022 07/14/2022 CHARLES-7 Score 6 6 19 (0-4) minimal anxiety, [...] which included preparing to see the patient, [id number] patient care, completing clinical documentation, and counseling and educating the patient/family/caregiver, ordering medications/labs. Isha Beckett APRN.ORI July 14, 2022 1:03 PM This note was partially generated using [employer] voice recognition system. Note was reviewed for accuracy. There may be minor misspellings or grammar miscues with [employer] voice recognition. documented in this encounter [facility] 06-22-2022 Instructions Capo Skinner APRN.ORI - 06/22/2022 9:33 AM EDT GASTROENTERITIS DESCRIPTION: [...] such as tea, flat nic alicia or [place] soda, broth and gelatin. -If liquids are [...] decreased urination, develop. documented in this encounter [facility] 06-22-2022 History of Present illness Narrative Subjective [...] of care. This note was generated using [employer] software. It may contain errors in wording, punctuation, or spelling. Capo Skinner APRN.CNP documented in this encounter [facility] 05-26-2022 Instructions Isha Beckett APRN.CNP - 05/26/2022 11:06 AM EST Vinay Mcmanus, It was good to talk with you today. Below is a summary of the plan that we discussed during your appointment for reference. Of course, if you have any questions or concerns do not hesitate to reach out to me via a message or call. Best, Isha Beckett APRN.CNP PLAN AND FOLLOW UP: YOU SHOULD [...] - Call the National Suicide Hotline at 6-856-AMWEBHK ( ) or 6-210-968-TALK (0897) - Text 9MYOL to 736940 Medication Update: Prozac 40 mg - take [...] may call the department appointment line at [phone] to schedule your appointment. -- Please call my nurse Ruthie at [phone] or send me a message in [employer] with any questions or concerns between appointments. documented in this encounter [facility] 05-26-2022 History of Present illness Narrative Images [...] visit. Either the patient or their legal publications sales representative has been informed of the risks and benefits of -- and alternatives to -- treatment through a remote evaluation and consents to proceed with the evaluation remotely. HPI: Amilcar Odonnell is a 26 year old Male with a history of CHARLES, ADHD,and MDD presenting today for follow-up. Date [...] HPI PATIENT DATA: Generalized Anxiety Disorder Scale (CHARLES-7) CHARLES - 7 SCORES 01/17/2022 02/24/2022 05/25/2022 CHARLES-7 Score 6 6 6 (0-4) minimal anxiety, [...] which included preparing to see the patient, [id number] patient care, completing clinical documentation, and counseling and educating the patient/family/caregiver, ordering medications/labs. Isha Beckett APRN.CNP May 26, 2022 10:28 AM This note was partially generated using [employer] voice recognition system. Note was reviewed for accuracy. There may be minor misspellings or grammar miscues with [employer] voice recognition. documented in this encounter [facility] 04-04-2022 History of Present illness Narrative In lieu of an in-person visit due to COVID-19 concerns, a distance health visit was performed on the patient. Patient is aware that I am not fully able to assess symptoms and do a full physical examination including vital signs assessment at this time. Patient consents to this encounter. FOLLOW UP VISIT - ENDOSCOPY NAME: Amilcar Lu [facility] NO.: [id number] DATE OF SERVICE: 04/04/2022 : 1995 REFERRING PHYSICIAN: Yosef Resendez MD Amilcar is a patient I am [...] and independently interpreting results (not separately reported). Annabella Neff PA-C documented in this encounter [facility] 03-28-2022 Miscellaneous Notes Patient called stating since [...] Marilynn Singh LPN documented in this encounter [facility] 03-27-2022 Nurse Note Other: Nurse called and [...] ready for procedure. documented in this encounter [facility] 03-27-2022 Surgical operation note [facility] - Operative Report - AMILCAR Singh : 1995 AGE: 26. SEX: M PATIENT TYPE: O HOSP SVC: LOCATION: ATTENDING PHYSICIAN: Ariana Ward MD CSN NUMBER: [id number] DATE OF SURGERY/PROCEDURE: 03/27/2022 INCISION/PROCEDURE START TIME: 1135 INCISION CLOSE/PROCEDURE END TIME: 1204 PREOPERATIVE DIAGNOSIS: Diarrhea and nausea and upper abdominal bloating. POSTOPERATIVE DIAGNOSIS: Diarrhea, nausea, upper abdominal bloating, small hiatal hernia with sliding component and hemorrhoids. SURGEON: Valeria Gordon MD CABIN FURNISHINGS INSTALLER: No Additional Staff SURGERY/PROCEDURE: Esophagogastroduodenoscopy with biopsies and colonoscopy with biopsies. ANESTHESIA: Monitored anesthesia care LOCATION: [facility]. INDICATIONS: Amilcar Odonnell is a 26-year-old male, who presents with [...] and entire random colon. Valeria Gordon MD LW:[id number] /[id number] BRIEF OPERATIVE NOTE SURGERY DATE: 03/27/2022 Incision/Procedure Start Time: 11:35 cecal intubation time: 11:52 Incision Close/Procedure End Time: 12:04 Surgeon(s)/Proceduralist(s) and Agricultural Technical Officer(s): Evan Procedures: EGD with biopsies Colonoscopy with biopsies Anesthesia: MAC Findings: normal EGD except small hiatal hernia with sliding component, hemorrhoids Estimated Blood Loss: minimal Specimens: mucosal biopsies of the following - second portion of duodenum, antrum of stomach, GE junction, random colon (entire) Complications: None Preop Diagnosis: diarrhea, nausea Postop Diagnosis: same, diarrhea, nausea SIGNATURE: Valeria Gordon MD PATIENT NAME: Amilcar Odonnell DATE: March 27, 2022 TIME: 12:06 PM Acct: [id number] documented in this encounter [facility] 03-27-2022 Note HNO ID: [id number] Author: Madonna Horowitz RN Service: Nursing Author Type: Registered Nurse Type: Nursing Progress Note Filed: 03/27/2022 10:35 AM Note Text: Patient education completed. Patient ready for procedure. [facility] 03-27-2022 History and physical note UPDATED HISTORY [...] SIGNATURE: Valeria Gordon MD PATIENT NAME: Amilcar Odonnell DATE: March 27, 2022 TIME: 11:17 AM Source Note - Valeria Gordon MD - 03/27/2022 11:00 AM EST HISTORY AND PHYSICAL Amilcar Odonnell 1995 REFERRING PHYSICIAN: Annabella Neff PA-C CHIEF COMPLAINT: No chief complaint on [...] resp. rate 13, height 175.3 cm (5' 9), weight 89.8 kg (198 lb), SpO2 97 [...] Valeria Gordon MD HISTORY AND PHYSICAL Amilcar Odonnell 1995 REFERRING PHYSICIAN: Annabella Neff PA-C CHIEF COMPLAINT: No chief complaint on [...] resp. rate 13, height 175.3 cm (5' 9), weight 89.8 kg (198 lb), SpO2 97 [...] Valeria Gordon MD documented in this encounter [facility] 03-19-2022 History of Present illness Narrative HISTORY AND PHYSICAL Amilcar Odonnell 1995 REFERRING PHYSICIAN: Yosef Resendez MD CHIEF COMPLAINT: Consult HPI: The patient is a 26 year old male referred for endoscopy. Amilcar notes a 1-month history of diarrhea and abdominal cramping. Notes intermittent formed stools but mostly loose. Patient also complains of recent nausea. Notes family history of bowel issues-states father has had problems, unsure what type [...] entered by the nurse and reviewed by nv Nursing Notes: Cary David LPN 03/19/2022 1:38 [...] the PFSH and ROS obtained by others. Annabella Neff PA-C PHYSICAL EXAMINATION: General: The patient is 26 year old male, well nourished, well hydrated in no acute distress. The patient is oriented to time, place, and person. VITALS: Blood pressure 128/70, pulse 116, temperature 36.8 C (98.3 F), temperature source Temporal, resp. rate 14, height 175.3 cm (5' 9), weight 89.8 kg (198 lb), SpO2 95 [...] patient was offered a surgery/procedure at a [facility] facility. I have counseled the patient regarding [...] habits (R11.0) Nausea Consultation requested by Dr. Resendez for an opinion regarding diarrhea. My final recommendations will be communicated back to the requesting physician by way of shared Medical record or letter to requesting physician via US mail. Annabella Neff PA-C documented in this encounter [facility] 03-19-2022 Nurse Note REVIEW OF SYSTEMS: General: [...] Cary David LPN documented in this encounter [facility] 02-24-2022 History of Present illness Narrative Images [...] consent, visit was performed virtually. HPI: Amilcar Odonnell is a 26 year old Male with a history of CHARLES and MDD presenting today for follow-up. Date [...] HPI PATIENT DATA: Generalized Anxiety Disorder Scale (CHARLES-7) CHARLES - 7 SCORES 11/10/2021 01/17/2022 02/24/2022 CHARLES-7 Score 5 6 6 (0-4) minimal anxiety, [...] which included preparing to see the patient, mpmt-xr-bwfp patient care, completing clinical documentation, and counseling and educating the patient/family/caregiver, ordering medications/labs. Isha Beckett APRN.ORI February 24, 2022 4:41 PM This note was partially generated using [employer] voice recognition system. Note was reviewed for accuracy. There may be minor misspellings or grammar miscues with [employer] voice recognition. documented in this encounter [facility] 02-24-2022 Miscellaneous Notes TC to pt, notified [...] negative. How feeling? documented in this encounter [facility] 02-19-2022 Miscellaneous Notes Patient returned call and went over results, notes from Dr Garcia with understanding. TC patient, unable to leave message due to mailbox being full. Will try back later. Jessika Trevizo, RN Labs show he appears mildly dehydrated. Push fluids and recheck bmp this week documented in this encounter [facility] 02-17-2022 History of Present illness Narrative No [...] with more than 50% of the total xwsv-nl-jbkj time of the visit in counseling / coordination of care. documented in this encounter [facility] 02-10-2022 Instructions Licha Samuel Ma - 02/10/2022 2:41 PM EST Update office if diarrhea is not improving with use of Lomotil. documented in this encounter [facility] 02-10-2022 History of Present illness Narrative Chief Complaint Patient presents with: Diarrhea HPI Amilcar Odonnell is a 26 year old male who presents here today for an acute visit. [facility] symptoms for almost 2 [...] Past Histories independently gathered by the clinical ground crewman aircraft support and the remaining scribed note accurately describes my personal service to the patient. Medical Decision Making: Problems: Low: Acute, uncomplicated illness or injury Risk: Moderate: Drug management Medical Decision Making Level: 3 - Pablo Resendez MD The documentation for this note was completed by Licha Samuel Ma acting as scribe for Yosef Resendez MD. February 10, 2022 2:38 PM. Licha Samuel Ma documented in this encounter [facility] 01-17-2022 Instructions Isha Beckett APRN.CNP - 01/17/2022 10:55 AM EDT Vinay Mcmanus, It was good to talk with you today. Below is a summary of the plan that we discussed during your appointment for reference. Of course, if you have any questions or concerns do not hesitate to reach out to me via a message or call. Best, Isha Beckett APRN.CNP PLAN AND FOLLOW UP: YOU SHOULD [...] - Call the National Suicide Hotline at 3-786-KOBHFAJ ( ) or 8-341-845-TALK (8271) - Text 0VPUZ to 840447 Medication Update: Prozac 40 mg - take 1 capsule once daily. Continue Abilify and Buspar at the same dose. Next appointment: --Schedule in 4 to 6 weeks or sooner if needed -- You may call the department appointment line at [phone] to schedule your appointment. -- Please call my nurse Ruthie at [phone] or send me a message in Cryoocyte with any questions or concerns between appointments. documented in this encounter [facility] 01-17-2022 History of Present illness Narrative Images [...] consent, visit was performed virtually. HPI: Amilcar Odonnell is a 26 year old Male with a history of CHARLES and MDD presenting today for follow-up. Date [...] HPI PATIENT DATA: Generalized Anxiety Disorder Scale (CHARLES-7) CHARLES - 7 SCORES 10/14/2021 11/10/2021 01/17/2022 CHARLES-7 Score 8 5 6 (0-4) minimal anxiety, [...] which included preparing to see the patient, bchv-[id number] patient care, completing clinical documentation, and counseling and educating the patient/family/caregiver, ordering medications/labs. Isha Beckett APRN.CNP January 17, 2022 10:24 AM This note was partially generated using [employer] voice recognition system. Note was reviewed for accuracy. There may be minor misspellings or grammar miscues with [employer] voice recognition. documented in this encounter [facility] 12-09-2021 Miscellaneous Notes Patient has been identified by name and date of : Yes Requested Prescriptions Pending Prescriptions Disp Refills FLUoxetine (PROZAC) 20 mg capsule 30 capsule 2 Sig: Take 1 capsule by mouth once daily. RX INSTRUCTIONS: Patient aware RX will be sent to pharmacy. No need to notify patient. Follow up 01/17/2022. Ruthie Jordan LPN documented in this encounter [facility] 11-20-2021 Miscellaneous Notes Images from the original note were not included. Received Records & Appt Request - [facility] Saved in EP Outside Report Have a great day, Vivi Smith Floor Covering Printer Assistant documented in this encounter [facility] 11-11-2021 History of Present illness Narrative Images [...] consent, visit was performed virtually. HPI: Amilcar Odonnell is a 26 year old Male with a history of CHARLES and MDD presenting today for follow-up. Date [...] change PATIENT DATA: Generalized Anxiety Disorder Scale (CHARLES-7) CHARLES - 7 SCORES 09/16/2021 10/14/2021 11/10/2021 CHARLES-7 Score 6 8 5 (0-4) minimal anxiety, [...] which included preparing to see the patient, xhza-ht-mgzq patient care, completing clinical documentation, and counseling and educating the patient/family/caregiver, ordering medications/labs. Isha Beckett APRN.FRUIT DUMPER November 11, 2021 6:32 PM This note was partially generated using [employer] voice recognition system. Note was reviewed for accuracy. There may be minor misspellings or grammar miscues with [employer] voice recognition. documented in this encounter [facility] 11-11-2021 Miscellaneous Notes OK to refill as ordered Yosef Resendez MD Patient phones requesting refills as follows: Requested Prescriptions Pending Prescriptions Disp Refills busPIRone (BUSPAR) 15 mg tablet 90 tablet 5 Sig: Take 1 tablet by mouth three times daily. TOO-11/05/21 Labs-713/17 NOV-05/13/22 med filled 04/09/21 Please review and advise. Trenton Hernandez LPN documented in this encounter [facility] 11-05-2021 History of Present illness Narrative Chief Complaint Patient presents with: F/U 3 Month HPI Amilcar Odonnell is a 26 year old male who presents here today for a 3 month follow up. Pt here today for a 3 month follow up. Working at [employer]; taking care of 14 month old son. CHARLES/Depression - Pt referred to Behavioral Health at previous office visit due to medications being prescribed by this office not controlling his symptoms. Pt following with Isha, just recently started. Seeing on a monthly [...] Decision Making Level: 3 - Low Yosef Resendez MD documented in this encounter [facility] 10-22-2021 Miscellaneous Notes The following approved medication requests have been transmitted electronically. Pending Prescriptions Disp Refills ARIPIPRAZOLE 2 MG TABLET 30 tablet 5 Sig: Take 1 tablet by mouth once daily. GAUTAM: No Anirudh Paige APRN.CNP Last office visit: 08/23/21 F/u scheduled: 11/05/21 Jocelin Mcleod Ma documented in this encounter [facility] 10-14-2021 Instructions Isha Beckett APRN.CNP - 10/14/2021 2:12 PM EDT Vinay Mcmanus, It was good to meet and talk with you today. Below is a summary of the plan that we discussed during your appointment for reference. Of course, if you have any questions or concerns do not hesitate to reach out to me via a message or call. Best, Isha Beckett APRN.CNP PLAN AND FOLLOW UP: YOU SHOULD [...] - Call the National Suicide Hotline at 1-905-CEHPLLY ( ) or 7-705-983-TALK (3078) - Text 4HOPE to 566957 Medication Update: - For 1 week continue [...] may call the department appointment line at [phone] to schedule your appointment. -- Please call my nurse Ruthie at [phone] or send me a message in Cryoocyte with any questions or concerns between appointments. documented in this encounter [facility] 10-14-2021 History of Present illness Narrative Images [...] a 1 year old son. 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 Has been working for the past month. REFERRAL SOURCE: PCP - Dr. Yosef Resendez CHIEF COMPLAINT: Just get my depression and anxiety better. HPI: Per Michael Walsh [facility]'s note of 09/16/2021: Pt is a 25yr old white male who has a h/o anxiety,depression and ADHD -currently being tx by PCP with effexor and buspar -reports symptoms are not controlled -h/o being at [facility] in for anxiety and depression -at the [...] delusional thoughts -self isolates -impulsive with buying [employer] figures, at times will effect finances -periods [...] His symptoms worsened due to stress at [employer] when he was working there. He had a hard time keeping up with the pace. They would yell at you if you weren't caught up. He stopped working at [employer] in 2019. He had a breakdown at that time and attended IOP at [facility]. He saw a counselor after that but [...] and some chest tightness. Everything feels bunched up. Sometimes experiences nausea. These episodes happen once [...] but don't always have energy to do it. Guilt: a bit Energy: low. Once a [...] All other systems negative. Per Michael Walsh [facility]'s note of 09/16/2021: PSYCHIATRIC HISTORY: Prior Diagnosis: Anxiety Disorder and Major Depressive Disorder, ADHD Last Hospitalization: None Location of Hospitalization : N/A Reason for hospitalization/Length of Stay: N/A Psychiatrist/ FRUIT DUMPER: [facility] in Therapist: age [age],, [facility], counseling stopped going due to covid Cataloging Assistant: None Mental Health Agency/Practice: [facility] Did you the previous treatment helpful? A little bit ECT: None Previous Discontinued Psychiatric Med Trials: See HPI Per Michael Walsh [facility]'s note of 09/16/2021: SUBSTANCE USE HISTORY: Nicotine: None Caffeine: Coffee, 1 cups/day, Yousif, 3-4/day Alcohol: Maybe once at New Years Marijuana: x1-2 don't care for it Cocaine: No history of use or dependence Opioids: N/A, No history of use or dependence Amphetamines: prescribed Strattera, denies misuse Benzodiazepines: N/A, No history of use or dependence Hallucinogens : N/A, No history of use or dependence [employer] : N/A, No history of use or dependence Previous Treatments/ AA, NA, CA, etc.: denies Have you ever practiced sobriety: Not Applicable Are you interested in CD treatment? 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 denied any past legal history SPIRITUALITY/NONDENOMINATIONAL: Atheist FAMILY PSYCHIATRIC/SUBSTANCE USE HISTORY: Mother-Substance Abuse and Moni by proxy and Paternal Grandfather-Substance Abuse PATIENT DATA: Generalized Anxiety Disorder Scale (CHARLES-7) CHARLES - 7 SCORES 09/16/2021 10/14/2021 CHARLES-7 Score 6 8 (0-4) minimal anxiety, (5-9) [...] judging me even though they are probably not. Suicidal Ideation: No suicidal ideation, intent or [...] which included preparing to see the patient, yqph-qq-wyan patient care, completing clinical documentation, obtaining and/or reviewing separately obtained history, counseling and educating the patient/family/caregiver, ordering medications, tests, or procedures, communicating with other HCPs (not separately reported), independently interpreting results (not separately reported) and communicating results to the patient/family/caregiver. ADD ON PSYCHOTHERAPY CODE : No SIGNATURE: Isha Beckett APRN.CNP PATIENT NAME: Amilcar Odonnell DATE: October 14, 2021 TIME: 1:02 PM PAGER : documented in this encounter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 Diagnoses Pharyngeal dysphagia Procedures XR ESOPHAGRAM RADIOLOGIC EXAM ESOPHAGUS SINGLE CONTRAST STUDY Ana Rodriguez PA-C [address] [facility] [place] [address] [place] [id number] Referral ID Status Reason Start Date Expiration Date V isits Requested Visits Authorized [id number] Closed Auto-Generate d Referral 05/05/2023 06/03/2024 1 1 [facility] for visit Narrative* Outpatient Procedure (Routine) - Closed Specialty Diagnoses / Procedures Referred By Contac t Referred To Contact [facility] Diagnoses Elevated fecal calprotectin Loose stools Procedures COLONOSCOPY DIAGNOSTIC COLONOSCOPY FLX DX W/COLLJ SPEC WHEN PFRMD Ana Rodriguez PA-C [address] [place] [address] [facility] [address] [address] Referral ID Status Reason Start Date Expiration Date V isits Requested Visits Authorized [id number] Closed Auto-Generate d Referral 05/22/2023 05/21/2024 1 1 [facility] for visit Narrative* Outpatient Procedure (Routine) - Closed Specialty Diagnoses / Procedures Referred By Contac t Referred To Contact [facility] Diagnoses Gastroesophageal reflux disease with esophagitis without hemorrhage Procedures EGD DIAGNOSTIC ESOPHAGOGASTRODUODENOSC OPY TRANSORAL DIAGNOSTIC Ana Rodriguez PA-C [address] [place] [address] [facility] [place] [address] [place] [address] Referral ID Status Reason Start Date Expiration Date V isits Requested Visits Authorized [id number] Closed Auto-Generate d Referral 05/05/2023 05/05/2024 1 1 [facility] for visit Narrative* Diagnostic Procedure Only (Urgent) - Closed Specialty Diagnoses / Procedures Referred By Arnieac t Referred To Contact XR IMAGING Diagnoses Chronic pain of left knee Procedures XR KNEE GENERAL 4V AP BOTH/PA BOTH/LAT/MERC LEFT RADIOLOGIC EXAM KNEE COMPLETE 4/MORE VIEWS Yosef Resendez MD [facility] [place] [address] Phone: tel: fax: [place] [id number] Referral ID Status Reason Start Date Expiration Date V isits Requested Visits Authorized [id number] Closed Auto-Generate d Referral 06/21/2024 07/21/2025 1 1 [facility] Concerns Infection Onset Date Last Indicated Resolved Time COVID-19 Rule-Out 03/31/2021 03/31/2021 04/01/2021 4:06 AM EST Infection Onset Date Last Indicated Resolved Time COVID-19 Rule-Out 09/22/2021 09/22/2021 Reason for Referral Specialty Diagnoses / Procedures Referred By Contac t Referred To Contact Yosef Resendez MD [address] [place] [address] Referral ID Status Reason Start Date Expiration Date Visits Re quested Visits Authorized [id number] Closed 1 1 Specialty Diagnoses / Procedures Referred By Contac t Referred To Contact Diagnoses Recurrent major depressive disorder, in partial remission (HCC) Isha Beckett, BOILER ERECTOR.FRUIT [employer]MPER [address] [place] [address] Referral ID Status Reason Start Date Expiration Date V isits Requested Visits Authorized [id number] Pending Review 02/15/2024 04/15/2024 1 1 Specialty Diagnoses / Procedures Referred By Contac t Referred To Contact Diagnoses CHARLES (generalized anxiety disorder) Recurrent major depressive disorder, in partial remission (HCC) Isha Beckett, BOILER ERECTOR.[employer]UIT DUMPER [address] [place] [address] Referral ID Status Reason Start Date Expiration Date V isits Requested Visits Authorized [id number] Pending Review 02/15/2024 04/15/2024 1 1 Medications Administered Section Inactive Administered [...] Family History Records FoundNo Family History Records FoundNo Family History Records Found Advance Directives No Advanced Directives Records FoundNo Advanced Directives Records FoundNo Advanced Directives Records Found Additional Source Comments Source Comments (unrecognize d section and content) In the event this informatio n is protected by the Federal Confidentiality of Alcohol and Drug Abuse Patient Records regulations: The Federal rules restrict any use of the information to criminally investigate or prosecute any alcohol or drug abuse patient.[facility]In the event this information is protected by the Federal Confidentiality of Alcohol and Drug Abuse Patient Records regulations: The Federal rules restrict any use of the information to criminally investigate or prosecute any alcohol or drug abuse patient.[facility] HealthIn the event this information is protected by the Federal Confidentiality of Alcohol and Drug Abuse Patient Records regulations: The Federal rules restrict any use of the information to criminally investigate or prosecute any alcohol or drug abuse patient.[facility] HealthIn the event this information is protected by the Federal Confidentiality of Alcohol and Drug Abuse Patient Records regulations: The Federal rules restrict any use of the information to criminally investigate or prosecute any alcohol or drug abuse patient.[facility] HealthIn the event this information is protected by the Federal Confidentiality of Alcohol and Drug Abuse Patient Records regulations: The Federal rules restrict any use of the information to criminally investigate or prosecute any alcohol or drug abuse patient.[facility] HealthIn the event this information is protected by the Federal Confidentiality of Alcohol and Drug Abuse Patient Records regulations: The Federal rules restrict any use of the information to criminally investigate or prosecute any alcohol or drug abuse patient.[facility] HealthIn the event this information is protected by the Federal Confidentiality of Alcohol and Drug Abuse Patient Records regulations: The Federal rules restrict any use of the information to criminally investigate or prosecute any alcohol or drug abuse patient.[facility] HealthIn the event this information is protected by the Federal Confidentiality of Alcohol and Drug Abuse Patient Records regulations: The Federal rules restrict any use of the information to criminally investigate or prosecute any alcohol or drug abuse patient.[facility] HealthIn the event this information is protected by the Federal Confidentiality of Alcohol and Drug Abuse Patient Records regulations: The Federal rules restrict any use of the information to criminally investigate or prosecute any alcohol or drug abuse patient.[facility] HealthIn the event this information is protected by the Federal Confidentiality of Alcohol and Drug Abuse Patient Records regulations: The Federal rules restrict any use of the information to criminally investigate or prosecute any alcohol or drug abuse patient.[facility] HealthIn the event this information is protected by the Federal Confidentiality of Alcohol and Drug Abuse Patient Records regulations: The Federal rules restrict any use of the information to criminally investigate or prosecute any alcohol or drug abuse patient.[facility] HealthIn the event this information is protected by the Federal Confidentiality of Alcohol and Drug Abuse Patient Records regulations: The Federal rules restrict any use of the information to criminally investigate or prosecute any alcohol or drug abuse patient.[facility] HealthIn the event this information is protected by the Federal Confidentiality of Alcohol and Drug Abuse Patient Records regulations: The Federal rules restrict any use of the information to criminally investigate or prosecute any alcohol or drug abuse patient.[facility] HealthIn the event this information is protected by the Federal Confidentiality of Alcohol and Drug Abuse Patient Records regulations: The Federal rules restrict any use of the information to criminally investigate or prosecute any alcohol or drug abuse patient.[facility] HealthIn the event this information is protected by the Federal Confidentiality of Alcohol and Drug Abuse Patient Records regulations: The Federal rules restrict any use of the information to criminally investigate or prosecute any alcohol or drug abuse patient.[facility] HealthIn the event this information is protected by the Federal Confidentiality of Alcohol and Drug Abuse Patient Records regulations: The Federal rules restrict any use of the information to criminally investigate or prosecute any alcohol or drug abuse patient.[facility]In the event this information is protected by the Federal Confidentiality of Alcohol and Drug Abuse Patient Records regulations: The Federal rules restrict any use of the information to criminally investigate or prosecute any alcohol or drug abuse patient.[facility] HealthIn the event this information is protected by the Federal Confidentiality of Alcohol and Drug Abuse Patient Records regulations: The Federal rules restrict any use of the information to criminally investigate or prosecute any alcohol or drug abuse patient.[facility]In the event this information is protected by the Federal Confidentiality of Alcohol and Drug Abuse Patient Records regulations: The Federal rules restrict any use of the information to criminally investigate or prosecute any alcohol or drug abuse patient.[facility] HealthIn the event this information is protected by the Federal Confidentiality of Alcohol and Drug Abuse Patient Records regulations: The Federal rules restrict any use of the information to criminally investigate or prosecute any alcohol or drug abuse patient.[facility] HealthIn the event this information is protected by the Federal Confidentiality of Alcohol and Drug Abuse Patient Records regulations: The Federal rules restrict any use of the information to criminally investigate or prosecute any alcohol or drug abuse patient.[facility] the event this information is protected by the Federal Confidentiality of Alcohol and Drug Abuse Patient Records regulations: The Federal rules restrict any use of the information to criminally investigate or prosecute any alcohol or drug abuse patient.[facility]In the event this information is protected by the Federal Confidentiality of Alcohol and Drug Abuse Patient Records regulations: The Federal rules restrict any use of the information to criminally investigate or prosecute any alcohol or drug abuse patient.[facility]In the event this information is protected by the Federal Confidentiality of Alcohol and Drug Abuse Patient Records regulations: The Federal rules restrict any use of the information to criminally investigate or prosecute any alcohol or drug abuse patient.[facility]In the event this information is protected by the Federal Confidentiality of Alcohol and Drug Abuse Patient Records regulations: The Federal rules restrict any use of the information to criminally investigate or prosecute any alcohol or drug abuse patient.[facility]In the event this information is protected by the Federal Confidentiality of Alcohol and Drug Abuse Patient Records regulations: The Federal rules restrict any use of the information to criminally investigate or prosecute any alcohol or drug abuse patient.[facility]In the event this information is protected by the Federal Confidentiality of Alcohol and Drug Abuse Patient Records regulations: The Federal rules restrict any use of the information to criminally investigate or prosecute any alcohol or drug abuse patient.[facility]In the event this information is protected by the Federal Confidentiality of Alcohol and Drug Abuse Patient Records regulations: The Federal rules restrict any use of the information to criminally investigate or prosecute any alcohol or drug abuse patient.[facility]In the event this information is protected by the Federal Confidentiality of Alcohol and Drug Abuse Patient Records regulations: The Federal rules restrict any use of the information to criminally investigate or prosecute any alcohol or drug abuse patient.[facility]In the event this information is protected by the Federal Confidentiality of Alcohol and Drug Abuse Patient Records regulations: The Federal rules restrict any use of the information to criminally investigate or prosecute any alcohol or drug abuse patient.[facility]In the event this information is protected by the Federal Confidentiality of Alcohol and Drug Abuse Patient Records regulations: The Federal rules restrict any use of the information to criminally investigate or prosecute any alcohol or drug abuse patient.[facility]In the event this information is protected by the Federal Confidentiality of Alcohol and Drug Abuse Patient Records regulations: The Federal rules restrict any use of the information to criminally investigate or prosecute any alcohol or drug abuse patient.[facility]In the event this information is protected by the Federal Confidentiality of Alcohol and Drug Abuse Patient Records regulations: The Federal rules restrict any use of the information to criminally investigate or prosecute any alcohol or drug abuse patient.[facility]In the event this information is protected by the Federal Confidentiality of Alcohol and Drug Abuse Patient Records regulations: The Federal rules restrict any use of the information to criminally investigate or prosecute any alcohol or drug abuse patient.[facility]In the event this information is protected by the Federal Confidentiality of Alcohol and Drug Abuse Patient Records regulations: The Federal rules restrict any use of the information to criminally investigate or prosecute any alcohol or drug abuse patient.[facility]In the event this information is protected by the Federal Confidentiality of Alcohol and Drug Abuse Patient Records regulations: The Federal rules restrict any use of the information to criminally investigate or prosecute any alcohol or drug abuse patient.[facility]In the event this information is protected by the Federal Confidentiality of Alcohol and Drug Abuse Patient Records regulations: The Federal rules restrict any use of the information to criminally investigate or prosecute any alcohol or drug abuse patient.[facility]In the event this information is protected by the Federal Confidentiality of Alcohol and Drug Abuse Patient Records regulations: The Federal rules restrict any use of the information to criminally investigate or prosecute any alcohol or drug abuse patient.[facility]In the event this information is protected by the Federal Confidentiality of Alcohol and Drug Abuse Patient Records regulations: The Federal rules restrict any use of the information to criminally investigate or prosecute any alcohol or drug abuse patient.[facility]In the event this information is protected by the Federal Confidentiality of Alcohol and Drug Abuse Patient Records regulations: The Federal rules restrict any use of the information to criminally investigate or prosecute any alcohol or drug abuse patient.[facility]In the event this information is protected by the Federal Confidentiality of Alcohol and Drug Abuse Patient Records regulations: The Federal rules restrict any use of the information to criminally investigate or prosecute any alcohol or drug abuse patient.[facility]In the event this information is protected by the Federal Confidentiality of Alcohol and Drug Abuse Patient Records regulations: The Federal rules restrict any use of the information to criminally investigate or prosecute any alcohol or drug abuse patient.[facility]In the event this information is protected by the Federal Confidentiality of Alcohol and Drug Abuse Patient Records regulations: The Federal rules restrict any use of the information to criminally investigate or prosecute any alcohol or drug abuse patient.[facility]In the event this information is protected by the Federal Confidentiality of Alcohol and Drug Abuse Patient Records regulations: The Federal rules restrict any use of the information to criminally investigate or prosecute any alcohol or drug abuse patient.[facility]In the event this information is protected by the Federal Confidentiality of Alcohol and Drug Abuse Patient Records regulations: The Federal rules restrict any use of the information to criminally investigate or prosecute any alcohol or drug abuse patient.[facility]In the event this information is protected by the Federal Confidentiality of Alcohol and Drug Abuse Patient Records regulations: The Federal rules restrict any use of the information to criminally investigate or prosecute any alcohol or drug abuse patient.[facility]In the event this information is protected by the Federal Confidentiality of Alcohol and Drug Abuse Patient Records regulations: The Federal rules restrict any use of the information to criminally investigate or prosecute any alcohol or drug abuse patient.[facility]In the event this information is protected by the Federal Confidentiality of Alcohol and Drug Abuse Patient Records regulations: The Federal rules restrict any use of the information to criminally investigate or prosecute any alcohol or drug abuse patient.[facility]In the event this information is protected by the Federal Confidentiality of Alcohol and Drug Abuse Patient Records regulations: The Federal rules restrict any use of the information to criminally investigate or prosecute any alcohol or drug abuse patient.[facility]In the event this information is protected by the Federal Confidentiality of Alcohol and Drug Abuse Patient Records regulations: The Federal rules restrict any use of the information to criminally investigate or prosecute any alcohol or drug abuse patient.[facility]In the event this information is protected by the Federal Confidentiality of Alcohol and Drug Abuse Patient Records regulations: The Federal rules restrict any use of the information to criminally investigate or prosecute any alcohol or drug abuse patient.[facility]In the event this information is protected by the Federal Confidentiality of Alcohol and Drug Abuse Patient Records regulations: The Federal rules restrict any use of the information to criminally investigate or prosecute any alcohol or drug abuse patient.[facility]In the event this information is protected by the Federal Confidentiality of Alcohol and Drug Abuse Patient Records regulations: The Federal rules restrict any use of the information to criminally investigate or prosecute any alcohol or drug abuse patient.[facility]In the event this information is protected by the Federal Confidentiality of Alcohol and Drug Abuse Patient Records regulations: The Federal rules restrict any use of the information to criminally investigate or prosecute any alcohol or drug abuse patient.[facility]In the event this information is protected by the Federal Confidentiality of Alcohol and Drug Abuse Patient Records regulations: The Federal rules restrict any use of the information to criminally investigate or prosecute any alcohol or drug abuse patient.[facility]In the event this information is protected by the Federal Confidentiality of Alcohol and Drug Abuse Patient Records regulations: The Federal rules restrict any use of the information to criminally investigate or prosecute any alcohol or drug abuse patient.[facility]In the event this information is protected by the Federal Confidentiality of Alcohol and Drug Abuse Patient Records regulations: The Federal rules restrict any use of the information to criminally investigate or prosecute any alcohol or drug abuse patient.[facility]In the event this information is protected by the Federal Confidentiality of Alcohol and Drug Abuse Patient Records regulations: The Federal rules restrict any use of the information to criminally investigate or prosecute any alcohol or drug abuse patient.[facility]In the event this information is protected by the Federal Confidentiality of Alcohol and Drug Abuse Patient Records regulations: The Federal rules restrict any use of the information to criminally investigate or prosecute any alcohol or drug abuse patient.[facility]In the event this information is protected by the Federal Confidentiality of Alcohol and Drug Abuse Patient Records regulations: The Federal rules restrict any use of the information to criminally investigate or prosecute any alcohol or drug abuse patient.[facility]In the event this information is protected by the Federal Confidentiality of Alcohol and Drug Abuse Patient Records regulations: The Federal rules restrict any use of the information to criminally investigate or prosecute any alcohol or drug abuse patient.[facility]In the event this information is protected by the Federal Confidentiality of Alcohol and Drug Abuse Patient Records regulations: The Federal rules restrict any use of the information to criminally investigate or prosecute any alcohol or drug abuse patient.[facility]In the event this information is protected by the Federal Confidentiality of Alcohol and Drug Abuse Patient Records regulations: The Federal rules restrict any use of the information to criminally investigate or prosecute any alcohol or drug abuse patient.[facility]In the event this information is protected by the Federal Confidentiality of Alcohol and Drug Abuse Patient Records regulations: The Federal rules restrict any use of the information to criminally investigate or prosecute any alcohol or drug abuse patient.[facility]In the event this information is protected by the Federal Confidentiality of Alcohol and Drug Abuse Patient Records regulations: The Federal rules restrict any use of the information to criminally investigate or prosecute any alcohol or drug abuse patient.[facility]In the event this information is protected by the Federal Confidentiality of Alcohol and Drug Abuse Patient Records regulations: The Federal rules restrict any use of the information to criminally investigate or prosecute any alcohol or drug abuse patient.[facility]In the event this information is protected by the Federal Confidentiality of Alcohol and Drug Abuse Patient Records regulations: The Federal rules restrict any use of the information to criminally investigate or prosecute any alcohol or drug abuse patient.[facility]In the event this information is protected by the Federal Confidentiality of Alcohol and Drug Abuse Patient Records regulations: The Federal rules restrict any use of the information to criminally investigate or prosecute any alcohol or drug abuse patient.[facility]In the event this information is protected by the Federal Confidentiality of Alcohol and Drug Abuse Patient Records regulations: The Federal rules restrict any use of the information to criminally investigate or prosecute any alcohol or drug abuse patient.[facility]In the event this information is protected by the Federal Confidentiality of Alcohol and Drug Abuse Patient Records regulations: The Federal rules restrict any use of the information to criminally investigate or prosecute any alcohol or drug abuse patient.[facility]In the event this information is protected by the Federal Confidentiality of Alcohol and Drug Abuse Patient Records regulations: The Federal rules restrict any use of the information to criminally investigate or prosecute any alcohol or drug abuse patient.[facility] the event this information is protected by the Federal Confidentiality of Alcohol and Drug Abuse Patient Records regulations: The Federal rules restrict any use of the information to criminally investigate or prosecute any alcohol or drug abuse patient.[facility]In the event this information is protected by the Federal Confidentiality of Alcohol and Drug Abuse Patient Records regulations: The Federal rules restrict any use of the information to criminally investigate or prosecute any alcohol or drug abuse patient.[facility]In the event this information is protected by the Federal Confidentiality of Alcohol and Drug Abuse Patient Records regulations: The Federal rules restrict any use of the information to criminally investigate or prosecute any alcohol or drug abuse patient.[facility]In the event this information is protected by the Federal Confidentiality of Alcohol and Drug Abuse Patient Records regulations: The Federal rules restrict any use of the information to criminally investigate or prosecute any alcohol or drug abuse patient.[facility]In the event this information is protected by the Federal Confidentiality of Alcohol and Drug Abuse Patient Records regulations: The Federal rules restrict any use of the information to criminally investigate or prosecute any alcohol or drug abuse patient.[facility]In the event this information is protected by the Federal Confidentiality of Alcohol and Drug Abuse Patient Records regulations: The Federal rules restrict any use of the information to criminally investigate or prosecute any alcohol or drug abuse patient.[facility]In the event this information is protected by the Federal Confidentiality of Alcohol and Drug Abuse Patient Records regulations: The Federal rules restrict any use of the information to criminally investigate or prosecute any alcohol or drug abuse patient.[facility]In the event this information is protected by the Federal Confidentiality of Alcohol and Drug Abuse Patient Records regulations: The Federal rules restrict any use of the information to criminally investigate or prosecute any alcohol or drug abuse patient.[facility]In the event this information is protected by the Federal Confidentiality of Alcohol and Drug Abuse Patient Records regulations: The Federal rules restrict any use of the information to criminally investigate or prosecute any alcohol or drug abuse patient.[facility]In the event this information is protected by the Federal Confidentiality of Alcohol and Drug Abuse Patient Records regulations: The Federal rules restrict any use of the information to criminally investigate or prosecute any alcohol or drug abuse patient.[facility]In the event this information is protected by the Federal Confidentiality of Alcohol and Drug Abuse Patient Records regulations: The Federal rules restrict any use of the information to criminally investigate or prosecute any alcohol or drug abuse patient.[facility] HealthIn the event this information is protected by the Federal Confidentiality of Alcohol and Drug Abuse Patient Records regulations: The Federal rules restrict any use of the information to criminally investigate or prosecute any alcohol or drug abuse patient.[facility]In the event this information is protected by the Federal Confidentiality of Alcohol and Drug Abuse Patient Records regulations: The Federal rules restrict any use of the information to criminally investigate or prosecute any alcohol or drug abuse patient.[facility]In the event this information is protected by the Federal Confidentiality of Alcohol and Drug Abuse Patient Records regulations: The Federal rules restrict any use of the information to criminally investigate or prosecute any alcohol or drug abuse patient.[facility] Reason for Visit (unrecogniz ed section and content) Reason Comments Follow Up Depression/Anxiety Specialty Diagnoses / Procedures Referred By David t Referred To Contact Psychiatry / ADULT PSYCHIATRY Diagnoses 3 month follow up Procedures VIDEO PSYC/PSYL EST Isha Beckett, [employer] [address] [place] [address] Phone: tel: fax: Isha Beckett, [employer] [address] [place] [address] Phone: tel: fax: Referral ID Status Reason Start Date Expiration Date V isits Requested Visits Authorized [id number] New Request 05/16/2024 08/14/2024 1 1 Reason Comments Follow Up Specialty Diagnoses / Procedures Referred By Contac t Referred To Contact Psychiatry / ADULT PSYCHIATRY Diagnoses 4 TO 6 WEEK FOLLO WUP Procedures VIDEO PSYC/PSYL Yosef Camacho MD [address] [place] [address] Isha Beckett, [employer] [address] [place] [address] Referral ID Status Reason Start Date Expiration Date V isits Requested Visits Authorized [id number] Pending Review 02/24/2022 05/25/2022 1 1 Reason Comments Palpitations Reason Comments Medication side effects Reason Comments F/U 1 month Reason Comments Depression Reason Comments Consult Initial SW Pt Outr each Reason Comments Consult SW Pt Calling Reason Comments Consult SW Assessment [facility] Specialty Diagnoses / Procedures Referred By Contac t Referred To Contact Psychiatry / ADULT PSYCHOLOGY Diagnoses 1st eval Procedures VIDEO PSYC/PSYL Yosef Bravo MD [address] [place] [address] Jillian, Michael, CARPET MEASURER [address] [place] [address] Referral ID Status Reason Start Date Expiration Date V isits Requested Visits Authorized [id number] Authorized 03/23/2021 03/22/2022 99 99 Reason Comments [...] Comments Received Outside Medical Records Records - [facility] Reason Onset Date Comments Refill Request 12/09/2021 Reason Comments Diarrhea Reason Comments Acute Visit Reason Comments Results Reason Onset Date Comments Refill Request 03/17/2022 Reason Comments Patient Update Experiencing symptom s from colonoscopy Reason Comments Consult Specialty Diagnoses / Procedures Referred By Contac t Referred To Contact Psychiatry / ADULT PSYCHIATRY Diagnoses 2 TO 3 MONTH FOLLOW UP Procedures VIDEO TESSA/Yosef Hercules MD [address] [place] [address] Isha Beckett, BOILER ERECTOR.FRUIT DUMPER [address] [place] [address] Referral ID Status Reason Start Date Expiration Date V isits Requested Visits Authorized [id number] Pending Review 05/05/2022 08/03/2022 1 1 Reason Comments Vomiting With diarrhea x 3 da ys Specialty Diagnoses / Procedures Referred By Contac t Referred To Contact Psychiatry / ADULT PSYCHIATRY Diagnoses 4 TO 6 WEEK FOLLOW UP Procedures VIDEO TESSA/Yosef Hercules MD [address] [place] [address] Isha Beckett, BOILER ERECTOR.FRUIT DUMPER [address] [place] [address] Referral ID Status Reason Start Date Expiration Date V isits Requested Visits Authorized [id number] Pending Review 07/14/2022 10/12/2022 1 1 Reason Comments Back Pain Pt reported (LT) mid dle back pain, denied injury, onset AM. Reason Comments Refill Request Reason Onset Date Comments Refill Request Refill Request 04/29/2023 Reason Onset Date Comments Refill Request 04/29/2023 Reason Comments GERD Specialty Diagnoses / Procedures Referred By Contac t Referred To Contact Gastroenterology Diagnoses Gastroesophageal reflux disease with esophagitis, unspecified whether hemorrhage Hiatal hernia Epigastric pain Bowel habit changes Procedures CONSULT TO GASTROENTEROLOGY OFFICE/OUTPATIENT [facility] MDM 60 MINUTES Thelma Wiley PA-C [address] [place] [address] Referral ID Status Reason Start Date Expiration Date V isits Requested Visits Authorized [id number] Closed PCP Requested Referral 04/01/2023 03/31/2024 1 1 Reason Comments Appointment Rescheduled Reason Comments Follow Up Stomach meds Reason Comments Results Labs Reason Comments Results Stool Reason Comments Letter Reason Onset Date Comments Refill Request 07/26/2023 Reason Onset Date Comments Refill Request 08/10/2023 Reason Onset Date Comments Refill Request 09/29/2023 Reason Onset Date Comments Refill Request 10/03/2023 Reason Onset Date Comments Refill Request 10/30/2023 Specialty Diagnoses / Procedures Referred By Contac t Referred To Contact Psychiatry / ADULT PSYCHIATRY Diagnoses FOLLOW UP Procedures VIDEO PSYC/PSYL Yosef Camacho MD [address] [place] [address] Isha Beckett, BOILER ERECTOR.FRUIT DUMPER [address] [place] [address] Referral ID Status Reason Start Date Expiration Date V isits Requested Visits Authorized [id number] Pending Review 10/22/2023 01/20/2024 1 1 Reason Comments Patient Update Reason Comments Nasal Congestion drainage, cough, vom iting x 1 week Reason Comments Follow Up Specialty Diagnoses / Procedures Referred By Contbre t Referred To Contact Psychiatry / ADULT PSYCHIATRY Diagnoses follow up Procedures VIDEO PSYC/PSYL EST Isha Beckett, BOILER ERECTOR.FRUIT DUMPER [address] [place] [address] Isha Beckett, BOILER ERECTOR.FRUIT DUMPER [address] [place] [address] Referral ID Status Reason Start Date Expiration Date V isits Requested Visits Authorized [id number] New Request 01/25/2024 04/24/2024 1 1 Reason Comments Cough With runny nose, sor e throat & 3-4 episodes of emesis x 2 days Reason Comments Follow Up UC for viral URI and cough Reason Comments Head Congestion Reason Comments sinus congestion With pressure, sore throat, vomiting & runny nose x3 days Reason Comments Head Congestion With RAMOS, fatigue, vo miting since Reason Onset Date Comments Refill Request 05/04/2024 Reason Comments Follow Up Specialty Diagnoses / Procedures Referred By David t Referred To Contact Psychiatry / ADULT PSYCHIATRY Diagnoses 4-6 week follow up Procedures VIDEO PSYC/PSYL EST Isha Beckett, BOILER ERECTOR.FRUIT DUMPER [address] [place] [address] Phone: tel: fax: Isha Beckett, BOILER ERECTOR.FRUIT DUMPER [address] [place] [address] Phone: tel: fax: Referral ID Status Reason Start Date Expiration Date V isits Requested Visits Authorized [id number] New Request 06/20/2024 09/18/2024 1 1 Reason Comments Pain Left hip and knee 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 Reason Onset Date Comments Refill Request 07/25/2024 Reason Onset Date Comments Refill Request 08/29/2024 Care Teams (unrecognized sec tion and content) Outboard Motorboat Rigger Relationship Specialty Start Date End Date Yosef Resendez MD [address] [place], [place] [id number] PCP - General Family Practice 04/20/14 Outboard Motorboat Rigger Relationship Specialty Start Date End Date Yosef Resendez MD [address] [place], [place] [address] PCP - General Family Practice 04/20/14 Outboard Motorboat Rigger Relationship Specialty Start Date End Date Yosef Resendez MD [address] [place], [place] [id number] PCP - General Family Practice 04/20/14 Outboard Motorboat Rigger Relationship Specialty Start Date End Date Yosef Resendez MD [address] [place] [address] PCP - General Family Practice 04/20/14 Outboard Motorboat Rigger Relationship Specialty Start Date End Date Yosef Resendez MD [address] [facility] [place] [address] PCP - General Family Practice 04/20/14 Outboard Motorboat Rigger Relationship Specialty Start Date End Date Yosef Resendez MD [address] [facility] [place] [address] PCP - General Family Practice 04/20/14 Outboard Motorboat Rigger Relationship Specialty Start Date End Date Yosef Resendez MD [address] [facility] [place] [address] PCP - General Family Practice 04/20/14 Outboard Motorboat Rigger Relationship Specialty Start Date End Date Yosef Resendez MD [address] [facility] [place] [address] PCP - General Family Practice 04/20/14 Outboard Motorboat Rigger Relationship Specialty Start Date End Date Yosef Resendez MD [address] [facility] [place] [address] PCP - General Family Practice 04/20/14 Outboard Motorboat Rigger Relationship Specialty Start Date End Date Yosef Resendez MD [address] [facility] [place] [address] PCP - General Family Practice 04/20/14 Outboard Motorboat Rigger Relationship Specialty Start Date End Date Yosef Resendez MD [address] [facility] [place] [address] PCP - General Family Practice 04/20/14 Outboard Motorboat Rigger Relationship Specialty Start Date End Date Yosef Resendez MD [address] [facility] [place] [address] PCP - General Family Medicine 04/20/14 Outboard Motorboat Rigger Relationship Specialty Start Date End Date Yosef Resendez MD [address] [facility] [place] [address] PCP - General Family Medicine 04/20/14 Outboard Motorboat Rigger Relationship Specialty Start Date End Date Yosef Resendez MD [address] [facility] [place] [address] PCP - General Family Medicine 04/20/14 Outboard Motorboat Rigger Relationship Specialty Start Date End Date Yosef Resendez MD [address] [facility] [place] [address] PCP - General Family Medicine 04/20/14 Outboard Motorboat Rigger Relationship Specialty Start Date End Date Yosef Resendez MD [address] [facility] [place] [address] PCP - General Family Medicine 04/20/14 Outboard Motorboat Rigger Relationship Specialty Start Date End Date Yosef Resendez MD [address] [facility] [place] [place] [address] PCP - General Family Medicine 04/20/14 Outboard Motorboat Rigger Relationship Specialty Start Date End Date Yosef Resendez MD [address] [facility] [place] [place] [address] PCP - General Family Medicine 04/20/14 Outboard Motorboat Rigger Relationship Specialty Start Date End Date Yosef Resendez MD [address] [facility] [place] [place] [address] PCP - General Family Medicine 04/20/14 Outboard Motorboat Rigger Relationship Specialty Start Date End Date Yosef Resendez MD [address] [facility] [place] [address] PCP - General Family Medicine 04/20/14 Outboard Motorboat Rigger Relationship Specialty Start Date End Date Yosef Resendez MD [address] [facility] [place] [address] PCP - General Family Medicine 04/20/14 Outboard Motorboat Rigger Relationship Specialty Start Date End Date Yosef Resendez MD [address] [facility] [place] [place] [address] PCP - General Family Medicine 04/20/14 Outboard Motorboat Rigger Relationship Specialty Start Date End Date Yosef Resendez MD [address] [facility] [place] [address] PCP - General Family Medicine 04/20/14 Outboard Motorboat Rigger Relationship Specialty Start Date End Date Yosef Resendez MD [address] [facility] [place] [place] [address] PCP - General Family Medicine 04/20/14 Outboard Motorboat Rigger Relationship Specialty Start Date End Date Yosef Resendez MD [address] [facility] [place] [place] [address] PCP - General Family Medicine 04/20/14 Outboard Motorboat Rigger Relationship Specialty Start Date End Date Yosef Resendez MD [address] [facility] [place] [place] [address] PCP - General Family Medicine 04/20/14 Outboard Motorboat Rigger Relationship Specialty Start Date End Date Yosef Resendez MD [address] [facility] [place] [place] [address] PCP - General Family Medicine 04/20/14 Outboard Motorboat Rigger Relationship Specialty Start Date End Date Yosef Resendez MD [address] [facility] [place] [address] PCP - General Family Medicine 04/20/14 Outboard Motorboat Rigger Relationship Specialty Start Date End Date Yosef Resendez MD [address] [facility] [place] [place] [address] PCP - General Family Medicine 04/20/14 Outboard Motorboat Rigger Relationship Specialty Start Date End Date Yosef Resendez MD [address] [facility] [place] [place] [address] PCP - General Family Medicine 04/20/14 Outboard Motorboat Rigger Relationship Specialty Start Date End Date Yosef Resendez MD [address] [facility] [place] [place] [address] PCP - General Family Medicine 04/20/14 Outboard Motorboat Rigger Relationship Specialty Start Date End Date Yosef Resendez MD [address] [facility] [place] [address] PCP - General Family Medicine 04/20/14 Outboard Motorboat Rigger Relationship Specialty Start Date End Date Yosef Resendez MD [address] [facility] [place] [place] [address] PCP - General Family Medicine 04/20/14 Outboard Motorboat Rigger Relationship Specialty Start Date End Date Yosef Resendez MD [address] [facility] [place] [place] [address] PCP - General Family Medicine 04/20/14 Outboard Motorboat Rigger Relationship Specialty Start Date End Date Yosef Resendez MD [address] [facility] [place] [place] [address] PCP - General Family Medicine 04/20/14 Outboard Motorboat Rigger Relationship Specialty Start Date End Date Yosef Resendez MD [address] [facility] [place] [place] [address] PCP - General Family Medicine 04/20/14 Outboard Motorboat Rigger Relationship Specialty Start Date End Date Yosef Resendez MD [address] [facility] [place] [address] PCP - General Family Medicine 04/20/14 Outboard Motorboat Rigger Relationship Specialty Start Date End Date Yosef Resendez MD [address] [facility] [place] [address] PCP - General Family Medicine 04/20/14 Outboard Motorboat Rigger Relationship Specialty Start Date End Date Yosef Resendez MD [address] [facility] [place] [place] [address] PCP - General Family Medicine 04/20/14 Outboard Motorboat Rigger Relationship Specialty Start Date End Date Yosef Resendez MD [address] [facility] [place] [place] [address] PCP - General Family Medicine 04/20/14 Outboard Motorboat Rigger Relationship Specialty Start Date End Date Yosef Resendez MD [address] [facility] [place] [address] PCP - General Family Medicine 04/20/14 Outboard Motorboat Rigger Relationship Specialty Start Date End Date Yosef Resendez MD [address] [facility] [place] [place] [address] PCP - General Family Medicine 04/20/14 Outboard Motorboat Rigger Relationship Specialty Start Date End Date Yosef Resendez MD [address] [facility] [place] [place] [address] PCP - General Family Medicine 04/20/14 Outboard Motorboat Rigger Relationship Specialty Start Date End Date Yosef Resendez MD [address] [facility] [place] [address] PCP - General Family Medicine 04/20/14 Outboard Motorboat Rigger Relationship Specialty Start Date End Date Yosef Resendez MD [address] [facility] [place] [address] PCP - General Family Medicine 04/20/14 Outboard Motorboat Rigger Relationship Specialty Start Date End Date Yosef Resendez MD [address] [facility] [place] [address] PCP - General Family Medicine 04/20/14 Ligia Kuhn BOILER ERECTOR.FRUIT DUMPER [address] [facility] [place] [address] Machine Operator Assistant Family Medicine 02/28/24 Outboard Motorboat Rigger Relationship Specialty Start Date End Date Yosef Resendez MD [address] [place] [address] PCP - General Family Medicine 04/20/14 Ligia Kuhn, BOILER ERECTOR.FRUIT DUMPER [address] [facility] [place] [address] Machine Operator Assistant Family Medicine 02/28/24 Outboard Motorboat Rigger Relationship Specialty Start Date End Date Yosef Resendez MD [address] [place] [address] PCP - General Family Medicine 04/20/14 Ligia Kuhn, BOILER ERECTOR.FRUIT DUMPER [address] [facility] [place] [address] Machine Operator Assistant Family Medicine 02/28/24 Anirudh Paige BOILER ERECTOR.FRUIT DUMPER [address] [facility] [place] [address] Machine Operator Assistant Family Medicine 03/08/24 Outboard Motorboat Rigger Relationship Specialty Start Date End Date Yosef Resendez MD [address] [place] [address] PCP - General Family Medicine 04/20/14 Ligia Kuhn APRN.FRUIT DUMPER [address] [place] [address] Machine Operator Assistant Family Medicine 02/28/24 Anirudh Paige APRN.FRUIT DUMPER [address] [place] [address] Machine Operator Assistant Family Medicine 03/08/24 Outboard Motorboat Rigger Relationship Specialty Start Date End Date Yosef Resendez MD [address] [place] [address] PCP - General Family Medicine 04/20/14 Ligia Kuhn APRN.FRUIT DUMPER [address] [place] [address] Machine Operator Assistant Family Medicine 02/28/24 Anirudh Paige APRN.FRUIT DUMPER [address] [place] [address] Machine Operator Assistant Family Medicine 03/08/24 Outboard Motorboat Rigger Relationship Specialty Start Date End Date Yosef Resendez MD [address] [place] [address] PCP - General Family Medicine 04/20/14 Ligia Kuhn APRN.FRUIT DUMPER [address] [place] [address] Machine Operator Assistant Family Medicine 02/28/24 Anirudh Paige APRN.FRUIT DUMPER [address] [place] [address] Machine Operator Assistant Family Medicine 03/08/24 Outboard Motorboat Rigger Relationship Specialty Start Date End Date Yosef Resendez MD [address] [place] [address] PCP - General Family Medicine 04/20/14 Ligia Kuhn APRN.FRUIT DUMPER [address] [place] [address] Machine Operator Assistant Family Medicine 02/28/24 Anirudh Paige APRN.FRUIT DUMPER [address] [place] [address] [facility] Outboard Motorboat Rigger Relationship Specialty Start Date End Date Yosef Resendez MD [address] [place] [address] PCP - General Family Medicine 04/20/14 Ligia Kuhn APRN.FRUIT DUMPER [address] [place] [address] Machine Operator Assistant Family Medicine 02/28/24 Anirudh Paige APRN.FRUIT DUMPER [address] [place] [address] Machine Operator Assistant Family Medicine 03/08/24 Outboard Motorboat Rigger Relationship Specialty Start Date End Date Yosef Resendez MD [address] [place] [address] PCP - General Family Medicine 04/20/14 Ligia Kuhn APRN.FRUIT DUMPER [address] [place] [address] Machine Operator Assistant Family Medicine 02/28/24 Anirudh Paige APRN.FRUIT DUMPER [address] [place] [address] [facility] 03/08/24 Outboard Motorboat Rigger Relationship Specialty Start Date End Date Yosef Resendez MD [address] [place] [address] PCP - General Family Medicine 04/20/14 Ligia Kuhn APRN.FRUIT DUMPER [address] [place] [address] [facility] 02/28/24 Anirudh Paige APRN.FRUIT DUMPER [address] [place] [address] [facility] 03/08/24 Outboard Motorboat Rigger Relationship Specialty Start Date End Date Yosef Resendez MD [address] [place] [address] PCP - General Family Medicine 04/20/14 Ligia Kuhn APRN.FRUIT DUMPER [address] [place] [address] [facility] Medicine 02/28/24 Anirudh Paige APRN.FRUIT DUMPER [address] [place] [address] [facility] Medicine 03/08/24 Outboard Motorboat Rigger Relationship Specialty Start Date End Date Yosef Resendez MD [address] [place] [address] PCP - General Family Medicine 04/20/14 Ligia Kuhn APRN.FRUIT DUMPER [address] [facility] [address] Machine Operator Assistant Family Medicine 02/28/24 Anirudh Paige APRN.FRUIT DUMPER [address] [place] [address] Machine Operator Assistant Family Medicine 03/08/24 Outboard Motorboat Rigger Relationship Specialty Start Date End Date Yosef Resendez MD [address] [facility] [place] [address] PCP - General Family Medicine 04/20/14 Ligia Kuhn APRN.FRUIT DUMPER [address] [facility] [place] [place] [address] Machine Operator Assistant Family Medicine 02/28/24 Anirudh Paige APRN.FRUIT DUMPER [address] [facility] [place] [address] Machine Operator Assistant Family Medicine 03/08/24 Outboard Motorboat Rigger Relationship Specialty Start Date End Date Yoesf Resendez MD [address] [facility] [place] [address] PCP - General Family Medicine 04/20/14 Ligia Kuhn APRN.FRUIT DUMPER [address] [facility] [place] [address] Machine Operator Assistant Family Medicine 02/28/24 Anirudh Paige BOILER ERECTOR.FRUIT DUMPER [address] [facility] [place] [address] Machine Operator Assistant Family Medicine 03/08/24 Outboard Motorboat Rigger Relationship Specialty Start Date End Date Yosef Resendez MD [address] [facility] [place] [address] PCP - General Family Medicine 04/20/14 Anirudh Paige APRN.FRUIT DUMPER [address] [place] [address] Machine Operator Assistant Family Medicine 03/08/24 (unrecognized sect ion and content) No Status Records FoundNo Status Records FoundNo Status Records Found INFORMATION SOURCE (unrecogn ized section and content) DATE CREATED AUTHOR 04/01/2022 [facility] DATE CREATED AUTHOR AUTHOR'S ORGANIZ ATION 06/05/2024 [facility] DATE CREATED AUTHOR AUTHOR'S ORGANIZ ATION 07/27/2024 [facility] FOR RECORDS PERTAINING TO PATIENTS WHO ARE [...] BE BASED ON THE PRIMARY CLINICAL RECORDS. [employer] [facility]. provides no warranty or guarantee of the accuracy or completeness of information in this document.
[2024-09-18 16:07] LABS: Absolute Neutrophil Count 3.9 X10^3/uL (2.0-7.7); Basophil# 0.04 X10^3/uL; Basophil% 0.6 % (0-1); Eosinophil# 0.29 X10^3/uL; Eosinophils% 4.3 % (0-5); Hematocrit 44.7 % (40-54); Hemoglobin 15.7 g/dL (13.0-16.5); Lymphocyte % 29.5 % (19-41); Mean Corp Hgb Conc 35.1 g/dL (32-36); Mean Corpuscular Hgb 28.3 pg (27.0-32.0); Mean Corpuscular Volume 80.7 fL (80-94); Mean Platelet Vol. 10.3 fl (6.2-12.0); Monocyte# 0.51 X10^3/uL; Monocyte% 7.5 % (0-10); NRBC Flagged by Analyzer 0 % (0-5); Neutrophil # 3.94 X10^3/uL (2.7-7.7); Platelet Count 196 K/mm3 (150-450); RBC Distribution Width CV 11.5 % (11.6-14.6); RBC Distribution Width SD 33.2 fl (35.1-43.9); Red Blood Count 5.54 M/mm3 (4.6-6.2); White Blood Count 6.8 K/mm3 (4.4-11.0)
[2024-09-18 16:29] LABS: Anion Gap 11 (5-15); BUN 14 mg/dL (4-19); BUN/Creat Ratio 11.1 RATIO (10-20); Calcium,Total 9.3 mg/dL (7.6-11.0); Chloride 102 mmol/L (98-108); Creatinine, Serum 1.22 mg/dL (0.70-1.20); EST Glomerular Filtration Rate 82 (>60); Estimated Creatinine Clearance 105.91 ml/min (50-250); Glucose 113 mg/dL (70-99); Sodium Level 139 mmol/L (133-145)
[2024-09-18 17:33] VITALS: PULSE 79; RESP 16; O2SAT 98
[2024-09-18] MEDS: Ketorolac 15 MG/ML Vial IV (17:55)
[2024-09-18] MEDS: SUMAtriptan 6 MG/0.5 ML Vial SC (17:55)
[2024-09-18] MEDS: dexAMETHasone 4 MG/ML Vial IV (17:56)
[2024-09-18 18:57] VITALS: BP 128/70; PULSE 79; RESP 16; TEMP 36.6; O2SAT 98
== END 2024-09-18 18:58 | disposition home or self-care (01) ==
PROVIDERS: Emergency Provider Emergency Medicine; PCP Family Medicine; Referring Provider Emergency Medicine; Visit Provider Emergency Medicine
DX: R51.9 Headache, unspecified (principal); F32.9 Major depressive disorder, single episode, unspecified; Z79.899 Other long term (current) drug therapy; K21.9 Gastro-esophageal reflux disease without esophagitis; F41.1 Generalized anxiety disorder
CPT/HCPCS: 70450; 80048; 85025; 87631; 96361; 96374; 99283; A4216; J3030